=== PATIENT | female | born 1945 | race Caucasian/White ===

== ENCOUNTER → 2016-04-25 | Outpatient (CLI) | payer MEDICARE, OTHER ==
[2015-11-24 08:30] VITALS: BP 123/66
[~2016-04-25] MED LIST: ALPR0.5T6 PO; ALPR1TAB2 PO; ALPR1TAB6 PO; AMIT10TA PO; AMLO10TA2 PO; ASPI81TA9 PO; ATOR10TA PO; ATOR10TA60 PO; Aspirin PO; BACL10TA PO; BESI5DRO OP; BLAC160C PO; BLAC540C4 PO; BUPR150T6 PO; CALC200T3 PO; CARI350T PO; CHOL100017 PO; CHOL4POW2 PO; CLON1TAB3 PO; CYCL10TA2 PO; DIPH1TAB5 PO; DOCU-27 PO; DULA1.5P SQ; DULO60CA44 PO; DULO60CA6 PO; ESTR1PAT66 TD; ESTR1PAT68 TD; FENT1PAT13 TD; FENT1PAT15 TP; FERR-26 PO; FURO-68 PO; FURO40TA4 PO; GABA-585 PO; HYDR-2666 PO; HYDR-2678 PO; HYDR-971 PO; IBUP100T8 PO; IBUP200C PO; INSU100C4 SQ; INSU100I13 SQ; INSU100V10 IJ; INSU100V13 SQ; INSU100V8 SQ; KETO1DRO OP; LABE100T3 PO; LIDO700A4 TP; LISI-334 PO; LOXA10CA PO; MECL12.52 PO; MELA10TA2 PO; MELA1TAB11 PO; MELO-150 PO; MELO-156 PO; METO100T2 PO; METO25TA4 PO; NAPR500T PO; PANT40TA5 PO; POTA2.5T PO; POTA99TA10 PO; PRAM0.125 PO; ROPI0.5T PO; SITA100T PO; TEMA15CA PO; TIZA4CAP PO; TIZA4TAB8 PO; TRAZ150T55 PO; TRAZ50TA15 PO; ZOLP5TAB4 PO; muscle relaxer PO; xanax PO
--- NOTE | 2016-04-26 12:44 | PAIN ---
DATE OF SERVICE: 04/25/2016 DIAGNOSES: 1. Lumbar radiculopathy with post-lumbar laminectomy syndrome. 2. Cervical radiculopathy with cervical degenerative disk disease. HISTORY OF PRESENT ILLNESS: The patient is a 70-year-old female who returns for followup status post previous spinal cord stimulator trial in October of last year, which she did well and had a paddle lead placed in December of last year as well. The patient has had difficulty trying to contact the [employer] medical service representative; however, has had no luck getting the stimulator programmed since it has been placed. The patient reports that it is still working that she can only turn it up or down. She has no good coverage at this time, it is covering the back and the legs to the knees, but needs it to be further into the lower extremities. The patient is very frustrated as this has been several months, she has been trying to call the [employer] sales representative uniforms without any return calls and with ends at each corner. We discussed this in some detail today to get her the name of our [employer] sales representative uniforms who is currently with the company to contact and will make that contact for her to get this reprogrammed. The patient reports the pain is 8 on a scale of 10, low back, bilateral lower extremities, worse when the knee is down where she needs to stimulation at its most, is unable to obtain that at this time and thus does need reprogramming. The patient reports otherwise no new motor or sensory deficits. No new bowel or bladder incontinence or other complaints. Surgery went well. She recovered from it very easily and without events. PHYSICAL EXAMINATION: VITAL SIGNS: The patient's blood pressure 158/77, pulse 76, respirations 18, temperature is 98.3 degrees Fahrenheit, weight is 194 pounds. GENERAL: The patient is awake, alert, oriented, appropriate, very pleasant demeanor. The patient accompanied by her . HEENT: Head shows normocephalic, atraumatic. Extraocular movements are intact and symmetrical. Oral cavity shows mucous membranes moist and pink. NECK: Shows anterior throat supple. CHEST: Shows breath sounds clear to auscultation bilaterally. HEART: Shows S1 and S2 clear. ABDOMEN: Soft, obese, nontender, nondistended. BACK: Shows spine grossly midline. Well healed surgical scars noted in the mid thoracic distribution as well as over the gluteus with easily palpable spinal cord stimulator battery, which is easily palpated, nontender. Wounds appear well healed without erythema without tenderness on palpation. The patient shows good rotation motion of lumbar spine, both laterally as well as extension and flexion. EXTREMITIES: Lower extremities show deep tendon reflexes at 1+ in the patellar and tendo calcaneus tendons. Motor exam is approximately 4 on scale of 5 with quadriceps and hamstring flexion, but intact and 5/5 dorsiflexion and extension bilaterally. Options were discussed with the patient and the patient's old chart was reviewed as her current medication regimen updated. Current review of systems updated today as well. We will contact the [employer] sales representative uniforms, Rosas Carlisle, for reprogramming and have this set up as soon as possible for the patient. The patient will follow up for the reprogramming or any other concerns she may have at this time. RHETT HURD MD DR: TAMIE/antonio JOB#: [id number] / [id number]
== END | disposition home or self-care (01) ==
LOC: PNCL 09:05
PROVIDERS: ATTEND Anesthesiology
DX: M54.16 Radiculopathy, lumbar region (principal); M96.1 Postlaminectomy syndrome, not elsewhere classified
CPT/HCPCS: G0463

== ENCOUNTER 2016-05-03 21:01 | Inpatient (IN) | payer MEDICARE ==
[~2016-05-03] VITALS: Ht 160 cm; Wt 89.4 kg
[2016-05-03 21:44] LABS: BASO # 0.1 x10^3/uL (0.0-0.2); BASO % 1 % (0-3); EOS % 1 % (0-3); HEMATOCRIT 40.6 % (36.0-47.0); HEMOGLOBIN 13.3 g/dL (12.0-15.5); LYMPH # 2.7 x10^3/uL (1.0-4.8); LYMPH % 17 % (24-48); MEAN CORPUSCULAR HEMOGLOBIN 27 pg (25-35); MEAN CORPUSCULAR HGB CONC 33 g/dL (31-37); MEAN CORPUSCULAR VOLUME 81 fL (79-100); MONO % 5 % (0-9); NEUT % 77 % (31-73); PLATELET COUNT 244 x10^3/uL (140-400); RED BLOOD COUNT 5.01 x10^6/uL (3.50-5.40); RED CELL DISTRIBUTION WIDTH 14.9 % (11.5-14.5); WHITE BLOOD COUNT 16.2 x10^3/uL (4.0-11.0)
[2016-05-03 21:56] LABS: CALCIUM 9.6 mg/dL (8.5-10.1); GFR 55.1; POTASSIUM 4.2 mmol/L (3.5-5.1)
[2016-05-03] MEDS ORDERED: IV NORMAL SALINE 1000ML BAG 1,000 ML IV SCH (22:00)
[2016-05-03] MEDS ORDERED: ACETAMINOPHEN 500 MG TABLET PO ONE (22:00)
[2016-05-03] MEDS ORDERED: ONDANSETRON PF 4 MG/2 ML VIAL. IV ONE (22:00)
[2016-05-03 22:02] LABS: ALBUMIN 3.6 g/dL (3.4-5.0); ALBUMIN/GLOBULIN RATIO 0.9 (1.0-1.7); TOTAL BILIRUBIN 0.3 mg/dL (0.2-1.0); TOTAL PROTEIN 7.7 g/dL (6.4-8.2)
[2016-05-03 22:17] LABS: BILIRUBIN,URINE NEGATIVE (NEG); GLUCOSE,URINE >=1000 mg/dL (NEG); NITRITE,URINE NEGATIVE (NEG); PROTEIN,URINE NEGATIVE (NEG-TRACE); UROBILINOGEN,URINE 0.2 mg/dL (0.2 mg/dL)
[2016-05-03 22:26] LABS: BACTERIA,URINE 0 /HPF (0-FEW); SQUAMOUS EPITHELIAL CELL,UR MOD /LPF
[2016-05-03] MEDS ORDERED: HYDROCODONE/APAP 5/325MG TABLET. PO ONE (23:45)
[2016-05-04] VITALS (7 sets, daily range): BP systolic 111–136; BP diastolic 53–81
[2016-05-04] MEDS ORDERED: CEFTRIAXONE 1GM IVPB FOR OMNI 50 ML IV ONE (00:30)
[2016-05-04] MEDS ORDERED: AZITHRMYCN 500MG IVPB FOR OMNI 250 ML IV ONE (00:30)
[2016-05-04] MEDS: AZITHROMYCIN 500 MG in IV NORMAL SALINE 250ML 250 ML IV SCH ×2 (01:21→21:28)
--- NOTE | 2016-05-04 01:29 | ED.ADGEN ---
Past Medical History Past Medical History: Anxiety, CAD, CVA, Depression, Diabetes-Type II, Fibromyalgia, Hypertension, Other Additional Past Medical Histor: neuropathy, cataracts, subarachnoid hemorrhage( 2002) Past Surgical History: Pacemaker, Other Additional Past Surgical Histo: cardiac cath, cataract removal, permanent pacemaker Alcohol Use: None Drug Use: None Adult General Chief Complaint Chief Complaint: FLU SYMPTOM HPI HPI Patient is a 70 year old woman, history of type 2 diabetes mellitus, hypertension, subarachnoid hemorrhage, fibromyalgia, who presents emergency Department with a complaint of generalized malaise, rhinorrhea, cough productive of sputum, headache, body aches, nausea, for the past several days. Patient denies any fevers or chills, any recent travel or surgery, history of DVT or PE, no swelling of the extremities, any sick contacts or exposures. Review of Systems Review of Systems Constitutional: Denies fever or chills. [] Generalized malaise. Eyes: Denies change in visual acuity. [] HENT: Denies nasal congestion or sore throat. [] Respiratory: Cough, productive of sputum, no shortness of breath. Cardiovascular: Denies chest pain or edema. [] GI: Denies abdominal pain, vomiting, bloody stools or diarrhea. Nausea. : Denies dysuria. [] Musculoskeletal: Denies back pain or joint pain. [] Integument: Denies rash. [] Neurologic: Denies headache, focal weakness or sensory changes. [] Endocrine: Denies polyuria or polydipsia. [] Lymphatic: Denies swollen glands. [] Psychiatric: Denies depression or anxiety. [] Current Medications Current Medications Current Medications Medications (Trade) Dose Ordered Sig/Marly Start Time Stop Time Status Last Admin Dose Admin Acetaminophen (Tylenol) 1,000 mg 1X ONCE 05/03/16 22:00 05/03/16 22:01 DC 05/03/16 21:56 1,000 MG Acetaminophen/ Hydrocodone Bitart (Lortab 5/325) 1 tab 1X ONCE 05/03/16 23:45 05/03/16 23:46 DC 05/03/16 23:37 1 TAB Ondansetron HCl (Zofran) 4 mg 1X ONCE 05/03/16 22:00 05/03/16 22:01 DC 05/03/16 21:56 4 MG Sodium Chloride (Iv Sodium Chloride 0.9% 1000ml Bag) 1,000 ml @ 1,000 mls/hr Q1H 05/03/16 22:00 05/03/16 22:59 DC 05/03/16 21:56 1,000 MLS/HR Allergies Allergies Allergies Coded Allergies Type Severity Reaction Last Updated Verified pramipexole Allergy Severe renal failure 11/06/13 Yes Sulfa (Sulfonamide Antibiotics) Allergy Intermediate 11/05/13 Yes clavulanic acid Allergy Intermediate 06/03/14 Yes Physical Exam Physical Exam Constitutional: Well developed, well nourished, no acute distress, non-toxic appearance. [] HENT: Normocephalic, atraumatic, bilateral external ears normal, oropharynx moist, no oral exudates, nose normal. [] Eyes: PERRLA, EOMI, conjunctiva normal, no discharge. [] Neck: Normal range of motion, no tenderness, supple, no stridor. [] Cardiovascular:Heart rate regular rhythm, no murmur, S1, S2, mildly tachycardic. No rubs or gallops. [] Lungs & Thorax: Patient with coarse breath sounds at bases bilaterally, mild scattered wheezing. No rales. No chest wall crepitus or tenderness. [] Abdomen: Bowel sounds normal, soft, no tenderness, no rebound, rigidity, no guarding, no masses, no pulsatile masses. [] Skin: Warm, dry, no erythema, no rash. [] Back: No tenderness, no CVA tenderness. [] Extremities: No tenderness, no cyanosis, no clubbing, ROM intact, no edema. Negative Homans sign. [] Neurologic: Alert and oriented X 3, normal motor function, normal sensory function, no focal deficits noted. [] Psychologic: Affect normal, judgement normal, mood normal. [] Current Patient Data Vital Signs Vital Signs Date Time Temp Pulse Resp B/P Pulse Ox O2 Delivery O2 Flow Rate FiO2 05/03/16 21:25 101.0 106 18 192/85 96 Room Air 101.0 Lab Values Laboratory Tests Test 05/03/16 21:27 05/03/16 22:10 White Blood Count 16.2x10^3/uL (4.0-11.0) H Red Blood Count 5.01x10^6/uL (3.50-5.40) Hemoglobin 13.3g/dL (12.0-15.5) Hematocrit 40.6% (36.0-47.0) Mean Corpuscular Volume 81fL (79-100) Mean Corpuscular Hemoglobin 27pg (25-35) Mean Corpuscular Hemoglobin Concent 33g/dL (31-37) Red Cell Distribution Width 14.9% (11.5-14.5) H Platelet Count 244x10^3/uL (140-400) Neutrophils (%) (Auto) 77% (31-73) H Lymphocytes (%) (Auto) 17% (24-48) L Monocytes (%) (Auto) 5% (0-9) Eosinophils (%) (Auto) 1% (0-3) Basophils (%) (Auto) 1% (0-3) Neutrophils # (Auto) 12.5x10^3uL (1.8-7.7) H Lymphocytes # (Auto) 2.7x10^3/uL (1.0-4.8) Monocytes # (Auto) 0.8x10^3/uL (0.0-1.1) Eosinophils # (Auto) 0.2x10^3/uL (0.0-0.7) Basophils # (Auto) 0.1x10^3/uL (0.0-0.2) Sodium Level 139mmol/L (136-145) Potassium Level 4.2mmol/L (3.5-5.1) Chloride Level 99mmol/L (98-107) Carbon Dioxide Level 34mmol/L (21-32) H Anion Gap 6 (6-14) Blood Urea Nitrogen 13mg/dL (7-20) Creatinine 1.0mg/dL (0.6-1.0) Estimated GFR (Cockcroft-Gault) 55.1 BUN/Creatinine Ratio 13 (6-20) Glucose Level 317mg/dL (70-99) H Calcium Level 9.6mg/dL (8.5-10.1) Total Bilirubin 0.3mg/dL (0.2-1.0) Aspartate Amino Transferase (AST) 22U/L (15-37) Alanine Aminotransferase (ALT) 32U/L (14-59) Alkaline Phosphatase 125U/L (46-116) H Total Protein 7.7g/dL (6.4-8.2) Albumin 3.6g/dL (3.4-5.0) Albumin/Globulin Ratio 0.9 (1.0-1.7) L Urine Collection Type U cath Urine Color Yellow Urine Clarity Clear Urine pH 7.0 Urine Specific Drexel 1.020 Urine Protein Negativemg/dL (NEG-TRACE) Urine Glucose (UA) >=1000mg/dL (NEG) Urine Ketones (Stick) Negativemg/dL (NEG) Urine Blood Negative (NEG) Urine Nitrite Negative (NEG) Urine Bilirubin Negative (NEG) Urine Urobilinogen Dipstick 0.2mg/dL (0.2 mg/dL) Urine Leukocyte Esterase Negative (NEG) Urine RBC 1-2/HPF (0-2) Urine WBC 1-4/HPF (0-4) Urine Squamous Epithelial Cells Mod/LPF Urine Bacteria 0/HPF (0-FEW) Urine Hyaline Casts Few/HPF Urine Mucus Slight/LPF Laboratory Tests 05/03/16 21:27 Laboratory Tests 05/03/16 21:27 EKG EKG 0935: Sinus tachycardia, heart rate 105 beats minute, right axis deviation, paced rhythm, but interpretation. QTC of 456, DE of 214, QRS of 138, does not meet STEMI criteria. As interpreted by me. Radiology/Procedures Radiology/Procedures Chest x-ray: Two-view: Patient with pacemaker in place, noted to have a right elevated hemidiaphragm, with possible atelectasis versus infiltrate, no pneumothorax, no bony or soft tissue abnormalities identified. [] Course & Med Decision Making Course & Med Decision Making Pertinent Labs and Imaging studies reviewed. (See chart for details) Based on patient's examination with coarse breath sounds noted at right lung base, x-ray and laboratory findings with leukocytosis of 16.2, concern for pneumonia. No recent hospitalization or other exposures, patient is agreeable for admission to the hospital and treatment for community-acquired pneumonia. Oxygen saturation is 93% on room air, respiratory rate is unlabored, patient received nebulizer treatment, steroid, initiated on community-acquired antibiotic protocol in the emergency department. Also received IV fluids, as she denied ability to eat over the past several days secondary to nausea and generalized malaise. Nausea resolved, patient resting comfortably and reevaluation. Admit to Dr. Meyer of internal medicine, bridge orders for community-acquired pneumonia and supportive care as stated, as a full admission to the medical telemetry floor due to tachycardia, which is improved, and borderline oxygen saturations. Dragon Disclaimer Dragon Disclaimer This electronic medical record was generated, in whole or in part, using a voice recognition dictation system. Departure Impression: Primary Impression: CAP (community acquired pneumonia) Additional Impression: Fever Disposition: 09 ADMITTED INPATIENT Admitting Physician: Azalia Meyer Condition: IMPROVED Problem Qualifiers Additional Impression: Fever Fever type: unspecified Qualified Code: R50.9 - Fever, unspecified CARMEN VILLALTA DO May 04, 2016 01:29
[2016-05-04] MEDS ORDERED: ONDANSETRON PF 4 MG/2 ML VIAL. IV PRN (01:30)
[2016-05-04] MEDS ORDERED: ACETAMINOPHEN 325 MG TABLET. PO PRN (01:30)
[2016-05-04] MEDS ORDERED: methylPREDNISolone SOD SUCC PF 125 MG/2 ML VIAL. IV ONE (02:00)
[2016-05-04] MEDS: IV NORMAL SALINE 1000ML BAG 1,000 ML IV SCH ×2 (02:03→16:54)
[2016-05-04] MEDS ORDERED: ROPI0.5T PO (04:11)
--- NOTE | 2016-05-04 06:12 | EKG ---
[facility] [address] [place] [address] Test Date: 2016-05-03 Test Time: 21:35:12 Pat Name: GIORGIO LOVE Department: Room: Gender: F Company Marker: : 1945 Requested By: CARMEN VILLALTA Order Number: [id number] Reading MD: Measurements Intervals [place]une Rate: 105 P: -156 AK: 214 QRS: 100 QRSD: 138 T: -12 QT: 342 QTc: 456 Interpretive Statements SINUS TACHYCARDIA PROLONGED AK INTERVAL RIGHTWARD AXIS NON SPECIFIC INTRAVENTRICULAR BLOCK QRS(T) CONTOUR ABNORMALITY CONSISTENT WITH ANTERIOR INFARCT POSSIBLY RECENT CONSISTENT WITH HIGH LATERAL INFARCT PROBABLY OLD ABNORMAL ECG RI6.01 No previous ECG available for comparison
[2016-05-04 06:55] LABS: OBC FLU VALID
[2016-05-04] MEDS: IPRATRPIUM/ALBUTEROL 0.5/2.5MG 3 ML NEBU. NEB SCH ×4 (07:23→20:00)
--- NOTE | 2016-05-04 07:52 | RAD ---
Chest, 2 views, 05/03/2016: History: Flulike symptoms Comparison is made to a study from 11/15/2015. A left-sided transvenous pacemaker remains in place with 2 leads extending in the right heart. Spinal stimulator leads extend into the thoracic spinal canal. There is mild chronic elevation of the right hemidiaphragm. The left ventricle is mildly prominent. The pulmonary vascularity is normal. There is mild streaky atelectasis in the right base. The left lung is clear. There is no evidence of pleural fluid. IMPRESSION: 1. Mild left ventricular prominence. 2. Mild chronic elevation of the right hemidiaphragm with mild right basilar atelectasis.
[2016-05-04] MEDS ORDERED: ALPRAZOLAM 1 MG TABLET PO PRN (08:15)
[2016-05-04] MEDS ORDERED: CHOLESTYRAMINE/ASPARTAME 4 GM PACKET PO PRN (08:15)
[2016-05-04] MEDS ORDERED: tiZANidine 4 MG TABLET. PO PRN (08:15)
[2016-05-04] MEDS ORDERED: TEMAZEPAM 15 MG CAPSULE PO PRN (08:15)
[2016-05-04] MEDS ORDERED: MECLIZINE HCL 12.5 MG TABLET. PO PRN (08:15)
[2016-05-04] MEDS ORDERED: HYDROCODONE/APAP 5/325MG TABLET. PO PRN (08:15)
[2016-05-04] MEDS: LABETALOL HCL 100 MG TABLET PO SCH ×2 (08:58→21:35)
[2016-05-04] MEDS: buPROPion XL 150 MG TAB.ER.24H PO SCH (08:58)
[2016-05-04] MEDS: INSULIN ASPART 300 UNITS/3 ML INSULN.PEN SQ SCH ×5 (09:02→16:58)
[2016-05-04] MEDS ORDERED: DEXTROSE 50% 25 GM / 50ML DISP.SYRIN. IV PRN (09:30)
[2016-05-04] MEDS ORDERED: ALPRAZOLAM 0.5 MG TABLET PO PRN (11:15)
[2016-05-04] MEDS ORDERED: INSULIN ASPART 300 UNITS/3 ML INSULN.PEN SQ SCH (11:30)
[2016-05-04] MEDS ORDERED: INSULIN DETEMIR 300 UNITS/3 ML INSULN.PEN. SQ STA (12:02)
--- NOTE | 2016-05-04 12:06 | PDOC1 ---
History and Physical Date of Admission Date of Admission DATE: 05/04/16 TIME: 11:56 Identification/Chief Complaint Chief Complaint SOA, fevers at home Source Source: Caregiver, Chart review, Patient History of Present Illness History of Present Illness 70 y/o female about a week hx SOA, fevers, greenish sputum, weak. MAybe some transient hypoxia at ER, CXR shows some atelectasis or haziness on the bases, Pt started on CAP coverage, Pt has chronic back hx, multiple back sxs, has indwelling spinal stimulator. Wheezing less, ambulating slowly in the halls. WBC 16 Started on CAP coverage Lives at home with family BS 500s today, got 20 novolog plus SS and now BS 400s ON high doses insulin at home Past Medical History Cardiovascular: CAD, HTN, Hyperlipidemia, Other CENTRAL NERVOUS SYSTEM: CVA, Other GI: GERD Heme/Onc: Anemia NOS Hepatobiliary: No pertinent hx Psych: Anxiety, Depression Musculoskeletal: low back pain, Osteoarthritis, Other Rheumatologic: Fibromyalgia Infectious disease: No pertinent hx Renal/: No pertinent hx Endocrine: Diabetes Past Surgical History Past Surgical History: Pacemaker, Cataract Removal Family History Family History: Diabetes, Hypertension, Family History Unknown Social History Smoke: No ALCOHOL: none Drugs: None Current Problem List Problem List Problems Medical Problems: (1) CAP (community acquired pneumonia) Status: Acute (2) Fever Status: Acute Problems: Current Medications Current Medications Current Medications Sodium Chloride (Iv Sodium Chloride 0.9% 1000ml Bag) 1,000 ml @ 1,000 mls/hr Q1H IV Last administered on 05/03/16 21:56; Start 05/03/16 at 22:00; Stop at 22:59; Status DC Ondansetron HCl (Zofran) 4 mg 1X ONCE IV Last administered on 05/03/16 21:56 ; Start 05/03/16 at 22:00; Stop 05/03/16 at 22:01; Status DC Acetaminophen (Tylenol) 1,000 mg 1X ONCE PO Last administered on 05/03/16 21: 56; Start 05/03/16 at 22:00; Stop 05/03/16 at 22:01; Status DC Acetaminophen/ Hydrocodone Bitart 1 tab 1 tab 1X ONCE PO Last administered on 05/03/16 23:37; Start 05/03/16 at 23:45; Stop 05/03/16 at 23:46; Status DC Ceftriaxone Sodium 1 gm/ Sodium Chloride 50 ml @ 100 mls/hr Q24H IV ; Start at 22:00 Azithromycin 500 mg/Sodium Chloride 250 ml @ 250 mls/hr Q24H IV ; Start at 21:00; Stop 05/07/16 at 20:59 Ceftriaxone Sodium 50 ml @ 100 mls/hr 1X ONCE IV Last administered on 01:21; Start 05/04/16 at 00:30; Stop 05/04/16 at 00:59; Status DC Azithromycin (Zithromax 500mg Ivpb For Omni) 250 ml @ 250 mls/hr 1X ONCE IV Last administered on 05/04/16 01:21; Start 05/04/16 at 00:30; Stop 05/04/16 at 01:29; Status DC Ondansetron HCl 4 mg 4 mg PRN Q8HRS PRN IV NAUSEA/VOMITING; Start 05/04/16 at 01:30; Stop 05/05/16 at 01:29 Sodium Chloride (Iv Sodium Chloride 0.9% 1000ml Bag) 1,000 ml @ 75 mls/hr [id number] IV Last administered on 05/04/16 02:03; Start 05/04/16 at 01:17; Stop 05/05/16 at 01:16 Acetaminophen (Tylenol) 650 mg PRN Q4HRS PRN PO FEVER Last administered on 05/04 05:44; Start 05/04/16 at 01:30; Stop 05/05/16 at 01:29 Albuterol/ Ipratropium (Duoneb) 3 ml RTQID NEB Last administered on 05/04/16 07:23; Start 05/04/16 at 08:00; Stop 05/05/16 at 07:59 Methylprednisolone Sodium Succinate (Solu-Medrol 125mg Vial) 125 mg 1X ONCE IV Last administered on 05/04/16 02:03; Start 05/04/16 at 02:00; Stop 05/04/16 at 02:01; Status DC Insulin Aspart (Novolog) 20 units TIDAC SQ ; Start 05/04/16 at 11:30; Stop 05/04 at 11:30; Status DC Alprazolam (Xanax) 0.5 mg PRN DAILY PRN PO ANXIETY / AGITATION Last administered on 05/04/16 08:58; Start 05/04/16 at 08:15; Stop 05/04/16 at 11:11 ; Status DC Bupropion HCl (Wellbutrin Xl) 150 mg DAILY PO Last administered on 05/04/16 08 :58; Start 05/04/16 at 09:00 Gabapentin (Neurontin) 300 mg QHS PO ; Start 05/04/16 at 21:00 Acetaminophen/ Hydrocodone Bitart (Lortab 5/325) 1 tab PRN Q8HRS PRN PO BREAKTHROUGH PAIN Last administered on 05/04/16 08:58; Start 05/04/16 at 08:15 Labetalol HCl (Trandate) 50 mg BID PO Last administered on 05/04/16 08:58; Start 05/04/16 at 09:00 Meclizine HCl (Antivert) 12.5 mg PRN TID PRN PO DIZZINESS; Start 05/04/16 at 08 :15 Pantoprazole Sodium (Protonix) 40 mg QHS PO ; Start 05/04/16 at 21:00 Temazepam (Restoril) 30 mg PRN QHS PRN PO INSOMNIA; Start 05/04/16 at 08:15 Tizanidine HCl (Zanaflex) 4 mg PRN TID PRN PO MUSCLE SPASMS; Start 05/04/16 at 08:15 Ergocalciferol (Vitamin D2) 50,000 unit QSU PO ; Start 05/06/16 at 09:00 Cholestyramine Resin (Questran Light) 4 gm PRN DAILY PRN PO STOMACH CRAMPING; Start 05/04/16 at 08:15 Non-Formulary Medication 1.5 mg QSU SQ ; Start 05/06/16 at 16:00; Status UNV Duloxetine HCl (Cymbalta) 60 mg QHS PO ; Start 05/04/16 at 21:00 Insulin Detemir (Levemir) 60 units QHS SQ ; Start 05/04/16 at 21:00 Ropinirole HCl (Requip) 0.5 mg QHS PO ; Start 05/04/16 at 21:00 Insulin Aspart (Novolog) 20 units TIDAC SQ Last administered on 2/17/17at 09:02 ; Start 05/04/16 at 08:30 Insulin Aspart (Novolog) 0-9 UNITS TIDWMEALS SQ ; Start 05/04/16 at 12:00 Dextrose 12.5 gm PRN Q15MIN PRN IV SEE COMMENTS; Start 05/04/16 at 09:30 Alprazolam (Xanax) 0.5 mg PRN DAILY PRN PO ANXIETY / AGITATION; Start 05/04/16 at 11:15 Active Scripts Active Reported Requip (Ropinirole Hcl) 0.5 Mg Tablet 1 Tab PO QHS Cymbalta (Duloxetine Hcl) 60 Mg Capsule.dr 60 Mg PO QHS Levemir (Insulin Detemir) 100 Unit/1 Ml Vial 60 Units SQ QHS Trulicity (Dulaglutide) 1.5 Mg/0.5 Ml Pen.injctr 1.5 Mg SQ QSU Gabapentin 100 Mg Capsule 300 Mg PO QHS Cholestyramine Packet (Cholestyramine (With Sugar)) 4 Gm Powd.pack 4 Gm PO PRN DAILY PRN Meclizine Hcl 12.5 Mg Tablet 0.5-1 Tab PO PRN TID PRN Zanaflex (Tizanidine Hcl) 4 Mg Tablet 1-2 Tab PO PRN TID PRN Temazepam 15 Mg Capsule 30 Mg PO HS PRN Vitamin D (Cholecalciferol (Vitamin D3)) 10,000 Unit Capsule 50,000 Unit PO QSU Atorvastatin Calcium 10 Mg Tablet 10 Mg PO HS Novolog (Insulin Aspart) 100 Unit/1 Ml Cartridge 8 Unit SQ TIDAC Pantoprazole Sodium 40 Mg Tablet.dr 1 Tab PO QHS Alprazolam 1 Mg Tablet 0.5-1 Tab PO PRN DAILY PRN Labetalol Hcl 100 Mg Tablet 0.5 Tab PO BID [place] 5-325 Tablet (Acetaminophen/Hydrocodone Bitart) 1 Each Tablet 1 Tab PO PRN Q8HRS PRN Bupropion Xl (Bupropion Hcl) 150 Mg Tab.er.24h 2 Tab PO DAILY Allergies Allergies: Coded Allergies: pramipexole (Verified Allergy, Severe, renal failure, 11/06/13) Sulfa (Sulfonamide Antibiotics) (Verified Allergy, Intermediate, 11/05/13) clavulanic acid (Verified Allergy, Intermediate, 06/03/14) ROS General: YES: Fatigue, Malaise PSYCHOLOGICAL ROS: No: Anxiety, Behavioral Disorder, Concentration difficultie , Decreased libido, Depression, Disorientation, Hallucinations, Hostility, Irritablity, Memory difficulties, Mood Swings, Obsessive thoughts, Other, Physical abuse, Sexual abuse, Sleep disturbances, Suicidal ideation Eyes: No Blurry vision, No Decreased vision, No Double vision, No Dry eyes, No Excessive tearing, No Eye Pain, No Itchy Eyes, No Loss of vision, No Other, No Photophobia, No Scotomata, No Uses contacts, No Uses glasses HEENT: No: Epistaxis, Heacaches, Hearing change, Nasal congestion, Nasal discharge, Oral lesions, Other, Sinus pain, Sneezing, Snoring, Sore Throat, Tinnitus, Vertigo, Visual Changes, Vocal changes Hematological and Lymphatic: No: Bleeding Problems, Blood Clots, Blood Transfusions, Brusing, Night Sweats, Other, Pallor, Swollen Lymph Nodes ENDOCRINE: No: Breast Changes, Galactorrhea, Hair Pattern Changes, Hot Flashes , Malaise/lethargy, Mood Swings, Other, Palpitations, Polydipsia/polyuria, Skin Changes, Temperature Intolerance, Unexpected Weight Changes Respiratory: YES: Cough, SOB with excertion, Shortness of breath, Sputum Changes Cardiovascular: No Chest Pain, No Edema, No Lt Headedness, No Orthopnea, No Other, No Palpitations, No Paroxysmal Noc. Dyspnea Gastrointestinal: No Abdominal Pain, No Constipation, No Diarrhea, No Hematochezia, No Melena, No Nausea, No Other, No Vomiting Genitourinary: No , No , No , No , No , No , No , No Discharge, No Dysuria, No Flank Pain, No Frequency, No Hematuria, No Incontinence, No Other, No Pain, No Retention, No Urgency Musculoskeletal: No Gait Disturbance, No Joint Pain, No Joint Stiffness, No Joint Swelling, No Muscle Pain, No Muscular Weakness, No Other, No Pain In:, No Swelling In: Neurological: No Behavorial Changes, No Bowel/Bladder ControlChng, No Confusion , No Dizziness, No Gait Disturbance, No Headaches, No Impaired Coord/balance, No Memory Loss, No Numbness/Tingling, No Other, No Seizures, No Speech Problems , No Tremors, No Visual Changes, No Weakness Skin: No Acne, No Dry Skin, No Eczema, No Hair Changes, No Lumps, No Mole Changes, No Mottling, No Nail Changes, No Other, No Pruritus, No Rash, No Skin Lesion Changes Physical Exam General: Alert, Cooperative HEENT: PERRLA Lungs: Normal air movement Heart: S1S2, RRR, no thrills, no rubs Cardiovascular: S1, S2 Breasts: Normal Abdomen: Normal bowel sounds, Soft, No tenderness, No hepatosplenomegaly, No masses Rectal Exam: not examined PELVIC: Nml ext genitalia Extremities: No clubbing, No cyanosis, No edema, Normal pulses, No tenderness/ swelling Skin: No rashes, No breakdown, No significant lesion Neuro: Normal gait, Normal speech, Strength at 5/5 X4 ext, Normal tone, Sensation intact, Cranial nerves 3-12 NL, Reflexes 2+ Psych/Mental Status: Mental status NL, Mood NL Vitals Vitals Vital Signs Date Time Temp Pulse Resp B/P Pulse Ox O2 Delivery O2 Flow Rate FiO2 05/04/16 11:12 98.2 91 18 131/59 93 Room Air 98.2 05/04/16 08:00 1.5 Labs Labs Laboratory Tests Test 05/03/16 21:27 05/03/16 21:30 05/03/16 22:10 White Blood Count 16.2x10^3/uL (4.0-11.0) Red Blood Count 5.01x10^6/uL (3.50-5.40) Hemoglobin 13.3g/dL (12.0-15.5) Hematocrit 40.6% (36.0-47.0) Mean Corpuscular Volume 81fL (79-100) Mean Corpuscular Hemoglobin 27pg (25-35) Mean Corpuscular Hemoglobin Concent 33g/dL (31-37) Red Cell Distribution Width 14.9% (11.5-14.5) Platelet Count 244x10^3/uL (140-400) Neutrophils (%) (Auto) 77% (31-73) Lymphocytes (%) (Auto) 17% (24-48) Monocytes (%) (Auto) 5% (0-9) Eosinophils (%) (Auto) 1% (0-3) Basophils (%) (Auto) 1% (0-3) Neutrophils # (Auto) 12.5x10^3uL (1.8-7.7) Lymphocytes # (Auto) 2.7x10^3/uL (1.0-4.8) Monocytes # (Auto) 0.8x10^3/uL (0.0-1.1) Eosinophils # (Auto) 0.2x10^3/uL (0.0-0.7) Basophils # (Auto) 0.1x10^3/uL (0.0-0.2) Sodium Level 139mmol/L (136-145) Potassium Level 4.2mmol/L (3.5-5.1) Chloride Level 99mmol/L (98-107) Carbon Dioxide Level 34mmol/L (21-32) Anion Gap 6 (6-14) Blood Urea Nitrogen 13mg/dL (7-20) Creatinine 1.0mg/dL (0.6-1.0) Estimated GFR (Cockcroft-Gault) 55.1 BUN/Creatinine Ratio 13 (6-20) Glucose Level 317mg/dL (70-99) Calcium Level 9.6mg/dL (8.5-10.1) Total Bilirubin 0.3mg/dL (0.2-1.0) Aspartate Amino Transf (AST/SGOT) 22U/L (15-37) Alanine Aminotransferase (ALT/SGPT) 32U/L (14-59) Alkaline Phosphatase 125U/L (46-116) Total Protein 7.7g/dL (6.4-8.2) Albumin 3.6g/dL (3.4-5.0) Albumin/Globulin Ratio 0.9 (1.0-1.7) Influenza Type A Antigen Negative (NEGATIVE) Influenza Type B Antigen Negative (NEGATIVE) Urine Collection Type U cath Urine Color Yellow Urine Clarity Clear Urine pH 7.0 Urine Specific [place] 1.020 Urine Protein Negativemg/dL (NEG-TRACE) Urine Glucose (UA) >=1000mg/dL (NEG) Urine Ketones (Stick) Negativemg/dL (NEG) Urine Blood Negative (NEG) Urine Nitrite Negative (NEG) Urine Bilirubin Negative (NEG) Urine Urobilinogen Dipstick 0.2mg/dL (0.2 mg/dL) Urine Leukocyte Esterase Negative (NEG) Urine RBC 1-2/HPF (0-2) Urine WBC 1-4/HPF (0-4) Urine Squamous Epithelial Cells Mod/LPF Urine Bacteria 0/HPF (0-FEW) Urine Hyaline Casts Few/HPF Urine Mucus Slight/LPF Laboratory Tests Test 05/03/16 21:27 05/03/16 21:30 05/03/16 22:10 White Blood Count 16.2x10^3/uL (4.0-11.0) Red Blood Count 5.01x10^6/uL (3.50-5.40) Hemoglobin 13.3g/dL (12.0-15.5) Hematocrit 40.6% (36.0-47.0) Mean Corpuscular Volume 81fL (79-100) Mean Corpuscular Hemoglobin 27pg (25-35) Mean Corpuscular Hemoglobin Concent 33g/dL (31-37) Red Cell Distribution Width 14.9% (11.5-14.5) Platelet Count 244x10^3/uL (140-400) Neutrophils (%) (Auto) 77% (31-73) Lymphocytes (%) (Auto) 17% (24-48) Monocytes (%) (Auto) 5% (0-9) Eosinophils (%) (Auto) 1% (0-3) Basophils (%) (Auto) 1% (0-3) Neutrophils # (Auto) 12.5x10^3uL (1.8-7.7) Lymphocytes # (Auto) 2.7x10^3/uL (1.0-4.8) Monocytes # (Auto) 0.8x10^3/uL (0.0-1.1) Eosinophils # (Auto) 0.2x10^3/uL (0.0-0.7) Basophils # (Auto) 0.1x10^3/uL (0.0-0.2) Sodium Level 139mmol/L (136-145) Potassium Level 4.2mmol/L (3.5-5.1) Chloride Level 99mmol/L (98-107) Carbon Dioxide Level 34mmol/L (21-32) Anion Gap 6 (6-14) Blood Urea Nitrogen 13mg/dL (7-20) Creatinine 1.0mg/dL (0.6-1.0) Estimated GFR (Cockcroft-Gault) 55.1 BUN/Creatinine Ratio 13 (6-20) Glucose Level 317mg/dL (70-99) Calcium Level 9.6mg/dL (8.5-10.1) Total Bilirubin 0.3mg/dL (0.2-1.0) Aspartate Amino Transf (AST/SGOT) 22U/L (15-37) Alanine Aminotransferase (ALT/SGPT) 32U/L (14-59) Alkaline Phosphatase 125U/L (46-116) Total Protein 7.7g/dL (6.4-8.2) Albumin 3.6g/dL (3.4-5.0) Albumin/Globulin Ratio 0.9 (1.0-1.7) Influenza Type A Antigen Negative (NEGATIVE) Influenza Type B Antigen Negative (NEGATIVE) Urine Collection Type U cath Urine Color Yellow Urine Clarity Clear Urine pH 7.0 Urine Specific [place] 1.020 Urine Protein Negativemg/dL (NEG-TRACE) Urine Glucose (UA) >=1000mg/dL (NEG) Urine Ketones (Stick) Negativemg/dL (NEG) Urine Blood Negative (NEG) Urine Nitrite Negative (NEG) Urine Bilirubin Negative (NEG) Urine Urobilinogen Dipstick 0.2mg/dL (0.2 mg/dL) Urine Leukocyte Esterase Negative (NEG) Urine RBC 1-2/HPF (0-2) Urine WBC 1-4/HPF (0-4) Urine Squamous Epithelial Cells Mod/LPF Urine Bacteria 0/HPF (0-FEW) Urine Hyaline Casts Few/HPF Urine Mucus Slight/LPF VTE Prophylaxis Ordered VTE Prophylaxis Devices: Yes VTE Pharmacological Prophylaxi: Yes Assessment/Plan Assessment/Plan 1. Presumed CAP 2. Acute hypoxic respi failure 3. CHropnic lumbago 4. GIORGIO, vasomotor 5. Mod PCM 6. HTN 7. DM 2 uncontrolled - got steroids PLAN: Extra levemir 10 x 1 now 20 units tid plus high dose SSI Levemir 60 qhs COnt CAP coverage Requests hydrocodone scheduled PT/OT Sputum test if able COugh med MYRIAM Woodward MD May 04, 2016 12:06
[2016-05-04] MEDS: HYDROCODONE/APAP 10/325 TABLET. PO PRN ×2 (14:22→19:32)
[2016-05-04] MEDS ORDERED: DULOXETINE HCL 30 MG CAPSULE.DR. PO SCH (21:00)
[2016-05-04] MEDS ORDERED: rOPINIRole 0.25 MG TABLET. PO SCH (21:00)
[2016-05-04] MEDS ORDERED: GABAPENTIN 100 MG CAPSULE. PO SCH (21:00)
[2016-05-04] MEDS ORDERED: INSULIN DETEMIR 300 UNITS/3 ML INSULN.PEN. SQ SCH (21:00)
[2016-05-04] MEDS ORDERED: PANTOPRAZOLE 40 MG TABLET. PO SCH (21:00)
[2016-05-04] MEDS ORDERED: CEFTRIAXONE SODIUM 1 GM in IV NORMAL SALINE 50ML 50 ML IV SCH (22:00)
[2016-05-05 03:59] VITALS: BP 125/64
[2016-05-05 04:02] LABS: BASO % 0 % (0-3); EOS % 0 % (0-3); LYMPH # 2.2 x10^3/uL (1.0-4.8); LYMPH % 18 % (24-48); MEAN CORPUSCULAR HEMOGLOBIN 26 pg (25-35); MEAN CORPUSCULAR HGB CONC 32 g/dL (31-37); MEAN CORPUSCULAR VOLUME 82 fL (79-100); MONO % 6 % (0-9); NEUT % 75 % (31-73); PLATELET COUNT 211 x10^3/uL (140-400); RED BLOOD COUNT 4.16 x10^6/uL (3.50-5.40); RED CELL DISTRIBUTION WIDTH 14.6 % (11.5-14.5); WHITE BLOOD COUNT 12.1 x10^3/uL (4.0-11.0)
[2016-05-05 04:56] LABS: CALCIUM 9.2 mg/dL (8.5-10.1); CREATININE 0.9 mg/dL (0.6-1.0); GFR 62.3; POTASSIUM 4.9 mmol/L (3.5-5.1)
[2016-05-05] MEDS: HYDROCODONE/APAP 10/325 TABLET. PO PRN (06:29)
[2016-05-05 07:00] VITALS: BP 126/57
[2016-05-05] MEDS: IPRATRPIUM/ALBUTEROL 0.5/2.5MG 3 ML NEBU. NEB SCH (07:14)
[2016-05-05] MEDS: INSULIN ASPART 300 UNITS/3 ML INSULN.PEN SQ SCH ×4 (08:09→12:11)
[2016-05-05] MEDS: LABETALOL HCL 100 MG TABLET PO SCH (08:48)
[2016-05-05] MEDS: buPROPion XL 150 MG TAB.ER.24H PO SCH (08:48)
[2016-05-05 11:00] VITALS: BP 141/70
[2016-05-05] MEDS ORDERED: HYDROCODONE/APAP 5/325MG TABLET. PO PRN (13:15)
[2016-05-05] MEDS ORDERED: LEVO500T38 PO (13:42)
--- NOTE | 2016-05-05 13:46 | PDOC3 ---
Discharge Summary Visit Information Date of Admission: May 03, 2016 Date of Discharge: May 05, 2016 Admitting Diagnosis Comment: Assessment/Plan 1. Presumed CAP 2. Acute hypoxic respi failure 3. CHropnic lumbago 4. GIORGIO, vasomotor 5. Mod PCM 6. HTN 7. DM 2 uncontrolled - got steroids Final Diagnosis Problems Medical Problems: (1) Acute bronchitis Status: Acute (2) CAP (community acquired pneumonia) Status: Acute (3) Fever Status: Acute Brief Hospital Course Allergies Allergies Coded Allergies Type Severity Reaction Last Updated Verified pramipexole Allergy Severe renal failure 11/06/13 Yes Sulfa (Sulfonamide Antibiotics) Allergy Intermediate 11/05/13 Yes clavulanic acid Allergy Intermediate 06/03/14 Yes Vital Signs Vital Signs Date Time Temp Pulse Resp B/P Pulse Ox O2 Delivery O2 Flow Rate FiO2 05/05/16 11:00 97.7 70 20 141/70 94 Room Air 97.7 05/04/16 08:00 1.5 Lab Results Laboratory Tests Test 05/03/16 21:27 05/03/16 21:30 05/03/16 22:10 05/04/16 07:48 White Blood Count 16.2x10^3/uL (4.0-11.0) Red Blood Count 5.01x10^6/uL (3.50-5.40) Hemoglobin 13.3g/dL (12.0-15.5) Hematocrit 40.6% (36.0-47.0) Mean Corpuscular Volume 81fL (79-100) Mean Corpuscular Hemoglobin 27pg (25-35) Mean Corpuscular Hemoglobin Concent 33g/dL (31-37) Red Cell Distribution Width 14.9% (11.5-14.5) Platelet Count 244x10^3/uL (140-400) Neutrophils (%) (Auto) 77% (31-73) Lymphocytes (%) (Auto) 17% (24-48) Monocytes (%) (Auto) 5% (0-9) Eosinophils (%) (Auto) 1% (0-3) Basophils (%) (Auto) 1% (0-3) Neutrophils # (Auto) 12.5x10^3uL (1.8-7.7) Lymphocytes # (Auto) 2.7x10^3/uL (1.0-4.8) Monocytes # (Auto) 0.8x10^3/uL (0.0-1.1) Eosinophils # (Auto) 0.2x10^3/uL (0.0-0.7) Basophils # (Auto) 0.1x10^3/uL (0.0-0.2) Sodium Level 139mmol/L (136-145) Potassium Level 4.2mmol/L (3.5-5.1) Chloride Level 99mmol/L (98-107) Carbon Dioxide Level 34mmol/L (21-32) Anion Gap 6 (6-14) Blood Urea Nitrogen 13mg/dL (7-20) Creatinine 1.0mg/dL (0.6-1.0) Estimated GFR (Cockcroft-Gault) 55.1 BUN/Creatinine Ratio 13 (6-20) Glucose Level 317mg/dL (70-99) Calcium Level 9.6mg/dL (8.5-10.1) Total Bilirubin 0.3mg/dL (0.2-1.0) Aspartate Amino Transf (AST/SGOT) 22U/L (15-37) Alanine Aminotransferase (ALT/SGPT) 32U/L (14-59) Alkaline Phosphatase 125U/L (46-116) Total Protein 7.7g/dL (6.4-8.2) Albumin 3.6g/dL (3.4-5.0) Albumin/Globulin Ratio 0.9 (1.0-1.7) Influenza Type A Antigen Negative (NEGATIVE) Influenza Type B Antigen Negative (NEGATIVE) Urine Collection Type U cath Urine Color Yellow Urine Clarity Clear Urine pH 7.0 Urine Specific [place] 1.020 Urine Protein Negativemg/dL (NEG-TRACE) Urine Glucose (UA) >=1000mg/dL (NEG) Urine Ketones (Stick) Negativemg/dL (NEG) Urine Blood Negative (NEG) Urine Nitrite Negative (NEG) Urine Bilirubin Negative (NEG) Urine Urobilinogen Dipstick 0.2mg/dL (0.2 mg/dL) Urine Leukocyte Esterase Negative (NEG) Urine RBC 1-2/HPF (0-2) Urine WBC 1-4/HPF (0-4) Urine Squamous Epithelial Cells Mod/LPF Urine Bacteria 0/HPF (0-FEW) Urine Hyaline Casts Few/HPF Urine Mucus Slight/LPF Glucose (Fingerstick) 510mg/dL (70-99) Test 05/04/16 09:45 05/04/16 11:15 05/04/16 16:27 05/04/16 21:00 Clostridium difficile Toxin (PCR) Negative (Negative) Glucose (Fingerstick) 492mg/dL (70-99) 398mg/dL (70-99) 319mg/dL (70-99) Test 05/05/16 03:35 05/05/16 07:49 05/05/16 11:07 White Blood Count 12.1x10^3/uL (4.0-11.0) Red Blood Count 4.16x10^6/uL (3.50-5.40) Hemoglobin 11.0g/dL (12.0-15.5) Hematocrit 34.0% (36.0-47.0) Mean Corpuscular Volume 82fL (79-100) Mean Corpuscular Hemoglobin 26pg (25-35) Mean Corpuscular Hemoglobin Concent 32g/dL (31-37) Red Cell Distribution Width 14.6% (11.5-14.5) Platelet Count 211x10^3/uL (140-400) Neutrophils (%) (Auto) 75% (31-73) Lymphocytes (%) (Auto) 18% (24-48) Monocytes (%) (Auto) 6% (0-9) Eosinophils (%) (Auto) 0% (0-3) Basophils (%) (Auto) 0% (0-3) Neutrophils # (Auto) 9.1x10^3uL (1.8-7.7) Lymphocytes # (Auto) 2.2x10^3/uL (1.0-4.8) Monocytes # (Auto) 0.8x10^3/uL (0.0-1.1) Eosinophils # (Auto) 0.0x10^3/uL (0.0-0.7) Basophils # (Auto) 0.0x10^3/uL (0.0-0.2) Sodium Level 143mmol/L (136-145) Potassium Level 4.9mmol/L (3.5-5.1) Chloride Level 104mmol/L (98-107) Carbon Dioxide Level 31mmol/L (21-32) Anion Gap 8 (6-14) Blood Urea Nitrogen 21mg/dL (7-20) Creatinine 0.9mg/dL (0.6-1.0) Estimated GFR (Cockcroft-Gault) 62.3 Glucose Level 256mg/dL (70-99) Calcium Level 9.2mg/dL (8.5-10.1) Glucose (Fingerstick) 192mg/dL (70-99) 134mg/dL (70-99) Laboratory Tests Test 05/04/16 16:27 05/04/16 21:00 05/05/16 03:35 05/05/16 07:49 Glucose (Fingerstick) 398mg/dL (70-99) 319mg/dL (70-99) 192mg/dL (70-99) White Blood Count 12.1x10^3/uL (4.0-11.0) Red Blood Count 4.16x10^6/uL (3.50-5.40) Hemoglobin 11.0g/dL (12.0-15.5) Hematocrit 34.0% (36.0-47.0) Mean Corpuscular Volume 82fL (79-100) Mean Corpuscular Hemoglobin 26pg (25-35) Mean Corpuscular Hemoglobin Concent 32g/dL (31-37) Red Cell Distribution Width 14.6% (11.5-14.5) Platelet Count 211x10^3/uL (140-400) Neutrophils (%) (Auto) 75% (31-73) Lymphocytes (%) (Auto) 18% (24-48) Monocytes (%) (Auto) 6% (0-9) Eosinophils (%) (Auto) 0% (0-3) Basophils (%) (Auto) 0% (0-3) Neutrophils # (Auto) 9.1x10^3uL (1.8-7.7) Lymphocytes # (Auto) 2.2x10^3/uL (1.0-4.8) Monocytes # (Auto) 0.8x10^3/uL (0.0-1.1) Eosinophils # (Auto) 0.0x10^3/uL (0.0-0.7) Basophils # (Auto) 0.0x10^3/uL (0.0-0.2) Sodium Level 143mmol/L (136-145) Potassium Level 4.9mmol/L (3.5-5.1) Chloride Level 104mmol/L (98-107) Carbon Dioxide Level 31mmol/L (21-32) Anion Gap 8 (6-14) Blood Urea Nitrogen 21mg/dL (7-20) Creatinine 0.9mg/dL (0.6-1.0) Estimated GFR (Cockcroft-Gault) 62.3 Glucose Level 256mg/dL (70-99) Calcium Level 9.2mg/dL (8.5-10.1) Test 05/05/16 11:07 Glucose (Fingerstick) 134mg/dL (70-99) Brief Hospital Course Ms. Nicolas is a 70 old female admitted for acute bronchitis, NO PNA on CXR, always in pain, chronci back pain, multiple back sxs, follows with Dr. Patti dimas and rena. Given Rx for levaquin, AHs some diarrhea, non toxic has iBS,. Script given nO pain meds needed - already has at home ConusltsL: none Proc none DispO; home (does not want HH or rehab)- walks very slow;y Dw Rn and at bedside dc 34 mins > 60% counselling alone Discharge Information Condition at Discharge: Improved, Stable Disposition/Orders: D/C to Home Scheduled Atorvastatin Calcium (Atorvastatin Calcium) 10 MG PO HS (Reported) Bupropion Hcl (Bupropion Xl) 2 TAB PO DAILY (Reported) Cholecalciferol (Vitamin D3) (Vitamin D) 50,000 UNIT PO QSU (Reported) Dulaglutide (Trulicity) 1.5 MG SQ QSU (Reported) Duloxetine Hcl (Cymbalta) 60 MG PO QHS (Reported) Gabapentin (Gabapentin) 300 MG PO QHS (Reported) Insulin Aspart (Novolog) 8 UNIT SQ TIDAC (Reported) Insulin Detemir (Levemir) 60 UNITS SQ QHS (Reported) Labetalol Hcl (Labetalol Hcl) 0.5 TAB PO BID (Reported) Pantoprazole Sodium (Pantoprazole Sodium) 1 TAB PO QHS (Reported) Ropinirole Hcl (Requip) 1 TAB PO QHS (Reported) Scheduled PRN Alprazolam (Alprazolam) 0.5-1 TAB PO PRN DAILY PRN PRN ANXIETY / AGITATION ( Reported) Cholestyramine (With Sugar) (Cholestyramine Packet) 4 GM PO PRN DAILY PRN PRN STOMACH CRAMPING (Reported) Hydrocodone/Apap 5-325 ([place] 5-325 Tablet) 1 TAB PO PRN Q8HRS PRN PRN BREAKTHROUGH PAIN (Reported) Meclizine Hcl (Meclizine Hcl) 0.5-1 TAB PO PRN TID PRN PRN DIZZINESS (Reported) Temazepam (Temazepam) 30 MG PO HS PRN PRN INSOMNIA (Reported) Tizanidine Hcl (Zanaflex) 1-2 TAB PO PRN TID PRN PRN MUSCLE SPASMS (Reported) Discontinued Medications Cyclobenzaprine Hcl (Cyclobenzaprine Hcl) 10 MG PO TID (Reported) Ferrous Sulfate (Ferrous Sulfate) 1 TAB PO DAILY (Reported) Furosemide (Lasix) 40 MG PO DAILY (Reported) MYRIAM AMES MD May 05, 2016 13:46
[2016-05-05 15:00] VITALS: BP 131/67
[2016-05-06] MEDS ORDERED: ERGOCALCIFEROL (VITAMIN D2) 50,000 UNIT CAPSULE PO SCH (09:00)
[2016-05-06] MEDS ORDERED: NON FORMULARY ITEM (Dulaglutide (Trulicity) 1.5 MG) SQ SCH (16:00)
== END 2016-05-05 16:09 | disposition home or self-care (01) | DRG 682 ==
LOC: ER 21:01 → 5 SOUTH 23:58
PROVIDERS: ADMIT Internal Medicine; ATTEND Internal Medicine
DX: N17.0 Acute kidney failure with tubular necrosis (principal); J18.9 Pneumonia, unspecified organism; J96.01 Acute respiratory failure with hypoxia; E44.0 Moderate protein-calorie malnutrition; R65.10 Systemic inflammatory response syndrome (SIRS) of non-infectious origin without acute organ dysfunction; J20.9 Acute bronchitis, unspecified; E11.65 Type 2 diabetes mellitus with hyperglycemia; E78.5 Hyperlipidemia, unspecified; F41.9 Anxiety disorder, unspecified; I10 Essential (primary) hypertension; I25.10 Atherosclerotic heart disease of native coronary artery without angina pectoris; K21.9 Gastro-esophageal reflux disease without esophagitis; K58.0 Irritable bowel syndrome with diarrhea; M79.7 Fibromyalgia; D64.9 Anemia, unspecified; F32.9 Major depressive disorder, single episode, unspecified; Z88.2 Allergy status to sulfonamides; Z88.8 Allergy status to other drugs, medicaments and biological substances; Z86.73 Personal history of transient ischemic attack (TIA), and cerebral infarction without residual deficits; Z79.4 Long term (current) use of insulin
CPT/HCPCS: 36415; 71020; 80048; 80053; 81001; 82947; 85027; 87324; 87804; 93005; 94250; 94640; 94760; 96361; 96365; 96375; J0456; J0690; J0696; J1815; J2405; J2930; J7030; J7050; J7620; 99285-25

== ENCOUNTER 2016-05-13 19:20 | Inpatient (IN) | payer MEDICARE ==
[~2016-05-13] VITALS: Ht 160 cm; Wt 89.4 kg
[~2016-05-13 19:20] MED LIST changes: +LEVO500T38 PO
[2016-05-13 20:16] LABS: BASO % 0 % (0-3); EOS % 2 % (0-3); HEMATOCRIT 35.7 % (36.0-47.0); HEMOGLOBIN 12.1 g/dL (12.0-15.5); LYMPH # 2.5 x10^3/uL (1.0-4.8); LYMPH % 34 % (24-48); MEAN CORPUSCULAR HEMOGLOBIN 28 pg (25-35); MEAN CORPUSCULAR HGB CONC 34 g/dL (31-37); MEAN CORPUSCULAR VOLUME 82 fL (79-100); MONO % 7 % (0-9); NEUT % 56 % (31-73); PLATELET COUNT 232 x10^3/uL (140-400); RED BLOOD COUNT 4.36 x10^6/uL (3.50-5.40); RED CELL DISTRIBUTION WIDTH 14.1 % (11.5-14.5); WHITE BLOOD COUNT 7.2 x10^3/uL (4.0-11.0)
--- NOTE | 2016-05-13 20:28 | RAD ---
PROCEDURE CT head without contrast. HISTORY Dizziness. TECHNIQUE Helical CT imaging of the brain is performed without IV contrast. PQRS: One or more the following individualized dose reduction techniques were utilized for the study: 1. Automated exposure control. 2. Adjustment of the mA and/or kV according to patient size. 3. Use of iterative reconstruction technique. COMPARISON CT head without contrast May 31, 2014. FINDINGS There is no midline shift or mass effect. No extra-axial fluid collection or intraparenchymal hemorrhage. Howell-white matter differentiation is preserved. The ventricles and sulci are prominent, consistent with age-related cerebral atrophy. There is periventricular white matter hypoattenuation, nonspecific but commonly due to chronic small vessel ischemic disease in a patient of this age. 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 The visualized paranasal sinuses and mastoid air cells are clear. The globes and orbits appear intact. No acute calvarial abnormality. IMPRESSION No acute intracranial abnormality. Electronically signed by: Tejas Low MD (May 13, 2016 20:26:36)
[2016-05-13 20:43] LABS: ALBUMIN 3.1 g/dL (3.4-5.0); ALBUMIN/GLOBULIN RATIO 0.8 (1.0-1.7); CALCIUM 9.1 mg/dL (8.5-10.1); GFR 55.1; POTASSIUM 4.1 mmol/L (3.5-5.1); TOTAL BILIRUBIN 0.3 mg/dL (0.2-1.0)
[2016-05-13 20:53] LABS: BILIRUBIN,URINE NEGATIVE (NEG); GLUCOSE,URINE >=1000 mg/dL (NEG); NITRITE,URINE NEGATIVE (NEG); PROTEIN,URINE NEGATIVE (NEG-TRACE); UROBILINOGEN,URINE 0.2 mg/dL (0.2 mg/dL)
[2016-05-13] MEDS ORDERED: ACETAMINOPHEN 325 MG TABLET. PO PRN (21:00)
[2016-05-13] MEDS ORDERED: ONDANSETRON PF 4 MG/2 ML VIAL. IV PRN (21:00)
[2016-05-13] MEDS ORDERED: DEXTROSE 50% 25 GM / 50ML DISP.SYRIN. IV PRN (21:00)
[2016-05-13 21:02] LABS: BACTERIA,URINE 0 /HPF (0-FEW); RBC,URINE 0 /HPF (0-2); SQUAMOUS EPITHELIAL CELL,UR FEW /LPF
--- NOTE | 2016-05-13 21:06 | PHYS DOC ---
Past Medical History Past Medical History: Anxiety, CAD, CVA, Depression, Diabetes-Type II, Fibromyalgia, Hypertension, Other Additional Past Medical Histor: neuropathy, cataracts, subarachnoid hemorrhage( 2002) Past Surgical History: Pacemaker, Other Additional Past Surgical Histo: cardiac cath, cataract removal, permanent pacemaker Alcohol Use: None Drug Use: None Adult General Chief Complaint Chief Complaint: DIZZY/LIGHT HEADED HPI HPI 70-year-old female who lives at home with a family member presents with a variety of complaints. First she states the pain in her left leg from sciatica is very severe. This is not been well-controlled with her when necessary medicines at home. Today she became very forgetful and extra somnolent and her family member think she took either too many Xanax her too many hydrocodone but not sure which. Patient states she thought she was visiting with her grandson but he lives out of state. Patient also states she's been very dizzy throughout the day today and was nauseated secondary to the dizziness. She denied any headache or lateralizing neurologic weakness. On arrival to the emergency department she states the dizziness is better.] Review of Systems Review of Systems Constitutional: Denies fever or chills [] Eyes: Denies change in visual acuity, redness, or eye pain [] HENT: Denies nasal congestion or sore throat [] Respiratory: Denies cough or shortness of breath [] Cardiovascular: No additional information not addressed in HPI [] GI: Denies abdominal pain, nausea, vomiting, bloody stools or diarrhea [] : Denies dysuria or hematuria [] Musculoskeletal: Denies back pain or joint pain [] Integument: Denies rash or skin lesions [] Neurologic: Per history of present illness [] Endocrine: Denies polyuria or polydipsia [] Current Medications Current Medications Current Medications Medications (Trade) Dose Ordered Sig/Marly Start Time Stop Time Status Last Admin Dose Admin Sodium Chloride (Iv Sodium Chloride 0.9% 1000ml Bag) 1,000 ml @ 125 mls/hr Q8H 05/13/16 20:53 05/14/16 20:52 DC 05/14/16 21:02 125 MLS/HR Allergies Allergies Allergies Coded Allergies Type Severity Reaction Last Updated Verified pramipexole Allergy Severe renal failure 11/06/13 Yes Sulfa (Sulfonamide Antibiotics) Allergy Intermediate 11/05/13 Yes clavulanic acid Allergy Intermediate 3/19/15 Yes Physical Exam Physical Exam Constitutional: Well developed, well nourished, no acute distress, non-toxic appearance. [] HENT: Normocephalic, atraumatic, bilateral external ears normal, oropharynx moist, no oral exudates, nose normal. [] Eyes: PERRLA, EOMI, conjunctiva normal, no discharge. [] Neck: Normal range of motion, no tenderness, supple, no stridor. [] Cardiovascular:Heart rate regular rhythm, no murmur [] Lungs & Thorax: Bilateral breath sounds clear to auscultation [] Abdomen: Bowel sounds normal, soft, no tenderness, no masses, no pulsatile masses. [] Skin: Warm, dry, no erythema, no rash. [] Back: No tenderness, no CVA tenderness. [] Extremities: No tenderness, no cyanosis, no clubbing, ROM intact, no edema. [] Neurologic: Alert and oriented X 3, normal motor function, normal sensory function, no focal deficits noted. [] Psychologic: Affect normal, judgement normal, mood normal. [] Current Patient Data Vital Signs Vital Signs Date Time Temp Pulse Resp B/P Pulse Ox O2 Delivery O2 Flow Rate FiO2 05/13/16 20:55 60 22 145/74 98 Room Air 05/13/16 19:40 98.6 98.6 Lab Values Laboratory Tests Test 05/13/16 19:55 05/13/16 20:45 White Blood Count 7.2x10^3/uL (4.0-11.0) Red Blood Count 4.36x10^6/uL (3.50-5.40) Hemoglobin 12.1g/dL (12.0-15.5) Hematocrit 35.7% (36.0-47.0) L Mean Corpuscular Volume 82fL (79-100) Mean Corpuscular Hemoglobin 28pg (25-35) Mean Corpuscular Hemoglobin Concent 34g/dL (31-37) Red Cell Distribution Width 14.1% (11.5-14.5) Platelet Count 232x10^3/uL (140-400) Neutrophils (%) (Auto) 56% (31-73) Lymphocytes (%) (Auto) 34% (24-48) Monocytes (%) (Auto) 7% (0-9) Eosinophils (%) (Auto) 2% (0-3) Basophils (%) (Auto) 0% (0-3) Neutrophils # (Auto) 4.0x10^3uL (1.8-7.7) Lymphocytes # (Auto) 2.5x10^3/uL (1.0-4.8) Monocytes # (Auto) 0.5x10^3/uL (0.0-1.1) Eosinophils # (Auto) 0.2x10^3/uL (0.0-0.7) Basophils # (Auto) 0.0x10^3/uL (0.0-0.2) Sodium Level 136mmol/L (136-145) Potassium Level 4.1mmol/L (3.5-5.1) Chloride Level 97mmol/L (98-107) L Carbon Dioxide Level 30mmol/L (21-32) Anion Gap 9 (6-14) Blood Urea Nitrogen 17mg/dL (7-20) Creatinine 1.0mg/dL (0.6-1.0) Estimated GFR (Cockcroft-Gault) 55.1 BUN/Creatinine Ratio 17 (6-20) Glucose Level 514mg/dL (70-99) *H Calcium Level 9.1mg/dL (8.5-10.1) Total Bilirubin 0.3mg/dL (0.2-1.0) Aspartate Amino Transferase (AST) 35U/L (15-37) Alanine Aminotransferase (ALT) 40U/L (14-59) Alkaline Phosphatase 116U/L (46-116) Troponin I Quantitative 0.044ng/mL (0.000-0.055) Total Protein 7.0g/dL (6.4-8.2) Albumin 3.1g/dL (3.4-5.0) L Albumin/Globulin Ratio 0.8 (1.0-1.7) L Urine Collection Type Unknown Urine Color Yellow Urine Clarity Clear Urine pH 6.0 Urine Specific [place] >=1.030 Urine Protein Negativemg/dL (NEG-TRACE) Urine Glucose (UA) >=1000mg/dL (NEG) Urine Ketones (Stick) Negativemg/dL (NEG) Urine Blood Negative (NEG) Urine Nitrite Negative (NEG) Urine Bilirubin Negative (NEG) Urine Urobilinogen Dipstick 0.2mg/dL (0.2 mg/dL) Urine Leukocyte Esterase Negative (NEG) Urine RBC 0/HPF (0-2) Urine WBC 1-4/HPF (0-4) Urine Squamous Epithelial Cells Few/LPF Urine Bacteria 0/HPF (0-FEW) Laboratory Tests 05/13/16 19:55 Laboratory Tests 05/13/16 19:55 EKG EKG [EKG: Left bundle branch block otherwise no significant issues rate in the 70s] Radiology/Procedures Radiology/Procedures []PROCEDURE: HEAD WO CONTRAST PROCEDURE CT head without contrast. HISTORY Dizziness. TECHNIQUE Helical CT imaging of the brain is performed without IV contrast. PQRS: One or more the following individualized dose reduction techniques were utilized for the study: 1. Automated exposure control. 2. Adjustment of the mA and/or kV according to patient size. 3. Use of iterative reconstruction technique. COMPARISON CT head without contrast May 31, 2014. FINDINGS There is no midline shift or mass effect. No extra-axial fluid collection or intraparenchymal hemorrhage. Howell-white matter differentiation is preserved. The ventricles and sulci are prominent, consistent with age-related cerebral atrophy. There is periventricular white matter hypoattenuation, nonspecific but commonly due to chronic small vessel ischemic disease in a patient of this age. 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 The visualized paranasal sinuses and mastoid air cells are clear. The globes and orbits appear intact. No acute calvarial abnormality. IMPRESSION No acute intracranial abnormality. Impressions: Chest x-ray: Pacemaker in place cardiomegaly mild vascular congestion otherwise unremarkable as interpreted by me Course & Med Decision Making Course & Med Decision Making Pertinent Labs and Imaging studies reviewed. (See chart for details) [ED course: Evaluation reveals a 70-year-old female who was very anxious and standing in her room secondary to pain in her left leg. She states this is been unrelieved by medications at home. She also was noted to have elevated blood sugar. We were unable to get her pain under control therefore I felt she was a candidate for admission to the hospital for pain control.] Dragon Disclaimer Dragon Disclaimer This electronic medical record was generated, in whole or in part, using a voice recognition dictation system. Departure Departure Impression: Primary Impression: Hyperglycemia Additional Impressions: Dizziness Left leg pain Disposition: ADMITTED INPATIENT Admitting Physician: Other (Dr. Espinosa) Condition: GUARDED Referrals: LO LEDESMA MD (PCP) Problem Qualifiers ROSANA BUENROSTRO DO May 13, 2016 21:06
[2016-05-13] MEDS ORDERED: INSULIN REGULAR 100 UNIT/ML 10ML VIAL. ONE (21:10)
[2016-05-13] MEDS ORDERED: INSULIN ASPART 100 UNIT/ML 10ML VIAL. SQ ONE (21:15)
[2016-05-13] MEDS ORDERED: INSULIN REGULAR 100 UNIT/ML 10ML VIAL. SQ ONE (21:15)
--- NOTE | 2016-05-13 21:52 | ACF ---
Admission Forms Criteria DIABETES Clinical Indications for Admission to Inpatient Care (Place 'X' for any and all applicable criteria): Admission is indicated by presence of ALL (if I & II) or ANY ONE (if III or IV) of the following (1)(2)(3)(4): [ ]I. Diabetes is uncontrolled as indicated by ANY ONE of the following: [ ]a) Diabetic ketoacidosis as indicated by ALL of the following (8): [ ]i) Hyperglycemia (eg, plasma glucose greater than 200 mg/ dL (11.1 mmol/L)) [ ]ii) Acidosis (eg, arterial pH less than 7.30, serum bicarbonate level less than 15 mEq/L (mmol/L)) [ ]iii) Moderate ketonuria or ketonemia [ ]b) Hyperglycemic hyperosmolar state as indicated by ALL of the following(9)(10): [ ]i) Neurologic dysfunction (eg, stupor, coma, hemiparesis , seizure)(13) [ ]ii) Plasma glucose greater than 600 mg/dL (33.3 mmol/L) [ ]iii) Serum osmolality greater than 320 mOsm/kg (mmol/kg) [ ]c) Severe signs or symptoms secondary to hyperglycemia indicated by ANY ONE of the following: [ ]i) Altered mental status(10) [ ]ii) Significant hypovolemia or dehydration [ ]iii) Intractable nausea or vomiting [ ]iv) Unexplained fever or severe infection [ ]v) Severe electrolyte abnormality (eg, hypokalemia, hyperkalemia, hypernatremia) [ ]II. Management at other levels of care (Also use Diabetes: Observation Care as appropriate) is not feasible because of ANY ONE of the following: [ ]a) Condition was not adequately corrected with treatment at other levels of care. [ ]b) Treatment at other levels of care is not appropriate because of condition severity (eg, hyperosmolar coma). [ ]III. Contraindications and/or Inappropriate clinical situations for Observational Care in patients with Diabetes, when ANY ONE of the following is required: [ ]a) Patient require specific diagnostic workup or therapeutic intervention 22 [ ]b) Patient with abnormal vital signs or altered mental status 23 [X]IV. General contraindications and/or Inappropriate clinical situations for Observational Care in patients with Diabetes, when ANY ONE of the following is required: [X]a) Prediction of prolongation of LOS based on ANY ONE of the following may be considered as a contraindication for observational care 2, 3, 4, 5, 6, 7, 8, 9, 10, 11 [X]i) Age > 65 yrs. [ ]ii) Patient arriving by ambulance [ ]iii) Patient with high acuity [ ]iv) Patient requiring vital sign monitoring [ ]v) Patient on IV medication [ ]b) Systolic blood pressures 180mmHg 3,12 [ ]c) Patient with altered mental status including delirium and other alteration of consciousness, (3) [ ]d) Patient whose discharge disposition will be to a nursing home home or rehabilitation home should not be managed in Emergency Department Observation Unit. CMS rule requires 3 days hospital stay before such placement.3,13 [ ]e) Patient with failure to thrive due to broad array of etiologies 3,16,17 [ ]f) Inability to ambulate 3,14 Extended stay beyond goal length of stay may be needed for(3)(20): [ ]a) Treatment of precipitating causes [ ]b) Development of hypoglycemia [ ]c) Complications of treatment [ ]d) Complications of decompensated diabetes (eg, acute gastric dilatation, persistent metabolic or neurologic derangement) [ ]e) Active Comorbidities [ ]f) Older patients( 65 years or older) The original [facility] content created by [employer] has been revised. The portions of the content which have been revised are identified through the use of italic text or in bold,and [facility] has neither reviewed nor approved the modified material. All other unmodified content is copyright [facility]. Please see references footnoted in the original [facility] edition 2016 Admission Criteria Met?: Yes KIKA FRAZIER May 13, 2016 21:52
[2016-05-13] MEDS: FENTANYL PF 100 MCG/2 ML VIAL. IV PRN (22:24)
[2016-05-14] VITALS (7 sets, daily range): BP systolic 111–139; BP diastolic 55–79
[2016-05-14] MEDS: IV NORMAL SALINE 1000ML BAG 1,000 ML IV SCH ×3 (00:47→21:02)
[2016-05-14] MEDS: FENTANYL PF 100 MCG/2 ML VIAL. IV PRN ×5 (02:17→22:59)
--- NOTE | 2016-05-14 06:48 | EKG ---
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
[2016-05-14] MEDS ORDERED: INSULIN ASPART 300 UNITS/3 ML INSULN.PEN SQ SCH (08:00)
--- NOTE | 2016-05-14 08:03 | RAD ---
Portable chest, 05/13/2016: History: Substernal pain Comparison is made to a study from 05/03/2016. A left-sided transvenous pacemaker remains in place with 2 leads extending into the right heart. Spinal stimulator leads extend into the lower thoracic spinal canal. There is mild unchanged elevation of the right hemidiaphragm. The left ventricle is mildly prominent. The pulmonary vascularity is normal. No pulmonary infiltrates are seen. There is no evidence of pleural fluid. IMPRESSION: No acute cardiopulmonary abnormality is detected.
[2016-05-14] MEDS ORDERED: ONDANSETRON PF 4 MG/2 ML VIAL. IV PRN (09:07)
[2016-05-14] MEDS ORDERED: DEXTROSE 50% 25 GM / 50ML DISP.SYRIN. IV PRN (09:15)
[2016-05-14] MEDS ORDERED: TEMAZEPAM 15 MG CAPSULE PO PRN (09:15)
[2016-05-14] MEDS ORDERED: MECLIZINE HCL 12.5 MG TABLET. PO PRN (09:15)
[2016-05-14 09:26] LABS: BASO % 0 % (0-3); EOS % 2 % (0-3); HEMATOCRIT 36.2 % (36.0-47.0); HEMOGLOBIN 12.3 g/dL (12.0-15.5); LYMPH # 2.3 x10^3/uL (1.0-4.8); LYMPH % 29 % (24-48); MEAN CORPUSCULAR HEMOGLOBIN 27 pg (25-35); MEAN CORPUSCULAR HGB CONC 34 g/dL (31-37); MEAN CORPUSCULAR VOLUME 79 fL (79-100); MONO % 7 % (0-9); NEUT % 62 % (31-73); PLATELET COUNT 204 x10^3/uL (140-400); RED BLOOD COUNT 4.57 x10^6/uL (3.50-5.40); WHITE BLOOD COUNT 8.1 x10^3/uL (4.0-11.0)
[2016-05-14 10:03] LABS: ALBUMIN 3.5 g/dL (3.4-5.0); ALBUMIN/GLOBULIN RATIO 1.1 (1.0-1.7); CALCIUM 9.1 mg/dL (8.5-10.1); CREATININE 0.8 mg/dL (0.6-1.0); GFR 71.3; POTASSIUM 3.8 mmol/L (3.5-5.1); TOTAL BILIRUBIN 0.5 mg/dL (0.2-1.0); TOTAL PROTEIN 6.8 g/dL (6.4-8.2)
[2016-05-14] MEDS: LABETALOL HCL 100 MG TABLET PO SCH ×2 (10:28→21:03)
[2016-05-14] MEDS: INSULIN ASPART 300 UNITS/3 ML INSULN.PEN SQ SCH ×4 (12:44→17:11)
--- NOTE | 2016-05-14 13:24 | PDOC1 ---
History and Physical Date of Admission Date of Admission DATE: 05/14/16 TIME: 13:19 Identification/Chief Complaint Chief Complaint confusion Source Source: Caregiver, Chart review, Patient History of Present Illness History of Present Illness Pt known to me, I just dec 1-2 weeks ago for: Date of Admission: May 03, 2016 Date of Discharge: May 05, 2016 Admitting Diagnosis Comment: Assessment/Plan 1. Presumed CAP 2. Acute hypoxic respi failure 3. CHropnic lumbago 4. GIORGIO, vasomotor 5. Mod PCM 6. HTN 7. DM 2 uncontrolled - got steroids She comes in today bec of confusion, is retired and stays with her at home, thoughts of maybe taking too much pain meds or xanax., Known to Nelly Molina for multiple back sxs and also Dr. Patti dimas, for chronic pain has back stimulator. Unfortunately this lady has always been in pain for her life mostly that it is taking a toll on her mental health, SIgnif time today, at least 76 mins cumulative, 45 mins maybe in room, discussed about chronic pain, ADRI and seeing a psychiatrist,S he does, On welbutrin for 1 yr now and un recalled antidepressant for many yrs, Talked about revisiting psychiatrist, developing tolerance etc,' LAbs ok, CXR and cT vhead normal, only abnormal is second trop 0.7 known to Paulo bosch, She complains of non specific CP, cough, abd pain, multiple somatic complaints but recent work up including MPI is neg, Just saw cards 1 week ago in office. SHe is working with the back stimulator company to adjust some settings Past Medical History Cardiovascular: CAD, HTN, Hyperlipidemia, Other CENTRAL NERVOUS SYSTEM: CVA, Other GI: GERD Heme/Onc: Anemia NOS Hepatobiliary: No pertinent hx Psych: Anxiety, Depression Musculoskeletal: low back pain, Osteoarthritis, Other Rheumatologic: Fibromyalgia Infectious disease: No pertinent hx Renal/: No pertinent hx Endocrine: Diabetes Past Surgical History Past Surgical History: Pacemaker, Cataract Removal Family History Family History: Diabetes, Hypertension, Family History Unknown Social History ALCOHOL: none Drugs: None Current Problem List Problem List Problems Medical Problems: (1) Dizziness Status: Acute (2) Hyperglycemia Status: Acute (3) Left leg pain Status: Acute Problems: Current Medications Current Medications Current Medications Ondansetron HCl (Zofran) 4 mg PRN Q8HRS PRN IV NAUSEA/VOMITING; Start 05/13/16 at 21:00; Stop 05/14/16 at 09:10; Status DC Fentanyl Citrate 50 mcg 50 mcg PRN Q1HR PRN IV PAIN Last administered on 05:38; Start 05/13/16 at 21:00; Stop 05/14/16 at 09:10; Status DC Sodium Chloride (Iv Sodium Chloride 0.9% 1000ml Bag) 1,000 ml @ 125 mls/hr Q8H IV Last administered on 05/14/16 00:48; Start 05/13/16 at 20:53; Stop at 20:52 Acetaminophen (Tylenol) 650 mg PRN Q4HRS PRN PO FEVER; Start 05/13/16 at 21:00 ; Stop 05/14/16 at 20:59 Insulin Aspart (Novolog) 0-7 UNITS TIDWMEALS SQ ; Start 05/14/16 at 08:00; Stop 05/14/16 at 09:10; Status DC Dextrose 12.5 gm PRN Q15MIN PRN IV SEE COMMENTS; Start 05/13/16 at 21:00 Insulin Aspart (Novolog Vial) 10 unit 1X ONCE SQ ; Start 05/13/16 at 21:15; Stop 05/13/16 at 21:15; Status DC Insulin Human Regular (Novolin R Vial) 100 unit STK-MED ONCE .ROUTE ; Start at 21:10; Stop 05/13/16 at 21:11; Status DC Insulin Human Regular (Novolin R Vial) 10 unit 1X ONCE SQ Last administered on 05/13/16 21:21; Start 05/13/16 at 21:15; Stop 05/13/16 at 21:16; Status DC Fentanyl Citrate (Fentanyl 2ml Vial) 50 mcg PRN Q2HR PRN IV PAIN Last administered on 05/14/16 10:27; Start 05/14/16 at 09:07 Ondansetron HCl (Zofran) 4 mg PRN Q6HRS PRN IV NAUSEA/VOMITING; Start 05/14/16 at 09:07 Insulin Aspart (Novolog) 0-9 UNITS TIDWMEALS SQ Last administered on 05/14/16 12:46; Start 05/14/16 at 12:00 Dextrose 12.5 gm PRN Q15MIN PRN IV SEE COMMENTS; Start 05/14/16 at 09:15 Atorvastatin Calcium (Lipitor) 10 mg HS PO ; Start 05/14/16 at 21:00 Bupropion HCl (Wellbutrin Xl) 150 mg DAILY PO ; Start 05/15/16 at 09:00 Gabapentin (Neurontin) 300 mg QHS PO ; Start 05/14/16 at 21:00 Labetalol HCl (Trandate) 100 mg BID PO Last administered on 05/14/16 10:28; Start 05/14/16 at 10:00 Meclizine HCl (Antivert) 12.5 mg PRN TID PRN PO DIZZINESS; Start 05/14/16 at 09 :15 Pantoprazole Sodium (Protonix) 40 mg QHS PO ; Start 05/14/16 at 21:00 Temazepam (Restoril) 30 mg HS PRN PO INSOMNIA; Start 05/14/16 at 09:15 Tizanidine HCl (Zanaflex) 4 mg PRN TID PRN PO MUSCLE SPASMS; Start 05/14/16 at 09:15 Ergocalciferol (Vitamin D2) 50,000 unit QSU PO ; Start 05/20/16 at 16:00 Non-Formulary Medication 1.5 mg QSU SQ ; Start 05/20/16 at 16:00; Status UNV Duloxetine HCl (Cymbalta) 60 mg QHS PO ; Start 05/14/16 at 21:00 Insulin Aspart (Novolog) 20 units TIDAC SQ Last administered on 05/14/16 12:44 ; Start 05/14/16 at 11:30 Insulin Detemir (Levemir) 60 units QHS SQ ; Start 05/14/16 at 21:00 Ropinirole HCl (Requip) 0.5 mg QHS PO ; Start 05/14/16 at 21:00 Active Scripts Active Levaquin (Levofloxacin) 500 Mg Tablet 1 Tab PO DAILY Reported Requip (Ropinirole Hcl) 0.5 Mg Tablet 1 Tab PO QHS Received dose last night Take again tonight Cymbalta (Duloxetine Hcl) 60 Mg Capsule.dr 60 Mg PO QHS Received dose last night Take again tonight Levemir (Insulin Detemir) 100 Unit/1 Ml Vial 60 Units SQ QHS Was given 60 units last night Take again tonight Trulicity (Dulaglutide) 1.5 Mg/0.5 Ml Pen.injctr 1.5 Mg SQ QSU Not given on this admission Take when normally scheduled to take Gabapentin 100 Mg Capsule 300 Mg PO QHS Received dose last night take again tonight Meclizine Hcl 12.5 Mg Tablet 0.5-1 Tab PO PRN TID PRN Not given on this admission Take when needed Zanaflex (Tizanidine Hcl) 4 Mg Tablet 1-2 Tab PO PRN TID PRN Last dose given yesterday May take again when needed Temazepam 15 Mg Capsule 30 Mg PO HS PRN Received dose last night Take tonight if needed Vitamin D (Cholecalciferol (Vitamin D3)) 10,000 Unit Capsule 50,000 Unit PO QSU Not given on this admission Take when normally scheduled Atorvastatin Calcium 10 Mg Tablet 10 Mg PO HS Not given on this admission Take when needed Novolog (Insulin Aspart) 100 Unit/1 Ml Cartridge 20 Unit SQ TIDAC Pantoprazole Sodium 40 Mg Tablet.dr 1 Tab PO QHS Received dose last night Take again tonight Alprazolam 1 Mg Tablet 0.5-1 Tab PO PRN BID PRN Not given on this admission Take when needed Labetalol Hcl 100 Mg Tablet 0.5 Tab PO BID Gave dose this am Take again tongiht [place] 5-325 Tablet (Acetaminophen/Hydrocodone Bitart) 1 Each Tablet 1 Tab PO PRN Q4HRS PRN Given dose at 1:45 pm May take again after 9:45 Bupropion Xl (Bupropion Hcl) 150 Mg Tab.er.24h 2 Tab PO DAILY Gave this morning Take again tomorrow morning Allergies Allergies: Coded Allergies: pramipexole (Verified Allergy, Severe, renal failure, 11/06/13) Sulfa (Sulfonamide Antibiotics) (Verified Allergy, Intermediate, 11/05/13) clavulanic acid (Verified Allergy, Intermediate, 06/03/14) ROS General: YES: Fatigue, Malaise PSYCHOLOGICAL ROS: YES: Anxiety, Decreased libido, Depression Eyes: No Blurry vision, No Decreased vision, No Double vision, No Dry eyes, No Excessive tearing, No Eye Pain, No Itchy Eyes, No Loss of vision, No Other, No Photophobia, No Scotomata, No Uses contacts, No Uses glasses HEENT: No: Epistaxis, Heacaches, Hearing change, Nasal congestion, Nasal discharge, Oral lesions, Other, Sinus pain, Sneezing, Snoring, Sore Throat, Tinnitus, Vertigo, Visual Changes, Vocal changes ALLERGY AND IMMUNOLOGY: No: Hives, Insect Bite Sensitivity, Itchy/Watery Eyes, Nasal Congestion, Other, Post Nasal Drip, Seasonal Allergies Hematological and Lymphatic: No: Bleeding Problems, Blood Clots, Blood Transfusions, Brusing, Night Sweats, Other, Pallor, Swollen Lymph Nodes ENDOCRINE: YES: Malaise/lethargy, Mood Swings, No: Breast Changes, Galactorrhea, Hair Pattern Changes, Hot Flashes, Other, Palpitations, Polydipsia/polyuria, Skin Changes, Temperature Intolerance, Unexpected Weight Changes Respiratory: YES: Cough Cardiovascular: yes Chest Pain Gastrointestinal: Yes Abdominal Pain Musculoskeletal: Yes Joint Pain, Yes Other (back pain) Neurological: No Behavorial Changes, No Bowel/Bladder ControlChng, No Confusion , No Dizziness, No Gait Disturbance, No Headaches, No Impaired Coord/balance, No Memory Loss, No Numbness/Tingling, No Other, No Seizures, No Speech Problems , No Tremors, No Visual Changes, No Weakness Skin: No Acne, No Dry Skin, No Eczema, No Hair Changes, No Lumps, No Mole Changes, No Mottling, No Nail Changes, No Other, No Pruritus, No Rash, No Skin Lesion Changes Vitals Vitals Vital Signs Date Time Temp Pulse Resp B/P Pulse Ox O2 Delivery O2 Flow Rate FiO2 05/14/16 11:07 97.7 79 18 120/61 95 Room Air 97.7 Labs Labs Laboratory Tests Test 05/13/16 19:55 05/13/16 20:45 05/13/16 22:12 05/13/16 23:23 White Blood Count 7.2x10^3/uL (4.0-11.0) Red Blood Count 4.36x10^6/uL (3.50-5.40) Hemoglobin 12.1g/dL (12.0-15.5) Hematocrit 35.7% (36.0-47.0) Mean Corpuscular Volume 82fL (79-100) Mean Corpuscular Hemoglobin 28pg (25-35) Mean Corpuscular Hemoglobin Concent 34g/dL (31-37) Red Cell Distribution Width 14.1% (11.5-14.5) Platelet Count 232x10^3/uL (140-400) Neutrophils (%) (Auto) 56% (31-73) Lymphocytes (%) (Auto) 34% (24-48) Monocytes (%) (Auto) 7% (0-9) Eosinophils (%) (Auto) 2% (0-3) Basophils (%) (Auto) 0% (0-3) Neutrophils # (Auto) 4.0x10^3uL (1.8-7.7) Lymphocytes # (Auto) 2.5x10^3/uL (1.0-4.8) Monocytes # (Auto) 0.5x10^3/uL (0.0-1.1) Eosinophils # (Auto) 0.2x10^3/uL (0.0-0.7) Basophils # (Auto) 0.0x10^3/uL (0.0-0.2) Sodium Level 136mmol/L (136-145) Potassium Level 4.1mmol/L (3.5-5.1) Chloride Level 97mmol/L (98-107) Carbon Dioxide Level 30mmol/L (21-32) Anion Gap 9 (6-14) Blood Urea Nitrogen 17mg/dL (7-20) Creatinine 1.0mg/dL (0.6-1.0) Estimated GFR (Cockcroft-Gault) 55.1 BUN/Creatinine Ratio 17 (6-20) Glucose Level 514mg/dL (70-99) Calcium Level 9.1mg/dL (8.5-10.1) Total Bilirubin 0.3mg/dL (0.2-1.0) Aspartate Amino Transf (AST/SGOT) 35U/L (15-37) Alanine Aminotransferase (ALT/SGPT) 40U/L (14-59) Alkaline Phosphatase 116U/L (46-116) Troponin I Quantitative 0.044ng/mL (0.000-0.055) Total Protein 7.0g/dL (6.4-8.2) Albumin 3.1g/dL (3.4-5.0) Albumin/Globulin Ratio 0.8 (1.0-1.7) Urine Collection Type Unknown Urine Color Yellow Urine Clarity Clear Urine pH 6.0 Urine Specific [place] >=1.030 Urine Protein Negativemg/dL (NEG-TRACE) Urine Glucose (UA) >=1000mg/dL (NEG) Urine Ketones (Stick) Negativemg/dL (NEG) Urine Blood Negative (NEG) Urine Nitrite Negative (NEG) Urine Bilirubin Negative (NEG) Urine Urobilinogen Dipstick 0.2mg/dL (0.2 mg/dL) Urine Leukocyte Esterase Negative (NEG) Urine RBC 0/HPF (0-2) Urine WBC 1-4/HPF (0-4) Urine Squamous Epithelial Cells Few/LPF Urine Bacteria 0/HPF (0-FEW) Glucose (Fingerstick) 451mg/dL (70-99) 360mg/dL (70-99) Test 05/14/16 03:00 05/14/16 07:34 05/14/16 08:45 05/14/16 10:13 Troponin I Quantitative 0.040ng/mL (0.000-0.055) 0.073ng/mL (0.000-0.055) Glucose (Fingerstick) 161mg/dL (70-99) 178mg/dL (70-99) White Blood Count 8.1x10^3/uL (4.0-11.0) Red Blood Count 4.57x10^6/uL (3.50-5.40) Hemoglobin 12.3g/dL (12.0-15.5) Hematocrit 36.2% (36.0-47.0) Mean Corpuscular Volume 79fL (79-100) Mean Corpuscular Hemoglobin 27pg (25-35) Mean Corpuscular Hemoglobin Concent 34g/dL (31-37) Red Cell Distribution Width 14.0% (11.5-14.5) Platelet Count 204x10^3/uL (140-400) Neutrophils (%) (Auto) 62% (31-73) Lymphocytes (%) (Auto) 29% (24-48) Monocytes (%) (Auto) 7% (0-9) Eosinophils (%) (Auto) 2% (0-3) Basophils (%) (Auto) 0% (0-3) Neutrophils # (Auto) 5.0x10^3uL (1.8-7.7) Lymphocytes # (Auto) 2.3x10^3/uL (1.0-4.8) Monocytes # (Auto) 0.6x10^3/uL (0.0-1.1) Eosinophils # (Auto) 0.2x10^3/uL (0.0-0.7) Basophils # (Auto) 0.0x10^3/uL (0.0-0.2) Sodium Level 142mmol/L (136-145) Potassium Level 3.8mmol/L (3.5-5.1) Chloride Level 101mmol/L (98-107) Carbon Dioxide Level 31mmol/L (21-32) Anion Gap 10 (6-14) Blood Urea Nitrogen 12mg/dL (7-20) Creatinine 0.8mg/dL (0.6-1.0) Estimated GFR (Cockcroft-Gault) 71.3 BUN/Creatinine Ratio 15 (6-20) Glucose Level 176mg/dL (70-99) Calcium Level 9.1mg/dL (8.5-10.1) Total Bilirubin 0.5mg/dL (0.2-1.0) Aspartate Amino Transf (AST/SGOT) 32U/L (15-37) Alanine Aminotransferase (ALT/SGPT) 38U/L (14-59) Alkaline Phosphatase 114U/L (46-116) Total Protein 6.8g/dL (6.4-8.2) Albumin 3.5g/dL (3.4-5.0) Albumin/Globulin Ratio 1.1 (1.0-1.7) Laboratory Tests Test 05/13/16 19:55 05/13/16 20:45 05/13/16 22:12 05/13/16 23:23 White Blood Count 7.2x10^3/uL (4.0-11.0) Red Blood Count 4.36x10^6/uL (3.50-5.40) Hemoglobin 12.1g/dL (12.0-15.5) Hematocrit 35.7% (36.0-47.0) Mean Corpuscular Volume 82fL (79-100) Mean Corpuscular Hemoglobin 28pg (25-35) Mean Corpuscular Hemoglobin Concent 34g/dL (31-37) Red Cell Distribution Width 14.1% (11.5-14.5) Platelet Count 232x10^3/uL (140-400) Neutrophils (%) (Auto) 56% (31-73) Lymphocytes (%) (Auto) 34% (24-48) Monocytes (%) (Auto) 7% (0-9) Eosinophils (%) (Auto) 2% (0-3) Basophils (%) (Auto) 0% (0-3) Neutrophils # (Auto) 4.0x10^3uL (1.8-7.7) Lymphocytes # (Auto) 2.5x10^3/uL (1.0-4.8) Monocytes # (Auto) 0.5x10^3/uL (0.0-1.1) Eosinophils # (Auto) 0.2x10^3/uL (0.0-0.7) Basophils # (Auto) 0.0x10^3/uL (0.0-0.2) Sodium Level 136mmol/L (136-145) Potassium Level 4.1mmol/L (3.5-5.1) Chloride Level 97mmol/L (98-107) Carbon Dioxide Level 30mmol/L (21-32) Anion Gap 9 (6-14) Blood Urea Nitrogen 17mg/dL (7-20) Creatinine 1.0mg/dL (0.6-1.0) Estimated GFR (Cockcroft-Gault) 55.1 BUN/Creatinine Ratio 17 (6-20) Glucose Level 514mg/dL (70-99) Calcium Level 9.1mg/dL (8.5-10.1) Total Bilirubin 0.3mg/dL (0.2-1.0) Aspartate Amino Transf (AST/SGOT) 35U/L (15-37) Alanine Aminotransferase (ALT/SGPT) 40U/L (14-59) Alkaline Phosphatase 116U/L (46-116) Troponin I Quantitative 0.044ng/mL (0.000-0.055) Total Protein 7.0g/dL (6.4-8.2) Albumin 3.1g/dL (3.4-5.0) Albumin/Globulin Ratio 0.8 (1.0-1.7) Urine Collection Type Unknown Urine Color Yellow Urine Clarity Clear Urine pH 6.0 Urine Specific [place] >=1.030 Urine Protein Negativemg/dL (NEG-TRACE) Urine Glucose (UA) >=1000mg/dL (NEG) Urine Ketones (Stick) Negativemg/dL (NEG) Urine Blood Negative (NEG) Urine Nitrite Negative (NEG) Urine Bilirubin Negative (NEG) Urine Urobilinogen Dipstick 0.2mg/dL (0.2 mg/dL) Urine Leukocyte Esterase Negative (NEG) Urine RBC 0/HPF (0-2) Urine WBC 1-4/HPF (0-4) Urine Squamous Epithelial Cells Few/LPF Urine Bacteria 0/HPF (0-FEW) Glucose (Fingerstick) 451mg/dL (70-99) 360mg/dL (70-99) Test 05/14/16 03:00 05/14/16 07:34 05/14/16 08:45 05/14/16 10:13 Troponin I Quantitative 0.040ng/mL (0.000-0.055) 0.073ng/mL (0.000-0.055) Glucose (Fingerstick) 161mg/dL (70-99) 178mg/dL (70-99) White Blood Count 8.1x10^3/uL (4.0-11.0) Red Blood Count 4.57x10^6/uL (3.50-5.40) Hemoglobin 12.3g/dL (12.0-15.5) Hematocrit 36.2% (36.0-47.0) Mean Corpuscular Volume 79fL (79-100) Mean Corpuscular Hemoglobin 27pg (25-35) Mean Corpuscular Hemoglobin Concent 34g/dL (31-37) Red Cell Distribution Width 14.0% (11.5-14.5) Platelet Count 204x10^3/uL (140-400) Neutrophils (%) (Auto) 62% (31-73) Lymphocytes (%) (Auto) 29% (24-48) Monocytes (%) (Auto) 7% (0-9) Eosinophils (%) (Auto) 2% (0-3) Basophils (%) (Auto) 0% (0-3) Neutrophils # (Auto) 5.0x10^3uL (1.8-7.7) Lymphocytes # (Auto) 2.3x10^3/uL (1.0-4.8) Monocytes # (Auto) 0.6x10^3/uL (0.0-1.1) Eosinophils # (Auto) 0.2x10^3/uL (0.0-0.7) Basophils # (Auto) 0.0x10^3/uL (0.0-0.2) Sodium Level 142mmol/L (136-145) Potassium Level 3.8mmol/L (3.5-5.1) Chloride Level 101mmol/L (98-107) Carbon Dioxide Level 31mmol/L (21-32) Anion Gap 10 (6-14) Blood Urea Nitrogen 12mg/dL (7-20) Creatinine 0.8mg/dL (0.6-1.0) Estimated GFR (Cockcroft-Gault) 71.3 BUN/Creatinine Ratio 15 (6-20) Glucose Level 176mg/dL (70-99) Calcium Level 9.1mg/dL (8.5-10.1) Total Bilirubin 0.5mg/dL (0.2-1.0) Aspartate Amino Transf (AST/SGOT) 32U/L (15-37) Alanine Aminotransferase (ALT/SGPT) 38U/L (14-59) Alkaline Phosphatase 114U/L (46-116) Total Protein 6.8g/dL (6.4-8.2) Albumin 3.5g/dL (3.4-5.0) Albumin/Globulin Ratio 1.1 (1.0-1.7) VTE Prophylaxis Ordered VTE Prophylaxis Devices: No VTE Pharmacological Prophylaxi: Yes Assessment/Plan Assessment/Plan 1. MIld trop elevation 2Depression NOS 3. CHronic back pain 4. Recent viral syndrome 5. HTN 6. DM 2 uncontrolled PLAN: Get cards, COnt home meds SIGNIF TIME 76 mins HOme when no further work up by cards SHE CONTINUES TO REFUSE PT/OT REHAB Dw pt and at bedside MYRIAM AMES MD May 14, 2016 13:24
[2016-05-14] MEDS: tiZANidine 4 MG TABLET. PO PRN ×2 (14:07→21:04)
--- NOTE | 2016-05-14 14:11 | PDOC2 ---
CARDIAC CONSULT DATE OF CONSULT Date of Consult DATE: 05/14/16 TIME: 13:49 REASON FOR CONSULT Reason for Consult: Troponin leak REFERRING PHYSICIAN Referring Physician: Betsy SOURCE Source: Chart review, Patient HISTORY OF PRESENT ILLNESS HISTORY OF PRESENT ILLNESS This is a pleasant 70 yo female admitted for complains of mainly left leg pain. She is blaming it on sciatica as she does have chronic pain. Upon further testing she has been noted with mild elevation in her troponin. She is chest pain free and no SOA. Prior to admission, at home, she was noted with possible delusion and confusion. She is forgetful and she admits it as her baseline. She believe she may have taken more xanax that usual mistaken it for her lortab which is double the dose. Her mental status is much better now. Also she has been having dizziness and nausea. She does suffer from IBS and has been having diarrhea lately. Denies any vomiting nor palpitations. Upon admission she was also noted with high BG. It is unclear if she may have missed her medications especially her insulin at time with her forgetfulness. Otherwise there is no immediate cardiac symptoms. PAST MEDICAL HISTORY Past Medical History Cardiovascular: CAD (Mild single vessel disease 09/23/2013 in LAD<20%), HTN, Hyperlipidemia, Other ([facility]) CENTRAL NERVOUS SYSTEM: CVA, Other ([facility] 2002) PULM: Pneumonia GI: GERD Heme/Onc: Anemia NOS Psych: Anxiety, Depression Musculoskeletal: low back pain, Osteoarthritis, Other (lumbar stenosis) Rheumatologic: Fibromyalgia Infectious disease: No pertinent hx ENT: No pertinent hx Renal/: No pertinent hx Endocrine: Diabetes (2) Dermatology: No pertinent hx PAST SURGICAL HISTORY Past Surgical History Pacemaker (Biotronik), Cataract Removal FAMILY HISTORY Family History noncontributory SOCIAL HISTORY Smoke: No ALCOHOL: none Drugs: None CURRENT MEDICATIONS CURRENT MEDICATIONS Current Medications Medications (Trade) Dose Ordered Sig/Marly Route PRN Reason Start Time Stop Time Status Last Admin Dose Admin Fentanyl Citrate 50 mcg 50 mcg PRN Q1HR PRN IV PAIN 05/13/16 21:00 05/14/16 09:10 DC 05/14/16 05:38 Sodium Chloride (Iv Sodium Chloride 0.9% 1000ml Bag) 1,000 ml @ 125 mls/hr Q8H IV 05/13/16 20:53 05/14/16 20:52 05/14/16 00:48 Insulin Human Regular (Novolin R Vial) 10 unit 1X ONCE SQ 05/13/16 21:15 05/13/16 21:16 DC 05/13/16 21:21 Fentanyl Citrate (Fentanyl 2ml Vial) 50 mcg PRN Q2HR PRN IV PAIN 05/14/16 09:07 05/14/16 10:27 Insulin Aspart (Novolog) 0-9 UNITS TIDWMEALS SQ 05/14/16 12:00 05/14/16 12:46 Labetalol HCl (Trandate) 100 mg BID PO 05/14/16 10:00 05/14/16 10:28 Insulin Aspart (Novolog) 20 units TIDAC SQ 05/14/16 11:30 05/14/16 12:44 ALLERGIES ALLERGIES: Coded Allergies: pramipexole (Verified Allergy, Severe, renal failure, 11/06/13) Sulfa (Sulfonamide Antibiotics) (Verified Allergy, Intermediate, 11/05/13) clavulanic acid (Verified Allergy, Intermediate, 06/03/14) ROS Review of System 14 point ROS evaluated with pertinent positives noted per HPI PHYSICAL EXAM General: Alert, Oriented X3, Cooperative, No acute distress HEENT: Atraumatic, Mucous membr. moist/pink Lungs: Clear to auscultation, Normal air movement Heart: Regular rate (SR LBBB/first degree AV block), Normal S1, Normal S2 Abdomen: Soft, No tenderness Extremities: No cyanosis, No edema Skin: No breakdown, No significant lesion Neuro: Normal speech, Sensation intact Psych/Mental Status: Mental status NL, Mood NL MUSCULOSKELETAL: Osteoarthritic changes both hands VITALS VITALS Vital Signs Date Time Temp Pulse Resp B/P Pulse Ox O2 Delivery O2 Flow Rate FiO2 05/14/16 11:07 97.7 79 18 120/61 95 Room Air 97.7 LABS Lab: Laboratory Tests Test 05/13/16 19:55 05/13/16 20:45 05/13/16 22:12 05/13/16 23:23 White Blood Count 7.2x10^3/uL (4.0-11.0) Red Blood Count 4.36x10^6/uL (3.50-5.40) Hemoglobin 12.1g/dL (12.0-15.5) Hematocrit 35.7% (36.0-47.0) Mean Corpuscular Volume 82fL (79-100) Mean Corpuscular Hemoglobin 28pg (25-35) Mean Corpuscular Hemoglobin Concent 34g/dL (31-37) Red Cell Distribution Width 14.1% (11.5-14.5) Platelet Count 232x10^3/uL (140-400) Neutrophils (%) (Auto) 56% (31-73) Lymphocytes (%) (Auto) 34% (24-48) Monocytes (%) (Auto) 7% (0-9) Eosinophils (%) (Auto) 2% (0-3) Basophils (%) (Auto) 0% (0-3) Neutrophils # (Auto) 4.0x10^3uL (1.8-7.7) Lymphocytes # (Auto) 2.5x10^3/uL (1.0-4.8) Monocytes # (Auto) 0.5x10^3/uL (0.0-1.1) Eosinophils # (Auto) 0.2x10^3/uL (0.0-0.7) Basophils # (Auto) 0.0x10^3/uL (0.0-0.2) Sodium Level 136mmol/L (136-145) Potassium Level 4.1mmol/L (3.5-5.1) Chloride Level 97mmol/L (98-107) Carbon Dioxide Level 30mmol/L (21-32) Anion Gap 9 (6-14) Blood Urea Nitrogen 17mg/dL (7-20) Creatinine 1.0mg/dL (0.6-1.0) Estimated GFR (Cockcroft-Gault) 55.1 BUN/Creatinine Ratio 17 (6-20) Glucose Level 514mg/dL (70-99) Calcium Level 9.1mg/dL (8.5-10.1) Total Bilirubin 0.3mg/dL (0.2-1.0) Aspartate Amino Transf (AST/SGOT) 35U/L (15-37) Alanine Aminotransferase (ALT/SGPT) 40U/L (14-59) Alkaline Phosphatase 116U/L (46-116) Troponin I Quantitative 0.044ng/mL (0.000-0.055) Total Protein 7.0g/dL (6.4-8.2) Albumin 3.1g/dL (3.4-5.0) Albumin/Globulin Ratio 0.8 (1.0-1.7) Urine Collection Type Unknown Urine Color Yellow Urine Clarity Clear Urine pH 6.0 Urine Specific [place] >=1.030 Urine Protein Negativemg/dL (NEG-TRACE) Urine Glucose (UA) >=1000mg/dL (NEG) Urine Ketones (Stick) Negativemg/dL (NEG) Urine Blood Negative (NEG) Urine Nitrite Negative (NEG) Urine Bilirubin Negative (NEG) Urine Urobilinogen Dipstick 0.2mg/dL (0.2 mg/dL) Urine Leukocyte Esterase Negative (NEG) Urine RBC 0/HPF (0-2) Urine WBC 1-4/HPF (0-4) Urine Squamous Epithelial Cells Few/LPF Urine Bacteria 0/HPF (0-FEW) Glucose (Fingerstick) 451mg/dL (70-99) 360mg/dL (70-99) Test 05/14/16 03:00 05/14/16 07:34 05/14/16 08:45 05/14/16 10:13 Troponin I Quantitative 0.040ng/mL (0.000-0.055) 0.073ng/mL (0.000-0.055) Glucose (Fingerstick) 161mg/dL (70-99) 178mg/dL (70-99) White Blood Count 8.1x10^3/uL (4.0-11.0) Red Blood Count 4.57x10^6/uL (3.50-5.40) Hemoglobin 12.3g/dL (12.0-15.5) Hematocrit 36.2% (36.0-47.0) Mean Corpuscular Volume 79fL (79-100) Mean Corpuscular Hemoglobin 27pg (25-35) Mean Corpuscular Hemoglobin Concent 34g/dL (31-37) Red Cell Distribution Width 14.0% (11.5-14.5) Platelet Count 204x10^3/uL (140-400) Neutrophils (%) (Auto) 62% (31-73) Lymphocytes (%) (Auto) 29% (24-48) Monocytes (%) (Auto) 7% (0-9) Eosinophils (%) (Auto) 2% (0-3) Basophils (%) (Auto) 0% (0-3) Neutrophils # (Auto) 5.0x10^3uL (1.8-7.7) Lymphocytes # (Auto) 2.3x10^3/uL (1.0-4.8) Monocytes # (Auto) 0.6x10^3/uL (0.0-1.1) Eosinophils # (Auto) 0.2x10^3/uL (0.0-0.7) Basophils # (Auto) 0.0x10^3/uL (0.0-0.2) Sodium Level 142mmol/L (136-145) Potassium Level 3.8mmol/L (3.5-5.1) Chloride Level 101mmol/L (98-107) Carbon Dioxide Level 31mmol/L (21-32) Anion Gap 10 (6-14) Blood Urea Nitrogen 12mg/dL (7-20) Creatinine 0.8mg/dL (0.6-1.0) Estimated GFR (Cockcroft-Gault) 71.3 BUN/Creatinine Ratio 15 (6-20) Glucose Level 176mg/dL (70-99) Calcium Level 9.1mg/dL (8.5-10.1) Total Bilirubin 0.5mg/dL (0.2-1.0) Aspartate Amino Transf (AST/SGOT) 32U/L (15-37) Alanine Aminotransferase (ALT/SGPT) 38U/L (14-59) Alkaline Phosphatase 114U/L (46-116) Total Protein 6.8g/dL (6.4-8.2) Albumin 3.5g/dL (3.4-5.0) Albumin/Globulin Ratio 1.1 (1.0-1.7) ECHOCARDIOGRAM ECHOCARDIOGRAM <Conclusion> The left ventricular systolic function is normal. The Ejection Fraction is estimated at 55-60%. There is normal LV segmental wall motion. The left atrium is mildly dilated. Transmitral Doppler flow pattern is Grade I-abnormal relaxation pattern. Mild mitral regurgitation. Trace to mild tricuspid regurgitation. The PA pressure was estimated at 31 mmHg. There is no evidence of significant pericardial effusion. DATE: 11/16/15 0704 STRESS TEST STRESS TEST Conclusion 1. Regadenoson cardioisotope stress test did not show any evidence of ischemia or infarct. 2. Abnormal septal wall motion secondary to LBBB with preserved ejection fraction calculated at 77%. 3. Low risk for cardiac events. DATE: 11/17/15 1434 HEART CATH HEART CATH <Conclusion> Mild single-vessel coronary artery disease Normal left ventricular end-diastolic pressure. DATE: 09/28/131958 ASSESSMENT/PLAN ASSESSMENT/PLAN 1. Elevated troponin: very mild elevation peaked at 0.07 likely from renal insufficiency/dehydration with significant hyperglycemia 500s. Hypoglycemic episodes? Doubt ACS. Recent MPI unremarkable for ischemia. 2. Encephalopathy vs dementia: possibly related to xanax (overusage?) and opioid use 3. Presyncope: likely from dehydration and benzos and opiods. 4. CAD: nonobstructive per [facility] 09/2013 20% to LAD. Continue secondary prevention. 5. SSS/CHB: PPM in situ 6. HTN/HLP 7. DM2: insulin dependent 8. Chronic low back pain: with lumbar stenosis, hx of back pain stimulator and chronic opioid use. Recommendation 1. Interrogate device to rule out any forms of significant arrhythmia 2. Orthostatic BP/HR 3. Continue with secondary prevention 4. Maintain IVF. 5. Cardiac testings are current. No further cardiac recommendations if interrogation is normal. Problems: SKY JOHNSTON APRN May 14, 2016 14:11
[2016-05-14] MEDS ORDERED: ALPRAZOLAM 0.5 MG TABLET PO PRN (18:15)
[2016-05-14] MEDS ORDERED: ALPRAZOLAM 1 MG TABLET PO PRN (18:15)
[2016-05-14] MEDS ORDERED: DULOXETINE HCL 30 MG CAPSULE.DR. PO SCH (21:00)
[2016-05-14] MEDS ORDERED: ATORVASTATIN CALCIUM 10 MG TABLET. PO SCH (21:00)
[2016-05-14] MEDS ORDERED: rOPINIRole 0.25 MG TABLET. PO SCH (21:00)
[2016-05-14] MEDS ORDERED: PANTOPRAZOLE 40 MG TABLET. PO SCH (21:00)
[2016-05-14] MEDS ORDERED: GABAPENTIN 300 MG CAPSULE. PO SCH (21:00)
[2016-05-14] MEDS ORDERED: INSULIN DETEMIR 300 UNITS/3 ML INSULN.PEN. SQ SCH (21:00)
[2016-05-15 03:00] VITALS: BP 140/61
[2016-05-15] MEDS: FENTANYL PF 100 MCG/2 ML VIAL. IV PRN ×2 (03:15→05:31)
[2016-05-15 07:00] VITALS: BP 138/72
[2016-05-15] MEDS: LABETALOL HCL 100 MG TABLET PO SCH (08:44)
[2016-05-15] MEDS: INSULIN ASPART 300 UNITS/3 ML INSULN.PEN SQ SCH ×4 (08:47→12:19)
[2016-05-15] MEDS ORDERED: buPROPion XL 150 MG TAB.ER.24H PO SCH (09:00)
[2016-05-15 10:52] VITALS: BP 147/65
--- NOTE | 2016-05-15 11:18 | PDOC ---
CARDIO Progress Notes Date and Time Date of Service 05/15/2016 Time of Evaluation 1010 Subjective Subjective: No Chest Pain, No shortness of breath, No Palpitations, No Dizziness Vitals Vitals Vital Signs Date Time Temp Pulse Resp B/P Pulse Ox O2 Delivery O2 Flow Rate FiO2 05/15/16 10:52 97.8 75 18 147/65 95 Room Air 97.8 Weight Weight [ ] Input and Output Intake and Output Intake and Output 05/15/16 07:00 Intake Total 1400 ml Balance 1400 ml Intake Oral 1400 ml # Voids 6 Laboratory Labs Laboratory Tests Test 05/14/16 16:03 05/14/16 20:57 05/15/16 06:58 05/15/16 10:14 Glucose (Fingerstick) 154mg/dL (70-99) 168mg/dL (70-99) 174mg/dL (70-99) 140mg/dL (70-99) Physical Exam HEENT: Neck Supple W Full Motion Chest: Symmetric LUNGS: Clear to Auscultation Heart: S1S2, RRR Abdomen: Soft N/T Extremities: No Calf Tenderness Neurology: alert, oriented, follow commands Assessment Assessment 1. Elevated troponin: very mild elevation peaked at 0.07. doubt ACS. demand mediated. 2. Presyncope: no further dizziness after hydration. No orthostasis/arrhythmias 3. CAD: nonobstructive per [facility] 09/2013 20% to LAD. Continue secondary prevention. 4. SSS/CHB: PPM in situ, normal functioning device 6. HTN/HLP 7. DM2: insulin dependent 8. Chronic low back pain: with lumbar stenosis, hx of back pain stimulator and chronic opioid use. Recommendation 1. Follow up in office as scheduled 2. Continue with secondary prevention 3. Cardiac testings are current. No further cardiac recommendations. SKY JOHNSTON APRN May 15, 2016 11:18
--- NOTE | 2016-05-15 12:29 | PDOC3 ---
Discharge Summary Visit Information Date of Admission: May 13, 2016 Date of Discharge: May 15, 2016 Admitting Diagnosis Comment: 1. MIld trop elevation 2Depression NOS 3. CHronic back pain 4. Recent viral syndrome 5. HTN 6. DM 2 uncontrolled Final Diagnosis Problems Medical Problems: (1) Dizziness Status: Acute (2) Generalized weakness Status: Acute (3) Hyperglycemia Status: Acute (4) Left leg pain Status: Acute Brief Hospital Course Allergies Allergies Coded Allergies Type Severity Reaction Last Updated Verified pramipexole Allergy Severe renal failure 11/06/13 Yes Sulfa (Sulfonamide Antibiotics) Allergy Intermediate 11/05/13 Yes clavulanic acid Allergy Intermediate 06/03/14 Yes Vital Signs Vital Signs Date Time Temp Pulse Resp B/P Pulse Ox O2 Delivery O2 Flow Rate FiO2 05/15/16 10:52 97.8 75 18 147/65 95 Room Air 97.8 Lab Results Laboratory Tests Test 05/13/16 19:55 05/13/16 20:45 05/13/16 22:12 05/13/16 23:23 White Blood Count 7.2x10^3/uL (4.0-11.0) Red Blood Count 4.36x10^6/uL (3.50-5.40) Hemoglobin 12.1g/dL (12.0-15.5) Hematocrit 35.7% (36.0-47.0) Mean Corpuscular Volume 82fL (79-100) Mean Corpuscular Hemoglobin 28pg (25-35) Mean Corpuscular Hemoglobin Concent 34g/dL (31-37) Red Cell Distribution Width 14.1% (11.5-14.5) Platelet Count 232x10^3/uL (140-400) Neutrophils (%) (Auto) 56% (31-73) Lymphocytes (%) (Auto) 34% (24-48) Monocytes (%) (Auto) 7% (0-9) Eosinophils (%) (Auto) 2% (0-3) Basophils (%) (Auto) 0% (0-3) Neutrophils # (Auto) 4.0x10^3uL (1.8-7.7) Lymphocytes # (Auto) 2.5x10^3/uL (1.0-4.8) Monocytes # (Auto) 0.5x10^3/uL (0.0-1.1) Eosinophils # (Auto) 0.2x10^3/uL (0.0-0.7) Basophils # (Auto) 0.0x10^3/uL (0.0-0.2) Sodium Level 136mmol/L (136-145) Potassium Level 4.1mmol/L (3.5-5.1) Chloride Level 97mmol/L (98-107) Carbon Dioxide Level 30mmol/L (21-32) Anion Gap 9 (6-14) Blood Urea Nitrogen 17mg/dL (7-20) Creatinine 1.0mg/dL (0.6-1.0) Estimated GFR (Cockcroft-Gault) 55.1 BUN/Creatinine Ratio 17 (6-20) Glucose Level 514mg/dL (70-99) Calcium Level 9.1mg/dL (8.5-10.1) Total Bilirubin 0.3mg/dL (0.2-1.0) Aspartate Amino Transf (AST/SGOT) 35U/L (15-37) Alanine Aminotransferase (ALT/SGPT) 40U/L (14-59) Alkaline Phosphatase 116U/L (46-116) Troponin I Quantitative 0.044ng/mL (0.000-0.055) Total Protein 7.0g/dL (6.4-8.2) Albumin 3.1g/dL (3.4-5.0) Albumin/Globulin Ratio 0.8 (1.0-1.7) Urine Collection Type Unknown Urine Color Yellow Urine Clarity Clear Urine pH 6.0 Urine Specific [place] >=1.030 Urine Protein Negativemg/dL (NEG-TRACE) Urine Glucose (UA) >=1000mg/dL (NEG) Urine Ketones (Stick) Negativemg/dL (NEG) Urine Blood Negative (NEG) Urine Nitrite Negative (NEG) Urine Bilirubin Negative (NEG) Urine Urobilinogen Dipstick 0.2mg/dL (0.2 mg/dL) Urine Leukocyte Esterase Negative (NEG) Urine RBC 0/HPF (0-2) Urine WBC 1-4/HPF (0-4) Urine Squamous Epithelial Cells Few/LPF Urine Bacteria 0/HPF (0-FEW) Glucose (Fingerstick) 451mg/dL (70-99) 360mg/dL (70-99) Test 05/14/16 03:00 05/14/16 07:34 05/14/16 08:45 05/14/16 10:13 Troponin I Quantitative 0.040ng/mL (0.000-0.055) 0.073ng/mL (0.000-0.055) Glucose (Fingerstick) 161mg/dL (70-99) 178mg/dL (70-99) White Blood Count 8.1x10^3/uL (4.0-11.0) Red Blood Count 4.57x10^6/uL (3.50-5.40) Hemoglobin 12.3g/dL (12.0-15.5) Hematocrit 36.2% (36.0-47.0) Mean Corpuscular Volume 79fL (79-100) Mean Corpuscular Hemoglobin 27pg (25-35) Mean Corpuscular Hemoglobin Concent 34g/dL (31-37) Red Cell Distribution Width 14.0% (11.5-14.5) Platelet Count 204x10^3/uL (140-400) Neutrophils (%) (Auto) 62% (31-73) Lymphocytes (%) (Auto) 29% (24-48) Monocytes (%) (Auto) 7% (0-9) Eosinophils (%) (Auto) 2% (0-3) Basophils (%) (Auto) 0% (0-3) Neutrophils # (Auto) 5.0x10^3uL (1.8-7.7) Lymphocytes # (Auto) 2.3x10^3/uL (1.0-4.8) Monocytes # (Auto) 0.6x10^3/uL (0.0-1.1) Eosinophils # (Auto) 0.2x10^3/uL (0.0-0.7) Basophils # (Auto) 0.0x10^3/uL (0.0-0.2) Sodium Level 142mmol/L (136-145) Potassium Level 3.8mmol/L (3.5-5.1) Chloride Level 101mmol/L (98-107) Carbon Dioxide Level 31mmol/L (21-32) Anion Gap 10 (6-14) Blood Urea Nitrogen 12mg/dL (7-20) Creatinine 0.8mg/dL (0.6-1.0) Estimated GFR (Cockcroft-Gault) 71.3 BUN/Creatinine Ratio 15 (6-20) Glucose Level 176mg/dL (70-99) Calcium Level 9.1mg/dL (8.5-10.1) Total Bilirubin 0.5mg/dL (0.2-1.0) Aspartate Amino Transf (AST/SGOT) 32U/L (15-37) Alanine Aminotransferase (ALT/SGPT) 38U/L (14-59) Alkaline Phosphatase 114U/L (46-116) Total Protein 6.8g/dL (6.4-8.2) Albumin 3.5g/dL (3.4-5.0) Albumin/Globulin Ratio 1.1 (1.0-1.7) Test 05/14/16 16:03 05/14/16 20:57 05/15/16 06:58 05/15/16 10:14 Glucose (Fingerstick) 154mg/dL (70-99) 168mg/dL (70-99) 174mg/dL (70-99) 140mg/dL (70-99) Laboratory Tests Test 05/14/16 16:03 05/14/16 20:57 05/15/16 06:58 05/15/16 10:14 Glucose (Fingerstick) 154mg/dL (70-99) 168mg/dL (70-99) 174mg/dL (70-99) 140mg/dL (70-99) Brief Hospital Course Ms. Nicolas is a 70 old [sex] who presented with Pt known to me, I just dec 1 -2 weeks ago for: Date of Admission: May 03, 2016 Date of Discharge: May 05, 2016 Admitting Diagnosis Comment: Assessment/Plan 1. Presumed CAP 2. Acute hypoxic respi failure 3. CHropnic lumbago 4. GIORGIO, vasomotor 5. Mod PCM 6. HTN 7. DM 2 uncontrolled - got steroids She comes in today bec of confusion, is retired and stays with her at home, thoughts of maybe taking too much pain meds or xanax., Known to Nelly Molina for multiple back sxs and also Dr. Patti dimas, for chronic pain has back stimulator. Unfortunately this lady has always been in pain for her life mostly that it is taking a toll on her mental health, SIgnif time today, at least 76 mins cumulative, 45 mins maybe in room, discussed about chronic pain, ADRI and seeing a psychiatrist,S he does, On welbutrin for 1 yr now and un recalled antidepressant for many yrs, Talked about revisiting psychiatrist, developing tolerance etc,' LAbs ok, CXR and cT vhead normal, only abnormal is second trop 0.7 known to Paulo bosch, She complains of non specific CP, cough, abd pain, multiple somatic complaints but recent work up including MPI is neg, Just saw cards 1 week ago in office. SHe is working with the back stimulator Nagi to adjust some settings Discharge Information Condition at Discharge: Improved, Stable Disposition/Orders: D/C to Home Scheduled Atorvastatin Calcium (Atorvastatin Calcium) 10 MG PO HS (Reported) Bupropion Hcl (Bupropion Xl) 2 TAB PO DAILY (Reported) Cholecalciferol (Vitamin D3) (Vitamin D) 50,000 UNIT PO QSU (Reported) Dulaglutide (Trulicity) 1.5 MG SQ QSU (Reported) Duloxetine Hcl (Cymbalta) 60 MG PO QHS (Reported) Gabapentin (Gabapentin) 300 MG PO QHS (Reported) Insulin Aspart (Novolog) 20 UNIT SQ TIDAC (Reported) Insulin Detemir (Levemir) 60 UNITS SQ QHS (Reported) Labetalol Hcl (Labetalol Hcl) 0.5 TAB PO BID (Reported) Levofloxacin (Levaquin) 1 TAB PO DAILY Pantoprazole Sodium (Pantoprazole Sodium) 1 TAB PO QHS (Reported) Ropinirole Hcl (Requip) 1 TAB PO QHS (Reported) Scheduled PRN Alprazolam (Alprazolam) 0.5-1 TAB PO PRN BID PRN PRN ANXIETY / AGITATION ( Reported) Hydrocodone/Apap 5-325 (Lewis 5-325 Tablet) 1 TAB PO PRN Q4HRS PRN PRN BREAKTHROUGH PAIN (Reported) Meclizine Hcl (Meclizine Hcl) 0.5-1 TAB PO PRN TID PRN PRN DIZZINESS (Reported) Temazepam (Temazepam) 30 MG PO HS PRN PRN INSOMNIA (Reported) Tizanidine Hcl (Zanaflex) 1-2 TAB PO PRN TID PRN PRN MUSCLE SPASMS (Reported) Discontinued Medications Cholestyramine (With Sugar) (Cholestyramine Packet) 4 GM PO PRN DAILY PRN PRN STOMACH CRAMPING (Reported) MYRIAM MAES MD May 15, 2016 12:29
[2016-05-20] MEDS ORDERED: ERGOCALCIFEROL (VITAMIN D2) 50,000 UNIT CAPSULE PO SCH (16:00)
[2016-05-20] MEDS ORDERED: NON FORMULARY ITEM (Dulaglutide (Trulicity) 1.5 MG) SQ SCH (16:00)
== END 2016-05-15 13:50 | disposition home or self-care (01) | DRG 865 ==
LOC: ER 19:20 → 5 SOUTH 20:56
PROVIDERS: ADMIT Internal Medicine Hematology & Oncology; ATTEND Internal Medicine Hematology & Oncology
DX: B34.9 Viral infection, unspecified (principal); G93.41 Metabolic encephalopathy; I44.2 Atrioventricular block, complete; E44.0 Moderate protein-calorie malnutrition; I25.10 Atherosclerotic heart disease of native coronary artery without angina pectoris; E78.5 Hyperlipidemia, unspecified; I11.9 Hypertensive heart disease without heart failure; M79.7 Fibromyalgia; K21.9 Gastro-esophageal reflux disease without esophagitis; F41.9 Anxiety disorder, unspecified; F32.9 Major depressive disorder, single episode, unspecified; E11.65 Type 2 diabetes mellitus with hyperglycemia; I49.5 Sick sinus syndrome; M48.06 Spinal stenosis, lumbar region; G89.29 Other chronic pain; M54.30 Sciatica, unspecified side; E86.0 Dehydration; K58.0 Irritable bowel syndrome with diarrhea; M19.90 Unspecified osteoarthritis, unspecified site; Z88.1 Allergy status to other antibiotic agents; Z86.73 Personal history of transient ischemic attack (TIA), and cerebral infarction without residual deficits; Z79.891 Long term (current) use of opiate analgesic; Z95.0 Presence of cardiac pacemaker; Z83.3 Family history of diabetes mellitus; Z82.49 Family history of ischemic heart disease and other diseases of the circulatory system; Z98.49 Cataract extraction status, unspecified eye; Z79.4 Long term (current) use of insulin; Z79.82 Long term (current) use of aspirin; Z79.899 Other long term (current) drug therapy; Z88.2 Allergy status to sulfonamides; Z88.8 Allergy status to other drugs, medicaments and biological substances; Z68.34 Body mass index [BMI] 34.0-34.9, adult; J20.9 Acute bronchitis, unspecified; T40.605A Adverse effect of unspecified narcotics, initial encounter
CPT/HCPCS: 36415; 70450; 71010; 80053; 81001; 82947; 84484; 85027; 93005; 96372; 96374; J1815; J3010; J7030; 99285-25

== ENCOUNTER → 2016-09-03 | Outpatient (CLI) | payer MEDICARE ==
[~2016-09-03] MED LIST changes: +ASPI-612 PO; -ASPI81TA9 PO; +DOCU-109 PO; -DOCU-27 PO; +ESTR-9 TD; -ESTR1PAT68 TD; -HYDR-2666 PO; +HYDR-2758 PO; -INSU100V10 IJ; +INSU100V11 IJ; -LEVO500T38 PO; +LEVO500T59 PO; -MELO-150 PO; -MELO-156 PO; +MELO15TA23 PO; +MELO7.5T29 PO; +TRAZ150T49 PO; -TRAZ150T55 PO; -ZOLP5TAB4 PO; +ZOLP5TAB5 PO
[2016-09-03 16:02] LABS: ALBUMIN 3.5 g/dL (3.4-5.0); ALBUMIN/GLOBULIN RATIO 0.9 (1.0-1.7); CALCIUM 8.9 mg/dL (8.5-10.1); CREATININE 0.9 mg/dL (0.6-1.0); GFR 62.3; POTASSIUM 4.3 mmol/L (3.5-5.1); TOTAL BILIRUBIN 0.2 mg/dL (0.2-1.0); TOTAL PROTEIN 7.6 g/dL (6.4-8.2)
[2016-09-03 16:06] LABS: CHOLESTEROL/HDL RATIO 4.5
[2016-09-04 02:12] LABS: VITAMIN D25(OH)TOTAL 23.1 ng/mL (30.0-100.0)
== END | disposition home or self-care (01) ==
LOC: LAB 14:53
PROVIDERS: ATTEND Internal Medicine
DX: E11.9 Type 2 diabetes mellitus without complications (principal); E78.5 Hyperlipidemia, unspecified; E55.9 Vitamin D deficiency, unspecified; E04.2 Nontoxic multinodular goiter
CPT/HCPCS: 36415; 80053; 80061; 82043; 82306; 83036; 84443

== ENCOUNTER → 2016-11-27 | Outpatient (CLI) | payer MEDICARE ==
[2016-11-27 17:11] LABS: BASO % 0 % (0-3); EOS % 3 % (0-3); HEMATOCRIT 35.5 % (36.0-47.0); HEMOGLOBIN 11.5 g/dL (12.0-15.5); LYMPH # 2.3 x10^3/uL (1.0-4.8); LYMPH % 33 % (24-48); MEAN CORPUSCULAR HEMOGLOBIN 26 pg (25-35); MEAN CORPUSCULAR HGB CONC 33 g/dL (31-37); MEAN CORPUSCULAR VOLUME 79 fL (79-100); MONO % 8 % (0-9); NEUT % 57 % (31-73); PLATELET COUNT 212 x10^3/uL (140-400); RED BLOOD COUNT 4.49 x10^6/uL (3.50-5.40); RED CELL DISTRIBUTION WIDTH 15.6 % (11.5-14.5); WHITE BLOOD COUNT 7.2 x10^3/uL (4.0-11.0)
== END | disposition home or self-care (01) ==
LOC: LAB 16:23
PROVIDERS: ATTEND Internal Medicine
DX: E11.9 Type 2 diabetes mellitus without complications (principal); D64.9 Anemia, unspecified
CPT/HCPCS: 36415; 82607; 82728; 83036; 83921; 85025

== ENCOUNTER 2016-12-25 02:36 | Emergency (ER) | payer MEDICARE ==
[~2016-12-25] VITALS: Ht 160 cm; Wt 90.7 kg
[2016-12-25 02:45] VITALS: BP 102/50
--- NOTE | 2016-12-25 03:07 | PHYS DOC ---
Past Medical History Past Medical History: Anxiety, CAD, CVA, Depression, Diabetes-Type II, Fibromyalgia, High Cholesterol, Hypertension, Other Additional Past Medical Histor: neuropathy, cataracts, subarachnoid hemorrhage( 2002) Past Surgical History: Appendectomy, Cholecystectomy, Hysterectomy, Pacemaker, Other Additional Past Surgical Histo: cardiac cath, cataract removal, permanent pacemaker Additional Information: NON SMOKER Alcohol Use: None Drug Use: None Adult General Chief Complaint Chief Complaint: MULTIPLE COMPLAINTS HPI HPI Patient is a 71 year old FEMALE who presents with left leg pain and swelling. She has neuropathy but noticed that her left leg was swollen and more painful than usual. Started today. Took hydrocodone with no relief. No SOA, no chest pain, no fever, no travel. She was recently diagnosed with a UTI last week and is on Amoxicillin. Review of Systems Review of Systems Constitutional: Denies fever or chills Eyes: Denies change in visual acuity, redness, or eye pain HENT: Denies nasal congestion or sore throat Respiratory: Denies cough or shortness of breath Cardiovascular: No chest pain GI: Denies abdominal pain, nausea, vomiting, bloody stools or diarrhea : CURRENT UTI Musculoskeletal: Denies back pain. POS left leg pain Integument: Denies rash or skin lesions Neurologic: Denies headache, focal weakness or sensory changes Current Medications Current Medications Current Medications Medications (Trade) Dose Ordered Sig/Marly Start Time Stop Time Status Last Admin Dose Admin Morphine Sulfate 2 mg 1X ONCE 12/25/16 03:30 12/25/16 03:31 DC 12/25/16 03:37 2 MG Promethazine HCl (Phenergan Im) 12.5 mg 1X ONCE 12/25/16 03:30 12/25/16 03:31 DC 12/25/16 03:37 12.5 MG Allergies Allergies Allergies Coded Allergies Type Severity Reaction Last Updated Verified pramipexole Allergy Severe renal failure 11/06/13 Yes Sulfa (Sulfonamide Antibiotics) Allergy Intermediate 11/05/13 Yes clavulanic acid Allergy Intermediate 06/03/14 Yes Physical Exam Physical Exam Constitutional: Well developed, well nourished, no acute distress, non-toxic appearance. HENT: Normocephalic, atraumatic, bilateral external ears normal, oropharynx moist, no oral exudates, nose normal. Eyes: PERRLA, EOMI, conjunctiva normal, no discharge. Neck: Normal range of motion, no tenderness, supple, no stridor. Cardiovascular:Heart rate regular rhythm, no murmur Lungs & Thorax: Bilateral breath sounds clear to auscultation Abdomen: Bowel sounds normal, soft, no tenderness, no masses, no pulsatile masses. Skin: Warm, dry, no erythema, no rash. Back: No tenderness, no CVA tenderness. Extremities: Left leg: painful to palpation of the leg; diffuse swelling and pedal edema. NVI distally. Normal cap refill. No cyanosis. Right leg without swelling; no calf pain. Neurologic: Alert and oriented X 3, normal motor function, normal sensory function, no focal deficits noted. Psychologic: Affect normal, judgement normal, mood normal. Current Patient Data Vital Signs Vital Signs Date Time Temp Pulse Resp B/P (MAP) Pulse Ox O2 Delivery O2 Flow Rate FiO2 12/25/16 03:37 22 99 Room Air 12/25/16 02:45 98.5 92 98.5 Radiology/Procedures Radiology/Procedures Verbal report on US: negative for DVT. Course & Med Decision Making Course & Med Decision Making Evaluated patient. Dosed here with morphine IM. US ordered to r/o DVT. At 0320 AM: US at bedside. At 0345 AM: Neg for DVT. Home to f/u w PCP. I have spoken with the patient and/or caregivers. I have explained the patient' s condition, diagnosis and treatment plan based on the information available to me at this time. I have answered the patient's and/or caregiver's questions and addressed any concerns. The patient and/or caregivers have as good an understanding of the patient's diagnosis, condition and treatment plan as can be expected at this point. The patient's condition is stable and appropriate for discharge from the emergency department. The patient will pursue further outpatient evaluation with the primary care physician or other designated or consulting physician as outlined in the discharge instructions. The patient and/or caregivers are agreeable to this plan of care and follow-up instructions have been explained in detail. The patient and/or caregivers have received these instructions in written format and have expressed an understanding of the discharge instructions. The patient and/or caregivers are aware that any significant change in condition or worsening of symptoms should prompt an immediate return to this or the closest emergency department or a call to 911. Fred Disclaimer Fred Disclaimer This electronic medical record was generated, in whole or in part, using a voice recognition dictation system. Departure Departure Impression: Primary Impression: Left leg pain Additional Impression: Neuropathy Disposition: 01 HOME, SELF-CARE Condition: STABLE Referrals: LO LEDESMA MD (PCP) Patient Instructions: Pain, Neuropathic Problem Qualifiers MANSI HENRY MD Dec 25, 2016 03:07
[2016-12-25] MEDS ORDERED: MORPHINE SULFATE 2 MG/ML DISP.SYRIN. IM ONE (03:30)
[2016-12-25] MEDS ORDERED: PROMETHAZINE IM 25 MG/ML VIAL IM ONE (03:30)
--- NOTE | 2016-12-25 04:03 | RAD ---
INDICATION: Left leg pain and swelling COMPARISON: None. TECHNIQUE: Grayscale, color and doppler ultrasound images were obtained of the left lower extremity venous vasculature. LEFT: No thrombus identified in the common femoral vein, femoral vein, popliteal vein or visualized calf veins. There is some edema in soft tissues. IMPRESSION: 1. No thrombus identified in deep venous system of the left lower extremity. Electronically signed by: Tony Dinero MD (12/25/2016 4:00 AM) [id number]
== END 2016-12-25 04:25 | disposition home or self-care (01) ==
LOC: ER 02:36
DX: M79.605 Pain in left leg (principal); E11.40 Type 2 diabetes mellitus with diabetic neuropathy, unspecified; G62.9 Polyneuropathy, unspecified; I25.10 Atherosclerotic heart disease of native coronary artery without angina pectoris; E78.00 Pure hypercholesterolemia, unspecified; I10 Essential (primary) hypertension; M79.7 Fibromyalgia; Z86.73 Personal history of transient ischemic attack (TIA), and cerebral infarction without residual deficits; Z95.0 Presence of cardiac pacemaker; Z88.2 Allergy status to sulfonamides; Z88.8 Allergy status to other drugs, medicaments and biological substances
CPT/HCPCS: 93971; 96372; 99284; J2270; J2550

== ENCOUNTER → 2017-02-13 | Day surgery (SDC) | payer MEDICARE ==
[~2017-02-13] MED LIST changes: +BUPR300T4 PO; +CIPR500T94 PO; +DULO30CA2 PO; +GABA-586 PO; +GABA600T2 PO; +GEMF600T3 PO; +HYDROmorphone 2 MG/ML VIAL IV PRN; +INSU100I17 SQ; +INSU100I27 SQ; +INSULIN ASPART 100 UNIT/ML 10ML VIAL. SQ ONE; +INSULIN ASPART 300 UNITS/3 ML INSULN.PEN SQ SCH; +IV RINGERS,LACTATED 1000ML 1,000 ML IV SCH; +LABETALOL 20 MG/4 ML DISP.SYRIN. ONE; +LACT1CAP6 PO; +LIDOCAINE 1% PF 2 ML VIAL. ID PRN; +LIDOCAINE 2% PF Vial for OR 5 ML VIAL. ONE; +LOPE2CAP88 PO; -METO100T2 PO; +METO100T7 PO; +METR500T PO; +MIDAZOLAM HCL/PF 2 MG/2 ML VIAL. IV PRN; +MIRT15TA3 PO; +MORPHINE SULFATE 2 MG/ML DISP.SYRIN. IV PRN; +NAPR-683 PO; -NAPR500T PO; +PROCHLORPERAZINE 10 MG/2 ML VIAL. IV PRN; +PROPOFOL 20 ML IV ONE; +fentaNYL PF VIAL 100 MCG/2 ML VIAL IV PRN
[2017-02-13 09:06] VITALS: BP 129/70
--- NOTE | 2017-02-13 21:02 | HP ---
ADMIT DATE: 02/13/2017 REASON FOR CONSULTATION: Right upper quadrant abdominal pain and diarrhea, status post cholecystectomy. HISTORY OF PRESENT ILLNESS: A 71-year-old female with past medical history significant for hyperlipidemia, chronic back pain, diabetes mellitus and hypertension, is seen for persistent diarrhea and right upper quadrant pain. It is worse postprandially. Hemoglobin in the past has been 12.7. She denies any melena and/or hematochezia. States she has up to 10 loose stools daily. With continued symptoms, consultation and further evaluation is requested. PAST MEDICAL HISTORY: Hyperlipidemia, diabetes, hypertension and chronic back pain. PAST SURGICAL HISTORY: Pacemaker, cataract removal, back surgery and CABG. ALLERGIES: SULFA, CLAVULANIC ACID AND PRAMIPEXOLE. MEDICATIONS: Include alprazolam; atorvastatin; vitamin D; Cipro; Cymbalta; gabapentin; gemfibrozil; insulin; labetalol; loperamide; metronidazole; mirtazapine; Protonix; Requip; temazepam and tizanidine, Zanaflex. FAMILY HISTORY: Does not drink or smoke. She is retired. REVIEW OF SYSTEMS: As per records. PHYSICAL EXAMINATION: GENERAL: A well-nourished and well-developed female. VITAL SIGNS: Temp is 97.2, pulse is 90, respiratory rate is 20 and blood pressure is 200/110. HEENT: Normocephalic and atraumatic head. Pupils and extraocular muscles are not tested. Sclerae anicteric. NECK: Supple. LUNGS: Clear. CARDIOVASCULAR: Reveals an S1, S2 without S3, S4 or appreciable murmur. Pacemaker is noted. ABDOMEN: Reveals soft abdomen. Normal bowel sounds without appreciable hepatosplenomegaly. Right upper quadrant tenderness to deep palpation. EXTREMITIES: No cyanosis, clubbing or edema. IMPRESSION: Diarrhea. Right upper quadrant abdominal pain, status post cholecystectomy. Etiology is to be determined. Differential includes celiac disease, collagenous colitis, colon cancer, inflammatory bowel disease. Therefore, recommend EGD and colonoscopy to further assess. Risks and benefits of procedure were discussed with the patient including risk of perforation. She is willing to proceed. GARFIELD GONSALES MD DR: FRANCO/antonio JOB#: [id number] / [id number]
--- NOTE | 2017-02-14 13:44 | PATHOLOGY ---
PATHOLOGY REPORT * * * * * * * * FINAL DIAGNOSIS: Colonic mucosa, random colon biopsies: - No significant pathologic abnormalities. COMMENT: Sections of the random colon biopsy reveal multiple segments of colonic mucosa containing several mucosal-associated lymphoid aggregates. There are foci of nuclear karyorrhexis within the superficial lamina propria which are consistent with bowel prep effect. There is no evidence of a chronic destructive colitis, lymphocytic colitis, or collagenous colitis. (JPM:mgr; 02/14/2017) REPORT ELECTRONICALLY SIGNED BY: Hayden Boyd M.D. DATE/TIME: 02/14/2017 13:41 * * * * * * * * GROSS PATHOLOGY: Received in formalin labeled "Giorgio Nicolas, random colon BX," are multiple (more than 10) segments of taylor soft tissue measuring 2.1 x 0.8 x 0.3 cm in aggregate dimensions and ranging from 0.2 to 0.3 cm in maximum dimension. The specimen is submitted entirely in cassette A1. (TSD; 02/13/2017) INITIAL CPT CODE(S): A; 28966 Professional services performed [place] [address] Technical services performed by [facility] at [address] [place] [address]. SPECIMEN(S) RECEIVED: A.Random colon biopsy CLINICAL HISTORY: Diarrhea, RUQ pain PATIENT: GIORGIO NICOLAS /AGE: 6 1945 (Age: 71) PATIENT #: [id number] ALT CASE #: SPECIMEN COLLECTION DATE: 02/13/2017 SPECIMEN RECEIVED DATE: 02/13/2017 [facility] - [address] [place] [address] - PHONE: [phone] * * * END OF REPORT * * *
== END | disposition home or self-care (01) ==
LOC: ENDOS 06:53
PROVIDERS: ATTEND Internal Medicine Gastroenterology
DX: K64.0 First degree hemorrhoids (principal); K52.9 Noninfective gastroenteritis and colitis, unspecified; I25.10 Atherosclerotic heart disease of native coronary artery without angina pectoris; E78.00 Pure hypercholesterolemia, unspecified; I10 Essential (primary) hypertension; E66.9 Obesity, unspecified; F41.9 Anxiety disorder, unspecified; F32.9 Major depressive disorder, single episode, unspecified; Z87.01 Personal history of pneumonia (recurrent); Z86.69 Personal history of other diseases of the nervous system and sense organs; Z90.49 Acquired absence of other specified parts of digestive tract; Z87.440 Personal history of urinary (tract) infections; Z98.890 Other specified postprocedural states; Z72.89 Other problems related to lifestyle; Z88.2 Allergy status to sulfonamides; Z88.8 Allergy status to other drugs, medicaments and biological substances
CPT/HCPCS: 43235; 45380; 82962; 88305; J1815; J2704; J3490; J2001

== ENCOUNTER → 2017-08-29 | Outpatient (CLI) | payer MEDICARE ==
[2017-08-29 15:13] LABS: ANION GAP 7 (6-14); BLOOD UREA NITROGEN 12 mg/dL (7-20); CALCIUM 8.8 mg/dL (8.5-10.1); CARBON DIOXIDE 33 mmol/L (21-32); CHLORIDE 94 mmol/L (98-107); CREATININE 1.3 mg/dL (0.6-1.0); GFR 40.6; GLUCOSE 471 mg/dL (70-99); MAGNESIUM 1.6 mg/dL (1.8-2.4); SODIUM 134 mmol/L (136-145)
== END | disposition home or self-care (01) ==
LOC: LAB 14:41
DX: I10 Essential (primary) hypertension (principal); E11.9 Type 2 diabetes mellitus without complications; G25.81 Restless legs syndrome
CPT/HCPCS: 36415; 80048; 83735

== ENCOUNTER → 2017-09-06 | Outpatient (CLI) | payer MEDICARE | END | disposition home or self-care (01) | LOC: ECHO 07:53 | DX: I36.1 Nonrheumatic tricuspid (valve) insufficiency (principal); I11.9 Hypertensive heart disease without heart failure | CPT/HCPCS: 93306 ==

== ENCOUNTER → 2017-09-23 | Outpatient (CLI) | payer MEDICARE ==
[2017-09-23] MEDS: REGADENOSON 0.4 MG/5 ML DISP.SYRIN. IV (11:50)
== END | disposition home or self-care (01) ==
LOC: NM 11:51
DX: R06.09 Other forms of dyspnea (principal); E55.9 Vitamin D deficiency, unspecified; I11.0 Hypertensive heart disease with heart failure; I50.9 Heart failure, unspecified; E11.9 Type 2 diabetes mellitus without complications; E78.5 Hyperlipidemia, unspecified; E78.00 Pure hypercholesterolemia, unspecified; E03.9 Hypothyroidism, unspecified; K21.9 Gastro-esophageal reflux disease without esophagitis
CPT/HCPCS: 78452; 93017; 96374; 96375; 96376; A9500; J2785

== ENCOUNTER → 2017-10-24 | Outpatient (CLI) | payer MEDICARE ==
[2017-10-24 09:59] LABS: ALBUMIN 3.3 g/dL (3.4-5.0); ALBUMIN/GLOBULIN RATIO 0.8 (1.0-1.7); ALK PHOS 122 U/L (46-116); ALT (SGPT) 32 U/L (14-59); ANION GAP 7 (6-14); AST (SGOT) 23 U/L (15-37); BLOOD UREA NITROGEN 14 mg/dL (7-20); BUN/CREATININE RATIO 13 (6-20); CALCIUM 9.1 mg/dL (8.5-10.1); CARBON DIOXIDE 30 mmol/L (21-32); CHLORIDE 100 mmol/L (98-107); CREATININE 1.1 mg/dL (0.6-1.0); GFR 49.1; GLUCOSE 284 mg/dL (70-99); POTASSIUM 3.1 mmol/L (3.5-5.1); SODIUM 137 mmol/L (136-145); TOTAL BILIRUBIN 0.2 mg/dL (0.2-1.0); TOTAL PROTEIN 7.4 g/dL (6.4-8.2)
[2017-10-24] MEDS: IOHEXOL 300 MG/ML 100ML VIAL. IV (10:28)
== END | disposition home or self-care (01) ==
LOC: CT 09:09
DX: K76.0 Fatty (change of) liver, not elsewhere classified (principal); I70.0 Atherosclerosis of aorta; K57.10 Diverticulosis of small intestine without perforation or abscess without bleeding; I11.0 Hypertensive heart disease with heart failure; I50.9 Heart failure, unspecified; E11.9 Type 2 diabetes mellitus without complications; E78.5 Hyperlipidemia, unspecified; E03.9 Hypothyroidism, unspecified
CPT/HCPCS: 36415; 74175; 80053; Q9967

== ENCOUNTER 2017-11-06 07:23 | Emergency (ER) | payer MEDICARE ==
[~2017-11-06] VITALS: Ht 160 cm; Wt 87.1 kg
[~2017-11-06 07:23] MED LIST changes: -CLON1TAB3 PO; +CLON1TAB4 PO; -FERR-26 PO; +FERR325T14 PO; -HYDROmorphone 2 MG/ML VIAL IV PRN; -INSULIN ASPART 100 UNIT/ML 10ML VIAL. SQ ONE; -INSULIN ASPART 300 UNITS/3 ML INSULN.PEN SQ SCH; -IV RINGERS,LACTATED 1000ML 1,000 ML IV SCH; -LABE100T3 PO; +LABE100T5 PO; -LABETALOL 20 MG/4 ML DISP.SYRIN. ONE; -LIDOCAINE 1% PF 2 ML VIAL. ID PRN; -LIDOCAINE 2% PF Vial for OR 5 ML VIAL. ONE; -MIDAZOLAM HCL/PF 2 MG/2 ML VIAL. IV PRN; -MORPHINE SULFATE 2 MG/ML DISP.SYRIN. IV PRN; -PROCHLORPERAZINE 10 MG/2 ML VIAL. IV PRN; -PROPOFOL 20 ML IV ONE; +TRAZ-85 PO; -TRAZ50TA15 PO; -fentaNYL PF VIAL 100 MCG/2 ML VIAL IV PRN
[2017-11-06] MEDS ORDERED: fentaNYL PF VIAL 100 MCG/2 ML VIAL IV ONE (07:45)
[2017-11-06] MEDS ORDERED: ONDANSETRON PF 4 MG/2 ML VIAL. IV ONE (07:45)
--- NOTE | 2017-11-06 07:46 | PHYS DOC ---
Past Medical History Past Medical History: Anxiety, CAD, CVA, Depression, Diabetes-Type II, Fibromyalgia, High Cholesterol, Hypertension, Other Additional Past Medical Histor: neuropathy, cataracts, subarachnoid hemorrhage( 2002) Past Surgical History: Appendectomy, Cholecystectomy, Hysterectomy, Pacemaker, Other Additional Past Surgical Histo: cardiac cath, cataract removal, permanent pacemaker Alcohol Use: None Drug Use: None Adult General Chief Complaint Chief Complaint: MECHANICAL FALL HPI HPI Patient is a 72-year-old female who presents via EMS after falling while getting out of the shower this morning. Patient fell onto her right side and reportedly injured her right shoulder as well as right hip. She also indicates that she had hit her head but denies any loss of consciousness. Patient states the worst of her pain is located in her right shoulder and she rates that pain at an 8 out of 10. She does indicate that she also has a headache. She states that she is on aspirin but no other blood thinners. She does admit to a history of intracranial hemorrhage. Patient states that pain is worsened with any movement of her right arm. She states that nothing improves her symptoms. Review of Systems Review of Systems Constitutional: Denies fever or chills [] Respiratory: Denies cough or shortness of breath [] Cardiovascular: Denies chest pain[] Musculoskeletal: Complains of right shoulder and hip pain. Complains of neck pain.[] Neurologic: Complains of headache[] All other systems were reviewed and found to be within normal limits, except as documented in this note. Current Medications Current Medications Current Medications Medications (Trade) Dose Ordered Sig/[facility] Start Time Stop Time Status Last Admin Dose Admin Fentanyl Citrate (Fentanyl 2ml Vial) 25 mcg 1X ONCE 11/06/17 07:45 11/06/17 07:46 DC 11/06/17 07:54 25 MCG Ondansetron HCl (Zofran) 4 mg 1X ONCE 11/06/17 07:45 11/06/17 07:46 DC 11/06/17 07:54 4 MG Oxycodone/ Acetaminophen (Percocet 5/325) 1 tab 1X ONCE 11/06/17 09:45 11/06/17 09:47 DC Allergies Allergies Allergies Coded Allergies Type Severity Reaction Last Updated Verified pramipexole Allergy Severe renal failure 02/13/17 Yes Sulfa (Sulfonamide Antibiotics) Allergy Intermediate 02/13/17 Yes clavulanic acid Allergy Intermediate 02/13/17 Yes Physical Exam Physical Exam Constitutional: Well developed, well nourished, no acute distress, non-toxic appearance. [] HENT: Normocephalic, atraumatic, bilateral external ears normal, oropharynx moist, no oral exudates, nose normal. [] Eyes: PERRLA, EOMI, conjunctiva normal, no discharge. [] Neck: Supple with no JVD or lymphadenopathy. Patient reports tenderness to palpation in the bilateral suboccipital musculature. [] Cardiovascular:Heart rate regular rhythm [] Lungs & Thorax: Bilateral breath sounds clear to auscultation [] Abdomen: Bowel sounds normal, soft, no tenderness. [] Skin: Warm, dry, no erythema, no rash. [] Extremities: Right shoulder demonstrates tenderness to palpation around the humeral head. Unable to assess range of motion due to reported pain with minimal motion of forearm/elbow. Patient does report to pain with range of motion of right hip but no shortening or external rotation is noted. [] Neurologic: Alert and oriented X 3, normal motor function, normal sensory function, no focal deficits noted. [] Current Patient Data Vital Signs Vital Signs Date Time Temp Pulse Resp B/P (MAP) Pulse Ox O2 Delivery O2 Flow Rate FiO2 11/06/17 09:41 88 11/06/17 09:01 13 Nasal Cannula 2.0 11/06/17 07:31 99.0 72 108/56 (73) 99.0 Lab Values Laboratory Tests Test 11/06/17 07:30 11/06/17 07:47 White Blood Count 7.3 x10^3/uL (4.0-11.0) Red Blood Count 4.40 x10^6/uL (3.50-5.40) Hemoglobin 13.1 g/dL (12.0-15.5) Hematocrit 38.3 % (36.0-47.0) Mean Corpuscular Volume 87 fL (79-100) Mean Corpuscular Hemoglobin 30 pg (25-35) Mean Corpuscular Hemoglobin Concent 34 g/dL (31-37) Red Cell Distribution Width 13.4 % (11.5-14.5) Platelet Count 191 x10^3/uL (140-400) Neutrophils (%) (Auto) 60 % (31-73) Lymphocytes (%) (Auto) 33 % (24-48) Monocytes (%) (Auto) 5 % (0-9) Eosinophils (%) (Auto) 2 % (0-3) Basophils (%) (Auto) 1 % (0-3) Neutrophils # (Auto) 4.3 x10^3uL (1.8-7.7) Lymphocytes # (Auto) 2.4 x10^3/uL (1.0-4.8) Monocytes # (Auto) 0.4 x10^3/uL (0.0-1.1) Eosinophils # (Auto) 0.1 x10^3/uL (0.0-0.7) Basophils # (Auto) 0.0 x10^3/uL (0.0-0.2) Sodium Level 136 mmol/L (136-145) Potassium Level 3.3 mmol/L (3.5-5.1) L Chloride Level 98 mmol/L (98-107) Carbon Dioxide Level 37 mmol/L (21-32) H Anion Gap 1 (6-14) L Blood Urea Nitrogen 12 mg/dL (7-20) Creatinine 1.2 mg/dL (0.6-1.0) H Estimated GFR (Cockcroft-Gault) 44.4 BUN/Creatinine Ratio 10 (6-20) Glucose Level 240 mg/dL (70-99) H Calcium Level 8.6 mg/dL (8.5-10.1) Total Bilirubin 0.5 mg/dL (0.2-1.0) Aspartate Amino Transferase (AST) 29 U/L (15-37) Alanine Aminotransferase (ALT) 30 U/L (14-59) Alkaline Phosphatase 120 U/L (46-116) H Total Protein 7.2 g/dL (6.4-8.2) Albumin 3.4 g/dL (3.4-5.0) Albumin/Globulin Ratio 0.9 (1.0-1.7) L Glucose (Fingerstick) 227 mg/dL (70-99) H Laboratory Tests 11/06/17 07:30 Laboratory Tests 11/06/17 07:30 EKG EKG [] Radiology/Procedures Radiology/Procedures [] Impressions: CT head without contrast demonstrates no acute intracranial abnormalities. CT of the cervical spine demonstrates no acute cervical spine injury but there is findings of comminuted fracture of the medial right clavicle extending into the sternoclavicular joint. Course & Med Decision Making Course & Med Decision Making Pertinent Labs and Imaging studies reviewed. (See chart for details) [] Dragon Disclaimer Dragon Disclaimer This electronic medical record was generated, in whole or in part, using a voice recognition dictation system. Departure Departure Impression: Primary Impression: Clavicle fracture, sternal end Disposition: 01 HOME, SELF-CARE Condition: STABLE Referrals: ROMAN BRUNER MD follow up in 5-7 days. Patient Instructions: Clavicle Fracture Additional Instructions: Take prescribed medication as directed and call to schedule follow-up appointment with Dr. Bruner within the next week. Scripts Oxycodone/Apap 5-325 (PERCOCET 5-325 MG TABLET) 1 Each Tablet 1-2 EACH PO Q6HRS PRN for PAIN, #15 TAB pain Prov: ROSAS ELIAS Jr. DO 11/06/17 Problem Qualifiers Primary Impression: Clavicle fracture, sternal end Encounter type: initial encounter Fracture type: closed Fracture alignment : nondisplaced Laterality: right Qualified Codes: S42.017A - Nondisplaced fracture of sternal end of right clavicle, initial encounter for closed fracture ROSAS ELIAS Jr. DO Nov 06, 2017 07:46
[2017-11-06 07:50] LABS: BASO % 1 % (0-3); EOS # 0.1 x10^3/uL (0.0-0.7); EOS % 2 % (0-3); HEMATOCRIT 38.3 % (36.0-47.0); HEMOGLOBIN 13.1 g/dL (12.0-15.5); LYMPH # 2.4 x10^3/uL (1.0-4.8); LYMPH % 33 % (24-48); MEAN CORPUSCULAR HEMOGLOBIN 30 pg (25-35); MEAN CORPUSCULAR HGB CONC 34 g/dL (31-37); MEAN CORPUSCULAR VOLUME 87 fL (79-100); MONO # 0.4 x10^3/uL (0.0-1.1); MONO % 5 % (0-9); NEUT # 4.3 x10^3uL (1.8-7.7); NEUT % 60 % (31-73); PLATELET COUNT 191 x10^3/uL (140-400); RED CELL DISTRIBUTION WIDTH 13.4 % (11.5-14.5); WHITE BLOOD COUNT 7.3 x10^3/uL (4.0-11.0)
[2017-11-06 07:52] LABS: CALCIUM 8.6 mg/dL (8.5-10.1); CREATININE 1.2 mg/dL (0.6-1.0); GFR 44.4; POTASSIUM 3.3 mmol/L (3.5-5.1)
[2017-11-06 07:58] LABS: ALBUMIN 3.4 g/dL (3.4-5.0); ALBUMIN/GLOBULIN RATIO 0.9 (1.0-1.7); TOTAL BILIRUBIN 0.5 mg/dL (0.2-1.0); TOTAL PROTEIN 7.2 g/dL (6.4-8.2)
--- NOTE | 2017-11-06 08:58 | RAD ---
EXAM: CT Head without IV contrast CLINICAL HISTORY: FALL THIS AM NECK R SHOULDER PAIN PREV SENT COMPARISON: None. TECHNIQUE: Routine CT of the head without contrast. Soft tissues and bone windows were reviewed. PQRS compliance statement - One or more of the following individualized dose reduction techniques were utilized for this study: 1. Automated exposure control 2. Adjustment of the mA and/or kV according to patient size 3. Use of iterative reconstruction technique FINDINGS: There is no evidence of hemorrhage, mass or extra-axial fluid collection. Aguilar-white differentiation is maintained with no evidence of edema. There are non-specific foci of hypodensity in the periventricular and subcortical white matter, most prominent in the right frontoparietal region, of the cerebral hemispheres. There is no mass effect or shift of the intracranial structures. The ventricles, basilar cisterns and cortical sulci are normal in size and configuration for the patients stated age. The cerebellum and brainstem are unremarkable. The calvarium demonstrates no evidence of fracture or focal lesion. There is normal aeration of the visualized paranasal sinuses and mastoid air cells. The visualized portions of the orbits are normal. IMPRESSION: No evidence of acute intracranial process Changes of chronic small vessel ischemic disease most prominent in the right frontoparietal region. EXAM: CT cervical spine CLINICAL HISTORY: FALL THIS AM NECK R SHOULDER PAIN PREV SENT COMPARISON: None available. TECHNIQUE: This CT study consists of contiguous axial images performed through the cervical spine. Sagittal and coronal reformatted images were also performed. PQRS compliance statement - One or more of the following individualized dose reduction techniques were utilized for this study: 1. Automated exposure control 2. Adjustment of the mA and/or kV according to patient size 3. Use of iterative reconstruction technique FINDINGS: There is a mildly comminuted fracture of the right medial clavicle with extension into the sternoclavicular joint. Vertebral body heights are preserved. No evidence of acute cervical spine fracture. There is straightening of the normal cervical lordosis. No significant spondylolisthesis. Multilevel degenerative changes are seen including atlantodental interval degenerative changes as well as bilateral facet degenerative changes. Moderate C6-7 and C7-T1 intervertebral disc height loss with small anterior and posterior endplate osteophytes. C2-C3: Small posterior disc osteophyte complex causes no significant central canal stenosis and mild left neural foraminal narrowing. C3-C4: Posterior disc osteophyte complex, bilateral facet degenerative changes and uncovertebral hypertrophy cause mild central canal stenosis and moderate bilateral neural foraminal narrowing. C4-C5: Posterior disc osteophyte complex with bilateral facet degenerative changes and uncovertebral hypertrophy cause mild central canal stenosis and moderate to severe bilateral neural foraminal narrowing. C5-C6: Posterior disc osteophyte complex, uncovertebral hypertrophy and right greater than left facet degenerative changes cause moderate central canal stenosis, moderate to severe bilateral neural foraminal narrowing. C6-C7: Diffuse posterior disc osteophyte complex with uncovertebral hypertrophy causes moderate central canal stenosis, moderate to severe left and moderate right neural foraminal narrowing. C7-T1: Posterior disc osteophyte complex and facet degenerative changes causes moderate to severe central canal stenosis, moderate left and [id number] right neural foraminal narrowing. IMPRESSION: 1. Comminuted fracture of the medial right clavicle which extends into the sternoclavicular joint. 2. No evidence for acute cervical spine fracture or subluxation Electronically signed by: Vance Rob MD (11/06/2017 8:55 AM) [id number]
--- NOTE | 2017-11-06 09:08 | RAD ---
EXAM: Pelvis and left hip, 3 views; right shoulder, 3 views. HISTORY: Fall. COMPARISON: None. FINDINGS: Pelvis and left hip: A frontal view the pelvis and 2 views of the left hip are obtained. There is no fracture, dislocation or subluxation. There is slight decreased femoral head-neck offset, not clearly within limits to suggest significant hip impingement. There is a generator within the right buttock with leads extend cephalad from the [id number]. There is instrumented and noninstrumented lumbar spinal fusion with laminectomy decompression. There are stimulator leads overlying the lumbosacral junction. There is evidence of ventral abdominal wall hernia repair. Right shoulder: 3 views of the right shoulder are obtained. There is mild acromioclavicular subchondral sclerosis, subchondral cyst formation and minimal spurring. No fracture, dislocation or subluxation is seen. There is degenerative change involving the cervical spine. A stimulator lead is seen overlying the thoracic vertebral column. IMPRESSION: 1. No acute osseous finding. 2. Mild right acromioclavicular osteoarthritis and minimal degenerative change involving both hips. 3. Degenerative and postoperative changes involving the lumbar spine. Electronically signed by: Donna Grossman MD (11/06/2017 9:05 AM) [facility]
--- NOTE | 2017-11-06 09:08 | RAD ---
EXAM: Pelvis and left hip, 3 views; right shoulder, 3 views. HISTORY: Fall. COMPARISON: None. FINDINGS: Pelvis and left hip: A frontal view the pelvis and 2 views of the left hip are obtained. There is no fracture, dislocation or subluxation. There is slight decreased femoral head-neck offset, not clearly within limits to suggest significant hip impingement. There is a generator within the right buttock with leads extend cephalad from the [id number]-[id number]-[id number]. There is instrumented and noninstrumented lumbar spinal fusion with laminectomy decompression. There are stimulator leads overlying the lumbosacral junction. There is evidence of ventral abdominal wall hernia repair. Right shoulder: 3 views of the right shoulder are obtained. There is mild acromioclavicular subchondral sclerosis, subchondral cyst formation and minimal spurring. No fracture, dislocation or subluxation is seen. There is degenerative change involving the cervical spine. A stimulator lead is seen overlying the thoracic vertebral column. IMPRESSION: 1. No acute osseous finding. 2. Mild right acromioclavicular osteoarthritis and minimal degenerative change involving both hips. 3. Degenerative and postoperative changes involving the lumbar spine. Electronically signed by: Donna Grossman MD (11/06/2017 9:05 AM) [facility]
[2017-11-06 09:30] VITALS: BP 140/62
[2017-11-06] MEDS ORDERED: oxyCODONE/APAP 5/325 1 TAB TABLET PO ONE (09:45)
[2017-11-06] MEDS ORDERED: OXYC-323 PO (09:55)
== END 2017-11-06 10:18 | disposition home or self-care (01) ==
LOC: ER 07:23
DX: S42.017A Nondisplaced fracture of sternal end of right clavicle, initial encounter for closed fracture (principal); M16.12 Unilateral primary osteoarthritis, left hip; E11.40 Type 2 diabetes mellitus with diabetic neuropathy, unspecified; E78.00 Pure hypercholesterolemia, unspecified; I10 Essential (primary) hypertension; I25.10 Atherosclerotic heart disease of native coronary artery without angina pectoris; Z86.73 Personal history of transient ischemic attack (TIA), and cerebral infarction without residual deficits; Z88.1 Allergy status to other antibiotic agents; Z88.2 Allergy status to sulfonamides; Z95.0 Presence of cardiac pacemaker; Z88.8 Allergy status to other drugs, medicaments and biological substances; W17.89XA Other fall from one level to another, initial encounter; Y93.E1 Activity, personal bathing and showering; Y92.89 Other specified places as the place of occurrence of the external cause; Y99.8 Other external cause status
CPT/HCPCS: 36415; 70450; 72125; 73030; 73502; 80053; 82962; 85025; 96374; 96375; 99284; J2405; J3010

== ENCOUNTER 2017-11-08 20:45 | Emergency (ER) | payer MEDICARE ==
[~2017-11-08] VITALS: Ht 160 cm; Wt 87.1 kg
[~2017-11-08 20:45] MED LIST changes: +LIDOCAINE (700MG/PATCH) PATCH. TD ONE; +OXYC-323 PO
[2017-11-08 20:55] VITALS: BP 166/70
[2017-11-08] MEDS ORDERED: HYDROcodone/APAP 5/325MG 1 TAB TABLET PO ONE (21:45)
[2017-11-08] MEDS ORDERED: IBUPROFEN 600 MG TABLET. PO ONE (21:45)
--- NOTE | 2017-11-08 21:49 | PHYS DOC ---
Past Medical History Past Medical History: Angina, Diabetes-Type II, Fibromyalgia Additional Past Medical Histor: neuropathy, cataracts, subarachnoid hemorrhage( 2003), pacemaker 2015, Past Surgical History: Cholecystectomy, Hysterectomy, Pacemaker Additional Past Surgical Histo: "10 BACK SURGERIES", COLON RESECTION, BREAST REDUCTION Alcohol Use: None Drug Use: None Adult General Chief Complaint Chief Complaint: PAIN CONTROL HPI HPI 72 y/o female returns to ER for c/o ongoing rt shoulder pain following a fall on 11/06 for which she was evaluated in the ER. Pt had imaging done and was placed in sling to rt shoulder with plans to f/u with orthopedic doctor for further eval/care. Pt reports she hasn't been wearing her sling and took 1 percocet this morning but has taken no additional medications today for pain. She reports the sling doesn't stay on and so she just hasn't put it on today. Pt reports hx of chronic pain and fibromyalgia. Review of Systems Review of Systems Constitutional: Denies fever or chills [] Eyes: Denies change in visual acuity, redness, or eye pain [] HENT: Denies nasal congestion or sore throat [] Respiratory: Denies cough or shortness of breath [] Cardiovascular: No additional information not addressed in HPI [] GI: Denies abdominal pain, nausea, vomiting, bloody stools or diarrhea [] : Denies dysuria or hematuria [] Musculoskeletal: Denies back pain or joint pain [] Integument: Denies rash or skin lesions [] Neurologic: Denies headache, focal weakness or sensory changes [] Endocrine: Denies polyuria or polydipsia [] All other systems were reviewed and found to be within normal limits, except as documented in this note. Current Medications Current Medications Current Medications Medications (Trade) Dose Ordered Sig/[facility] Start Time Stop Time Status Last Admin Dose Admin Acetaminophen/ Hydrocodone Bitart (Lortab 5/325) 1 tab 1X ONCE 11/08/17 21:45 11/08/17 21:46 DC 11/08/17 22:00 1 TAB Ibuprofen (Motrin) 600 mg 1X ONCE 11/08/17 21:45 11/08/17 21:46 DC 11/08/17 22:00 600 MG Lidocaine (Lidoderm) 1 patch ONCE ONCE 11/08/17 22:00 11/08/17 22:01 DC 11/08/17 22:01 1 PATCH Allergies Allergies Allergies Coded Allergies Type Severity Reaction Last Updated Verified pramipexole Allergy Severe renal failure 02/13/17 Yes Sulfa (Sulfonamide Antibiotics) Allergy Intermediate 02/13/17 Yes clavulanic acid Allergy Intermediate 02/13/17 Yes Physical Exam Physical Exam Constitutional: Well developed, well nourished, no acute distress, non-toxic appearance. [] HENT: Normocephalic, atraumatic, bilateral external ears normal, oropharynx moist, no oral exudates, nose normal. [] Eyes: PERRLA, EOMI, conjunctiva normal, no discharge. [] Neck: Normal range of motion, no tenderness, supple, no stridor. [] Cardiovascular:Heart rate regular rhythm, no murmur [] Lungs & Thorax: Bilateral breath sounds clear to auscultation [] Abdomen: Bowel sounds normal, soft, no tenderness, no masses, no pulsatile masses. [] Skin: Warm, dry, no erythema, no rash. [] Back: No tenderness, no CVA tenderness. [] Extremities: No tenderness, no cyanosis, no clubbing, ROM intact, no edema. [] Neurologic: Alert and oriented X 3, normal motor function, normal sensory function, no focal deficits noted. [] Psychologic: Affect normal, judgement normal, mood normal. [] Current Patient Data Vital Signs Vital Signs Date Time Temp Pulse Resp B/P (MAP) Pulse Ox O2 Delivery O2 Flow Rate FiO2 11/08/17 22:00 20 96 Room Air 11/08/17 20:55 98.9 98 166/70 (102) 98.9 EKG EKG [] Radiology/Procedures Radiology/Procedures [] Course & Med Decision Making Course & Med Decision Making 1060: Reevaluation following treatments received in the ER. This provider entered room and found patient ambulatory at bedside eating crackers using her right arm to place crackers in her mouth without any facial grimacing or difficulty with range of motion. Reports she is ready for home discharge again further discussed wearing sling to right upper extremity and patient stated "I don't think I will use it". Advised they should keep scheduled orthopedic appointment on 11/20/17 as planned for further evaluation and care. Patient has prescription for Percocet at home and educated on use of [id number] ibuprofen as directed on container. Patient remains neuro and vascular intact to right upper extremity. Discharge instructions discussed and education provided on signs and symptoms to return to ER for. Dragon Disclaimer Dragon Disclaimer This electronic medical record was generated, in whole or in part, using a voice recognition dictation system. Departure Departure Impression: Primary Impression: Shoulder pain, right Disposition: HOME, SELF-CARE Condition: STABLE Referrals: LO LEDESMA MD (PCP) Patient Instructions: Shoulder Pain, Sling Use After Injury or Surgery Additional Instructions: Keep your appointment scheduled on 11/20 with orthopedic doctor Wear your sling Take your prescribed pain medications as previously prescribed and if pain worsens can take ibuprofen as directed on container. Sports cream can be applied affected joint as directed on container Ice pack every 3-4 hours for 20-30 minutes at a time JENNIFER AGUILLON APRN Nov 08, 2017 21:49
[2017-11-08] MEDS ORDERED: LIDOCAINE (700MG/PATCH) PATCH. TD ONE (22:00)
== END 2017-11-08 23:40 | disposition home or self-care (01) ==
LOC: ER 20:45
DX: M25.511 Pain in right shoulder (principal); G89.11 Acute pain due to trauma; M79.7 Fibromyalgia; E11.40 Type 2 diabetes mellitus with diabetic neuropathy, unspecified; I20.9 Angina pectoris, unspecified; Z95.0 Presence of cardiac pacemaker; Z88.2 Allergy status to sulfonamides; Z88.8 Allergy status to other drugs, medicaments and biological substances; Z88.1 Allergy status to other antibiotic agents; W19.XXXD Unspecified fall, subsequent encounter
CPT/HCPCS: 99284

== ENCOUNTER 2017-11-13 13:37 | Inpatient (IN) | payer MEDICARE ==
[~2017-11-13] VITALS: Ht 160 cm; Wt 88.0 kg
[~2017-11-13 13:37] MED LIST changes: -AMLO10TA2 PO; +AMLO10TA6 PO; -GEMF600T3 PO; +GEMF600T4 PO; -LIDOCAINE (700MG/PATCH) PATCH. TD ONE
[2017-11-13] MEDS ORDERED: fentaNYL PF VIAL 100 MCG/2 ML VIAL IM ONE (14:00)
--- NOTE | 2017-11-13 14:21 | RAD ---
Three-view right shoulder dated 11/13/2017. No comparison available. Clinical data indication: Pain after fall today. FINDINGS: 3 views of the right shoulder show normal bony alignment. No displaced fracture. No acute osseous or articular abnormality. Mild hypertrophic change of the AC joint. IMPRESSION:. No acute radiographic abnormality. Electronically signed by: Anmol Mercado MD (11/13/2017 2:18 PM) [id number]
--- NOTE | 2017-11-13 14:28 | PHYS DOC ---
Past Medical History Past Medical History: Angina, Diabetes-Type II, Fibromyalgia Additional Past Medical Histor: neuropathy, cataracts, subarachnoid hemorrhage( 2003), pacemaker 2015, Past Surgical History: Cholecystectomy, Hysterectomy, Pacemaker Additional Past Surgical Histo: "10 BACK SURGERIES", COLON RESECTION, BREAST REDUCTION Alcohol Use: None Drug Use: None Adult General Chief Complaint Chief Complaint: MECHANICAL FALL HPI HPI Patient is a 72 year old female with a history of fibromyalgia, hypertension, angina, who presents today to be evaluated status post falling. Patient states she was walking in her kitchen when she fell. Patient denies any loss of consciousness. She states she's had multiple frequent falls in the last 1 month. Patient denies being on any anticoagulants. She is complaining of 10 out of 10 posterior head and neck pain. She is also complaining of low back pain. She states she is out of her narcotic pain medicines at home. PCP Dr. Lo Burgos Review of Systems Review of Systems Constitutional: Denies fever or chills [] Eyes: Denies change in visual acuity, redness, or eye pain [] HENT: Denies nasal congestion or sore throat [] Respiratory: Denies cough or shortness of breath [] Cardiovascular: No additional information not addressed in HPI [] GI: Denies abdominal pain, nausea, vomiting, bloody stools or diarrhea [] : Denies dysuria or hematuria [] Musculoskeletal: Reports exterior neck pain and low back pain Integument: Denies rash or skin lesions [] Neurologic: Reports posterior head pain, denies focal weakness or sensory changes [] All other systems were reviewed and found to be within normal limits, except as documented in this note. Current Medications Current Medications Current Medications Medications (Trade) Dose Ordered Sig/Marly Start Time Stop Time Status Last Admin Dose Admin Acetaminophen (Tylenol) 650 mg PRN Q6HRS PRN 11/13/17 15:00 Al Hydroxide/Mg Hydroxide (Mylanta Plus Xs) 30 ml PRN Q3HRS PRN 11/13/17 15:00 Bisacodyl (Dulcolax Supp) 10 mg PRN DAILY PRN 11/13/17 15:00 Calcium Carbonate/ Glycine (Tums) 500 mg PRN Q3HRS PRN 11/13/17 15:00 Clonidine HCl (Catapres) 0.1 mg PRN Q1HR PRN 11/13/17 15:00 Fentanyl Citrate (Fentanyl 2ml Vial) 50 mcg 1X ONCE 11/13/17 14:00 11/13/17 14:02 DC 11/13/17 15:27 50 MCG Ibuprofen (Motrin) 400 mg PRN Q6HRS PRN 11/13/17 15:00 Ketorolac Tromethamine (Toradol 15mg Vial) 15 mg PRN Q6HRS PRN 11/13/17 15:00 11/18/17 14:59 Magnesium Hydroxide (Milk Of Magnesia) 2,400 mg PRN Q12HR PRN 11/13/17 15:00 Morphine Sulfate (Morphine Sulfate) 1 mg PRN Q1HR PRN 11/13/17 15:00 Ondansetron HCl (Zofran) 4 mg PRN Q6HRS PRN 11/13/17 15:00 Oxycodone HCl (Roxicodone) 5 mg PRN Q3HRS PRN 11/13/17 15:00 Prochlorperazine (Compazine) 25 mg PRN Q12HR PRN 11/13/17 15:00 Prochlorperazine Edisylate (Compazine) 10 mg PRN Q6HRS PRN 11/13/17 15:00 Allergies Allergies Allergies Coded Allergies Type Severity Reaction Last Updated Verified pramipexole Allergy Severe renal failure 02/13/17 Yes Sulfa (Sulfonamide Antibiotics) Allergy Intermediate 02/13/17 Yes clavulanic acid Allergy Intermediate 02/13/17 Yes Physical Exam Physical Exam Constitutional: Well developed, well nourished, no acute distress, non-toxic appearance. [] HENT: Normocephalic, atraumatic, bilateral external ears normal, oropharynx moist, no oral exudates, nose normal. [] Eyes: PERRLA, EOMI, conjunctiva normal, no discharge. [] Neck: Normal range of motion, no tenderness, supple, no stridor. [] Cardiovascular: Pace maker present. Heart rate regular rhythm, no murmur [] Lungs & Thorax: Bilateral breath sounds clear to auscultation [] Abdomen: Bowel sounds normal, soft, no tenderness, no masses, no pulsatile masses. [] Skin: Warm, dry, no erythema, no rash. [] Back: Diffuse paraspinal muscle tenderness to bilateral lumbar spine as well as slight midline lumbar spine tenderness, no CVA tenderness. [] Extremities: Right shoulder with bruising that appears old. Tenderness over the ACM no cyanosis, no clubbing, ROM intact, no edema.Bruising noted to bilateral knees patient is denying pain Neurologic: Alert and oriented X 3, normal motor function, normal sensory function, no focal deficits noted. Cranial nerves II through XII intact Psychologic: Flat affect, appears restless to the lower extremities, states has history of restless leg syndrome Current Patient Data Vital Signs Vital Signs Date Time Temp Pulse Resp B/P (MAP) Pulse Ox O2 Delivery O2 Flow Rate FiO2 11/13/17 14:45 22 96 11/13/17 13:45 98.8 77 98.8 11/13/17 13:45 161/80 (107) Room Air Lab Values Laboratory Tests Test 11/13/17 14:23 Urine Collection Type Unknown Urine Color Yellow Urine Clarity Clear Urine pH 6.0 Urine Specific Home 1.010 Urine Protein Negative mg/dL (NEG-TRACE) Urine Glucose (UA) 500 mg/dL (NEG) Urine Ketones (Stick) Negative mg/dL (NEG) Urine Blood Trace (NEG) Urine Nitrite Negative (NEG) Urine Bilirubin Negative (NEG) Urine Urobilinogen Dipstick 0.2 mg/dL (0.2 mg/dL) Urine Leukocyte Esterase Trace (NEG) Urine RBC Occ /HPF (0-2) Urine WBC Occ /HPF (0-4) Urine Squamous Epithelial Cells Mod /LPF Urine Bacteria 0 /HPF (0-FEW) Urine Opiates Screen Neg (NEG) Urine Methadone Screen Neg (NEG) Urine Barbiturates Neg (NEG) Urine Phencyclidine Screen Neg (NEG) Urine Amphetamine/Methamphetamine Neg (NEG) Urine Benzodiazepines Screen Neg (NEG) Urine Cocaine Screen Neg (NEG) Urine Cannabinoids Screen Neg (NEG) Urine Ethyl Alcohol Neg (NEG) EKG EKG [] Radiology/Procedures Radiology/Procedures []PROCEDURE: SHOULDER 2+V RIGHT Three-view right shoulder dated 11/13/2017. No comparison available. Clinical data indication: Pain after fall today. FINDINGS: 3 views of the right shoulder show normal bony alignment. No displaced fracture. No acute osseous or articular abnormality. Mild hypertrophic change of the AC joint. IMPRESSION:. No acute radiographic abnormality. Electronically signed by: Anmol Mercado MD (11/13/2017 2:18 PM) [id number] DICTATED and SIGNED BY: ANMOL MERCADO MD DATE: 11/13/17 1418 PROCEDURE: CT HEAD AND CERVICAL SPINE WO Examination: CT head and cervical spine without contrast Exposure: One or more of the following individualized dose reduction techniques were utilized for this examination: 1. Automated exposure control 2. Adjustment of the mA and/or kV according to patient size 3. Use of iterative reconstruction technique CT HEAD INDICATION: FALL, HEAD, NECK AND BACK PAIN, PRIORS SENT, DEMENTIA, DIFFICULTY HOLDING STILL COMPARISON: None Available. TECHNIQUE: 5 mm contiguous axial images were obtained from the skull base to the vertex in both bone and soft tissue algorithm. FINDINGS: Mild bilateral periventricular white matter hypodensities likely chronic small vessel ischemic disease. No evidence of acute intracranial hemorrhage. No extra-axial fluid collections. No mass effect or midline shift. Ventricular size is appropriate. Basal cisterns are patent. No fractures identified.Howell-white differentiation is preserved.Globes and orbits are within normal limits. Paranasal sinuses and mastoid air cells are clear. IMPRESSION: No acute intracranial findings. CT CERVICAL SPINE INDICATION: FALL, HEAD, NECK AND BACK PAIN, PRIORS SENT, DEMENTIA, DIFFICULTY HOLDING STILL COMPARISON: None Available. Technique: 2.5 mm contiguous axial images were obtained from the skull base through the cervicothoracic junction in both bone and soft tissue algorithm. Additional sagittal and coronal reconstructions were also performed. FINDINGS: Vertebral body heights are maintained. There is straightening of normal cervical lordosis. The lateral masses of C1 are aligned upon C2. No acute fracture cervical spine. Moderate intervertebral disc height loss identified throughout the cervical spine most severe at C6-C7 vertebral level with small anterior and posterior osteophyte formation. Disc bulges identified throughout the cervical spine most at C5-C6, C6-C7 vertebral levels. The paraspinous soft tissues are unremarkable. Visualized intracranial contents are unremarkable. Lung apices are clear. Partially visualized comminuted fractures of the medial right clavicle identified. IMPRESSION: 1. No acute fracture of the cervical spine. Correlate clinically. 2. Partially visualized comminuted fracture of the medial right clavicle again identified. Electronically signed by: Gustavo Joyce MD (11/13/2017 3:25 PM) [id number] DICTATED and SIGNED BY: GUSTAVO JOYCE MD DATE: 11/13/17 1506 PROCEDURE: CT LUMBAR SPINE WO CONTRAST CT LUMBAR SPINE WO CONTRAST Indication: Fall, back pain Technique: Noncontrast CT imaging was performed of the lumbar spine, multiplanar reconstruction images submitted. One or more of the following individualized dose reduction techniques were utilized for this examination: 1. Automated exposure control 2. Adjustment of the mA and/or kV according to patient size 3. Use of iterative reconstruction technique. Comparison: None Findings: There is bone demineralization. There is posterolateral fusion hardware L1-L5 on the left and L1-L4 on the right with pedicle screws attached to vertical rods. Vertical rods are not contiguous at the L2-3 level. There is again severe narrowing of the L1-2 intervertebral disc space and incorporated interbody grafts at L2-3 and L3-L4. There is also severe narrowing of the L5-S1 intervertebral disc space. Lumbar vertebral body stature and AP alignment are unchanged. There is minimal posterior subluxation L1 relative L2 and mild inferior height loss of L1. There is right pedicle screw tract and L5 as seen previously. There has been posterior arthrodesis L4-5 and L5-S1. There has been multilevel posterior decompression as seen previously. No acute lumbar spine fracture is identified. There is mild superior lumbar dextroscoliosis. Visualized urinary bladder is somewhat distended. IMPRESSION: 1. No acute lumbar spine fracture is identified. There is bone demineralization. There are postsurgical changes of the lumbar spine as stated. 2. Visualized urinary bladder is somewhat distended. Electronically signed by: Torin Lewis MD (11/13/2017 3:16 PM) [id number] DICTATED and SIGNED BY: TORIN LEWIS MD DATE: 11/13/17 1511 PROCEDURE: CT THORACIC SPINE WO CONTRAST CT THORACIC SPINE WO CONTRAST Indication: Fall, back pain Technique: Noncontrast CT imaging was performed of the thoracic spine, multiplanar reconstruction images submitted. One or more of the following individualized dose reduction techniques were utilized for this examination: 1. Automated exposure control 2. Adjustment of the mA and/or kV according to patient size 3. Use of iterative reconstruction technique. Comparison: September 22, 2013 Findings: There is some motion degradation. Thoracic vertebral body stature and AP alignment are overall preserved. No acute thoracic spine fracture is identified. Thoracic spinal stimulator leads terminate at the inferior aspect of T6. There is degenerative disc disease greatest T8-T9, T9-T10, T11-12. There is also degenerative disc disease and spondylosis at the visualized C6-7 level. There is multilevel facet degenerative change resulting in neural foramina compromise, moderate to severe narrowing on the left T7-8, T9-10, T10-11, T11-12 and on the right at T8-T9 and T10-11. There is also narrowing of the neural foramina and the visualized superior cervical spine such as left greater than right at C7-T1, on the left at C6-7, bilaterally at C5-6, C4-5, C3-4. There is left electronic cardiac device. IMPRESSION: 1. No acute thoracic spine fracture is identified by CT. 2. There is multilevel cervical and thoracic neural foramina compromise. Electronically signed by: Torin Lewis MD (11/13/2017 3:32 PM) [id number] DICTATED and SIGNED BY: TORIN LEWIS MD DATE: 11/13/17 1526 Course & Med Decision Making Course & Med Decision Making Pertinent Labs and Imaging studies reviewed. (See chart for details) This is a 72-year-old female patient presenting to the ED today to be evaluated status post falling. No loss of consciousness. Off not patient has been seen in the ED 3 times in the last 1 month after falling. No loss of consciousness. CT of the head, cervical spine, thoracic and lumbar spine were negative for any acute findings. This patient has had multiple falls, not safe to go home. We'll admit patient for possible rehabilitation placement. 15:[address] Meyer, patient was admitted. Staff Physician Addendum: I was working in the ER during the course of this patient's visit. I was available for consultation as needed, but I was not directly involved in the care of this patient. Dragon Disclaimer Dragon Disclaimer This electronic medical record was generated, in whole or in part, using a voice recognition dictation system. Departure Departure Impression: Primary Impression: Fall from standing Additional Impression: Lumbar contusion Disposition: ADMITTED INPATIENT Condition: STABLE Referrals: LO LEDESMA MD (PCP) Problem Qualifiers Primary Impression: Fall from standing Encounter type: initial encounter Qualified Codes: W19.XXXA - Unspecified fall, initial encounter Additional Impression: Lumbar contusion Encounter type: initial encounter Qualified Codes: S30.0XXA - Contusion of lower back and pelvis, initial encounter MANUEL ADAMES APRN Nov 13, 2017 14:28 MATTIE BRAXTON MD Nov 13, 2017 16:33
[2017-11-13] MEDS ORDERED: KETOROLAC 15 MG/ML VIAL. IV PRN (15:00)
[2017-11-13] MEDS ORDERED: ONDANSETRON PF 4 MG/2 ML VIAL. IV PRN ×2 (15:00→15:45)
[2017-11-13] MEDS ORDERED: MAGNESIUM HYDROXIDE 2,400 MG/30 ML ORAL.SUSP. PO PRN (15:00)
[2017-11-13] MEDS ORDERED: cloNIDine HCL 0.1 MG TABLET PO PRN (15:00)
[2017-11-13] MEDS ORDERED: BISACODYL 10 MG SUPP.RECT. PR PRN (15:00)
[2017-11-13] MEDS ORDERED: PROCHLORPERAZINE 25 MG SUPP.RECT. PR PRN (15:00)
[2017-11-13] MEDS ORDERED: ACETAMINOPHEN 325 MG TABLET. PO PRN ×2 (15:00→15:45)
[2017-11-13] MEDS ORDERED: MAG HYDROX/ALUMINUM HYD/SIMETH 30 ML ORAL.SUSP PO PRN (15:00)
[2017-11-13] MEDS ORDERED: CALCIUM CARBONATE 500 MG TAB.CHEW PO PRN (15:00)
[2017-11-13] MEDS ORDERED: IBUPROFEN 400 MG TABLET. PO PRN (15:00)
[2017-11-13] MEDS ORDERED: oxyCODONE IR 5 MG TABLET PO PRN (15:00)
[2017-11-13] MEDS ORDERED: MORPHINE SULFATE 2 MG/ML VIAL. IV PRN (15:00)
[2017-11-13] MEDS ORDERED: PROCHLORPERAZINE 10 MG/2 ML VIAL. IV PRN (15:00)
[2017-11-13 15:15] LABS: BILIRUBIN,URINE NEGATIVE (NEG); CLARITY,URINE CLEAR; COLOR,URINE YELLOW; NITRITE,URINE NEGATIVE (NEG); PROTEIN,URINE NEGATIVE (NEG-TRACE); UROBILINOGEN,URINE 0.2 mg/dL (0.2 mg/dL)
[2017-11-13] MEDS ORDERED: TEMAZEPAM 15 MG CAPSULE PO PRN (15:15)
[2017-11-13] MEDS ORDERED: ALPRAZolam 1 MG TABLET PO PRN (15:15)
[2017-11-13] MEDS ORDERED: DEXTROSE 50% 25 GM / 50ML DISP.SYRIN. IV PRN (15:15)
--- NOTE | 2017-11-13 15:20 | RAD ---
CT LUMBAR SPINE WO CONTRAST Indication: Fall, back pain Technique: Noncontrast CT imaging was performed of the lumbar spine, multiplanar reconstruction images submitted. One or more of the following individualized dose reduction techniques were utilized for this examination: 1. Automated exposure control 2. Adjustment of the mA and/or kV according to patient size 3. Use of iterative reconstruction technique. Comparison: None Findings: There is bone demineralization. There is posterolateral fusion hardware L1-L5 on the left and L1-L4 on the right with pedicle screws attached to vertical rods. Vertical rods are not contiguous at the L2-3 level. There is again severe narrowing of the L1-2 intervertebral disc space and incorporated interbody grafts at L2-3 and L3-L4. There is also severe narrowing of the L5-S1 intervertebral disc space. Lumbar vertebral body stature and AP alignment are unchanged. There is minimal posterior subluxation L1 relative L2 and mild inferior height loss of L1. There is right pedicle screw tract and L5 as seen previously. There has been posterior arthrodesis L4-5 and L5-S1. There has been multilevel posterior decompression as seen previously. No acute lumbar spine fracture is identified. There is mild superior lumbar dextroscoliosis. Visualized urinary bladder is somewhat distended. IMPRESSION: 1. No acute lumbar spine fracture is identified. There is bone demineralization. There are postsurgical changes of the lumbar spine as stated. 2. Visualized urinary bladder is somewhat distended. Electronically signed by: Johnie Collier MD (11/13/2017 3:16 PM) [id number]
[2017-11-13 15:21] LABS: BACTERIA,URINE 0 /HPF (0-FEW); RBC,URINE OCC /HPF (0-2); SQUAMOUS EPITHELIAL CELL,UR MOD /LPF; WBC,URINE OCC /HPF (0-4)
--- NOTE | 2017-11-13 15:28 | RAD ---
Examination: CT head and cervical spine without contrast Exposure: One or more of the following individualized dose reduction techniques were utilized for this examination: 1. Automated exposure control 2. Adjustment of the mA and/or kV according to patient size 3. Use of iterative reconstruction technique CT HEAD INDICATION: FALL, HEAD, NECK AND BACK PAIN, PRIORS SENT, DEMENTIA, DIFFICULTY HOLDING STILL COMPARISON: None Available. TECHNIQUE: 5 mm contiguous axial images were obtained from the skull base to the vertex in both bone and soft tissue algorithm. FINDINGS: Mild bilateral periventricular white matter hypodensities likely chronic small vessel ischemic disease. No evidence of acute intracranial hemorrhage. No extra-axial fluid collections. No mass effect or midline shift. Ventricular size is appropriate. Basal cisterns are patent. No fractures identified.Howell-white differentiation is preserved.Globes and orbits are within normal limits. Paranasal sinuses and mastoid air cells are clear. IMPRESSION: No acute intracranial findings. CT CERVICAL SPINE INDICATION: FALL, HEAD, NECK AND BACK PAIN, PRIORS SENT, DEMENTIA, DIFFICULTY HOLDING STILL COMPARISON: None Available. Technique: 2.5 mm contiguous axial images were obtained from the skull base through the cervicothoracic junction in both bone and soft tissue algorithm. Additional sagittal and coronal reconstructions were also performed. FINDINGS: Vertebral body heights are maintained. There is straightening of normal cervical lordosis. The lateral masses of C1 are aligned upon C2. No acute fracture cervical spine. Moderate intervertebral disc height loss identified throughout the cervical spine most severe at C6-C7 vertebral level with small anterior and posterior osteophyte formation. Disc bulges identified throughout the cervical spine most at C5-C6, C6-C7 vertebral levels. The paraspinous soft tissues are unremarkable. Visualized intracranial contents are unremarkable. Lung apices are clear. Partially visualized comminuted fractures of the medial right clavicle identified. IMPRESSION: 1. No acute fracture of the cervical spine. Correlate clinically. 2. Partially visualized comminuted fracture of the medial right clavicle again identified. Electronically signed by: Gustavo Joyce MD (11/13/2017 3:25 PM) [id number]
--- NOTE | 2017-11-13 15:30 | PDOC1 ---
History and Physical Date of Admission Date of Admission DATE: 11/13/17 TIME: 15:25 Identification/Chief Complaint Chief Complaint fall Source Source: Caregiver, Chart review, Patient History of Present Illness History of Present Illness 72-year-old female brought in by concerned son, she lives with the son , brought in because of multiple falls in a short span of time. She ambulates with cane or walker prn. Last fall was within the week, went here at [facility] was discharged home on pain medicines but then fell afterwards. She did sustain a RT clavicular fracture the last fall. Luckily she is not on any blood thinners, I do not appreciate any brusing visibly or grossly, NO presyncopal sxs, no LOC or trauma to head. She does hurt on bilateral shoulders more so on the left than on the right. Left shoulder x-rays negative for fx. The rest of the scans are still pending. I failed to address the CODE STATUS with the patient and son , will try next time. She seems very anxious and fidgety. She does have history of restless leg syndrome on lots of medications at home. I have reconciled her home meds. Blood pressure on the high side. The rest of the labs okay. We are admitting for placement. She is agreeable to SNU though she had a bad experience in the past. She would like to know which skilled place she will be going to. Past Medical History Cardiovascular: CAD, HTN, Hyperlipidemia, Other CENTRAL NERVOUS SYSTEM: CVA, Other GI: GERD Heme/Onc: Anemia NOS Hepatobiliary: No pertinent hx Psych: Anxiety, Depression Musculoskeletal: low back pain, Osteoarthritis, Other Rheumatologic: Fibromyalgia Infectious disease: No pertinent hx Renal/: No pertinent hx Endocrine: Diabetes Past Surgical History Past Surgical History: Pacemaker, Cataract Removal Family History Family History: Diabetes, Hypertension, Family History Unknown Social History Smoke: No ALCOHOL: none Drugs: None Current Problem List Problem List Problems Medical Problems: (1) Fall from standing Status: Acute (2) Lumbar contusion Status: Acute Current Medications Current Medications Current Medications Fentanyl Citrate (Fentanyl 2ml Vial) 50 mcg 1X ONCE IM ; Start 11/13/17 at 14: 00; Stop 11/13/17 at 14:02; Status DC Ondansetron HCl (Zofran) 4 mg PRN Q6HRS PRN IV NAUSEA/VOMITING; Start 11/13/17 at 15:00 Prochlorperazine Edisylate (Compazine) 10 mg PRN Q6HRS PRN IV NAUSEA/VOMITING 1ST CHOICE; Start 11/13/17 at 15:00 Prochlorperazine (Compazine) 25 mg PRN Q12HR PRN CT NAUSEA/VOMITING; Start at 15:00 Al Hydroxide/Mg Hydroxide (Mylanta Plus Xs) 30 ml PRN Q3HRS PRN PO HEARTBURN / GAS; Start 11/13/17 at 15:00 Calcium Carbonate/ Glycine (Tums) 500 mg PRN Q3HRS PRN PO UPSET STOMACH; Start 11/13/17 at 15:00 Oxycodone HCl (Roxicodone) 5 mg PRN Q3HRS PRN PO PAIN SEVERE; Start 11/13/17 at 15:00 Morphine Sulfate (Morphine Sulfate) 1 mg PRN Q1HR PRN IV PAIN MILD; Start 11/13 at 15:00 Ketorolac Tromethamine (Toradol 15mg Vial) 15 mg PRN Q6HRS PRN IV INFLAMMATION/ PAIN PREVENTION; Start 11/13/17 at 15:00; Stop 11/18/17 at 14:59 Acetaminophen (Tylenol) 650 mg PRN Q6HRS PRN PO Headaches, Temp > 101.5F; Start 11/13/17 at 15:00 Ibuprofen (Motrin) 400 mg PRN Q6HRS PRN PO MILD PAIN; Start 11/13/17 at 15:00 Docusate Sodium (Colace) 100 mg BID PO ; Start 11/13/17 at 21:00 Magnesium Hydroxide (Milk Of Magnesia) 2,400 mg PRN Q12HR PRN PO CONSTIPATION; Start 11/13/17 at 15:00 Bisacodyl (Dulcolax Supp) [address] CONSTIPATION; Start 11/13/17 at 15:00 Enoxaparin Sodium (Lovenox 40mg Syringe) 40 mg Q24H SQ ; Start 11/13/17 at 15:00 ; Status UNV Clonidine HCl (Catapres) 0.1 mg PRN Q1HR PRN PO HYPERTENSION, SEE COMMENTS; Start 11/13/17 at 15:00; Status UNV Alprazolam (Xanax) 0.5 mg PRN BID PRN PO ANXIETY / AGITATION; Start 11/13/17 at 15:15; Status UNV Atorvastatin Calcium (Lipitor) 10 mg HS PO ; Start 11/13/17 at 21:00; Status UNV Duloxetine HCl (Cymbalta) 30 mg DAILY PO ; Start 11/14/17 at 09:00; Status UNV Gemfibrozil (Lopid) 600 mg BID PO ; Start 11/13/17 at 21:00; Status UNV Acetaminophen/ Hydrocodone Bitart (Lortab 5/325) 1 tab PRN Q4HRS PRN PO BREAKTHROUGH PAIN; Start 11/13/17 at 15:15; Status UNV Labetalol HCl (Trandate) 100 mg DAILY PO ; Start 11/14/17 at 09:00; Status UNV Oxycodone/ Acetaminophen (Percocet 5/325) 1 tab Q6HRS PRN PO PAIN; Start at 15:15; Status UNV Pantoprazole Sodium (Protonix) 40 mg QHS PO ; Start 11/13/17 at 21:00; Status UNV Temazepam (Restoril) 30 mg HS PRN PO INSOMNIA; Start 11/13/17 at 15:15; Status UNV Non-Formulary Medication (Bupropion Hcl (Bupropion Xl)) 1 tab DAILYWBKFT PO ; Start 11/14/17 at 08:00; Status UNV Non-Formulary Medication (Cholecalciferol (Vitamin D3) (Vitamin D)) 50,000 unit QSU PO ; Start 11/17/17 at 16:00; Status UNV Non-Formulary Medication (Gabapentin ) 300 mg DAILY16 PO ; Start 11/13/17 at 16: 00; Status UNV Non-Formulary Medication (Gabapentin ) 600 mg HS PO ; Start 11/13/17 at 21:00; Status UNV Non-Formulary Medication (Insulin Aspart (Novolog Flexpen)) TIDWMEALS SQ ; Start 11/13/17 at 17:00; Status UNV Non-Formulary Medication (Insulin Detemir (Levemir Flextouch)) 1 unit UD SQ ; Start 11/13/17 at 15:15; Status UNV Non-Formulary Medication (Lactobacillus Acidophilus (Probiotic)) 1 each BID PO ; Start 11/13/17 at 21:00; Status UNV Non-Formulary Medication (Loperamide HCl (Imodium A-D)) 2 mg WEEKLY PO ; Start 11/20/17 at 09:00; Status UNV Non-Formulary Medication (Mirtazapine ) 1 tab QHS PO ; Start 11/13/17 at 21:00; Status UNV Non-Formulary Medication (Ropinirole Hcl (Requip)) 1 tab QHS PO ; Start at 21:00; Status UNV Non-Formulary Medication (Tizanidine Hcl (Zanaflex)) 1 tab PRN TID PRN PO MUSCLE SPASMS; Start 11/13/17 at 15:15; Status UNV Insulin Human Lispro (HumaLOG) 0-9 UNITS TIDWMEALS SQ ; Start 11/13/17 at 17:00 ; Status UNV Dextrose (Dextrose 50%-Water Syringe) 12.5 gm PRN Q15MIN PRN IV SEE COMMENTS; Start 11/13/17 at 15:15; Status UNV Active Scripts Active Percocet 5-325 Mg Tablet (Oxycodone/Acetaminophen) 1 Each Tablet 1-2 Each PO Q6HRS PRN pain Levemir Flextouch (Insulin Detemir) 100 Unit/1 Ml Insuln.pen 1 Unit SQ UD 40 units before breakfast, 25 units before bedtime Novolog Flexpen (Insulin Aspart) 100 Unit/1 Ml Insuln.pen 0 Units SQ TIDWMEALS Probiotic (Lactobacillus Acidophilus) 1 Each Capsule 1 Each PO BID Flagyl (Metronidazole) 500 Mg Tablet 500 Mg PO TID Cipro (Ciprofloxacin Hcl) 500 Mg Tablet 1 Tab PO BID Reported Gemfibrozil 600 Mg Tablet 1 Tab PO BID Imodium A-D (Loperamide HCl) 2 Mg Capsule 2 Mg PO WEEKLY Labetalol Hcl 100 Mg Tablet 1 Tab PO DAILY Gabapentin 600 Mg Tablet 600 Mg PO HS Gabapentin 300 Mg Capsule 300 Mg PO DAILY16 Bupropion Xl (Bupropion Hcl) 300 Mg Tab.er.24h 1 Tab PO DAILYWBKFT Requip (Ropinirole Hcl) 0.5 Mg Tablet 1 Tab PO QHS Cymbalta (Duloxetine Hcl) 30 Mg Capsule.dr 1 Cap PO DAILY Mirtazapine 15 Mg Tablet 1 Tab PO QHS Zanaflex (Tizanidine Hcl) 4 Mg Tablet 1-2 Tab PO PRN TID PRN Last dose given yesterday May take again when needed Temazepam 15 Mg Capsule 30 Mg PO HS PRN Received dose last night Take tonight if needed Vitamin D (Cholecalciferol (Vitamin D3)) 10,000 Unit Capsule 50,000 Unit PO QSU Not given on this admission Take when normally scheduled Atorvastatin Calcium 10 Mg Tablet 10 Mg PO HS Not given on this admission Take when needed Pantoprazole Sodium 40 Mg Tablet.dr 1 Tab PO QHS Received dose last night Take again tonight Alprazolam 1 Mg Tablet 0.5-1 Tab PO PRN BID PRN Not given on this admission Take when needed [place] 5-325 Tablet (Acetaminophen/Hydrocodone Bitart) 1 Each Tablet 1 Tab PO PRN Q4HRS PRN Given dose at 1:45 pm May take again after 9:45 Allergies Allergies: Coded Allergies: pramipexole (Verified Allergy, Severe, renal failure, 02/13/17) Sulfa (Sulfonamide Antibiotics) (Verified Allergy, Intermediate, 02/13/17) clavulanic acid (Verified Allergy, Intermediate, 02/13/17) ROS Review of System Very anxious, hurts all over, but no chest pain, no abdominal pain, mostly musculoskeletal complaints The rest of ROS 14 point negative Physical Exam General: Alert, Oriented X3, No acute distress, Other (very anxious and fidgety but not in acute distress) HEENT: PERRLA Lungs: Clear to auscultation, Normal air movement Heart: S1S2, RRR, no thrills, no rubs, no gallops, no murmurs Cardiovascular: S1, S2 Breasts: Normal, Rt breast nml w/o mass, Lt breast nml w/o mass, Nipples normal Rectal Exam: not examined PELVIC: Nml ext genitalia Extremities: No clubbing, No cyanosis, Other (some mild lower extremity edema + 1 only) Skin: No rashes, No breakdown, No significant lesion, Other Neuro: Normal gait, Normal speech, Strength at 5/5 X4 ext, Normal tone, Sensation intact, Cranial nerves 3-12 NL, Reflexes 2+ Psych/Mental Status: Mental status NL, Mood NL Vitals Vitals Vital Signs Date Time Temp Pulse Resp B/P (MAP) Pulse Ox O2 Delivery O2 Flow Rate FiO2 11/13/17 13:45 97.8 81 18 161/80 (107) 97 Room Air 97.8 Labs Labs Laboratory Tests Test 11/13/17 14:23 Urine Collection Type Unknown Urine Color Yellow Urine Clarity Clear Urine pH 6.0 Urine Specific [place] 1.010 Urine Protein Negative mg/dL (NEG-TRACE) Urine Glucose (UA) 500 mg/dL (NEG) Urine Ketones (Stick) Negative mg/dL (NEG) Urine Blood Trace (NEG) Urine Nitrite Negative (NEG) Urine Bilirubin Negative (NEG) Urine Urobilinogen Dipstick 0.2 mg/dL (0.2 mg/dL) Urine Leukocyte Esterase Trace (NEG) Urine RBC Occ /HPF (0-2) Urine WBC Occ /HPF (0-4) Urine Squamous Epithelial Cells Mod /LPF Urine Bacteria 0 /HPF (0-FEW) Laboratory Tests Test 11/13/17 14:23 Urine Collection Type Unknown Urine Color Yellow Urine Clarity Clear Urine pH 6.0 Urine Specific [place] 1.010 Urine Protein Negative mg/dL (NEG-TRACE) Urine Glucose (UA) 500 mg/dL (NEG) Urine Ketones (Stick) Negative mg/dL (NEG) Urine Blood Trace (NEG) Urine Nitrite Negative (NEG) Urine Bilirubin Negative (NEG) Urine Urobilinogen Dipstick 0.2 mg/dL (0.2 mg/dL) Urine Leukocyte Esterase Trace (NEG) Urine RBC Occ /HPF (0-2) Urine WBC Occ /HPF (0-4) Urine Squamous Epithelial Cells Mod /LPF Urine Bacteria 0 /HPF (0-FEW) VTE Prophylaxis Ordered VTE Prophylaxis Devices: Yes VTE Pharmacological Prophylaxi: Yes Assessment/Plan Assessment/Plan Frequent falls Geriatric Fall risk Overweight, BMI 33 Anxiety NOS History fibromyalgia History of bad peripheral neuropathy Hypertension, CAD-chronic stable Plan: Admit 2 midnights Check a sedimentation rate TSH, B12 PT OT Fall risk Admitted for placement Okay for regular diet I have resume home meds Xanax when necessary Pain medicine Social work office for SNU screen Full code for now I have seen at ER and discussed with son at bedside Await other scans Check UA MYRIAM AMES MD Nov 13, 2017 15:30
--- NOTE | 2017-11-13 15:35 | RAD ---
CT THORACIC SPINE WO CONTRAST Indication: Fall, back pain Technique: Noncontrast CT imaging was performed of the thoracic spine, multiplanar reconstruction images submitted. One or more of the following individualized dose reduction techniques were utilized for this examination: 1. Automated exposure control 2. Adjustment of the mA and/or kV according to patient size 3. Use of iterative reconstruction technique. Comparison: September 22, 2013 Findings: There is some motion degradation. Thoracic vertebral body stature and AP alignment are overall preserved. No acute thoracic spine fracture is identified. Thoracic spinal stimulator leads terminate at the inferior aspect of T6. There is degenerative disc disease greatest T8-T9, T9-T10, T11-12. There is also degenerative disc disease and spondylosis at the visualized C6-7 level. There is multilevel facet degenerative change resulting in neural foramina compromise, moderate to severe narrowing on the left T7-8, T9-10, T10-11, T11-12 and on the right at T8-T9 and T10-11. There is also narrowing of the neural foramina and the visualized superior cervical spine such as left greater than right at C7-T1, on the left at C6-7, bilaterally at C5-6, C4-5, C3-4. There is left electronic cardiac device. IMPRESSION: 1. No acute thoracic spine fracture is identified by CT. 2. There is multilevel cervical and thoracic neural foramina compromise. Electronically signed by: Johnie Collier MD (11/13/2017 3:32 PM) [id number]
[2017-11-13] MEDS ORDERED: MORPHINE SULFATE 4 MG/ML VIAL. IV PRN (15:45)
[2017-11-13] MEDS ORDERED: GABAPENTIN 300 MG CAPSULE. PO SCH (16:00)
[2017-11-13] MEDS ORDERED: ENOXAPARIN 40 MG/0.4 ML SYRINGE. SQ SCH (16:00)
[2017-11-13 16:05] LABS: BARBITURATES NEG (NEG); BENZODIAZEPINES NEG (NEG); CANNABINOIDS NEG (NEG); COCAINE NEG (NEG); METHADONE NEG (NEG); OPIATES NEG (NEG); PHENCYCLIDINE NEG (NEG)
[2017-11-13 16:10] LABS: AMPHETAMINE/METHAMPHETAMINE NEG (NEG)
[2017-11-13] MEDS ORDERED: LOPERAMIDE 2 MG CAPSULE PO PRN (16:45)
[2017-11-13] MEDS ORDERED: tiZANidine 4 MG TABLET. PO PRN (16:45)
[2017-11-13] MEDS ORDERED: NON FORMULARY ITEM (Insulin Aspart (Novolog Flexpen) 0 UNITS) SQ SCH (17:00)
[2017-11-13] MEDS: INSULIN LISPRO 300 UNITS/3 ML INSULN.PEN. SQ SCH (17:09)
[2017-11-13] MEDS ORDERED: MAGN400T22 PO (18:04)
[2017-11-13] MEDS ORDERED: POTA10TA12 PO (18:04)
[2017-11-13] MEDS ORDERED: INSU100I17 SQ (18:04)
[2017-11-13] MEDS ORDERED: DILT120C80 PO (18:04)
[2017-11-13] MEDS ORDERED: ERGO500027 PO (18:04)
[2017-11-13] MEDS ORDERED: FURO40TA4 PO (18:04)
[2017-11-13] MEDS ORDERED: ROPI0.5T2 PO (18:04)
[2017-11-13] MEDS: oxyCODONE/APAP 5/325 1 TAB TABLET PO PRN (18:13)
[2017-11-13 18:27] LABS: BASO % 1 % (0-3); EOS # 0.1 x10^3/uL (0.0-0.7); EOS % 2 % (0-3); HEMATOCRIT 36.9 % (36.0-47.0); HEMOGLOBIN 12.7 g/dL (12.0-15.5); LYMPH % 30 % (24-48); MEAN CORPUSCULAR HEMOGLOBIN 30 pg (25-35); MEAN CORPUSCULAR HGB CONC 34 g/dL (31-37); MEAN CORPUSCULAR VOLUME 86 fL (79-100); MONO # 0.4 x10^3/uL (0.0-1.1); MONO % 7 % (0-9); NEUT # 4.1 x10^3uL (1.8-7.7); NEUT % 61 % (31-73); PLATELET COUNT 231 x10^3/uL (140-400); RED BLOOD COUNT 4.29 x10^6/uL (3.50-5.40); RED CELL DISTRIBUTION WIDTH 13.2 % (11.5-14.5); WHITE BLOOD COUNT 6.8 x10^3/uL (4.0-11.0)
[2017-11-13 18:35] LABS: CALCIUM 9.1 mg/dL (8.5-10.1); GFR 54.8; POTASSIUM 3.1 mmol/L (3.5-5.1)
[2017-11-13 18:36] LABS: PROTHROMBIN TIME PATIENT 14.2 SEC (11.7-14.0)
[2017-11-13 18:41] LABS: ALBUMIN 3.4 g/dL (3.4-5.0); ALBUMIN/GLOBULIN RATIO 0.8 (1.0-1.7); TOTAL BILIRUBIN 0.5 mg/dL (0.2-1.0); TOTAL PROTEIN 7.5 g/dL (6.4-8.2)
[2017-11-13 18:43] LABS: ALBUMIN 3.4 g/dL (3.4-5.0); MAGNESIUM 1.5 mg/dL (1.8-2.4)
[2017-11-13 19:00] VITALS: BP 140/76
[2017-11-13] MEDS: TEMAZEPAM 15 MG CAPSULE PO SCH (20:27)
[2017-11-13] MEDS: MIRTAZAPINE 15 MG TABLET PO SCH (20:27)
[2017-11-13] MEDS: rOPINIRole 0.25 MG TABLET. PO SCH (20:27)
[2017-11-13] MEDS: HYDROcodone/APAP 5/325MG 1 TAB TABLET PO PRN (20:27)
[2017-11-13] MEDS: ATORVASTATIN CALCIUM 10 MG TABLET. PO SCH (20:27)
[2017-11-13] MEDS: PANTOPRAZOLE 40 MG TABLET.DR. PO SCH (20:27)
[2017-11-13] MEDS: DOCUSATE SODIUM 100 MG CAPSULE. PO SCH (20:28)
[2017-11-13] MEDS: LACTOBACILLUS RHAMNOSUS GG 1 CAPSULE. PO SCH (20:28)
[2017-11-13] MEDS: GABAPENTIN 300 MG CAPSULE. PO SCH (20:28)
[2017-11-13] MEDS: INSULIN GLARGINE 300 UNITS/3 ML INSULN.PEN. SQ SCH (20:34)
[2017-11-13] MEDS ORDERED: GEMFIBROZIL 600 MG TABLET. PO SCH (21:00)
[2017-11-13 23:00] VITALS: BP 124/68
[2017-11-14 03:00] VITALS: BP 121/67
[2017-11-14] MEDS: HYDROcodone/APAP 5/325MG 1 TAB TABLET PO PRN ×4 (04:02→20:53)
[2017-11-14 07:00] VITALS: BP 130/51
[2017-11-14] MEDS: INSULIN GLARGINE 300 UNITS/3 ML INSULN.PEN. SQ SCH ×2 (08:09→21:00)
[2017-11-14] MEDS: INSULIN LISPRO 300 UNITS/3 ML INSULN.PEN. SQ SCH ×3 (08:09→17:26)
[2017-11-14 08:16] LABS: BASO # 0.1 x10^3/uL (0.0-0.2); BASO % 1 % (0-3); EOS # 0.2 x10^3/uL (0.0-0.7); EOS % 3 % (0-3); HEMATOCRIT 37.6 % (36.0-47.0); HEMOGLOBIN 12.7 g/dL (12.0-15.5); LYMPH # 2.3 x10^3/uL (1.0-4.8); LYMPH % 33 % (24-48); MEAN CORPUSCULAR HEMOGLOBIN 29 pg (25-35); MEAN CORPUSCULAR HGB CONC 34 g/dL (31-37); MEAN CORPUSCULAR VOLUME 87 fL (79-100); MONO # 0.5 x10^3/uL (0.0-1.1); MONO % 7 % (0-9); NEUT # 3.9 x10^3uL (1.8-7.7); NEUT % 56 % (31-73); PLATELET COUNT 264 x10^3/uL (140-400); RED BLOOD COUNT 4.35 x10^6/uL (3.50-5.40); RED CELL DISTRIBUTION WIDTH 13.4 % (11.5-14.5)
[2017-11-14 08:24] LABS: CALCIUM 8.8 mg/dL (8.5-10.1); GFR 54.8; POTASSIUM 3.1 mmol/L (3.5-5.1)
[2017-11-14] MEDS ORDERED: LABETALOL HCL 100 MG TABLET. PO SCH (09:00)
[2017-11-14] MEDS: DULoxetine HCL 30 MG CAPSULE.DR PO SCH (09:12)
[2017-11-14] MEDS: DOCUSATE SODIUM 100 MG CAPSULE. PO SCH ×2 (09:13→21:00)
[2017-11-14] MEDS: FUROSEMIDE 40 MG TABLET. PO SCH (09:13)
[2017-11-14] MEDS: MAGNESIUM OXIDE 400 MG TABLET PO SCH (09:13)
[2017-11-14] MEDS: POTASSIUM CHLORIDE 10 MEQ TABLET.ER. PO SCH (09:13)
[2017-11-14] MEDS: LACTOBACILLUS RHAMNOSUS GG 1 CAPSULE. PO SCH ×2 (09:13→20:52)
[2017-11-14] MEDS: buPROPion XL 150 MG TAB.ER.24H. PO SCH (09:13)
[2017-11-14] MEDS ORDERED: CITALOPRAM 10 MG TABLET. PO SCH (09:30)
--- NOTE | 2017-11-14 10:30 | PDOC ---
PROGRESS NOTES Chief Complaint Chief Complaint Frequent falls Bloody BM today, 10/28/17 Urinary retention, 800 mL PVR Hx partial colectomy for diverticulitis - 10 yrs ago REcent RT clavicular fx - arm sling? Geriatric Fall risk Overweight, BMI 33 Anxiety NOS History fibromyalgia History of bad peripheral neuropathy Hypertension, CAD-chronic stable History of Present Illness History of Present Illness Few Issues today Bloody BM or bloody urine-patient cannot say if it's coming from the urine or from the rectum But there was a lot of blood and not streaks only as witnessed by staff Patient denies any abdominal pain. Patient does have history of diverticulosis and diverticulitis, partial colectomy a decade ago Last colonoscopy was within this year, routine, results otherwise okay (June) CBC and vital signs okay She did have a arm sling, but physiatry instructed that is okay not to use arm sling-recent right clavicular fracture and has an outpatient appointment with Dr. Bruner-prefers to see him while in-house No UTI on urine analysis -son was asking re this Admitted for SNU also they are agreeable to rehabilitation. Plan: Check Hemoccult Check abdominal pelvis with oral contrast CT - re the above bloody BM GI consult Dr. Bruner consult for the rt clavicular fx Would recommend Arm sling for 6-8 weeks... Hold lovenox for now STraight cath now - 800 cc pVR PT.OT SW SNU screen Vitals Vitals Vital Signs Date Time Temp Pulse Resp B/P (MAP) Pulse Ox O2 Delivery O2 Flow Rate FiO2 11/14/17 09:14 Room Air 11/14/17 09:13 78 130/51 11/14/17 07:00 97.9 92 97.9 11/14/17 03:00 17 Physical Exam General: Alert, Oriented X3, No acute distress, Other (very anxious and fidgety but not in acute distress) Lungs: Clear Extremities: No clubbing, No cyanosis, Other (some mild lower extremity edema + 1 only) Skin: No rashes, No breakdown, No significant lesion, Other Labs LABS Laboratory Tests Test 11/13/17 14:23 11/13/17 17:01 11/13/17 18:10 11/14/17 07:55 Urine Collection Type Unknown Urine Color Yellow Urine Clarity Clear Urine pH 6.0 Urine Specific [place] 1.010 Urine Protein Negative mg/dL (NEG-TRACE) Urine Glucose (UA) 500 mg/dL (NEG) Urine Ketones (Stick) Negative mg/dL (NEG) Urine Blood Trace (NEG) Urine Nitrite Negative (NEG) Urine Bilirubin Negative (NEG) Urine Urobilinogen Dipstick 0.2 mg/dL (0.2 mg/dL) Urine Leukocyte Esterase Trace (NEG) Urine RBC Occ /HPF (0-2) Urine WBC Occ /HPF (0-4) Urine Squamous Epithelial Cells Mod /LPF Urine Bacteria 0 /HPF (0-FEW) Urine Opiates Screen Neg (NEG) Urine Methadone Screen Neg (NEG) Urine Barbiturates Neg (NEG) Urine Phencyclidine Screen Neg (NEG) Urine Amphetamine/Methamphetamine Neg (NEG) Urine Benzodiazepines Screen Neg (NEG) Urine Cocaine Screen Neg (NEG) Urine Cannabinoids Screen Neg (NEG) Urine Ethyl Alcohol Neg (NEG) Glucose (Fingerstick) 274 mg/dL (70-99) White Blood Count 6.8 x10^3/uL (4.0-11.0) 7.0 x10^3/uL (4.0-11.0) Red Blood Count 4.29 x10^6/uL (3.50-5.40) 4.35 x10^6/uL (3.50-5.40) Hemoglobin 12.7 g/dL (12.0-15.5) 12.7 g/dL (12.0-15.5) Hematocrit 36.9 % (36.0-47.0) 37.6 % (36.0-47.0) Mean Corpuscular Volume 86 fL (79-100) 87 fL (79-100) Mean Corpuscular Hemoglobin 30 pg (25-35) 29 pg (25-35) Mean Corpuscular Hemoglobin Concent 34 g/dL (31-37) 34 g/dL (31-37) Red Cell Distribution Width 13.2 % (11.5-14.5) 13.4 % (11.5-14.5) Platelet Count 231 x10^3/uL (140-400) 264 x10^3/uL (140-400) Neutrophils (%) (Auto) 61 % (31-73) 56 % (31-73) Lymphocytes (%) (Auto) 30 % (24-48) 33 % (24-48) Monocytes (%) (Auto) 7 % (0-9) 7 % (0-9) Eosinophils (%) (Auto) 2 % (0-3) 3 % (0-3) Basophils (%) (Auto) 1 % (0-3) 1 % (0-3) Neutrophils # (Auto) 4.1 x10^3uL (1.8-7.7) 3.9 x10^3uL (1.8-7.7) Lymphocytes # (Auto) 2.0 x10^3/uL (1.0-4.8) 2.3 x10^3/uL (1.0-4.8) Monocytes # (Auto) 0.4 x10^3/uL (0.0-1.1) 0.5 x10^3/uL (0.0-1.1) Eosinophils # (Auto) 0.1 x10^3/uL (0.0-0.7) 0.2 x10^3/uL (0.0-0.7) Basophils # (Auto) 0.0 x10^3/uL (0.0-0.2) 0.1 x10^3/uL (0.0-0.2) Erythrocyte Sedimentation Rate 48 (0-25) Prothrombin Time 14.2 SEC (11.7-14.0) Prothromb Time International Ratio 1.2 (0.8-1.1) Sodium Level 135 mmol/L (136-145) 139 mmol/L (136-145) Potassium Level 3.1 mmol/L (3.5-5.1) 3.1 mmol/L (3.5-5.1) Chloride Level 98 mmol/L (98-107) 100 mmol/L (98-107) Carbon Dioxide Level 33 mmol/L (21-32) 31 mmol/L (21-32) Anion Gap 4 (6-14) 8 (6-14) Blood Urea Nitrogen 10 mg/dL (7-20) 10 mg/dL (7-20) Creatinine 1.0 mg/dL (0.6-1.0) 1.0 mg/dL (0.6-1.0) Estimated GFR (Cockcroft-Gault) 54.8 54.8 BUN/Creatinine Ratio 10 (6-20) Glucose Level 327 mg/dL (70-99) 154 mg/dL (70-99) Calcium Level 9.1 mg/dL (8.5-10.1) 8.8 mg/dL (8.5-10.1) Phosphorus Level 4.0 mg/dL (2.6-4.7) Magnesium Level 1.5 mg/dL (1.8-2.4) Total Bilirubin 0.5 mg/dL (0.2-1.0) Aspartate Amino Transf (AST/SGOT) 27 U/L (15-37) Alanine Aminotransferase (ALT/SGPT) 27 U/L (14-59) Alkaline Phosphatase 122 U/L (46-116) Total Protein 7.5 g/dL (6.4-8.2) Albumin 3.4 g/dL (3.4-5.0) Albumin/Globulin Ratio 0.8 (1.0-1.7) Vitamin B12 Level 340 pg/mL (247-911) Ethyl Alcohol Level < 10 mg/dL (0-10) Test 11/14/17 08:04 Glucose (Fingerstick) 155 mg/dL (70-99) Review of Systems Review of Systems bloody BM, right shoulder, clavicular pain otherwise the rest of ROS negative Assessment and Plan Assessmemt and Plan Problems Medical Problems: (1) Fall from standing Status: Acute (2) Lumbar contusion Status: Acute Comment Review of Relevant I have reviewed the following items lucy (where applicable) has been applied. Labs Laboratory Tests Test 11/13/17 14:23 11/13/17 17:01 11/13/17 18:10 11/14/17 07:55 Urine Collection Type Unknown Urine Color Yellow Urine Clarity Clear Urine pH 6.0 Urine Specific [place] 1.010 Urine Protein Negative mg/dL (NEG-TRACE) Urine Glucose (UA) 500 mg/dL (NEG) Urine Ketones (Stick) Negative mg/dL (NEG) Urine Blood Trace (NEG) Urine Nitrite Negative (NEG) Urine Bilirubin Negative (NEG) Urine Urobilinogen Dipstick 0.2 mg/dL (0.2 mg/dL) Urine Leukocyte Esterase Trace (NEG) Urine RBC Occ /HPF (0-2) Urine WBC Occ /HPF (0-4) Urine Squamous Epithelial Cells Mod /LPF Urine Bacteria 0 /HPF (0-FEW) Urine Opiates Screen Neg (NEG) Urine Methadone Screen Neg (NEG) Urine Barbiturates Neg (NEG) Urine Phencyclidine Screen Neg (NEG) Urine Amphetamine/Methamphetamine Neg (NEG) Urine Benzodiazepines Screen Neg (NEG) Urine Cocaine Screen Neg (NEG) Urine Cannabinoids Screen Neg (NEG) Urine Ethyl Alcohol Neg (NEG) Glucose (Fingerstick) 274 mg/dL (70-99) White Blood Count 6.8 x10^3/uL (4.0-11.0) 7.0 x10^3/uL (4.0-11.0) Red Blood Count 4.29 x10^6/uL (3.50-5.40) 4.35 x10^6/uL (3.50-5.40) Hemoglobin 12.7 g/dL (12.0-15.5) 12.7 g/dL (12.0-15.5) Hematocrit 36.9 % (36.0-47.0) 37.6 % (36.0-47.0) Mean Corpuscular Volume 86 fL (79-100) 87 fL (79-100) Mean Corpuscular Hemoglobin 30 pg (25-35) 29 pg (25-35) Mean Corpuscular Hemoglobin Concent 34 g/dL (31-37) 34 g/dL (31-37) Red Cell Distribution Width 13.2 % (11.5-14.5) 13.4 % (11.5-14.5) Platelet Count 231 x10^3/uL (140-400) 264 x10^3/uL (140-400) Neutrophils (%) (Auto) 61 % (31-73) 56 % (31-73) Lymphocytes (%) (Auto) 30 % (24-48) 33 % (24-48) Monocytes (%) (Auto) 7 % (0-9) 7 % (0-9) Eosinophils (%) (Auto) 2 % (0-3) 3 % (0-3) Basophils (%) (Auto) 1 % (0-3) 1 % (0-3) Neutrophils # (Auto) 4.1 x10^3uL (1.8-7.7) 3.9 x10^3uL (1.8-7.7) Lymphocytes # (Auto) 2.0 x10^3/uL (1.0-4.8) 2.3 x10^3/uL (1.0-4.8) Monocytes # (Auto) 0.4 x10^3/uL (0.0-1.1) 0.5 x10^3/uL (0.0-1.1) Eosinophils # (Auto) 0.1 x10^3/uL (0.0-0.7) 0.2 x10^3/uL (0.0-0.7) Basophils # (Auto) 0.0 x10^3/uL (0.0-0.2) 0.1 x10^3/uL (0.0-0.2) Erythrocyte Sedimentation Rate 48 (0-25) Prothrombin Time 14.2 SEC (11.7-14.0) Prothromb Time International Ratio 1.2 (0.8-1.1) Sodium Level 135 mmol/L (136-145) 139 mmol/L (136-145) Potassium Level 3.1 mmol/L (3.5-5.1) 3.1 mmol/L (3.5-5.1) Chloride Level 98 mmol/L (98-107) 100 mmol/L (98-107) Carbon Dioxide Level 33 mmol/L (21-32) 31 mmol/L (21-32) Anion Gap 4 (6-14) 8 (6-14) Blood Urea Nitrogen 10 mg/dL (7-20) 10 mg/dL (7-20) Creatinine 1.0 mg/dL (0.6-1.0) 1.0 mg/dL (0.6-1.0) Estimated GFR (Cockcroft-Gault) 54.8 54.8 BUN/Creatinine Ratio 10 (6-20) Glucose Level 327 mg/dL (70-99) 154 mg/dL (70-99) Calcium Level 9.1 mg/dL (8.5-10.1) 8.8 mg/dL (8.5-10.1) Phosphorus Level 4.0 mg/dL (2.6-4.7) Magnesium Level 1.5 mg/dL (1.8-2.4) Total Bilirubin 0.5 mg/dL (0.2-1.0) Aspartate Amino Transf (AST/SGOT) 27 U/L (15-37) Alanine Aminotransferase (ALT/SGPT) 27 U/L (14-59) Alkaline Phosphatase 122 U/L (46-116) Total Protein 7.5 g/dL (6.4-8.2) Albumin 3.4 g/dL (3.4-5.0) Albumin/Globulin Ratio 0.8 (1.0-1.7) Vitamin B12 Level 340 pg/mL (247-911) Ethyl Alcohol Level < 10 mg/dL (0-10) Test 11/14/17 08:04 Glucose (Fingerstick) 155 mg/dL (70-99) Laboratory Tests Test 11/13/17 14:23 11/13/17 17:01 11/13/17 18:10 11/14/17 07:55 Urine Collection Type Unknown Urine Color Yellow Urine Clarity Clear Urine pH 6.0 Urine Specific [place] 1.010 Urine Protein Negative mg/dL (NEG-TRACE) Urine Glucose (UA) 500 mg/dL (NEG) Urine Ketones (Stick) Negative mg/dL (NEG) Urine Blood Trace (NEG) Urine Nitrite Negative (NEG) Urine Bilirubin Negative (NEG) Urine Urobilinogen Dipstick 0.2 mg/dL (0.2 mg/dL) Urine Leukocyte Esterase Trace (NEG) Urine RBC Occ /HPF (0-2) Urine WBC Occ /HPF (0-4) Urine Squamous Epithelial Cells Mod /LPF Urine Bacteria 0 /HPF (0-FEW) Urine Opiates Screen Neg (NEG) Urine Methadone Screen Neg (NEG) Urine Barbiturates Neg (NEG) Urine Phencyclidine Screen Neg (NEG) Urine Amphetamine/Methamphetamine Neg (NEG) Urine Benzodiazepines Screen Neg (NEG) Urine Cocaine Screen Neg (NEG) Urine Cannabinoids Screen Neg (NEG) Urine Ethyl Alcohol Neg (NEG) Glucose (Fingerstick) 274 mg/dL (70-99) White Blood Count 6.8 x10^3/uL (4.0-11.0) 7.0 x10^3/uL (4.0-11.0) Red Blood Count 4.29 x10^6/uL (3.50-5.40) 4.35 x10^6/uL (3.50-5.40) Hemoglobin 12.7 g/dL (12.0-15.5) 12.7 g/dL (12.0-15.5) Hematocrit 36.9 % (36.0-47.0) 37.6 % (36.0-47.0) Mean Corpuscular Volume 86 fL (79-100) 87 fL (79-100) Mean Corpuscular Hemoglobin 30 pg (25-35) 29 pg (25-35) Mean Corpuscular Hemoglobin Concent 34 g/dL (31-37) 34 g/dL (31-37) Red Cell Distribution Width 13.2 % (11.5-14.5) 13.4 % (11.5-14.5) Platelet Count 231 x10^3/uL (140-400) 264 x10^3/uL (140-400) Neutrophils (%) (Auto) 61 % (31-73) 56 % (31-73) Lymphocytes (%) (Auto) 30 % (24-48) 33 % (24-48) Monocytes (%) (Auto) 7 % (0-9) 7 % (0-9) Eosinophils (%) (Auto) 2 % (0-3) 3 % (0-3) Basophils (%) (Auto) 1 % (0-3) 1 % (0-3) Neutrophils # (Auto) 4.1 x10^3uL (1.8-7.7) 3.9 x10^3uL (1.8-7.7) Lymphocytes # (Auto) 2.0 x10^3/uL (1.0-4.8) 2.3 x10^3/uL (1.0-4.8) Monocytes # (Auto) 0.4 x10^3/uL (0.0-1.1) 0.5 x10^3/uL (0.0-1.1) Eosinophils # (Auto) 0.1 x10^3/uL (0.0-0.7) 0.2 x10^3/uL (0.0-0.7) Basophils # (Auto) 0.0 x10^3/uL (0.0-0.2) 0.1 x10^3/uL (0.0-0.2) Erythrocyte Sedimentation Rate 48 (0-25) Prothrombin Time 14.2 SEC (11.7-14.0) Prothromb Time International Ratio 1.2 (0.8-1.1) Sodium Level 135 mmol/L (136-145) 139 mmol/L (136-145) Potassium Level 3.1 mmol/L (3.5-5.1) 3.1 mmol/L (3.5-5.1) Chloride Level 98 mmol/L (98-107) 100 mmol/L (98-107) Carbon Dioxide Level 33 mmol/L (21-32) 31 mmol/L (21-32) Anion Gap 4 (6-14) 8 (6-14) Blood Urea Nitrogen 10 mg/dL (7-20) 10 mg/dL (7-20) Creatinine 1.0 mg/dL (0.6-1.0) 1.0 mg/dL (0.6-1.0) Estimated GFR (Cockcroft-Gault) 54.8 54.8 BUN/Creatinine Ratio 10 (6-20) Glucose Level 327 mg/dL (70-99) 154 mg/dL (70-99) Calcium Level 9.1 mg/dL (8.5-10.1) 8.8 mg/dL (8.5-10.1) Phosphorus Level 4.0 mg/dL (2.6-4.7) Magnesium Level 1.5 mg/dL (1.8-2.4) Total Bilirubin 0.5 mg/dL (0.2-1.0) Aspartate Amino Transf (AST/SGOT) 27 U/L (15-37) Alanine Aminotransferase (ALT/SGPT) 27 U/L (14-59) Alkaline Phosphatase 122 U/L (46-116) Total Protein 7.5 g/dL (6.4-8.2) Albumin 3.4 g/dL (3.4-5.0) Albumin/Globulin Ratio 0.8 (1.0-1.7) Vitamin B12 Level 340 pg/mL (247-911) Ethyl Alcohol Level < 10 mg/dL (0-10) Test 11/14/17 08:04 Glucose (Fingerstick) 155 mg/dL (70-99) Medications Current Medications Fentanyl Citrate (Fentanyl 2ml Vial) 50 mcg 1X ONCE IM Last administered on at 15:27; Start 11/13/17 at 14:00; Stop 11/13/17 at 14:02; Status DC Ondansetron HCl (Zofran) 4 mg PRN Q6HRS PRN IV NAUSEA/VOMITING; Start 11/13/17 at 15:00 Prochlorperazine Edisylate (Compazine) 10 mg PRN Q6HRS PRN IV NAUSEA/VOMITING 1ST CHOICE; Start 11/13/17 at 15:00 Prochlorperazine (Compazine) 25 mg PRN Q12HR PRN DC NAUSEA/VOMITING; Start at 15:00 Al Hydroxide/Mg Hydroxide (Mylanta Plus Xs) 30 ml PRN Q3HRS PRN PO HEARTBURN / GAS; Start 11/13/17 at 15:00 Calcium Carbonate/ Glycine (Tums) 500 mg PRN Q3HRS PRN PO UPSET STOMACH; Start 11/13/17 at 15:00 Oxycodone HCl (Roxicodone) 5 mg PRN Q3HRS PRN PO PAIN SEVERE; Start 11/13/17 at 15:00 Morphine Sulfate (Morphine Sulfate) 1 mg PRN Q1HR PRN IV PAIN MILD; Start 11/13 at 15:00 Ketorolac Tromethamine (Toradol 15mg Vial) 15 mg PRN Q6HRS PRN IV INFLAMMATION/ PAIN PREVENTION; Start 11/13/17 at 15:00; Stop 11/18/17 at 14:59 Acetaminophen (Tylenol) 650 mg PRN Q6HRS PRN PO Headaches, Temp > 101.5F; Start 11/13/17 at 15:00 Ibuprofen (Motrin) 400 mg PRN Q6HRS PRN PO MILD PAIN Last administered on at 09:12; Start 11/13/17 at 15:00 Docusate Sodium (Colace) 100 mg BID PO Last administered on 11/14/17at 09:13; Start 11/13/17 at 21:00 Magnesium Hydroxide (Milk Of Magnesia) 2,400 mg PRN Q12HR PRN PO CONSTIPATION; Start 11/13/17 at 15:00 Bisacodyl (Dulcolax Supp) 10 mg PRN DAILY PRN DC CONSTIPATION; Start 11/13/17 at 15:00 Enoxaparin Sodium (Lovenox 40mg Syringe) 40 mg Q24H SQ Last administered on at 17:04; Start 11/13/17 at 16:00 Clonidine HCl (Catapres) 0.1 mg PRN Q1HR PRN PO HYPERTENSION, SEE COMMENTS; Start 11/13/17 at 15:00 Alprazolam (Xanax) 0.5 mg PRN BID PRN PO ANXIETY / AGITATION 1ST CHOICE Last administered on 11/13/17at 20:27; Start 11/13/17 at 15:15 Atorvastatin Calcium (Lipitor) 10 mg HS PO Last administered on 11/13/17at 20:27 ; Start 11/13/17 at 21:00 Duloxetine HCl (Cymbalta) 30 mg DAILY PO Last administered on 11/14/17at 09:12; Start 11/14/17 at 09:00 Gemfibrozil (Lopid) 600 mg BID PO ; Start 11/13/17 at 21:00; Stop 11/13/17 at 21 :00; Status DC Acetaminophen/ Hydrocodone Bitart (Lortab 5/325) 1 tab PRN Q4HRS PRN PO BREAKTHROUGH PAIN Last administered on 11/14/17at 08:00; Start 11/13/17 at 15:15 Labetalol HCl (Trandate) 100 mg DAILY PO ; Start 11/14/17 at 09:00; Stop at 09:00; Status DC Oxycodone/ Acetaminophen (Percocet 5/325) 1 tab PRN Q6HRS PRN PO SEVERE PAIN Last administered on 11/13/17at 18:13; Start 11/13/17 at 15:15 Pantoprazole Sodium (Protonix) 40 mg QHS PO Last administered on 11/13/17at 20: 27; Start 11/13/17 at 21:00 Temazepam (Restoril) 15 mg HS PRN PO INSOMNIA, MAY REPEAT X1; Start 11/13/17 at 15:15; Stop 11/13/17 at 18:21; Status DC Bupropion HCl (Wellbutrin Xl) 300 mg DAILY PO Last administered on 11/14/17at 09 :13; Start 11/14/17 at 09:00 Ergocalciferol (Vitamin D2) 50,000 unit WEEKLY PO ; Start 11/17/17 at 09:00; Stop 11/17/17 at 09:00; Status DC Gabapentin (Neurontin) 300 mg DAILY16 PO Last administered on 11/13/17at 17:04; Start 11/13/17 at 16:00; Stop 11/13/17 at 18:21; Status DC Gabapentin (Neurontin) 600 mg QHS PO Last administered on 11/13/17at 20:28; Start 11/13/17 at 21:00 Non-Formulary Medication (Insulin Aspart (Novolog Flexpen)) TIDWMEALS SQ ; Start 11/13/17 at 17:00; Status UNV Insulin Glargine (Lantus) 40 units DAILY SQ Last administered on 11/14/17at 08: 09; Start 11/14/17 at 09:00 Lactobacillus Rhamnosus (Culturelle) 1 cap BID PO Last administered on at 09:13; Start 11/13/17 at 21:00 Loperamide HCl (Imodium) 2 mg PRN Q15MIN PRN PO DIARRHEA; Start 11/13/17 at 16: 45 Mirtazapine (Remeron) 15 mg QHS PO Last administered on 11/13/17at 20:27; Start 11/13/17 at 21:00 Ropinirole HCl (Requip) 0.5 mg QHS PO Last administered on 11/13/17at 20:27; Start 11/13/17 at 21:00 Tizanidine HCl (Zanaflex) 4 mg PRN Q8HRS PRN PO MUSCLE SPASMS; Start 11/13/17 at 16:45 Insulin Human Lispro (HumaLOG) 0-9 UNITS TIDWMEALS SQ Last administered on 11/14at 08:09; Start 11/13/17 at 17:00 Dextrose (Dextrose 50%-Water Syringe) 12.5 gm PRN Q15MIN PRN IV SEE COMMENTS; Start 11/13/17 at 15:15 Ondansetron HCl (Zofran) 4 mg PRN Q8HRS PRN IV NAUSEA/VOMITING; Start 11/13/17 at 15:45; Stop 11/13/17 at 18:27; Status DC Morphine Sulfate (Morphine Sulfate) 4 mg PRN Q2HR PRN IV PAIN; Start 11/13/17 at 15:45; Stop 11/14/17 at 15:44 Acetaminophen (Tylenol) 650 mg PRN Q4HRS PRN PO FEVER; Start 11/13/17 at 15:45 ; Stop 11/13/17 at 18:26; Status DC Insulin Glargine (Lantus) 25 units QHS SQ Last administered on 11/13/17at 20:34 ; Start 11/13/17 at 21:00 Ergocalciferol (Vitamin D2) 50,000 unit QMTH PO ; Start 11/14/17 at 21:00 Gabapentin (Neurontin) 600 mg DAILY16 PO ; Start 11/14/17 at 16:00 Temazepam (Restoril) 15 mg HS PO Last administered on 11/13/17at 20:27; Start at 21:00 Ropinirole HCl (Requip) 0.5 mg DAILY16 PO ; Start 11/14/17 at 16:00 Diltiazem HCl (Cardizem 24hr Cd) 120 mg DAILY PO Last administered on at 09:13; Start 11/14/17 at 09:00 Furosemide (Lasix) 40 mg DAILY PO Last administered on 11/14/17at 09:13; Start 11/14/17 at 09:00 Potassium Chloride (Klor-Con) 10 meq DAILY PO Last administered on 11/14/17at 09 :13; Start 11/14/17 at 09:00 Magnesium Oxide (Magnesium Oxide) 400 mg DAILY PO Last administered on at 09:13; Start 11/14/17 at 09:00 Citalopram Hydrobromide (CeleXA) 10 mg DAILY PO ; Start 11/14/17 at 09:30; Stop 11/14/17 at 09:30; Status DC Active Scripts Active Levemir Flextouch (Insulin Detemir) 100 Unit/1 Ml Insuln.pen 1 Unit SQ UD 40 units before breakfast, 25 units before bedtime Novolog Flexpen (Insulin Aspart) 100 Unit/1 Ml Insuln.pen 0 Units SQ TIDWMEALS Reported Vitamin D2 (Ergocalciferol (Vitamin D2)) 50,000 Unit Capsule 50,000 Unit PO QMTH Mag-Oxide (Magnesium Oxide) 400 Mg Tablet 400 Mg PO DAILY Diltiazem 24HR Cd (Diltiazem Hcl) 120 Mg Cap.er.24h 120 Mg PO DAILY Potassium Chloride 10 Meq Tablet.er 10 Meq PO DAILY Furosemide 40 Mg Tablet 40 Mg PO DAILY Novolog Flexpen (Insulin Aspart) 100 Unit/1 Ml Insuln.pen 34 Unit SQ TIDWMEALS Ropinirole Hcl 0.5 Mg Tablet 0.5 Mg PO DAILY16 Imodium A-D (Loperamide HCl) 2 Mg Capsule 2 Mg PO TWICE WEEKLY PRN Gabapentin 600 Mg Tablet 600 Mg PO HS Gabapentin 300 Mg Capsule 600 Mg PO DAILY16 Bupropion Xl (Bupropion Hcl) 300 Mg Tab.er.24h 1 Tab PO DAILYWBKFT Requip (Ropinirole Hcl) 0.5 Mg Tablet 1 Tab PO QHS Cymbalta (Duloxetine Hcl) 30 Mg Capsule. 1 Cap PO DAILY Zanaflex (Tizanidine Hcl) 4 Mg Tablet 1-2 Tab PO PRN TID PRN Last dose given yesterday May take again when needed Temazepam 15 Mg Capsule 30 Mg PO HS Received dose last night Take tonight if needed Atorvastatin Calcium 10 Mg Tablet 10 Mg PO HS Not given on this admission Take when needed Pantoprazole Sodium 40 Mg Tablet. 1 Tab PO QHS Received dose last night Take again tonight Alprazolam 1 Mg Tablet 0.5-1 Tab PO PRN BID PRN Not given on this admission Take when needed [place] 5-325 Tablet (Acetaminophen/Hydrocodone Bitart) 1 Each Tablet 1 Tab PO PRN Q4HRS PRN Given dose at 1:45 pm May take again after 9:45 Vitals/I & O Vital Sign - Last 24 Hours 11/13/17 11/13/17 11/13/17 11/13/17 13:45 13:45 14:45 15:27 Temp 97.8 98.8 97.8 98.8 Pulse 81 77 Resp 18 20 22 18 B/P (MAP) 161/80 (107) Pulse Ox 97 95 96 97 O2 Delivery Room Air Room Air 11/13/17 11/13/17 11/13/17 11/13/17 15:30 16:27 17:00 17:01 Pulse 92 82 Resp 20 19 Pulse Ox 94 96 O2 Delivery Room Air Room Air 11/13/17 11/13/17 11/13/17 11/13/17 18:13 19:00 19:08 19:13 Temp 97.9 97.9 Pulse 81 Resp 17 B/P (MAP) 140/76 (97) Pulse Ox 93 96 O2 Delivery Room Air Room Air Room Air Room Air 11/13/17 11/13/17 11/14/17 11/14/17 20:27 23:00 03:00 04:02 Temp 97.9 97.9 97.9 97.9 Pulse 75 86 Resp 17 17 B/P (MAP) 124/68 (86) 121/67 (85) Pulse Ox 96 90 98 90 O2 Delivery Room Air Room Air Room Air Room Air 11/14/17 11/14/17 11/14/17 11/14/17 05:02 07:00 08:00 08:15 Temp 97.9 97.9 Pulse 78 B/P (MAP) 130/51 (77) Pulse Ox 90 92 O2 Delivery Room Air Room Air Room Air 11/14/17 11/14/17 09:13 09:14 Pulse 78 B/P (MAP) 130/51 O2 Delivery Room Air Intake and Output 11/13/17 11/13/17 11/14/17 15:00 23:00 07:00 Intake Total 0 ml Output Total 100 ml 550 ml Balance -100 ml 0 ml -550 ml MYRIAM AMES MD Nov 14, 2017 10:29
[2017-11-14 11:00] VITALS: BP 121/65
[2017-11-14] MEDS ORDERED: CONTRAST GIVEN. MC PRN (11:45)
[2017-11-14] MEDS ORDERED: IOHEXOL 240 MG/ML 50ML VIAL. PO ONE (11:45)
--- NOTE | 2017-11-14 13:03 | PDOC2 ---
GI CONSULT Reason For Consult: Bloody BM today HPI: HPI: 72 y/o female admitted after falls at home - says doesn't feel lightheaded or weak or dizzy - "it just happens." Not sure about LOC. History difficult as she is very drowsy and keeps falling asleep. Family says has recently seen Dr. Jc and stress test was recommended - also has a pacemaker. Also recently saw Dr. Evangelista and PT was recommended. GI asked to see today re: rectal bleeding. Per RN, significant amount of red blood in briefs - doesn't think w/ stool. Family says she might have had a little abd pain earlier today. H/o hemorrhoidal-type bleeding off and on - this was more than usual. Normal Hgb and BUN. No n/v, change in appetite, or weight loss. EGD and colonoscopy 01/2017: non-bleeding internal hemorrhoids, normal random biopsies from sigmoid to cecum, gastritis. H/o GERD on PPI. H/o IBS-D - family believes stable. H/o partial colectomy for diverticulitis. Additional h/o outpt iron infusions. Chronic pain on Advil and hydrocodone, now also oxycodone? Family denies ASA. S/p cholecystectomy. PMH: PMH: CAD, CVA, HTN, HLD, DM, depression/anxiety, fibromyalgia, OA, diverticulosis/ itis, fatty liver, rectocele, pacemaker, cholecystectomy, partial colectomy, ventral hernia repair, thyroid biopsy, breast reduction, 10 back surgeries, spinal stimulator placement, cataract extraction, hysterectomy FH: Family History: Cancer, DM Social History: Smoke: No ALCOHOL: none Drugs: None ROS: GEN: Denies fevers, chills, sweats HEENT: Denies blurred vision, sore throat CV: Denies chest pain RESP: Denies shortness of air, cough GI: Per HPI : Denies hematuria, dysuria ENDO: Denies weight changes NEURO: ?confusion MSK: Denies weakness, joint pain/swelling SKIN: Denies jaundice, pruritus Vitals: Vitals: Vital Signs Date Time Temp Pulse Resp B/P (MAP) Pulse Ox O2 Delivery O2 Flow Rate FiO2 11/14/17 11:00 97.9 98 18 121/65 (83) 93 Room Air 97.9 Labs: Labs: Laboratory Tests Test 11/13/17 14:23 11/13/17 17:01 11/13/17 18:10 11/14/17 07:55 Urine Collection Type Unknown Urine Color Yellow Urine Clarity Clear Urine pH 6.0 Urine Specific [place] 1.010 Urine Protein Negative mg/dL (NEG-TRACE) Urine Glucose (UA) 500 mg/dL (NEG) Urine Ketones (Stick) Negative mg/dL (NEG) Urine Blood Trace (NEG) Urine Nitrite Negative (NEG) Urine Bilirubin Negative (NEG) Urine Urobilinogen Dipstick 0.2 mg/dL (0.2 mg/dL) Urine Leukocyte Esterase Trace (NEG) Urine RBC Occ /HPF (0-2) Urine WBC Occ /HPF (0-4) Urine Squamous Epithelial Cells Mod /LPF Urine Bacteria 0 /HPF (0-FEW) Urine Opiates Screen Neg (NEG) Urine Methadone Screen Neg (NEG) Urine Barbiturates Neg (NEG) Urine Phencyclidine Screen Neg (NEG) Urine Amphetamine/Methamphetamine Neg (NEG) Urine Benzodiazepines Screen Neg (NEG) Urine Cocaine Screen Neg (NEG) Urine Cannabinoids Screen Neg (NEG) Urine Ethyl Alcohol Neg (NEG) Glucose (Fingerstick) 274 mg/dL (70-99) White Blood Count 6.8 x10^3/uL (4.0-11.0) 7.0 x10^3/uL (4.0-11.0) Red Blood Count 4.29 x10^6/uL (3.50-5.40) 4.35 x10^6/uL (3.50-5.40) Hemoglobin 12.7 g/dL (12.0-15.5) 12.7 g/dL (12.0-15.5) Hematocrit 36.9 % (36.0-47.0) 37.6 % (36.0-47.0) Mean Corpuscular Volume 86 fL (79-100) 87 fL (79-100) Mean Corpuscular Hemoglobin 30 pg (25-35) 29 pg (25-35) Mean Corpuscular Hemoglobin Concent 34 g/dL (31-37) 34 g/dL (31-37) Red Cell Distribution Width 13.2 % (11.5-14.5) 13.4 % (11.5-14.5) Platelet Count 231 x10^3/uL (140-400) 264 x10^3/uL (140-400) Neutrophils (%) (Auto) 61 % (31-73) 56 % (31-73) Lymphocytes (%) (Auto) 30 % (24-48) 33 % (24-48) Monocytes (%) (Auto) 7 % (0-9) 7 % (0-9) Eosinophils (%) (Auto) 2 % (0-3) 3 % (0-3) Basophils (%) (Auto) 1 % (0-3) 1 % (0-3) Neutrophils # (Auto) 4.1 x10^3uL (1.8-7.7) 3.9 x10^3uL (1.8-7.7) Lymphocytes # (Auto) 2.0 x10^3/uL (1.0-4.8) 2.3 x10^3/uL (1.0-4.8) Monocytes # (Auto) 0.4 x10^3/uL (0.0-1.1) 0.5 x10^3/uL (0.0-1.1) Eosinophils # (Auto) 0.1 x10^3/uL (0.0-0.7) 0.2 x10^3/uL (0.0-0.7) Basophils # (Auto) 0.0 x10^3/uL (0.0-0.2) 0.1 x10^3/uL (0.0-0.2) Erythrocyte Sedimentation Rate 48 (0-25) Prothrombin Time 14.2 SEC (11.7-14.0) Prothromb Time International Ratio 1.2 (0.8-1.1) Sodium Level 135 mmol/L (136-145) 139 mmol/L (136-145) Potassium Level 3.1 mmol/L (3.5-5.1) 3.1 mmol/L (3.5-5.1) Chloride Level 98 mmol/L (98-107) 100 mmol/L (98-107) Carbon Dioxide Level 33 mmol/L (21-32) 31 mmol/L (21-32) Anion Gap 4 (6-14) 8 (6-14) Blood Urea Nitrogen 10 mg/dL (7-20) 10 mg/dL (7-20) Creatinine 1.0 mg/dL (0.6-1.0) 1.0 mg/dL (0.6-1.0) Estimated GFR (Cockcroft-Gault) 54.8 54.8 BUN/Creatinine Ratio 10 (6-20) Glucose Level 327 mg/dL (70-99) 154 mg/dL (70-99) Calcium Level 9.1 mg/dL (8.5-10.1) 8.8 mg/dL (8.5-10.1) Phosphorus Level 4.0 mg/dL (2.6-4.7) Magnesium Level 1.5 mg/dL (1.8-2.4) Total Bilirubin 0.5 mg/dL (0.2-1.0) Aspartate Amino Transf (AST/SGOT) 27 U/L (15-37) Alanine Aminotransferase (ALT/SGPT) 27 U/L (14-59) Alkaline Phosphatase 122 U/L (46-116) Total Protein 7.5 g/dL (6.4-8.2) Albumin 3.4 g/dL (3.4-5.0) Albumin/Globulin Ratio 0.8 (1.0-1.7) Vitamin B12 Level 340 pg/mL (247-911) Ethyl Alcohol Level < 10 mg/dL (0-10) Test 11/14/17 08:04 11/14/17 11:34 Glucose (Fingerstick) 155 mg/dL (70-99) 128 mg/dL (70-99) Allergies: Coded Allergies: pramipexole (Verified Allergy, Severe, renal failure, 02/13/17) Sulfa (Sulfonamide Antibiotics) (Verified Allergy, Intermediate, 02/13/17) clavulanic acid (Verified Allergy, Intermediate, 02/13/17) Medications: Current Medications Medications (Trade) Dose Ordered Sig/Marly Route PRN Reason Start Time Stop Time Status Last Admin Dose Admin Fentanyl Citrate (Fentanyl 2ml Vial) 50 mcg 1X ONCE IM 11/13/17 14:00 11/13/17 14:02 DC 11/13/17 15:27 Ibuprofen (Motrin) 400 mg PRN Q6HRS PRN PO MILD PAIN 11/13/17 15:00 11/14/17 10:25 DC 11/14/17 09:12 Docusate Sodium (Colace) 100 mg BID PO 11/13/17 21:00 11/14/17 09:13 Enoxaparin Sodium (Lovenox 40mg Syringe) 40 mg Q24H SQ 11/13/17 16:00 11/14/17 10:25 DC 11/13/17 17:04 Alprazolam (Xanax) 0.5 mg PRN BID PRN PO ANXIETY / AGITATION 1ST CHOICE 11/13/17 15:15 11/13/17 20:27 Atorvastatin Calcium (Lipitor) 10 mg HS PO 11/13/17 21:00 11/13/17 20:27 Duloxetine HCl (Cymbalta) 30 mg DAILY PO 11/14/17 09:00 11/14/17 09:12 Acetaminophen/ Hydrocodone Bitart (Lortab 5/325) 1 tab PRN Q4HRS PRN PO BREAKTHROUGH PAIN 11/13/17 15:15 11/14/17 08:00 Oxycodone/ Acetaminophen (Percocet 5/325) 1 tab PRN Q6HRS PRN PO SEVERE PAIN 11/13/17 15:15 11/13/17 18:13 Pantoprazole Sodium (Protonix) 40 mg QHS PO 11/13/17 21:00 11/13/17 20:27 Bupropion HCl (Wellbutrin Xl) 300 mg DAILY PO 11/14/17 09:00 11/14/17 09:13 Gabapentin (Neurontin) 300 mg DAILY16 PO 11/13/17 16:00 11/13/17 18:21 DC 11/13/17 17:04 Gabapentin (Neurontin) 600 mg QHS PO 11/13/17 21:00 11/13/17 20:28 Insulin Glargine (Lantus) 40 units DAILY SQ 11/14/17 09:00 11/14/17 08:09 Lactobacillus Rhamnosus (Culturelle) 1 cap BID PO 11/13/17 21:00 11/14/17 09:13 Mirtazapine (Remeron) 15 mg QHS PO 11/13/17 21:00 11/13/17 20:27 Ropinirole HCl (Requip) 0.5 mg QHS PO 11/13/17 21:00 11/13/17 20:27 Insulin Human Lispro (HumaLOG) 0-9 UNITS TIDWMEALS SQ 11/13/17 17:00 11/14/17 08:09 Insulin Glargine (Lantus) 25 units QHS SQ 11/13/17 21:00 11/13/17 20:34 Temazepam (Restoril) 15 mg HS PO 11/13/17 21:00 11/13/17 20:27 Diltiazem HCl (Cardizem 24hr Cd) 120 mg DAILY PO 11/14/17 09:00 11/14/17 09:13 Furosemide (Lasix) 40 mg DAILY PO 11/14/17 09:00 11/14/17 09:13 Potassium Chloride (Klor-Con) 10 meq DAILY PO 11/14/17 09:00 11/14/17 09:13 Magnesium Oxide (Magnesium Oxide) 400 mg DAILY PO 11/14/17 09:00 11/14/17 09:13 Imaging: Imaging: CT T-spine IMPRESSION: 1. No acute thoracic spine fracture is identified by CT. 2. There is multilevel cervical and thoracic neural foramina compromise. Shoulder X-Ray IMPRESSION:. No acute radiographic abnormality. L-spine CT IMPRESSION: 1. No acute lumbar spine fracture is identified. There is bone demineralization. There are postsurgical changes of the lumbar spine as stated. 2. Visualized urinary bladder is somewhat distended. Head, C-spine CT IMPRESSION: No acute intracranial findings. IMPRESSION: 1. No acute fracture of the cervical spine. Correlate clinically. 2. Partially visualized comminuted fracture of the medial right clavicle again identified. PE: GEN: NAD HEENT: Atraumatic, PERRL LUNGS: CTAB HEART: RRR ABD: NABS, S/ND/NT - did not awaken for my exam earlier EXTREMITY: No edema SKIN: No rashes, no jaundice NEURO/PSYCH: very drowsy and forgetful A/P: A/P: Falls, AMS Hematochezia, h/o hemorrhoids GERD - on PPI CRC screen - UTD S/p cholecystectomy -- Returned to see w/ Dr. Chowdary - will ask cardiology and neurology to follow w/ drowsiness, AMS - might need pacemaker check, also had recs for outpt stress test? - d/w Jhunne Monitor labs and for bleeding - hemorrhoids? Recent 'scopes ok. Note plans for CT A/P, await this. Continue PPI. GARRISON COET Nov 14, 2017 13:03
--- NOTE | 2017-11-14 13:31 | PDOC2 ---
CARDIAC CONSULT DATE OF CONSULT Date of Consult DATE: 11/14/17 TIME: 13:28 REASON FOR CONSULT Reason for Consult: AMS, falls, pacemaker, outpatient recommendation for stress test REFERRING PHYSICIAN Referring Physician: Jatin SOURCE Source: Chart review HISTORY OF PRESENT ILLNESS HISTORY OF PRESENT ILLNESS 72 year old female with multiple recent ER evaluations for falls. Lost her balance a week ago getting out of the shower and fell striking her left forehead and fracturing her right clavicle. Was referred to orthopedics as outpatient. Presented to ER 2 days later, not wearing her sling, for pain. Fall again yesterday while walking. Denies syncope and reports awareness of falling. No EKG or CXR for review. Review of office note from 10/08/2017 for cardiology demonstrates multiple mind/mood altering drugs as well as a percocet Rx given after clavicular fracture. Hypokalemia with K of 3.1 and hypomagnesemic with Mg of 1.5. PAST MEDICAL HISTORY Cardiovascular: CAD (mild single vessel LAD disease on cath 09/2013 of < 20%), HTN, Other (CHB/SSS with Biotronik PPM) Pulmonary: Other ([facility]) CENTRAL NERVOUS SYSTEM: Periperal neuropathy (and restless legs), Other ( cerebral hemorrhage) GI: GERD, Irritable bowel disease Heme/Onc: Anemia NOS Psych: Anxiety, Depression Musculoskeletal: low back pain, Other (spinal stenosis) Rheumatologic: Fibromyalgia Endocrine: Diabetes PAST SURGICAL HISTORY Past Surgical History: Pacemaker (Biotronik), Cholecystectomy, Cataract Removal , Hysterectomy, Colectomy, Other (multiple back surgeries; carpal tunnel release ; breast reduction; implant spinal cord stimulator) FAMILY HISTORY Family History: Adopted SOCIAL HISTORY Smoke: No ALCOHOL: none Lives: with Family CURRENT MEDICATIONS CURRENT MEDICATIONS Current Medications Medications (Trade) Dose Ordered Sig/Marly Route PRN Reason Start Time Stop Time Status Last Admin Dose Admin Fentanyl Citrate (Fentanyl 2ml Vial) 50 mcg 1X ONCE IM 11/13/17 14:00 11/13/17 14:02 DC 11/13/17 15:27 Ibuprofen (Motrin) 400 mg PRN Q6HRS PRN PO MILD PAIN 11/13/17 15:00 11/14/17 10:25 DC 11/14/17 09:12 Docusate Sodium (Colace) 100 mg BID PO 11/13/17 21:00 11/14/17 09:13 Enoxaparin Sodium (Lovenox 40mg Syringe) 40 mg Q24H SQ 11/13/17 16:00 11/14/17 10:25 DC 11/13/17 17:04 Alprazolam (Xanax) 0.5 mg PRN BID PRN PO ANXIETY / AGITATION 1ST CHOICE 11/13/17 15:15 11/13/17 20:27 Atorvastatin Calcium (Lipitor) 10 mg HS PO 11/13/17 21:00 11/13/17 20:27 Duloxetine HCl (Cymbalta) 30 mg DAILY PO 11/14/17 09:00 11/14/17 09:12 Acetaminophen/ Hydrocodone Bitart (Lortab 5/325) 1 tab PRN Q4HRS PRN PO BREAKTHROUGH PAIN 11/13/17 15:15 11/14/17 08:00 Oxycodone/ Acetaminophen (Percocet 5/325) 1 tab PRN Q6HRS PRN PO SEVERE PAIN 11/13/17 15:15 11/13/17 18:13 Pantoprazole Sodium (Protonix) 40 mg QHS PO 11/13/17 21:00 11/13/17 20:27 Bupropion HCl (Wellbutrin Xl) 300 mg DAILY PO 11/14/17 09:00 11/14/17 09:13 Gabapentin (Neurontin) 300 mg DAILY16 PO 11/13/17 16:00 11/13/17 18:21 DC 11/13/17 17:04 Gabapentin (Neurontin) 600 mg QHS PO 11/13/17 21:00 11/13/17 20:28 Insulin Glargine (Lantus) 40 units DAILY SQ 11/14/17 09:00 11/14/17 08:09 Lactobacillus Rhamnosus (Culturelle) 1 cap BID PO 11/13/17 21:00 11/14/17 09:13 Mirtazapine (Remeron) 15 mg QHS PO 11/13/17 21:00 11/13/17 20:27 Ropinirole HCl (Requip) 0.5 mg QHS PO 11/13/17 21:00 11/13/17 20:27 Insulin Human Lispro (HumaLOG) 0-9 UNITS TIDWMEALS SQ 11/13/17 17:00 11/14/17 08:09 Insulin Glargine (Lantus) 25 units QHS SQ 11/13/17 21:00 11/13/17 20:34 Temazepam (Restoril) 15 mg HS PO 11/13/17 21:00 11/13/17 20:27 Diltiazem HCl (Cardizem 24hr Cd) 120 mg DAILY PO 11/14/17 09:00 11/14/17 09:13 Furosemide (Lasix) 40 mg DAILY PO 11/14/17 09:00 11/14/17 09:13 Potassium Chloride (Klor-Con) 10 meq DAILY PO 11/14/17 09:00 11/14/17 09:13 Magnesium Oxide (Magnesium Oxide) 400 mg DAILY PO 11/14/17 09:00 11/14/17 09:13 ALLERGIES ALLERGIES: Coded Allergies: pramipexole (Verified Allergy, Severe, renal failure, 02/13/17) Sulfa (Sulfonamide Antibiotics) (Verified Allergy, Intermediate, 02/13/17) clavulanic acid (Verified Allergy, Intermediate, 02/13/17) ROS General: YES: Fatigue, Malaise PSYCHOLOGICAL ROS: YES: Anxiety, Depression Eyes: No Blurry vision, No Decreased vision, No Double vision, No Dry eyes, No Excessive tearing, No Eye Pain, No Itchy Eyes, No Loss of vision, No Photophobia , No Scotomata, No Uses contacts, No Uses glasses, No Other HEENT: No: Heacaches, Visual Changes, Hearing change, Nasal congestion, Nasal discharge, Oral lesions, Sinus pain, Sore Throat, Epistaxis, Sneezing, Snoring, Tinnitus, Vertigo, Vocal changes, Other ALLERGY AND IMMUNOLOGY: No: Hives, Insect Bite Sensitivity, Itchy/Watery Eyes, Nasal Congestion, Post Nasal Drip, Seasonal Allergies, Other Hematological and Lymphatic: No: Bleeding Problems, Blood Clots, Blood Transfusions, Brusing, Night Sweats, Pallor, Swollen Lymph Nodes, Other ENDOCRINE: No: Breast Changes, Galactorrhea, Hair Pattern Changes, Hot Flashes , Malaise/lethargy, Mood Swings, Palpitations, Polydipsia/polyuria, Skin Changes , Temperature Intolerance, Unexpected Weight Changes, Other Respiratory: No: Cough, Hemoptysis, Orthopnea, Pleuritic Pain, Shortness of breath, SOB with excertion, Sputum Changes, Stridor, Tachypnea, Wheezing, Other Cardiovascular: No Chest Pain, No Palpitations, No Orthopnea, No Paroxysmal Noc. Dyspnea, No Edema, No Lt Headedness, No Other Gastrointestinal: Yes Diarrhea; No Nausea, No Vomiting, No Abdominal Pain, No Constipation, No Melena, No Hematochezia, No Other Genitourinary: No Dysuria, No Frequency, No Incontinence, No Hematuria, No Retention, No Discharge, No Urgency, No Pain, No Flank Pain, No Other Musculoskeletal: Yes Gait Disturbance Neurological: Yes Confusion, Yes Gait Disturbance, Yes Impaired Coord/balance, Yes Other (falls) Skin: No Dry Skin, No Eczema, No Hair Changes, No Lumps, No Mole Changes, No Mottling, No Nail Changes, No Pruritus, No Rash, No Skin Lesion Changes, No Other, No Acne PHYSICAL EXAM General: Alert, Oriented X3, Cooperative, No acute distress HEENT: Atraumatic, Mucous membr. moist/pink Lungs: Clear to auscultation Heart: Regular rate, Normal S1, Normal S2, No murmurs, Other (left pectoral region PPM pocket well healed) Abdomen: No tenderness Extremities: No edema, Normal pulses Neuro: Normal speech Psych/Mental Status: Mental status NL, Mood NL MUSCULOSKELETAL: Osteoarthritic changes both hands VITALS VITALS Vital Signs Date Time Temp Pulse Resp B/P (MAP) Pulse Ox O2 Delivery O2 Flow Rate FiO2 11/14/17 11:00 97.9 98 18 121/65 (83) 93 Room Air 97.9 LABS Lab: Laboratory Tests Test 11/13/17 14:23 11/13/17 17:01 11/13/17 18:10 11/14/17 07:55 Urine Collection Type Unknown Urine Color Yellow Urine Clarity Clear Urine pH 6.0 Urine Specific [place] 1.010 Urine Protein Negative mg/dL (NEG-TRACE) Urine Glucose (UA) 500 mg/dL (NEG) Urine Ketones (Stick) Negative mg/dL (NEG) Urine Blood Trace (NEG) Urine Nitrite Negative (NEG) Urine Bilirubin Negative (NEG) Urine Urobilinogen Dipstick 0.2 mg/dL (0.2 mg/dL) Urine Leukocyte Esterase Trace (NEG) Urine RBC Occ /HPF (0-2) Urine WBC Occ /HPF (0-4) Urine Squamous Epithelial Cells Mod /LPF Urine Bacteria 0 /HPF (0-FEW) Urine Opiates Screen Neg (NEG) Urine Methadone Screen Neg (NEG) Urine Barbiturates Neg (NEG) Urine Phencyclidine Screen Neg (NEG) Urine Amphetamine/Methamphetamine Neg (NEG) Urine Benzodiazepines Screen Neg (NEG) Urine Cocaine Screen Neg (NEG) Urine Cannabinoids Screen Neg (NEG) Urine Ethyl Alcohol Neg (NEG) Glucose (Fingerstick) 274 mg/dL (70-99) White Blood Count 6.8 x10^3/uL (4.0-11.0) 7.0 x10^3/uL (4.0-11.0) Red Blood Count 4.29 x10^6/uL (3.50-5.40) 4.35 x10^6/uL (3.50-5.40) Hemoglobin 12.7 g/dL (12.0-15.5) 12.7 g/dL (12.0-15.5) Hematocrit 36.9 % (36.0-47.0) 37.6 % (36.0-47.0) Mean Corpuscular Volume 86 fL (79-100) 87 fL (79-100) Mean Corpuscular Hemoglobin 30 pg (25-35) 29 pg (25-35) Mean Corpuscular Hemoglobin Concent 34 g/dL (31-37) 34 g/dL (31-37) Red Cell Distribution Width 13.2 % (11.5-14.5) 13.4 % (11.5-14.5) Platelet Count 231 x10^3/uL (140-400) 264 x10^3/uL (140-400) Neutrophils (%) (Auto) 61 % (31-73) 56 % (31-73) Lymphocytes (%) (Auto) 30 % (24-48) 33 % (24-48) Monocytes (%) (Auto) 7 % (0-9) 7 % (0-9) Eosinophils (%) (Auto) 2 % (0-3) 3 % (0-3) Basophils (%) (Auto) 1 % (0-3) 1 % (0-3) Neutrophils # (Auto) 4.1 x10^3uL (1.8-7.7) 3.9 x10^3uL (1.8-7.7) Lymphocytes # (Auto) 2.0 x10^3/uL (1.0-4.8) 2.3 x10^3/uL (1.0-4.8) Monocytes # (Auto) 0.4 x10^3/uL (0.0-1.1) 0.5 x10^3/uL (0.0-1.1) Eosinophils # (Auto) 0.1 x10^3/uL (0.0-0.7) 0.2 x10^3/uL (0.0-0.7) Basophils # (Auto) 0.0 x10^3/uL (0.0-0.2) 0.1 x10^3/uL (0.0-0.2) Erythrocyte Sedimentation Rate 48 (0-25) Prothrombin Time 14.2 SEC (11.7-14.0) Prothromb Time International Ratio 1.2 (0.8-1.1) Sodium Level 135 mmol/L (136-145) 139 mmol/L (136-145) Potassium Level 3.1 mmol/L (3.5-5.1) 3.1 mmol/L (3.5-5.1) Chloride Level 98 mmol/L (98-107) 100 mmol/L (98-107) Carbon Dioxide Level 33 mmol/L (21-32) 31 mmol/L (21-32) Anion Gap 4 (6-14) 8 (6-14) Blood Urea Nitrogen 10 mg/dL (7-20) 10 mg/dL (7-20) Creatinine 1.0 mg/dL (0.6-1.0) 1.0 mg/dL (0.6-1.0) Estimated GFR (Cockcroft-Gault) 54.8 54.8 BUN/Creatinine Ratio 10 (6-20) Glucose Level 327 mg/dL (70-99) 154 mg/dL (70-99) Calcium Level 9.1 mg/dL (8.5-10.1) 8.8 mg/dL (8.5-10.1) Phosphorus Level 4.0 mg/dL (2.6-4.7) Magnesium Level 1.5 mg/dL (1.8-2.4) Total Bilirubin 0.5 mg/dL (0.2-1.0) Aspartate Amino Transf (AST/SGOT) 27 U/L (15-37) Alanine Aminotransferase (ALT/SGPT) 27 U/L (14-59) Alkaline Phosphatase 122 U/L (46-116) Total Protein 7.5 g/dL (6.4-8.2) Albumin 3.4 g/dL (3.4-5.0) Albumin/Globulin Ratio 0.8 (1.0-1.7) Vitamin B12 Level 340 pg/mL (247-911) Ethyl Alcohol Level < 10 mg/dL (0-10) Test 11/14/17 08:04 11/14/17 11:34 Glucose (Fingerstick) 155 mg/dL (70-99) 128 mg/dL (70-99) IMAGES IMAGES no CXR for review EKG EKG none for review ECHOCARDIOGRAM ECHOCARDIOGRAM 09/06/2017: TTE: The left ventricular systolic function is normal and the ejection fraction is within normal range. EF 65% There is normal LV segmental wall motion. STRESS TEST STRESS TEST : MPI: 1. Regadenoson cardioisotope stress test showed small amount of anterior wall ischemia. 2. Normal left ventricular systolic function with ejection fraction calculated at 81%. 3. Low to intermediate risk for cardiac events. HEART CATH HEART CATH 09/2013: Findings. Hemodynamics. LV pressure of 138/18, aortic root pressure of 136/64. Coronaries. Left main. The left main had no lesions. Left anterior ascending artery. The LAD had mild mid tapering of less than 20%. Left circumflex. The LCX had no lesions. Right coronary artery. The RCA had no lesions. LV gram. No LV gram was performed. <Conclusion> Mild single-vessel coronary artery disease Normal left ventricular end-diastolic pressure. ASSESSMENT/PLAN ASSESSMENT/PLAN 1. mechanical falls --patient on multiple mind/mood altering drugs that may impair balance or cause hypotension --check orthostatics X 1 2. CAD --had minimal single vessel LAD disease on cath - 2013 --MPI done 09/2017 with small amount of anterior ischemia, preserved LV function with EF of 81% and was interpreted as low risk study --TTE done 08/2017 without significant findings --continue primary prevention 3. SSS/CHB with prior PPM implant --downloaded on 11/13/2017 prior to her ER presentation: no alerts; no afib burden and 100% V-paced --placed on tele: PPM sensing and pacing appropriately 4. hypokalemia with hypomagnesemia --give extra oral dose of potassium today --replace Mg IV in the setting of recent diarrhea; oral Mg may exacerbate the diarrhea 5. DM, II --per primary service 6. chronic back --would likely benefit from weaning of some meds and dosages as this may be impacting her mental status 7. HTN --control with oral meds JACKSON SESAY APRN Nov 14, 2017 13:31
--- NOTE | 2017-11-14 13:49 | CONS ---
DATE OF CONSULTATION: 11/14/2017 ATTENDING PHYSICIAN: Dr. Meyer. The patient was seen at the request of Dr. Meyer for rehab evaluation. HISTORY OF PRESENT ILLNESS: This is a 72-year-old right-handed female admitted on 11/13/2017, brought in by her son. As per the notes, she lives with her son, but the patient states that she lives with her . She had multiple falls in the last month, about 4-5 times. She usually does not use any assistive devices. She had a cane and a walker, but does not use them all the time. Last fall is about a week ago, she was in the Emergency Room and was discharged to home with pain medication, then fell afterwards. She did sustain a right medial clavicular nondisplaced fracture during the last fall. The patient complains of pain in right shoulder. She admits some back pain. The patient is status post thoracic and lumbar spine surgery in the past. The patient also admits some stiffness and pain in her knees. PAST MEDICAL HISTORY: The patient with known coronary artery disease, hypertension, hyperlipidemia, old cerebrovascular accident, gastroesophageal reflux disease, anemia, anxiety, depression, chronic lower back pain, osteoarthritis, fibromyalgia, diabetes mellitus, status post cataract surgery and permanent pacemaker placement. ALLERGIES: Known allergic to SULFA, CLAVULANIC ACID, PRAMIPEXOLE. FAMILY HISTORY: Diabetes mellitus and hypertension. REVIEW OF SYSTEMS: The patient also admits some urinary and stool incontinence. She usually gets up and walks. Her does the homemaking including cooking. She takes a bath by herself. PHYSICAL EXAMINATION: GENERAL: Today revealed an elderly female. NEUROLOGIC: She is alert, oriented to time, place, person and circumstance and follows commands appropriately. Moves all 4 extremities voluntarily where she had 4/5-4+/5 grade muscle strength and deep tendon reflexes are decreased overall with absent ankle jerks and she had equal perception of touch and pinprick sensation bilaterally. She had tenderness to palpation over anterior aspect of right shoulder with some bruised area and also over medial aspect of her right clavicle without any significant swelling. The patient had tenderness to palpation over cervical paraspinal and posterior shoulder girdle and thoracic paraspinal and also lumbar paraspinal muscles, extending over to sacroiliac joint area and straight leg raising test is negative bilaterally. She is independent with bed mobility and transfers and up walking using a roller walker with somewhat wide-based gait. Trying to get in onto the bed or try to sit down, she shakes and takes a long time. She had crepitus on range of motion of her knee joints without any obvious knee joint effusion. She had painful range of motion of both hip joints. ASSESSMENT: An elderly female with diabetic peripheral neuropathy with associated chronic back pain status post thoracic and lumbar spine surgery and also radiological evidence of degenerative disk disease and degenerative joint disease involving cervical, thoracic and lumbar vertebrae; with chronic back pain and multiple falls and sprain; right shoulder and fracture, right clavicle medial and without any displacement. The patient with known coronary artery disease, hypertension, hyperlipidemia, old cerebrovascular accident, gastroesophageal reflux disease, anemia, anxiety, depression, fibromyalgia, status post permanent pacemaker placement. RECOMMENDATIONS: Agree with the plan for physical therapy and occupational therapy to work on safety if she agrees and family wants to arrange for transfer to residential care unit or rehab unit, but she needs to use the roller walker all the time. Dr. Meyer, appreciate asking me to participate in the care of this interesting patient. I will be glad to follow her with you as needed for her rehabilitation. JANET LAUGHLIN MD DR: TANK/antonio JOB#: [id number] / [id number]
--- NOTE | 2017-11-14 14:31 | RAD ---
CT abdomen pelvis with oral contrast only Indication: Bloody bowel movement, bloody urine Technique: CT imaging was performed of the abdomen and pelvis after administration of oral contrast, no intravenous contrast given. Multiplanar reconstruction images are submitted. One or more of the following individualized dose reduction techniques were utilized for this examination: 1. Automated exposure control 2. Adjustment of the mA and/or kV according to patient size 3. Use of iterative reconstruction technique. Comparison: October 24, 2017 and January 03, 2017. The appearance of mild wall prominence of the more distal sigmoid colon as well as segment of the descending colon may be accentuated by incomplete distention rather than pathologic wall change. Sacrum with of old thickening of the distal ileum is difficult to exclude by this exam although no adjacent inflammatory change of findings may be due to peristalsis and incomplete distention. There is no free fluid or free air. There is multilevel posterolateral fusion hardware L1-L5, multilevel posterior decompression. Findings: There is elevation right hemidiaphragm. Lead from electronic cardiac device is noted. There is no pleural fluid. Accurate evaluation of abdominal visceral organs is limited without intravenous contrast, no new obvious focal abnormality of the liver, spleen, pancreas. Gallbladder is not seen. There is no adrenal nodularity. There is no urolithiasis or hydronephrosis. The stomach is not well distended, cannot exclude wall thickening on this exam. Bowel is not significantly dilated. There is no free air. There has been ventral hernia repair on the left as seen previously. There is nonspecific hazy density of the ventral abdominal subcutaneous fat, also focus of gas in the right possibly due to site of medication injection of corresponding history. There is anastomotic site of the sigmoid colon IMPRESSION: 1. Gastric wall thickening is not excluded on this exam although may be due to nondistention. Short segment wall thickening of the distal ileum and minimally of the descending and distal sigmoid colon is difficult to exclude on this exam as can be seen with colitis in the appropriate clinical setting although findings may be due to nondistention and peristalsis. 2. There is no urolithiasis or hydronephrosis. Electronically signed by: Johnie Collier MD (11/14/2017 2:28 PM) [id number]
[2017-11-14 15:00] VITALS: BP 116/54
[2017-11-14] MEDS ORDERED: POTASSIUM CHLORIDE 20 MEQ TABLET.ER. PO ONE (15:00)
[2017-11-14] MEDS ORDERED: MAGNESIUM SULFATE 2GM 50 ML IV ONE (15:00)
[2017-11-14] MEDS: rOPINIRole 1 MG TABLET. PO SCH (16:00)
[2017-11-14] MEDS: GABAPENTIN 300 MG CAPSULE. PO SCH ×2 (16:05→20:53)
[2017-11-14] MEDS: rOPINIRole 0.25 MG TABLET. PO SCH (16:05)
--- NOTE | 2017-11-14 18:42 | PDOC2 ---
NEUROLOGY CONSULT Date of Admission Date of Admission DATE: 11/14/17 TIME: 18:28 Reason for Consult Reason for Consult: IMPRESSION: MS changes. Cognitive impairment. Frequent falls, multifactorial causes. Medial right clavicle comminuted fracture from falling. Diabetic peripheral neuropathy. Hyperglycemia. DM, poorly controlled. HTN. Chronic back pain. Pacemaker. Obesity. Inactive life style. Degenerative spine disease. No evidence of cord compression or radiculopathy this time. RECOMMENDATIONS/PLAN: EEG. Lab: see orders. Control hyperglycemia. Treat medical diseases. Ortho for fracture treatment. OT/PT. Weight reduction. Exercise. Discussed with her at bedside on 11/14/17. C/T/L spine CT: No acute findings. HISTORY OF THE PRESENT ILLNESS: 72-y-old female patient with above medical diseases and longstanding Hx of DM but poorly controlled. She had multiple falls in the past 1 months which resulted in her right clavicle fracture. neurology is requested for consultation for MS changes, cognitive impairment and frequent falls. PAST MEDICAL HISTORY Cardiovascular: CAD (mild single vessel LAD disease on cath 09/2013 of < 20%), HTN, Other (CHB/SSS with Biotronik PPM) Pulmonary: Other (KERWIN) CENTRAL NERVOUS SYSTEM: Periperal neuropathy (and restless legs), Other ( cerebral hemorrhage) GI: GERD, Irritable bowel disease Heme/Onc: Anemia NOS Psych: Anxiety, Depression Musculoskeletal: low back pain, Other (spinal stenosis) Rheumatologic: Fibromyalgia Endocrine: Diabetes PAST SURGICAL HISTORY Pacemaker (Biotronik), Cholecystectomy, Cataract Removal, Hysterectomy, Colectomy, multiple back surgeries; carpal tunnel release; breast reduction; implant spinal cord stimulator. FAMILY HISTORY Adopted ALLERGY: Reviewed. MEDICATIONS: Refer to MAR SOCIAL HISTORY: Lives at home with her . Denies current smoking, drinking, and illicit drug use. REVIEW OF SYSTEMS: Constitutional: Obesity. Head: No traumatic brain or head injury. Skin: No edema, or rash. Ear: No infection. Eyes: No vision loss or color blindness. Nose: No bleeding or purulent discharges. Hearing: No hearing decrease. Neck: No injury. Breast: No history of cancer, masses,or discharges. Cardiac: Pacemaker Placement. Pulmonary: No COPD. GI: No GI ulcer, GI bleeding. Urinary/genital: UTI. Endocrinologic: Diabetes Mellitus, obesity. Skeletomuscular: Falls. Generalized weakness. Neurological: see HP. Psychiatric: Denies drug use/abuse. Otherwise, not [id number] review of systems. PHYSICAL EXAMINATION: General appearance is in subacute distress. HEENT: Normocephalic and nontraumatic. Eyes, nose, ears, and throat are unremarkable. Neck is supple. No lymphadenopathy. No crepitus. Cardiovascular: S1, S2, regular rate and rhythm. Pulmonary: Clear to auscultation bilaterally. Abdomen: Bowel sounds are positive. Extremities: No rash, lesions, or edema. No restriction of range of motion NEUROLOGICAL EXAMINATION: Alert Oriented to time, place and person. PERRL. EOMI. CN: no focal findings. Muscle tone: within normal. Muscle strength: 5 UE, 4+ LE DTR: 1+ Plantar reflex: Flexor response bilaterally Gait: not examined in bed. Sensory exam: no abnormal findings. No cerebellar signs elicited. F-T-N test accurate. Current Medications Current Medications Current Medications Fentanyl Citrate (Fentanyl 2ml Vial) 50 mcg 1X ONCE IM Last administered on at 15:27; Start 11/13/17 at 14:00; Stop 11/13/17 at 14:02; Status DC Ondansetron HCl (Zofran) 4 mg PRN Q6HRS PRN IV NAUSEA/VOMITING 1ST CHOICE; Start 11/13/17 at 15:00 Prochlorperazine Edisylate (Compazine) 10 mg PRN Q6HRS PRN IV NAUSEA/VOMITING 2ND CHOICE; Start 11/13/17 at 15:00 Prochlorperazine (Compazine) 25 mg PRN Q12HR PRN TN NAUSEA/VOMITING; Start at 15:00 Al Hydroxide/Mg Hydroxide (Mylanta Plus Xs) 30 ml PRN Q3HRS PRN PO HEARTBURN / GAS; Start 11/13/17 at 15:00 Calcium Carbonate/ Glycine (Tums) 500 mg PRN Q3HRS PRN PO UPSET STOMACH; Start 11/13/17 at 15:00 Oxycodone HCl (Roxicodone) 5 mg PRN Q3HRS PRN PO MOD-SEVERE PAIN 2ND CHOICE; Start 11/13/17 at 15:00 Morphine Sulfate (Morphine Sulfate) 1 mg PRN Q1HR PRN IV PAIN; Start 11/13/17 at 15:00 Ketorolac Tromethamine (Toradol 15mg Vial) 15 mg PRN Q6HRS PRN IV INFLAMMATION/ PAIN PREVENTION; Start 11/13/17 at 15:00; Stop 11/18/17 at 14:59 Acetaminophen (Tylenol) 650 mg PRN Q6HRS PRN PO Headaches, Temp > 101.5F; Start 11/13/17 at 15:00 Ibuprofen (Motrin) 400 mg PRN Q6HRS PRN PO MILD PAIN Last administered on at 09:12; Start 11/13/17 at 15:00; Stop 11/14/17 at 10:25; Status DC Docusate Sodium (Colace) 100 mg BID PO Last administered on 11/14/17at 09:13; Start 11/13/17 at 21:00 Magnesium Hydroxide (Milk Of Magnesia) 2,400 mg PRN Q12HR PRN PO CONSTIPATION; Start 11/13/17 at 15:00 Bisacodyl (Dulcolax Supp) 10 mg PRN DAILY PRN TN CONSTIPATION; Start 11/13/17 at 15:00 Enoxaparin Sodium (Lovenox 40mg Syringe) 40 mg Q24H SQ Last administered on at 17:04; Start 11/13/17 at 16:00; Stop 11/14/17 at 10:25; Status DC Clonidine HCl (Catapres) 0.1 mg PRN Q1HR PRN PO HYPERTENSION, SEE COMMENTS; Start 11/13/17 at 15:00 Alprazolam (Xanax) 0.5 mg PRN BID PRN PO ANXIETY / AGITATION 1ST CHOICE Last administered on 11/13/17at 20:27; Start 11/13/17 at 15:15 Atorvastatin Calcium (Lipitor) 10 mg HS PO Last administered on 11/13/17at 20:27 ; Start 11/13/17 at 21:00 Duloxetine HCl (Cymbalta) 30 mg DAILY PO Last administered on 11/14/17at 09:12; Start 11/14/17 at 09:00 Gemfibrozil (Lopid) 600 mg BID PO ; Start 11/13/17 at 21:00; Stop 11/13/17 at 21 :00; Status DC Acetaminophen/ Hydrocodone Bitart (Lortab 5/325) 1 tab PRN Q4HRS PRN PO MILD PAIN Last administered on 11/14/17at 14:54; Start 11/13/17 at 15:15 Labetalol HCl (Trandate) 100 mg DAILY PO ; Start 11/14/17 at 09:00; Stop at 09:00; Status DC Oxycodone/ Acetaminophen (Percocet 5/325) 1 tab PRN Q6HRS PRN PO MOD-SEVERE PAIN 1ST CHOICE Last administered on 11/13/17at 18:13; Start 11/13/17 at 15:15 Pantoprazole Sodium (Protonix) 40 mg QHS PO Last administered on 11/13/17at 20: 27; Start 11/13/17 at 21:00 Temazepam (Restoril) 15 mg HS PRN PO INSOMNIA, MAY REPEAT X1; Start 11/13/17 at 15:15; Stop 11/13/17 at 18:21; Status DC Bupropion HCl (Wellbutrin Xl) 300 mg DAILY PO Last administered on 11/14/17at 09 :13; Start 11/14/17 at 09:00 Ergocalciferol (Vitamin D2) 50,000 unit WEEKLY PO ; Start 11/17/17 at 09:00; Stop 11/17/17 at 09:00; Status DC Gabapentin (Neurontin) 300 mg DAILY16 PO Last administered on 11/13/17at 17:04; Start 11/13/17 at 16:00; Stop 11/13/17 at 18:21; Status DC Gabapentin (Neurontin) 600 mg QHS PO Last administered on 11/13/17at 20:28; Start 11/13/17 at 21:00 Non-Formulary Medication (Insulin Aspart (Novolog Flexpen)) TIDWMEALS SQ ; Start 11/13/17 at 17:00; Status UNV Insulin Glargine (Lantus) 40 units DAILY SQ Last administered on 11/14/17at 08: 09; Start 11/14/17 at 09:00 Lactobacillus Rhamnosus (Culturelle) 1 cap BID PO Last administered on at 09:13; Start 11/13/17 at 21:00 Loperamide HCl (Imodium) 2 mg PRN Q15MIN PRN PO DIARRHEA; Start 11/13/17 at 16: 45 Mirtazapine (Remeron) 15 mg QHS PO Last administered on 11/13/17at 20:27; Start 11/13/17 at 21:00 Ropinirole HCl (Requip) 0.5 mg QHS PO Last administered on 11/14/17 16:05; Start 11/13/17 at 21:00 Tizanidine HCl (Zanaflex) 4 mg PRN Q8HRS PRN PO MUSCLE SPASMS; Start 11/13/17 at 16:45 Insulin Human Lispro (HumaLOG) 0-9 UNITS TIDWMEALS SQ Last administered on 11/14at 17:26; Start 11/13/17 at 17:00 Dextrose (Dextrose 50%-Water Syringe) 12.5 gm PRN Q15MIN PRN IV SEE COMMENTS; Start 11/13/17 at 15:15 Ondansetron HCl (Zofran) 4 mg PRN Q8HRS PRN IV NAUSEA/VOMITING; Start 11/13/17 at 15:45; Stop 11/13/17 at 18:27; Status DC Morphine Sulfate (Morphine Sulfate) 4 mg PRN Q2HR PRN IV PAIN; Start 11/13/17 at 15:45; Stop 11/14/17 at 15:44; Status DC Acetaminophen (Tylenol) 650 mg PRN Q4HRS PRN PO FEVER; Start 11/13/17 at 15:45 ; Stop 11/13/17 at 18:26; Status DC Insulin Glargine (Lantus) 25 units QHS SQ Last administered on 11/13/17at 20:34 ; Start 11/13/17 at 21:00 Ergocalciferol (Vitamin D2) 50,000 unit QMTH PO ; Start 11/14/17 at 21:00 Gabapentin (Neurontin) 600 mg DAILY16 PO Last administered on 11/14/17at 16:05; Start 11/14/17 at 16:00 Temazepam (Restoril) 15 mg HS PO Last administered on 11/13/17at 20:27; Start at 21:00 Ropinirole HCl (Requip) 0.5 mg DAILY16 PO Last administered on 11/14/17at 16:00 ; Start 11/14/17 at 16:00 Diltiazem HCl (Cardizem 24hr Cd) 120 mg DAILY PO Last administered on at 09:13; Start 11/14/17 at 09:00 Furosemide (Lasix) 40 mg DAILY PO Last administered on 11/14/17at 09:13; Start 11/14/17 at 09:00 Potassium Chloride (Klor-Con) 10 meq DAILY PO Last administered on 11/14/17at 09 :13; Start 11/14/17 at 09:00 Magnesium Oxide (Magnesium Oxide) 400 mg DAILY PO Last administered on at 09:13; Start 11/14/17 at 09:00 Citalopram Hydrobromide (CeleXA) 10 mg DAILY PO ; Start 11/14/17 at 09:30; Stop 11/14/17 at 09:30; Status DC Iohexol (Omnipaque 240 Mg/ml) 30 ml 1X ONCE PO ; Start 11/14/17 at 11:45; Stop 11/14/17 at 11:46; Status DC Info (CONTRAST GIVEN -- Rx MONITORING) 1 each PRN DAILY PRN MC SEE COMMENTS; Start 11/14/17 at 11:45; Stop 11/16/17 at 11:44 Magnesium Sulfate 50 ml @ 25 mls/hr 1X ONCE IV Last administered on 11/14/17at 14:54; Start 11/14/17 at 15:00; Stop 11/14/17 at 16:59; Status DC Potassium Chloride (Klor-Con) 20 meq 1X ONCE PO Last administered on at 16:05; Start 11/14/17 at 15:00; Stop 11/14/17 at 15:01; Status DC Active Scripts Active Levemir Flextouch (Insulin Detemir) 100 Unit/1 Ml Insuln.pen 1 Unit SQ UD 40 units before breakfast, 25 units before bedtime Novolog Flexpen (Insulin Aspart) 100 Unit/1 Ml Insuln.pen 0 Units SQ TIDWMEALS Reported Vitamin D2 (Ergocalciferol (Vitamin D2)) 50,000 Unit Capsule 50,000 Unit PO QMTH Mag-Oxide (Magnesium Oxide) 400 Mg Tablet 400 Mg PO DAILY Diltiazem 24HR Cd (Diltiazem Hcl) 120 Mg Cap.er.24h 120 Mg PO DAILY Potassium Chloride 10 Meq Tablet.er 10 Meq PO DAILY Furosemide 40 Mg Tablet 40 Mg PO DAILY Novolog Flexpen (Insulin Aspart) 100 Unit/1 Ml Insuln.pen 34 Unit SQ TIDWMEALS Ropinirole Hcl 0.5 Mg Tablet 0.5 Mg PO DAILY16 Imodium A-D (Loperamide HCl) 2 Mg Capsule 2 Mg PO TWICE WEEKLY PRN Gabapentin 600 Mg Tablet 600 Mg PO HS Gabapentin 300 Mg Capsule 600 Mg PO DAILY16 Bupropion Xl (Bupropion Hcl) 300 Mg Tab.er.24h 1 Tab PO DAILYWBKFT Requip (Ropinirole Hcl) 0.5 Mg Tablet 1 Tab PO QHS Cymbalta (Duloxetine Hcl) 30 Mg Capsule.dr 1 Cap PO DAILY Zanaflex (Tizanidine Hcl) 4 Mg Tablet 1-2 Tab PO PRN TID PRN Last dose given yesterday May take again when needed Temazepam 15 Mg Capsule 30 Mg PO HS Received dose last night Take tonight if needed Atorvastatin Calcium 10 Mg Tablet 10 Mg PO HS Not given on this admission Take when needed Pantoprazole Sodium 40 Mg Tablet.dr 1 Tab PO QHS Received dose last night Take again tonight Alprazolam 1 Mg Tablet 0.5-1 Tab PO PRN BID PRN Not given on this admission Take when needed [place] 5-325 Tablet (Acetaminophen/Hydrocodone Bitart) 1 Each Tablet 1 Tab PO PRN Q4HRS PRN Given dose at 1:45 pm May take again after 9:45 Allergies Allergies: Allergies Coded Allergies Type Severity Reaction Last Updated Verified pramipexole Allergy Severe renal failure 02/13/17 Yes Sulfa (Sulfonamide Antibiotics) Allergy Intermediate 02/13/17 Yes clavulanic acid Allergy Intermediate 02/13/17 Yes ROS Review of System The patient denies any associated fevers, chills, headache, ear pain, rhinorrhea , sore throat, stiff neck, productive cough, chest pain, shortness of breath, back or flank pain, abdominal pain, nausea, vomiting, diarrhea, constipation, dysuria, rash, numbness, weakness, tingling, incontinence, difficulty ambulating, or diaphoresis. Physical Exam Physical Exam General: Well developed, well nourished, no acute distress, well appearing HEENT: Pupils equally round and reactive to light, EOMI, no discharge, normal conjunctiva Neck: Supple, no nuchal rigidity, no JVD, trachea midline, no tenderness Cardiac: RRR, no murmurs, no gallops, no rubs Chest/Lungs: CTAB, no wheeze, no rhonchi, no crackles Abdomen: soft, non-distended, no guarding, no peritoneal signs, non-tender Back: No tenderness Extremities: no edema, pulses intact, non-tender,capillary refill <3 sec bilateral upper and lower extremities, Neuro: Alert and oriented x 4, no focal deficits, normal speech Vitals Vitals: Vital Signs Date Time Temp Pulse Resp B/P (MAP) Pulse Ox O2 Delivery O2 Flow Rate FiO2 11/14/17 16:06 Room Air 11/14/17 15:00 98.6 72 18 116/54 (74) 94 98.6 Labs Labs Laboratory Tests Test 11/13/17 14:23 11/13/17 17:01 11/13/17 18:10 11/14/17 07:55 Urine Collection Type Unknown Urine Color Yellow Urine Clarity Clear Urine pH 6.0 Urine Specific [place] 1.010 Urine Protein Negative mg/dL (NEG-TRACE) Urine Glucose (UA) 500 mg/dL (NEG) Urine Ketones (Stick) Negative mg/dL (NEG) Urine Blood Trace (NEG) Urine Nitrite Negative (NEG) Urine Bilirubin Negative (NEG) Urine Urobilinogen Dipstick 0.2 mg/dL (0.2 mg/dL) Urine Leukocyte Esterase Trace (NEG) Urine RBC Occ /HPF (0-2) Urine WBC Occ /HPF (0-4) Urine Squamous Epithelial Cells Mod /LPF Urine Bacteria 0 /HPF (0-FEW) Urine Opiates Screen Neg (NEG) Urine Methadone Screen Neg (NEG) Urine Barbiturates Neg (NEG) Urine Phencyclidine Screen Neg (NEG) Urine Amphetamine/Methamphetamine Neg (NEG) Urine Benzodiazepines Screen Neg (NEG) Urine Cocaine Screen Neg (NEG) Urine Cannabinoids Screen Neg (NEG) Urine Ethyl Alcohol Neg (NEG) Glucose (Fingerstick) 274 mg/dL (70-99) White Blood Count 6.8 x10^3/uL (4.0-11.0) 7.0 x10^3/uL (4.0-11.0) Red Blood Count 4.29 x10^6/uL (3.50-5.40) 4.35 x10^6/uL (3.50-5.40) Hemoglobin 12.7 g/dL (12.0-15.5) 12.7 g/dL (12.0-15.5) Hematocrit 36.9 % (36.0-47.0) 37.6 % (36.0-47.0) Mean Corpuscular Volume 86 fL (79-100) 87 fL (79-100) Mean Corpuscular Hemoglobin 30 pg (25-35) 29 pg (25-35) Mean Corpuscular Hemoglobin Concent 34 g/dL (31-37) 34 g/dL (31-37) Red Cell Distribution Width 13.2 % (11.5-14.5) 13.4 % (11.5-14.5) Platelet Count 231 x10^3/uL (140-400) 264 x10^3/uL (140-400) Neutrophils (%) (Auto) 61 % (31-73) 56 % (31-73) Lymphocytes (%) (Auto) 30 % (24-48) 33 % (24-48) Monocytes (%) (Auto) 7 % (0-9) 7 % (0-9) Eosinophils (%) (Auto) 2 % (0-3) 3 % (0-3) Basophils (%) (Auto) 1 % (0-3) 1 % (0-3) Neutrophils # (Auto) 4.1 x10^3uL (1.8-7.7) 3.9 x10^3uL (1.8-7.7) Lymphocytes # (Auto) 2.0 x10^3/uL (1.0-4.8) 2.3 x10^3/uL (1.0-4.8) Monocytes # (Auto) 0.4 x10^3/uL (0.0-1.1) 0.5 x10^3/uL (0.0-1.1) Eosinophils # (Auto) 0.1 x10^3/uL (0.0-0.7) 0.2 x10^3/uL (0.0-0.7) Basophils # (Auto) 0.0 x10^3/uL (0.0-0.2) 0.1 x10^3/uL (0.0-0.2) Erythrocyte Sedimentation Rate 48 (0-25) Prothrombin Time 14.2 SEC (11.7-14.0) Prothromb Time International Ratio 1.2 (0.8-1.1) Sodium Level 135 mmol/L (136-145) 139 mmol/L (136-145) Potassium Level 3.1 mmol/L (3.5-5.1) 3.1 mmol/L (3.5-5.1) Chloride Level 98 mmol/L (98-107) 100 mmol/L (98-107) Carbon Dioxide Level 33 mmol/L (21-32) 31 mmol/L (21-32) Anion Gap 4 (6-14) 8 (6-14) Blood Urea Nitrogen 10 mg/dL (7-20) 10 mg/dL (7-20) Creatinine 1.0 mg/dL (0.6-1.0) 1.0 mg/dL (0.6-1.0) Estimated GFR (Cockcroft-Gault) 54.8 54.8 BUN/Creatinine Ratio 10 (6-20) Glucose Level 327 mg/dL (70-99) 154 mg/dL (70-99) Calcium Level 9.1 mg/dL (8.5-10.1) 8.8 mg/dL (8.5-10.1) Phosphorus Level 4.0 mg/dL (2.6-4.7) Magnesium Level 1.5 mg/dL (1.8-2.4) Total Bilirubin 0.5 mg/dL (0.2-1.0) Aspartate Amino Transf (AST/SGOT) 27 U/L (15-37) Alanine Aminotransferase (ALT/SGPT) 27 U/L (14-59) Alkaline Phosphatase 122 U/L (46-116) Total Protein 7.5 g/dL (6.4-8.2) Albumin 3.4 g/dL (3.4-5.0) Albumin/Globulin Ratio 0.8 (1.0-1.7) Vitamin B12 Level 340 pg/mL (247-911) Ethyl Alcohol Level < 10 mg/dL (0-10) Creatine Kinase 261 U/L (26-192) 25-Hydroxy Vitamin D Total 87.9 ng/mL (30-100) Thyroid Stimulating Hormone (TSH) 1.266 uIU/mL (0.358-3.74) Test 11/14/17 08:04 11/14/17 11:34 8/30/18 17:22 Glucose (Fingerstick) 155 mg/dL (70-99) 128 mg/dL (70-99) 200 mg/dL (70-99) Laboratory Tests Test 11/14/17 07:55 11/14/17 08:04 11/14/17 11:34 11/14/17 17:22 White Blood Count 7.0 x10^3/uL (4.0-11.0) Red Blood Count 4.35 x10^6/uL (3.50-5.40) Hemoglobin 12.7 g/dL (12.0-15.5) Hematocrit 37.6 % (36.0-47.0) Mean Corpuscular Volume 87 fL (79-100) Mean Corpuscular Hemoglobin 29 pg (25-35) Mean Corpuscular Hemoglobin Concent 34 g/dL (31-37) Red Cell Distribution Width 13.4 % (11.5-14.5) Platelet Count 264 x10^3/uL (140-400) Neutrophils (%) (Auto) 56 % (31-73) Lymphocytes (%) (Auto) 33 % (24-48) Monocytes (%) (Auto) 7 % (0-9) Eosinophils (%) (Auto) 3 % (0-3) Basophils (%) (Auto) 1 % (0-3) Neutrophils # (Auto) 3.9 x10^3uL (1.8-7.7) Lymphocytes # (Auto) 2.3 x10^3/uL (1.0-4.8) Monocytes # (Auto) 0.5 x10^3/uL (0.0-1.1) Eosinophils # (Auto) 0.2 x10^3/uL (0.0-0.7) Basophils # (Auto) 0.1 x10^3/uL (0.0-0.2) Sodium Level 139 mmol/L (136-145) Potassium Level 3.1 mmol/L (3.5-5.1) Chloride Level 100 mmol/L (98-107) Carbon Dioxide Level 31 mmol/L (21-32) Anion Gap 8 (6-14) Blood Urea Nitrogen 10 mg/dL (7-20) Creatinine 1.0 mg/dL (0.6-1.0) Estimated GFR (Cockcroft-Gault) 54.8 Glucose Level 154 mg/dL (70-99) Calcium Level 8.8 mg/dL (8.5-10.1) Creatine Kinase 261 U/L (26-192) 25-Hydroxy Vitamin D Total 87.9 ng/mL (30-100) Thyroid Stimulating Hormone (TSH) 1.266 uIU/mL (0.358-3.74) Glucose (Fingerstick) 155 mg/dL (70-99) 128 mg/dL (70-99) 200 mg/dL (70-99) BULMARO MCKEON MD Nov 14, 2017 18:42
[2017-11-14 19:00] VITALS: BP 112/51
[2017-11-14] MEDS: TEMAZEPAM 15 MG CAPSULE PO SCH (20:52)
[2017-11-14] MEDS: MIRTAZAPINE 15 MG TABLET PO SCH (20:53)
[2017-11-14] MEDS: ATORVASTATIN CALCIUM 10 MG TABLET. PO SCH (20:53)
[2017-11-14] MEDS: PANTOPRAZOLE 40 MG TABLET.DR. PO SCH (20:54)
[2017-11-14] MEDS ORDERED: ERGOCALCIFEROL (VITAMIN D2) 50,000 UNIT CAPSULE. PO SCH (21:00)
[2017-11-14 23:08] VITALS: BP 131/72
[2017-11-14] MEDS: oxyCODONE/APAP 5/325 1 TAB TABLET PO PRN (23:14)
[2017-11-15 01:14] LABS: HEMOGLOBIN A1C 9.5 % (4.8-5.6)
[2017-11-15 03:00] VITALS: BP 110/53
[2017-11-15 05:20] LABS: HEMATOCRIT 34.6 % (36.0-47.0); HEMOGLOBIN 11.9 g/dL (12.0-15.5)
[2017-11-15] MEDS: oxyCODONE/APAP 5/325 1 TAB TABLET PO PRN (05:43)
[2017-11-15 07:00] VITALS: BP_SYST 109; BP_SYST 113; BP_SYST 128; BP_DIAS 48; BP_DIAS 53; BP_DIAS 67
[2017-11-15] MEDS: MAGNESIUM OXIDE 400 MG TABLET PO SCH (08:32)
[2017-11-15] MEDS: LACTOBACILLUS RHAMNOSUS GG 1 CAPSULE. PO SCH ×2 (08:33→20:52)
[2017-11-15] MEDS: DOCUSATE SODIUM 100 MG CAPSULE. PO SCH ×2 (08:35→21:00)
[2017-11-15] MEDS: DULoxetine HCL 30 MG CAPSULE.DR PO SCH (08:35)
[2017-11-15] MEDS: buPROPion XL 150 MG TAB.ER.24H. PO SCH (08:35)
[2017-11-15] MEDS: FUROSEMIDE 40 MG TABLET. PO SCH (08:35)
[2017-11-15] MEDS: POTASSIUM CHLORIDE 10 MEQ TABLET.ER. PO SCH (08:37)
[2017-11-15] MEDS: INSULIN LISPRO 300 UNITS/3 ML INSULN.PEN. SQ SCH ×3 (08:48→17:20)
[2017-11-15] MEDS: INSULIN GLARGINE 300 UNITS/3 ML INSULN.PEN. SQ SCH ×2 (08:49→21:02)
--- NOTE | 2017-11-15 10:51 | PDOC ---
PROGRESS NOTES Chief Complaint Chief Complaint Frequent falls Bloody BM today, 10/28/17 Urinary retention, 800 mL PVR Hx partial colectomy for diverticulitis - 10 yrs ago REcent RT clavicular fx - arm sling? Geriatric Fall risk Overweight, BMI 33 Anxiety NOS History fibromyalgia History of bad peripheral neuropathy Hypertension, CAD-chronic stable History of Present Illness History of Present Illness NO bloody BM or bloody urine today No issues today except for some drowsiness, need to space out the medications or at least give it 9 a and 9 PM instead of 4 PM and 9 PM Accepted at [facility], will go there tomorrow as discussed with social work Chronic diarrhea, known to Dr. Chowdary recent colonoscopy negative. Imodium slows it down Plan: Imodium prn snu tmr for EEG today by neurology Vitals Vitals Vital Signs Date Time Temp Pulse Resp B/P (MAP) Pulse Ox O2 Delivery O2 Flow Rate FiO2 11/15/17 08:34 65 113/48 11/15/17 07:25 Room Air 11/15/17 07:00 97.5 20 93 97.5 Physical Exam General: Alert, Oriented X3, Cooperative, No acute distress Heart: Regular rate, Normal S1, Normal S2, No murmurs, Other (left pectoral region PPM pocket well healed) Lungs: Clear Abdomen: No tenderness Extremities: No edema, Normal pulses Skin: No rashes, No breakdown, No significant lesion, Other Labs LABS Laboratory Tests Test 11/14/17 11:34 11/14/17 17:22 11/14/17 20:00 11/15/17 04:20 Glucose (Fingerstick) 128 mg/dL (70-99) 200 mg/dL (70-99) 263 mg/dL (70-99) Hemoglobin 11.9 g/dL (12.0-15.5) Hematocrit 34.6 % (36.0-47.0) Mean Corpuscular Hemoglobin Concent 35 g/dL (31-37) Test 11/15/17 08:07 Glucose (Fingerstick) 174 mg/dL (70-99) Review of Systems Review of Systems A 14 point ROS was completed with the following noted as positive: Other systems reviewed and negative. \CONSTITUTIONAL: No fever or chills EYES: No recent changes SKIN: No rash or itching CARDIOVASCULAR: No chest pain, syncope, palpitations, or edema RESPIRATORY: No SOB or cough GASTROINTESTINAL: No nausea, vomiting or abdominal pain NEUROLOGICAL: No headaches or weakness ENDOCRINE: No cold or heat intolerance GENITOURINARY: No urgency or frequency of urination MUSCULOSKELETAL: No back pain or joint pain LYMPHATICS: No enlarged lymph nodes PSYCHIATRIC: No anxiety or depression Assessment and Plan Assessmemt and Plan Problems Medical Problems: (1) Fall from standing Status: Acute (2) Lumbar contusion Status: Acute Comment Review of Relevant I have reviewed the following items lucy (where applicable) has been applied. Labs Laboratory Tests Test 11/13/17 14:23 11/13/17 17:01 11/13/17 18:10 11/14/17 07:55 Urine Collection Type Unknown Urine Color Yellow Urine Clarity Clear Urine pH 6.0 Urine Specific [place] 1.010 Urine Protein Negative mg/dL (NEG-TRACE) Urine Glucose (UA) 500 mg/dL (NEG) Urine Ketones (Stick) Negative mg/dL (NEG) Urine Blood Trace (NEG) Urine Nitrite Negative (NEG) Urine Bilirubin Negative (NEG) Urine Urobilinogen Dipstick 0.2 mg/dL (0.2 mg/dL) Urine Leukocyte Esterase Trace (NEG) Urine RBC Occ /HPF (0-2) Urine WBC Occ /HPF (0-4) Urine Squamous Epithelial Cells Mod /LPF Urine Bacteria 0 /HPF (0-FEW) Urine Opiates Screen Neg (NEG) Urine Methadone Screen Neg (NEG) Urine Barbiturates Neg (NEG) Urine Phencyclidine Screen Neg (NEG) Urine Amphetamine/Methamphetamine Neg (NEG) Urine Benzodiazepines Screen Neg (NEG) Urine Cocaine Screen Neg (NEG) Urine Cannabinoids Screen Neg (NEG) Urine Ethyl Alcohol Neg (NEG) Glucose (Fingerstick) 274 mg/dL (70-99) White Blood Count 6.8 x10^3/uL (4.0-11.0) 7.0 x10^3/uL (4.0-11.0) Red Blood Count 4.29 x10^6/uL (3.50-5.40) 4.35 x10^6/uL (3.50-5.40) Hemoglobin 12.7 g/dL (12.0-15.5) 12.7 g/dL (12.0-15.5) Hematocrit 36.9 % (36.0-47.0) 37.6 % (36.0-47.0) Mean Corpuscular Volume 86 fL (79-100) 87 fL (79-100) Mean Corpuscular Hemoglobin 30 pg (25-35) 29 pg (25-35) Mean Corpuscular Hemoglobin Concent 34 g/dL (31-37) 34 g/dL (31-37) Red Cell Distribution Width 13.2 % (11.5-14.5) 13.4 % (11.5-14.5) Platelet Count 231 x10^3/uL (140-400) 264 x10^3/uL (140-400) Neutrophils (%) (Auto) 61 % (31-73) 56 % (31-73) Lymphocytes (%) (Auto) 30 % (24-48) 33 % (24-48) Monocytes (%) (Auto) 7 % (0-9) 7 % (0-9) Eosinophils (%) (Auto) 2 % (0-3) 3 % (0-3) Basophils (%) (Auto) 1 % (0-3) 1 % (0-3) Neutrophils # (Auto) 4.1 x10^3uL (1.8-7.7) 3.9 x10^3uL (1.8-7.7) Lymphocytes # (Auto) 2.0 x10^3/uL (1.0-4.8) 2.3 x10^3/uL (1.0-4.8) Monocytes # (Auto) 0.4 x10^3/uL (0.0-1.1) 0.5 x10^3/uL (0.0-1.1) Eosinophils # (Auto) 0.1 x10^3/uL (0.0-0.7) 0.2 x10^3/uL (0.0-0.7) Basophils # (Auto) 0.0 x10^3/uL (0.0-0.2) 0.1 x10^3/uL (0.0-0.2) Erythrocyte Sedimentation Rate 48 (0-25) Prothrombin Time 14.2 SEC (11.7-14.0) Prothromb Time International Ratio 1.2 (0.8-1.1) Sodium Level 135 mmol/L (136-145) 139 mmol/L (136-145) Potassium Level 3.1 mmol/L (3.5-5.1) 3.1 mmol/L (3.5-5.1) Chloride Level 98 mmol/L (98-107) 100 mmol/L (98-107) Carbon Dioxide Level 33 mmol/L (21-32) 31 mmol/L (21-32) Anion Gap 4 (6-14) 8 (6-14) Blood Urea Nitrogen 10 mg/dL (7-20) 10 mg/dL (7-20) Creatinine 1.0 mg/dL (0.6-1.0) 1.0 mg/dL (0.6-1.0) Estimated GFR (Cockcroft-Gault) 54.8 54.8 BUN/Creatinine Ratio 10 (6-20) Glucose Level 327 mg/dL (70-99) 154 mg/dL (70-99) Hemoglobin A1c 9.5 % (4.8-5.6) Calcium Level 9.1 mg/dL (8.5-10.1) 8.8 mg/dL (8.5-10.1) Phosphorus Level 4.0 mg/dL (2.6-4.7) Magnesium Level 1.5 mg/dL (1.8-2.4) Total Bilirubin 0.5 mg/dL (0.2-1.0) Aspartate Amino Transf (AST/SGOT) 27 U/L (15-37) Alanine Aminotransferase (ALT/SGPT) 27 U/L (14-59) Alkaline Phosphatase 122 U/L (46-116) Total Protein 7.5 g/dL (6.4-8.2) Albumin 3.4 g/dL (3.4-5.0) Albumin/Globulin Ratio 0.8 (1.0-1.7) Vitamin B12 Level 340 pg/mL (247-911) Ethyl Alcohol Level < 10 mg/dL (0-10) Creatine Kinase 261 U/L (26-192) 25-Hydroxy Vitamin D Total 87.9 ng/mL (30-100) Thyroid Stimulating Hormone (TSH) 1.266 uIU/mL (0.358-3.74) Test 11/14/17 08:04 11/14/17 11:34 11/14/17 17:22 11/14/17 20:00 Glucose (Fingerstick) 155 mg/dL (70-99) 128 mg/dL (70-99) 200 mg/dL (70-99) 263 mg/dL (70-99) Test 11/15/17 04:20 11/15/17 08:07 Hemoglobin 11.9 g/dL (12.0-15.5) Hematocrit 34.6 % (36.0-47.0) Mean Corpuscular Hemoglobin Concent 35 g/dL (31-37) Glucose (Fingerstick) 174 mg/dL (70-99) Laboratory Tests Test 11/14/17 11:34 11/14/17 17:22 11/14/17 20:00 11/15/17 04:20 Glucose (Fingerstick) 128 mg/dL (70-99) 200 mg/dL (70-99) 263 mg/dL (70-99) Hemoglobin 11.9 g/dL (12.0-15.5) Hematocrit 34.6 % (36.0-47.0) Mean Corpuscular Hemoglobin Concent 35 g/dL (31-37) Test 11/15/17 08:07 Glucose (Fingerstick) 174 mg/dL (70-99) Medications Current Medications Fentanyl Citrate (Fentanyl 2ml Vial) 50 mcg 1X ONCE IM Last administered on at 15:27; Start 11/13/17 at 14:00; Stop 11/13/17 at 14:02; Status DC Ondansetron HCl (Zofran) 4 mg PRN Q6HRS PRN IV NAUSEA/VOMITING 1ST CHOICE; Start 11/13/17 at 15:00 Prochlorperazine Edisylate (Compazine) 10 mg PRN Q6HRS PRN IV NAUSEA/VOMITING 2ND CHOICE; Start 11/13/17 at 15:00 Prochlorperazine (Compazine) 25 mg PRN Q12HR PRN [place] NAUSEA/VOMITING; Start at 15:00 Al Hydroxide/Mg Hydroxide (Mylanta Plus Xs) 30 ml PRN Q3HRS PRN PO HEARTBURN / GAS; Start 11/13/17 at 15:00 Calcium Carbonate/ Glycine (Tums) 500 mg PRN Q3HRS PRN PO UPSET STOMACH; Start 11/13/17 at 15:00 Oxycodone HCl (Roxicodone) 5 mg PRN Q3HRS PRN PO MOD-SEVERE PAIN 2ND CHOICE; Start 11/13/17 at 15:00 Morphine Sulfate (Morphine Sulfate) 1 mg PRN Q1HR PRN IV PAIN; Start 11/13/17 at 15:00 Ketorolac Tromethamine (Toradol 15mg Vial) 15 mg PRN Q6HRS PRN IV INFLAMMATION/ PAIN PREVENTION; Start 11/13/17 at 15:00; Stop 11/18/17 at 14:59 Acetaminophen (Tylenol) 650 mg PRN Q6HRS PRN PO Headaches, Temp > 101.5F; Start 11/13/17 at 15:00 Ibuprofen (Motrin) 400 mg PRN Q6HRS PRN PO MILD PAIN Last administered on at 09:12; Start 11/13/17 at 15:00; Stop 11/14/17 at 10:25; Status DC Docusate Sodium (Colace) 100 mg BID PO Last administered on 11/14/17at 09:13; Start 11/13/17 at 21:00 Magnesium Hydroxide (Milk Of Magnesia) 2,400 mg PRN Q12HR PRN PO CONSTIPATION; Start 11/13/17 at 15:00 Bisacodyl (Dulcolax Supp) 10 mg PRN DAILY PRN [place] CONSTIPATION; Start 11/13/17 at 15:00 Enoxaparin Sodium (Lovenox 40mg Syringe) 40 mg Q24H SQ Last administered on at 17:04; Start 11/13/17 at 16:00; Stop 11/14/17 at 10:25; Status DC Clonidine HCl (Catapres) 0.1 mg PRN Q1HR PRN PO HYPERTENSION, SEE COMMENTS; Start 11/13/17 at 15:00 Alprazolam (Xanax) 0.5 mg PRN BID PRN PO ANXIETY / AGITATION 1ST CHOICE Last administered on 11/13/17at 20:27; Start 11/13/17 at 15:15 Atorvastatin Calcium (Lipitor) 10 mg HS PO Last administered on 11/14/17at 20:53 ; Start 11/13/17 at 21:00 Duloxetine HCl (Cymbalta) 30 mg DAILY PO Last administered on 11/15/17at 08:35; Start 11/14/17 at 09:00 Gemfibrozil (Lopid) 600 mg BID PO ; Start 11/13/17 at 21:00; Stop 11/13/17 at 21 :00; Status DC Acetaminophen/ Hydrocodone Bitart (Lortab 5/325) 1 tab PRN Q4HRS PRN PO MILD PAIN Last administered on 11/14/17at 20:53; Start 11/13/17 at 15:15 Labetalol HCl (Trandate) 100 mg DAILY PO ; Start 11/14/17 at 09:00; Stop at 09:00; Status DC Oxycodone/ Acetaminophen (Percocet 5/325) 1 tab PRN Q6HRS PRN PO MOD-SEVERE PAIN 1ST CHOICE Last administered on 11/15/17at 05:43; Start 11/13/17 at 15:15 Pantoprazole Sodium (Protonix) 40 mg QHS PO Last administered on 11/14/17at 20: 54; Start 11/13/17 at 21:00 Temazepam (Restoril) 15 mg HS PRN PO INSOMNIA, MAY REPEAT X1; Start 11/13/17 at 15:15; Stop 11/13/17 at 18:21; Status DC Bupropion HCl (Wellbutrin Xl) 300 mg DAILY PO Last administered on 11/15/17at 08 :35; Start 11/14/17 at 09:00 Ergocalciferol (Vitamin D2) 50,000 unit WEEKLY PO ; Start 11/17/17 at 09:00; Stop 11/17/17 at 09:00; Status DC Gabapentin (Neurontin) 300 mg DAILY16 PO Last administered on 11/13/17at 17:04; Start 11/13/17 at 16:00; Stop 11/13/17 at 18:21; Status DC Gabapentin (Neurontin) 600 mg QHS PO Last administered on 11/14/17at 20:53; Start 11/13/17 at 21:00 Non-Formulary Medication (Insulin Aspart (Novolog Flexpen)) TIDWMEALS SQ ; Start 11/13/17 at 17:00; Status UNV Insulin Glargine (Lantus) 40 units DAILY SQ Last administered on 11/15/17at 08: 49; Start 11/14/17 at 09:00 Lactobacillus Rhamnosus (Culturelle) 1 cap BID PO Last administered on 08:33; Start 11/13/17 at 21:00 Loperamide HCl (Imodium) 2 mg PRN Q15MIN PRN PO DIARRHEA; Start 11/13/17 at 16: 45 Mirtazapine (Remeron) 15 mg QHS PO Last administered on 11/14/17 20:53; Start 11/13/17 at 21:00 Ropinirole HCl (Requip) 0.5 mg QHS PO Last administered on 11/14/17 16:05; Start 11/13/17 at 21:00 Tizanidine HCl (Zanaflex) 4 mg PRN Q8HRS PRN PO MUSCLE SPASMS Last administered on 11/15/17 01:10; Start 11/13/17 at 16:45 Insulin Human Lispro (HumaLOG) 0-9 UNITS TIDWMEALS SQ Last administered on 11/15 08:48; Start 11/13/17 at 17:00 Dextrose (Dextrose 50%-Water Syringe) 12.5 gm PRN Q15MIN PRN IV SEE COMMENTS; Start 11/13/17 at 15:15 Ondansetron HCl (Zofran) 4 mg PRN Q8HRS PRN IV NAUSEA/VOMITING; Start 11/13/17 at 15:45; Stop 11/13/17 at 18:27; Status DC Morphine Sulfate (Morphine Sulfate) 4 mg PRN Q2HR PRN IV PAIN; Start 11/13/17 at 15:45; Stop 11/14/17 at 15:44; Status DC Acetaminophen (Tylenol) 650 mg PRN Q4HRS PRN PO FEVER; Start 11/13/17 at 15:45 ; Stop 11/13/17 at 18:26; Status DC Insulin Glargine (Lantus) 25 units QHS SQ Last administered on 11/14/17 21:00 ; Start 11/13/17 at 21:00 Ergocalciferol (Vitamin D2) 50,000 unit QMTH PO Last administered on 11/14/17 20:53; Start 11/14/17 at 21:00 Gabapentin (Neurontin) 600 mg DAILY16 PO Last administered on 11/14/17 16:05; Start 11/14/17 at 16:00 Temazepam (Restoril) 15 mg HS PO Last administered on 8/30/18at 20:52; Start at 21:00 Ropinirole HCl (Requip) 0.5 mg DAILY16 PO Last administered on 11/14/17at 16:00 ; Start 11/14/17 at 16:00 Diltiazem HCl (Cardizem 24hr Cd) 120 mg DAILY PO Last administered on at 08:34; Start 11/14/17 at 09:00 Furosemide (Lasix) 40 mg DAILY PO Last administered on 11/15/17at 08:35; Start 11/14/17 at 09:00 Potassium Chloride (Klor-Con) 10 meq DAILY PO Last administered on 11/15/17at 08 :37; Start 11/14/17 at 09:00 Magnesium Oxide (Magnesium Oxide) 400 mg DAILY PO Last administered on at 08:32; Start 11/14/17 at 09:00 Citalopram Hydrobromide (CeleXA) 10 mg DAILY PO ; Start 11/14/17 at 09:30; Stop 11/14/17 at 09:30; Status DC Iohexol (Omnipaque 240 Mg/ml) 30 ml 1X ONCE PO ; Start 11/14/17 at 11:45; Stop 11/14/17 at 11:46; Status DC Info (CONTRAST GIVEN -- Rx MONITORING) 1 each PRN DAILY PRN MC SEE COMMENTS; Start 11/14/17 at 11:45; Stop 11/16/17 at 11:44 Magnesium Sulfate 50 ml @ 25 mls/hr 1X ONCE IV Last administered on 11/14/17at 14:54; Start 11/14/17 at 15:00; Stop 11/14/17 at 16:59; Status DC Potassium Chloride (Klor-Con) 20 meq 1X ONCE PO Last administered on at 16:05; Start 11/14/17 at 15:00; Stop 11/14/17 at 15:01; Status DC Tamsulosin HCl (Flomax) 0.4 mg QHS PO ; Start 11/15/17 at 21:00 Ascorbic Acid (Vitamin C) 500 mg BID PO ; Start 11/15/17 at 11:00 Active Scripts Active Levemir Flextouch (Insulin Detemir) 100 Unit/1 Ml Insuln.pen 1 Unit SQ UD 40 units before breakfast, 25 units before bedtime Novolog Flexpen (Insulin Aspart) 100 Unit/1 Ml Insuln.pen 0 Units SQ TIDWMEALS Reported Vitamin D2 (Ergocalciferol (Vitamin D2)) 50,000 Unit Capsule 50,000 Unit PO QMTH Mag-Oxide (Magnesium Oxide) 400 Mg Tablet 400 Mg PO DAILY Diltiazem 24HR Cd (Diltiazem Hcl) 120 Mg Cap.er.24h 120 Mg PO DAILY Potassium Chloride 10 Meq Tablet.er 10 Meq PO DAILY Furosemide 40 Mg Tablet 40 Mg PO DAILY Novolog Flexpen (Insulin Aspart) 100 Unit/1 Ml Insuln.pen 34 Unit SQ TIDWMEALS Ropinirole Hcl 0.5 Mg Tablet 0.5 Mg PO DAILY16 Imodium A-D (Loperamide HCl) 2 Mg Capsule 2 Mg PO TWICE WEEKLY PRN Gabapentin 600 Mg Tablet 600 Mg PO HS Gabapentin 300 Mg Capsule 600 Mg PO DAILY16 Bupropion Xl (Bupropion Hcl) 300 Mg Tab.er.24h 1 Tab PO DAILYWBKFT Requip (Ropinirole Hcl) 0.5 Mg Tablet 1 Tab PO QHS Cymbalta (Duloxetine Hcl) 30 Mg Capsule.dr 1 Cap PO DAILY Zanaflex (Tizanidine Hcl) 4 Mg Tablet 1-2 Tab PO PRN TID PRN Last dose given yesterday May take again when needed Temazepam 15 Mg Capsule 30 Mg PO HS Received dose last night Take tonight if needed Atorvastatin Calcium 10 Mg Tablet 10 Mg PO HS Not given on this admission Take when needed Pantoprazole Sodium 40 Mg Tablet.dr 1 Tab PO QHS Received dose last night Take again tonight Alprazolam 1 Mg Tablet 0.5-1 Tab PO PRN BID PRN Not given on this admission Take when needed [place] 5-325 Tablet (Acetaminophen/Hydrocodone Bitart) 1 Each Tablet 1 Tab PO PRN Q4HRS PRN Given dose at 1:45 pm May take again after 9:45 Vitals/I & O Vital Sign - Last 24 Hours 11/14/17 11/14/17 11/14/17 11/14/17 11:00 14:54 15:00 19:00 Temp 97.9 98.6 97.9 97.9 98.6 97.9 Pulse 98 72 68 Resp 18 18 18 B/P (MAP) 121/65 (83) 116/54 (74) 112/51 (71) Pulse Ox 93 94 96 O2 Delivery Room Air Room Air Room Air Room Air 11/14/17 11/14/17 11/14/17 11/14/17 20:00 20:53 21:55 23:08 Temp 98.6 98.6 Pulse 71 Resp 18 B/P (MAP) 131/72 (91) Pulse Ox 96 94 94 O2 Delivery Room Air Room Air Room Air Room Air 11/14/17 11/15/17 11/15/17 11/15/17 23:14 00:36 03:00 07:00 Temp 98.6 98.6 Pulse 78 73 Resp 18 B/P (MAP) 110/53 (72) 128/53 (78) Pulse Ox 94 94 94 O2 Delivery Room Air Room Air 11/15/17 11/15/17 11/15/17 11/15/17 07:00 07:00 07:25 08:34 Temp 97.5 97.5 Pulse 73 65 65 Resp 20 B/P (MAP) 109/67 (81) 113/48 (69) 113/48 Pulse Ox 93 O2 Delivery Room Air Room Air Intake and Output 11/14/17 11/14/17 11/15/17 15:00 23:00 07:00 Intake Total 180 ml 600 ml Output Total 600 ml Balance -420 ml 600 ml MYRIAM AMES MD Nov 15, 2017 10:51
[2017-11-15 11:00] VITALS: BP 139/70
[2017-11-15] MEDS: GABAPENTIN 300 MG CAPSULE. PO SCH ×2 (11:04→20:52)
[2017-11-15] MEDS: ASCORBIC ACID 500 MG TABLET PO SCH ×2 (11:05→20:52)
[2017-11-15] MEDS: HYDROcodone/APAP 5/325MG 1 TAB TABLET PO PRN ×3 (12:08→21:59)
--- NOTE | 2017-11-15 12:33 | PDOC ---
Subjective: Subjective: Feeling better - no blood the last time she stooled. Objective: Objective: Reviewed w/ RN - less blood this morning, plans for EEG today. Vital Signs: Vital Signs Date Time Temp Pulse Resp B/P (MAP) Pulse Ox O2 Delivery O2 Flow Rate FiO2 11/15/17 12:08 Room Air 11/15/17 11:00 97.7 84 18 139/70 (93) 95 97.7 Labs: Laboratory Tests Test 11/14/17 17:22 11/14/17 20:00 11/15/17 08:07 11/15/17 11:48 Glucose (Fingerstick) 200 mg/dL (70-99) 263 mg/dL (70-99) 174 mg/dL (70-99) 213 mg/dL (70-99) Imaging: CT A/P IMPRESSION: 1. Gastric wall thickening is not excluded on this exam although may be due to nondistention. Short segment wall thickening of the distal ileum and minimally of the descending and distal sigmoid colon is difficult to exclude on this exam as can be seen with colitis in the appropriate clinical setting although findings may be due to nondistention and peristalsis. 2. There is no urolithiasis or hydronephrosis. PE: GEN: NAD HEENT: Atraumatic, PERRLA LUNGS: CTAB HEART: RRR, no murmurs ABD: NABS, S/ND/NT, no masses EXTREMITY: No edema SKIN: No rashes, no jaundice NEURO/PSYCH: A & O 3 A/P: Hematochezia - resolving, probably hemorrhoidal, Hgb stable GERD on PPI -- Continue same per GI. GARRISON COTE Nov 15, 2017 12:32
--- NOTE | 2017-11-15 12:55 | PDOC ---
PROGRESS NOTES Subjective Subjective No new complaints. Objective Objective Vital Signs Date Time Temp Pulse Resp B/P (MAP) Pulse Ox O2 Delivery O2 Flow Rate FiO2 11/15/17 12:08 Room Air 11/15/17 11:00 97.7 84 18 139/70 (93) 95 97.7 Intake and Output 11/15/17 07:00 Intake Total 780 ml Output Total 600 ml Balance 180 ml Intake Oral 780 ml Output Urine Total 600 ml # Voids 7 # Bowel Movements 2 Physical Exam Physical Exam She is alert ,comfortable and up walking with roller walker under supervision without nay loss of balance. She continues with urinary incontinence and retention. Assessment Assessment Problems Medical Problems: (1) Fall from standing Status: Acute (2) Lumbar contusion Status: Acute Plan Plan of Care To try flomax and continue intermittent cath. and to SNF when arrangements are completed. Comment Review of Relevant I have reviewed the following items lucy (where applicable) has been applied. Labs Laboratory Tests Test 11/13/17 14:23 11/13/17 17:01 11/13/17 18:10 11/14/17 07:55 Urine Collection Type Unknown Urine Color Yellow Urine Clarity Clear Urine pH 6.0 Urine Specific Waterflow 1.010 Urine Protein Negative mg/dL (NEG-TRACE) Urine Glucose (UA) 500 mg/dL (NEG) Urine Ketones (Stick) Negative mg/dL (NEG) Urine Blood Trace (NEG) Urine Nitrite Negative (NEG) Urine Bilirubin Negative (NEG) Urine Urobilinogen Dipstick 0.2 mg/dL (0.2 mg/dL) Urine Leukocyte Esterase Trace (NEG) Urine RBC Occ /HPF (0-2) Urine WBC Occ /HPF (0-4) Urine Squamous Epithelial Cells Mod /LPF Urine Bacteria 0 /HPF (0-FEW) Urine Opiates Screen Neg (NEG) Urine Methadone Screen Neg (NEG) Urine Barbiturates Neg (NEG) Urine Phencyclidine Screen Neg (NEG) Urine Amphetamine/Methamphetamine Neg (NEG) Urine Benzodiazepines Screen Neg (NEG) Urine Cocaine Screen Neg (NEG) Urine Cannabinoids Screen Neg (NEG) Urine Ethyl Alcohol Neg (NEG) Glucose (Fingerstick) 274 mg/dL (70-99) White Blood Count 6.8 x10^3/uL (4.0-11.0) 7.0 x10^3/uL (4.0-11.0) Red Blood Count 4.29 x10^6/uL (3.50-5.40) 4.35 x10^6/uL (3.50-5.40) Hemoglobin 12.7 g/dL (12.0-15.5) 12.7 g/dL (12.0-15.5) Hematocrit 36.9 % (36.0-47.0) 37.6 % (36.0-47.0) Mean Corpuscular Volume 86 fL (79-100) 87 fL (79-100) Mean Corpuscular Hemoglobin 30 pg (25-35) 29 pg (25-35) Mean Corpuscular Hemoglobin Concent 34 g/dL (31-37) 34 g/dL (31-37) Red Cell Distribution Width 13.2 % (11.5-14.5) 13.4 % (11.5-14.5) Platelet Count 231 x10^3/uL (140-400) 264 x10^3/uL (140-400) Neutrophils (%) (Auto) 61 % (31-73) 56 % (31-73) Lymphocytes (%) (Auto) 30 % (24-48) 33 % (24-48) Monocytes (%) (Auto) 7 % (0-9) 7 % (0-9) Eosinophils (%) (Auto) 2 % (0-3) 3 % (0-3) Basophils (%) (Auto) 1 % (0-3) 1 % (0-3) Neutrophils # (Auto) 4.1 x10^3uL (1.8-7.7) 3.9 x10^3uL (1.8-7.7) Lymphocytes # (Auto) 2.0 x10^3/uL (1.0-4.8) 2.3 x10^3/uL (1.0-4.8) Monocytes # (Auto) 0.4 x10^3/uL (0.0-1.1) 0.5 x10^3/uL (0.0-1.1) Eosinophils # (Auto) 0.1 x10^3/uL (0.0-0.7) 0.2 x10^3/uL (0.0-0.7) Basophils # (Auto) 0.0 x10^3/uL (0.0-0.2) 0.1 x10^3/uL (0.0-0.2) Erythrocyte Sedimentation Rate 48 (0-25) Prothrombin Time 14.2 SEC (11.7-14.0) Prothromb Time International Ratio 1.2 (0.8-1.1) Sodium Level 135 mmol/L (136-145) 139 mmol/L (136-145) Potassium Level 3.1 mmol/L (3.5-5.1) 3.1 mmol/L (3.5-5.1) Chloride Level 98 mmol/L (98-107) 100 mmol/L (98-107) Carbon Dioxide Level 33 mmol/L (21-32) 31 mmol/L (21-32) Anion Gap 4 (6-14) 8 (6-14) Blood Urea Nitrogen 10 mg/dL (7-20) 10 mg/dL (7-20) Creatinine 1.0 mg/dL (0.6-1.0) 1.0 mg/dL (0.6-1.0) Estimated GFR (Cockcroft-Gault) 54.8 54.8 BUN/Creatinine Ratio 10 (6-20) Glucose Level 327 mg/dL (70-99) 154 mg/dL (70-99) Hemoglobin A1c 9.5 % (4.8-5.6) Calcium Level 9.1 mg/dL (8.5-10.1) 8.8 mg/dL (8.5-10.1) Phosphorus Level 4.0 mg/dL (2.6-4.7) Magnesium Level 1.5 mg/dL (1.8-2.4) Total Bilirubin 0.5 mg/dL (0.2-1.0) Aspartate Amino Transf (AST/SGOT) 27 U/L (15-37) Alanine Aminotransferase (ALT/SGPT) 27 U/L (14-59) Alkaline Phosphatase 122 U/L (46-116) Total Protein 7.5 g/dL (6.4-8.2) Albumin 3.4 g/dL (3.4-5.0) Albumin/Globulin Ratio 0.8 (1.0-1.7) Vitamin B12 Level 340 pg/mL (247-911) Ethyl Alcohol Level < 10 mg/dL (0-10) Creatine Kinase 261 U/L (26-192) 25-Hydroxy Vitamin D Total 87.9 ng/mL (30-100) Thyroid Stimulating Hormone (TSH) 1.266 uIU/mL (0.358-3.74) Test 11/14/17 08:04 11/14/17 11:34 11/14/17 17:22 11/14/17 20:00 Glucose (Fingerstick) 155 mg/dL (70-99) 128 mg/dL (70-99) 200 mg/dL (70-99) 263 mg/dL (70-99) Test 11/15/17 04:20 11/15/17 08:07 11/15/17 11:48 Hemoglobin 11.9 g/dL (12.0-15.5) Hematocrit 34.6 % (36.0-47.0) Mean Corpuscular Hemoglobin Concent 35 g/dL (31-37) Glucose (Fingerstick) 174 mg/dL (70-99) 213 mg/dL (70-99) Laboratory Tests Test 11/14/17 17:22 11/14/17 20:00 11/15/17 04:20 11/15/17 08:07 Glucose (Fingerstick) 200 mg/dL (70-99) 263 mg/dL (70-99) 174 mg/dL (70-99) Hemoglobin 11.9 g/dL (12.0-15.5) Hematocrit 34.6 % (36.0-47.0) Mean Corpuscular Hemoglobin Concent 35 g/dL (31-37) Test 11/15/17 11:48 Glucose (Fingerstick) 213 mg/dL (70-99) Medications Current Medications Fentanyl Citrate (Fentanyl 2ml Vial) 50 mcg 1X ONCE IM Last administered on at 15:27; Start 11/13/17 at 14:00; Stop 11/13/17 at 14:02; Status DC Ondansetron HCl (Zofran) 4 mg PRN Q6HRS PRN IV NAUSEA/VOMITING 1ST CHOICE; Start 11/13/17 at 15:00 Prochlorperazine Edisylate (Compazine) 10 mg PRN Q6HRS PRN IV NAUSEA/VOMITING 2ND CHOICE; Start 11/13/17 at 15:00 Prochlorperazine (Compazine) 25 mg PRN Q12HR PRN [place] NAUSEA/VOMITING; Start at 15:00 Al Hydroxide/Mg Hydroxide (Mylanta Plus Xs) 30 ml PRN Q3HRS PRN PO HEARTBURN / GAS; Start 11/13/17 at 15:00 Calcium Carbonate/ Glycine (Tums) 500 mg PRN Q3HRS PRN PO UPSET STOMACH; Start 11/13/17 at 15:00 Oxycodone HCl (Roxicodone) 5 mg PRN Q3HRS PRN PO MOD-SEVERE PAIN 2ND CHOICE; Start 11/13/17 at 15:00 Morphine Sulfate (Morphine Sulfate) 1 mg PRN Q1HR PRN IV PAIN; Start 11/13/17 at 15:00 Ketorolac Tromethamine (Toradol 15mg Vial) 15 mg PRN Q6HRS PRN IV INFLAMMATION/ PAIN PREVENTION; Start 11/13/17 at 15:00; Stop 11/18/17 at 14:59 Acetaminophen (Tylenol) 650 mg PRN Q6HRS PRN PO Headaches, Temp > 101.5F; Start 11/13/17 at 15:00 Ibuprofen (Motrin) 400 mg PRN Q6HRS PRN PO MILD PAIN Last administered on at 09:12; Start 11/13/17 at 15:00; Stop 11/14/17 at 10:25; Status DC Docusate Sodium (Colace) 100 mg BID PO Last administered on 11/14/17at 09:13; Start 11/13/17 at 21:00 Magnesium Hydroxide (Milk Of Magnesia) 2,400 mg PRN Q12HR PRN PO CONSTIPATION; Start 11/13/17 at 15:00 Bisacodyl (Dulcolax Supp) 10 mg PRN DAILY PRN [place] CONSTIPATION; Start 11/13/17 at 15:00 Enoxaparin Sodium (Lovenox 40mg Syringe) 40 mg Q24H SQ Last administered on at 17:04; Start 11/13/17 at 16:00; Stop 11/14/17 at 10:25; Status DC Clonidine HCl (Catapres) 0.1 mg PRN Q1HR PRN PO HYPERTENSION, SEE COMMENTS; Start 11/13/17 at 15:00 Alprazolam (Xanax) 0.5 mg PRN BID PRN PO ANXIETY / AGITATION 1ST CHOICE Last administered on 11/13/17at 20:27; Start 11/13/17 at 15:15 Atorvastatin Calcium (Lipitor) 10 mg HS PO Last administered on 11/14/17at 20:53 ; Start 11/13/17 at 21:00 Duloxetine HCl (Cymbalta) 30 mg DAILY PO Last administered on 11/15/17at 08:35; Start 11/14/17 at 09:00 Gemfibrozil (Lopid) 600 mg BID PO ; Start 11/13/17 at 21:00; Stop 11/13/17 at 21 :00; Status DC Acetaminophen/ Hydrocodone Bitart (Lortab 5/325) 1 tab PRN Q4HRS PRN PO MILD PAIN Last administered on 11/15/17at 12:08; Start 11/13/17 at 15:15 Labetalol HCl (Trandate) 100 mg DAILY PO ; Start 11/14/17 at 09:00; Stop at 09:00; Status DC Oxycodone/ Acetaminophen (Percocet 5/325) 1 tab PRN Q6HRS PRN PO MOD-SEVERE PAIN 1ST CHOICE Last administered on 11/15/17at 05:43; Start 11/13/17 at 15:15 Pantoprazole Sodium (Protonix) 40 mg QHS PO Last administered on 11/14/17at 20: 54; Start 11/13/17 at 21:00 Temazepam (Restoril) 15 mg HS PRN PO INSOMNIA, MAY REPEAT X1; Start 11/13/17 at 15:15; Stop 11/13/17 at 18:21; Status DC Bupropion HCl (Wellbutrin Xl) 300 mg DAILY PO Last administered on 11/15/17at 08 :35; Start 11/14/17 at 09:00 Ergocalciferol (Vitamin D2) 50,000 unit WEEKLY PO ; Start 11/17/17 at 09:00; Stop 11/17/17 at 09:00; Status DC Gabapentin (Neurontin) 300 mg DAILY16 PO Last administered on 11/13/17at 17:04; Start 11/13/17 at 16:00; Stop 11/13/17 at 18:21; Status DC Gabapentin (Neurontin) 600 mg QHS PO Last administered on 11/14/17at 20:53; Start 11/13/17 at 21:00 Non-Formulary Medication (Insulin Aspart (Novolog Flexpen)) TIDWMEALS SQ ; Start 11/13/17 at 17:00; Status UNV Insulin Glargine (Lantus) 40 units DAILY SQ Last administered on 11/15/17at 08: 49; Start 11/14/17 at 09:00 Lactobacillus Rhamnosus (Culturelle) 1 cap BID PO Last administered on at 08:33; Start 11/13/17 at 21:00 Loperamide HCl (Imodium) 2 mg PRN Q15MIN PRN PO DIARRHEA; Start 11/13/17 at 16: 45 Mirtazapine (Remeron) 15 mg QHS PO Last administered on 11/14/17at 20:53; Start 11/13/17 at 21:00 Ropinirole HCl (Requip) 0.5 mg QHS PO Last administered on 11/14/17at 16:05; Start 11/13/17 at 21:00 Tizanidine HCl (Zanaflex) 4 mg PRN Q8HRS PRN PO MUSCLE SPASMS Last administered on 11/15/17at 01:10; Start 11/13/17 at 16:45 Insulin Human Lispro (HumaLOG) 0-9 UNITS TIDWMEALS SQ Last administered on 11/15at 12:09; Start 11/13/17 at 17:00 Dextrose (Dextrose 50%-Water Syringe) 12.5 gm PRN Q15MIN PRN IV SEE COMMENTS; Start 11/13/17 at 15:15 Ondansetron HCl (Zofran) 4 mg PRN Q8HRS PRN IV NAUSEA/VOMITING; Start 11/13/17 at 15:45; Stop 11/13/17 at 18:27; Status DC Morphine Sulfate (Morphine Sulfate) 4 mg PRN Q2HR PRN IV PAIN; Start 11/13/17 at 15:45; Stop 11/14/17 at 15:44; Status DC Acetaminophen (Tylenol) 650 mg PRN Q4HRS PRN PO FEVER; Start 11/13/17 at 15:45 ; Stop 11/13/17 at 18:26; Status DC Insulin Glargine (Lantus) 25 units QHS SQ Last administered on 11/14/17at 21:00 ; Start 11/13/17 at 21:00 Ergocalciferol (Vitamin D2) 50,000 unit QMTH PO Last administered on 11/14/17at 20:53; Start 11/14/17 at 21:00 Gabapentin (Neurontin) 600 mg DAILY16 PO Last administered on 11/15/17at 11:04; Start 11/14/17 at 16:00 Temazepam (Restoril) 15 mg HS PO Last administered on 11/14/17at 20:52; Start at 21:00 Ropinirole HCl (Requip) 0.5 mg DAILY16 PO Last administered on 11/14/17at 16:00 ; Start 11/14/17 at 16:00 Diltiazem HCl (Cardizem 24hr Cd) 120 mg DAILY PO Last administered on at 08:34; Start 11/14/17 at 09:00 Furosemide (Lasix) 40 mg DAILY PO Last administered on 11/15/17at 08:35; Start 11/14/17 at 09:00 Potassium Chloride (Klor-Con) 10 meq DAILY PO Last administered on 11/15/17at 08 :37; Start 11/14/17 at 09:00 Magnesium Oxide (Magnesium Oxide) 400 mg DAILY PO Last administered on at 08:32; Start 11/14/17 at 09:00 Citalopram Hydrobromide (CeleXA) 10 mg DAILY PO ; Start 11/14/17 at 09:30; Stop 11/14/17 at 09:30; Status DC Iohexol (Omnipaque 240 Mg/ml) 30 ml 1X ONCE PO ; Start 11/14/17 at 11:45; Stop 11/14/17 at 11:46; Status DC Info (CONTRAST GIVEN -- Rx MONITORING) 1 each PRN DAILY PRN MC SEE COMMENTS; Start 11/14/17 at 11:45; Stop 11/16/17 at 11:44 Magnesium Sulfate 50 ml @ 25 mls/hr 1X ONCE IV Last administered on 11/14/17at 14:54; Start 11/14/17 at 15:00; Stop 11/14/17 at 16:59; Status DC Potassium Chloride (Klor-Con) 20 meq 1X ONCE PO Last administered on at 16:05; Start 11/14/17 at 15:00; Stop 11/14/17 at 15:01; Status DC Tamsulosin HCl (Flomax) 0.4 mg QHS PO ; Start 11/15/17 at 21:00 Ascorbic Acid (Vitamin C) 500 mg BID PO Last administered on 11/15/17at 11:05; Start 11/15/17 at 11:00 Active Scripts Active Levemir Flextouch (Insulin Detemir) 100 Unit/1 Ml Insuln.pen 1 Unit SQ UD 40 units before breakfast, 25 units before bedtime Novolog Flexpen (Insulin Aspart) 100 Unit/1 Ml Insuln.pen 0 Units SQ TIDWMEALS Reported Vitamin D2 (Ergocalciferol (Vitamin D2)) 50,000 Unit Capsule 50,000 Unit PO QMTH Mag-Oxide (Magnesium Oxide) 400 Mg Tablet 400 Mg PO DAILY Diltiazem 24HR Cd (Diltiazem Hcl) 120 Mg Cap.er.24h 120 Mg PO DAILY Potassium Chloride 10 Meq Tablet.er 10 Meq PO DAILY Furosemide 40 Mg Tablet 40 Mg PO DAILY Novolog Flexpen (Insulin Aspart) 100 Unit/1 Ml Insuln.pen 34 Unit SQ TIDWMEALS Ropinirole Hcl 0.5 Mg Tablet 0.5 Mg PO DAILY16 Imodium A-D (Loperamide HCl) 2 Mg Capsule 2 Mg PO TWICE WEEKLY PRN Gabapentin 600 Mg Tablet 600 Mg PO HS Gabapentin 300 Mg Capsule 600 Mg PO DAILY16 Bupropion Xl (Bupropion Hcl) 300 Mg Tab.er.24h 1 Tab PO DAILYWBKFT Requip (Ropinirole Hcl) 0.5 Mg Tablet 1 Tab PO QHS Cymbalta (Duloxetine Hcl) 30 Mg Capsule.dr 1 Cap PO DAILY Zanaflex (Tizanidine Hcl) 4 Mg Tablet 1-2 Tab PO PRN TID PRN Last dose given yesterday May take again when needed Temazepam 15 Mg Capsule 30 Mg PO HS Received dose last night Take tonight if needed Atorvastatin Calcium 10 Mg Tablet 10 Mg PO HS Not given on this admission Take when needed Pantoprazole Sodium 40 Mg Tablet.dr 1 Tab PO QHS Received dose last night Take again tonight Alprazolam 1 Mg Tablet 0.5-1 Tab PO PRN BID PRN Not given on this admission Take when needed [place] 5-325 Tablet (Acetaminophen/Hydrocodone Bitart) 1 Each Tablet 1 Tab PO PRN Q4HRS PRN Given dose at 1:45 pm May take again after 9:45 Vitals/I & O Vital Sign - Last 24 Hours 11/14/17 11/14/17 11/14/17 11/14/17 14:54 15:00 19:00 20:00 Temp 98.6 97.9 98.6 97.9 Pulse 72 68 Resp 18 18 B/P (MAP) 116/54 (74) 112/51 (71) Pulse Ox 94 96 O2 Delivery Room Air Room Air Room Air Room Air 11/14/17 11/14/17 11/14/17 11/14/17 20:53 21:55 23:08 23:14 Temp 98.6 98.6 Pulse 71 Resp 18 B/P (MAP) 131/72 (91) Pulse Ox 96 94 94 94 O2 Delivery Room Air Room Air Room Air Room Air 11/15/17 11/15/17 11/15/17 11/15/17 00:36 03:00 07:00 07:00 Temp 98.6 98.6 Pulse 78 73 73 Resp 18 B/P (MAP) 110/53 (72) 128/53 (78) 109/67 (81) Pulse Ox 94 94 O2 Delivery Room Air 11/15/17 11/15/17 11/15/17 11/15/17 07:00 07:25 08:30 08:34 Temp 97.5 97.5 Pulse 65 65 Resp 20 B/P (MAP) 113/48 (69) 113/48 Pulse Ox 93 O2 Delivery Room Air Room Air Room Air 11/15/17 11/15/17 11:00 12:08 Temp 97.7 97.7 Pulse 84 Resp 18 B/P (MAP) 139/70 (93) Pulse Ox 95 O2 Delivery Room Air Room Air Intake and Output 11/14/17 11/14/17 11/15/17 15:00 23:00 07:00 Intake Total 180 ml 600 ml Output Total 600 ml Balance -420 ml 600 ml JANET LAUGHLIN MD Nov 15, 2017 12:55
--- NOTE | 2017-11-15 13:18 | PDOC ---
PROGRESS NOTES Assessment Assessment MS changes. Cognitive impairment. Frequent falls, multifactorial causes. Medial right clavicle comminuted fracture from falling. Diabetic peripheral neuropathy. Hyperglycemia. DM, poorly controlled. HTN. Chronic back pain. Pacemaker. Obesity. Inactive life style. Degenerative spine disease. No evidence of cord compression or radiculopathy this time. RECOMMENDATIONS/PLAN: EEG scheduled on 11/15/17. Control hyperglycemia. Treat medical diseases. Ortho for fracture treatment. OT/PT. Weight reduction. Exercise. Discussed with her daughter at bedside on 11/15/17. C/T/L spine CT: No acute findings. HISTORY OF THE PRESENT ILLNESS: 72-y-old female patient with above medical diseases and longstanding Hx of DM but poorly controlled. She had multiple falls in the past 1 months which resulted in her right clavicle fracture. neurology is requested for consultation for MS changes, cognitive impairment and frequent falls. PAST MEDICAL HISTORY Cardiovascular: CAD (mild single vessel LAD disease on cath 09/2013 of < 20%), HTN, Other (CHB/SSS with Biotronik PPM) Pulmonary: Other ([facility]) CENTRAL NERVOUS SYSTEM: Periperal neuropathy (and restless legs), Other ( cerebral hemorrhage) GI: GERD, Irritable bowel disease Heme/Onc: Anemia NOS Psych: Anxiety, Depression Musculoskeletal: low back pain, Other (spinal stenosis) Rheumatologic: Fibromyalgia Endocrine: Diabetes PAST SURGICAL HISTORY Pacemaker (Biotronik), Cholecystectomy, Cataract Removal, Hysterectomy, Colectomy, multiple back surgeries; carpal tunnel release; breast reduction; implant spinal cord stimulator. FAMILY HISTORY Adopted ALLERGY: Reviewed. MEDICATIONS: Refer to MAR SOCIAL HISTORY: Lives at home with her . Denies current smoking, drinking, and illicit drug use. REVIEW OF SYSTEMS: Constitutional: Obesity. Head: No traumatic brain or head injury. Skin: No edema, or rash. Ear: No infection. Eyes: No vision loss or color blindness. Nose: No bleeding or purulent discharges. Hearing: No hearing decrease. Neck: No injury. Breast: No history of cancer, masses,or discharges. Cardiac: Pacemaker Placement. Pulmonary: No COPD. GI: No GI ulcer, GI bleeding. Urinary/genital: UTI. Endocrinologic: Diabetes Mellitus, obesity. Skeletomuscular: Falls. Generalized weakness. Neurological: see HP. Psychiatric: Denies drug use/abuse. Otherwise, not [id number] review of systems. PHYSICAL EXAMINATION: General appearance is in subacute distress. HEENT: Normocephalic and nontraumatic. Eyes, nose, ears, and throat are unremarkable. Neck is supple. No lymphadenopathy. No crepitus. Cardiovascular: S1, S2, regular rate and rhythm. Pulmonary: Clear to auscultation bilaterally. Abdomen: Bowel sounds are positive. Extremities: No rash, lesions, or edema. No restriction of range of motion NEUROLOGICAL EXAMINATION: Alert Oriented to time, place and person. PERRL. EOMI. CN: no focal findings. Muscle tone: within normal. Muscle strength: 5 UE, 4+ LE DTR: 1+ Plantar reflex: Flexor response bilaterally Gait: not examined in bed. Sensory exam: no abnormal findings. No cerebellar signs elicited. F-T-N test accurate. Objective Objective Vital Signs Date Time Temp Pulse Resp B/P (MAP) Pulse Ox O2 Delivery O2 Flow Rate FiO2 11/15/17 12:08 Room Air 11/15/17 11:00 97.7 84 18 139/70 (93) 95 97.7 Intake and Output 11/15/17 07:00 Intake Total 780 ml Output Total 600 ml Balance 180 ml Intake Oral 780 ml Output Urine Total 600 ml # Voids 7 # Bowel Movements 2 Vitals Signs Vitals VS - Last 72 Hours, by Label Date Time Temp Pulse Resp B/P (MAP) Pulse Ox O2 Delivery O2 Flow Rate FiO2 11/15/17 12:08 Room Air 11/15/17 11:00 97.7 84 18 139/70 (93) 95 Room Air 97.7 11/15/17 08:34 65 113/48 11/15/17 08:30 Room Air 11/15/17 07:25 Room Air 11/15/17 07:00 97.5 65 20 113/48 (69) 93 Room Air 97.5 11/15/17 07:00 73 109/67 (81) 11/15/17 07:00 73 128/53 (78) 11/15/17 03:00 98.6 78 18 110/53 (72) 94 Room Air 98.6 11/15/17 00:36 94 11/14/17 23:14 94 Room Air 11/14/17 23:08 98.6 71 18 131/72 (91) 94 Room Air 98.6 11/14/17 21:55 94 Room Air 11/14/17 20:53 96 Room Air 11/14/17 20:00 Room Air 11/14/17 19:00 97.9 68 18 112/51 (71) 96 Room Air 97.9 11/14/17 15:00 98.6 72 18 116/54 (74) 94 Room Air 98.6 11/14/17 14:54 Room Air 11/14/17 11:00 97.9 98 18 121/65 (83) 93 Room Air 97.9 11/14/17 09:13 78 130/51 11/14/17 08:15 Room Air 11/14/17 08:00 Room Air 11/14/17 07:00 97.9 78 130/51 (77) 92 Room Air 97.9 Laboratory Laboratory Laboratory Tests Test 11/14/17 17:22 11/14/17 20:00 11/15/17 04:20 11/15/17 08:07 Glucose (Fingerstick) 200 mg/dL (70-99) 263 mg/dL (70-99) 174 mg/dL (70-99) Hemoglobin 11.9 g/dL (12.0-15.5) Hematocrit 34.6 % (36.0-47.0) Mean Corpuscular Hemoglobin Concent 35 g/dL (31-37) Test 11/15/17 11:48 Glucose (Fingerstick) 213 mg/dL (70-99) Medication Medications Current Medications Ascorbic Acid (Vitamin C) 500 mg BID PO Last administered on 11/15/17at 11:05; Start 11/15/17 at 11:00 Ergocalciferol (Vitamin D2) 50,000 unit QMTH PO Last administered on 11/14/17at 20:53; Start 11/14/17 at 21:00 Ergocalciferol (Vitamin D2) 50,000 unit WEEKLY PO ; Start 11/17/17 at 09:00; Stop 11/17/17 at 09:00; Status DC Gabapentin (Neurontin) 600 mg DAILY16 PO Last administered on 11/15/17at 11:04; Start 11/14/17 at 16:00 Magnesium Sulfate 50 ml @ 25 mls/hr 1X ONCE IV Last administered on 11/14/17at 14:54; Start 11/14/17 at 15:00; Stop 11/14/17 at 16:59; Status DC Potassium Chloride (Klor-Con) 20 meq 1X ONCE PO Last administered on at 16:05; Start 11/14/17 at 15:00; Stop 11/14/17 at 15:01; Status DC Ropinirole HCl (Requip) 0.5 mg DAILY16 PO Last administered on 11/14/17at 16:00 ; Start 11/14/17 at 16:00 Tamsulosin HCl (Flomax) 0.4 mg QHS PO ; Start 11/15/17 at 21:00 Comment Review of Relevant I have reviewed the following items lucy (where applicable) has been applied. BULMARO MCKEON MD Nov 15, 2017 13:18
[2017-11-15 15:00] VITALS: BP 125/65
[2017-11-15] MEDS: rOPINIRole 1 MG TABLET. PO SCH (16:17)
--- NOTE | 2017-11-15 18:11 | EEG ---
DATE OF SERVICE: 11/15/2017 EEG NUMBER: [id number] This is a 72-year-old female patient with history of mental status changes and cognitive function impairment. EEG was requested to evaluate cerebral activity. METHOD: Twenty electrodes were applied according to the international 10-20 electrode placement system. EKG monitoring, hyperventilation, intermittent photic stimulation, monopolar and bipolar montages were routinely utilized. The record was obtained on a digital system with video monitoring. FINDINGS: 1. Background: The patient was recorded in the awake, drowsy, and brief sleep states. The overall background amplitude was 10-20 microvolts. A posterior dominant rhythm of 6-8 Hz was observed. 2. Abnormalities: No specific epileptiform discharge or electrographic seizure was seen. No focal or diffuse slowing. 3. Activation: Hyperventilation was performed with fair efforts and normal response. Intermittent photic stimulation was performed with photic driving. IMPRESSION: This electroencephalogram is a mildly abnormal study for the awake, drowsy, and sleep states. The posterior dominant rhythm of 6-8 Hz is slow for age. No focal, lateralizing, specific epileptiform discharge or electrographic seizure is seen. BULMARO MCKEON MD DR: ALEXSANDER/antonio JOB#: [id number] / [id number] OMAIRA
[2017-11-15 19:00] VITALS: BP 140/52
[2017-11-15] MEDS: rOPINIRole 0.25 MG TABLET. PO SCH (20:51)
[2017-11-15] MEDS: MIRTAZAPINE 15 MG TABLET PO SCH (20:52)
[2017-11-15] MEDS: PANTOPRAZOLE 40 MG TABLET.DR. PO SCH (20:52)
[2017-11-15] MEDS: ATORVASTATIN CALCIUM 10 MG TABLET. PO SCH (20:52)
[2017-11-15] MEDS ORDERED: TAMSULOSIN 0.4 MG CAP.ER.24H. PO SCH (21:00)
[2017-11-15] MEDS: TEMAZEPAM 15 MG CAPSULE PO SCH (21:02)
[2017-11-15 23:00] VITALS: BP 140/58
[2017-11-16] MEDS: HYDROcodone/APAP 5/325MG 1 TAB TABLET PO PRN ×3 (02:08→12:42)
[2017-11-16 03:00] VITALS: BP 118/59
[2017-11-16 07:00] VITALS: BP 97/55
[2017-11-16] MEDS: INSULIN GLARGINE 300 UNITS/3 ML INSULN.PEN. SQ SCH (08:04)
[2017-11-16] MEDS: INSULIN LISPRO 300 UNITS/3 ML INSULN.PEN. SQ SCH ×2 (08:04→11:59)
[2017-11-16] MEDS: FUROSEMIDE 40 MG TABLET. PO SCH (08:50)
[2017-11-16] MEDS: POTASSIUM CHLORIDE 10 MEQ TABLET.ER. PO SCH (08:51)
[2017-11-16] MEDS: ASCORBIC ACID 500 MG TABLET PO SCH (08:51)
[2017-11-16] MEDS: buPROPion XL 150 MG TAB.ER.24H. PO SCH (08:51)
[2017-11-16] MEDS: DOCUSATE SODIUM 100 MG CAPSULE. PO SCH ×2 (08:51→09:00)
[2017-11-16] MEDS: MAGNESIUM OXIDE 400 MG TABLET PO SCH (08:51)
[2017-11-16] MEDS: LACTOBACILLUS RHAMNOSUS GG 1 CAPSULE. PO SCH (08:51)
[2017-11-16] MEDS: DULoxetine HCL 30 MG CAPSULE.DR PO SCH (08:52)
--- NOTE | 2017-11-16 09:57 | PDOC3 ---
Discharge Summary Visit Information Date of Admission: Nov 13, 2017 Date of Discharge: Nov 16, 2017 Admitting Diagnosis Comment: Frequent falls Bloody BM today, 10/28/17 Urinary retention, 800 mL PVR Hx partial colectomy for diverticulitis - 10 yrs ago REcent RT clavicular fx - arm sling? Geriatric Fall risk Overweight, BMI 33 Anxiety NOS History fibromyalgia History of bad peripheral neuropathy Hypertension, CAD-chronic stable Final Diagnosis Problems Medical Problems: (1) Fall from standing Status: Acute (2) Lumbar contusion Status: Acute Brief Hospital Course Allergies Allergies Coded Allergies Type Severity Reaction Last Updated Verified pramipexole Allergy Severe renal failure 02/13/17 Yes Sulfa (Sulfonamide Antibiotics) Allergy Intermediate 02/13/17 Yes clavulanic acid Allergy Intermediate 02/13/17 Yes Vital Signs Vital Signs Date Time Temp Pulse Resp B/P (MAP) Pulse Ox O2 Delivery O2 Flow Rate FiO2 11/16/17 08:52 18 11/16/17 08:51 107 138/74 11/16/17 08:00 Room Air 11/16/17 07:00 97.9 90 97.9 Lab Results Laboratory Tests Test 11/14/17 11:34 11/14/17 17:22 11/14/17 20:00 11/15/17 04:20 Glucose (Fingerstick) 128 mg/dL (70-99) 200 mg/dL (70-99) 263 mg/dL (70-99) Hemoglobin 11.9 g/dL (12.0-15.5) Hematocrit 34.6 % (36.0-47.0) Mean Corpuscular Hemoglobin Concent 35 g/dL (31-37) Test 11/15/17 08:07 11/15/17 11:48 11/15/17 17:12 11/15/17 20:49 Glucose (Fingerstick) 174 mg/dL (70-99) 213 mg/dL (70-99) 264 mg/dL (70-99) 220 mg/dL (70-99) Test 11/16/17 07:55 Glucose (Fingerstick) 178 mg/dL (70-99) Laboratory Tests Test 11/15/17 11:48 11/15/17 17:12 11/15/17 20:49 11/16/17 07:55 Glucose (Fingerstick) 213 mg/dL (70-99) 264 mg/dL (70-99) 220 mg/dL (70-99) 178 mg/dL (70-99) Brief Hospital Course Ms. Nicolas is a 72 old white female who came from home was admitted basically of frequent falls and some failure to thrive symptoms. But course remarkable for very mild bleeding we were unsure and the patient was unsure if came from the vagina or the rectum but that has since resolved and hemodynamically stable. No further interventions. We will go to [facility]. Had a recent right clavicle fractures supposed to be on a sling. Comanage with physiatry, was told to be okay out of the sling No new meds medicines. Lidoderm patch may help with the chronic back pain Patient seen and examined, discussed with daughter at bedside, full code. dispo: hcr Discharge Information Condition at Discharge: Improved, Stable Disposition/Orders: Other (snu) Scheduled Atorvastatin Calcium (Atorvastatin Calcium) 10 Mg Tablet, 10 MG PO HS for FOR CHOLESTEROL, #30 Ref 0 (Reported) Not given on this admission Take when needed Entered as Reported by: JIM WARD on 03/13/15 0935 Last Action: Reviewed on 11/13/171802 by JANET WHITE Bupropion Hcl (Bupropion Xl) 300 Mg Tab.er.24h, 1 TAB PO DAILYWBKFT, #30 Ref 2 ( Reported) Entered as Reported by: SEDRICK MURILLO on 01/05/171842 Last Action: Reviewed on 11/13/171802 by JANET WHITE Diltiazem Hcl (Diltiazem 24HR Cd) 120 Mg Cap.er.24h, 120 MG PO DAILY, (Reported) Entered as Reported by: JANET WHITE on 11/13/171803 Last Action: Continued on 11/13/171820 by JANET WHITE Duloxetine Hcl (Cymbalta) 30 Mg Capsule.dr, 1 CAP PO DAILY, #30 Ref 5 (Reported) Entered as Reported by: SEDRICK MURILLO on 01/05/171842 Last Action: Reviewed on 11/13/171802 by JANET WHITE Ergocalciferol (Vitamin D2) (Vitamin D2) 50,000 Unit Capsule, 50,000 UNIT PO QMTH, (Reported) Entered as Reported by: JANET WHITE on 11/13/171803 Last Action: New Order on 11/13/171803 by JANET WHITE Furosemide (Furosemide) 40 Mg Tablet, 40 MG PO DAILY, (Reported) Entered as Reported by: JANET WHITE on 11/13/171803 Last Action: Continued on 11/13/171820 by JANET WHITE Gabapentin (Gabapentin) 300 Mg Capsule, 600 MG PO DAILY16, (Reported) Entered as Reported by: SEDRICK MURILLO on 01/05/171842 Last Action: Edited on 11/13/171802 by JANET WHITE Gabapentin (Gabapentin) 600 Mg Tablet, 600 MG PO HS, (Reported) Entered as Reported by: SEDRICK MURILLO on 01/05/171842 Last Action: Reviewed on 11/13/171802 by JANET WHITE Insulin Aspart (Novolog Flexpen) 100 Unit/1 Ml Insuln.pen, 0 UNITS SQ TIDWMEALS , #5 Prescribed by: ANTONI FALLON MD on 01/07/17 1737 Last Action: Reviewed on 11/13/171803 by JANET WHITE Insulin Aspart (Novolog Flexpen) 100 Unit/1 Ml Insuln.pen, 34 UNIT SQ TIDWMEALS, (Reported) Entered as Reported by: JANET WHITE on 11/13/171803 Last Action: New Order on 11/13/171803 by JANET WHITE Insulin Detemir (Levemir Flextouch) 100 Unit/1 Ml Insuln.pen, 1 UNIT SQ UD, #5 40 units before breakfast, 25 units before bedtime Prescribed by: ANTONI FALLON MD on 01/07/17 1740 Last Action: Reviewed on 11/13/171803 by JANET WHITE Magnesium Oxide (Mag-Oxide) 400 Mg Tablet, 400 MG PO DAILY, (Reported) Entered as Reported by: JANET WHITE on 11/13/171803 Last Action: Converted on 11/13/171820 by JANET WHITE Pantoprazole Sodium (Pantoprazole Sodium) 40 Mg Tablet.dr, 1 TAB PO QHS, #30 Ref 3 (Reported) Received dose last night Take again tonight Entered as Reported by: LEA YOU RN on 08/14/142014 Last Action: Reviewed on 11/13/171802 by JANET WHITE Potassium Chloride (Potassium Chloride) 10 Meq Tablet.er, 10 MEQ PO DAILY, ( Reported) Entered as Reported by: JANET WHITE on 11/13/171803 Last Action: Continued on 11/13/171820 by JANET WHITE Ropinirole Hcl (Requip) 0.5 Mg Tablet, 1 TAB PO QHS, #30 Ref 1 (Reported) Entered as Reported by: SEDRICK MURILLO on 01/05/171842 Last Action: Reviewed on 11/13/171802 by JANET WHITE Ropinirole Hcl (Ropinirole Hcl) 0.5 Mg Tablet, 0.5 MG PO DAILY16, (Reported) Entered as Reported by: JANET WHITE on 11/13/171803 Last Action: New Order on 11/13/171803 by JANET WHITE Temazepam (Temazepam) 15 Mg Capsule, 30 MG PO HS, (Reported) Received dose last night Take tonight if needed Entered as Reported by: JIM WARD on 03/13/15 0935 Last Action: Edited on 11/13/171802 by JANET WHITE Scheduled PRN Alprazolam (Alprazolam) 1 Mg Tablet, 0.5-1 TAB PO PRN BID PRN for ANXIETY / AGITATION, #60 (Reported) Not given on this admission Take when needed Entered as Reported by: LEA YOU RN on 08/14/142014 Last Action: Reviewed on 11/13/171802 by JANET WHITE Hydrocodone/Apap 5-325 (Kingman 5-325 Tablet) 1 Each Tablet, 1 TAB PO PRN Q4HRS PRN for BREAKTHROUGH PAIN, #40 (Reported) Given dose at 1:45 pm May take again after 9:45 Entered as Reported by: LEA YOU RN on 08/14/142012 Last Action: Reviewed on 11/13/171802 by JANET WHITE Loperamide HCl (Imodium A-D) 2 Mg Capsule, 2 MG PO TWICE WEEKLY PRN for DIARRHEA , (Reported) Entered as Reported by: SEDRICK MURILLO on 01/05/171842 Last Action: Edited on 11/13/171802 by JANET WHITE Tizanidine Hcl (Zanaflex) 4 Mg Tablet, 1-2 TAB PO PRN TID PRN for MUSCLE SPASMS , #30 (Reported) Last dose given yesterday May take again when needed Entered as Reported by: CHARLIE MARRERO on 09/08/15 1000 Last Action: Reviewed on 11/13/17 180 by MYRIAM BETANCUR MD Nov 16, 2017 09:57
[2017-11-16 11:00] VITALS: BP 135/72
--- NOTE | 2017-11-16 11:14 | PDOC ---
PROGRESS NOTES Subjective Subjective No new complaints. Objective Objective Vital Signs Date Time Temp Pulse Resp B/P (MAP) Pulse Ox O2 Delivery O2 Flow Rate FiO2 11/16/17 09:52 18 Room Air 11/16/17 08:51 107 138/74 11/16/17 07:00 97.9 90 97.9 Intake and Output 11/16/17 07:00 Intake Total 1390 ml Balance 1390 ml Intake Oral 1390 ml # Voids 4 Physical Exam Physical Exam She is alert and comfortable and alking with roller walker under supervision and she is voiding better but still admits some incontinence. Assessment Assessment Problems Medical Problems: (1) Fall from standing Status: Acute (2) Lumbar contusion Status: Acute Plan Plan of Care To SNF for continued care and she needs straight cath until PVR volume remains less than 300 ml. Comment Review of Relevant I have reviewed the following items lucy (where applicable) has been applied. Labs Laboratory Tests Test 11/14/17 11:34 11/14/17 17:22 11/14/17 20:00 11/15/17 04:20 Glucose (Fingerstick) 128 mg/dL (70-99) 200 mg/dL (70-99) 263 mg/dL (70-99) Hemoglobin 11.9 g/dL (12.0-15.5) Hematocrit 34.6 % (36.0-47.0) Mean Corpuscular Hemoglobin Concent 35 g/dL (31-37) Test 11/15/17 08:07 11/15/17 11:48 11/15/17 17:12 11/15/17 20:49 Glucose (Fingerstick) 174 mg/dL (70-99) 213 mg/dL (70-99) 264 mg/dL (70-99) 220 mg/dL (70-99) Test 11/16/17 07:55 Glucose (Fingerstick) 178 mg/dL (70-99) Laboratory Tests Test 11/15/17 11:48 11/15/17 17:12 11/15/17 20:49 11/16/17 07:55 Glucose (Fingerstick) 213 mg/dL (70-99) 264 mg/dL (70-99) 220 mg/dL (70-99) 178 mg/dL (70-99) Medications Current Medications Fentanyl Citrate (Fentanyl 2ml Vial) 50 mcg 1X ONCE IM Last administered on at 15:27; Start 11/13/17 at 14:00; Stop 11/13/17 at 14:02; Status DC Ondansetron HCl (Zofran) 4 mg PRN Q6HRS PRN IV NAUSEA/VOMITING 1ST CHOICE; Start 11/13/17 at 15:00 Prochlorperazine Edisylate (Compazine) 10 mg PRN Q6HRS PRN IV NAUSEA/VOMITING 2ND CHOICE; Start 11/13/17 at 15:00 Prochlorperazine (Compazine) 25 mg PRN Q12HR PRN IN NAUSEA/VOMITING; Start at 15:00 Al Hydroxide/Mg Hydroxide (Mylanta Plus Xs) 30 ml PRN Q3HRS PRN PO HEARTBURN / GAS; Start 11/13/17 at 15:00 Calcium Carbonate/ Glycine (Tums) 500 mg PRN Q3HRS PRN PO UPSET STOMACH; Start 11/13/17 at 15:00 Oxycodone HCl (Roxicodone) 5 mg PRN Q3HRS PRN PO MOD-SEVERE PAIN 2ND CHOICE; Start 11/13/17 at 15:00 Morphine Sulfate (Morphine Sulfate) 1 mg PRN Q1HR PRN IV PAIN; Start 11/13/17 at 15:00 Ketorolac Tromethamine (Toradol 15mg Vial) 15 mg PRN Q6HRS PRN IV INFLAMMATION/ PAIN PREVENTION; Start 11/13/17 at 15:00; Stop 11/18/17 at 14:59 Acetaminophen (Tylenol) 650 mg PRN Q6HRS PRN PO Headaches, Temp > 101.5F; Start 11/13/17 at 15:00 Ibuprofen (Motrin) 400 mg PRN Q6HRS PRN PO MILD PAIN Last administered on at 09:12; Start 11/13/17 at 15:00; Stop 11/14/17 at 10:25; Status DC Docusate Sodium (Colace) 100 mg BID PO Last administered on 11/14/17at 09:13; Start 11/13/17 at 21:00 Magnesium Hydroxide (Milk Of Magnesia) 2,400 mg PRN Q12HR PRN PO CONSTIPATION; Start 11/13/17 at 15:00 Bisacodyl (Dulcolax Supp) 10 mg PRN DAILY PRN IN CONSTIPATION; Start 11/13/17 at 15:00 Enoxaparin Sodium (Lovenox 40mg Syringe) 40 mg Q24H SQ Last administered on at 17:04; Start 11/13/17 at 16:00; Stop 11/14/17 at 10:25; Status DC Clonidine HCl (Catapres) 0.1 mg PRN Q1HR PRN PO HYPERTENSION, SEE COMMENTS; Start 11/13/17 at 15:00 Alprazolam (Xanax) 0.5 mg PRN BID PRN PO ANXIETY / AGITATION 1ST CHOICE Last administered on 11/13/17at 20:27; Start 11/13/17 at 15:15 Atorvastatin Calcium (Lipitor) 10 mg HS PO Last administered on 11/15/17at 20:52 ; Start 11/13/17 at 21:00 Duloxetine HCl (Cymbalta) 30 mg DAILY PO Last administered on 11/16/17at 08:52; Start 11/14/17 at 09:00 Gemfibrozil (Lopid) 600 mg BID PO ; Start 11/13/17 at 21:00; Stop 11/13/17 at 21 :00; Status DC Acetaminophen/ Hydrocodone Bitart (Lortab 5/325) 1 tab PRN Q4HRS PRN PO MILD PAIN Last administered on 11/16/17at 08:52; Start 11/13/17 at 15:15 Labetalol HCl (Trandate) 100 mg DAILY PO ; Start 11/14/17 at 09:00; Stop at 09:00; Status DC Oxycodone/ Acetaminophen (Percocet 5/325) 1 tab PRN Q6HRS PRN PO MOD-SEVERE PAIN 1ST CHOICE Last administered on 11/15/17at 05:43; Start 11/13/17 at 15:15 Pantoprazole Sodium (Protonix) 40 mg QHS PO Last administered on 11/15/17at 20: 52; Start 11/13/17 at 21:00 Temazepam (Restoril) 15 mg HS PRN PO INSOMNIA, MAY REPEAT X1; Start 11/13/17 at 15:15; Stop 11/13/17 at 18:21; Status DC Bupropion HCl (Wellbutrin Xl) 300 mg DAILY PO Last administered on 11/16/17 08: 51; Start 11/14/17 at 09:00 Ergocalciferol (Vitamin D2) 50,000 unit WEEKLY PO ; Start 11/17/17 at 09:00; Stop 11/17/17 at 09:00; Status DC Gabapentin (Neurontin) 300 mg DAILY16 PO Last administered on 11/13/17at 17:04; Start 11/13/17 at 16:00; Stop 11/13/17 at 18:21; Status DC Gabapentin (Neurontin) 600 mg QHS PO Last administered on 11/15/17at 20:52; Start 11/13/17 at 21:00 Non-Formulary Medication (Insulin Aspart (Novolog Flexpen)) TIDWMEALS SQ ; Start 11/13/17 at 17:00; Status UNV Insulin Glargine (Lantus) 40 units DAILY SQ Last administered on 11/16/17 08:04 ; Start 11/14/17 at 09:00 Lactobacillus Rhamnosus (Culturelle) 1 cap BID PO Last administered on at 08:51; Start 11/13/17 at 21:00 Loperamide HCl (Imodium) 2 mg PRN Q15MIN PRN PO DIARRHEA; Start 11/13/17 at 16: 45 Mirtazapine (Remeron) 15 mg QHS PO Last administered on 11/15/17at 20:52; Start 11/13/17 at 21:00 Ropinirole HCl (Requip) 0.5 mg QHS PO Last administered on 11/15/17at 20:51; Start 11/13/17 at 21:00 Tizanidine HCl (Zanaflex) 4 mg PRN Q8HRS PRN PO MUSCLE SPASMS Last administered on 11/15/17at 01:10; Start 11/13/17 at 16:45 Insulin Human Lispro (HumaLOG) 0-9 UNITS TIDWMEALS SQ Last administered on 08:04; Start 11/13/17 at 17:00 Dextrose (Dextrose 50%-Water Syringe) 12.5 gm PRN Q15MIN PRN IV SEE COMMENTS; Start 11/13/17 at 15:15 Ondansetron HCl (Zofran) 4 mg PRN Q8HRS PRN IV NAUSEA/VOMITING; Start 11/13/17 at 15:45; Stop 11/13/17 at 18:27; Status DC Morphine Sulfate (Morphine Sulfate) 4 mg PRN Q2HR PRN IV PAIN; Start 11/13/17 at 15:45; Stop 11/14/17 at 15:44; Status DC Acetaminophen (Tylenol) 650 mg PRN Q4HRS PRN PO FEVER; Start 11/13/17 at 15:45 ; Stop 11/13/17 at 18:26; Status DC Insulin Glargine (Lantus) 25 units QHS SQ Last administered on 11/15/17at 21:02 ; Start 11/13/17 at 21:00 Ergocalciferol (Vitamin D2) 50,000 unit QMTH PO Last administered on 11/14/17at 20:53; Start 11/14/17 at 21:00 Gabapentin (Neurontin) 600 mg DAILY16 PO Last administered on 11/15/17at 11:04; Start 11/14/17 at 16:00 Temazepam (Restoril) 15 mg HS PO Last administered on 11/15/17at 21:02; Start at 21:00 Ropinirole HCl (Requip) 0.5 mg DAILY16 PO Last administered on 11/15/17 16:17 ; Start 11/14/17 at 16:00 Diltiazem HCl (Cardizem 24hr Cd) 120 mg DAILY PO Last administered on 11/16/17at 08:51; Start 11/14/17 at 09:00 Furosemide (Lasix) 40 mg DAILY PO Last administered on 11/16/17at 08:50; Start at 09:00 Potassium Chloride (Klor-Con) 10 meq DAILY PO Last administered on 11/16/17 08: 51; Start 11/14/17 at 09:00 Magnesium Oxide (Magnesium Oxide) 400 mg DAILY PO Last administered on 08:51; Start 11/14/17 at 09:00 Citalopram Hydrobromide (CeleXA) 10 mg DAILY PO ; Start 11/14/17 at 09:30; Stop 11/14/17 at 09:30; Status DC Iohexol (Omnipaque 240 Mg/ml) 30 ml 1X ONCE PO ; Start 11/14/17 at 11:45; Stop 11/14/17 at 11:46; Status DC Info (CONTRAST GIVEN -- Rx MONITORING) 1 each PRN DAILY PRN MC SEE COMMENTS; Start 11/14/17 at 11:45; Stop 11/16/17 at 11:44 Magnesium Sulfate 50 ml @ 25 mls/hr 1X ONCE IV Last administered on 11/14/17at 14:54; Start 11/14/17 at 15:00; Stop 11/14/17 at 16:59; Status DC Potassium Chloride (Klor-Con) 20 meq 1X ONCE PO Last administered on at 16:05; Start 11/14/17 at 15:00; Stop 11/14/17 at 15:01; Status DC Tamsulosin HCl (Flomax) 0.4 mg QHS PO Last administered on 11/15/17at 20:52; Start 11/15/17 at 21:00 Ascorbic Acid (Vitamin C) 500 mg BID PO Last administered on 11/16/17at 08:51; Start 11/15/17 at 11:00 Active Scripts Active Reported Vitamin D2 (Ergocalciferol (Vitamin D2)) 50,000 Unit Capsule 50,000 Unit PO QMTH Mag-Oxide (Magnesium Oxide) 400 Mg Tablet 400 Mg PO DAILY Diltiazem 24HR Cd (Diltiazem Hcl) 120 Mg Cap.er.24h 120 Mg PO DAILY Potassium Chloride 10 Meq Tablet.er 10 Meq PO DAILY Furosemide 40 Mg Tablet 40 Mg PO DAILY Ropinirole Hcl 0.5 Mg Tablet 0.5 Mg PO DAILY16 Imodium A-D (Loperamide HCl) 2 Mg Capsule 2 Mg PO TWICE WEEKLY PRN Gabapentin 600 Mg Tablet 600 Mg PO HS Gabapentin 300 Mg Capsule 600 Mg PO DAILY16 Bupropion Xl (Bupropion Hcl) 300 Mg Tab.er.24h 1 Tab PO DAILYWBKFT Requip (Ropinirole Hcl) 0.5 Mg Tablet 1 Tab PO QHS Cymbalta (Duloxetine Hcl) 30 Mg Capsule.dr 1 Cap PO DAILY Zanaflex (Tizanidine Hcl) 4 Mg Tablet 1-2 Tab PO PRN TID PRN Last dose given yesterday May take again when needed Temazepam 15 Mg Capsule 30 Mg PO HS Received dose last night Take tonight if needed Atorvastatin Calcium 10 Mg Tablet 10 Mg PO HS Not given on this admission Take when needed Pantoprazole Sodium 40 Mg Tablet. 1 Tab PO QHS Received dose last night Take again tonight Alprazolam 1 Mg Tablet 0.5-1 Tab PO PRN BID PRN Not given on this admission Take when needed Jay 5-325 Tablet (Acetaminophen/Hydrocodone Bitart) 1 Each Tablet 1 Tab PO PRN Q4HRS PRN Given dose at 1:45 pm May take again after 9:45 Vitals/I & O Vital Sign - Last 24 Hours 11/15/17 11/15/17 11/15/17 11/15/17 12:08 15:00 17:21 19:00 Temp 97.7 97.7 97.7 97.7 Pulse 80 79 Resp 18 18 B/P (MAP) 125/65 (85) 140/52 (81) Pulse Ox 95 96 O2 Delivery Room Air Room Air Room Air Room Air 11/15/17 11/15/17 11/15/17 11/15/17 20:00 21:59 23:00 23:00 Temp 97.9 97.9 Pulse 80 Resp 18 B/P (MAP) 140/58 (85) Pulse Ox 96 96 95 O2 Delivery Room Air Room Air Room Air 11/16/17 11/16/17 11/16/17 11/16/17 02:08 03:00 07:00 08:00 Temp 97.9 97.9 97.9 97.9 Pulse 85 95 Resp 18 17 B/P (MAP) 118/59 (78) 97/55 (69) Pulse Ox 96 90 90 O2 Delivery Room Air Room Air Room Air Room Air 11/16/17 11/16/17 11/16/17 08:51 08:52 09:52 Pulse 107 Resp 18 18 B/P (MAP) 138/74 O2 Delivery Room Air Intake and Output 11/15/17 11/15/17 11/16/17 15:00 23:00 07:00 Intake Total 360 ml 180 ml 850 ml Balance 360 ml 180 ml 850 ml JANET LAUGHLIN MD Nov 16, 2017 11:14
[2017-11-17] MEDS ORDERED: ERGOCALCIFEROL (VITAMIN D2) 50,000 UNIT CAPSULE. PO SCH (09:00)
== END 2017-11-16 13:04 | DRG 947 ==
LOC: ER 13:37 → 5 NORTH 15:00
PROVIDERS: ADMIT Internal Medicine; ATTEND Internal Medicine
DX: R41.82 Altered mental status, unspecified (principal); G93.41 Metabolic encephalopathy; K62.5 Hemorrhage of anus and rectum; R62.7 Adult failure to thrive; K21.9 Gastro-esophageal reflux disease without esophagitis; Z68.33 Body mass index [BMI] 33.0-33.9, adult; M79.7 Fibromyalgia; E11.42 Type 2 diabetes mellitus with diabetic polyneuropathy; I10 Essential (primary) hypertension; R29.6 Repeated falls; I25.10 Atherosclerotic heart disease of native coronary artery without angina pectoris; E78.5 Hyperlipidemia, unspecified; F41.9 Anxiety disorder, unspecified; F32.9 Major depressive disorder, single episode, unspecified; G25.81 Restless legs syndrome; M19.90 Unspecified osteoarthritis, unspecified site; M54.5 Low back pain; W18.30XA Fall on same level, unspecified, initial encounter; E87.6 Hypokalemia; E83.42 Hypomagnesemia; G47.33 Obstructive sleep apnea (adult) (pediatric); D64.9 Anemia, unspecified; E11.65 Type 2 diabetes mellitus with hyperglycemia; G89.29 Other chronic pain; E66.9 Obesity, unspecified; K58.9 Irritable bowel syndrome, unspecified; M81.0 Age-related osteoporosis without current pathological fracture; Z95.0 Presence of cardiac pacemaker; Z90.710 Acquired absence of both cervix and uterus; Z88.1 Allergy status to other antibiotic agents; Z98.49 Cataract extraction status, unspecified eye; Z86.73 Personal history of transient ischemic attack (TIA), and cerebral infarction without residual deficits; Z68.34 Body mass index [BMI] 34.0-34.9, adult; Z88.8 Allergy status to other drugs, medicaments and biological substances; Y93.89 Activity, other specified; Y92.89 Other specified places as the place of occurrence of the external cause; Z79.4 Long term (current) use of insulin; Y99.8 Other external cause status; Z90.49 Acquired absence of other specified parts of digestive tract; Z83.3 Family history of diabetes mellitus; Z82.49 Family history of ischemic heart disease and other diseases of the circulatory system; Z80.9 Family history of malignant neoplasm, unspecified
CPT/HCPCS: 36415; 70450; 72125; 72128; 72131; 73030; 74176; 80048; 80053; 80307; 81001; 82040; 82306; 82550; 82607; 82962; 83036; 83735; 84100; 84443; 85014; 85018; 85025; 85610; 85651; 87086; 87186; 95816; 96372; G0480; J1650; J1815; J3010; J3475; 97530; 97535; 99285-25; G0479

== ENCOUNTER 2018-02-23 00:44 | Emergency (ER) | payer MEDICARE ==
[~2018-02-23] VITALS: Ht 160 cm; Wt 83.9 kg
[~2018-02-23 00:44] MED LIST changes: +AMOX1TAB10 PO; +CLON1TAB11 PO; -CLON1TAB4 PO; +DILT120C85 PO; +ERGO500027 PO; -GABA-586 PO; +GABA300C18 PO; -GEMF600T4 PO; +GEMF600T8 PO; -HYDR-2758 PO; +HYDR-2761 PO; +HYDR-3164 PO; -HYDR-971 PO; +MAGN400T22 PO; -OXYC-323 PO; +OXYC1TAB15 PO; +POTA10TA12 PO; +ROPI0.5T2 PO
[2018-02-23 00:50] VITALS: BP 166/104
--- NOTE | 2018-02-23 01:12 | PHYS DOC ---
Past Medical History Past Medical History: Angina, Depression, Diabetes-Type II, Fibromyalgia, GERD , High Cholesterol, Hypertension, Stroke Additional Past Medical Histor: neuropathy, RLS, subarachnoid hemorrhage(2002) , VERTIGO, EDEMA Past Surgical History: Cholecystectomy, Hysterectomy, Pacemaker Additional Past Surgical Histo: "10 BACK SURGERIES", COLON RESECTION, BREAST REDUCTION Alcohol Use: None Drug Use: None Adult General Chief Complaint Chief Complaint: BLOOD SUGAR PROBLEM [facility] HPI Patient is a 72-year-old female who presents with complaint of severe bilateral leg pain. Patient has history of diabetes and states that her blood sugar read high at home and then she took her insulin. Accu-Chek here was 257. Patient states that she takes a number of medications for her diabetic neuropathy and states that they're just not helping. She states that usually when she comes here she gets to wanted her her pain. She denies any fever, nausea or vomiting. She rates her pain to be a 10 out of 10. Patient states that she just needs something for her pain. Review of Systems Review of Systems Constitutional: Denies fever or chills [] Respiratory: Denies cough or shortness of breath [] Cardiovascular: No additional information not addressed in HPI [] Musculoskeletal: Complains of bilateral leg pain [] Integument: Denies rash or skin lesions [] Current Medications Current Medications Current Medications Medications (Trade) Dose Ordered Sig/[facility] Start Time Stop Time Status Last Admin Dose Admin Hydromorphone HCl (Dilaudid) 1 mg 1X ONCE 02/23/18 01:30 02/23/18 01:31 DC 02/23/18 01:22 1 MG Allergies Allergies Allergies Coded Allergies Type Severity Reaction Last Updated Verified pramipexole Allergy Severe renal failure 02/13/17 Yes Sulfa (Sulfonamide Antibiotics) Allergy Intermediate 02/13/17 Yes clavulanic acid Allergy Intermediate 02/13/17 Yes Physical Exam Physical Exam Constitutional: Well developed, well nourished, no acute distress, non-toxic appearance. [] Neck: Normal range of motion, no tenderness, supple, no stridor. [] Cardiovascular: Regular rate and rhythm [] Lungs & Thorax: Bilateral breath sounds clear to auscultation [] Abdomen: Bowel sounds normal, soft. [] Skin: Warm, dry, no erythema, no rash. [] Extremities: Patient has diffuse bilateral leg tenderness. There is no clubbing , cyanosis or significant edema. [] Neurologic: Alert and oriented X 3, normal motor function, normal sensory function, no focal deficits noted. [] Current Patient Data Vital Signs Vital Signs Date Time Temp Pulse Resp B/P (MAP) Pulse Ox O2 Delivery O2 Flow Rate FiO2 02/23/18 01:22 98 Room Air 02/23/18 00:50 97.3 88 20 166/104 (124) 97.3 Lab Values Laboratory Tests Test 02/23/18 00:56 Glucose (Fingerstick) 257 mg/dL (70-99) H EKG EKG [] Radiology/Procedures Radiology/Procedures [] Course & Med Decision Making Course & Med Decision Making Pertinent Labs and Imaging studies reviewed. (See chart for details) [] Dragon Disclaimer Dragon Disclaimer This electronic medical record was generated, in whole or in part, using a voice recognition dictation system. Departure Departure Impression: Primary Impression: Diabetic neuropathy, painful Disposition: 01 HOME, SELF-CARE Condition: STABLE Referrals: LO LEDESMA MD (PCP) Patient Instructions: Diabetic Neuropathy ROSAS ELIAS Jr. DO Feb 23, 2018 01:12
[2018-02-23] MEDS: HYDROmorphone 2 MG/ML VIAL IM ONE (01:22)
== END 2018-02-23 01:40 | disposition home or self-care (01) ==
LOC: ER 00:44
DX: E11.40 Type 2 diabetes mellitus with diabetic neuropathy, unspecified (principal); E78.00 Pure hypercholesterolemia, unspecified; K21.9 Gastro-esophageal reflux disease without esophagitis; I10 Essential (primary) hypertension; Z86.73 Personal history of transient ischemic attack (TIA), and cerebral infarction without residual deficits; G25.81 Restless legs syndrome; Z95.0 Presence of cardiac pacemaker; Z90.49 Acquired absence of other specified parts of digestive tract; Z90.710 Acquired absence of both cervix and uterus; Z98.890 Other specified postprocedural states; Z88.2 Allergy status to sulfonamides; Z88.8 Allergy status to other drugs, medicaments and biological substances
CPT/HCPCS: 82962; 96372; 99283; J1170

== ENCOUNTER 2018-03-20 08:01 | Emergency (ER) | payer MEDICARE ==
[~2018-03-20] VITALS: Ht 160 cm; Wt 84.8 kg
[2018-03-20] MEDS ORDERED: ONDANSETRON PF 4 MG/2 ML VIAL. ONE (08:06)
[2018-03-20] MEDS ORDERED: IV NORMAL SALINE 1000ML BAG 1,000 ML IV SCH (08:20)
--- NOTE | 2018-03-20 08:27 | PHYS DOC ---
Past Medical History Past Medical History: Angina, Depression, Diabetes-Type II, Fibromyalgia, GERD , High Cholesterol, Hypertension, Stroke Additional Past Medical Histor: neuropathy, RLS, subarachnoid hemorrhage(2002) , VERTIGO, EDEMA Past Surgical History: Cholecystectomy, Hysterectomy, Pacemaker Additional Past Surgical Histo: "10 BACK SURGERIES", COLON RESECTION, BREAST REDUCTION Alcohol Use: None Drug Use: None Adult General Chief Complaint Chief Complaint: NAUSEA/VOMITING/DIARRHA HPI HPI Patient is a 72-year-old female who presents to the emergency department for evaluation. The past 3 days, she states she has had a productive cough, productive of occasionally whitish, occasionally greenish sputum. She also reports some generalized abdominal discomfort, and has had nausea with 2 episodes of vomiting in the past 24 hours. She states she has had diarrhea for the past several months, but no new diarrhea. She is currently taking Macrobid, for the past week, for a UTI. She is uncertain if she has had any fevers or not. She admits to some nasal congestion. She denies any chest pain, or significant shortness of breath. There are no alleviating or exacerbating factors to the patient's symptoms. Review of Systems Review of Systems Constitutional: Denies chills. Uncertain about fevers. Reports malaise. [] Eyes: Denies change in visual acuity, redness, or eye pain [] HENT: Denies otalgia or sore throat [] Respiratory: Denies pleuritic pain or shortness of breath [] Cardiovascular: The patient denies any shortness of breath, chest pain, palpitations, or orthopnea[] GI: No additional information not addressed in HPI [] : Denies dysuria or hematuria [] Musculoskeletal: Denies new back pain or joint pain [] Integument: Denies rash or skin lesions [] Neurologic: Denies headache, focal weakness or sensory changes [] Endocrine: Denies polyuria or polydipsia [] All other systems were reviewed and found to be within normal limits, except as documented in this note. Current Medications Current Medications Current Medications Medications (Trade) Dose Ordered Sig/Marly Start Time Stop Time Status Last Admin Dose Admin Info (CONTRAST GIVEN -- Rx MONITORING) 1 each PRN DAILY PRN 03/20/18 09:45 03/22/18 09:44 Iohexol (Omnipaque 300 Mg/ml) 75 ml 1X ONCE 03/20/18 09:30 03/20/18 09:35 DC 03/20/18 09:33 75 ML Morphine Sulfate (Morphine Sulfate) 4 mg 1X ONCE 03/20/18 09:30 03/20/18 09:35 DC 03/20/18 09:56 4 MG Ondansetron HCl (Zofran) 4 mg 1X ONCE 03/20/18 08:30 03/20/18 08:31 DC 03/20/18 08:58 4 MG Oseltamivir Phosphate (Tamiflu) 75 mg 1X ONCE 03/20/18 09:45 03/20/18 09:48 DC 03/20/18 09:57 75 MG Sodium Chloride 1,000 ml @ 1,000 mls/hr Q1H 03/20/18 08:20 03/20/18 09:19 DC 03/20/18 08:46 1,000 MLS/HR Allergies Allergies Allergies Coded Allergies Type Severity Reaction Last Updated Verified pramipexole Allergy Severe renal failure 02/13/17 Yes Sulfa (Sulfonamide Antibiotics) Allergy Intermediate 02/13/17 Yes clavulanic acid Allergy Intermediate 02/13/17 Yes Physical Exam Physical Exam PHYSICAL EXAM: CONSTITUTIONAL: Well developed, well nourished HEAD: normocephalic, atraumatic EENT: PERRL, EOMI. Conjunctivae normal color, sclerae non-icteric; moist mucous membranes. NECK: Supple, non-tender; no meningismus. LUNGS: Lungs CTA, breathing even and unlabored. Normal air movement. HEART: Mild tachycardia, Regular rhythm, no murmur CHEST: No deformity; non-tender ABDOMEN: The abdomen is soft, there is mild diffuse tenderness to palpation of the entire abdomen without focal tenderness, rebound, or guarding, normal bowel sounds are present, no masses or bruits. EXTREM: Normal ROM; no deformity, no calf tenderness. Normal pulses palpable in all extremities. There is no pedal edema. SKIN: No rash; no diaphoresis NEURO: Alert; normal speech and cognition; CN's grossly intact; strength grossly intact without focal deficit. BACK: No CVA TTP. Current Patient Data Vital Signs Vital Signs Date Time Temp Pulse Resp B/P (MAP) Pulse Ox O2 Delivery O2 Flow Rate FiO2 03/20/18 09:56 16 93 Room Air 03/20/18 09:42 101 143/63 (89) 03/20/18 08:17 99.1 99.1 Lab Values Laboratory Tests Test 03/20/18 08:40 03/20/18 08:45 03/20/18 10:15 White Blood Count 8.2 x10^3/uL (4.0-11.0) Red Blood Count 4.97 x10^6/uL (3.50-5.40) Hemoglobin 14.3 g/dL (12.0-15.5) Hematocrit 40.9 % (36.0-47.0) Mean Corpuscular Volume 82 fL (79-100) Mean Corpuscular Hemoglobin 29 pg (25-35) Mean Corpuscular Hemoglobin Concent 35 g/dL (31-37) Red Cell Distribution Width 13.6 % (11.5-14.5) Platelet Count 234 x10^3/uL (140-400) Neutrophils (%) (Auto) 79 % (31-73) H Lymphocytes (%) (Auto) 14 % (24-48) L Monocytes (%) (Auto) 7 % (0-9) Eosinophils (%) (Auto) 1 % (0-3) Basophils (%) (Auto) 0 % (0-3) Neutrophils # (Auto) 6.5 x10^3uL (1.8-7.7) Lymphocytes # (Auto) 1.1 x10^3/uL (1.0-4.8) Monocytes # (Auto) 0.5 x10^3/uL (0.0-1.1) Eosinophils # (Auto) 0.0 x10^3/uL (0.0-0.7) Basophils # (Auto) 0.0 x10^3/uL (0.0-0.2) Sodium Level 136 mmol/L (136-145) Potassium Level 3.2 mmol/L (3.5-5.1) L Chloride Level 94 mmol/L (98-107) L Carbon Dioxide Level 32 mmol/L (21-32) Anion Gap 10 (6-14) Blood Urea Nitrogen 9 mg/dL (7-20) Creatinine 0.9 mg/dL (0.6-1.0) Estimated GFR (Cockcroft-Gault) 61.9 BUN/Creatinine Ratio 10 (6-20) Glucose Level 294 mg/dL (70-99) H Lactic Acid Level 1.9 mmol/L (0.4-2.0) Calcium Level 9.4 mg/dL (8.5-10.1) Total Bilirubin 0.5 mg/dL (0.2-1.0) Aspartate Amino Transferase (AST) 59 U/L (15-37) H Alanine Aminotransferase (ALT) 65 U/L (14-59) H Alkaline Phosphatase 142 U/L (46-116) H Troponin I Quantitative 0.047 ng/mL (0.000-0.055) KE-Nla-T-Type Natriuretic Peptide 1358 pg/mL (0-124) H Total Protein 7.8 g/dL (6.4-8.2) Albumin 3.5 g/dL (3.4-5.0) Albumin/Globulin Ratio 0.8 (1.0-1.7) L Lipase 151 U/L (73-393) Influenza Type A Antigen Positive (NEGATIVE) Influenza Type B Antigen Negative (NEGATIVE) Urine Collection Type Unknown Urine Color Yellow Urine Clarity Clear Urine pH 6.5 Urine Specific Ault >=1.030 Urine Protein Negative mg/dL (NEG-TRACE) Urine Glucose (UA) 100 mg/dL (NEG) Urine Ketones (Stick) Trace mg/dL (NEG) Urine Blood Negative (NEG) Urine Nitrite Negative (NEG) Urine Bilirubin Negative (NEG) Urine Urobilinogen Dipstick 0.2 mg/dL (0.2 mg/dL) Urine Leukocyte Esterase Small (NEG) Urine RBC 0 /HPF (0-2) Urine WBC 11-20 /HPF (0-4) Urine Squamous Epithelial Cells Mod /LPF Urine Bacteria Few /HPF (0-FEW) Urine Hyaline Casts Moderate /HPF Urine Mucus Slight /LPF Laboratory Tests 03/20/18 08:40 Laboratory Tests 03/20/18 08:40 EKG EKG [Apparent AV paced rhythm at a rate of 106 beats for minute, rightward axis, QRS widening secondary repolarization abnormality w/otherwise normal intervals, there are no acute ischemic ST/T changes.] Radiology/Procedures Radiology/Procedures [PROCEDURE: CHEST PA & LATERAL EXAM: PA and Lateral Views of the Chest DATE: 03/20/2018 8:41 AM INDICATION: COUGH, WEAKNESS X 3 DAYS COMPARISON: 12/03/2017 FINDINGS/ IMPRESSION: Cardiac generator pack obscures a portion left chest with leads in stable position. Heart is not enlarged. No focal parenchymal airspace opacity. No pleural effusion or pneumothorax. ] PROCEDURE: CT ABD PELV W/ IV CONTRST ONLY CT ABD PELV W/ IV CONTRST ONLY History: Abdominal pain, nausea and vomiting Technique: Postcontrast CT imaging was performed of the abdomen and pelvis, multiplanar reconstruction images submitted. One or more of the following individualized dose reduction techniques were utilized for this examination: 1. Automated exposure control 2. Adjustment of the mA and/or kV according to patient size 3. Use of iterative reconstruction technique. Comparison: November 14, 2017 Findings: There is again mild linear fibrotic change right lower lobe. There is no pleural fluid. Note is made of leads from electronic cardiac device, not fully included. There is no new focal abnormality of the liver, spleen, pancreas. There has been cholecystectomy. There is no adrenal nodularity. Both kidneys enhance, no significant hydronephrosis. There is again mild strandy change of the bilateral perinephric fat. There is a small hypodense lesion of the mid right kidney too small to characterize about 0.6 cm. Accurate evaluation of bowel is limited without oral contrast. There is no bowel dilatation, free air, free fluid. There has been appendectomy. There has been hysterectomy. There is no significant inflammatory type change localized about the bowel. Mild small bowel wall thickening in the left abdomen is possible although poorly evaluated without oral contrast. There has been anterior left hernia repair in the abdomen and pelvis as seen previously. There is again multilevel posterolateral fusion hardware L1-L5. There are spinal stimulator leads. There is similar degree of mild superior height loss of T12, greater degree of mild superior endplate concavity of T10 without osseous retropulsion. There is degenerative disc disease of visualized inferior thoracic levels. IMPRESSION: 1. There may be mild small bowel wall thickening in the left abdomen as may be seen with enteritis, no other significant acute abnormality identified. There has been cholecystectomy and appendectomy. 2. Compared with the October 2017 exam, there is somewhat greater degree of mild superior T10 endplate compression deformity, correlation with any point tenderness advised. There is multilevel posterolateral fusion hardware of the lumbar spine. Course & Med Decision Making Course & Med Decision Making Pertinent Labs and Imaging studies reviewed. (See chart for details) [Patient remains stable. I discussed test results, the need for close follow-up , and return precautions.] I discussed the importance of follow-up with her PCP , for further evaluation to definitively eliminate the possibility of congestive heart failure, although I'm not certain that this relates to the patient's acute symptoms at this time. 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 Fred Disclaimer Dragon Disclaimer This electronic medical record was generated, in whole or in part, using a voice recognition dictation system. Departure Departure Impression: Primary Impression: Influenza Additional Impression: Enteritis Disposition: HOME, SELF-CARE Condition: STABLE Referrals: LO LEDESMA MD (PCP) Patient Instructions: Influenza A (H1N1), Viral Gastroenteritis Scripts Oseltamivir Phosphate (TAMIFLU) 75 Mg Capsule 1 CAP PO BID, #10 CAP Prov: FALGUNI DILLARD MD 03/20/18 Ondansetron Hcl (ZOFRAN) 4 Mg Tablet 1 TAB PO Q6HRS PRN for NAUSEA/VOMITING, #20 TAB Prov: FALGUNI DILLARD MD 03/20/18 Problem Qualifiers FALGUNI DILLARD MD Mar 20, 2018 08:27
[2018-03-20] MEDS ORDERED: ONDANSETRON PF 4 MG/2 ML VIAL. IV ONE (08:30)
--- NOTE | 2018-03-20 08:48 | EKG ---
[facility] [address] [place] [address] Test Date: 2018-03-20 Test Time: 08:32:03 Pat Name: GIORGIO LOVE Department: Room: Gender: F [employer] Worker: : 1945 Requested By: FALGUNI DILLARD Order Number: [id number] Reading MD: Measurements Intervals [place] Rate: 106 P: -136 NV: 180 QRS: 83 QRSD: 142 T: -10 QT: 358 QTc: 477 Interpretive Statements SUPRAVENTRICULAR RHYTHM NON SPECIFIC INTRAVENTRICULAR BLOCK QRS(T) CONTOUR ABNORMALITY CONSISTENT WITH ANTEROSEPTAL INFARCT PROBABLY OLD ABNORMAL ECG RI6.01 No previous ECG available for comparison
--- NOTE | 2018-03-20 09:04 | RAD ---
EXAM: PA and Lateral Views of the Chest DATE: 03/20/2018 8:41 AM INDICATION: COUGH, WEAKNESS X 3 DAYS COMPARISON: 12/03/2017 FINDINGS/ IMPRESSION: Cardiac generator pack obscures a portion left chest with leads in stable position. Heart is not enlarged. No focal parenchymal airspace opacity. No pleural effusion or pneumothorax. Electronically signed by: Vance Rob MD (03/20/2018 9:00 AM) [facility]
[2018-03-20 09:07] LABS: BASO % 0 % (0-3); EOS % 1 % (0-3); HEMATOCRIT 40.9 % (36.0-47.0); HEMOGLOBIN 14.3 g/dL (12.0-15.5); LYMPH # 1.1 x10^3/uL (1.0-4.8); LYMPH % 14 % (24-48); MEAN CORPUSCULAR HEMOGLOBIN 29 pg (25-35); MEAN CORPUSCULAR HGB CONC 35 g/dL (31-37); MEAN CORPUSCULAR VOLUME 82 fL (79-100); MONO # 0.5 x10^3/uL (0.0-1.1); MONO % 7 % (0-9); NEUT # 6.5 x10^3uL (1.8-7.7); NEUT % 79 % (31-73); PLATELET COUNT 234 x10^3/uL (140-400); RED BLOOD COUNT 4.97 x10^6/uL (3.50-5.40); RED CELL DISTRIBUTION WIDTH 13.6 % (11.5-14.5); WHITE BLOOD COUNT 8.2 x10^3/uL (4.0-11.0)
[2018-03-20 09:16] LABS: CALCIUM 9.4 mg/dL (8.5-10.1); CREATININE 0.9 mg/dL (0.6-1.0); GFR 61.9; POTASSIUM 3.2 mmol/L (3.5-5.1)
[2018-03-20 09:28] LABS: ALBUMIN 3.5 g/dL (3.4-5.0); ALBUMIN/GLOBULIN RATIO 0.8 (1.0-1.7); TOTAL BILIRUBIN 0.5 mg/dL (0.2-1.0); TOTAL PROTEIN 7.8 g/dL (6.4-8.2)
[2018-03-20] MEDS ORDERED: IOHEXOL 300 MG/ML 100ML VIAL. IV ONE (09:30)
[2018-03-20] MEDS ORDERED: MORPHINE SULFATE 4 MG/ML VIAL. IV ONE (09:30)
[2018-03-20 09:36] LABS: INFLUENZA A PATIENT POSITIVE (NEGATIVE); INFLUENZA B PATIENT NEGATIVE (NEGATIVE)
[2018-03-20] MEDS ORDERED: OSELTAMIVIR 75 MG CAPSULE PO ONE (09:45)
[2018-03-20] MEDS ORDERED: CONTRAST GIVEN. MC PRN (09:45)
--- NOTE | 2018-03-20 10:08 | RAD ---
CT ABD PELV W/ IV CONTRST ONLY History: Abdominal pain, nausea and vomiting Technique: Postcontrast CT imaging was performed of the abdomen and pelvis, multiplanar reconstruction images submitted. One or more of the following individualized dose reduction techniques were utilized for this examination: 1. Automated exposure control 2. Adjustment of the mA and/or kV according to patient size 3. Use of iterative reconstruction technique. Comparison: November 14, 2017 Findings: There is again mild linear fibrotic change right lower lobe. There is no pleural fluid. Note is made of leads from electronic cardiac device, not fully included. There is no new focal abnormality of the liver, spleen, pancreas. There has been cholecystectomy. There is no adrenal nodularity. Both kidneys enhance, no significant hydronephrosis. There is again mild strandy change of the bilateral perinephric fat. There is a small hypodense lesion of the mid right kidney too small to characterize about 0.6 cm. Accurate evaluation of bowel is limited without oral contrast. There is no bowel dilatation, free air, free fluid. There has been appendectomy. There has been hysterectomy. There is no significant inflammatory type change localized about the bowel. Mild small bowel wall thickening in the left abdomen is possible although poorly evaluated without oral contrast. There has been anterior left hernia repair in the abdomen and pelvis as seen previously. There is again multilevel posterolateral fusion hardware L1-L5. There are spinal stimulator leads. There is similar degree of mild superior height loss of T12, greater degree of mild superior endplate concavity of T10 without osseous retropulsion. There is degenerative disc disease of visualized inferior thoracic levels. IMPRESSION: 1. There may be mild small bowel wall thickening in the left abdomen as may be seen with enteritis, no other significant acute abnormality identified. There has been cholecystectomy and appendectomy. 2. Compared with the October 2017 exam, there is somewhat greater degree of mild superior T10 endplate compression deformity, correlation with any point tenderness advised. There is multilevel posterolateral fusion hardware of the lumbar spine. Electronically signed by: Johnie Collier MD (03/20/2018 10:04 AM) [id number]
[2018-03-20 10:35] LABS: BILIRUBIN,URINE NEGATIVE (NEG); CLARITY,URINE CLEAR; COLOR,URINE YELLOW; NITRITE,URINE NEGATIVE (NEG); PH,URINE 6.5; PROTEIN,URINE NEGATIVE (NEG-TRACE); UROBILINOGEN,URINE 0.2 mg/dL (0.2 mg/dL)
[2018-03-20 11:03] LABS: BACTERIA,URINE FEW /HPF (0-FEW); HYALINE CASTS, URINE MODERATE /HPF; RBC,URINE 0 /HPF (0-2); SQUAMOUS EPITHELIAL CELL,UR MOD /LPF
[2018-03-20] MEDS ORDERED: ONDA4TAB7 PO (11:08)
[2018-03-20] MEDS ORDERED: OSEL75CA PO (11:08)
[2018-03-20 11:12] VITALS: BP 162/74
== END 2018-03-20 11:45 | disposition home or self-care (01) ==
LOC: ER 08:01
DX: K52.9 Noninfective gastroenteritis and colitis, unspecified (principal); J09.X2 Influenza due to identified novel influenza A virus with other respiratory manifestations; E11.40 Type 2 diabetes mellitus with diabetic neuropathy, unspecified; I10 Essential (primary) hypertension; E78.00 Pure hypercholesterolemia, unspecified; Z86.73 Personal history of transient ischemic attack (TIA), and cerebral infarction without residual deficits; Z90.49 Acquired absence of other specified parts of digestive tract; Z90.710 Acquired absence of both cervix and uterus; Z95.0 Presence of cardiac pacemaker; Z88.2 Allergy status to sulfonamides; Z88.8 Allergy status to other drugs, medicaments and biological substances
CPT/HCPCS: 36415; 71046; 74177; 80053; 81001; 83605; 83690; 83880; 84484; 85025; 87040; 87086; 87804; 93005; 96361; 96374; 96375; 99284; J2270; J2405; J7030; Q9967

== ENCOUNTER 2018-04-08 02:24 | Emergency (ER) | payer MEDICARE ==
[~2018-04-08] VITALS: Ht 160 cm; Wt 80.7 kg
[~2018-04-08 02:24] MED LIST changes: +ONDA4TAB7 PO; +OSEL75CA PO
[2018-04-08 02:25] VITALS: BP 136/74
[2018-04-08] MEDS ORDERED: HYDROmorphone 2 MG/ML VIAL IM ONE (03:30)
--- NOTE | 2018-04-08 03:38 | PHYS DOC ---
Past Medical History Past Medical History: Angina, Depression, Diabetes-Type II, Fibromyalgia, GERD , High Cholesterol, Hypertension, Stroke Additional Past Medical Histor: neuropathy, RLS, subarachnoid hemorrhage(2002) , VERTIGO, EDEMA Past Surgical History: Cholecystectomy, Hysterectomy, Pacemaker Additional Past Surgical Histo: "10 BACK SURGERIES", COLON RESECTION, BREAST REDUCTION Alcohol Use: None Drug Use: None Adult General Chief Complaint Chief Complaint: BACK PAIN OR INJURY [facility] HPI Patient is a 72 year old female who presents with back pain and sciatica. Patient has a chronic history of low back pain. She has undergone multiple spinal surgeries with the most recent being 2 years earlier. Today, she presents complaining of very typical back pain with radiation and sciatic symptoms down the bilateral legs with the right being worse than the left. The patient has pain chronically and has been using hydrocodone at home but this has not relieved her pain today. She states when she normally has a flare similar to this, she comes to the ER and receives intramuscular injection of medication which relieved her symptoms. She has neuropathic type pain along the back of the right leg. No recent fever or chills. No new injury. No chest pain or abdominal pain. She was last evaluated in this emergency department for similar symptoms about one month earlier. Review of Systems Review of Systems Constitutional: Denies fever or chills Eyes: Denies change in visual acuity HENT: Denies nasal congestion Respiratory: Denies cough or shortness of breath Cardiovascular: No additional information not addressed in HPI GI: Denies abdominal pain, nausea : Denies dysuria Musculoskeletal: Denies back pain Integument: Denies rash or skin lesions Neurologic: Denies headache Endocrine: Denies polyuria All other systems were reviewed and found to be within normal limits, except as documented in this note. Current Medications Current Medications Current Medications Medications (Trade) Dose Ordered Sig/Marly Start Time Stop Time Status Last Admin Dose Admin Hydromorphone HCl (Dilaudid) 1 mg 1X ONCE 04/08/18 03:30 04/08/18 03:31 DC Allergies Allergies Allergies Coded Allergies Type Severity Reaction Last Updated Verified pramipexole Allergy Severe renal failure 02/13/17 Yes Sulfa (Sulfonamide Antibiotics) Allergy Intermediate 02/13/17 Yes clavulanic acid Allergy Intermediate 02/13/17 Yes Physical Exam Physical Exam Constitutional: Well developed, well nourished, no acute distress, non-toxic appearance HENT: Normocephalic, atraumatic, bilateral external ears normal, oropharynx moist Eyes: PERRLA, EOMI Neck: Normal range of motion, no tenderness Cardiovascular:Heart rate regular rhythm, no murmur Lungs & Thorax: Bilateral breath sounds clear to auscultation Skin: Warm, dry, no erythema, no rash Extremities: calf tenderness and swelling on the right compared to the left Neurologic: Alert and oriented X 3 Psychologic: Affect normal Current Patient Data Vital Signs Vital Signs Date Time Temp Pulse Resp B/P (MAP) Pulse Ox O2 Delivery O2 Flow Rate FiO2 04/08/18 02:25 98.7 63 20 136/74 (94) 95 Room Air 98.7 EKG EKG [] Radiology/Procedures Radiology/Procedures [] Course & Med Decision Making Course & Med Decision Making Pertinent Labs and Imaging studies reviewed. (See chart for details) Patient presented to the ER with symptoms that she describes to be very typical for exacerbation of her chronic low back pain. On physical exam, she was noted to have some swelling of the right leg compared to the left. Her calf was tender. Because of this, ultrasound was completed. There was no DVT seen. The patient was given a dose of intramuscular Dilaudid in the ER. This medication has worked previously and she has tolerated it well. Following this, the patient felt improved and was discharged to home. She was accompanied by a family member who is driving her home today. Advised to follow-up with her primary care doctor or return to the ER for any new or worsening symptoms. Dragon Disclaimer Dragon Disclaimer This electronic medical record was generated, in whole or in part, using a voice recognition dictation system. Departure Departure Impression: Primary Impression: Back pain Disposition: 01 HOME, SELF-CARE Condition: GOOD Referrals: LO LEDESMA MD (PCP) Patient Instructions: Back Pain, Adult, Sciatica, [id number] RHETT PRABHAKAR DO Apr 08, 2018 03:38
--- NOTE | 2018-04-08 03:43 | RAD ---
Examination: Lower Extremity Venous Doppler Ultrasound History: Right leg swelling Comparison: None Procedure: Howell scale, color flow 2D and spectal waveform analysis images are obtained with and without compression in the area of the common femoral vein, superficial femoral vein - femoral vein junction, main femoral vein (superficial femoral vein) and popliteal vein. Veins of the proximal calf are also imaged. Findings: There is normal duplex flow, color flow and compressibility of all visualized vein segments. No evidence of deep venous thrombus is present. Impression: No evidence of DVT in the right lower extremity venous system. Electronically signed by: Gustavo Joyce MD (04/08/2018 3:38 AM) [id number]
== END 2018-04-08 03:35 | disposition home or self-care (01) ==
LOC: ER 02:24
DX: G89.29 Other chronic pain (principal); M54.41 Lumbago with sciatica, right side; M54.42 Lumbago with sciatica, left side; R22.41 Localized swelling, mass and lump, right lower limb; E78.00 Pure hypercholesterolemia, unspecified; K21.9 Gastro-esophageal reflux disease without esophagitis; I10 Essential (primary) hypertension; E11.40 Type 2 diabetes mellitus with diabetic neuropathy, unspecified; Z95.0 Presence of cardiac pacemaker; Z86.73 Personal history of transient ischemic attack (TIA), and cerebral infarction without residual deficits; Z90.49 Acquired absence of other specified parts of digestive tract; Z90.710 Acquired absence of both cervix and uterus; Z88.2 Allergy status to sulfonamides; Z88.8 Allergy status to other drugs, medicaments and biological substances
CPT/HCPCS: 93971; 96372; 99284; J1170

== ENCOUNTER → 2018-05-09 | Outpatient (CLI) | payer MEDICARE ==
[~2018-05-09] VITALS: Ht 160 cm; Wt 81.2 kg
[~2018-05-09] MED LIST changes: -AMLO10TA6 PO; +AMLO10TA8 PO; -GABA600T2 PO; +GABA600T7 PO; +IOHEXOL 300 MG/ML 100ML VIAL. ONE; +LIDOCAINE 1% Multi-Dose 20 ML VIAL. ONE; +METF500T16 PO; +TIZA4TAB PO; +tiZANidine 4 MG TABLET. PO ONE; +tiZANidine 4 MG TABLET. PO PRN
[2018-05-09 10:07] LABS: HEMATOCRIT 36.6 % (36.0-47.0); HEMOGLOBIN 12.2 g/dL (12.0-15.5); RED BLOOD COUNT 4.33 x10^6/uL (3.50-5.40); RED CELL DISTRIBUTION WIDTH 14.1 % (11.5-14.5); WHITE BLOOD COUNT 6.1 x10^3/uL (4.0-11.0)
[2018-05-09 10:15] LABS: CALCIUM 8.8 mg/dL (8.5-10.1); GFR 54.8; POTASSIUM 4.4 mmol/L (3.5-5.1)
[2018-05-09 10:16] LABS: PROTHROMBIN TIME PATIENT 13.7 SEC (11.7-14.0)
[2018-05-09 11:18] VITALS: BP 139/70
--- NOTE | 2018-05-09 11:45 | NUR ---
pt has been moaning and unable to lay still in any position due to severe leg cramps. she states that they are worse than they have been. called and talked with Dr. Jc. gave pt her home dose of zanaflex. this has helped but she still doesn't think she can be still for heart cath. Notified Dr. Jc and he will come talk w/pt and family when he gets out of current procedure. notified pt of this.
--- NOTE | 2018-05-09 13:00 | NUR ---
Dr. Bates came and talked with pt and her spouse regarding leg cramp issues and inability to lay still. He stated he would talk to pt's attending Dr. Babin about what can be done for leg cramps and will reschedule this for next week as this is a routine elective procedure and not an emergency.
--- NOTE | 2018-05-09 13:46 | NUR ---
Discharge Note: GIORGIO LOVE [facility] Discharge instructions and discharge home medications reviewed with Patient and a copy given. All questions have been answered and understanding verbalized. The following instructions and handouts were given: education was given to patient regarding hydrating for leg cramps. Pt was also told that [facility] office will call and make another appt for cath. Discontinued lines and drains: peripheral iv was discontinued with no complications. Catheter tip was intact. Patient discharged to home with self care via wheelchair. Pt was accompanied by spouse.
== END | disposition home or self-care (01) ==
LOC: CCL 09:37
PROVIDERS: ATTEND Internal Medicine Cardiovascular Disease
DX: I25.10 Atherosclerotic heart disease of native coronary artery without angina pectoris (principal); Z53.8 Procedure and treatment not carried out for other reasons; Z88.0 Allergy status to penicillin; Z88.2 Allergy status to sulfonamides; Z88.8 Allergy status to other drugs, medicaments and biological substances
CPT/HCPCS: 36415; 80048; 85027; 85610

== ENCOUNTER → 2018-05-23 | Outpatient (CLI) | payer MEDICARE ==
[2018-05-23] VITALS (13 sets, daily range): BP systolic 113–140; BP diastolic 52–72
[~2018-05-23] VITALS: Ht 160 cm; Wt 80.7 kg
[~2018-05-23] MED LIST changes: +0.9 % SODIUM CHLORIDE 10 ML DISP.SYRIN. IV PRN; +CONTRAST GIVEN. MC PRN; +GLIP10TA13 PO; +HEPARIN for ARTERIAL LINE 1,500 ML ONE; +HEPARIN for IV BOLUS 10,000 UNIT/10 ML VIAL. IART ONE; +HEPARIN for IV BOLUS 10,000 UNIT/10 ML VIAL. ONE; +IOHEXOL 300 MG/ML 100ML VIAL. IART ONE; +IV NORMAL SALINE 1000ML BAG 1,000 ML IV SCH; +LIDOCAINE 1% Multi-Dose 20 ML VIAL. INJ ONE; +MIDAZOLAM HCL/PF 2 MG/2 ML VIAL. IV ONE; +MIDAZOLAM HCL/PF 2 MG/2 ML VIAL. ONE; +NITROGLYCERIN 200 MCG/2 ML SYRINGE FOR CATH/VASC LAB. IART ONE; +NITROGLYCERIN 200 MCG/2 ML SYRINGE FOR CATH/VASC LAB. ONE; +NITROGLYCERIN SUBLINGUAL 0.4 MG BOTTLE OF 25. SL PRN; +TRAZ-118 PO; -TRAZ-85 PO; +VERAPAMIL 5 MG/2 ML VIAL. IART ONE; +VERAPAMIL 5 MG/2 ML VIAL. ONE; +[UNRECOGNIZED DRUG - CODE] TP; +[UNRECOGNIZED DRUG - REMARK]; +fentaNYL PF VIAL 100 MCG/2 ML VIAL IV ONE; +fentaNYL PF VIAL 100 MCG/2 ML VIAL ONE; -tiZANidine 4 MG TABLET. PO ONE; -tiZANidine 4 MG TABLET. PO PRN
[2018-05-23 10:04] LABS: HEMATOCRIT 37.6 % (36.0-47.0); HEMOGLOBIN 12.5 g/dL (12.0-15.5); RED BLOOD COUNT 4.45 x10^6/uL (3.50-5.40); RED CELL DISTRIBUTION WIDTH 13.9 % (11.5-14.5); WHITE BLOOD COUNT 7.5 x10^3/uL (4.0-11.0)
[2018-05-23 10:14] LABS: PROTHROMBIN TIME PATIENT 13.9 SEC (11.7-14.0)
[2018-05-23 10:19] LABS: CALCIUM 9.1 mg/dL (8.5-10.1); CREATININE 0.9 mg/dL (0.6-1.0); GFR 61.9; POTASSIUM 3.7 mmol/L (3.5-5.1)
--- NOTE | 2018-05-23 11:52 | PDOC ---
MODERATE SEDATION ASSESSMENT RISKS/ALTERNATIVES Risks/Alternatives Risks and alternatives of this type of sedation and procedure discussed with: RISK/ALTERNATIVES: Patient H & P ON CHART H & P H & P on chart and reviewed for co-morbid conditions and appropriate labs. H&P ON CHART: Yes STATUS PREG STATUS ASSESSED: Yes MEDS/ALLERGIES REVIEWED Meds/Allergies Reviewed Medications and Allergies including time and route of recently administered narcotics and sedatives. MEDS/ALLERGIES REVIEWED: Yes ASA RATING ASA RATING: II AIRWAY ASSESSMENT Airway Assessment Airway patency, oral function limitations, presence of caps, crowns, dentures, partials, and ability to extend neck assessed. AIRWAY ASSESSMENT: Yes MALLAMPATI SCORE MALLAMPATI SCORE: II PRE-SEDATION ASSESSMENT PRE-SEDATION ASSESSMENT: Yes GARRY JIMENEZ MD May 23, 2018 11:52
--- NOTE | 2018-05-23 15:32 | NUR ---
Spoke with Dr. Zahra Babin office in regards to managing patients blood sugar over weekend until Saturday due to the use of contrast in today's procedure. Patient given the following instruction for blood sugar management: Hold Metformin until Saturday05/26/2018. Start Novolog sliding scale three times a day with meals starting today, Saturday and Saturday: 150-180=15units 181-210=20units 211-240=25units 241-270=30units 271-300=35units 400 or greater call MD. Resume Metformin Saturday05/26/2018; Call Dr. Babin Saturday for followup appt within one week. These instructions discussed with patient and , both verbalized understanding.
--- NOTE | 2018-05-23 15:54 | CARD ---
MR#: [id number] Date of Study: 05/23/2018 Ordering Physician: GARRY BATES, Referring Physician: GARRY BATES, Paul: CLARENCE MCKAY RTR APPROVED REPORT Procedures Left heart catheterization Left ventriculogram Selective coronary angiogram The patient is a 72-year-old female with episodes of increasing shortness of breath as well as chest discomfort. She had transient ischemic dilatation on a stress test. Chest pain continued. In this set ting heart catheterization was recommended. Risks and benefits were discussed with the patient and sh e agreed to proceed. After informed consent was obtained the patient was brought to the heart catheterization lab. The are a of the right radial artery was prepared the usual manner with Betadine, sterile draping and local a nesthetic after a normal Obi's test. A quick catheter system was used to engage the right radial ar keila, a wire placed and a 6 [place] sheath placed over the wire. The standard mixture of heparin and a nti-spasm medications was administered via the sheath. Using a J-wire a 6 [place] JL3.5 diagnostic cat heter advanced to the ascending aorta. It was used to engage the left coronary system and sequential injections in various views were obtained. A 6 [place] JR 4 diagnostic catheter was advanced to the as cending aorta. It was used to engage the right coronary artery and sequential injections in various v iews were obtained. A pigtail catheter was advanced ascending aorta. It was advanced the left ventric le. Pressures were obtained. A 30 PIT[place] left ventriculogram was performed. Pullback pressures were william sured. The catheter was removed the patient. A TR band was used to seal the puncture site in the anjelica dard fashion. The patient was moved to the holding area in stable condition. Findings. Hemodynamics. LV pressure 142/6, 16. Aortic root pressure 140/62. Coronaries. Left main. The left main was a long vessel with no lesions. Left anterior descending. The LAD was a moderate size vessel with normal distribution. It had a mild mid 15% lesion. Left circumflex. The left circumflex was a moderate size vessel with nondominant distribution. It had no lesions. Right coronary artery. The right coronary was a moderate size vessel. It had dominant distribution. I t had no lesions. Left ventriculogram. The left ventricle showed normal left ventricular systolic function with an ejec tion fraction of 60% or greater. <Conclusion> Minimal disease in the LAD with no lesions greater than 20%. Normal LV systolic function with an ejection fraction of 60% or greater. Signed by : Garry Bates MD Electronically Approved : 05/23/2018 15:54:16
--- NOTE | 2018-05-23 16:05 | NUR ---
Discharge Note: GIORGIO [facility] Discharge instructions and discharge home medications reviewed with Patient and a copy given. All questions have been answered and understanding verbalized. The following instructions and handouts were given: education was given to patient regarding radial site care, moderate sedation and instruction for insulin for the weekend given by PCP. Pt verbalized understanding. Discontinued lines and drains: peripheral iv was discontinued with no complications. Catheter tip was intact. Patient discharged to home with self care via wheelchair. Pt was accompanied by spouse.
== END | disposition home or self-care (01) ==
LOC: CCL 09:34
PROVIDERS: ATTEND Internal Medicine Cardiovascular Disease
DX: I25.10 Atherosclerotic heart disease of native coronary artery without angina pectoris (principal); Z88.0 Allergy status to penicillin; Z88.2 Allergy status to sulfonamides; Z88.8 Allergy status to other drugs, medicaments and biological substances; Z79.899 Other long term (current) drug therapy; Z95.0 Presence of cardiac pacemaker; I10 Essential (primary) hypertension; E11.9 Type 2 diabetes mellitus without complications; G25.81 Restless legs syndrome; M79.7 Fibromyalgia; G47.30 Sleep apnea, unspecified; Z86.73 Personal history of transient ischemic attack (TIA), and cerebral infarction without residual deficits; Z90.49 Acquired absence of other specified parts of digestive tract; Z90.710 Acquired absence of both cervix and uterus; Z98.890 Other specified postprocedural states; Z82.49 Family history of ischemic heart disease and other diseases of the circulatory system; I44.2 Atrioventricular block, complete; Z79.84 Long term (current) use of oral hypoglycemic drugs
CPT/HCPCS: 36415; 80048; 85027; 85610; 93458; 99152; 99153; C1769; C1892; J1644; J2250; J3010; J3490; Q9967

== ENCOUNTER 2018-06-21 00:13 | Inpatient (IN) | payer MEDICARE ==
[~2018-06-21] VITALS: Ht 160 cm; Wt 82.4 kg
[~2018-06-21 00:13] MED LIST changes: -0.9 % SODIUM CHLORIDE 10 ML DISP.SYRIN. IV PRN; -CONTRAST GIVEN. MC PRN; -GLIP10TA13 PO; -HEPARIN for ARTERIAL LINE 1,500 ML ONE; -HEPARIN for IV BOLUS 10,000 UNIT/10 ML VIAL. IART ONE; -HEPARIN for IV BOLUS 10,000 UNIT/10 ML VIAL. ONE; -IOHEXOL 300 MG/ML 100ML VIAL. IART ONE; -IOHEXOL 300 MG/ML 100ML VIAL. ONE; -IV NORMAL SALINE 1000ML BAG 1,000 ML IV SCH; -LIDOCAINE 1% Multi-Dose 20 ML VIAL. INJ ONE; -LIDOCAINE 1% Multi-Dose 20 ML VIAL. ONE; -MIDAZOLAM HCL/PF 2 MG/2 ML VIAL. IV ONE; -MIDAZOLAM HCL/PF 2 MG/2 ML VIAL. ONE; -NITROGLYCERIN 200 MCG/2 ML SYRINGE FOR CATH/VASC LAB. IART ONE; -NITROGLYCERIN 200 MCG/2 ML SYRINGE FOR CATH/VASC LAB. ONE; -NITROGLYCERIN SUBLINGUAL 0.4 MG BOTTLE OF 25. SL PRN; -VERAPAMIL 5 MG/2 ML VIAL. IART ONE; -VERAPAMIL 5 MG/2 ML VIAL. ONE; -[UNRECOGNIZED DRUG - CODE] TP; -[UNRECOGNIZED DRUG - REMARK]; -fentaNYL PF VIAL 100 MCG/2 ML VIAL IV ONE; -fentaNYL PF VIAL 100 MCG/2 ML VIAL ONE
[2018-06-21] MEDS ORDERED: IV NORMAL SALINE 1000ML BAG 1,000 ML IV SCH (00:30)
[2018-06-21] MEDS ORDERED: ONDANSETRON PF 4 MG/2 ML VIAL. IV ONE (00:30)
[2018-06-21 00:41] LABS: BASO % 1 % (0-3); EOS # 0.1 x10^3/uL (0.0-0.7); EOS % 1 % (0-3); HEMATOCRIT 36.8 % (36.0-47.0); HEMOGLOBIN 12.4 g/dL (12.0-15.5); LYMPH # 1.3 x10^3/uL (1.0-4.8); LYMPH % 15 % (24-48); MEAN CORPUSCULAR HEMOGLOBIN 29 pg (25-35); MEAN CORPUSCULAR HGB CONC 34 g/dL (31-37); MEAN CORPUSCULAR VOLUME 85 fL (79-100); MONO # 0.6 x10^3/uL (0.0-1.1); MONO % 7 % (0-9); NEUT # 6.6 x10^3uL (1.8-7.7); NEUT % 76 % (31-73); PLATELET COUNT 200 x10^3/uL (140-400); RED BLOOD COUNT 4.34 x10^6/uL (3.50-5.40); RED CELL DISTRIBUTION WIDTH 13.5 % (11.5-14.5); WHITE BLOOD COUNT 8.6 x10^3/uL (4.0-11.0)
[2018-06-21 00:50] LABS: CALCIUM 8.9 mg/dL (8.5-10.1); GFR 54.8; POTASSIUM 4.6 mmol/L (3.5-5.1)
[2018-06-21 00:57] LABS: ALBUMIN 3.2 g/dL (3.4-5.0); ALBUMIN/GLOBULIN RATIO 0.7 (1.0-1.7); TOTAL BILIRUBIN 0.4 mg/dL (0.2-1.0); TOTAL PROTEIN 7.6 g/dL (6.4-8.2)
[2018-06-21 00:59] LABS: INFLUENZA A PATIENT NEGATIVE (NEGATIVE); INFLUENZA B PATIENT NEGATIVE (NEGATIVE)
[2018-06-21 01:12] LABS: BILIRUBIN,URINE NEGATIVE (NEG); CLARITY,URINE CLEAR; COLOR,URINE YELLOW; NITRITE,URINE POSITIVE (NEG); PH,URINE 7.5; PROTEIN,URINE NEGATIVE (NEG-TRACE); UROBILINOGEN,URINE 0.2 mg/dL (0.2 mg/dL)
[2018-06-21 01:17] LABS: BACTERIA,URINE MANY /HPF (0-FEW); SQUAMOUS EPITHELIAL CELL,UR OCC /LPF; WBC,URINE 20-40 /HPF (0-4)
[2018-06-21] MEDS ORDERED: KETOROLAC 15 MG/ML VIAL. IV ONE (02:00)
[2018-06-21] MEDS ORDERED: ACETAMINOPHEN 500 MG TABLET PO ONE (02:00)
--- NOTE | 2018-06-21 02:04 | PHYS DOC ---
Past Medical History Past Medical History: Angina, Depression, Diabetes-Type II, Fibromyalgia, GERD , High Cholesterol, Hypertension, Stroke Additional Past Medical Histor: neuropathy, RLS, subarachnoid hemorrhage(2002) , VERTIGO, EDEMA Past Surgical History: Cholecystectomy, Hysterectomy, Pacemaker Additional Past Surgical Histo: "10 BACK SURGERIES", COLON RESECTION, BREAST REDUCTION Alcohol Use: None Drug Use: None Adult General Chief Complaint Chief Complaint: WEAKNESS/GENERALIZED HPI HPI Patient is 72-year-old female who presents with complaint of generalized weakness and upper abdominal pain that radiates into her back. Patient admits that the pain in her abdomen and her back is chronic in nature. She also states that she has had some nausea and vomiting that started earlier today. She states that she had a total of 2 episodes of vomiting. Patient's indicates that her urine smells really foul and states that she has a history of urinary tract infections. She also reportedly had fever of 102.1 by EMS. Review of Systems Review of Systems Constitutional: Positive fever and chills [] Respiratory: Positive cough without shortness of breath [] Cardiovascular: No additional information not addressed in HPI [] GI: Positive abdominal pain with nausea and vomiting. Denies diarrhea [] : Positive dysuria without hematuria [] Musculoskeletal: Positive mid to lower back pain [] All other systems were reviewed and found to be within normal limits, except as documented in this note. Current Medications Current Medications Current Medications Medications (Trade) Dose Ordered Sig/[facility] Start Time Stop Time Status Last Admin Dose Admin Acetaminophen (Tylenol) 1,000 mg 1X ONCE 06/21/18 02:00 06/21/18 02:01 DC 06/21/18 02:06 1,000 MG Ketorolac Tromethamine (Toradol 15mg Vial) 15 mg 1X ONCE 06/21/18 02:00 06/21/18 02:01 DC 06/21/18 02:06 15 MG Levofloxacin/ Dextrose 100 ml @ 100 mls/hr 1X ONCE 06/21/18 02:00 06/21/18 02:59 DC 06/21/18 01:56 100 MLS/HR Ondansetron HCl (Zofran) 4 mg 1X ONCE 06/21/18 00:30 06/21/18 00:31 DC 06/21/18 00:30 4 MG Sodium Chloride 1,000 ml @ 1,000 mls/hr Q1H 06/21/18 00:30 06/21/18 01:29 DC 06/21/18 00:30 1,000 MLS/HR Allergies Allergies Allergies Coded Allergies Type Severity Reaction Last Updated Verified pramipexole Allergy Severe renal failure 02/13/17 Yes Penicillins Allergy Intermediate hives 05/09/18 Yes Sulfa (Sulfonamide Antibiotics) Allergy Intermediate 02/13/17 Yes clavulanic acid Allergy Intermediate 02/13/17 Yes Physical Exam Physical Exam Constitutional: Well developed, well nourished, no acute distress, non-toxic appearance. [] HENT: Normocephalic, atraumatic, bilateral external ears normal, oropharynx moist, no oral exudates, nose normal. [] Eyes: PERRLA, EOMI, conjunctiva normal, no discharge. [] Neck: Normal range of motion, no tenderness, supple, no stridor. [] Cardiovascular:Heart rate regular rhythm, no murmur [] Lungs & Thorax: Bilateral breath sounds clear to auscultation [] Abdomen: Bowel sounds normal, soft, with upper abdominal tenderness. [] Skin: Warm, dry, no erythema, no rash. [] Extremities: No tenderness, no cyanosis, no clubbing, ROM intact. [] Neurologic: Alert and oriented X 3, no focal deficits noted. [] Current Patient Data Vital Signs Vital Signs Date Time Temp Pulse Resp B/P (MAP) Pulse Ox O2 Delivery O2 Flow Rate FiO2 06/21/18 01:50 101 22 97 06/21/18 00:25 103.1 142/65 (90) Room Air 103.1 Lab Values Laboratory Tests Test 06/21/18 00:30 06/21/18 01:05 White Blood Count 8.6 x10^3/uL (4.0-11.0) Red Blood Count 4.34 x10^6/uL (3.50-5.40) Hemoglobin 12.4 g/dL (12.0-15.5) Hematocrit 36.8 % (36.0-47.0) Mean Corpuscular Volume 85 fL (79-100) Mean Corpuscular Hemoglobin 29 pg (25-35) Mean Corpuscular Hemoglobin Concent 34 g/dL (31-37) Red Cell Distribution Width 13.5 % (11.5-14.5) Platelet Count 200 x10^3/uL (140-400) Neutrophils (%) (Auto) 76 % (31-73) H Lymphocytes (%) (Auto) 15 % (24-48) L Monocytes (%) (Auto) 7 % (0-9) Eosinophils (%) (Auto) 1 % (0-3) Basophils (%) (Auto) 1 % (0-3) Neutrophils # (Auto) 6.6 x10^3uL (1.8-7.7) Lymphocytes # (Auto) 1.3 x10^3/uL (1.0-4.8) Monocytes # (Auto) 0.6 x10^3/uL (0.0-1.1) Eosinophils # (Auto) 0.1 x10^3/uL (0.0-0.7) Basophils # (Auto) 0.0 x10^3/uL (0.0-0.2) Sodium Level 136 mmol/L (136-145) Potassium Level 4.6 mmol/L (3.5-5.1) Chloride Level 97 mmol/L (98-107) L Carbon Dioxide Level 31 mmol/L (21-32) Anion Gap 8 (6-14) Blood Urea Nitrogen 12 mg/dL (7-20) Creatinine 1.0 mg/dL (0.6-1.0) Estimated GFR (Cockcroft-Gault) 54.8 BUN/Creatinine Ratio 12 (6-20) Glucose Level 341 mg/dL (70-99) H Lactic Acid Level 2.5 mmol/L (0.4-2.0) H Calcium Level 8.9 mg/dL (8.5-10.1) Total Bilirubin 0.4 mg/dL (0.2-1.0) Aspartate Amino Transferase (AST) 46 U/L (15-37) H Alanine Aminotransferase (ALT) 52 U/L (14-59) Alkaline Phosphatase 131 U/L (46-116) H Total Protein 7.6 g/dL (6.4-8.2) Albumin 3.2 g/dL (3.4-5.0) L Albumin/Globulin Ratio 0.7 (1.0-1.7) L Influenza Type A Antigen Negative (NEGATIVE) Influenza Type B Antigen Negative (NEGATIVE) Urine Collection Type U cath Urine Color Yellow Urine Clarity Clear Urine pH 7.5 Urine Specific [place] 1.015 Urine Protein Negative mg/dL (NEG-TRACE) Urine Glucose (UA) 500 mg/dL (NEG) Urine Ketones (Stick) Negative mg/dL (NEG) Urine Blood Small (NEG) Urine Nitrite Positive (NEG) Urine Bilirubin Negative (NEG) Urine Urobilinogen Dipstick 0.2 mg/dL (0.2 mg/dL) Urine Leukocyte Esterase Large (NEG) Urine RBC 3-5 /HPF (0-2) Urine WBC 20-40 /HPF (0-4) Urine Squamous Epithelial Cells Occ /LPF Urine Bacteria Many /HPF (0-FEW) Urine Mucus Slight /LPF Laboratory Tests 06/21/18 00:30 Laboratory Tests 06/21/18 00:30 EKG EKG [] Radiology/Procedures Radiology/Procedures [] Course & Med Decision Making Course & Med Decision Making Pertinent Labs and Imaging studies reviewed. (See chart for details) [] Dragon Disclaimer Dragon Disclaimer This electronic medical record was generated, in whole or in part, using a voice recognition dictation system. Departure Departure Impression: Primary Impression: Urinary tract infection Additional Impressions: Fever Generalized weakness Disposition: ADMITTED INPATIENT Admitting Physician: Other (Dr. Bonds) Condition: IMPROVED Referrals: LO LEDESMA MD (PCP) Problem Qualifiers Primary Impression: Urinary tract infection Urinary tract infection type: site unspecified Hematuria presence: without hematuria Qualified Codes: N39.0 - Urinary tract infection, site not specified Additional Impressions: Fever Fever type: unspecified Qualified Codes: R50.9 - Fever, unspecified ROSAS ELIAS Jr. DO Jun 21, 2018 02:04
[2018-06-21] MEDS ORDERED: ONDANSETRON PF 4 MG/2 ML VIAL. IV PRN ×2 (02:15→20:00)
[2018-06-21] MEDS ORDERED: ACETAMINOPHEN 325 MG TABLET. PO PRN ×2 (02:15→20:00)
--- NOTE | 2018-06-21 02:23 | RAD ---
PORTABLE CHEST 1V Clinical History: FEVER Technique: AP view of the chest was obtained at 06/21/2018 12:22 AM. Comparison: March 20, 2018. Findings: The cardiomediastinal silhouette is normal. The pulmonary vasculature is normal. The lungs and pleural margins are clear. There is a left-sided pacemaker. Impression: No evidence of an acute cardiopulmonary process. Electronically signed by: Octavio Ricketts III, MD (06/21/2018 2:20 AM) [facility]
--- NOTE | 2018-06-21 03:20 | NUR ---
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
[2018-06-21 03:29] VITALS: BP 124/62
[2018-06-21] MEDS ORDERED: ALPR0.5T6 PO (03:30)
[2018-06-21] MEDS ORDERED: [UNRECOGNIZED DRUG - REMARK] (03:36)
[2018-06-21] MEDS ORDERED: [UNRECOGNIZED DRUG - CODE] TP (03:36)
[2018-06-21] MEDS ORDERED: METF500T16 PO (03:36)
[2018-06-21] MEDS: IV NORMAL SALINE 1000ML BAG 1,000 ML IV SCH ×3 (04:21→18:15)
[2018-06-21] MEDS: HYDROcodone/APAP 5/325MG 1 TAB TABLET PO PRN ×4 (05:06→20:46)
[2018-06-21 07:00] VITALS: BP 111/56
[2018-06-21] MEDS ORDERED: DEXTROSE 50% 25 GM / 50ML DISP.SYRIN. IV PRN (08:15)
[2018-06-21] MEDS: INSULIN LISPRO 300 UNITS/3 ML INSULN.PEN. SQ SCH ×3 (08:30→17:00)
--- NOTE | 2018-06-21 08:47 | EKG ---
[facility] [address] [place] [address] Test Date: 2018-06-21 Test Time: 00:39:24 Pat Name: GIORGIO LOVE Department: Room: 534 1 Gender: Female Meter Inspector: JOSE MANUEL : 1945 Requested By: ROSAS ELIAS Order Number: [id number] Reading MD: Roni Diego MD Measurements Intervals [place] Rate: 106 P: -26 [place]: 216 QRS: 74 QRSD: 140 T: -35 QT: 334 QTc: 445 Interpretive Statements SINUS TACHYCARDIA PROLONGED OH INTERVAL LBBB Electronically Signed On 06-24-2018 15:14:05 CDT by Roni Diego MD
--- NOTE | 2018-06-21 10:59 | HP ---
ADMIT DATE: 06/21/2018 CHIEF COMPLAINT: Weakness. HISTORY OF PRESENT ILLNESS: The patient is a pleasant 72-year-old female who presented to the ER with weakness. She has associated abdominal pain that has been occurring for several days, radiated to the back. States it was agonizing. She tried to take some home meds, but that was not working. She had a subjective fever of 102.1. In the ER, her temperature got as high as 103.1. We also checked her labs, she had a UTI and hyperglycemia with a glucose of 341. I have discussed the case with ER physician. We are going to admit the patient for IV antibiotics, fluids and insulin. PAST MEDICAL HISTORY: Probable noncompliance with diabetic meds. She states that her normal glucose is 350 and no one was able to fix that. Angina, depression, hyperlipidemia, fibromyalgia, GERD, hypertension, stroke, neuropathy, RLS, subarachnoid hemorrhage, vertigo, edema, cholecystectomy, hysterectomy, pacemaker, 10 back surgeries, colon resection, breast reduction. ALLERGIES: SULFA, PENICILLIN and CLAVULANIC ACID. FAMILY HISTORY: Coronary artery disease. SOCIAL HISTORY: She does not drink, smoke or take drugs. I think she lives alone. MEDICATIONS: Reviewed. She is on 18, including tizanidine, atorvastatin, Cardizem, Waldron, gabapentin, Wellbutrin, Cymbalta, alprazolam, temazepam, Requip, potassium, Lasix, Imodium, metformin, benzoin, Protonix. REVIEW OF SYSTEMS: GENERAL: No history of weight change, weakness or fevers. SKIN: No bruising, hair changes or rashes. EYES: No blurred, double or loss of vision. NOSE AND THROAT: No history of nosebleeds, hoarseness or sore throat. HEART: No history of palpitations, chest pain or shortness of breath on exertion. LUNGS: Denies cough, hemoptysis, wheezing or shortness of breath. GASTROINTESTINAL: Denies changes in appetite, nausea, vomiting, diarrhea or constipation. GENITOURINARY: No history of frequency, urgency, hesitancy or nocturia. NEUROLOGIC: Denies history of numbness, tingling, tremor or weakness. PSYCHIATRIC: No history of panic, anxiety or depression. ENDOCRINE: No history of heat or cold intolerance, polyuria or polydipsia. EXTREMITIES: Denies muscle weakness, joint pain, pain on walking or stiffness. PHYSICAL EXAMINATION: VITAL SIGNS: Temperature currently down to 97.9, pulse 80, respirations 18, blood pressure 118/54. GENERAL: She is alert, cooperative. HEART: Normal S1, S2. LUNGS: Clear. ABDOMEN: Soft, slightly tender. EXTREMITIES: Trace edema. SKIN: No rashes. ENDOCRINE: No thyromegaly. LYMPHATICS: No cervical nodes. HEMATOPOIETIC: No bruising. PSYCHIATRIC: She is anxious. LABORATORY DATA: Electrolytes: Sodium 136, potassium 4.6, chloride 97, bicarbonate 31, BUN 12, creatinine 1, glucose 341. White count 8, hemoglobin 12, and platelets 200. Urinalysis has a large amount of leukocyte esterase, 20-40 white cells. Flu testing was negative. Chest x-ray negative. ASSESSMENT AND PLAN: Urinary tract infection with sepsis, hyperglycemia, probable noncompliance. The patient has been admitted, we are going to start her on IV antibiotics and IV fluids, glipizide 10 p.o. daily, sliding scale insulin. I am going to try to resume her home meds, PT/OT, frequent labs. DVT prophylaxis. Full code. P.r.n. Burak, p.r.n. morphine. PROGNOSIS: Long-term guarded. JIL DAVID DO DR: CHARITO/antonio JOB#: [id number] / [id number]
[2018-06-21 11:00] VITALS: BP 125/59
[2018-06-21] MEDS: glipiZIDE 5 MG TABLET PO SCH ×2 (11:51→16:40)
[2018-06-21] MEDS ORDERED: BENZOIN TP PRN (14:00)
[2018-06-21] MEDS ORDERED: LOPERAMIDE 2 MG CAPSULE PO PRN (14:15)
[2018-06-21] MEDS ORDERED: tiZANidine 4 MG TABLET. PO SCH (14:30)
[2018-06-21] MEDS: POTASSIUM CHLORIDE 10 MEQ TABLET.ER. PO SCH (14:39)
[2018-06-21] MEDS: DULoxetine HCL 30 MG CAPSULE.DR PO SCH (14:39)
[2018-06-21] MEDS: FUROSEMIDE 40 MG TABLET. PO SCH (14:39)
[2018-06-21] MEDS: buPROPion XL 150 MG TAB.ER.24H. PO SCH (14:39)
[2018-06-21] MEDS: ALPRAZolam 0.5 MG TABLET PO SCH ×2 (14:39→20:44)
[2018-06-21] MEDS: GABAPENTIN 300 MG CAPSULE. PO SCH ×2 (14:42→20:44)
[2018-06-21] MEDS: rOPINIRole 0.25 MG TABLET. PO SCH ×2 (14:42→20:44)
[2018-06-21 15:00] VITALS: BP 118/56
[2018-06-21] MEDS ORDERED: tiZANidine 4 MG TABLET. PO PRN (15:00)
[2018-06-21 19:00] VITALS: BP 141/64
[2018-06-21] MEDS ORDERED: ONDANSETRON ODT 4 MG TAB.RAPDIS. PO PRN (20:00)
[2018-06-21] MEDS: TEMAZEPAM 15 MG CAPSULE PO SCH (20:44)
[2018-06-21] MEDS: LACTOBACILLUS RHAMNOSUS GG 1 CAPSULE. PO SCH (20:44)
[2018-06-21] MEDS: ATORVASTATIN CALCIUM 10 MG TABLET. PO SCH (20:44)
[2018-06-21] MEDS: PANTOPRAZOLE 40 MG TABLET.DR. PO SCH (20:44)
[2018-06-21] MEDS: metFORMIN 500 MG TABLET PO SCH ×2 (20:44→20:48)
[2018-06-21] MEDS ORDERED: ROPINIROLE HCL PO SCH (21:00)
[2018-06-21 23:00] VITALS: BP 124/62
[2018-06-22] MEDS: HYDROcodone/APAP 5/325MG 1 TAB TABLET PO PRN ×4 (01:00→21:00)
[2018-06-22 03:00] VITALS: BP 120/63
[2018-06-22 05:05] LABS: BASO % 0 % (0-3); EOS # 0.1 x10^3/uL (0.0-0.7); EOS % 1 % (0-3); HEMATOCRIT 36.3 % (36.0-47.0); HEMOGLOBIN 12.1 g/dL (12.0-15.5); LYMPH # 2.2 x10^3/uL (1.0-4.8); LYMPH % 29 % (24-48); MEAN CORPUSCULAR HEMOGLOBIN 29 pg (25-35); MEAN CORPUSCULAR HGB CONC 33 g/dL (31-37); MEAN CORPUSCULAR VOLUME 86 fL (79-100); MONO # 0.6 x10^3/uL (0.0-1.1); MONO % 8 % (0-9); NEUT # 4.6 x10^3uL (1.8-7.7); NEUT % 61 % (31-73); PLATELET COUNT 196 x10^3/uL (140-400); RED BLOOD COUNT 4.22 x10^6/uL (3.50-5.40); RED CELL DISTRIBUTION WIDTH 13.7 % (11.5-14.5); WHITE BLOOD COUNT 7.5 x10^3/uL (4.0-11.0)
[2018-06-22 05:29] LABS: CALCIUM 8.8 mg/dL (8.5-10.1); GFR 54.8; POTASSIUM 4.7 mmol/L (3.5-5.1)
[2018-06-22 07:00] VITALS: BP 113/59
--- NOTE | 2018-06-22 07:39 | PDOC ---
PROGRESS NOTES Vitals Vitals Vital Signs Date Time Temp Pulse Resp B/P (MAP) Pulse Ox O2 Delivery O2 Flow Rate FiO2 06/22/18 05:54 18 95 Room Air 06/22/18 03:00 99.2 90 120/63 (82) 99.2 06/21/18 19:00 2.0 Physical Exam Lungs: Clear Labs LABS Laboratory Tests Test 06/21/18 11:28 06/21/18 17:49 06/21/18 20:59 06/22/18 04:25 Glucose (Fingerstick) 268 mg/dL (70-99) 91 mg/dL (70-99) 81 mg/dL (70-99) White Blood Count 7.5 x10^3/uL (4.0-11.0) Red Blood Count 4.22 x10^6/uL (3.50-5.40) Hemoglobin 12.1 g/dL (12.0-15.5) Hematocrit 36.3 % (36.0-47.0) Mean Corpuscular Volume 86 fL (79-100) Mean Corpuscular Hemoglobin 29 pg (25-35) Mean Corpuscular Hemoglobin Concent 33 g/dL (31-37) Red Cell Distribution Width 13.7 % (11.5-14.5) Platelet Count 196 x10^3/uL (140-400) Neutrophils (%) (Auto) 61 % (31-73) Lymphocytes (%) (Auto) 29 % (24-48) Monocytes (%) (Auto) 8 % (0-9) Eosinophils (%) (Auto) 1 % (0-3) Basophils (%) (Auto) 0 % (0-3) Neutrophils # (Auto) 4.6 x10^3uL (1.8-7.7) Lymphocytes # (Auto) 2.2 x10^3/uL (1.0-4.8) Monocytes # (Auto) 0.6 x10^3/uL (0.0-1.1) Eosinophils # (Auto) 0.1 x10^3/uL (0.0-0.7) Basophils # (Auto) 0.0 x10^3/uL (0.0-0.2) Sodium Level 141 mmol/L (136-145) Potassium Level 4.7 mmol/L (3.5-5.1) Chloride Level 101 mmol/L (98-107) Carbon Dioxide Level 35 mmol/L (21-32) Anion Gap 5 (6-14) Blood Urea Nitrogen 11 mg/dL (7-20) Creatinine 1.0 mg/dL (0.6-1.0) Estimated GFR (Cockcroft-Gault) 54.8 Glucose Level 105 mg/dL (70-99) Calcium Level 8.8 mg/dL (8.5-10.1) Assessment and Plan Assessmemt and Plan Problems Medical Problems: (1) Fever Status: Acute (2) Generalized weakness Status: Acute (3) Urinary tract infection Status: Acute Comment Review of Relevant I have reviewed the following items lucy (where applicable) has been applied. Labs Laboratory Tests Test 06/21/18 00:30 06/21/18 01:05 06/21/18 07:37 06/21/18 11:28 White Blood Count 8.6 x10^3/uL (4.0-11.0) Red Blood Count 4.34 x10^6/uL (3.50-5.40) Hemoglobin 12.4 g/dL (12.0-15.5) Hematocrit 36.8 % (36.0-47.0) Mean Corpuscular Volume 85 fL (79-100) Mean Corpuscular Hemoglobin 29 pg (25-35) Mean Corpuscular Hemoglobin Concent 34 g/dL (31-37) Red Cell Distribution Width 13.5 % (11.5-14.5) Platelet Count 200 x10^3/uL (140-400) Neutrophils (%) (Auto) 76 % (31-73) Lymphocytes (%) (Auto) 15 % (24-48) Monocytes (%) (Auto) 7 % (0-9) Eosinophils (%) (Auto) 1 % (0-3) Basophils (%) (Auto) 1 % (0-3) Neutrophils # (Auto) 6.6 x10^3uL (1.8-7.7) Lymphocytes # (Auto) 1.3 x10^3/uL (1.0-4.8) Monocytes # (Auto) 0.6 x10^3/uL (0.0-1.1) Eosinophils # (Auto) 0.1 x10^3/uL (0.0-0.7) Basophils # (Auto) 0.0 x10^3/uL (0.0-0.2) Sodium Level 136 mmol/L (136-145) Potassium Level 4.6 mmol/L (3.5-5.1) Chloride Level 97 mmol/L (98-107) Carbon Dioxide Level 31 mmol/L (21-32) Anion Gap 8 (6-14) Blood Urea Nitrogen 12 mg/dL (7-20) Creatinine 1.0 mg/dL (0.6-1.0) Estimated GFR (Cockcroft-Gault) 54.8 BUN/Creatinine Ratio 12 (6-20) Glucose Level 341 mg/dL (70-99) Lactic Acid Level 2.5 mmol/L (0.4-2.0) Calcium Level 8.9 mg/dL (8.5-10.1) Total Bilirubin 0.4 mg/dL (0.2-1.0) Aspartate Amino Transf (AST/SGOT) 46 U/L (15-37) Alanine Aminotransferase (ALT/SGPT) 52 U/L (14-59) Alkaline Phosphatase 131 U/L (46-116) Total Protein 7.6 g/dL (6.4-8.2) Albumin 3.2 g/dL (3.4-5.0) Albumin/Globulin Ratio 0.7 (1.0-1.7) Influenza Type A Antigen Negative (NEGATIVE) Influenza Type B Antigen Negative (NEGATIVE) Urine Collection Type U cath Urine Color Yellow Urine Clarity Clear Urine pH 7.5 Urine Specific [place] 1.015 Urine Protein Negative mg/dL (NEG-TRACE) Urine Glucose (UA) 500 mg/dL (NEG) Urine Ketones (Stick) Negative mg/dL (NEG) Urine Blood Small (NEG) Urine Nitrite Positive (NEG) Urine Bilirubin Negative (NEG) Urine Urobilinogen Dipstick 0.2 mg/dL (0.2 mg/dL) Urine Leukocyte Esterase Large (NEG) Urine RBC 3-5 /HPF (0-2) Urine WBC 20-40 /HPF (0-4) Urine Squamous Epithelial Cells Occ /LPF Urine Bacteria Many /HPF (0-FEW) Urine Mucus Slight /LPF Glucose (Fingerstick) 161 mg/dL (70-99) 268 mg/dL (70-99) Test 06/21/18 17:49 06/21/18 20:59 06/22/18 04:25 Glucose (Fingerstick) 91 mg/dL (70-99) 81 mg/dL (70-99) White Blood Count 7.5 x10^3/uL (4.0-11.0) Red Blood Count 4.22 x10^6/uL (3.50-5.40) Hemoglobin 12.1 g/dL (12.0-15.5) Hematocrit 36.3 % (36.0-47.0) Mean Corpuscular Volume 86 fL (79-100) Mean Corpuscular Hemoglobin 29 pg (25-35) Mean Corpuscular Hemoglobin Concent 33 g/dL (31-37) Red Cell Distribution Width 13.7 % (11.5-14.5) Platelet Count 196 x10^3/uL (140-400) Neutrophils (%) (Auto) 61 % (31-73) Lymphocytes (%) (Auto) 29 % (24-48) Monocytes (%) (Auto) 8 % (0-9) Eosinophils (%) (Auto) 1 % (0-3) Basophils (%) (Auto) 0 % (0-3) Neutrophils # (Auto) 4.6 x10^3uL (1.8-7.7) Lymphocytes # (Auto) 2.2 x10^3/uL (1.0-4.8) Monocytes # (Auto) 0.6 x10^3/uL (0.0-1.1) Eosinophils # (Auto) 0.1 x10^3/uL (0.0-0.7) Basophils # (Auto) 0.0 x10^3/uL (0.0-0.2) Sodium Level 141 mmol/L (136-145) Potassium Level 4.7 mmol/L (3.5-5.1) Chloride Level 101 mmol/L (98-107) Carbon Dioxide Level 35 mmol/L (21-32) Anion Gap 5 (6-14) Blood Urea Nitrogen 11 mg/dL (7-20) Creatinine 1.0 mg/dL (0.6-1.0) Estimated GFR (Cockcroft-Gault) 54.8 Glucose Level 105 mg/dL (70-99) Calcium Level 8.8 mg/dL (8.5-10.1) Laboratory Tests Test 06/21/18 11:28 06/21/18 17:49 06/21/18 20:59 06/22/18 04:25 Glucose (Fingerstick) 268 mg/dL (70-99) 91 mg/dL (70-99) 81 mg/dL (70-99) White Blood Count 7.5 x10^3/uL (4.0-11.0) Red Blood Count 4.22 x10^6/uL (3.50-5.40) Hemoglobin 12.1 g/dL (12.0-15.5) Hematocrit 36.3 % (36.0-47.0) Mean Corpuscular Volume 86 fL (79-100) Mean Corpuscular Hemoglobin 29 pg (25-35) Mean Corpuscular Hemoglobin Concent 33 g/dL (31-37) Red Cell Distribution Width 13.7 % (11.5-14.5) Platelet Count 196 x10^3/uL (140-400) Neutrophils (%) (Auto) 61 % (31-73) Lymphocytes (%) (Auto) 29 % (24-48) Monocytes (%) (Auto) 8 % (0-9) Eosinophils (%) (Auto) 1 % (0-3) Basophils (%) (Auto) 0 % (0-3) Neutrophils # (Auto) 4.6 x10^3uL (1.8-7.7) Lymphocytes # (Auto) 2.2 x10^3/uL (1.0-4.8) Monocytes # (Auto) 0.6 x10^3/uL (0.0-1.1) Eosinophils # (Auto) 0.1 x10^3/uL (0.0-0.7) Basophils # (Auto) 0.0 x10^3/uL (0.0-0.2) Sodium Level 141 mmol/L (136-145) Potassium Level 4.7 mmol/L (3.5-5.1) Chloride Level 101 mmol/L (98-107) Carbon Dioxide Level 35 mmol/L (21-32) Anion Gap 5 (6-14) Blood Urea Nitrogen 11 mg/dL (7-20) Creatinine 1.0 mg/dL (0.6-1.0) Estimated GFR (Cockcroft-Gault) 54.8 Glucose Level 105 mg/dL (70-99) Calcium Level 8.8 mg/dL (8.5-10.1) Microbiology 06/21/18 Blood Culture - Preliminary, Resulted NO GROWTH AFTER 1 DAY Medications Current Medications Sodium Chloride 1,000 ml @ 1,000 mls/hr Q1H IV Last administered on 06/21/18at 00:30; Start 06/21/18 at 00:30; Stop 06/21/18 at 01:29; Status DC Ondansetron HCl (Zofran) 4 mg 1X ONCE IV Last administered on 06/21/18at 00:30; Start 06/21/18 at 00:30; Stop 06/21/18 at 00:31; Status DC Levofloxacin/ Dextrose 100 ml @ 100 mls/hr 1X ONCE IV Last administered on 06/21/18at 01:56; Start 06/21/18 at 02:00; Stop 06/21/18 at 02:59; Status DC Ketorolac Tromethamine (Toradol 15mg Vial) 15 mg 1X ONCE IV Last administered on 06/21/18at 02:06; Start 06/21/18 at 02:00; Stop 06/21/18 at 02:01; Status DC Acetaminophen (Tylenol) 1,000 mg 1X ONCE PO Last administered on 06/21/18at 02: 06; Start 06/21/18 at 02:00; Stop 06/21/18 at 02:01; Status DC Ondansetron HCl (Zofran) 4 mg PRN Q8HRS PRN IV NAUSEA/VOMITING; Start 06/21/18 at 02:15; Stop 06/22/18 at 02:14; Status DC Sodium Chloride 1,000 ml @ 125 mls/hr Q8H IV Last administered on 06/21/18at 04: 21; Start 06/21/18 at 02:15; Stop 06/22/18 at 02:14; Status DC Acetaminophen (Tylenol) 650 mg PRN Q4HRS PRN PO FEVER Last administered on at 05:08; Start 06/21/18 at 02:15; Stop 06/22/18 at 02:14; Status DC Acetaminophen/ Hydrocodone Bitart (Lortab 5/325) 1 tab PRN Q4HRS PRN PO MODERATE-SEVERE PAIN Last administered on 06/22/18at 04:58; Start 06/21/18 at 04:45 Insulin Human Lispro (HumaLOG) 0-5 UNITS TIDWMEALS SQ Last administered on 11:55; Start 06/21/18 at 08:30 Dextrose (Dextrose 50%-Water Syringe) 12.5 gm PRN Q15MIN PRN IV SEE COMMENTS; Start 06/21/18 at 08:15 Levofloxacin/ Dextrose 100 ml @ 100 mls/hr Q24H IV Last administered on 20:44; Start 06/21/18 at 21:00 Glipizide (Glucotrol) 5 mg BIDBFRMEAL PO Last administered on 06/21/18 16:40; Start 06/21/18 at 11:30 Alprazolam (Xanax) 0.5 mg BID PO Last administered on 06/21/18 20:44; Start 06/21/18 at 14:30 Atorvastatin Calcium (Lipitor) 10 mg HS PO Last administered on 06/21/18 20:44 ; Start 06/21/18 at 21:00 Benzoin (Benzoin Tincture) 1 francisco PRN BID PRN TP RASH; Start 06/21/18 at 14:00 Duloxetine HCl (Cymbalta) 30 mg DAILY PO Last administered on 06/21/18 14:39; Start 06/21/18 at 14:30 Furosemide (Lasix) 40 mg DAILY PO Last administered on 06/21/18 14:39; Start at 14:30 Gabapentin (Neurontin) 300 mg BID@1600,2100 PO Last administered on 06/21/18 20 :44; Start 06/21/18 at 16:00 Pantoprazole Sodium (Protonix) 40 mg QHS PO Last administered on 06/21/18 20:44 ; Start 06/21/18 at 21:00 Potassium Chloride (Klor-Con) 10 meq DAILY PO Last administered on 06/21/18 14: 39; Start 06/21/18 at 14:30 Temazepam (Restoril) 15 mg QHS PO Last administered on 06/21/18 20:44; Start at 21:00 Bupropion HCl (Wellbutrin Xl) 300 mg DAILYWBKFT PO Last administered on 4/6/ 19at 14:39; Start 06/21/18 at 14:30 Diltiazem HCl (Cardizem 24hr Cd) 120 mg DAILY PO Last administered on 06/21/18at 14:39; Start 06/21/18 at 14:30 Loperamide HCl (Imodium) 2 mg PRN Q15MIN PRN PO DIARRHEA; Start 06/21/18 at 14: 15 Metformin HCl (Glucophage) 500 mg QHS PO ; Start 06/21/18 at 21:00 Ropinirole HCl (Requip) 0.5 mg BID@1600,2100 PO Last administered on 06/21/18at 20:44; Start 06/21/18 at 16:00 Non-Formulary Medication (Ropinirole Hcl (Requip)) 1 tab QHS PO ; Start 06/21/18 at 21:00; Status UNV Tizanidine HCl (Zanaflex) 8 mg Q8HRS PO ; Start 06/21/18 at 14:30; Stop 06/21/18 at 14:51; Status DC Lactobacillus Rhamnosus (Culturelle) 1 cap BID PO Last administered on at 20:44; Start 06/21/18 at 21:00 Tizanidine HCl (Zanaflex) 8 mg PRN Q8HRS PRN PO MUSCLE SPASMS; Start 06/21/18 at 15:00 Acetaminophen (Tylenol) 650 mg PRN Q6HRS PRN PO MILD PAIN / TEMP; Start at 20:00 Ondansetron HCl (Zofran) 4 mg PRN Q6HRS PRN IV NAUSEA/VOMITING; Start 06/21/18 at 20:00 Ondansetron HCl (Zofran Odt) 4 mg PRN Q6HRS PRN PO NAUSEA/VOMITING; Start at 20:00 Active Scripts Active Gabapentin 300 Mg Capsule 300 Mg PO BID@1600,2100 28 Days Reported [tonic water-rls/jose luis] Benzoin 60 Ml Tincture 60 Ml TP PRN BID PRN Metformin Hcl 500 Mg Tablet 500 Mg PO HS Alprazolam 0.5 Mg Tablet 1 Tab PO BID Temazepam 15 Mg Capsule 1 Cap PO QHS Tizanidine Hcl 4 Mg Tablet 2 Tab PO Q8HRS Diltiazem 24HR Cd (Diltiazem Hcl) 120 Mg Cap.er.24h 120 Mg PO DAILY Potassium Chloride 10 Meq Tablet.er 10 Meq PO DAILY Furosemide 40 Mg Tablet 40 Mg PO DAILY Imodium A-D (Loperamide HCl) 2 Mg Capsule 2 Mg PO TWICE WEEKLY PRN Bupropion Xl (Bupropion Hcl) 300 Mg Tab.er.24h 1 Tab PO DAILYWBKFT Requip (Ropinirole Hcl) 0.5 Mg Tablet 1 Tab PO BID Cymbalta (Duloxetine Hcl) 30 Mg Capsule. 1 Cap PO DAILY Atorvastatin Calcium 10 Mg Tablet 10 Mg PO HS Not given on this admission Take when needed Pantoprazole Sodium 40 Mg Tablet.dr 1 Tab PO QHS Received dose last night Take again tonight [place] 5-325 Tablet (Acetaminophen/Hydrocodone Bitart) 1 Each Tablet 1 Tab PO PRN Q4HRS PRN Given dose at 1:45 pm May take again after 9:45 Vitals/I & O Vital Sign - Last 24 Hours 06/21/18 06/21/18 06/21/18 06/21/18 08:00 09:24 11:00 13:55 Temp 97.5 97.5 Pulse 77 Resp 16 B/P (MAP) 125/59 (81) Pulse Ox 94 O2 Delivery Room Air Room Air Room Air Room Air 06/21/18 06/21/18 06/21/18 06/21/18 14:39 15:00 19:00 19:00 Temp 98.9 100.2 98.9 100.2 Pulse 77 81 92 Resp 16 20 B/P (MAP) 125/59 118/56 (76) 141/64 (89) Pulse Ox 90 94 O2 Delivery Room Air Nasal Cannula Room Air O2 Flow Rate 2.0 06/21/18 06/21/18 06/22/18 06/22/18 20:46 23:00 01:00 03:00 Temp 99.7 99.2 99.7 99.2 Pulse 93 90 Resp 18 20 16 20 B/P (MAP) 124/62 (82) 120/63 (82) Pulse Ox 94 96 96 95 O2 Delivery Room Air Room Air Room Air Room Air 06/22/18 06/22/18 04:58 05:54 Resp 18 18 Pulse Ox 95 95 O2 Delivery Room Air Room Air Intake and Output 06/21/18 06/21/18 06/22/18 15:00 23:00 07:00 Intake Total 1100 ml 500 ml Output Total 0 ml Balance 0 ml 1100 ml 500 ml ZOË HASKINS MD Jun 22, 2018 07:39
[2018-06-22] MEDS: glipiZIDE 5 MG TABLET PO SCH ×2 (08:31→16:10)
[2018-06-22] MEDS: buPROPion XL 150 MG TAB.ER.24H. PO SCH (08:32)
[2018-06-22] MEDS: DULoxetine HCL 30 MG CAPSULE.DR PO SCH (08:33)
[2018-06-22] MEDS: POTASSIUM CHLORIDE 10 MEQ TABLET.ER. PO SCH (08:33)
[2018-06-22] MEDS: LACTOBACILLUS RHAMNOSUS GG 1 CAPSULE. PO SCH ×2 (08:33→21:00)
[2018-06-22] MEDS: FUROSEMIDE 40 MG TABLET. PO SCH (08:34)
[2018-06-22] MEDS: ALPRAZolam 0.5 MG TABLET PO SCH (08:34)
[2018-06-22] MEDS: INSULIN LISPRO 300 UNITS/3 ML INSULN.PEN. SQ SCH ×3 (08:43→16:53)
[2018-06-22 11:00] VITALS: BP 123/60
--- NOTE | 2018-06-22 12:59 | PDOC ---
PROGRESS NOTES Chief Complaint Chief Complaint Sepsis UTI DM type2 Angina Depression HLD Fibromyalgia GERD HTN H/o Stroke Neuropathy RLS SAH Vertigo History of Present Illness History of Present Illness Pt seen and examined, family at bedside Plans of care discussed with family and RN Pt complaining of RLE leg pain, states she thinks this is secondary to arthritis - will order LE u/s to r/o DVT Denies any other complaints Vitals Vitals Vital Signs Date Time Temp Pulse Resp B/P (MAP) Pulse Ox O2 Delivery O2 Flow Rate FiO2 06/22/18 11:00 100.6 95 18 123/60 (81) 92 Room Air 100.6 06/21/18 19:00 2.0 Physical Exam General: Alert, Oriented X3, Cooperative, No acute distress Heart: Regular rate, Normal S1, Normal S2, No murmurs Lungs: Clear, Other (No ronchi, chrackles or wheezing) Abdomen: Normal bowel sounds, Soft, No tenderness Extremities: No clubbing, No cyanosis, No edema, Normal pulses, No tenderness/ swelling, Other (Reports leg pain and joint stiffness) Skin: No rashes, No breakdown, No significant lesion Labs LABS Laboratory Tests Test 06/21/18 17:49 06/21/18 20:59 06/22/18 04:25 06/22/18 11:41 Glucose (Fingerstick) 91 mg/dL (70-99) 81 mg/dL (70-99) 212 mg/dL (70-99) White Blood Count 7.5 x10^3/uL (4.0-11.0) Red Blood Count 4.22 x10^6/uL (3.50-5.40) Hemoglobin 12.1 g/dL (12.0-15.5) Hematocrit 36.3 % (36.0-47.0) Mean Corpuscular Volume 86 fL (79-100) Mean Corpuscular Hemoglobin 29 pg (25-35) Mean Corpuscular Hemoglobin Concent 33 g/dL (31-37) Red Cell Distribution Width 13.7 % (11.5-14.5) Platelet Count 196 x10^3/uL (140-400) Neutrophils (%) (Auto) 61 % (31-73) Lymphocytes (%) (Auto) 29 % (24-48) Monocytes (%) (Auto) 8 % (0-9) Eosinophils (%) (Auto) 1 % (0-3) Basophils (%) (Auto) 0 % (0-3) Neutrophils # (Auto) 4.6 x10^3uL (1.8-7.7) Lymphocytes # (Auto) 2.2 x10^3/uL (1.0-4.8) Monocytes # (Auto) 0.6 x10^3/uL (0.0-1.1) Eosinophils # (Auto) 0.1 x10^3/uL (0.0-0.7) Basophils # (Auto) 0.0 x10^3/uL (0.0-0.2) Sodium Level 141 mmol/L (136-145) Potassium Level 4.7 mmol/L (3.5-5.1) Chloride Level 101 mmol/L (98-107) Carbon Dioxide Level 35 mmol/L (21-32) Anion Gap 5 (6-14) Blood Urea Nitrogen 11 mg/dL (7-20) Creatinine 1.0 mg/dL (0.6-1.0) Estimated GFR (Cockcroft-Gault) 54.8 Glucose Level 105 mg/dL (70-99) Calcium Level 8.8 mg/dL (8.5-10.1) Review of Systems Review of Systems Denies CP and SOA Denies F/C Denies N/v Assessment and Plan Assessmemt and Plan Assessment: Sepsis UTI DM type2 Angina Depression HLD Fibromyalgia GERD HTN H/o Stroke Neuropathy RLS SAH Vertigo Plan: U/S ordered for new RLE leg pain, DVT ppx, Lovenox 40mg sq BS controlled, glipizide 5 BID & SSI ABX, Levofloxacin 500mg Home Rx Repeat labs in am PT/OT SNU Eval Problems Medical Problems: (1) Fever Status: Acute (2) Generalized weakness Status: Acute (3) Urinary tract infection Status: Acute Comment Review of Relevant I have reviewed the following items lucy (where applicable) has been applied. Labs Laboratory Tests Test 06/21/18 00:30 06/21/18 01:05 06/21/18 07:37 06/21/18 11:28 White Blood Count 8.6 x10^3/uL (4.0-11.0) Red Blood Count 4.34 x10^6/uL (3.50-5.40) Hemoglobin 12.4 g/dL (12.0-15.5) Hematocrit 36.8 % (36.0-47.0) Mean Corpuscular Volume 85 fL (79-100) Mean Corpuscular Hemoglobin 29 pg (25-35) Mean Corpuscular Hemoglobin Concent 34 g/dL (31-37) Red Cell Distribution Width 13.5 % (11.5-14.5) Platelet Count 200 x10^3/uL (140-400) Neutrophils (%) (Auto) 76 % (31-73) Lymphocytes (%) (Auto) 15 % (24-48) Monocytes (%) (Auto) 7 % (0-9) Eosinophils (%) (Auto) 1 % (0-3) Basophils (%) (Auto) 1 % (0-3) Neutrophils # (Auto) 6.6 x10^3uL (1.8-7.7) Lymphocytes # (Auto) 1.3 x10^3/uL (1.0-4.8) Monocytes # (Auto) 0.6 x10^3/uL (0.0-1.1) Eosinophils # (Auto) 0.1 x10^3/uL (0.0-0.7) Basophils # (Auto) 0.0 x10^3/uL (0.0-0.2) Sodium Level 136 mmol/L (136-145) Potassium Level 4.6 mmol/L (3.5-5.1) Chloride Level 97 mmol/L (98-107) Carbon Dioxide Level 31 mmol/L (21-32) Anion Gap 8 (6-14) Blood Urea Nitrogen 12 mg/dL (7-20) Creatinine 1.0 mg/dL (0.6-1.0) Estimated GFR (Cockcroft-Gault) 54.8 BUN/Creatinine Ratio 12 (6-20) Glucose Level 341 mg/dL (70-99) Lactic Acid Level 2.5 mmol/L (0.4-2.0) Calcium Level 8.9 mg/dL (8.5-10.1) Total Bilirubin 0.4 mg/dL (0.2-1.0) Aspartate Amino Transf (AST/SGOT) 46 U/L (15-37) Alanine Aminotransferase (ALT/SGPT) 52 U/L (14-59) Alkaline Phosphatase 131 U/L (46-116) Total Protein 7.6 g/dL (6.4-8.2) Albumin 3.2 g/dL (3.4-5.0) Albumin/Globulin Ratio 0.7 (1.0-1.7) Influenza Type A Antigen Negative (NEGATIVE) Influenza Type B Antigen Negative (NEGATIVE) Urine Collection Type U cath Urine Color Yellow Urine Clarity Clear Urine pH 7.5 Urine Specific [place] 1.015 Urine Protein Negative mg/dL (NEG-TRACE) Urine Glucose (UA) 500 mg/dL (NEG) Urine Ketones (Stick) Negative mg/dL (NEG) Urine Blood Small (NEG) Urine Nitrite Positive (NEG) Urine Bilirubin Negative (NEG) Urine Urobilinogen Dipstick 0.2 mg/dL (0.2 mg/dL) Urine Leukocyte Esterase Large (NEG) Urine RBC 3-5 /HPF (0-2) Urine WBC 20-40 /HPF (0-4) Urine Squamous Epithelial Cells Occ /LPF Urine Bacteria Many /HPF (0-FEW) Urine Mucus Slight /LPF Glucose (Fingerstick) 161 mg/dL (70-99) 268 mg/dL (70-99) Test 06/21/18 17:49 06/21/18 20:59 06/22/18 04:25 06/22/18 11:41 Glucose (Fingerstick) 91 mg/dL (70-99) 81 mg/dL (70-99) 212 mg/dL (70-99) White Blood Count 7.5 x10^3/uL (4.0-11.0) Red Blood Count 4.22 x10^6/uL (3.50-5.40) Hemoglobin 12.1 g/dL (12.0-15.5) Hematocrit 36.3 % (36.0-47.0) Mean Corpuscular Volume 86 fL (79-100) Mean Corpuscular Hemoglobin 29 pg (25-35) Mean Corpuscular Hemoglobin Concent 33 g/dL (31-37) Red Cell Distribution Width 13.7 % (11.5-14.5) Platelet Count 196 x10^3/uL (140-400) Neutrophils (%) (Auto) 61 % (31-73) Lymphocytes (%) (Auto) 29 % (24-48) Monocytes (%) (Auto) 8 % (0-9) Eosinophils (%) (Auto) 1 % (0-3) Basophils (%) (Auto) 0 % (0-3) Neutrophils # (Auto) 4.6 x10^3uL (1.8-7.7) Lymphocytes # (Auto) 2.2 x10^3/uL (1.0-4.8) Monocytes # (Auto) 0.6 x10^3/uL (0.0-1.1) Eosinophils # (Auto) 0.1 x10^3/uL (0.0-0.7) Basophils # (Auto) 0.0 x10^3/uL (0.0-0.2) Sodium Level 141 mmol/L (136-145) Potassium Level 4.7 mmol/L (3.5-5.1) Chloride Level 101 mmol/L (98-107) Carbon Dioxide Level 35 mmol/L (21-32) Anion Gap 5 (6-14) Blood Urea Nitrogen 11 mg/dL (7-20) Creatinine 1.0 mg/dL (0.6-1.0) Estimated GFR (Cockcroft-Gault) 54.8 Glucose Level 105 mg/dL (70-99) Calcium Level 8.8 mg/dL (8.5-10.1) Laboratory Tests Test 06/21/18 17:49 06/21/18 20:59 06/22/18 04:25 06/22/18 11:41 Glucose (Fingerstick) 91 mg/dL (70-99) 81 mg/dL (70-99) 212 mg/dL (70-99) White Blood Count 7.5 x10^3/uL (4.0-11.0) Red Blood Count 4.22 x10^6/uL (3.50-5.40) Hemoglobin 12.1 g/dL (12.0-15.5) Hematocrit 36.3 % (36.0-47.0) Mean Corpuscular Volume 86 fL (79-100) Mean Corpuscular Hemoglobin 29 pg (25-35) Mean Corpuscular Hemoglobin Concent 33 g/dL (31-37) Red Cell Distribution Width 13.7 % (11.5-14.5) Platelet Count 196 x10^3/uL (140-400) Neutrophils (%) (Auto) 61 % (31-73) Lymphocytes (%) (Auto) 29 % (24-48) Monocytes (%) (Auto) 8 % (0-9) Eosinophils (%) (Auto) 1 % (0-3) Basophils (%) (Auto) 0 % (0-3) Neutrophils # (Auto) 4.6 x10^3uL (1.8-7.7) Lymphocytes # (Auto) 2.2 x10^3/uL (1.0-4.8) Monocytes # (Auto) 0.6 x10^3/uL (0.0-1.1) Eosinophils # (Auto) 0.1 x10^3/uL (0.0-0.7) Basophils # (Auto) 0.0 x10^3/uL (0.0-0.2) Sodium Level 141 mmol/L (136-145) Potassium Level 4.7 mmol/L (3.5-5.1) Chloride Level 101 mmol/L (98-107) Carbon Dioxide Level 35 mmol/L (21-32) Anion Gap 5 (6-14) Blood Urea Nitrogen 11 mg/dL (7-20) Creatinine 1.0 mg/dL (0.6-1.0) Estimated GFR (Cockcroft-Gault) 54.8 Glucose Level 105 mg/dL (70-99) Calcium Level 8.8 mg/dL (8.5-10.1) Microbiology 06/21/18 Blood Culture - Preliminary, Resulted NO GROWTH AFTER 1 DAY Medications Current Medications Sodium Chloride 1,000 ml @ 1,000 mls/hr Q1H IV Last administered on 06/21/18at 00:30; Start 06/21/18 at 00:30; Stop 06/21/18 at 01:29; Status DC Ondansetron HCl (Zofran) 4 mg 1X ONCE IV Last administered on 06/21/18at 00:30; Start 06/21/18 at 00:30; Stop 06/21/18 at 00:31; Status DC Levofloxacin/ Dextrose 100 ml @ 100 mls/hr 1X ONCE IV Last administered on 06/21/18at 01:56; Start 06/21/18 at 02:00; Stop 06/21/18 at 02:59; Status DC Ketorolac Tromethamine (Toradol 15mg Vial) 15 mg 1X ONCE IV Last administered on 06/21/18 02:06; Start 06/21/18 at 02:00; Stop 06/21/18 at 02:01; Status DC Acetaminophen (Tylenol) 1,000 mg 1X ONCE PO Last administered on 06/21/18at 02: 06; Start 06/21/18 at 02:00; Stop 06/21/18 at 02:01; Status DC Ondansetron HCl (Zofran) 4 mg PRN Q8HRS PRN IV NAUSEA/VOMITING; Start 06/21/18 at 02:15; Stop 06/22/18 at 02:14; Status DC Sodium Chloride 1,000 ml @ 125 mls/hr Q8H IV Last administered on 06/21/18at 04: 21; Start 06/21/18 at 02:15; Stop 06/22/18 at 02:14; Status DC Acetaminophen (Tylenol) 650 mg PRN Q4HRS PRN PO FEVER Last administered on 05:08; Start 06/21/18 at 02:15; Stop 06/22/18 at 02:14; Status DC Acetaminophen/ Hydrocodone Bitart (Lortab 5/325) 1 tab PRN Q4HRS PRN PO MODERATE-SEVERE PAIN Last administered on 06/22/18at 04:58; Start 06/21/18 at 04:45 Insulin Human Lispro (HumaLOG) 0-5 UNITS TIDWMEALS SQ Last administered on 08:43; Start 06/21/18 at 08:30 Dextrose (Dextrose 50%-Water Syringe) 12.5 gm PRN Q15MIN PRN IV SEE COMMENTS; Start 06/21/18 at 08:15 Levofloxacin/ Dextrose 100 ml @ 100 mls/hr Q24H IV Last administered on at 20:44; Start 06/21/18 at 21:00 Glipizide (Glucotrol) 5 mg BIDBFRMEAL PO Last administered on 06/22/18 08:31; Start 06/21/18 at 11:30 Alprazolam (Xanax) 0.5 mg BID PO Last administered on 06/22/18 08:34; Start 06/21/18 at 14:30 Atorvastatin Calcium (Lipitor) 10 mg HS PO Last administered on 06/21/18 20:44 ; Start 06/21/18 at 21:00 Benzoin (Benzoin Tincture) 1 francisco PRN BID PRN TP RASH; Start 06/21/18 at 14:00 Duloxetine HCl (Cymbalta) 30 mg DAILY PO Last administered on 06/22/18 08:33; Start 06/21/18 at 14:30 Furosemide (Lasix) 40 mg DAILY PO Last administered on 06/22/18 08:34; Start at 14:30 Gabapentin (Neurontin) 300 mg BID@1600,2100 PO Last administered on 06/21/18 20 :44; Start 06/21/18 at 16:00 Pantoprazole Sodium (Protonix) 40 mg QHS PO Last administered on 06/21/18 20:44 ; Start 06/21/18 at 21:00 Potassium Chloride (Klor-Con) 10 meq DAILY PO Last administered on 06/22/18 08: 33; Start 06/21/18 at 14:30 Temazepam (Restoril) 15 mg QHS PO Last administered on 06/21/18 20:44; Start at 21:00 Bupropion HCl (Wellbutrin Xl) 300 mg DAILYWBKFT PO Last administered on 08:32; Start 06/21/18 at 14:30 Diltiazem HCl (Cardizem 24hr Cd) 120 mg DAILY PO Last administered on 06/22/18 08:33; Start 06/21/18 at 14:30 Loperamide HCl (Imodium) 2 mg PRN Q15MIN PRN PO DIARRHEA; Start 06/21/18 at 14: 15 Metformin HCl (Glucophage) 500 mg QHS PO ; Start 06/21/18 at 21:00 Ropinirole HCl (Requip) 0.5 mg BID@1600,2100 PO Last administered on 06/21/18 20:44; Start 06/21/18 at 16:00 Non-Formulary Medication (Ropinirole Hcl (Requip)) 1 tab QHS PO ; Start 06/21/18 at 21:00; Status UNV Tizanidine HCl (Zanaflex) 8 mg Q8HRS PO ; Start 06/21/18 at 14:30; Stop 06/21/18 at 14:51; Status DC Lactobacillus Rhamnosus (Culturelle) 1 cap BID PO Last administered on at 08:33; Start 06/21/18 at 21:00 Tizanidine HCl (Zanaflex) 8 mg PRN Q8HRS PRN PO MUSCLE SPASMS; Start 06/21/18 at 15:00 Acetaminophen (Tylenol) 650 mg PRN Q6HRS PRN PO MILD PAIN / TEMP Last administered on 06/22/18at 10:51; Start 06/21/18 at 20:00 Ondansetron HCl (Zofran) 4 mg PRN Q6HRS PRN IV NAUSEA/VOMITING; Start 06/21/18 at 20:00 Ondansetron HCl (Zofran Odt) 4 mg PRN Q6HRS PRN PO NAUSEA/VOMITING; Start at 20:00 Active Scripts Active Gabapentin 300 Mg Capsule 300 Mg PO BID@1600,2100 28 Days Reported [tonic water-rls/jose luis] Benzoin 60 Ml Tincture 60 Ml TP PRN BID PRN Metformin Hcl 500 Mg Tablet 500 Mg PO HS Alprazolam 0.5 Mg Tablet 1 Tab PO BID Temazepam 15 Mg Capsule 1 Cap PO QHS Tizanidine Hcl 4 Mg Tablet 2 Tab PO Q8HRS Diltiazem 24HR Cd (Diltiazem Hcl) 120 Mg Cap.er.24h 120 Mg PO DAILY Potassium Chloride 10 Meq Tablet.er 10 Meq PO DAILY Furosemide 40 Mg Tablet 40 Mg PO DAILY Imodium A-D (Loperamide HCl) 2 Mg Capsule 2 Mg PO TWICE WEEKLY PRN Bupropion Xl (Bupropion Hcl) 300 Mg Tab.er.24h 1 Tab PO DAILYWBKFT Requip (Ropinirole Hcl) 0.5 Mg Tablet 1 Tab PO BID Cymbalta (Duloxetine Hcl) 30 Mg Capsule.dr 1 Cap PO DAILY Atorvastatin Calcium 10 Mg Tablet 10 Mg PO HS Not given on this admission Take when needed Pantoprazole Sodium 40 Mg Tablet.dr 1 Tab PO QHS Received dose last night Take again tonight [place] 5-325 Tablet (Acetaminophen/Hydrocodone Bitart) 1 Each Tablet 1 Tab PO PRN Q4HRS PRN Given dose at 1:45 pm May take again after 9:45 Vitals/I & O Vital Sign - Last 24 Hours 06/21/18 06/21/18 06/21/18 06/21/18 13:55 14:39 15:00 19:00 Temp 98.9 100.2 98.9 100.2 Pulse 77 81 92 Resp 16 20 B/P (MAP) 125/59 118/56 (76) 141/64 (89) Pulse Ox 90 94 O2 Delivery Room Air Room Air Nasal Cannula O2 Flow Rate 2.0 06/21/18 06/21/18 06/21/18 06/22/18 19:00 20:46 23:00 01:00 Temp 99.7 99.7 Pulse 93 Resp 18 20 16 B/P (MAP) 124/62 (82) Pulse Ox 94 96 96 O2 Delivery Room Air Room Air Room Air Room Air 06/22/18 06/22/18 06/22/18 06/22/18 03:00 04:58 05:54 07:00 Temp 99.2 99.4 99.2 99.4 Pulse 90 94 Resp 20 18 18 18 B/P (MAP) 120/63 (82) 113/59 (77) Pulse Ox 95 95 95 95 O2 Delivery Room Air Room Air Room Air Room Air 06/22/18 06/22/18 08:33 11:00 Temp 100.6 100.6 Pulse 94 95 Resp 18 B/P (MAP) 113/59 123/60 (81) Pulse Ox 92 O2 Delivery Room Air Intake and Output 06/21/18 06/21/18 06/22/18 15:00 23:00 07:00 Intake Total 1100 ml 500 ml Output Total 0 ml Balance 0 ml 1100 ml 500 ml JIL DAVID III DO Jun 22, 2018 12:59
[2018-06-22] MEDS ORDERED: ALPRAZolam 0.5 MG TABLET PO PRN (13:45)
--- NOTE | 2018-06-22 14:50 | RAD ---
Right leg venous Doppler study: Clinical indications: Right calf pain.. Findings: Duplex sonography (including forman scale evaluation and color flow and waveform spectral analysis) of the proximal aspect of the greater saphenous vein and proximal aspect of the profunda femoral vein and the entire length of the common femoral and superficial femoral and popliteal veins and the tibioperoneal trunk and the proximal aspect of the posterior tibial and peroneal veins of the right leg was performed. Normal compressibility and respiratory variation of Doppler flow is seen. Color flow is seen within the lumen of these veins. Thus, there are no sonographic findings of deep venous thrombosis within these veins. Impression: There are no sonographic findings of deep venous thrombosis within the veins discussed above of the right lower extremity. Electronically signed by: Ramon Marie MD (06/22/2018 2:47 PM) [facility] [place]
[2018-06-22 15:00] VITALS: BP 129/53
[2018-06-22] MEDS: rOPINIRole 0.25 MG TABLET. PO SCH ×2 (16:10→21:00)
[2018-06-22] MEDS: GABAPENTIN 300 MG CAPSULE. PO SCH ×2 (16:10→21:00)
[2018-06-22 19:00] VITALS: BP 127/57
[2018-06-22] MEDS: metFORMIN 500 MG TABLET PO SCH (20:05)
[2018-06-22] MEDS ORDERED: ENOXAPARIN 40 MG/0.4 ML SYRINGE. SQ SCH (21:00)
[2018-06-22] MEDS: PANTOPRAZOLE 40 MG TABLET.DR. PO SCH (21:00)
[2018-06-22] MEDS: ATORVASTATIN CALCIUM 10 MG TABLET. PO SCH (21:00)
[2018-06-22] MEDS: TEMAZEPAM 15 MG CAPSULE PO SCH (21:00)
[2018-06-22 23:00] VITALS: BP 119/49
[2018-06-23 03:00] VITALS: BP 120/58
[2018-06-23] MEDS: HYDROcodone/APAP 5/325MG 1 TAB TABLET PO PRN (03:22)
[2018-06-23 06:01] LABS: BASO % 1 % (0-3); EOS # 0.1 x10^3/uL (0.0-0.7); EOS % 3 % (0-3); HEMATOCRIT 34.4 % (36.0-47.0); HEMOGLOBIN 11.7 g/dL (12.0-15.5); LYMPH # 1.6 x10^3/uL (1.0-4.8); LYMPH % 33 % (24-48); MEAN CORPUSCULAR HEMOGLOBIN 29 pg (25-35); MEAN CORPUSCULAR HGB CONC 34 g/dL (31-37); MEAN CORPUSCULAR VOLUME 86 fL (79-100); MONO # 0.6 x10^3/uL (0.0-1.1); MONO % 12 % (0-9); NEUT # 2.6 x10^3uL (1.8-7.7); NEUT % 52 % (31-73); PLATELET COUNT 172 x10^3/uL (140-400); RED BLOOD COUNT 4.01 x10^6/uL (3.50-5.40); RED CELL DISTRIBUTION WIDTH 13.6 % (11.5-14.5); WHITE BLOOD COUNT 4.9 x10^3/uL (4.0-11.0)
[2018-06-23 06:15] LABS: CALCIUM 8.8 mg/dL (8.5-10.1); CREATININE 0.8 mg/dL (0.6-1.0); GFR 70.9; POTASSIUM 4.5 mmol/L (3.5-5.1)
[2018-06-23 07:00] VITALS: BP 136/66
[2018-06-23] MEDS: buPROPion XL 150 MG TAB.ER.24H. PO SCH (07:51)
[2018-06-23] MEDS: glipiZIDE 5 MG TABLET PO SCH (07:51)
[2018-06-23] MEDS: POTASSIUM CHLORIDE 10 MEQ TABLET.ER. PO SCH (07:52)
[2018-06-23] MEDS: LACTOBACILLUS RHAMNOSUS GG 1 CAPSULE. PO SCH (07:52)
[2018-06-23] MEDS: DULoxetine HCL 30 MG CAPSULE.DR PO SCH (07:52)
[2018-06-23] MEDS: FUROSEMIDE 40 MG TABLET. PO SCH (07:53)
[2018-06-23] MEDS: INSULIN LISPRO 300 UNITS/3 ML INSULN.PEN. SQ SCH ×2 (07:56→11:55)
--- NOTE | 2018-06-23 10:27 | NUR ---
SW following for discharge planning. Discussed with RN, pt is from home with . SW met with pt with Dr. Schultz, pt wanting to go home and does not want home health at discharge. SW reminded pt if she changes her mind to contact her PCP to have home health ordered. No further SW needs.
[2018-06-23 11:00] VITALS: BP 129/69
--- NOTE | 2018-06-23 11:03 | PDOC ---
PROGRESS NOTES Chief Complaint Chief Complaint Sepsis UTI DM type2 Angina Depression HLD Fibromyalgia GERD HTN H/o Stroke Neuropathy RLS SAH Vertigo History of Present Illness History of Present Illness Pt seen and examined this morning Some mild gate instability noted as patent walked back to bed Discussed plans of care with pt at length, she has refused Home Health services No other complaints today and wishes to return home Vitals Vitals Vital Signs Date Time Temp Pulse Resp B/P (MAP) Pulse Ox O2 Delivery O2 Flow Rate FiO2 06/23/18 07:53 81 136/66 06/23/18 07:50 Room Air 06/23/18 07:00 98.1 18 92 98.1 Physical Exam General: Alert, Oriented X3, Cooperative, No acute distress, Other ([place] instability) Heart: Regular rate, Normal S1, Normal S2, No murmurs Lungs: Clear, Other (No ronchi, chrackles or wheezing) Abdomen: Normal bowel sounds, Soft, No tenderness Extremities: No clubbing, No cyanosis, No edema, Normal pulses, No tenderness/ swelling, Other Skin: No rashes, No breakdown, No significant lesion Labs LABS Laboratory Tests Test 06/22/18 11:41 06/22/18 16:32 06/22/18 20:57 06/23/18 05:37 Glucose (Fingerstick) 212 mg/dL (70-99) 283 mg/dL (70-99) 317 mg/dL (70-99) White Blood Count 4.9 x10^3/uL (4.0-11.0) Red Blood Count 4.01 x10^6/uL (3.50-5.40) Hemoglobin 11.7 g/dL (12.0-15.5) Hematocrit 34.4 % (36.0-47.0) Mean Corpuscular Volume 86 fL (79-100) Mean Corpuscular Hemoglobin 29 pg (25-35) Mean Corpuscular Hemoglobin Concent 34 g/dL (31-37) Red Cell Distribution Width 13.6 % (11.5-14.5) Platelet Count 172 x10^3/uL (140-400) Neutrophils (%) (Auto) 52 % (31-73) Lymphocytes (%) (Auto) 33 % (24-48) Monocytes (%) (Auto) 12 % (0-9) Eosinophils (%) (Auto) 3 % (0-3) Basophils (%) (Auto) 1 % (0-3) Neutrophils # (Auto) 2.6 x10^3uL (1.8-7.7) Lymphocytes # (Auto) 1.6 x10^3/uL (1.0-4.8) Monocytes # (Auto) 0.6 x10^3/uL (0.0-1.1) Eosinophils # (Auto) 0.1 x10^3/uL (0.0-0.7) Basophils # (Auto) 0.0 x10^3/uL (0.0-0.2) Sodium Level 142 mmol/L (136-145) Potassium Level 4.5 mmol/L (3.5-5.1) Chloride Level 101 mmol/L (98-107) Carbon Dioxide Level 35 mmol/L (21-32) Anion Gap 6 (6-14) Blood Urea Nitrogen 8 mg/dL (7-20) Creatinine 0.8 mg/dL (0.6-1.0) Estimated GFR (Cockcroft-Gault) 70.9 Glucose Level 207 mg/dL (70-99) Calcium Level 8.8 mg/dL (8.5-10.1) Test 06/23/18 07:43 Glucose (Fingerstick) 152 mg/dL (70-99) Review of Systems Review of Systems Denies any CP, SOB, N/V, F/C. Assessment and Plan Assessmemt and Plan Assessment: Sepsis UTI DM type2 Angina Depression HLD Fibromyalgia GERD HTN H/o Stroke Neuropathy RLS SAH Vertigo Plan: Pt would like to return home today and does not want home health care, states she has had HH before Rx given for Levaquin, Glipizide and NovoLog with patient education F/u with PCP in 1-2 weeks U/s of BLE negative for DVT DVT ppx, Lovenox 40mg sq BS controlled, glipizide 5 BID & SSI ABX, Levofloxacin 500mg Home Rx PT/OT orders Problems Medical Problems: (1) Fever Status: Acute (2) Generalized weakness Status: Acute (3) Urinary tract infection Status: Acute Comment Review of Relevant I have reviewed the following items lucy (where applicable) has been applied. Labs Laboratory Tests Test 06/21/18 11:28 06/21/18 17:49 06/21/18 20:59 06/22/18 04:25 Glucose (Fingerstick) 268 mg/dL (70-99) 91 mg/dL (70-99) 81 mg/dL (70-99) White Blood Count 7.5 x10^3/uL (4.0-11.0) Red Blood Count 4.22 x10^6/uL (3.50-5.40) Hemoglobin 12.1 g/dL (12.0-15.5) Hematocrit 36.3 % (36.0-47.0) Mean Corpuscular Volume 86 fL (79-100) Mean Corpuscular Hemoglobin 29 pg (25-35) Mean Corpuscular Hemoglobin Concent 33 g/dL (31-37) Red Cell Distribution Width 13.7 % (11.5-14.5) Platelet Count 196 x10^3/uL (140-400) Neutrophils (%) (Auto) 61 % (31-73) Lymphocytes (%) (Auto) 29 % (24-48) Monocytes (%) (Auto) 8 % (0-9) Eosinophils (%) (Auto) 1 % (0-3) Basophils (%) (Auto) 0 % (0-3) Neutrophils # (Auto) 4.6 x10^3uL (1.8-7.7) Lymphocytes # (Auto) 2.2 x10^3/uL (1.0-4.8) Monocytes # (Auto) 0.6 x10^3/uL (0.0-1.1) Eosinophils # (Auto) 0.1 x10^3/uL (0.0-0.7) Basophils # (Auto) 0.0 x10^3/uL (0.0-0.2) Sodium Level 141 mmol/L (136-145) Potassium Level 4.7 mmol/L (3.5-5.1) Chloride Level 101 mmol/L (98-107) Carbon Dioxide Level 35 mmol/L (21-32) Anion Gap 5 (6-14) Blood Urea Nitrogen 11 mg/dL (7-20) Creatinine 1.0 mg/dL (0.6-1.0) Estimated GFR (Cockcroft-Gault) 54.8 Glucose Level 105 mg/dL (70-99) Calcium Level 8.8 mg/dL (8.5-10.1) Test 06/22/18 11:41 06/22/18 16:32 06/22/18 20:57 06/23/18 05:37 Glucose (Fingerstick) 212 mg/dL (70-99) 283 mg/dL (70-99) 317 mg/dL (70-99) White Blood Count 4.9 x10^3/uL (4.0-11.0) Red Blood Count 4.01 x10^6/uL (3.50-5.40) Hemoglobin 11.7 g/dL (12.0-15.5) Hematocrit 34.4 % (36.0-47.0) Mean Corpuscular Volume 86 fL (79-100) Mean Corpuscular Hemoglobin 29 pg (25-35) Mean Corpuscular Hemoglobin Concent 34 g/dL (31-37) Red Cell Distribution Width 13.6 % (11.5-14.5) Platelet Count 172 x10^3/uL (140-400) Neutrophils (%) (Auto) 52 % (31-73) Lymphocytes (%) (Auto) 33 % (24-48) Monocytes (%) (Auto) 12 % (0-9) Eosinophils (%) (Auto) 3 % (0-3) Basophils (%) (Auto) 1 % (0-3) Neutrophils # (Auto) 2.6 x10^3uL (1.8-7.7) Lymphocytes # (Auto) 1.6 x10^3/uL (1.0-4.8) Monocytes # (Auto) 0.6 x10^3/uL (0.0-1.1) Eosinophils # (Auto) 0.1 x10^3/uL (0.0-0.7) Basophils # (Auto) 0.0 x10^3/uL (0.0-0.2) Sodium Level 142 mmol/L (136-145) Potassium Level 4.5 mmol/L (3.5-5.1) Chloride Level 101 mmol/L (98-107) Carbon Dioxide Level 35 mmol/L (21-32) Anion Gap 6 (6-14) Blood Urea Nitrogen 8 mg/dL (7-20) Creatinine 0.8 mg/dL (0.6-1.0) Estimated GFR (Cockcroft-Gault) 70.9 Glucose Level 207 mg/dL (70-99) Calcium Level 8.8 mg/dL (8.5-10.1) Test 06/23/18 07:43 Glucose (Fingerstick) 152 mg/dL (70-99) Laboratory Tests Test 06/22/18 11:41 06/22/18 16:32 06/22/18 20:57 06/23/18 05:37 Glucose (Fingerstick) 212 mg/dL (70-99) 283 mg/dL (70-99) 317 mg/dL (70-99) White Blood Count 4.9 x10^3/uL (4.0-11.0) Red Blood Count 4.01 x10^6/uL (3.50-5.40) Hemoglobin 11.7 g/dL (12.0-15.5) Hematocrit 34.4 % (36.0-47.0) Mean Corpuscular Volume 86 fL (79-100) Mean Corpuscular Hemoglobin 29 pg (25-35) Mean Corpuscular Hemoglobin Concent 34 g/dL (31-37) Red Cell Distribution Width 13.6 % (11.5-14.5) Platelet Count 172 x10^3/uL (140-400) Neutrophils (%) (Auto) 52 % (31-73) Lymphocytes (%) (Auto) 33 % (24-48) Monocytes (%) (Auto) 12 % (0-9) Eosinophils (%) (Auto) 3 % (0-3) Basophils (%) (Auto) 1 % (0-3) Neutrophils # (Auto) 2.6 x10^3uL (1.8-7.7) Lymphocytes # (Auto) 1.6 x10^3/uL (1.0-4.8) Monocytes # (Auto) 0.6 x10^3/uL (0.0-1.1) Eosinophils # (Auto) 0.1 x10^3/uL (0.0-0.7) Basophils # (Auto) 0.0 x10^3/uL (0.0-0.2) Sodium Level 142 mmol/L (136-145) Potassium Level 4.5 mmol/L (3.5-5.1) Chloride Level 101 mmol/L (98-107) Carbon Dioxide Level 35 mmol/L (21-32) Anion Gap 6 (6-14) Blood Urea Nitrogen 8 mg/dL (7-20) Creatinine 0.8 mg/dL (0.6-1.0) Estimated GFR (Cockcroft-Gault) 70.9 Glucose Level 207 mg/dL (70-99) Calcium Level 8.8 mg/dL (8.5-10.1) Test 06/23/18 07:43 Glucose (Fingerstick) 152 mg/dL (70-99) Microbiology 06/21/18 Blood Culture - Preliminary, Resulted NO GROWTH AFTER 2 DAYS 06/21/18 Urine Culture - Preliminary, Resulted 06/21/18 Urine Culture Result 1 (PATTI) - Preliminary, Resulted Medications Current Medications Sodium Chloride 1,000 ml @ 1,000 mls/hr Q1H IV Last administered on 06/21/18at 00:30; Start 06/21/18 at 00:30; Stop 06/21/18 at 01:29; Status DC Ondansetron HCl (Zofran) 4 mg 1X ONCE IV Last administered on 06/21/18at 00:30; Start 06/21/18 at 00:30; Stop 06/21/18 at 00:31; Status DC Levofloxacin/ Dextrose 100 ml @ 100 mls/hr 1X ONCE IV Last administered on 06/21/18at 01:56; Start 06/21/18 at 02:00; Stop 06/21/18 at 02:59; Status DC Ketorolac Tromethamine (Toradol 15mg Vial) 15 mg 1X ONCE IV Last administered on 06/21/18at 02:06; Start 06/21/18 at 02:00; Stop 06/21/18 at 02:01; Status DC Acetaminophen (Tylenol) 1,000 mg 1X ONCE PO Last administered on 06/21/18at 02: 06; Start 06/21/18 at 02:00; Stop 06/21/18 at 02:01; Status DC Ondansetron HCl (Zofran) 4 mg PRN Q8HRS PRN IV NAUSEA/VOMITING; Start 06/21/18 at 02:15; Stop 06/22/18 at 02:14; Status DC Sodium Chloride 1,000 ml @ 125 mls/hr Q8H IV Last administered on 06/21/18at 04: 21; Start 06/21/18 at 02:15; Stop 06/22/18 at 02:14; Status DC Acetaminophen (Tylenol) 650 mg PRN Q4HRS PRN PO FEVER Last administered on 05:08; Start 06/21/18 at 02:15; Stop 06/22/18 at 02:14; Status DC Acetaminophen/ Hydrocodone Bitart (Lortab 5/325) 1 tab PRN Q4HRS PRN PO MODERATE-SEVERE PAIN Last administered on 06/23/18 03:22; Start 06/21/18 at 04:45 Insulin Human Lispro (HumaLOG) 0-5 UNITS TIDWMEALS SQ Last administered on 07:56; Start 06/21/18 at 08:30 Dextrose (Dextrose 50%-Water Syringe) 12.5 gm PRN Q15MIN PRN IV SEE COMMENTS; Start 06/21/18 at 08:15 Levofloxacin/ Dextrose 100 ml @ 100 mls/hr Q24H IV Last administered on 20:44; Start 06/21/18 at 21:00; Stop 06/22/18 at 15:13; Status DC Glipizide (Glucotrol) 5 mg BIDBFRMEAL PO Last administered on 06/23/18 07:51; Start 06/21/18 at 11:30 Alprazolam (Xanax) 0.5 mg BID PO Last administered on 06/22/18 08:34; Start 06/21/18 at 14:30; Stop 06/22/18 at 13:44; Status DC Atorvastatin Calcium (Lipitor) 10 mg HS PO Last administered on 06/22/18 21:00 ; Start 06/21/18 at 21:00 Benzoin (Benzoin Tincture) 1 francisco PRN BID PRN TP RASH; Start 06/21/18 at 14:00 Duloxetine HCl (Cymbalta) 30 mg DAILY PO Last administered on 06/23/18 07:52; Start 06/21/18 at 14:30 Furosemide (Lasix) 40 mg DAILY PO Last administered on 06/23/18 07:53; Start at 14:30 Gabapentin (Neurontin) 300 mg BID@1600,2100 PO Last administered on 06/22/18at 21 :00; Start 06/21/18 at 16:00 Pantoprazole Sodium (Protonix) 40 mg QHS PO Last administered on 06/22/18 21:00 ; Start 06/21/18 at 21:00 Potassium Chloride (Klor-Con) 10 meq DAILY PO Last administered on 06/23/18 07: 52; Start 06/21/18 at 14:30 Temazepam (Restoril) 15 mg QHS PO Last administered on 06/22/18 21:00; Start at 21:00 Bupropion HCl (Wellbutrin Xl) 300 mg DAILYWBKFT PO Last administered on 07:51; Start 06/21/18 at 14:30 Diltiazem HCl (Cardizem 24hr Cd) 120 mg DAILY PO Last administered on 06/23/18 07:53; Start 06/21/18 at 14:30 Loperamide HCl (Imodium) 2 mg PRN Q15MIN PRN PO DIARRHEA; Start 06/21/18 at 14: 15 Metformin HCl (Glucophage) 500 mg QHS PO ; Start 06/21/18 at 21:00 Ropinirole HCl (Requip) 0.5 mg BID@1600,2100 PO Last administered on 06/22/18 21:00; Start 06/21/18 at 16:00 Non-Formulary Medication (Ropinirole Hcl (Requip)) 1 tab QHS PO ; Start 06/21/18 at 21:00; Status UNV Tizanidine HCl (Zanaflex) 8 mg Q8HRS PO ; Start 06/21/18 at 14:30; Stop 06/21/18 at 14:51; Status DC Lactobacillus Rhamnosus (Culturelle) 1 cap BID PO Last administered on 07:52; Start 06/21/18 at 21:00 Tizanidine HCl (Zanaflex) 8 mg PRN Q8HRS PRN PO MUSCLE SPASMS; Start 06/21/18 at 15:00 Acetaminophen (Tylenol) 650 mg PRN Q6HRS PRN PO MILD PAIN / TEMP Last administered on 06/22/18 10:51; Start 06/21/18 at 20:00 Ondansetron HCl (Zofran) 4 mg PRN Q6HRS PRN IV NAUSEA/VOMITING; Start 06/21/18 at 20:00 Ondansetron HCl (Zofran Odt) 4 mg PRN Q6HRS PRN PO NAUSEA/VOMITING; Start at 20:00 Alprazolam (Xanax) 0.5 mg PRN TID PRN PO Anxiety Last administered on 06/22/18at 13:50; Start 06/22/18 at 13:45 Enoxaparin Sodium (Lovenox 40mg Syringe) 40 mg Q24H SQ Last administered on 06/22at 20:59; Start 06/22/18 at 21:00 Levofloxacin (Levaquin) 500 mg HS PO ; Start 06/22/18 at 21:00; Status Cancel Levofloxacin/ Dextrose 100 ml @ 100 mls/hr Q24H IV Last administered on at 21:00; Start 06/22/18 at 21:00 Active Scripts Active Gabapentin 300 Mg Capsule 300 Mg PO BID@1600,2100 28 Days Reported [tonic water-rls/jose luis] Benzoin 60 Ml Tincture 60 Ml TP PRN BID PRN Metformin Hcl 500 Mg Tablet 500 Mg PO HS Alprazolam 0.5 Mg Tablet 1 Tab PO BID Temazepam 15 Mg Capsule 1 Cap PO QHS Tizanidine Hcl 4 Mg Tablet 2 Tab PO Q8HRS Diltiazem 24HR Cd (Diltiazem Hcl) 120 Mg Cap.er.24h 120 Mg PO DAILY Potassium Chloride 10 Meq Tablet.er 10 Meq PO DAILY Furosemide 40 Mg Tablet 40 Mg PO DAILY Imodium A-D (Loperamide HCl) 2 Mg Capsule 2 Mg PO TWICE WEEKLY PRN Bupropion Xl (Bupropion Hcl) 300 Mg Tab.er.24h 1 Tab PO DAILYWBKFT Requip (Ropinirole Hcl) 0.5 Mg Tablet 1 Tab PO BID Cymbalta (Duloxetine Hcl) 30 Mg Capsule.dr 1 Cap PO DAILY Atorvastatin Calcium 10 Mg Tablet 10 Mg PO HS Not given on this admission Take when needed Pantoprazole Sodium 40 Mg Tablet.dr 1 Tab PO QHS Received dose last night Take again tonight [place] 5-325 Tablet (Acetaminophen/Hydrocodone Bitart) 1 Each Tablet 1 Tab PO PRN Q4HRS PRN Given dose at 1:45 pm May take again after 9:45 Vitals/I & O Vital Sign - Last 24 Hours 06/22/18 06/22/18 06/22/18 06/22/18 11:00 12:20 15:00 19:00 Temp 100.6 98.6 98.1 100.6 98.6 98.1 Pulse 95 84 79 Resp 18 18 16 B/P (MAP) 123/60 (81) 129/53 (78) 127/57 (80) Pulse Ox 92 93 93 O2 Delivery Room Air Room Air Room Air Room Air 06/22/18 06/22/18 06/22/18 06/23/18 19:05 21:00 23:00 03:00 Temp 98.3 98.3 98.3 98.3 Pulse 81 77 Resp 16 16 16 B/P (MAP) 119/49 (72) 120/58 (78) Pulse Ox 93 94 94 O2 Delivery Room Air Room Air Room Air Room Air 06/23/18 06/23/18 06/23/18 06/23/18 03:22 04:07 07:00 07:50 Temp 98.1 98.1 Pulse 81 Resp 17 16 18 B/P (MAP) 136/66 (89) Pulse Ox 94 94 92 O2 Delivery Room Air Room Air Room Air Room Air 06/23/18 07:53 Pulse 81 B/P (MAP) 136/66 Intake and Output 06/22/18 06/22/18 06/23/18 14:59 22:59 06:59 Intake Total 620 ml 400 ml 340 ml Balance 620 ml 400 ml 340 ml JIL DAVID III DO Jun 23, 2018 11:03
--- NOTE | 2018-06-23 12:55 | NUR ---
Discharge Note: [facility] [address] Discharge instructions and discharge home medications reviewed with Patient and a copy given. All questions have been answered and understanding verbalized. The following instructions and handouts were given: discharge instructions, new prescriptions, education and follow up recommendations. Discontinued lines and drains: Peripheral IV discontinued intact. Patient discharged to Home or Self Care with Spouse via Wheelchair off unit by [employer].
--- NOTE | 2018-06-23 19:19 | DS ---
DATE OF DISCHARGE: 06/23/2018 ADMISSION DIAGNOSES: 1. Urinary tract infection with fever and sepsis. 2. Hyperglycemia. 3. Noncompliance. DISCHARGE DIAGNOSES: Resolving urinary tract infection. CONSULTS: None. PROCEDURES: None. HOSPITAL COURSE: The patient is a pleasant middle-aged female who presented with UTI. She was weak. She had a fever of 103 and met sepsis criteria. We gave her IV antibiotics and fluids, started her on some glipizide and scheduled insulin because she was noncompliant with that. Over the past few days, she is doing much better. I examined this morning. Her heart tones are normal. Her lungs were clear. Abdomen was soft. Her glucose was coming down. We plan to discharge and have her continue taking some p.o. antibiotics and we are going to schedule her some insulin at home as well as the glipizide. DISPOSITION: Home. ACTIVITY: As tolerated. DIET: Low sodium. MEDICATIONS: Please see the MRAD. I did give her a prescription for glipizide 10 a day and NovoLog 10 t.i.d. with meals and Lantus 20 at bedtime. TOTAL TIME: 32 minutes. JIL DAVID DO DR: CHARITO/antonio JOB#: [id number] / [id number]
[2018-08-04] MEDS ORDERED: INSU100I17 SQ (10:29)
[2018-08-04] MEDS ORDERED: GLIP10TA13 PO (10:29)
[2018-08-04] MEDS ORDERED: MECL12.52 PO (10:29)
== END 2018-06-23 12:57 | disposition home or self-care (01) | DRG 872 ==
LOC: ER 00:13 → 5 NORTH 02:05
PROVIDERS: ADMIT Internal Medicine; ATTEND Internal Medicine
DX: A41.9 Sepsis, unspecified organism (principal); N39.0 Urinary tract infection, site not specified; E11.65 Type 2 diabetes mellitus with hyperglycemia; I10 Essential (primary) hypertension; E78.5 Hyperlipidemia, unspecified; F32.9 Major depressive disorder, single episode, unspecified; G25.81 Restless legs syndrome; E11.40 Type 2 diabetes mellitus with diabetic neuropathy, unspecified; K21.9 Gastro-esophageal reflux disease without esophagitis; M19.90 Unspecified osteoarthritis, unspecified site; M79.7 Fibromyalgia; Z79.4 Long term (current) use of insulin; Z82.49 Family history of ischemic heart disease and other diseases of the circulatory system; Z86.73 Personal history of transient ischemic attack (TIA), and cerebral infarction without residual deficits; Z90.710 Acquired absence of both cervix and uterus; Z91.19 Patient's noncompliance with other medical treatment and regimen; Z90.49 Acquired absence of other specified parts of digestive tract; E78.00 Pure hypercholesterolemia, unspecified; Z88.0 Allergy status to penicillin; Z88.2 Allergy status to sulfonamides; Z88.8 Allergy status to other drugs, medicaments and biological substances
CPT/HCPCS: 36415; 71045; 80048; 80053; 81001; 82962; 83605; 85025; 87040; 87086; 87186; 87804; 93005; 93971; 96361; 96374; 96375; J1650; J1815; J1885; J1956; J2405; J7030; 99285-25

== ENCOUNTER → 2018-07-03 | Outpatient (CLI) | payer MEDICARE ==
[2018-06-23 11:00] VITALS: BP 129/69
[~2018-07-03] MED LIST changes: +GLIP10TA13 PO; +[UNRECOGNIZED DRUG - CODE] TP; +[UNRECOGNIZED DRUG - REMARK]
--- NOTE | 2018-07-06 09:09 | RAD ---
Renal ultrasound complete History: FLANK PAIN Sonographic examination of the kidneys was performed and multiple static images were obtained. Right kidney: The right kidney is seen with no hydronephrosis and measures 11.7 cm in length. Left kidney: The left kidney is seen with no hydronephrosis and measures 10.9 cm in length. Urinary bladder: The urinary bladder is collapsed and not well visualized. Impression: No hydronephrosis. Electronically signed by: Octavio Ricketts III, MD (07/06/2018 9:06 AM) [facility]
== END | disposition home or self-care (01) ==
LOC: US 13:36
PROVIDERS: ATTEND Internal Medicine
DX: N32.89 Other specified disorders of bladder (principal)
CPT/HCPCS: 76770

== ENCOUNTER → 2018-08-04 | Outpatient (CLI) | payer MEDICARE ==
--- NOTE | 2018-08-04 12:33 | PAIN ---
DATE OF SERVICE: 08/04/2018 DIAGNOSES: 1. Lumbar radiculopathy with post-lumbar laminectomy syndrome. 2. Cervical radiculopathy with cervical degenerative disk disease. HISTORY OF PRESENT ILLNESS: The patient is a 72-year-old female who returns, last seen in 04/2016. The patient has spinal cord stimulator placed with good results, but she was needing some reprogramming, now it has been a couple of years and still pain in the low back and legs, slightly more on the right than the left. The patient reports it is a 10 on scale of 10 at its worst over the past week, 8 on average and 3 at its least and is a 3 today. The patient reports it is better when she is off her feet. She has been recharging the stimulator with good results, and we had our [place] inside outside sales representative, Roxanna Jeffries, presents today as well to do some reprogramming for the stimulator. The patient reports it does feel better almost immediately. The patient does need a software update on her program also and will have that performed as well. The patient reports no new motor or sensory deficits, still significant pain in low back, bilateral lower extremities and her main complaint is tingling and burning feeling in the feet from peripheral neuropathy. The patient reports the pain is tight in the back, tingling and burning in the feet, cramping in the back and legs, radiating, becoming more constant and severe, sometimes unbearable, worse with walking, standing, better with sitting or lying down, but awakens her from sleep occasionally, not every night. The patient reports no new motor or sensory deficits, no new bowel or bladder incontinence. PHYSICAL EXAMINATION: VITAL SIGNS: The patient's blood pressure 139/76, pulse 77, respirations are 16, temperature 98.1 degrees Fahrenheit, weight is 179 pounds. GENERAL: The patient is awake, alert, oriented, appropriate, very pleasant demeanor. HEENT: Head shows normocephalic, atraumatic. Extraocular movements are intact and symmetrical. Oral cavity: Mucous membranes moist and pink. Dentition is intact. NECK: Shows anterior throat supple without palpable lymphadenopathy noted. Swallow reflex is symmetrical. CHEST: Shows normal with inspection. Breath sounds clear to auscultation bilaterally. HEART: Shows S1, S2 clear. No murmurs auscultated. ABDOMEN: Soft, nontender, nondistended. No palpable organomegaly is noted. No rebound or guarding demonstrated. BACK: Shows spine grossly in the midline. Normal appearing thoracic kyphosis and lumbar lordotic curvature slightly flattened. Lumbar paraspinous musculature shows symmetrical on inspection. On palpation shows some moderate tenderness diffusely bilaterally with well-healed surgical scar noted as well. The patient does show good rotational motion of lumbar spine, both laterally as well as extension and flexion without difficulty. EXTREMITIES: Lower extremities show deep tendon reflexes 1+ in the patellar and tendocalcaneous tendons. Motor exam is approximately 4 on a scale 5, but symmetrical and equal with rotation only minimally painful for the patient. Peripheral pulses are 1+ posterior tibial. No peripheral edema is noted. Options were discussed with the patient. The patient's old chart was reviewed as her current medication regimen updated. Current review of systems updated today as well. We will have a stimulator reprogrammed today with a [employer] inside outside sales representative, also recommend increasing her gabapentin. She will talk with her primary physician regarding this. She is taking 300 mg at 4 p.m. and then at bedtime. The patient reports no significant sedation from the medication, but tingling in the feet is much worse by the next morning and into the next afternoon, and this may help take it on a t.i.d. basis as opposed to only twice a day. We will make those recommendations to increase her gabapentin to 400 mg 3 times daily. The patient will return to clinic at this time on an as needed basis. We will wait for reprogramming to take effect and software updated for her stimulator as well. RHETT HURD MD DR: TAMIE/antonio JOB#: [id number] / [id number]
== END | disposition home or self-care (01) ==
LOC: PNCL 08:51
PROVIDERS: ATTEND Anesthesiology
DX: M50.10 Cervical disc disorder with radiculopathy, unspecified cervical region (principal); M96.1 Postlaminectomy syndrome, not elsewhere classified
CPT/HCPCS: G0463

== ENCOUNTER 2018-08-24 11:45 | Emergency (ER) | payer MEDICARE ==
[~2018-08-24] VITALS: Ht 160 cm; Wt 82.1 kg
[2018-08-24 12:09] VITALS: BP 132/65
[2018-08-24] MEDS ORDERED: HYDROmorphone 2 MG/ML VIAL IM ONE (12:30)
--- NOTE | 2018-08-24 13:21 | PHYS DOC ---
Past Medical History Past Medical History: Angina, Depression, Diabetes-Type II, Fibromyalgia, GERD, High Cholesterol, Hypertension, Stroke Additional Past Medical Histor: neuropathy, RLS, subarachnoid hemorrhage(2002), VERTIGO, EDEMA Past Surgical History: Cholecystectomy, Hysterectomy, Pacemaker Additional Past Surgical Histo: "10 BACK SURGERIES", COLON RESECTION, BREAST REDUCTION Alcohol Use: None Drug Use: None Adult General Chief Complaint Chief Complaint: PAIN CONTROL HPI HPI Patient is a 72 year old f p/w back pain radiates to both thighs simliar to prior breakthrough pain "when I get like this that usually get dilaudid in the ER" has been fighting uti and has intermittent fever from that but is on ceftriaxone for that and followed by primary doctor. no new trauma taking home pain meds with minimal relief radiates both thighs. severe dull and throbbing Review of Systems Review of Systems Constitutional: Eyes: Denies change in visual acuity, redness, or eye pain [] HENT: Denies nasal congestion or sore throat [] Respiratory: Denies cough or shortness of breath [] Cardiovascular: No additional information not addressed in HPI [] GI: Denies abdominal pain, nausea, vomiting, bloody stools or diarrhea [] : neg for incontinence Integument: Denies rash or skin lesions [] Neurologic: Denies headache, focal weakness or sensory changes [] Endocrine: Denies polyuria or polydipsia [] All other systems were reviewed and found to be within normal limits, except as documented in this note. Current Medications Current Medications Current Medications Medications (Trade) Dose Ordered Sig/Marly Start Time Stop Time Status Last Admin Dose Admin Hydromorphone HCl (Dilaudid) 1 mg 1X ONCE 08/24/18 12:30 08/24/18 12:31 DC 08/24/18 12:36 1 MG Allergies Allergies Allergies Coded Allergies Type Severity Reaction Last Updated Verified pramipexole Allergy Severe renal failure 02/13/17 Yes Penicillins Allergy Intermediate hives 05/09/18 Yes Sulfa (Sulfonamide Antibiotics) Allergy Intermediate 02/13/17 Yes clavulanic acid Allergy Intermediate 02/13/17 Yes Physical Exam Physical Exam Constitutional: Well developed, well nourished, no acute distress, non-toxic appearance. [] HENT: Normocephalic, atraumatic, bilateral external ears normal, oropharynx moist, no oral exudates, nose normal. [] Eyes: PERRLA, EOMI, conjunctiva normal, no discharge. [] Neck: Normal range of motion, no tenderness, supple, no stridor. [] Cardiovascular:Heart rate regular rhythm, no murmur [] Lungs & Thorax: Bilateral breath sounds clear to auscultation [] Abdomen: Bowel sounds normal, soft, no tenderness, no masses, no pulsatile masses. [] Skin: Warm, dry, no erythema, no rash. [] Back: ttp throughout b/l low back. Extremities: No tenderness, no cyanosis, no clubbing, ROM intact, no edema. [] Neurologic: Alert and oriented X 3, normal motor function, normal sensory function, no focal deficits noted. [] pulese present. Psychologic: Affect normal, judgement normal, mood normal. [] Current Patient Data Vital Signs Vital Signs Date Time Temp Pulse Resp B/P (MAP) Pulse Ox O2 Delivery O2 Flow Rate FiO2 08/24/18 12:36 16 99 Room Air 08/24/18 12:09 98.6 94 132/65 (87) 98.6 EKG EKG [] Radiology/Procedures Radiology/Procedures [] Course & Med Decision Making Course & Med Decision Making Pertinent Labs and Imaging studies reviewed. (See chart for details) []72 yo f hx of chronic back pain present with flareup of low back pain that seems very similar to her usual complaints no red flags no incontinence neurologically intact exam is somewhat limited by pain. Patient is given a dose of Dilaudid as per her previous visit. I did discuss with her the fact that this is not a plan for long-term pain management we will do this one more time but I recommended that she follow-up with pain management doctor for further evaluation and monitoring of her pain stimulator etc. etc. She is agreeable to this Dragon Disclaimer Dragon Disclaimer This electronic medical record was generated, in whole or in part, using a voice recognition dictation system. Departure Departure Impression: Primary Impression: Back pain Disposition: 01 HOME, SELF-CARE Condition: STABLE Referrals: LO LEDESMA MD (PCP) Patient Instructions: Back Pain, Adult, [id number] MATTIE BRAXTON MD Aug 24, 2018 13:21
== END 2018-08-24 12:40 | disposition home or self-care (01) ==
LOC: ER 11:59
DX: M54.5 Low back pain (principal); E11.9 Type 2 diabetes mellitus without complications; K21.9 Gastro-esophageal reflux disease without esophagitis; E78.00 Pure hypercholesterolemia, unspecified; I10 Essential (primary) hypertension; E11.40 Type 2 diabetes mellitus with diabetic neuropathy, unspecified; G25.81 Restless legs syndrome; Z86.73 Personal history of transient ischemic attack (TIA), and cerebral infarction without residual deficits; Z90.49 Acquired absence of other specified parts of digestive tract; Z90.710 Acquired absence of both cervix and uterus; Z95.0 Presence of cardiac pacemaker; Z98.890 Other specified postprocedural states; Z88.0 Allergy status to penicillin; Z88.2 Allergy status to sulfonamides; Z88.8 Allergy status to other drugs, medicaments and biological substances
CPT/HCPCS: 96372; 99284; J1170

== ENCOUNTER 2018-09-14 07:59 | Emergency (ER) | payer MEDICARE ==
[~2018-09-14] VITALS: Ht 160 cm; Wt 86.2 kg
[~2018-09-14 07:59] MED LIST changes: -PANT40TA5 PO; +PANT40TA77 PO
[2018-09-14] MEDS ORDERED: GABAPENTIN 400 MG CAPSULE. PO STA (08:25)
[2018-09-14] MEDS ORDERED: MORPHINE SULFATE 10 MG/ML VIAL. IM ONE (08:30)
[2018-09-14] MEDS ORDERED: KETOROLAC 60 MG/2 ML VIAL. IM ONE (08:30)
[2018-09-14] MEDS ORDERED: ONDANSETRON ODT 4 MG TAB.RAPDIS. PO ONE (08:30)
--- NOTE | 2018-09-14 08:39 | PHYS DOC ---
Past Medical History Past Medical History: Diabetes-Type II, Fibromyalgia, High Cholesterol, H ypertension Additional Past Medical Histor: neuropathy, RLS, subarachnoid hemorrhage(2003), VERTIGO, EDEMA Past Surgical History: Appendectomy, Cholecystectomy, Hysterectomy Additional Past Surgical Histo: Multiple back surgeries, carpal tunnel, breast reduction Alcohol Use: None Drug Use: None Adult General Chief Complaint Chief Complaint: LOWER EXT PAIN [facility] HPI Patient is a 73 year old female presents for bilateral leg pain, and back pain. Patient is a chronic pain patient who sees Dr. Garber at the pain clinic. The patient has a history of diabetes as well as neuropathy. Also is a history of chronic back pain. States that she's had this pain for years however yesterday the pain got worse. States her pain is 8 out of 10 and describes as dull, achy pain. The patient states that she tried a lidocaine patch around 6 AM this morning, and then tried a 5 mg [place] at around 7 AM this morning. Also is having left-sided lower back pain and states that the pain is worse in her left hip/upper leg. Review of Systems Review of Systems Constitutional: Denies fever or chills [] Eyes: Denies change in visual acuity, redness, or eye pain [] HENT: Denies nasal congestion or sore throat [] Respiratory: Denies cough or shortness of breath [] Cardiovascular: No additional information not addressed in HPI [] GI: Denies abdominal pain, nausea, vomiting, bloody stools or diarrhea [] : Denies dysuria or hematuria [] Musculoskeletal: Reports back pain and L hip pain. Reports bilateral leg pain. Integument: Denies rash or skin lesions [] Neurologic: Denies headache, focal weakness or sensory changes [] Endocrine: Denies polyuria or polydipsia [] Complete systems were reviewed and found to be within normal limits, except as documented in this note. Current Medications Current Medications Current Medications Medications (Trade) Dose Ordered Sig/Marly Start Time Stop Time Status Last Admin Dose Admin Gabapentin (Neurontin) 400 mg 1X STAT 09/14/18 08:25 09/14/18 08:30 DC 09/14/18 08:45 400 MG Ketorolac Tromethamine (Toradol Im) 30 mg 1X ONCE 09/14/18 08:30 09/14/18 08:31 DC 09/14/18 08:46 30 MG Morphine Sulfate (Morphine Sulfate) 10 mg 1X ONCE 09/14/18 08:30 09/14/18 08:31 DC 09/14/18 08:46 10 MG Ondansetron HCl (Zofran Odt) 4 mg 1X ONCE 09/14/18 08:30 09/14/18 08:31 DC 09/14/18 08:45 4 MG Allergies Allergies Allergies Coded Allergies Type Severity Reaction Last Updated Verified pramipexole Allergy Severe renal failure 02/13/17 Yes Penicillins Allergy Intermediate hives 05/09/18 Yes Sulfa (Sulfonamide Antibiotics) Allergy Intermediate 02/13/17 Yes clavulanic acid Allergy Intermediate 02/13/17 Yes Physical Exam Physical Exam Constitutional: Well developed, well nourished, no acute distress, non-toxic appearance. [] HENT: Normocephalic, atraumatic, bilateral external ears normal, oropharynx moist, no oral exudates, nose normal. [] Eyes: PERRLA, EOMI, conjunctiva normal, no discharge. [] Neck: Normal range of motion, no tenderness, supple, no stridor. [] Cardiovascular:Heart rate regular rhythm, no murmur [] Lungs & Thorax: Bilateral breath sounds clear to auscultation [] Abdomen: Bowel sounds normal, soft, no tenderness, no masses, no pulsatile masses. [] Skin: Warm, dry, no erythema, no rash. [] Back: Tenderness to left lower back, no CVA tenderness. [] Extremities: Tenderness to both extremities, no cyanosis, no clubbing, ROM intact, no edema. [] Neurologic: Alert and oriented X 3, GCS of 15. Psychologic: Affect normal, judgement normal, mood normal. [] Current Patient Data Vital Signs Vital Signs Date Time Temp Pulse Resp B/P (MAP) Pulse Ox O2 Delivery O2 Flow Rate FiO2 09/14/18 09:15 75 16 121/57 (78) 97 Nasal Cannula 2.0 09/14/18 08:07 98.2 98.2 Lab Values Laboratory Tests Test 09/14/18 08:57 Urine Collection Type Unknown Urine Color Yellow Urine Clarity Clear Urine pH 5.0 Urine Specific [place] 1.025 Urine Protein Negative mg/dL (NEG-TRACE) Urine Glucose (UA) Negative mg/dL (NEG) Urine Ketones (Stick) Trace mg/dL (NEG) Urine Blood Negative (NEG) Urine Nitrite Negative (NEG) Urine Bilirubin Small (NEG) Urine Urobilinogen Dipstick 1.0 mg/dL (0.2 mg/dL) Urine Leukocyte Esterase Moderate (NEG) Urine RBC 0 /HPF (0-2) Urine WBC 1-4 /HPF (0-4) Urine Squamous Epithelial Cells Few /LPF Urine Bacteria 0 /HPF (0-FEW) EKG EKG [] Radiology/Procedures Radiology/Procedures [] Course & Med Decision Making Course & Med Decision Making Pertinent Labs and Imaging studies reviewed. (See chart for details) The patient is a chronic pain patient who presents to the ER for pain control. The patient has a stimulator in her back, and is on gabapentin 400 mg 3 times a day at home. Has not taken her gabapentin this morning. She has bilateral leg pain that seems to be in line with her normal neuropathic pain. The patient has no history of blood clots and has not had any recent risk factors that would her high risk for blood clots. Patient also has a history of sciatica is having left sided lower back pain that radiates down the left hip. Discussed with patient the options to treat this pain, patient requested Dilaudid. Discussed with patient that do not believe blotted is warranted for the pain that she is currently having. Did offer her a muscle relaxer she states makes her i ncontinent and that she will not take. Patient has already had a [place], and tried lidocaine patches at home. Will with an IM shot of Toradol to try to reduce inflammation in the back (states her kidney function has been adequate), give the morning dose of gabapentin, and given a shot of morphine. Has recently had a UTI that she stopped treatment for 10 days ago after her second round of antibiotics. With the symptoms he is having will check a urinalysis to ensure that the UTI has cleared. Patient is agreeable to this plan of care. Patient received pain relief from medications given and is resting comfortably in the room. Urine shows leukocytes but has no urine bacteria. Will have urine cultured and treat based on that culture as she has already had two rounds of antibiotics. Will d/c home. Patient is agreeable with this plan. Dragon Disclaimer Dragon Disclaimer This electronic medical record was generated, in whole or in part, using a voice recognition dictation system. Departure Departure Impression: Primary Impression: Sciatica of left side Disposition: HOME, SELF-CARE Condition: STABLE Referrals: LO LEDESMA MD (PCP) Patient Instructions: Sciatica Additional Instructions: Thank you for visiting [facility]. We appreciate you trusting us with your care. If any additional problems come up don't hesitate to return to visit us. Please follow up with your primary care provider so they can plan additional care if needed and know about the problem that you had. If symptoms worsen come back to the Emergency Department. Any concerning symptoms that start such as chest pain, shortness of Air, weakness or numbness on one side of the body, running high fevers or any other concerning symptoms return to the ER. Please follow up with Dr. Garber at pain management this week. Also please follow up with your primary care doctor this week about the symptoms. CASSANDRA GALVEZ APRN Sep 14, 2018 08:39
[2018-09-14 09:17] LABS: BILIRUBIN,URINE SMALL (NEG); CLARITY,URINE CLEAR; COLOR,URINE YELLOW; NITRITE,URINE NEGATIVE (NEG); PROTEIN,URINE NEGATIVE (NEG-TRACE)
[2018-09-14 09:29] LABS: BACTERIA,URINE 0 /HPF (0-FEW); RBC,URINE 0 /HPF (0-2); SQUAMOUS EPITHELIAL CELL,UR FEW /LPF
[2018-09-14 09:56] VITALS: BP 113/53
== END 2018-09-14 09:58 | disposition home or self-care (01) ==
LOC: ER 07:59
DX: M54.42 Lumbago with sciatica, left side (principal); E78.00 Pure hypercholesterolemia, unspecified; E11.40 Type 2 diabetes mellitus with diabetic neuropathy, unspecified; I10 Essential (primary) hypertension; Z90.49 Acquired absence of other specified parts of digestive tract; Z90.89 Acquired absence of other organs; Z90.710 Acquired absence of both cervix and uterus; Z88.0 Allergy status to penicillin; Z88.2 Allergy status to sulfonamides; Z88.8 Allergy status to other drugs, medicaments and biological substances
CPT/HCPCS: 81001; 87086; 96372; 99284; J1885; J2270; Q0162

== ENCOUNTER 2018-09-16 15:53 | Emergency (ER) | payer MEDICARE ==
[~2018-09-16] VITALS: Ht 160 cm; Wt 86.2 kg
[2018-09-16 16:15] VITALS: BP 96/53
[2018-09-16] MEDS ORDERED: KETOROLAC 30 MG/ML VIAL. IM ONE (16:15)
[2018-09-16] MEDS ORDERED: MORPHINE SULFATE 10 MG/ML VIAL. IM ONE (16:15)
--- NOTE | 2018-09-16 16:20 | PHYS DOC ---
Past Medical History Past Medical History: Diabetes-Type II, Fibromyalgia, High Cholesterol, H ypertension Additional Past Medical Histor: neuropathy, RLS, subarachnoid hemorrhage(2002), VERTIGO, EDEMA Past Surgical History: Appendectomy, Cholecystectomy, Hysterectomy Additional Past Surgical Histo: Multiple back surgeries, carpal tunnel, breast reduction Alcohol Use: None Drug Use: None Adult General Chief Complaint Chief Complaint: PAIN CONTROL HPI HPI Patient is a 73 year old female presents for bilateral leg pain, and back pain. Patient is a chronic pain patient who sees Dr. Garber at the pain clinic. The patient has a history of diabetes as well as neuropathy. Also is a history of chronic back pain. States that she's had this pain for years however the pain has gotten worse over the last several week. I saw the patient on Saturday and treatment helped her pain for a day. States her pain is 8 out of 10 and descri bes as dull, achy pain. Has been taking medications at home which is not working. Review of Systems Review of Systems Constitutional: Denies fever or chills [] Eyes: Denies change in visual acuity, redness, or eye pain [] HENT: Denies nasal congestion or sore throat [] Respiratory: Denies cough or shortness of breath [] Cardiovascular: No additional information not addressed in HPI [] GI: Denies abdominal pain, nausea, vomiting, bloody stools or diarrhea [] : Denies dysuria or hematuria [] Musculoskeletal: Reports back pain that radiates down bilateral legs but denies joint pain [] Integument: Denies rash or skin lesions [] Neurologic: Denies headache, focal weakness or sensory changes [] Endocrine: Denies polyuria or polydipsia [] Complete systems were reviewed and found to be within normal limits, except as documented in this note. Current Medications Current Medications Current Medications Medications (Trade) Dose Ordered Sig/Marly Start Time Stop Time Status Last Admin Dose Admin Ketorolac Tromethamine (Toradol 30mg Vial) 30 mg 1X ONCE 09/16/18 16:15 09/16/18 16:18 DC 09/16/18 16:29 30 MG Morphine Sulfate (Morphine Sulfate) 10 mg 1X ONCE 09/16/18 16:15 09/16/18 16:18 DC 09/16/18 16:30 10 MG Allergies Allergies Allergies Coded Allergies Type Severity Reaction Last Updated Verified pramipexole Allergy Severe renal failure 11/29/17 Yes Penicillins Allergy Intermediate hives 05/09/18 Yes Sulfa (Sulfonamide Antibiotics) Allergy Intermediate 02/13/17 Yes clavulanic acid Allergy Intermediate 02/13/17 Yes Physical Exam Physical Exam Constitutional: Well developed, well nourished, no acute distress, non-toxic appearance. [] HENT: Normocephalic, atraumatic, bilateral external ears normal, oropharynx moist, no oral exudates, nose normal. [] Eyes: PERRLA, EOMI, conjunctiva normal, no discharge. [] Neck: Normal range of motion, no tenderness, supple, no stridor. [] Cardiovascular:Heart rate regular rhythm, no murmur [] Lungs & Thorax: Bilateral breath sounds clear to auscultation [] Abdomen: Bowel sounds normal, soft, no tenderness, no masses, no pulsatile masses. [] Skin: Warm, dry, no erythema, no rash. [] Back: Tenderness, no CVA tenderness. [] Extremities: No tenderness, no cyanosis, no clubbing, ROM intact, no edema. [] Neurologic: Alert and oriented X 3, normal motor function, normal sensory function, no focal deficits noted. [] Psychologic: Affect normal, judgement normal, mood normal. [] Current Patient Data Vital Signs Vital Signs Date Time Temp Pulse Resp B/P (MAP) Pulse Ox O2 Delivery O2 Flow Rate FiO2 09/16/18 16:30 18 96 Room Air 09/16/18 16:15 98.4 72 96/53 (67) 98.4 EKG EKG [] Radiology/Procedures Radiology/Procedures [] Course & Med Decision Making Course & Med Decision Making Pertinent Labs and Imaging studies reviewed. (See chart for details) I saw this patient on Saturday. Discussed with patient if follow up has been attempted with pcp and pain management. She says that Appointment with [facility] on September 30. Asked patients to call both J[facility] and [facility] to attempt to get in sooner. Will give IM Toradol and Morphine as was done on Saturday for relief. Patient is agreeable. Medication helped patient. Will d/c home. Dragon Disclaimer Dragon Disclaimer This electronic medical record was generated, in whole or in part, using a voice recognition dictation system. Departure Departure Impression: Primary Impression: Chronic pain Disposition: HOME, SELF-CARE Condition: STABLE Referrals: LO LEDESMA MD (PCP) Patient Instructions: Sciatica Additional Instructions: Thank you for visiting [facility]. We appreciate you trusting us with your care. If any additional problems come up don't hesitate to return to visit us. Please follow up with your primary care provider so they can plan additional care if needed and know about the problem that you had. If symptoms worsen come back to the Emergency Department. Any concerning symptoms that start such as chest pain, shortness of Air, weakness or numbness on one side of the body, running high fevers or any other concerning symptoms return to the ER. Please follow up with Dr. Caba or J[facility] this week for further management. CASSANDRA GALVEZ APRN Sep 16, 2018 16:20
== END 2018-09-16 17:00 | disposition home or self-care (01) ==
LOC: ER 15:53
DX: G89.29 Other chronic pain (principal); M79.604 Pain in right leg; M79.605 Pain in left leg; M54.89 Other dorsalgia; E78.00 Pure hypercholesterolemia, unspecified; E11.40 Type 2 diabetes mellitus with diabetic neuropathy, unspecified; I10 Essential (primary) hypertension; G25.81 Restless legs syndrome; Z90.89 Acquired absence of other organs; Z90.49 Acquired absence of other specified parts of digestive tract; Z90.710 Acquired absence of both cervix and uterus; Z98.890 Other specified postprocedural states; Z88.0 Allergy status to penicillin; Z88.2 Allergy status to sulfonamides; Z88.8 Allergy status to other drugs, medicaments and biological substances
CPT/HCPCS: 96372; 99284; J1885; J2270

== ENCOUNTER 2018-10-06 03:51 | Emergency (ER) | payer MEDICARE ==
[~2018-10-06] VITALS: Ht 165.1 cm; Wt 86.2 kg
[2018-10-06 03:54] VITALS: BP 110/61
[2018-10-06] MEDS ORDERED: MORPHINE SULFATE 4 MG/ML VIAL. IM ONE (05:00)
--- NOTE | 2018-10-06 05:27 | PHYS DOC ---
Past Medical History Past Medical History: Diabetes-Type II, Fibromyalgia, High Cholesterol, H ypertension Additional Past Medical Histor: neuropathy, RLS, subarachnoid hemorrhage(2002), VERTIGO, EDEMA Past Surgical History: Appendectomy, Cholecystectomy, Hysterectomy Additional Past Surgical Histo: Multiple back surgeries, carpal tunnel, breast reduction Alcohol Use: None Drug Use: None Adult General Chief Complaint Chief Complaint: LOWER EXT PAIN HPI HPI Patient is a 73 year old female who has a history of chronic pain thank you who is coming in for a pain shot. This is felt her fifth visit in the last month for similar symptoms she has chronic peripheral neuropathy from the top of her thighs down to the bottom of her toes. She has a pain stimulator she thinks it is not working properly she is trying to get back in to pain management for close follow-up. She has been increasing her gabapentin with minimal success. Burning pain throughout nonradiating otherwise Review of Systems Review of Systems Constitutional: Denies fever or chills [] Eyes: Denies change in visual acuity, redness, or eye pain [] HENT: Denies nasal congestion or sore throat [] Respiratory: Denies cough or shortness of breath [] Cardiovascular: No additional information not addressed in HPI [] Neurologic: Denies headache, focal weakness. All other systems were reviewed and found to be within normal limits, except as documented in this note. Current Medications Current Medications Current Medications Medications (Trade) Dose Ordered Sig/Marly Start Time Stop Time Status Last Admin Dose Admin Morphine Sulfate (Morphine Sulfate) 4 mg 1X ONCE 10/06/18 05:00 10/06/18 05:00 DC 10/06/18 04:39 4 MG Allergies Allergies Allergies Coded Allergies Type Severity Reaction Last Updated Verified pramipexole Allergy Severe renal failure 02/13/17 Yes Penicillins Allergy Intermediate hives 05/09/18 Yes Sulfa (Sulfonamide Antibiotics) Allergy Intermediate 02/13/17 Yes clavulanic acid Allergy Intermediate 02/13/17 Yes Physical Exam Physical Exam Constitutional: Well developed, well nourished, no acute distress, non-toxic appearance. [] HENT: Normocephalic, atraumatic, bilateral external ears normal, oropharynx mois t, no oral exudates, nose normal. [] Eyes: PERRLA, EOMI, conjunctiva normal, no discharge. [] Neck: Normal range of motion, no tenderness, supple, no stridor. [] Pulmonary: Normal respiratory effort no increased work of breathing no obvious chest wall trauma Abdomen: Bowel sounds normal, soft, no tenderness, no masses, no pulsatile masses. [] Skin: Warm, dry, no erythema, no rash. [] Back: No tenderness, no CVA tenderness. [] Extremities: No tenderness, no cyanosis, no clubbing, ROM intact, no edema. [] Neurologic: Alert and oriented X 3, normal motor function, DECREASED SENSATION TO LIGHT TOUCH THROUGHOUT B/L LOWER EXTREMITIES Current Patient Data Vital Signs Vital Signs Date Time Temp Pulse Resp B/P (MAP) Pulse Ox O2 Delivery O2 Flow Rate FiO2 10/06/18 03:54 97.9 84 18 110/61 (77) 97 Room Air 97.9 EKG EKG [] Radiology/Procedures Radiology/Procedures [] Course & Med Decision Making Course & Med Decision Making Pertinent Labs and Imaging studies reviewed. (See chart for details) []73-year-old female chronic pain here because she would like another pain injection. I did advise her that she has been to this emergency room quite frequently over the last month I did talk to her in detail about the altered pa in sensorium that results from frequent intramuscular narcotic injections. Because she is here at 4 in the morning I did tell her we would give her one more dose but that I can almost guarantee that her pain will be worse long-term AND this is really not a great solution. I strongly recommended that she not come back to the emergency room for treatment of her chronic pain with intr amuscular injection she cannot come 4 times a month indefinitely and she does understand that she will call her pain doctor as soon as possible to try to get her pain stimulator function optimized and have alternative modalities investigated. Dragon Disclaimer Dragon Disclaimer This electronic medical record was generated, in whole or in part, using a voice recognition dictation system. Departure Departure Impression: Primary Impression: Chronic pain Disposition: 01 HOME, SELF-CARE Condition: STABLE Patient Instructions: Chronic Pain MATTIE BRAXTON MD Oct 06, 2018 05:27
== END 2018-10-06 04:42 | disposition home or self-care (01) ==
LOC: ER 03:51
DX: G89.29 Other chronic pain (principal); M79.604 Pain in right leg; M79.605 Pain in left leg; E11.40 Type 2 diabetes mellitus with diabetic neuropathy, unspecified; E78.00 Pure hypercholesterolemia, unspecified; I10 Essential (primary) hypertension; Z90.89 Acquired absence of other organs; Z90.49 Acquired absence of other specified parts of digestive tract; Z90.710 Acquired absence of both cervix and uterus; G25.81 Restless legs syndrome; Z88.0 Allergy status to penicillin; Z88.2 Allergy status to sulfonamides; Z88.8 Allergy status to other drugs, medicaments and biological substances
CPT/HCPCS: 96372; 99283; J2270

== ENCOUNTER → 2018-10-17 | Outpatient (CLI) | payer MEDICARE ==
[2018-10-06 03:54] VITALS: BP 110/61
[~2018-10-17] MED LIST changes: -DULO60CA44 PO; +DULO60CA45 PO; +SITA50TA PO; -TIZA4TAB PO; +TIZA4TAB2 PO
--- NOTE | 2018-10-17 19:16 | PAIN ---
DATE OF SERVICE: 10/17/2018 PROGRESS NOTE FOR PAIN CLINIC DIAGNOSES: 1. Lumbar radiculopathy with lumbar post-laminectomy syndrome. 2. Cervical radiculopathy with cervical degenerative disk disease. HISTORY OF PRESENT ILLNESS: The patient is a 73-year-old female who returns for followup status post spinal cord stimulator management. She has a paddle lead that was put in 2016. The patient is having difficulty she reports getting hold of her [employer] assistance representative to manage the stimulator and we will supply her with different name and actually will call the rep ourselves today to get some followup for the patient. The patient reports still some significant pain in the mid back, upper back, low back, bilateral lower extremities, also in the joints, elbows, wrists, arms, shoulders, knees, and feet. The patient reports it is worse with walking, standing, changing positions, awakens her from sleep occasionally but not every night. The patient describes the pain as aching, sharp, shooting, tingling, burning, radiating, constant, severe, unbearable at times, rated as a 10 on a scale of 10 at its worst, 9 on average, 7 at its least and is a 9 today. The patient reports she is not taking anything for the arthritis except for Advil [id number], which does help by about 40-50%. The patient reports she has increased her gabapentin, but has not seen much improvement with that as well. The patient reports no new motor or sensory deficits, no new changes. PHYSICAL EXAMINATION: VITAL SIGNS: The patient's blood pressure 135/78, pulse 93, respirations 16, temperature 98.9 degrees Fahrenheit, weight is 190 pounds. GENERAL: The patient is awake, alert, oriented, appropriate, very pleasant demeanor. HEENT: Shows normocephalic, atraumatic. Extraocular movements are intact and symmetrical. Oral cavity: Mucous membranes are moist and pink. Dentition is intact. NECK: Shows anterior throat supple without palpable lymphadenopathy noted. Swallow reflex symmetrical. CHEST: Shows normal on inspection. Breath sounds clear to auscultation bilaterally. HEART: Shows S1, S2 clear. No murmurs auscultated. ABDOMEN: Soft, nontender, nondistended. No palpable organomegaly is noted. No rebound or guarding demonstrated. BACK: Shows spine grossly in the midline. Normal-appearing thoracic kyphosis, some minor flattening of lumbar lordotic curvature. Well-healed surgical scarring is noted throughout the middle thoracic and lumbar distributions. Lumbar paraspinous muscle shows symmetrical on inspection and palpation shows some moderate tenderness diffusely bilaterally, but only diffusely without radiation. EXTREMITIES: Lower extremities show deep tendon reflexes 1+ in the patellar and tendo-calcaneus tendons. Motor exam is approximately 4 on a scale of 5, but equal and symmetrical bilaterally. PLAN: Options were discussed with the patient. The patient's old chart was reviewed as his current medication regimen updated. Current review of systems updated today as well. We will proceed with trialing meloxicam at 15 mg daily for arthritic pains. Also, we will add Sprix nasal spray for breakthrough pain. The patient will have rep from [employer] for spinal cord stimulator evaluation scheduled soon for reprogramming as well. The patient will follow up in approximately 1 month as scheduled. RHETT HURD MD DR: TAMIE/antonio JOB#: [id number] / [id number]
== END | disposition home or self-care (01) ==
LOC: PNCL 10:00
PROVIDERS: ATTEND Anesthesiology
DX: M54.16 Radiculopathy, lumbar region (principal); M54.12 Radiculopathy, cervical region; M96.1 Postlaminectomy syndrome, not elsewhere classified; Z79.891 Long term (current) use of opiate analgesic
CPT/HCPCS: G0463

== ENCOUNTER → 2018-12-15 | Outpatient (CLI) | payer MEDICARE ==
[2018-12-02 12:00] VITALS: BP 166/65
[~2018-12-15] MED LIST changes: -CLON1TAB11 PO; +CLONAZEPAM1 MG PO; +DICL100G18 TP; +LOPE-101 PO; -LOPE2CAP88 PO
--- NOTE | 2018-12-15 16:45 | KCIC ---
EXAM: Head CT without contrast. HISTORY: Subdural hematoma follow-up. TECHNIQUE: Computed tomographic images of the head were obtained without contrast. *One or more of the following individualized dose reduction techniques were utilized for this examination: 1. Automated exposure control. 2. Adjustment of the mA and/or kV according to patient size. 3. Use of iterative reconstruction technique. COMPARISON: 12/01/2018. FINDINGS: There has been slight interval decrease in the size of a subacute anterior parafalcine subdural hematoma measuring 3 mm in maximum thickness. No new hemorrhage is seen. There is no mass effect or midline shift. There is no hydrocephalus. There are areas of decreased attenuation within the cerebral white matter, nonspecific and likely related to chronic small vessel disease. There is cerebral volume loss with compensatory enlargement of the ventricles and bifrontal extra-axial space. There is encephalomalacia likely due to chronic infarcts within the right parietal lobe. There is a small amount of fluid within the right mastoid air cells. There is evidence of lens surgery. No suspicious calvarial lesion is seen. IMPRESSION: 1. Slight interval decrease in the size of a small subacute anterior parafalcine subdural hematoma. 2. 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 3. Suspected white matter changes due to chronic small vessel disease. 4. Mild cerebral volume loss. Electronically signed by: Donna Grossman MD (12/15/2018 4:42 PM) [place] [id number]
== END | disposition home or self-care (01) ==
LOC: KCIC CT 14:17
PROVIDERS: ATTEND Neurological Surgery
DX: I62.00 Nontraumatic subdural hemorrhage, unspecified (principal); I73.89 Other specified peripheral vascular diseases; I63.89 Other cerebral infarction; G93.89 Other specified disorders of brain
CPT/HCPCS: 70450

== ENCOUNTER 2018-12-18 20:30 | Emergency (ER) | payer MEDICARE ==
[~2018-12-18] VITALS: Ht 172.7 cm; Wt 85.3 kg
[~2018-12-18 20:30] MED LIST changes: -DICL100G18 TP; -DILT120C85 PO; +DILT120C99 PO
[2018-12-18 20:40] VITALS: BP 140/62
[2018-12-18] MEDS ORDERED: HYDROcodone/APAP 5/325MG 1 TAB TABLET PO ONE (21:00)
[2018-12-18] MEDS ORDERED: DICL100G18 TP (22:10)
--- NOTE | 2018-12-18 22:10 | PHYS DOC ---
Past Medical History Past Medical History: Diabetes-Type II, Fibromyalgia, High Cholesterol, H ypertension Additional Past Medical Histor: neuropathy, RLS, subarachnoid hemorrhage(2002), VERTIGO, EDEMA (MANUEL ADAMES APRN) Past Surgical History: Appendectomy, Cholecystectomy, Hysterectomy, Pacemaker Additional Past Surgical Histo: Multiple back surgeries, carpal tunnel, breast reduction, pain stimulator (MANUEL ADAMES APRN) Alcohol Use: None Drug Use: None (MANUEL ADAMES APRN) Attending Signature I have participated in the care of this patient and I have reviewed and agree with all pertinent clinical information above including history, exam, and recommendations. (LENO WINTER MD) Adult General Chief Complaint Chief Complaint: LOWER EXT PAIN HPI HPI Patient is a 73 year old female with history of diabetes type 2, hypertension, high cholesterol, fibromyalgia, who presents to the ED today complaining of 6 out of 10 right medial knee pain that has been going on for 1-1/2 weeks. Patient states she has been following up with her own PCP who recommended steroid injections in the knee but she has refused. She states she is currently on hydrocodone with minimal relief. Denies any trauma she states the pain is worse on weight bearing. (MANUEL ADAMES APRN) Review of Systems Review of Systems Constitutional: Denies fever or chills [] Musculoskeletal: Denies back pain or joint pain [] Integument: Denies rash or skin lesions [] Neurologic: Denies headache, focal weakness or sensory changes [] All other systems were reviewed and found to be within normal limits, except as documented in this note. (MANUEL ADAMES APRN) Current Medications Current Medications Current Medications Medications (Trade) Dose Ordered Sig/Marly Start Time Stop Time Status Last Admin Dose Admin Acetaminophen/ Hydrocodone Bitart (Lortab 5/325) 2 tab 1X ONCE 12/18/18 21:00 12/18/18 21:01 DC 12/18/18 21:06 2 TAB (LENO WINTER MD) Allergies Allergies Allergies Coded Allergies Type Severity Reaction Last Updated Verified pramipexole Allergy Severe renal failure 02/13/17 Yes Penicillins Allergy Intermediate hives 05/09/18 Yes Sulfa (Sulfonamide Antibiotics) Allergy Intermediate 02/13/17 Yes clavulanic acid Allergy Intermediate 02/13/17 Yes I S O L A T I O N *CONTACT* Allergy Unknown 12/02/18 Yes (LENO WINTER MD) Physical Exam Physical Exam Constitutional: Well developed, well nourished, no acute distress, non-toxic appearance. [] Skin: Warm, dry, no erythema, no rash. [] Back: No tenderness, no CVA tenderness. [] Extremities: Right knee with no obvious edema, no ecchymosis, soft tissue swel ling or tenderness on palpation of the medial and lateral knee. Limited range of motion to the right knee. +2 right knee pedal pulse. Cap refill less than 2 seconds the right lower extremity. Neurologic: Alert and oriented X 3, normal motor function, normal sensory function, no focal deficits noted. [] Psychologic: Affect normal, judgement normal, mood normal. [] (MANUEL ADAMES APRN) Current Patient Data Vital Signs Vital Signs Date Time Temp Pulse Resp B/P (MAP) Pulse Ox O2 Delivery O2 Flow Rate FiO2 12/18/18 21:06 16 98 12/18/18 20:40 98.0 92 140/62 (88) Room Air 98.0 (LENO WINTER MD) EKG EKG [] (MANUEL ADAMES APRN) Radiology/Procedures Radiology/Procedures [] (MANUEL ADAMES APRN) Course & Med Decision Making Course & Med Decision Making Pertinent Labs and Imaging studies reviewed. (See chart for details) This is a 73-year-old female patient who presents to the ED today with right knee pain that began one and a half weeks ago. Right knee x-rays are negative for any acute findings. Patient has been following up with her PCP for this knee pain. I recommended she continue following up. She already has hydrocodone at home given rx of Voltaren. Encouraged her to continue taking it. (MANUEL ADAMES APRN) Dragon Disclaimer Dragon Disclaimer This electronic medical record was generated, in whole or in part, using a voice recognition dictation system. (MANUEL ADAMES APRN) Departure Departure Impression: Primary Impression: Right knee pain Disposition: HOME, SELF-CARE Condition: STABLE Referrals: LO LEDESMA MD (PCP) LATASHA BRIZUELA II, MD follow up in one week Patient Instructions: Knee Pain, [id number] Additional Instructions: You were seen for knee pain, we highly recommend you continue to take hydrocodone at home as needed. Try to ice and elevate the extremity. Follow-up with your doctor or the provided orthopedic doctor in the next 7 days. Scripts Diclofenac Sodium (VOLTAREN) 100 Gm Gel..gram. 1 GM TP QID, #100 GM 2 Refills Prov: MANUEL ADAMES JAUN 12/18/18 Problem Qualifiers Primary Impression: Right knee pain Chronicity: acute Qualified Codes: M25.561 - Pain in right knee STEPHMANUEL GRIMES JAUN Dec 18, 2018 22:10 LENO WINTER MD Dec 19, 2018 04:04
--- NOTE | 2018-12-18 23:57 | RAD ---
EXAM: Right knee, 3 views HISTORY: Right knee pain. COMPARISON: None. FINDINGS: No fractures are identified. Joint spaces are maintained. Alignment is normal. There are projectional limitations from rotation. There is no clear joint effusion. Atherosclerotic calcifications are noted. Subcutaneous edema is noted. IMPRESSION: 1. No fracture or clear degenerative change for patient age. Electronically signed by: Rhys Hawley MD (12/18/2018 11:54 PM) [facility]
== END 2018-12-18 22:20 | disposition home or self-care (01) ==
LOC: ER 20:30
DX: M25.561 Pain in right knee (principal); E78.00 Pure hypercholesterolemia, unspecified; E11.40 Type 2 diabetes mellitus with diabetic neuropathy, unspecified; I10 Essential (primary) hypertension; Z95.0 Presence of cardiac pacemaker; Z98.51 Tubal ligation status; Z90.710 Acquired absence of both cervix and uterus; Z90.89 Acquired absence of other organs; Z88.0 Allergy status to penicillin; Z88.2 Allergy status to sulfonamides; Z91.041 Radiographic dye allergy status; Z88.8 Allergy status to other drugs, medicaments and biological substances
CPT/HCPCS: 73562; 99284

== ENCOUNTER → 2018-12-23 | Outpatient (CLI) | payer MEDICARE ==
[2018-12-18 20:40] VITALS: BP 140/62
[~2018-12-23] MED LIST changes: +DICL100G18 TP
--- NOTE | 2018-12-23 12:24 | RAD ---
EXAM: Bilateral lower extremity venous Doppler sonogram. HISTORY: Pain and swelling. TECHNIQUE: Howell scale and color Doppler sonographic evaluation of the bilateral lower extremity veins with spectral waveform analysis was performed. FINDINGS: There is normal color flow, normal compressibility and there are normal spectral waveforms in the common femoral, superficial femoral, popliteal, posterior tibial and greater saphenous veins. IMPRESSION: No Doppler evidence of lower extremity deep venous thrombosis. Electronically signed by: Donna Grossman MD (12/23/2018 12:22 PM) [place] [id number]
== END | disposition home or self-care (01) ==
LOC: US 10:31
PROVIDERS: ATTEND Internal Medicine
DX: M79.605 Pain in left leg (principal); M79.604 Pain in right leg; M79.89 Other specified soft tissue disorders; R79.1 Abnormal coagulation profile
CPT/HCPCS: 93970

== ENCOUNTER → 2018-12-25 | Day surgery (SDC) | payer MEDICARE ==
[~2018-12-25] MED LIST changes: +IV RINGERS,LACTATED 1000ML 1,000 ML IV ONE; +LIDOCAINE 2% PF 5 ML VIAL. ONE; +PROPOFOL 20 ML IV ONE
[2018-12-25 13:09] VITALS: BP 140/69
--- NOTE | 2018-12-26 14:07 | PATHOLOGY ---
[facility] Accession Number: [id number] . 01 Material submitted: . colon - RANDOM COLON BIOPSY . 01 Clinical history: . Diarrhea, rectal bleed . 02 Diagnosis: Colonic mucosa, random colon biopsies: - No significant pathologic abnormalities. (JPM:[facility] 12/26/2018) [facility] 12/26/2018 0924 Local . 02 Comment: Sections of the random colon biopsy reveal multiple segments of colonic mucosa containing multiple scattered, small, focally hyperplastic mucosal-associated lymphoid aggregates. There is no evidence of a chronic destructive colitis, lymphocytic colitis, collagenous colitis, or acute infectious colitis. There is no evidence of ischemic colitis. (JPM:pit;12/26/2018) . 02 Electronically signed: . Hayden Boyd MD, Pathologist NPI- [id number] . 01 Gross description: . Received in formalin labeled "Deborahinger, Hannah, random colon BX," are multiple segments of taylor soft tissue measuring 2.0 x 1.0 x 0.1 cm in aggregate dimensions. The specimen is filtered and entirely submitted in cassette A1. (TSD; 12/25/2018) TOB/TOB 12/25/20181950 Local . 02 Pathologist provided ICD-10: R19.7 . 02 CPT . 035595 Specimen Comment: A courtesy copy of this report has been sent to Specimen Comment: [phone], . Specimen Comment: Report sent to / DR LEDESMA Specimen Comment: A duplicate report has been generated due to demographic updates. Performed at: [address], [place], [place] [id number] MD Armando Burleson MD Phone: [phone] Performed at: 02 [facility] [address] [place], [place] [id number] MD Hayden Boyd MD Phone: [phone]
== END ==
LOC: ENDOS 11:43
PROVIDERS: ATTEND Internal Medicine Gastroenterology
DX: K92.1 Melena (principal); K57.30 Diverticulosis of large intestine without perforation or abscess without bleeding; K64.0 First degree hemorrhoids; K52.9 Noninfective gastroenteritis and colitis, unspecified; K29.50 Unspecified chronic gastritis without bleeding; E11.9 Type 2 diabetes mellitus without complications; I25.2 Old myocardial infarction; K21.0 Gastro-esophageal reflux disease with esophagitis; D64.9 Anemia, unspecified; F32.9 Major depressive disorder, single episode, unspecified; F41.9 Anxiety disorder, unspecified; I10 Essential (primary) hypertension; K44.9 Diaphragmatic hernia without obstruction or gangrene; F15.90 Other stimulant use, unspecified, uncomplicated; Z88.3 Allergy status to other anti-infective agents; Z88.1 Allergy status to other antibiotic agents; Z88.0 Allergy status to penicillin; Z86.73 Personal history of transient ischemic attack (TIA), and cerebral infarction without residual deficits; Z72.89 Other problems related to lifestyle; Z79.84 Long term (current) use of oral hypoglycemic drugs; Z98.51 Tubal ligation status; Z90.49 Acquired absence of other specified parts of digestive tract; Z95.0 Presence of cardiac pacemaker; Z90.710 Acquired absence of both cervix and uterus
CPT/HCPCS: 45380; J2001; J2704

== ENCOUNTER → 2019-01-19 | Outpatient (CLI) | payer MEDICARE ==
[2018-12-25 13:09] VITALS: BP 140/69
[~2019-01-19] MED LIST changes: -IV RINGERS,LACTATED 1000ML 1,000 ML IV ONE; -LIDOCAINE 2% PF 5 ML VIAL. ONE; -PROPOFOL 20 ML IV ONE
--- NOTE | 2019-01-19 14:31 | KCIC ---
EXAM: CT HEAD WITHOUT CONTRAST. HISTORY: Subdural hematoma, fall. TECHNIQUE: Computed tomography of the head was performed without intravenous contrast. One or more of the following individualized dose reduction techniques were utilized for this examination: 1. Automated exposure control. 2. Adjustment of the mA and/or kV according to patient size. 3. Use of iterative reconstruction technique. COMPARISON: 12/15/2018. FINDINGS: The previously noted falcine subdural hematoma is no longer detectable. Hypoattenuation within the periventricular white matter indicates mild chronic microangiopathic change. Prominence of the lateral ventricles and hemispheric sulci indicates moderate atrophy. The visualized paranasal sinuses appear clear. There are changes of bilateral cataract surgery. The temporal bones are unremarkable. The calvarium reveals no suspicious lesions. A midline frontal osteoma measures 2.4 x 1.2 cm. IMPRESSION: 1. Resolution of the falcine subdural hematoma. 2. Moderate atrophy and mild chronic microangiopathic white matter change. Electronically signed by: Rhys Hawley MD (01/19/2019 2:28 PM) [facility]
== END | disposition home or self-care (01) ==
LOC: KCIC CT 13:21
PROVIDERS: ATTEND Neurological Surgery
DX: R90.82 White matter disease, unspecified (principal); G31.9 Degenerative disease of nervous system, unspecified
CPT/HCPCS: 70450

== ENCOUNTER 2019-07-03 11:30 | Emergency (ER) | payer MEDICARE ==
[~2019-07-03] VITALS: Ht 160 cm; Wt 91.8 kg
[~2019-07-03 11:30] MED LIST changes: -BUPR300T4 PO; +BUPR300T92 PO; -MECL12.52 PO; +MECL12.573 PO; -POTA10TA12 PO; +POTASSIUM CHLO10 ME1 PO; -ROPI0.5T2 PO; +ROPI0.5T4 PO
--- NOTE | 2019-07-03 12:15 | PHYS DOC ---
Past Medical History Past Medical History: Diabetes-Type II, Fibromyalgia, High Cholesterol, H ypertension, MRSA, Other Additional Past Medical Histor: neuropathy,RLS,subarachnoid hemorrhage(2002),VERTIGO,EDEMA,CHRONIC BACK RADHA Past Surgical History: Appendectomy, Cholecystectomy, Hysterectomy, Pacemaker, Other Additional Past Surgical Histo: Multiple back surgeries, carpal tunnel, breast reduction, pain stimulator Smoking Status: Never Smoker Alcohol Use: None Drug Use: None General Adult EDM: Chief Complaint: LOWER EXTREMITY SWELLING HPI: HPI: Patient is a 73 year old female who presented to ER today for evaluation of right lower extremity pain and swelling that been going on for a week. Patient denies any chest pain, no trouble breathing, no cough or fever. Patient denies any injury. Patient said her oxygen saturation always in the 90%. Patient denies history of COPD. Patient says she is not on any oxygen at home. Review of Systems: Review of Systems: Constitutional: Denies fever or chills. [] Eyes: Denies change in visual acuity. [] HENT: Denies nasal congestion or sore throat. [] Respiratory: Denies cough or shortness of breath. [] Cardiovascular: Denies chest pain or edema. [] GI: Denies abdominal pain, nausea, vomiting, bloody stools or diarrhea. [] : Denies dysuria. [] Musculoskeletal: Denies back pain or joint pain. Positive for right leg swelling and pain with redness. Integument: Denies rash. [] Neurologic: Denies headache, focal weakness or sensory changes. [] Endocrine: Denies polyuria or polydipsia. [] Lymphatic: Denies swollen glands. [] Psychiatric: Denies depression or anxiety. [] Heart Score: Risk Factors: Risk Factors: DM, Current or recent (<one month) smoker, HTN, HLP, family history of CAD, obesity. Risk Scores: Score 0 - 3: 2.5% MACE over next 6 weeks - Discharge Home Score 4 - 6: 20.3% MACE over next 6 weeks - Admit for Clinical Observation Score 7 - 10: 72.7% MACE over next 6 weeks - Early Invasive Strategies Allergies: Allergies: Allergies Coded Allergies Type Severity Reaction Last Updated Verified Penicillins Allergy Intermediate hives 12/25/18 Yes Sulfa (Sulfonamide Antibiotics) Allergy Intermediate 12/25/18 Yes clavulanic acid Allergy Intermediate 12/25/18 Yes I S O L A T I O N *CONTACT* Allergy Unknown 12/25/18 Yes Physical Exam: PE: Constitutional: Well developed, well nourished, no acute distress, non-toxic appearance. [] HENT: Normocephalic, atraumatic, bilateral external ears normal, oropharynx moist, no oral exudates, nose normal. [] Eyes: PERRLA, EOMI, conjunctiva normal, no discharge. [] Neck: Normal range of motion, no tenderness, supple, no stridor. [] Cardiovascular:Heart rate regular rhythm, no murmur [] Lungs & Thorax: Bilateral breath sounds clear to auscultation [] Abdomen: Bowel sounds normal, soft, no tenderness, no masses, no pulsatile masses. [] Skin: Warm, dry, no erythema, no rash. [] Back: No tenderness, no CVA tenderness. [] Extremities: no cyanosis, no clubbing, ROM intact, Right leg pitting edema with erythema, tender to palpation. Neurologic: Alert and oriented X 3, normal motor function, normal sensory function, no focal deficits noted. [] Psychologic: Affect normal, judgement normal, mood normal. [] Current Patient Data: Vital Signs: Vital Signs Date Time Temp Pulse Resp B/P (MAP) Pulse Ox O2 Delivery O2 Flow Rate FiO2 07/03/19 11:33 98.4 95 16 135/59 (84) 93 Room Air 98.4 EKG: EKG: [] Radiology/Procedures: Radiology/Procedures: [][facility] [address] [place] [address] IMAGING REPORT Signed PATIENT: GIORGIO LOVECOUNT: [id number] : 1945 LOCATION: ER AGE: 73 SEX: F EXAM STATUS: PRE ER ORD. PHYSICIAN: JARROD MONTERROSO DO REASON: RIGHT LEG PAIN,SWELLING, REDNESS FOR A WEEK PROCEDURE: VENOUS LOWER EXTREMITY RIGHT Right lower extremity venous doppler ultrasound History: Right leg pain and swelling, redness for a week Comparison: Negative exam December 23, 2018 Findings: Multiple grayscale, color, and duplex spectral analysis sonographic images were acquired of the right lower extremity veins to evaluate for the presence of DVT. There is normal phasicity. Normal compression, color-flow, and augmentation is demonstrated from the right common femoral to the popliteal veins. There is normal color flow of the proximal greater saphenous and profunda femoris veins. There is normal color flow of segments of the calf veins. Impression: 1. There is no evidence of deep venous thrombosis from the right common femoral to the popliteal veins. Electronically signed by: Torin Lewis MD (07/03/2019 12:45 PM) [id number] DICTATED and SIGNED BY: TORIN LEWIS MD DATE: 07/03/19 1245 Course & Med Decision Making: Course & Med Decision Making Pertinent Labs and Imaging studies reviewed. (See chart for details) Patient is a 73-year-old female who was evaluated in the ER due to right lower extremity pain and swelling, work-up included ultrasound and lab did not show DVT. Patient has cellulitis. Patient will be discharged home with clindamycin. Patient will need to follow-up with her family doctor for further evaluation and treatment. Dragon Disclaimer: Dragon Disclaimer: This electronic medical record was generated, in whole or in part, using a voice recognition dictation system. Departure Departure Impression: Primary Impression: Cellulitis of right lower leg Disposition: 01 HOME, SELF-CARE Condition: STABLE Referrals: LO LEDESMA MD (PCP) PLEASE FOLLOW UP WITH YOUR DOCTOR NEXT WEEK FOR REEVALUATION. Patient Instructions: Cellulitis Additional Instructions: Thank you for visiting our Emergency Department. We appreciate you trusting us with your care. If any additional problems come up don't hesitate to return to visit us. Please follow up with your primary care provider so they can plan additional care if needed and know about the problem that you had. If symptoms worsen come back to the Emergency Department. Any concerning symptoms that start such as chest pain, shortness of air, weakness or numbness on one side of the body, running high fevers or any other concerning symptoms return to the ER. Scripts Clindamycin Hcl (CLINDAMYCIN HCL) 150 Mg Capsule 300 MG PO QID for 7 Days, #56 CAP Prov: JARROD MONTERROSO DO 07/03/19 JARROD MONTERROSO DO Jul 03, 2019 12:15
[2019-07-03 12:19] LABS: BASO % 0 % (0-3); EOS # 0.3 x10^3/uL (0.0-0.7); EOS % 3 % (0-3); HEMATOCRIT 36.7 % (36.0-47.0); HEMOGLOBIN 12.1 g/dL (12.0-15.5); LYMPH # 2.9 x10^3/uL (1.0-4.8); LYMPH % 35 % (24-48); MEAN CORPUSCULAR HEMOGLOBIN 26 pg (25-35); MEAN CORPUSCULAR HGB CONC 33 g/dL (31-37); MEAN CORPUSCULAR VOLUME 79 fL (79-100); MONO # 0.7 x10^3/uL (0.0-1.1); MONO % 9 % (0-9); NEUT # 4.3 x10^3/uL (1.8-7.7); NEUT % 53 % (31-73); PLATELET COUNT 290 x10^3/uL (140-400); RED BLOOD COUNT 4.66 x10^6/uL (3.50-5.40); RED CELL DISTRIBUTION WIDTH 14.9 % (11.5-14.5); WHITE BLOOD COUNT 8.1 x10^3/uL (4.0-11.0)
[2019-07-03 12:36] LABS: CALCIUM 9.4 mg/dL (8.5-10.1); GFR 54.7; POTASSIUM 3.6 mmol/L (3.5-5.1)
[2019-07-03 12:42] LABS: ALBUMIN 3.6 g/dL (3.4-5.0); ALBUMIN/GLOBULIN RATIO 0.9 (1.0-1.7); TOTAL BILIRUBIN 0.4 mg/dL (0.2-1.0); TOTAL PROTEIN 7.7 g/dL (6.4-8.2)
--- NOTE | 2019-07-03 12:47 | RAD ---
Right lower extremity venous doppler ultrasound History: Right leg pain and swelling, redness for a week Comparison: Negative exam December 23, 2018 Findings: Multiple grayscale, color, and duplex spectral analysis sonographic images were acquired of the right lower extremity veins to evaluate for the presence of DVT. There is normal phasicity. Normal compression, color-flow, and augmentation is demonstrated from the right common femoral to the popliteal veins. There is normal color flow of the proximal greater saphenous and profunda femoris veins. There is normal color flow of segments of the calf veins. Impression: 1. There is no evidence of deep venous thrombosis from the right common femoral to the popliteal veins. Electronically signed by: Johnie Collier MD (07/03/2019 12:45 PM) [id number]
[2019-07-03] MEDS ORDERED: CLINDAMYCIN 900MG PREMIX 50 ML IV ONE (13:30)
[2019-07-03] MEDS ORDERED: CLIN150C14 PO (14:16)
[2019-07-03 14:41] VITALS: BP 119/65
== END 2019-07-03 14:56 | disposition home or self-care (01) ==
LOC: ER 11:30
DX: L03.115 Cellulitis of right lower limb (principal); E11.40 Type 2 diabetes mellitus with diabetic neuropathy, unspecified; E78.00 Pure hypercholesterolemia, unspecified; I10 Essential (primary) hypertension; G89.29 Other chronic pain; G25.81 Restless legs syndrome; Z95.0 Presence of cardiac pacemaker; Z90.49 Acquired absence of other specified parts of digestive tract; Z90.89 Acquired absence of other organs; Z90.710 Acquired absence of both cervix and uterus; Z86.14 Personal history of Methicillin resistant Staphylococcus aureus infection; Z88.0 Allergy status to penicillin; Z88.2 Allergy status to sulfonamides; Z91.041 Radiographic dye allergy status; Z88.8 Allergy status to other drugs, medicaments and biological substances
CPT/HCPCS: 36415; 80053; 83880; 85025; 85610; 85651; 85730; 93971; 96365; 99285; J3490

== ENCOUNTER 2019-10-05 02:55 | Emergency (ER) | payer MEDICARE ==
[~2019-10-05] VITALS: Ht 160 cm; Wt 81.0 kg
[~2019-10-05 02:55] MED LIST changes: +CLIN150C14 PO; -DICL100G18 TP; +DICL100G54 TP
--- NOTE | 2019-10-05 03:37 | PHYS DOC ---
Past Medical History Past Medical History: Diabetes-Type II, Fibromyalgia, High Cholesterol, H ypertension, MRSA, Other Additional Past Medical Histor: neuropathy,RLS,subarachnoid hemorrhage(2002),VERTIGO,EDEMA,CHRONIC BACK RADHA Past Surgical History: Appendectomy, Cholecystectomy, Hysterectomy, Pacemaker, Other Additional Past Surgical Histo: Multiple back surgeries, carpal tunnel, breast reduction, pain stimulator Smoking Status: Never Smoker Alcohol Use: None Drug Use: None General Adult EDM: Chief Complaint: LOWER EXT PAIN HPI: HPI: Patient is a 74 year old female who presents with left knee pain. Patient has had pain in that knee for months. Patient saw her primary care doctor 2 days ago and had a cortisone injection. Pain is worse tonight. Patient denies any fever or warmth or increased swelling to the left knee. Patient's pain is nonradiating and severe and worse with movement. Patient took a 5 mg hydrocodone at approximately 10:00 and has not had relief. Review of Systems: Review of Systems: Constitutional: Denies fever or chills. [] Eyes: Denies change in visual acuity. [] HENT: Denies nasal congestion or sore throat. [] Respiratory: Denies cough or shortness of breath. [] Cardiovascular: Denies chest pain or edema. [] GI: Denies abdominal pain, nausea, vomiting, bloody stools or diarrhea. [] : Denies dysuria. [] Musculoskeletal: Patient complains of chronic back pain and the left knee pain Integument: Denies rash. [] Neurologic: Denies headache, focal weakness or sensory changes. [] Endocrine: Denies polyuria or polydipsia. [] Lymphatic: Denies swollen glands. [] Psychiatric: Denies depression or anxiety. [] Heart Score: Risk Factors: Risk Factors: DM, Current or recent (<one month) smoker, HTN, HLP, family history of CAD, obesity. Risk Scores: Score 0 - 3: 2.5% MACE over next 6 weeks - Discharge Home Score 4 - 6: 20.3% MACE over next 6 weeks - Admit for Clinical Observation Score 7 - 10: 72.7% MACE over next 6 weeks - Early Invasive Strategies Current Medications: Current Medications Medications (Trade) Dose Ordered Sig/Maryl Start Time Stop Time Status Last Admin Dose Admin Oxycodone/ Acetaminophen (Percocet 7.5/ 325) 1 tab 1X ONCE 10/05/19 04:00 10/05/19 04:01 Allergies: Allergies: Allergies Coded Allergies Type Severity Reaction Last Updated Verified Penicillins Allergy Intermediate hives 12/25/18 Yes Sulfa (Sulfonamide Antibiotics) Allergy Intermediate 12/25/18 Yes clavulanic acid Allergy Intermediate 12/25/18 Yes I S O L A T I O N *CONTACT* Allergy Unknown 12/25/18 Yes Physical Exam: PE: Constitutional: Well developed, well nourished, no acute distress, non-toxic appearance. HENT: No trismus Eyes: Conjunctiva clear, EOMI Neck: Normal range of motion, no tenderness, supple, no stridor. [] Cardiovascular: Regular rate/rhythm, peripheral pulse intact, SOFTWARE ADMINISTRATOR intact Lungs & Thorax: No respiratory distress Abdomen: No distension Skin: Diffuse: Intact, no rash Back: Full ROM Extremities: , no warmth or erythema to the left knee. There is mild swelling with mildly limited range of motion. Neurovascular intact distally. Skin is intact without erythema. limited range of motion due to pain. Neurologic: Alert and oriented X 3, normal motor function, , no focal deficits noted. Psychologic: Affect normal, judgement normal, mood normal. Current Patient Data: Vital Signs: Vital Signs Date Time Temp Pulse Resp B/P (MAP) Pulse Ox O2 Delivery O2 Flow Rate FiO2 10/05/19 03:09 98.7 82 18 136/71 (92) 95 Room Air 98.7 EKG: EKG: [] Radiology/Procedures: Radiology/Procedures: [][facility] [address] [place] [address] IMAGING REPORT Signed PATIENT: GIORGIO LOVEUNT: [id number] : 1945 LOCATION: ER AGE: 74 SEX: F EXAM STATUS: REG ER ORD. PHYSICIAN: GARFIELD GARCIA MD REASON: pain ER#05 PROCEDURE: KNEE LEFT 3V PROCEDURE: KNEE LEFT 3V STUDY DATE: 10/05/2019 CLINICAL INDICATION / HISTORY: Reason: pain ER#05 / Spl. Instructions: / History: . TECHNIQUE: AP, lateral, and oblique views of the left knee. COMPARISON: Contralateral (right) knee of 12/18/2018 FINDINGS: The osseous structures are intact. The articular surfaces are smooth. The joint space is maintained. No intra-articular loose bodies. The alignment is within normal limits. The soft tissues are unremarkable. There is a moderate size joint effusion present No radio-opaque foreign bodies are identified. IMPRESSION: Moderate left knee joint effusion. No fracture, malalignment, or aggressive osseous lesions shown. Electronically signed by: Manish Torrez MD (10/05/2019 5:21 AM) [facility] [place] SIGNED BY: MANISH TORREZ MD DATE: 10/05/19 0521 Course & Med Decision Making: Course & Med Decision Making Pertinent Labs and Imaging studies reviewed. (See chart for details) []5:00: SLEEPING COMFORTABLY. D/W patient need for follow-up with her primary doctor. Patient can take 2 of her hydrocodone as they are 5 mg. Told patient overnight to take for 6 hours. Patient with chronic left knee pain that had a cortisone injection 2 days prior presents with left knee pain. Patient does have some swelling to the knee but no fever, warmth or erythema to the area. I clinically doubt septic arthritis. Patient feels better after pain meds in the ER. Patient will follow-up with their physician in the short-term. Return precautions given Dragon Disclaimer: Dragon Disclaimer: This electronic medical record was generated, in whole or in part, using a voice recognition dictation system. Departure Departure Impression: Primary Impression: Left knee pain Additional Impression: Arthritis of left knee Disposition: 01 HOME, SELF-CARE Condition: STABLE Referrals: LO LEDESMA MD (PCP) Patient Instructions: Arthralgia Additional Instructions: EMERGENCY DEPARTMENT GENERAL DISCHARGE INSTRUCTIONS Thank you for coming to [facility] Emergency Department (ED) today and trusting us with you care. We trust that you had a positivie experience in our Emergency Department. If you wish to speak to the department management, you may call the sirector at [phone]. YOUR FOLLOW UP INSTRUCTIONS ARE FOLLOWS: 1. Do you have a private Doctor? If you do not have a private doctir, please ask for a resource list of physicians or clinics that may be able to assist you with follow up care. 2. The Emergency Physicain has interpreted your x-rays. The X-Ray specialist will also review them. If there is a change in the findingd, you will be notified in 48 hours when at all possible. 3. A lab test or culture has been done, your results will be reviewed and you will be notified if you need a change in treatment. ADDITIONAL INSTRUCTIONS AND INFORMATION: 1. Your care today has been supervised by a physician who is specially trained in emergency care. Many problems require more than one evaluation for a complete diagnosis and treatment. We recommend that you schedule your follow up appointment as recommended to ensure complete treatment of you illness or injury. If you are unable to obtain follow up care and continue to have a problem, or if your consition worsens, we recommend that you return to the ED. 2. We are not able to safelymdetermine your condition over the phone nor are we able to give sound medical advice over the phone. For these safety reasons, if you call for medical advice we will ask you to come to the ED for further evaluation. 3. If you have any questions regarding these discharge instructions please call the ED at [phone]. SAFETY INFORMATION: In the interest of safety, wellness, and injury prevention; we encourage you to wear your sealbelt, if you smoke; quite smoking, and we encourage family to use a protective helmet for bicycling and other sporting events that present an increased risk for head injusry. IF YOUR SYMPTOMS WORSEN OR NEW SYMPTOMS DEVELOP, OR YOU HAVE CONCERNS ABOUT YOUR CONDITION; OR IF YOUR CONDITION WORSENS WHILE YOU ARE WAITING FOR YOUR FOLLOW UP APPOINTMENT; EITHER CONTACT YOUR PRIMARY CARE DOCTOR, THE PHYSICIAN WHOSE NAME AND NUMBER YOU WERE GIVEN, OR RETURN TO THE ED IMMEDIATELY. Justicifation of Admission Dx: Justifications for Admission: Justification of Admission Dx: N/A GARFIELD GARCIA MD Oct 05, 2019 03:37
[2019-10-05 03:44] VITALS: BP 142/62
[2019-10-05] MEDS ORDERED: oxyCODONE/APAP 7.5/325 1 TAB TABLET PO ONE (04:00)
--- NOTE | 2019-10-05 05:23 | RAD ---
PROCEDURE: KNEE LEFT 3V STUDY DATE: 10/05/2019 CLINICAL INDICATION / HISTORY: Reason: pain ER#05 / Spl. Instructions: / History: . TECHNIQUE: AP, lateral, and oblique views of the left knee. COMPARISON: Contralateral (right) knee of 12/18/2018 FINDINGS: The osseous structures are intact. The articular surfaces are smooth. The joint space is maintained. No intra-articular loose bodies. The alignment is within normal limits. The soft tissues are unremarkable. There is a moderate size joint effusion present No radio-opaque foreign bodies are identified. IMPRESSION: Moderate left knee joint effusion. No fracture, malalignment, or aggressive osseous lesions shown. Electronically signed by: Lisbet Torrez MD (10/05/2019 5:21 AM) [facility] [place]
== END 2019-10-05 05:09 | disposition home or self-care (01) ==
LOC: ER 02:55
DX: M17.12 Unilateral primary osteoarthritis, left knee (principal); M25.462 Effusion, left knee; E11.40 Type 2 diabetes mellitus with diabetic neuropathy, unspecified; E78.00 Pure hypercholesterolemia, unspecified; I10 Essential (primary) hypertension; Z90.89 Acquired absence of other organs; Z90.49 Acquired absence of other specified parts of digestive tract; Z90.710 Acquired absence of both cervix and uterus; Z95.0 Presence of cardiac pacemaker; Z88.0 Allergy status to penicillin; Z88.2 Allergy status to sulfonamides; Z91.041 Radiographic dye allergy status; Z88.8 Allergy status to other drugs, medicaments and biological substances
CPT/HCPCS: 73562; 99283

== ENCOUNTER → 2019-11-20 | Outpatient (CLI) | payer MEDICARE ==
[~2019-11-20] MED LIST changes: -ASPI-612 PO; +ASPI-886 PO
[2019-11-20 15:30] LABS: ALK PHOS 118 U/L (46-116); GAMMA GLUTAMYL TRANSPEPTIDASE 28 U/L (5-55)
[2019-11-20 15:37] LABS: FREE T4 0.94 ng/dL (0.76-1.46); THYROID STIM HORMONE (TSH) 0.931 uIU/mL (0.358-3.74)
[2019-11-22 17:09] LABS: ALKPHOS BONE 58 % (14-68); ALKPHOS INTES% 2 % (0-18); ALKPHOS LIV 40 % (18-85); ALPHOS TOT 113 IU/L (39-117)
[2019-11-23 17:09] LABS: GLIA IGA 7 units (0-19); GLIA IGG 3 units (0-19); TRANSGLUTAMINASE IGA AB 3 U/mL (0-3); TRANSGLUTAMINASE IGG AB <2 U/mL (0-5)
== END | disposition home or self-care (01) ==
LOC: LAB 14:28
PROVIDERS: ATTEND Internal Medicine Gastroenterology
DX: R74.8 Abnormal levels of other serum enzymes (principal); R19.7 Diarrhea, unspecified
CPT/HCPCS: 36415; 82977; 83516; 84075; 84080; 84439; 84443

== ENCOUNTER → 2020-04-12 | Outpatient (CLI) | payer MEDICARE ==
[~2020-04-12] MED LIST changes: +AMLO-187 PO; -AMLO10TA8 PO; +B CO1TAB30 PO; +BUPR150T21 PO; -BUPR150T6 PO; +CHOL500021 PO; -CLIN150C14 PO; +CLIN150C15 PO; +DICY10CA3 PO; +GEMF600T20 PO; -GEMF600T8 PO; +LEVO500T8 PO; -LISI-334 PO; +LISI20TA18 PO; -MECL12.573 PO; +MECL12.582 PO; +MIRT-7 PO; -MIRT15TA3 PO; +OMEP20TA8 PO; +TONIC WATER
--- NOTE | 2020-04-12 17:02 | RAD ---
EXAM: Chest, 2 views HISTORY: Shortness of air. COMPARISON: 12/01/2018 FINDINGS: 2 views of the chest are obtained. There is no infiltrate, pleural effusion or pneumothorax . The heart is normal in size. There is a cardiac pacemaker with leads in expected position. There ar e dorsal column stimulator leads overlying the mid thoracic spine. There is lumbar fusion instrumenta tion. IMPRESSION: No acute pulmonary finding. Electronically signed by: Donna Grossman MD (04/12/2020 5:00 PM) [id number]
== END ==
LOC: RAD 16:18
PROVIDERS: ATTEND Internal Medicine Cardiovascular Disease
DX: R06.02 Shortness of breath (principal); Z95.0 Presence of cardiac pacemaker
CPT/HCPCS: 71046

== ENCOUNTER 2020-04-23 09:48 | Emergency (ER) | payer MEDICARE ==
[~2020-04-23] VITALS: Ht 160 cm; Wt 81.8 kg
[~2020-04-23 09:48] MED LIST changes: -B CO1TAB30 PO; -CHOL500021 PO; -DICY10CA3 PO; -LEVO500T8 PO; -OMEP20TA8 PO; -TONIC WATER
--- NOTE | 2020-04-23 11:10 | RAD ---
AP chest. HISTORY: Short of air AP view was taken of the chest. Lungs are clear. Heart is upper normal in size. There is no effusion. There are stimulating leads in the spinal canal. There is a left pacemaker with atrial and ventricul ar pacing leads. There are no acute infiltrates. IMPRESSION: 1. No acute infiltrates. Electronically signed by: Mo Stewart MD (04/23/2020 11:08 AM) [facility]
--- NOTE | 2020-04-23 11:18 | PHYS DOC ---
Past Medical History Past Medical History: Diabetes-Type II, Fibromyalgia, High Cholesterol, H ypertension, MRSA, Other Additional Past Medical Histor: neuropathy,RLS,subarachnoid hemorrhage(2002),VERTIGO,EDEMA,CHRONIC BACK RADHA Past Surgical History: Appendectomy, Cholecystectomy, Hysterectomy, Pacemaker, Other Additional Past Surgical Histo: Multiple back surgeries, carpal tunnel, breast reduction, pain stimulator Smoking Status: Never Smoker Alcohol Use: None Drug Use: None General Adult EDM: Chief Complaint: LOWER EXT PAIN HPI: HPI: Patient is a 74 year old female who presented to ER for evaluation of bilateral lower extremity pain and swelling over a week. The swelling and pain got worse yesterday. 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 Cordero a week ago, had chest x-ray done and it was normal. Patient was put on Lasix 40 mg twice a day. Patient denies any chest pain, no trouble breathing, no cough, no fever. Review of Systems: Review of Systems: Constitutional: Denies fever or chills. [] Eyes: Denies change in visual acuity. [] HENT: Denies nasal congestion or sore throat. [] Respiratory: Denies cough or shortness of breath. [] Cardiovascular: Denies chest pain or edema. [] GI: Denies abdominal pain, nausea, vomiting, bloody stools or diarrhea. [] : Denies dysuria. [] Musculoskeletal: Bilateral leg swelling and pain. Integument: Denies rash. [] Neurologic: Denies headache, focal weakness or sensory changes. [] Endocrine: Denies polyuria or polydipsia. [] Lymphatic: Denies swollen glands. [] Psychiatric: Denies depression or anxiety. [] Heart Score: Risk Factors: Risk Factors: DM, Current or recent (<one month) smoker, HTN, HLP, family history of CAD, obesity. Risk Scores: Score 0 - 3: 2.5% MACE over next 6 weeks - Discharge Home Score 4 - 6: 20.3% MACE over next 6 weeks - Admit for Clinical Observation Score 7 - 10: 72.7% MACE over next 6 weeks - Early Invasive Strategies Allergies: Allergies: Allergies Coded Allergies Type Severity Reaction Last Updated Verified Penicillins Allergy Intermediate hives 12/25/18 Yes Sulfa (Sulfonamide Antibiotics) Allergy Intermediate 12/25/18 Yes clavulanic acid Allergy Intermediate 12/25/18 Yes I S O L A T I O N *CONTACT* Allergy Unknown 12/25/18 Yes Physical Exam: PE: Constitutional: Well developed, well nourished, no acute distress, non-toxic appearance. [] HENT: Normocephalic, atraumatic, bilateral external ears normal, oropharynx moist, no oral exudates, nose normal. [] Eyes: PERRLA, EOMI, conjunctiva normal, no discharge. [] Neck: Normal range of motion, no tenderness, supple, no stridor. [] Cardiovascular:Heart rate regular rhythm, no murmur [] Lungs & Thorax: Bilateral breath sounds clear to auscultation [] Abdomen: Bowel sounds normal, soft, no tenderness, no masses, no pulsatile masses. [] Skin: Warm, dry, no erythema, no rash. [] Back: No tenderness, no CVA tenderness. [] Extremities: Bilateral lower extremity pitting edema 2+ cyst, tender to palpation. Neurologic: Alert and oriented X 3, normal motor function, normal sensory function, no focal deficits noted. [] Psychologic: Affect normal, judgement normal, mood normal. [] Current Patient Data: Labs: Laboratory Tests Test 04/23/20 11:25 White Blood Count 6.1 x10^3/uL Red Blood Count 4.45 x10^6/uL Hemoglobin 12.2 g/dL Hematocrit 36.3 % Mean Corpuscular Volume 82 fL Mean Corpuscular Hemoglobin 28 pg Mean Corpuscular Hemoglobin Concent 34 g/dL Red Cell Distribution Width 14.9 % Platelet Count 220 x10^3/uL Neutrophils (%) (Auto) 59 % Lymphocytes (%) (Auto) 31 % Monocytes (%) (Auto) 7 % Eosinophils (%) (Auto) 2 % Basophils (%) (Auto) 1 % Neutrophils # (Auto) 3.6 x10^3/uL Lymphocytes # (Auto) 1.9 x10^3/uL Monocytes # (Auto) 0.4 x10^3/uL Eosinophils # (Auto) 0.1 x10^3/uL Basophils # (Auto) 0.1 x10^3/uL Sodium Level 143 mmol/L Potassium Level 3.4 mmol/L Chloride Level 106 mmol/L Carbon Dioxide Level 29 mmol/L Anion Gap 8 Blood Urea Nitrogen 12 mg/dL Creatinine 0.8 mg/dL Estimated GFR (Cockcroft-Gault) 70.5 BUN/Creatinine Ratio 15 Glucose Level 131 mg/dL Calcium Level 8.9 mg/dL Magnesium Level 1.7 mg/dL Total Bilirubin 0.3 mg/dL Aspartate Amino Transf (AST/SGOT) 29 U/L Alanine Aminotransferase (ALT/SGPT) 29 U/L Alkaline Phosphatase 117 U/L Total Protein 7.4 g/dL Albumin 3.3 g/dL Albumin/Globulin Ratio 0.8 Current Medications Medications (Trade) Dose Ordered Sig/Marly Route PRN Reason Start Time Stop Time Status Last Admin Dose Admin Morphine Sulfate (Morphine Sulfate) 4 mg 1X ONCE IV 04/23/20 12:00 04/23/20 12:01 DC 04/23/20 12:03 Magnesium Sulfate/ Dextrose 100 ml @ 100 mls/hr 1X ONCE IV 04/23/20 12:15 04/23/20 13:14 Vital Signs: Vital Signs Date Time Temp Pulse Resp B/P (MAP) Pulse Ox O2 Delivery O2 Flow Rate FiO2 04/23/20 10:08 96.8 81 20 184/85 (118) 96 Room Air 96.8 EKG: EKG: EKG was done at 1145, heart rate 75 beats per minute, sinus rhythm, left bundle branch block, no ST segment elevation. Radiology/Procedures: Radiology/Procedures: [][facility] [address] [place] [address] IMAGING REPORT Signed PATIENT: GIORGIO LOVE JACCOUNT: [id number] : 1945 LOCATION: ER AGE: 74 SEX: F EXAM STATUS: PRE ER ORD. PHYSICIAN: JARROD MONTERROSO DO REASON: SOA PROCEDURE: PORTABLE CHEST 1V AP chest. HISTORY: Short of air AP view was taken of the chest. Lungs are clear. Heart is upper normal in size. There is no effusion. There are stimulating leads in the spinal canal. There is a left pacemaker with atrial and ventricular pacing leads. There are no acute infiltrates. IMPRESSION: 1. No acute infiltrates. Electronically signed by: Mo Stewart MD (04/23/2020 11:08 AM) [facility] DICTATED and SIGNED BY: MO STEWART MD DATE: 04/23/20 [id number] [facility] [address] [place] [address] IMAGING REPORT Signed PATIENT: GIORGIO LOVEUNT: [id number] : 1945 LOCATION: ER AGE: 74 SEX: F EXAM STATUS: REG ER ORD. PHYSICIAN: JARROD MONTERROSO DO REASON: legs pain and swelling PROCEDURE: VENOUS LOWER EXT BILATERAL Bilateral Lower Extremity Venous Doppler: Reason for examination: Bilateral leg pain and swelling The lower extremity venous systems bilaterally were evaluated from the common femoral and greater saphenous veins distally to the calf veins with grayscale imaging, color-flow imaging and spectral analysis. There is normal blood flow without deep venous thrombosis. There is normal response of the venous systems to compression and augmentation. Impression: No deep venous thrombosis in the lower extremity venous systems bilaterally. Electronically signed by: Mo Stewart MD (04/23/2020 2:11 PM) [facility] DICTATED and SIGNED BY: MO STEWART MD DATE: 04/23/20 [id number] 0 Course & Med Decision Making: Course & Med Decision Making Pertinent Labs and Imaging studies reviewed. (See chart for details) [] Dragon Disclaimer: Dragon Disclaimer: This electronic medical record was generated, in whole or in part, using a voice recognition dictation system. Departure Departure Impression: Primary Impression: Edema of both lower extremities due to peripheral venous insufficiency Additional Impressions: Leg pain, bilateral UTI (urinary tract infection) Disposition: 01 DC HOME SELF CARE/HOMELESS Condition: STABLE Referrals: LO LEDESMA MD (PCP) follow up with your doctor Patient Instructions: Leg Cramps, Peripheral Edema, Urinary Tract Infection Additional Instructions: Thank you for visiting our Emergency Department. We appreciate you trusting us with your care. If any additional problems come up don't hesitate to return to visit us. Please follow up with your primary care provider so they can plan additional care if needed and know about the problem that you had. If symptoms worsen come back to the Emergency Department. Any concerning symptoms that start such as chest pain, shortness of air, weakness or numbness on one side of the body, running high fevers or any other concerning symptoms return to the ER. Scripts Levofloxacin (LEVOFLOXACIN) 500 Mg Tablet 1 TAB PO DAILY for 7 Days, #7 TAB Prov: JARROD MONTERROSO DO 04/23/20 JARROD MONTERROSO DO Apr 23, 2020 11:18
[2020-04-23 11:41] LABS: BASO # 0.1 x10^3/uL (0.0-0.2); BASO % 1 % (0-3); EOS # 0.1 x10^3/uL (0.0-0.7); EOS % 2 % (0-3); HEMATOCRIT 36.3 % (36.0-47.0); HEMOGLOBIN 12.2 g/dL (12.0-15.5); LYMPH # 1.9 x10^3/uL (1.0-4.8); LYMPH % 31 % (24-48); MEAN CORPUSCULAR HEMOGLOBIN 28 pg (25-35); MEAN CORPUSCULAR HGB CONC 34 g/dL (31-37); MEAN CORPUSCULAR VOLUME 82 fL (79-100); MONO # 0.4 x10^3/uL (0.0-1.1); MONO % 7 % (0-9); NEUT # 3.6 x10^3/uL (1.8-7.7); NEUT % 59 % (31-73); PLATELET COUNT 220 x10^3/uL (140-400); RED BLOOD COUNT 4.45 x10^6/uL (3.50-5.40); RED CELL DISTRIBUTION WIDTH 14.9 % (11.5-14.5); WHITE BLOOD COUNT 6.1 x10^3/uL (4.0-11.0)
[2020-04-23 11:50] LABS: CALCIUM 8.9 mg/dL (8.5-10.1); CREATININE 0.8 mg/dL (0.6-1.0); GFR 70.5; POTASSIUM 3.4 mmol/L (3.5-5.1)
[2020-04-23 11:55] LABS: ALBUMIN 3.3 g/dL (3.4-5.0); ALBUMIN/GLOBULIN RATIO 0.8 (1.0-1.7); MAGNESIUM 1.7 mg/dL (1.8-2.4); TOTAL BILIRUBIN 0.3 mg/dL (0.2-1.0); TOTAL PROTEIN 7.4 g/dL (6.4-8.2)
[2020-04-23] MEDS ORDERED: MORPHINE SULFATE 4 MG/ML VIAL. IV ONE ×2 (12:00→14:00)
[2020-04-23] MEDS ORDERED: MAGNESIUM SULFATE 1GM 100 ML IV ONE (12:15)
[2020-04-23 12:45] LABS: BILIRUBIN,URINE NEGATIVE (NEG); CLARITY,URINE CLEAR; COLOR,URINE YELLOW; NITRITE,URINE NEGATIVE (NEG); PROTEIN,URINE NEGATIVE (NEG-TRACE); UROBILINOGEN,URINE 0.2 mg/dL (0.2 mg/dL)
[2020-04-23 13:03] LABS: BACTERIA,URINE 0 /HPF (0-FEW); RBC,URINE 0 /HPF (0-2)
[2020-04-23] MEDS ORDERED: POTASSIUM CHLORIDE 10 MEQ TABLET.ER. PO ONE (13:30)
--- NOTE | 2020-04-23 14:14 | RAD ---
Bilateral Lower Extremity Venous Doppler: Reason for examination: Bilateral leg pain and swelling The lower extremity venous systems bilaterally were evaluated from the common femoral and greater sap henous veins distally to the calf veins with grayscale imaging, color-flow imaging and spectral alice sis. There is normal blood flow without deep venous thrombosis. There is normal response of the venous sys tems to compression and augmentation. Impression: No deep venous thrombosis in the lower extremity venous systems bilaterally. Electronically signed by: Mo Stewart MD (04/23/2020 2:11 PM) [facility]
[2020-04-23 14:15] VITALS: BP 154/68
[2020-04-23] MEDS ORDERED: LEVO500T8 PO (15:27)
--- NOTE | 2020-04-25 11:59 | EKG ---
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
== END 2020-04-23 15:35 | disposition home or self-care (01) ==
LOC: ER 09:48
DX: N39.0 Urinary tract infection, site not specified (principal); R60.0 Localized edema; I87.2 Venous insufficiency (chronic) (peripheral); E11.9 Type 2 diabetes mellitus without complications; E78.00 Pure hypercholesterolemia, unspecified; I10 Essential (primary) hypertension; Z86.14 Personal history of Methicillin resistant Staphylococcus aureus infection; G25.81 Restless legs syndrome; Z90.89 Acquired absence of other organs; Z90.710 Acquired absence of both cervix and uterus; Z90.49 Acquired absence of other specified parts of digestive tract; Z95.0 Presence of cardiac pacemaker; Z88.0 Allergy status to penicillin; Z88.2 Allergy status to sulfonamides; Z91.041 Radiographic dye allergy status; Z88.8 Allergy status to other drugs, medicaments and biological substances
CPT/HCPCS: 36415; 71045; 80053; 81001; 83735; 83880; 84484; 85025; 87086; 93005; 93970; 96365; 96375; 96376; 99285; J2270; J3475; 87077; 87147

== ENCOUNTER 2020-05-15 19:32 | Inpatient (IN) | payer MEDICARE ==
[~2020-05-15] VITALS: Ht 160 cm; Wt 91.0 kg
[~2020-05-15 19:32] MED LIST changes: +LEVO500T8 PO
[2020-05-15 20:27] LABS: BILIRUBIN,URINE NEGATIVE (NEG); CLARITY,URINE CLEAR; COLOR,URINE YELLOW; NITRITE,URINE NEGATIVE (NEG); PROTEIN,URINE NEGATIVE (NEG-TRACE); UROBILINOGEN,URINE 0.2 mg/dL (0.2 mg/dL)
[2020-05-15] MEDS ORDERED: methylPREDNISolone SOD SUCC PF 125 MG/2 ML VIAL. IV ONE (20:30)
[2020-05-15] MEDS ORDERED: fentaNYL PF VIAL 100 MCG/2 ML VIAL IVP ONE (20:30)
[2020-05-15 20:32] LABS: BACTERIA,URINE 0 /HPF (0-FEW); RBC,URINE RARE /HPF (0-2)
--- NOTE | 2020-05-15 20:48 | PHYS DOC ---
Past Medical History Past Medical History: Diabetes-Type II, Fibromyalgia, High Cholesterol, H ypertension, MRSA, Other Additional Past Medical Histor: neuropathy,RLS,subarachnoid hemorrhage(2002),VERTIGO,EDEMA,CHRONIC BACK RADHA Past Surgical History: Appendectomy, Cholecystectomy, Hysterectomy, Pacemaker, Other Additional Past Surgical Histo: Multiple back surgeries, carpal tunnel, breast reduction, pain stimulator Smoking Status: Never Smoker Alcohol Use: None Drug Use: None General Adult EDM: Chief Complaint: BACK PAIN OR INJURY HPI: HPI: Patient is a 74 year old female who presents with 2 days of bilateral low back pain with sharp shooting sciatica pain down the back of both of her legs bilaterally. She states she has been taking her [place] but is not helping. She walks with a cane and she is off balance but that is nothing unusual for her she states. Patient sees Dr. Patterson. Patient has had multiple back surgeries. She has a history of RLS, neuropathy, subarachnoid hemorrhage, vertigo, carpal tunnel surgery, breast reduction, pain stimulator, hysterectomy, cholecystectomy, appendectomy, diabetes type 2, chronic back pain, hypertension, high cholesterol, fibromyalgia. Patient rates her pain a 10 out of 10. She states she is still able to walk but is painful. She denies loss of bowel bladder. She states that she is incontinent but does nothing new for her. Review of Systems: Review of Systems: Constitutional: Denies fever or chills. [] Eyes: Denies change in visual acuity. [] HENT: Denies nasal congestion or sore throat. [] Respiratory: Denies cough or shortness of breath. [] Cardiovascular: Denies chest pain or edema. [] GI: Denies abdominal pain, nausea, vomiting, bloody stools or diarrhea. [] : Denies dysuria. [] Musculoskeletal: + Bilateral lower back pain sharp radiation down bilateral legs or joint pain. [] Integument: Denies rash. [] Neurologic: Denies headache, focal weakness or sensory changes. [] Endocrine: Denies polyuria or polydipsia. [] Lymphatic: Denies swollen glands. [] Psychiatric: Denies depression or anxiety. [] Heart Score: Risk Factors: Risk Factors: DM, Current or recent (<one month) smoker, HTN, HLP, family history of CAD, obesity. Risk Scores: Score 0 - 3: 2.5% MACE over next 6 weeks - Discharge Home Score 4 - 6: 20.3% MACE over next 6 weeks - Admit for Clinical Observation Score 7 - 10: 72.7% MACE over next 6 weeks - Early Invasive Strategies Current Medications: Current Medications Medications (Trade) Dose Ordered Sig/Marly Start Time Stop Time Status Last Admin Dose Admin Fentanyl Citrate (Fentanyl 2ml Vial) 50 mcg 1X ONCE 05/15/20 20:30 05/15/20 20:33 DC Methylprednisolone Sodium Succinate (SOLU-Medrol 125MG VIAL) 125 mg 1X ONCE 05/15/20 20:30 05/15/20 20:33 DC Allergies: Allergies: Allergies Coded Allergies Type Severity Reaction Last Updated Verified Penicillins Allergy Intermediate hives 12/25/18 Yes Sulfa (Sulfonamide Antibiotics) Allergy Intermediate 12/25/18 Yes clavulanic acid Allergy Intermediate 12/25/18 Yes I S O L A T I O N *CONTACT* Allergy Unknown 12/25/18 Yes Physical Exam: PE: Constitutional: Well developed, well nourished, no acute distress, non-toxic appearance. [] HENT: Normocephalic, atraumatic, bilateral external ears normal, oropharynx moist, no oral exudates, nose normal. [] Eyes: PERRLA, EOMI, conjunctiva normal, no discharge. [] Neck: Normal range of motion, no tenderness, supple, no stridor. [] Cardiovascular:Heart rate regular rhythm, no murmur [] Lungs & Thorax: Bilateral breath sounds clear to auscultation [] Abdomen: Bowel sounds normal, soft, no tenderness, no masses, no pulsatile masses. [] Skin: Warm, dry, no erythema, no rash. [] Back: Bilateral low back tenderness, no CVA tenderness. [] Extremities: No tenderness, no cyanosis, no clubbing, ROM intact, no edema. [] Neurologic: Alert and oriented X 3, normal motor function, normal sensory function, no focal deficits noted. [] Psychologic: Affect normal, judgement normal, mood normal. [] Current Patient Data: Labs: Laboratory Tests Test 05/15/20 20:20 Urine Collection Type U cath Urine Color Yellow Urine Clarity Clear Urine pH 6.0 (<5.0-8.0) Urine Specific [place] 1.015 (1.000-1.030) Urine Protein Negative mg/dL (NEG-TRACE) Urine Glucose (UA) Negative mg/dL (NEG) Urine Ketones (Stick) Negative mg/dL (NEG) Urine Blood Negative (NEG) Urine Nitrite Negative (NEG) Urine Bilirubin Negative (NEG) Urine Urobilinogen Dipstick 0.2 mg/dL (0.2 mg/dL) Urine Leukocyte Esterase Trace (NEG) Urine RBC Rare /HPF (0-2) Urine WBC 1-4 /HPF (0-4) Urine Squamous Epithelial Cells Few /LPF Urine Bacteria 0 /HPF (0-FEW) Urine Mucus Slight /LPF Vital Signs: Vital Signs Date Time Temp Pulse Resp B/P (MAP) Pulse Ox O2 Delivery O2 Flow Rate FiO2 05/15/20 19:55 97.8 101 13 211/100 (137) 92 Room Air 97.8 EKG: EK and read by Dr Blount as Sinus Rhythm, Prolonged UT and no STEMI. Radiology/Procedures: Radiology/Procedures: [] Impression: [facility] [address] [place], [place] [id number] IMAGING REPORT Signed PATIENT: GIORGIO LOVECOUNT: [id number] : 1945 LOCATION: ER AGE: 74 SEX: F EXAM STATUS: REG ER ORD. PHYSICIAN: JEFERSON ROE APRN REASON: ACUTE BACK PAIN PROCEDURE: CT LUMBAR SPINE WO CONTRAST Exam: CT the lumbar spine without contrast INDICATION: Back pain TECHNIQUE: Sequential axial images through the lumbar spine obtained without IV contrast. Sagittal and coronal reformatted images were reconstructed from the axial data and reviewed. Comparisons: None FINDINGS: Posterior lumbar fusion hardware noted with bilateral transpedicular screws and interconnecting vertical stabilization rods. Vertebral body heights and alignment are well-maintained. Laminectomy changes are noted from L2 to L5. Acute fracture to the lumbar spine is not identified. Evaluation of the spinal canal is limited secondary to metallic streak artifact. No significant neural foraminal or spinal canal stenosis is identified. Visualized paraspinal soft tissues are unremarkable. IMPRESSION: Negative CT lumbar spine for acute traumatic injury. Exposure: One or more of the following in the visualized dose reduction techniques were utilized for this examination: 1. Automated exposure control 2. Adjustment of the MA and/or KV according to patient size 3. Use of iterative of reconstructive technique Electronically signed by: Kam Brown MD (05/15/2020 8:59 PM) [facility] DICTATED and SIGNED BY: KAM BROWN MD DATE: 05/15/[id number] 0 Course & Med Decision Making: Course & Med Decision Making Pertinent Labs and Imaging studies reviewed. (See chart for details) See HPI. Alert and oriented x4. Speaks in full complete sentences. Patient is able to ambulate and move all of her extremities equally with equal strengths. No focal weaknesses. Skin pink warm and dry. Abdomen is soft and no tenderness. No saddle paresthesias. Afebrile. Noted tenderness to bilateral lower back but no focal bony spinal tenderness. Sensations intact. After Solu-Medrol and fentanyl patient states her pain is not any better. She states is too hard to ambulate and she already has a hard time keeping her balance. Patient would like to stay in the hospital. I have consulted Dr. Nikko booker to come and see her. Patient admitted to hospitalist for intractable back pain. [] Fred Disclaimer: Fred Disclaimer: This electronic medical record was generated, in whole or in part, using a voice recognition dictation system. Departure Departure Impression: Primary Impression: Intractable low back pain Additional Impressions: Sciatic leg pain Hypokalemia Disposition: 09 ADMITTED INPT THIS HOSP Admitting Physician: MARIKA Condition: STABLE Referrals: LO LEDESMA MD (PCP) JEFERSON ROE APRN May 15, 2020 20:48
--- NOTE | 2020-05-15 21:01 | RAD ---
Exam: CT the lumbar spine without contrast INDICATION: Back pain TECHNIQUE: Sequential axial images through the lumbar spine obtained without IV contrast. Sagittal an d coronal reformatted images were reconstructed from the axial data and reviewed. Comparisons: None FINDINGS: Posterior lumbar fusion hardware noted with bilateral transpedicular screws and interconnecting verti carrington stabilization rods. Vertebral body heights and alignment are well-maintained. Laminectomy changes are noted from L2 to L5. Acute fracture to the lumbar spine is not identified. Evaluation of the spinal canal is limited secondary to metallic streak artifact. No significant neura l foraminal or spinal canal stenosis is identified. Visualized paraspinal soft tissues are unremarkable. IMPRESSION: Negative CT lumbar spine for acute traumatic injury. Exposure: One or more of the following in the visualized dose reduction techniques were utilized for this examination: 1. Automated exposure control 2. Adjustment of the MA and/or KV according to patient size 3. Use of iterative of reconstructive technique Electronically signed by: Kam Tate MD (05/15/2020 8:59 PM) [facility]
[2020-05-15] MEDS ORDERED: fentaNYL PF VIAL 100 MCG/2 ML VIAL IV PRN (22:00)
[2020-05-15] MEDS: HYDROmorphone 2 MG/ML VIAL IVP PRN (22:29)
[2020-05-15] MEDS ORDERED: CYCLOBENZAPRINE 10 MG TABLET. PO PRN (22:30)
[2020-05-15 22:40] LABS: BASO % 0 % (0-3); EOS # 0.1 x10^3/uL (0.0-0.7); EOS % 1 % (0-3); HEMATOCRIT 36.7 % (36.0-47.0); HEMOGLOBIN 12.4 g/dL (12.0-15.5); LYMPH # 0.8 x10^3/uL (1.0-4.8); LYMPH % 10 % (24-48); MEAN CORPUSCULAR HEMOGLOBIN 27 pg (25-35); MEAN CORPUSCULAR HGB CONC 34 g/dL (31-37); MEAN CORPUSCULAR VOLUME 81 fL (79-100); MONO # 0.2 x10^3/uL (0.0-1.1); MONO % 3 % (0-9); NEUT # 7.2 x10^3/uL (1.8-7.7); NEUT % 86 % (31-73); PLATELET COUNT 230 x10^3/uL (140-400); RED BLOOD COUNT 4.52 x10^6/uL (3.50-5.40); RED CELL DISTRIBUTION WIDTH 14.6 % (11.5-14.5); WHITE BLOOD COUNT 8.4 x10^3/uL (4.0-11.0)
--- NOTE | 2020-05-15 22:43 | HP ---
ADMIT DATE: 05/15/2020 CHIEF COMPLAINT: Back pain. 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 Once again, she presents with back pain that has been. This has been occurring for a couple of days. She increased her home meds. She is supposed to see Dr. Patterson soon, rates it at 10/10. She has associated weakness. It is worse with moving. I discussed the case with ER physician. We are going to admit the patient, give her pain management and consult Dr. Patterson. PAST MEDICAL HISTORY: Previous 10 back surgeries, fibromyalgia, diabetes, hypertension, hyperlipidemia, MRSA, neuropathy, RLS, subarachnoid hemorrhage, vertigo, chronic pain, appendectomy, cholecystectomy, hysterectomy, pacemaker, carpal tunnel surgery, breast reduction, pain stimulator. ALLERGIES: PENICILLIN, SULFA AND CLAVULANIC ACID. FAMILY HISTORY: Diabetes. SOCIAL HISTORY: She does not drink, smoke or take drugs. 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 She is . MEDICATIONS: Reviewed, please refer to the MRAD. REVIEW OF SYSTEMS: GENERAL: No history of weight change, weakness or fevers. SKIN: No bruising, hair changes or rashes. EYES: No blurred, double or loss of vision. NOSE AND THROAT: No history of nosebleeds, hoarseness or sore throat. HEART: No history of palpitations, chest pain or shortness of breath on exertion. LUNGS: Denies cough, hemoptysis, wheezing or shortness of breath. GASTROINTESTINAL: Denies changes in appetite, nausea, vomiting, diarrhea or constipation. GENITOURINARY: No history of frequency, urgency, hesitancy or nocturia. NEUROLOGIC: Denies history of numbness, tingling, tremor or weakness. PSYCHIATRIC: No history of panic, anxiety or depression. ENDOCRINE: No history of heat or cold intolerance, polyuria or polydipsia. MUSCULOSKELETAL: She complains of severe back pain. PHYSICAL EXAMINATION: VITALS: Within normal limits and are stable. GENERAL: No apparent distress. Alert and oriented. HEENT: Normal cephalic atraumatic, external auditory canals are patent EYES: Extraocular muscles are intact, pupils are equally round and reactive to light and accommodation MUSCULOSKELETAL: Well developed, well nourished, good range of motion ENDOCRINE: No thyromegaly was palpated LYMPHATICS: No cervical chain or axillary nodes were noted HEMATOPOIETIC: No bruising NECK: Supple, no JVD, no thyromegaly was noted. LUNGS: Clear to auscultation in all lung jones without rhonchi or wheezing. HEART: RRR, S1, S2 present. Peripheral pulses intact, no obvious murmurs were noted. ABDOMEN: Soft, nontender. Positive bowel sounds no organomegaly, normal bowel sounds. EXTREMITIES: Without any cyanosis, clubbing, or edema. Pedal pulses intact, Homans sign is negative. BACK: Her back is very tender to touch. NEUROLOGIC: She is straight leg testing positive. Normal speech, normal tone. A & O x3, moves all extremities, no obvious focal deficits. PSYCHIATRIC: Normal affect, normal mood. Stable. SKIN: No ulcerations or rashes, good skin turgor, no jaundice. VASCULAR: Good capillary refill, neurovascular bundle appears to be intact. DATA: Urinalysis negative. Trace leukocyte esterase. Other labs are pending. Lumbar spine CT: Negative CT lumbar spine for acute traumatic injury. ASSESSMENT AND PLAN: Lumbar radiculopathy. The patient will be admitted. We will consult Dr. Patterson. P.r.n. Dilaudid. P.o. Flexeril. Home meds. DVT prophylaxis. Full code. JIL DAVID DO DR: CHARITO/antonio JOB#: [id number] / [id number]
[2020-05-15 22:55] LABS: ALBUMIN 2.8 g/dL (3.4-5.0); ALBUMIN/GLOBULIN RATIO 0.9 (1.0-1.7); CALCIUM 6.9 mg/dL (8.5-10.1); CREATININE 0.6 mg/dL (0.6-1.0); GFR 98.3; TOTAL BILIRUBIN 0.3 mg/dL (0.2-1.0); TOTAL PROTEIN 5.9 g/dL (6.4-8.2)
[2020-05-15 23:04] LABS: POTASSIUM 2.7 mmol/L (3.5-5.1)
[2020-05-15 23:11] LABS: % BANDS 2 % (0-9); % EOS 4 % (0-5); % LYMPHS 4 % (24-48); % MONOS 2 % (0-10); % SEGS 88 % (35-66); PLT ESTIMATE ADEQUATE (ADEQUATE); TOXIC GRANULATION SLIGHT
[2020-05-15] MEDS ORDERED: POTASSIUM CHLORIDE 20 MEQ TABLET.ER. PO ONE (23:30)
[2020-05-15] MEDS ORDERED: ONDANSETRON PF 4 MG/2 ML VIAL. IVP ONE (23:30)
[2020-05-15 23:46] VITALS: BP 145/70
--- NOTE | 2020-05-16 00:37 | EKG ---
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
[2020-05-16] MEDS ORDERED: DICY10CA3 PO (00:57)
[2020-05-16] MEDS ORDERED: OMEP20TA8 PO (00:57)
[2020-05-16] MEDS ORDERED: CHOL500021 PO (00:57)
[2020-05-16] MEDS ORDERED: TRAZ-118 PO (00:57)
[2020-05-16] MEDS ORDERED: B CO1TAB30 PO (00:57)
[2020-05-16] MEDS ORDERED: GEMF600T20 PO (00:57)
[2020-05-16] MEDS ORDERED: TONIC WATER (00:57)
[2020-05-16 03:00] VITALS: BP 146/54
[2020-05-16] MEDS: HYDROmorphone 2 MG/ML VIAL IVP PRN ×3 (04:45→21:55)
[2020-05-16 07:00] VITALS: BP 115/64
--- NOTE | 2020-05-16 07:30 | NUR ---
PATIENTS' BLOOD SUGAR LEVEL 304, PATIENT DOES NOT HAVE A SLIDING SCALE OR MEAL DOSE INSULIN ORDERED. CALL PLACE TO DR. DAVID AND ORDERS RECEIVED FOR 15 UNITS NOVOLOG INSULIN X1, THEN MODERATE SENSITIVITY SLIDING SCALE.
--- NOTE | 2020-05-16 07:35 | NUR ---
PATIENT REUSED INSULIN, STATED "I DON'T TAKE INSULIN, IT MAKES THINGS WORSE, IT MAKES MY BLOOD SUGAR GO UP MORE, DR. JONES INFORMED, HOME MEDS IN COMPUTER, DR. JONES INFORMED.
[2020-05-16] MEDS ORDERED: DEXTROSE 50% 25 GM / 50ML DISP.SYRIN. IV PRN (08:00)
[2020-05-16] MEDS: INSULIN LISPRO 300 UNITS/3 ML VIAL. SQ SCH ×3 (08:00→17:00)
[2020-05-16] MEDS ORDERED: INSULIN LISPRO 300 UNITS/3 ML VIAL. SQ ONE (08:15)
[2020-05-16 11:00] VITALS: BP 98/38
[2020-05-16] MEDS ORDERED: ALPRAZolam 0.5 MG TABLET PO PRN (11:00)
[2020-05-16] MEDS ORDERED: POTASSIUM CHLORIDE 20 MEQ TABLET.ER. PO ONE (11:15)
--- NOTE | 2020-05-16 11:19 | PDOC ---
PROGRESS NOTES Date of Service: DATE: 05/16/20 TIME: 11:17 Chief Complaint Chief Complaint Lumbar radiculopathy. acute on chronic back pain Marked neuropathy CHF, acute on chronic Dm2, poor control, she refused insulin therapy in the hospial obese, BMI 35 T History of Present Illness History of Present Illness back pain is intractable, but worse over time, some other symptoms, but maybe related to her other medical conditions Dm2, refuse insulin CHF Vitals Vitals Vital Signs Date Time Temp Pulse Resp B/P (MAP) Pulse Ox O2 Delivery O2 Flow Rate FiO2 05/16/20 10:31 20 93 Room Air 05/16/20 07:00 98.8 94 115/64 (81) 2.0 98.8 Physical Exam Physical Exam lying prone to help her back pain General: Alert, Cooperative, moderate distress Heart: Regular rate, Normal S1 Lungs: Clear Abdomen: Normal bowel sounds, Soft Skin: No breakdown Labs LABS Laboratory Tests Test 05/15/20 20:20 05/15/20 22:33 05/16/20 07:30 Urine Collection Type U cath Urine Color Yellow Urine Clarity Clear Urine pH 6.0 (<5.0-8.0) Urine Specific [place] 1.015 (1.000-1.030) Urine Protein Negative mg/dL (NEG-TRACE) Urine Glucose (UA) Negative mg/dL (NEG) Urine Ketones (Stick) Negative mg/dL (NEG) Urine Blood Negative (NEG) Urine Nitrite Negative (NEG) Urine Bilirubin Negative (NEG) Urine Urobilinogen Dipstick 0.2 mg/dL (0.2 mg/dL) Urine Leukocyte Esterase Trace (NEG) Urine RBC Rare /HPF (0-2) Urine WBC 1-4 /HPF (0-4) Urine Squamous Epithelial Cells Few /LPF Urine Bacteria 0 /HPF (0-FEW) Urine Mucus Slight /LPF White Blood Count 8.4 x10^3/uL (4.0-11.0) Red Blood Count 4.52 x10^6/uL (3.50-5.40) Hemoglobin 12.4 g/dL (12.0-15.5) Hematocrit 36.7 % (36.0-47.0) Mean Corpuscular Volume 81 fL (79-100) Mean Corpuscular Hemoglobin 27 pg (25-35) Mean Corpuscular Hemoglobin Concent 34 g/dL (31-37) Red Cell Distribution Width 14.6 % (11.5-14.5) Platelet Count 230 x10^3/uL (140-400) Neutrophils (%) (Auto) 86 % (31-73) Lymphocytes (%) (Auto) 10 % (24-48) Monocytes (%) (Auto) 3 % (0-9) Eosinophils (%) (Auto) 1 % (0-3) Basophils (%) (Auto) 0 % (0-3) Neutrophils # (Auto) 7.2 x10^3/uL (1.8-7.7) Lymphocytes # (Auto) 0.8 x10^3/uL (1.0-4.8) Monocytes # (Auto) 0.2 x10^3/uL (0.0-1.1) Eosinophils # (Auto) 0.1 x10^3/uL (0.0-0.7) Basophils # (Auto) 0.0 x10^3/uL (0.0-0.2) Segmented Neutrophils % 88 % (35-66) Band Neutrophils % 2 % (0-9) Lymphocytes % 4 % (24-48) Monocytes % 2 % (0-10) Eosinophils % 4 % (0-5) Toxic Granulation Slight Platelet Estimate Adequate (ADEQUATE) Sodium Level 143 mmol/L (136-145) Potassium Level 2.7 mmol/L (3.5-5.1) Chloride Level 111 mmol/L (98-107) Carbon Dioxide Level 25 mmol/L (21-32) Anion Gap 7 (6-14) Blood Urea Nitrogen 10 mg/dL (7-20) Creatinine 0.6 mg/dL (0.6-1.0) Estimated GFR (Cockcroft-Gault) 98.3 BUN/Creatinine Ratio 17 (6-20) Glucose Level 104 mg/dL (70-99) Calcium Level 6.9 mg/dL (8.5-10.1) Total Bilirubin 0.3 mg/dL (0.2-1.0) Aspartate Amino Transf (AST/SGOT) 47 U/L (15-37) Alanine Aminotransferase (ALT/SGPT) 28 U/L (14-59) Alkaline Phosphatase 98 U/L (46-116) Total Protein 5.9 g/dL (6.4-8.2) Albumin 2.8 g/dL (3.4-5.0) Albumin/Globulin Ratio 0.9 (1.0-1.7) Glucose (Fingerstick) 304 mg/dL (70-99) Review of Systems Review of Systems she complains of pretibial edema, is scant back pain limits conversation Assessment and Plan Assessmemt and Plan Problems Medical Problems: (1) Hypokalemia Status: Acute (2) Intractable low back pain Status: Acute (3) Sciatic leg pain Status: Acute Comment Review of Relevant I have reviewed the following items lucy (where applicable) has been applied. Labs Laboratory Tests Test 05/15/20 20:20 05/15/20 22:33 05/16/20 07:30 Urine Collection Type U cath Urine Color Yellow Urine Clarity Clear Urine pH 6.0 (<5.0-8.0) Urine Specific [place] 1.015 (1.000-1.030) Urine Protein Negative mg/dL (NEG-TRACE) Urine Glucose (UA) Negative mg/dL (NEG) Urine Ketones (Stick) Negative mg/dL (NEG) Urine Blood Negative (NEG) Urine Nitrite Negative (NEG) Urine Bilirubin Negative (NEG) Urine Urobilinogen Dipstick 0.2 mg/dL (0.2 mg/dL) Urine Leukocyte Esterase Trace (NEG) Urine RBC Rare /HPF (0-2) Urine WBC 1-4 /HPF (0-4) Urine Squamous Epithelial Cells Few /LPF Urine Bacteria 0 /HPF (0-FEW) Urine Mucus Slight /LPF White Blood Count 8.4 x10^3/uL (4.0-11.0) Red Blood Count 4.52 x10^6/uL (3.50-5.40) Hemoglobin 12.4 g/dL (12.0-15.5) Hematocrit 36.7 % (36.0-47.0) Mean Corpuscular Volume 81 fL (79-100) Mean Corpuscular Hemoglobin 27 pg (25-35) Mean Corpuscular Hemoglobin Concent 34 g/dL (31-37) Red Cell Distribution Width 14.6 % (11.5-14.5) Platelet Count 230 x10^3/uL (140-400) Neutrophils (%) (Auto) 86 % (31-73) Lymphocytes (%) (Auto) 10 % (24-48) Monocytes (%) (Auto) 3 % (0-9) Eosinophils (%) (Auto) 1 % (0-3) Basophils (%) (Auto) 0 % (0-3) Neutrophils # (Auto) 7.2 x10^3/uL (1.8-7.7) Lymphocytes # (Auto) 0.8 x10^3/uL (1.0-4.8) Monocytes # (Auto) 0.2 x10^3/uL (0.0-1.1) Eosinophils # (Auto) 0.1 x10^3/uL (0.0-0.7) Basophils # (Auto) 0.0 x10^3/uL (0.0-0.2) Segmented Neutrophils % 88 % (35-66) Band Neutrophils % 2 % (0-9) Lymphocytes % 4 % (24-48) Monocytes % 2 % (0-10) Eosinophils % 4 % (0-5) Toxic Granulation Slight Platelet Estimate Adequate (ADEQUATE) Sodium Level 143 mmol/L (136-145) Potassium Level 2.7 mmol/L (3.5-5.1) Chloride Level 111 mmol/L (98-107) Carbon Dioxide Level 25 mmol/L (21-32) Anion Gap 7 (6-14) Blood Urea Nitrogen 10 mg/dL (7-20) Creatinine 0.6 mg/dL (0.6-1.0) Estimated GFR (Cockcroft-Gault) 98.3 BUN/Creatinine Ratio 17 (6-20) Glucose Level 104 mg/dL (70-99) Calcium Level 6.9 mg/dL (8.5-10.1) Total Bilirubin 0.3 mg/dL (0.2-1.0) Aspartate Amino Transf (AST/SGOT) 47 U/L (15-37) Alanine Aminotransferase (ALT/SGPT) 28 U/L (14-59) Alkaline Phosphatase 98 U/L (46-116) Total Protein 5.9 g/dL (6.4-8.2) Albumin 2.8 g/dL (3.4-5.0) Albumin/Globulin Ratio 0.9 (1.0-1.7) Glucose (Fingerstick) 304 mg/dL (70-99) Laboratory Tests Test 05/15/20 20:20 05/15/20 22:33 05/16/20 07:30 Urine Collection Type U cath Urine Color Yellow Urine Clarity Clear Urine pH 6.0 (<5.0-8.0) Urine Specific [place] 1.015 (1.000-1.030) Urine Protein Negative mg/dL (NEG-TRACE) Urine Glucose (UA) Negative mg/dL (NEG) Urine Ketones (Stick) Negative mg/dL (NEG) Urine Blood Negative (NEG) Urine Nitrite Negative (NEG) Urine Bilirubin Negative (NEG) Urine Urobilinogen Dipstick 0.2 mg/dL (0.2 mg/dL) Urine Leukocyte Esterase Trace (NEG) Urine RBC Rare /HPF (0-2) Urine WBC 1-4 /HPF (0-4) Urine Squamous Epithelial Cells Few /LPF Urine Bacteria 0 /HPF (0-FEW) Urine Mucus Slight /LPF White Blood Count 8.4 x10^3/uL (4.0-11.0) Red Blood Count 4.52 x10^6/uL (3.50-5.40) Hemoglobin 12.4 g/dL (12.0-15.5) Hematocrit 36.7 % (36.0-47.0) Mean Corpuscular Volume 81 fL (79-100) Mean Corpuscular Hemoglobin 27 pg (25-35) Mean Corpuscular Hemoglobin Concent 34 g/dL (31-37) Red Cell Distribution Width 14.6 % (11.5-14.5) Platelet Count 230 x10^3/uL (140-400) Neutrophils (%) (Auto) 86 % (31-73) Lymphocytes (%) (Auto) 10 % (24-48) Monocytes (%) (Auto) 3 % (0-9) Eosinophils (%) (Auto) 1 % (0-3) Basophils (%) (Auto) 0 % (0-3) Neutrophils # (Auto) 7.2 x10^3/uL (1.8-7.7) Lymphocytes # (Auto) 0.8 x10^3/uL (1.0-4.8) Monocytes # (Auto) 0.2 x10^3/uL (0.0-1.1) Eosinophils # (Auto) 0.1 x10^3/uL (0.0-0.7) Basophils # (Auto) 0.0 x10^3/uL (0.0-0.2) Segmented Neutrophils % 88 % (35-66) Band Neutrophils % 2 % (0-9) Lymphocytes % 4 % (24-48) Monocytes % 2 % (0-10) Eosinophils % 4 % (0-5) Toxic Granulation Slight Platelet Estimate Adequate (ADEQUATE) Sodium Level 143 mmol/L (136-145) Potassium Level 2.7 mmol/L (3.5-5.1) Chloride Level 111 mmol/L (98-107) Carbon Dioxide Level 25 mmol/L (21-32) Anion Gap 7 (6-14) Blood Urea Nitrogen 10 mg/dL (7-20) Creatinine 0.6 mg/dL (0.6-1.0) Estimated GFR (Cockcroft-Gault) 98.3 BUN/Creatinine Ratio 17 (6-20) Glucose Level 104 mg/dL (70-99) Calcium Level 6.9 mg/dL (8.5-10.1) Total Bilirubin 0.3 mg/dL (0.2-1.0) Aspartate Amino Transf (AST/SGOT) 47 U/L (15-37) Alanine Aminotransferase (ALT/SGPT) 28 U/L (14-59) Alkaline Phosphatase 98 U/L (46-116) Total Protein 5.9 g/dL (6.4-8.2) Albumin 2.8 g/dL (3.4-5.0) Albumin/Globulin Ratio 0.9 (1.0-1.7) Glucose (Fingerstick) 304 mg/dL (70-99) Medications Current Medications Methylprednisolone Sodium Succinate (SOLU-Medrol 125MG VIAL) 125 mg 1X ONCE IV Last administered on 05/15/20at 21:13; Start 05/15/20 at 20:30; Stop 05/15/20 at 20:33; Status DC Fentanyl Citrate (Fentanyl 2ml Vial) 50 mcg 1X ONCE IVP Last administered on 05/15/20at 21:13; Start 05/15/20 at 20:30; Stop 05/15/20 at 20:33; Status DC Fentanyl Citrate (Fentanyl 2ml Vial) 50 mcg PRN Q3HRS PRN IV SEVERE PAIN 7-10 Last administered on 05/16/20at 02:05; Start 05/15/20 at 22:00; Stop 05/16/20 at 21:59 Hydromorphone HCl (Dilaudid) 1 mg QIDPRN PRN IVP SEVERE PAIN 7-10 Last administered on 05/16/20at 10:31; Start 05/15/20 at 22:30 Cyclobenzaprine HCl (Flexeril) 10 mg QIDPRN PRN PO MUSCLE SPASMS Last administered on 05/15/20at 22:28; Start 05/15/20 at 22:30 Potassium Chloride (Klor-Con) 40 meq 1X ONCE PO Last administered on 05/15/20at 23:27; Start 05/15/20 at 23:30; Stop 05/15/20 at 23:31; Status DC Ondansetron HCl (Zofran) 4 mg 1X ONCE IVP Last administered on 05/15/20at 23:27; Start 05/15/20 at 23:30; Stop 05/15/20 at 23:31; Status DC Insulin Human Lispro (HumaLOG) 15 units 1X ONCE SQ ; Start 05/16/20 at 08:15; Stop 05/16/20 at 08:16; Status DC Insulin Human Lispro (HumaLOG) 0-7 UNITS TIDWMEALS SQ ; Start 05/16/20 at 08:00 Dextrose (Dextrose 50%-Water Syringe) 12.5 gm PRN Q15MIN PRN IV SEE COMMENTS; Start 05/16/20 at 08:00 Alprazolam (Xanax) 0.5 mg PRN BID PRN PO ANXIETY; Start 05/16/20 at 11:00 Dicyclomine HCl (Bentyl) 10 mg QID PO ; Start 05/16/20 at 13:00 Gemfibrozil (Lopid) 600 mg DAILY PO ; Start 05/16/20 at 12:00 Acetaminophen/ Hydrocodone Bitart (Lortab 5/325) 1 tab PRN Q4HRS PRN PO BREAKTHROUGH PAIN; Start 05/16/20 at 11:00 Loperamide HCl (Imodium) 2 mg PRN DAILY PRN PO DIARRHEA; Start 05/16/20 at 11:00 Trazodone HCl (Desyrel) 50 mg HS PO ; Start 05/16/20 at 21:00 Vitamin B Complex (Pramod B) 1 tab DAILY PO ; Start 05/16/20 at 12:00 Vitamin D (Vitamin D3) 1,000 unit DAILY PO ; Start 05/16/20 at 12:00 Duloxetine HCl (Cymbalta) 60 mg DAILY PO ; Start 05/16/20 at 12:00 Gabapentin (Neurontin) 600 mg HS PO ; Start 05/16/20 at 21:00 Glipizide (Glucotrol) 10 mg BIDBFRMEAL PO ; Start 05/16/20 at 16:30 Pantoprazole Sodium (Protonix) 40 mg HS PO ; Start 05/16/20 at 21:00 Ropinirole HCl (Requip) 0.5 mg BID PO ; Start 05/16/20 at 12:00 Linagliptin (Tradjenta) 5 mg DAILY PO ; Start 05/16/20 at 12:00 Active Scripts Active Reported D3-50 (Cholecalciferol (Vitamin D3)) 50,000 Unit Capsule 10 Mcg PO DAILY B-Complex with C (B Complex with Vitamin C) 1 Each Tablet 1 Each PO DAILY Dicyclomine Hcl 10 Mg Capsule 10 Mg PO QID [Tonic Water] HS Trazodone Hcl 50 Mg Tablet 50 Mg PO HS Omeprazole 20 Mg Tablet.dr 20 Mg PO HS Gemfibrozil 600 Mg Tablet 600 Mg PO DAILY Cymbalta (Duloxetine Hcl) 60 Mg Capsule.dr 1 Cap PO DAILY Januvia (Sitagliptin Phosphate) 100 Mg Tablet 1 Tab PO DAILY Gabapentin 600 Mg Tablet 600 Mg PO HS Glipizide 10 Mg Tablet 10 Mg PO BID Alprazolam 0.5 Mg Tablet 1 Tab PO PRN BID PRN Imodium A-D (Loperamide HCl) 2 Mg Capsule 2 Mg PO TWICE WEEKLY PRN Requip (Ropinirole Hcl) 0.5 Mg Tablet 1 Tab PO BID [place] 5-325 Tablet (Acetaminophen/Hydrocodone Bitart) 1 Each Tablet 1 Tab PO PRN Q4HRS PRN Given dose at 1:45 pm May take again after 9:45 Vitals/I & O Vital Sign - Last 24 Hours 05/15/20 05/15/20 05/15/20 05/15/20 19:55 21:13 21:14 21:30 Temp 97.8 97.8 Pulse 101 97 94 Resp 13 B/P (MAP) 211/100 (137) 117/71 (86) 120/80 (93) Pulse Ox 92 96 97 O2 Delivery Room Air Room Air Room Air Room Air 05/15/20 05/15/20 05/15/20 05/15/20 22:00 22:29 22:30 23:00 Pulse 96 93 103 B/P (MAP) 122/84 (97) 106/85 (92) 139/82 (101) Pulse Ox 97 97 97 O2 Delivery Room Air Room Air Room Air Room Air 05/15/20 05/15/20 05/16/20 05/16/20 23:30 23:46 00:28 02:05 Temp 99.4 99.4 Pulse 88 100 Resp 20 18 B/P (MAP) 131/74 (93) 145/70 (95) Pulse Ox 97 96 96 O2 Delivery Room Air Nasal Cannula Nasal Cannula Nasal Cannula O2 Flow Rate 2.0 2.0 2.0 05/16/20 05/16/20 05/16/20 05/16/20 02:35 03:00 05:15 07:00 Temp 98.3 98.8 98.3 98.8 Pulse 89 94 Resp 16 20 16 20 B/P (MAP) 146/54 (84) 115/64 (81) Pulse Ox 93 93 93 98 O2 Delivery Nasal Cannula Nasal Cannula Nasal Cannula Nasal Cannula O2 Flow Rate 2.0 2.0 2.0 2.0 05/16/20 10:31 Resp 20 Pulse Ox 93 O2 Delivery Room Air Justicifation of Admission Dx: Justifications for Admission: Justification of Admission Dx: N/A HARISH JONES MD May 16, 2020 11:19
[2020-05-16] MEDS: DULoxetine HCL 30 MG CAPSULE.DR PO SCH (12:01)
[2020-05-16] MEDS: VITAMIN B COMPLEX TABLET. PO SCH (12:01)
[2020-05-16] MEDS: CHOLECALCIFEROL (VITAMIN D3) 1,000 UNIT TABLET PO SCH (12:01)
[2020-05-16] MEDS: LINAGLIPTIN 5 MG TABLET PO SCH (12:01)
[2020-05-16] MEDS: rOPINIRole 0.25 MG TABLET. PO SCH ×2 (12:01→21:53)
[2020-05-16] MEDS: GEMFIBROZIL 600 MG TABLET. PO SCH (12:02)
[2020-05-16] MEDS: DICYCLOMINE HCL 10 MG CAPSULE PO SCH ×3 (13:00→21:53)
--- NOTE | 2020-05-16 14:34 | NUR ---
SW following for discharge planning. Spoke with RN and reviewed chart. Pt from home with spouse. Pt admitted with back pain. 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 Pt on room air, IV pain medication. Discharge plan is home, self-care. No anticipated SW needs on discharge.
[2020-05-16 15:00] VITALS: BP 154/72
[2020-05-16] MEDS: glipiZIDE 5 MG TABLET PO SCH (16:08)
[2020-05-16] MEDS: LOPERAMIDE 2 MG CAPSULE PO PRN ×2 (16:08→22:09)
[2020-05-16] MEDS: HYDROcodone/APAP 5/325MG 1 TAB TABLET PO PRN ×2 (18:14→22:08)
[2020-05-16 19:00] VITALS: BP 136/67
[2020-05-16] MEDS ORDERED: GABAPENTIN 300 MG CAPSULE. PO SCH (21:00)
[2020-05-16] MEDS ORDERED: traZODone 50 MG TABLET. PO SCH (21:00)
[2020-05-16] MEDS ORDERED: PANTOPRAZOLE 40 MG TABLET.DR. PO SCH (21:00)
[2020-05-16 23:15] VITALS: BP 128/48
[2020-05-17 03:00] VITALS: BP 123/60
[2020-05-17 07:00] VITALS: BP 153/65
[2020-05-17] MEDS: INSULIN LISPRO 300 UNITS/3 ML VIAL. SQ SCH ×2 (08:00→12:00)
[2020-05-17] MEDS: CHOLECALCIFEROL (VITAMIN D3) 1,000 UNIT TABLET PO SCH (08:42)
[2020-05-17] MEDS: DICYCLOMINE HCL 10 MG CAPSULE PO SCH (08:42)
[2020-05-17] MEDS: rOPINIRole 0.25 MG TABLET. PO SCH (08:42)
[2020-05-17] MEDS: LINAGLIPTIN 5 MG TABLET PO SCH (08:42)
[2020-05-17] MEDS: glipiZIDE 5 MG TABLET PO SCH (08:42)
[2020-05-17] MEDS: VITAMIN B COMPLEX TABLET. PO SCH (08:42)
[2020-05-17] MEDS: GEMFIBROZIL 600 MG TABLET. PO SCH (08:43)
[2020-05-17] MEDS: DULoxetine HCL 30 MG CAPSULE.DR PO SCH (08:43)
--- NOTE | 2020-05-17 10:55 | PDOC3 ---
Discharge Summary Visit Information Date of Admission: May 15, 2020 Date of Discharge: May 17, 2020 Final Diagnosis Lumbar radiculopathy. acute on chronic back pain Marked neuropathy CHF, acute on chronic Dm2, poor control, she refused insulin therapy in the hospial obese, BMI 35 Problems Medical Problems: (1) Hypokalemia Status: Acute (2) Intractable low back pain Status: Acute (3) Sciatic leg pain Status: Acute Brief Hospital Course Allergies Allergies Coded Allergies Type Severity Reaction Last Updated Verified Penicillins Allergy Intermediate hives 12/25/18 Yes Sulfa (Sulfonamide Antibiotics) Allergy Intermediate 12/25/18 Yes clavulanic acid Allergy Intermediate 12/25/18 Yes I S O L A T I O N *CONTACT* Allergy Unknown 12/25/18 Yes Vital Signs Vital Signs Date Time Temp Pulse Resp B/P (MAP) Pulse Ox O2 Delivery O2 Flow Rate FiO2 05/17/20 07:00 98.4 91 19 153/65 (94) 92 Nasal Cannula 2.0 98.4 Lab Results Laboratory Tests Test 05/15/20 20:20 05/15/20 22:33 05/16/20 07:30 05/16/20 11:26 Urine Collection Type U cath Urine Color Yellow Urine Clarity Clear Urine pH 6.0 (<5.0-8.0) Urine Specific [place] 1.015 (1.000-1.030) Urine Protein Negative mg/dL (NEG-TRACE) Urine Glucose (UA) Negative mg/dL (NEG) Urine Ketones (Stick) Negative mg/dL (NEG) Urine Blood Negative (NEG) Urine Nitrite Negative (NEG) Urine Bilirubin Negative (NEG) Urine Urobilinogen Dipstick 0.2 mg/dL (0.2 mg/dL) Urine Leukocyte Esterase Trace (NEG) Urine RBC Rare /HPF (0-2) Urine WBC 1-4 /HPF (0-4) Urine Squamous Epithelial Cells Few /LPF Urine Bacteria 0 /HPF (0-FEW) Urine Mucus Slight /LPF White Blood Count 8.4 x10^3/uL (4.0-11.0) Red Blood Count 4.52 x10^6/uL (3.50-5.40) Hemoglobin 12.4 g/dL (12.0-15.5) Hematocrit 36.7 % (36.0-47.0) Mean Corpuscular Volume 81 fL (79-100) Mean Corpuscular Hemoglobin 27 pg (25-35) Mean Corpuscular Hemoglobin Concent 34 g/dL (31-37) Red Cell Distribution Width 14.6 % (11.5-14.5) Platelet Count 230 x10^3/uL (140-400) Neutrophils (%) (Auto) 86 % (31-73) Lymphocytes (%) (Auto) 10 % (24-48) Monocytes (%) (Auto) 3 % (0-9) Eosinophils (%) (Auto) 1 % (0-3) Basophils (%) (Auto) 0 % (0-3) Neutrophils # (Auto) 7.2 x10^3/uL (1.8-7.7) Lymphocytes # (Auto) 0.8 x10^3/uL (1.0-4.8) Monocytes # (Auto) 0.2 x10^3/uL (0.0-1.1) Eosinophils # (Auto) 0.1 x10^3/uL (0.0-0.7) Basophils # (Auto) 0.0 x10^3/uL (0.0-0.2) Segmented Neutrophils % 88 % (35-66) Band Neutrophils % 2 % (0-9) Lymphocytes % 4 % (24-48) Monocytes % 2 % (0-10) Eosinophils % 4 % (0-5) Toxic Granulation Slight Platelet Estimate Adequate (ADEQUATE) Sodium Level 143 mmol/L (136-145) Potassium Level 2.7 mmol/L (3.5-5.1) Chloride Level 111 mmol/L (98-107) Carbon Dioxide Level 25 mmol/L (21-32) Anion Gap 7 (6-14) Blood Urea Nitrogen 10 mg/dL (7-20) Creatinine 0.6 mg/dL (0.6-1.0) Estimated GFR (Cockcroft-Gault) 98.3 BUN/Creatinine Ratio 17 (6-20) Glucose Level 104 mg/dL (70-99) Calcium Level 6.9 mg/dL (8.5-10.1) Total Bilirubin 0.3 mg/dL (0.2-1.0) Aspartate Amino Transf (AST/SGOT) 47 U/L (15-37) Alanine Aminotransferase (ALT/SGPT) 28 U/L (14-59) Alkaline Phosphatase 98 U/L (46-116) Total Protein 5.9 g/dL (6.4-8.2) Albumin 2.8 g/dL (3.4-5.0) Albumin/Globulin Ratio 0.9 (1.0-1.7) Glucose (Fingerstick) 304 mg/dL (70-99) 235 mg/dL (70-99) Test 05/16/20 17:14 05/16/20 20:08 05/17/20 07:46 Glucose (Fingerstick) 198 mg/dL (70-99) 99 mg/dL (70-99) 89 mg/dL (70-99) Laboratory Tests Test 05/16/20 11:26 05/16/20 17:14 05/16/20 20:08 05/17/20 07:46 Glucose (Fingerstick) 235 mg/dL (70-99) 198 mg/dL (70-99) 99 mg/dL (70-99) 89 mg/dL (70-99) Brief Hospital Course Ms. Nicolas is a 74 old female, admit with severe, and intractable back pain, she declined to see Dr. Coker, and Dr. Garber does not come to the hospital currently due to pandemic. her pain was better after a day, she has a spinal stimulator, and her was given instructions on who to call to adjust, and he had not done so as of this AM. pain better, f/u in clinic with Dr. Garber, pain management Discharge Information Condition at Discharge: Improved Follow Up: Weeks Disposition/Orders: D/C to Home Scheduled B Complex with Vitamin C (B-Complex with C) 1 Each Tablet, 1 EACH PO DAILY for SUPPLEMENT, (Reported) Entered as Reported by: FLASH CORBIN on 05/16/2056 Last Action: Converted on 05/16/201099 by MITZI WALKER Cholecalciferol (Vitamin D3) (D3-50) 50,000 Unit Capsule, 10 MCG PO DAILY for SUPPLEMENT, (Reported) Entered as Reported by: FLASH CORBIN on 05/16/2056 Last Action: Converted on 05/16/201099 by MITZI WALKER Dicyclomine Hcl (Dicyclomine Hcl) 10 Mg Capsule, 10 MG PO QID for IBS, (Reported) Entered as Reported by: FLASH CORBIN on 05/16/2056 Last Action: Continued on 05/16/201099 by MITZI WALKER Duloxetine Hcl (Cymbalta) 60 Mg Capsule.dr, 1 CAP PO DAILY for Medical management, #90 Ref 3 (Reported) Entered as Reported by: MEÑO MAIN on 12/01/18824 Last Action: Converted on 05/16/201099 by MITZI WALKER Gabapentin (Gabapentin) 600 Mg Tablet, 600 MG PO HS for NEUROGENIC PAIN, (Reported) Entered as Reported by: SEDRICK DENNIS on 10/17/18 113 Last Action: Converted on 05/16/201099 by MITZI WALKER Gemfibrozil (Gemfibrozil) 600 Mg Tablet, 600 MG PO DAILY for HLD, (Reported) Entered as Reported by: FLASH CORBIN on 05/16/2056 Last Action: Continued on 05/16/201099 by MITZI WALKER Glipizide (Glipizide) 10 Mg Tablet, 10 MG PO BID for high blood sugar, (Reported) Entered as Reported by: SEDRICK DENNIS on 08/04/18 1029 Last Action: Converted on 05/16/201099 by MITZI WALKER Omeprazole (Omeprazole) 20 Mg Tablet.dr, 20 MG PO HS for GERD, (Reported) Entered as Reported by: FLASH CORBIN on 05/16/2056 Last Action: Converted on 05/16/201099 by MITZI WALKER Ropinirole Hcl (Requip) 0.5 Mg Tablet, 1 TAB PO BID, #60 Ref 1 (Reported) Entered as Reported by: SEDRICK MURILLO on 01/05/17 184 Last Action: Converted on 05/16/201099 by MITZI WALKER Sitagliptin Phosphate (Januvia) 100 Mg Tablet, 1 TAB PO DAILY for DM II, #30 Ref 5 (Reported) Entered as Reported by: MEÑO MAIN on 12/01/18824 Last Action: Converted on 05/16/201099 by MITZI WALKER Trazodone Hcl (Trazodone Hcl) 50 Mg Tablet, 50 MG PO HS for INSOMNIA, (Reported) Entered as Reported by: FLASH CORBIN on 05/16/2056 Last Action: Continued on 05/16/201099 by MITZI WALKER [Tonic Water] , HS for LEG CRAMPS, (Reported) Entered as Reported by: FLASH CORBIN on 05/16/2056 Last Action: New Order on 05/16/2056 by FLASH CORBIN Scheduled PRN Alprazolam (Alprazolam) 0.5 Mg Tablet, 1 TAB PO PRN BID PRN for ANXIETY, #60 (Reported) Entered as Reported by: LINDSAY GABRIEL on 06/21/18 0330 Last Action: Continued on 05/16/201099 by MITZI WALKER Hydrocodone/[place] 5-325 ([place] 5-325 Tablet) 1 Each Tablet, 1 TAB PO PRN Q4HRS PRN for BREAKTHROUGH PAIN, #40 (Reported) Given dose at 1:45 pm May take again after 9:45 Entered as Reported by: LEA YOU RN on 08/14/142012 Last Action: Continued on 05/16/201099 by MITZI WALKER Loperamide HCl (Imodium A-D) 2 Mg Capsule, 2 MG PO TWICE WEEKLY PRN for DIARRHEA, (Reported) Entered as Reported by: SEDRICK MURILLO on 01/05/171842 Last Action: Continued on 05/16/201099 by MITZI WALKER Patient Instructions Patient Instructions > 30min face to face and coordination of care, discussed with , RN, SW Justicifation of Admission Dx: Justifications for Admission: Justification of Admission Dx: N/A HARISH JONES MD May 17, 2020 10:55
[2020-05-17 11:00] VITALS: BP 124/70
[2020-05-17] MEDS: HYDROcodone/APAP 5/325MG 1 TAB TABLET PO PRN (12:24)
[2020-05-17] MEDS: LOPERAMIDE 2 MG CAPSULE PO PRN (12:25)
--- NOTE | 2020-05-17 13:02 | PDOC ---
PROGRESS NOTES Date of Service: DATE: 05/17/20 TIME: 13:00 Chief Complaint Chief Complaint Lumbar radiculopathy. acute on chronic back pain Marked neuropathy CHF, acute on chronic Dm2, poor control, she refused insulin therapy in the hospial obese, BMI 35 T History of Present Illness History of Present Illness back pain is intractable, but worse over time, some other symptoms, but maybe related to her other medical conditions Dm2, refuse insulin CHF Vitals Vitals Vital Signs Date Time Temp Pulse Resp B/P (MAP) Pulse Ox O2 Delivery O2 Flow Rate FiO2 05/17/20 12:24 19 93 Room Air 05/17/20 11:00 97.9 82 124/70 (88) 97.9 05/17/20 07:00 2.0 Physical Exam Physical Exam lying prone to help her back pain General: Alert, Cooperative, moderate distress Heart: Regular rate, Normal S1 Lungs: Clear Abdomen: Normal bowel sounds, Soft Skin: No breakdown Labs LABS Laboratory Tests Test 05/16/20 17:14 05/16/20 20:08 05/17/20 07:46 05/17/20 11:20 Glucose (Fingerstick) 198 mg/dL (70-99) 99 mg/dL (70-99) 89 mg/dL (70-99) 107 mg/dL (70-99) Test 05/17/20 11:50 SARS-CoV-2 Antigen (Rapid) Negative (NEGATIVE) Assessment and Plan Assessmemt and Plan Problems Medical Problems: (1) Hypokalemia Status: Acute (2) Intractable low back pain Status: Acute (3) Sciatic leg pain Status: Acute Comment Review of Relevant I have reviewed the following items lucy (where applicable) has been applied. Labs Laboratory Tests Test 05/15/20 20:20 05/15/20 22:33 05/16/20 07:30 05/16/20 11:26 Urine Collection Type U cath Urine Color Yellow Urine Clarity Clear Urine pH 6.0 (<5.0-8.0) Urine Specific [place] 1.015 (1.000-1.030) Urine Protein Negative mg/dL (NEG-TRACE) Urine Glucose (UA) Negative mg/dL (NEG) Urine Ketones (Stick) Negative mg/dL (NEG) Urine Blood Negative (NEG) Urine Nitrite Negative (NEG) Urine Bilirubin Negative (NEG) Urine Urobilinogen Dipstick 0.2 mg/dL (0.2 mg/dL) Urine Leukocyte Esterase Trace (NEG) Urine RBC Rare /HPF (0-2) Urine WBC 1-4 /HPF (0-4) Urine Squamous Epithelial Cells Few /LPF Urine Bacteria 0 /HPF (0-FEW) Urine Mucus Slight /LPF White Blood Count 8.4 x10^3/uL (4.0-11.0) Red Blood Count 4.52 x10^6/uL (3.50-5.40) Hemoglobin 12.4 g/dL (12.0-15.5) Hematocrit 36.7 % (36.0-47.0) Mean Corpuscular Volume 81 fL (79-100) Mean Corpuscular Hemoglobin 27 pg (25-35) Mean Corpuscular Hemoglobin Concent 34 g/dL (31-37) Red Cell Distribution Width 14.6 % (11.5-14.5) Platelet Count 230 x10^3/uL (140-400) Neutrophils (%) (Auto) 86 % (31-73) Lymphocytes (%) (Auto) 10 % (24-48) Monocytes (%) (Auto) 3 % (0-9) Eosinophils (%) (Auto) 1 % (0-3) Basophils (%) (Auto) 0 % (0-3) Neutrophils # (Auto) 7.2 x10^3/uL (1.8-7.7) Lymphocytes # (Auto) 0.8 x10^3/uL (1.0-4.8) Monocytes # (Auto) 0.2 x10^3/uL (0.0-1.1) Eosinophils # (Auto) 0.1 x10^3/uL (0.0-0.7) Basophils # (Auto) 0.0 x10^3/uL (0.0-0.2) Segmented Neutrophils % 88 % (35-66) Band Neutrophils % 2 % (0-9) Lymphocytes % 4 % (24-48) Monocytes % 2 % (0-10) Eosinophils % 4 % (0-5) Toxic Granulation Slight Platelet Estimate Adequate (ADEQUATE) Sodium Level 143 mmol/L (136-145) Potassium Level 2.7 mmol/L (3.5-5.1) Chloride Level 111 mmol/L (98-107) Carbon Dioxide Level 25 mmol/L (21-32) Anion Gap 7 (6-14) Blood Urea Nitrogen 10 mg/dL (7-20) Creatinine 0.6 mg/dL (0.6-1.0) Estimated GFR (Cockcroft-Gault) 98.3 BUN/Creatinine Ratio 17 (6-20) Glucose Level 104 mg/dL (70-99) Calcium Level 6.9 mg/dL (8.5-10.1) Total Bilirubin 0.3 mg/dL (0.2-1.0) Aspartate Amino Transf (AST/SGOT) 47 U/L (15-37) Alanine Aminotransferase (ALT/SGPT) 28 U/L (14-59) Alkaline Phosphatase 98 U/L (46-116) Total Protein 5.9 g/dL (6.4-8.2) Albumin 2.8 g/dL (3.4-5.0) Albumin/Globulin Ratio 0.9 (1.0-1.7) Glucose (Fingerstick) 304 mg/dL (70-99) 235 mg/dL (70-99) Test 05/16/20 17:14 05/16/20 20:08 05/17/20 07:46 05/17/20 11:20 Glucose (Fingerstick) 198 mg/dL (70-99) 99 mg/dL (70-99) 89 mg/dL (70-99) 107 mg/dL (70-99) Test 05/17/20 11:50 SARS-CoV-2 Antigen (Rapid) Negative (NEGATIVE) Laboratory Tests Test 05/16/20 17:14 05/16/20 20:08 05/17/20 07:46 05/17/20 11:20 Glucose (Fingerstick) 198 mg/dL (70-99) 99 mg/dL (70-99) 89 mg/dL (70-99) 107 mg/dL (70-99) Test 05/17/20 11:50 SARS-CoV-2 Antigen (Rapid) Negative (NEGATIVE) Microbiology 05/15/20 Urine Culture - Final, Complete Medications Current Medications Methylprednisolone Sodium Succinate (SOLU-Medrol 125MG VIAL) 125 mg 1X ONCE IV Last administered on 05/15/20at 21:13; Start 05/15/20 at 20:30; Stop 05/15/20 at 20:33; Status DC Fentanyl Citrate (Fentanyl 2ml Vial) 50 mcg 1X ONCE IVP Last administered on 05/15/20at 21:13; Start 05/15/20 at 20:30; Stop 05/15/20 at 20:33; Status DC Fentanyl Citrate (Fentanyl 2ml Vial) 50 mcg PRN Q3HRS PRN IV SEVERE PAIN 7-10 Last administered on 05/16/20at 02:05; Start 05/15/20 at 22:00; Stop 05/16/20 at 21:59; Status DC Hydromorphone HCl (Dilaudid) 1 mg QIDPRN PRN IVP SEVERE PAIN 7-10 Last administered on 05/16/20at 21:55; Start 05/15/20 at 22:30 Cyclobenzaprine HCl (Flexeril) 10 mg QIDPRN PRN PO MUSCLE SPASMS Last administered on 05/15/20at 22:28; Start 05/15/20 at 22:30 Potassium Chloride (Klor-Con) 40 meq 1X ONCE PO Last administered on 05/15/20at 23:27; Start 05/15/20 at 23:30; Stop 05/15/20 at 23:31; Status DC Ondansetron HCl (Zofran) 4 mg 1X ONCE IVP Last administered on 05/15/20at 23:27; Start 05/15/20 at 23:30; Stop 05/15/20 at 23:31; Status DC Insulin Human Lispro (HumaLOG) 15 units 1X ONCE SQ ; Start 05/16/20 at 08:15; Stop 05/16/20 at 08:16; Status DC Insulin Human Lispro (HumaLOG) 0-7 UNITS TIDWMEALS SQ ; Start 05/16/20 at 08:00 Dextrose (Dextrose 50%-Water Syringe) 12.5 gm PRN Q15MIN PRN IV SEE COMMENTS; Start 05/16/20 at 08:00 Alprazolam (Xanax) 0.5 mg PRN BID PRN PO ANXIETY Last administered on 05/16/20at 12:01; Start 05/16/20 at 11:00 Dicyclomine HCl (Bentyl) 10 mg QID PO Last administered on 05/17/20at 08:42; Start 05/16/20 at 13:00 Gemfibrozil (Lopid) 600 mg DAILY PO Last administered on 05/17/20 08:43; Start 05/16/20 at 12:00 Acetaminophen/ Hydrocodone Bitart (Lortab 5/325) 1 tab PRN Q4HRS PRN PO BR EAKTHROUGH PAIN Last administered on 05/17/20 12:24; Start 05/16/20 at 11:00 Loperamide HCl (Imodium) 2 mg PRN DAILY PRN PO DIARRHEA Last administered on 05/17/20 12:25; Start 05/16/20 at 11:00 Trazodone HCl (Desyrel) 50 mg HS PO Last administered on 05/16/20 21:53; Start 05/16/20 at 21:00 Vitamin B Complex (Pramod B) 1 tab DAILY PO Last administered on 05/17/20 08:42; Start 05/16/20 at 12:00 Vitamin D (Vitamin D3) 1,000 unit DAILY PO Last administered on 05/17/20 08:42; Start 05/16/20 at 12:00 Duloxetine HCl (Cymbalta) 60 mg DAILY PO Last administered on 05/17/20 08:43; Start 05/16/20 at 12:00 Gabapentin (Neurontin) 600 mg HS PO Last administered on 05/16/20 21:53; Start 05/16/20 at 21:00 Glipizide (Glucotrol) 10 mg BIDBFRMEAL PO Last administered on 05/17/20 08:42; Start 05/16/20 at 16:30 Pantoprazole Sodium (Protonix) 40 mg HS PO Last administered on 05/16/20 21:54; Start 05/16/20 at 21:00 Ropinirole HCl (Requip) 0.5 mg BID PO Last administered on 05/17/20 08:42; Start 05/16/20 at 12:00 Linagliptin (Tradjenta) 5 mg DAILY PO Last administered on 05/17/20 08:42; Start 05/16/20 at 12:00 Potassium Chloride (Klor-Con) 20 meq 1X ONCE PO Last administered on 05/16/20 12:02; Start 05/16/20 at 11:15; Stop 05/16/20 at 11:16; Status DC Active Scripts Active Reported D3-50 (Cholecalciferol (Vitamin D3)) 50,000 Unit Capsule 10 Mcg PO DAILY B-Complex with C (B Complex with Vitamin C) 1 Each Tablet 1 Each PO DAILY Dicyclomine Hcl 10 Mg Capsule 10 Mg PO QID [Tonic Water] HS Trazodone Hcl 50 Mg Tablet 50 Mg PO HS Omeprazole 20 Mg Tablet.dr 20 Mg PO HS Gemfibrozil 600 Mg Tablet 600 Mg PO DAILY Cymbalta (Duloxetine Hcl) 60 Mg Capsule.dr 1 Cap PO DAILY Januvia (Sitagliptin Phosphate) 100 Mg Tablet 1 Tab PO DAILY Gabapentin 600 Mg Tablet 600 Mg PO HS Glipizide 10 Mg Tablet 10 Mg PO BID Alprazolam 0.5 Mg Tablet 1 Tab PO PRN BID PRN Imodium A-D (Loperamide HCl) 2 Mg Capsule 2 Mg PO TWICE WEEKLY PRN Requip (Ropinirole Hcl) 0.5 Mg Tablet 1 Tab PO BID Ventress 5-325 Tablet (Acetaminophen/Hydrocodone Bitart) 1 Each Tablet 1 Tab PO PRN Q4HRS PRN Given dose at 1:45 pm May take again after 9:45 Vitals/I & O Vital Sign - Last 24 Hours 05/16/20 05/16/20 05/16/20 05/16/20 15:00 18:14 19:00 22:00 Temp 98.2 100.8 98.2 100.8 Pulse 98 90 Resp 24 20 20 B/P (MAP) 154/72 (99) 136/67 (90) Pulse Ox 91 93 93 O2 Delivery Room Air Room Air Room Air Room Air O2 Flow Rate 2.0 2.0 05/16/20 05/17/20 05/17/20 05/17/20 23:15 03:00 07:00 08:00 Temp 99.9 97.7 98.4 99.9 97.7 98.4 Pulse 98 85 91 Resp 20 20 19 B/P (MAP) 128/48 (74) 123/60 (81) 153/65 (94) Pulse Ox 90 95 92 O2 Delivery Nasal Cannula Nasal Cannula Room Air O2 Flow Rate 2.0 2.0 05/17/20 05/17/20 11:00 12:24 Temp 97.9 97.9 Pulse 82 Resp 17 19 B/P (MAP) 124/70 (88) Pulse Ox 97 93 O2 Delivery Room Air Room Air Justicifation of Admission Dx: Justifications for Admission: Justification of Admission Dx: N/A HARISH JONES MD May 17, 2020 13:02
--- NOTE | 2020-05-17 13:13 | NUR ---
DISCHARGE INSTRUCTIONS GIVEN, QUESTIONS AND CONCERNS ANSWERED, PATIENT AND SPOUSE AT THE BEDSIDE VERBALIZED UNDERSTANDING OF DISCHARGE INFORMATION INCLUDING TAKING ALL MEDICATIONS INSTRUCTED AND FOLLOWING UP WITH HER PRIMARY PROVIDER AND OTHER CONSULTS INSTRUCTED, SALINE LOCK REMOVED FROM PATIENTS' RIGHT ANTICUBITAL AREA PER PIPE LINE WALKER, BANDAGE APPLIED, PATIENT TOLERATED PROCEDURE WITHOUT COMPLAINTS.
--- NOTE | 2020-05-17 13:35 | NUR ---
SW following for discharge planning. Spoke with RN and reviewed chart. Pt to discharge home today, self-care. No further SW needs at this time.
--- NOTE | 2020-05-17 13:52 | NUR ---
PATIENT LEAVES THE UNIT PER W/C AND ACCOMPANIED BY THIS SPIRITS MODEL AND HER SPOUSE, EMOTIONAL SUPPORT GIVEN, FOLLOW UP .APPOINTMENTS ENCOURAGED
--- NOTE | 2020-05-19 09:50 | NUR ---
IP: Attempted to contact pt concerning COVID results. No answer. Left a voicemail to return the call.
--- NOTE | 2020-05-24 11:14 | NUR ---
IP: Pt returned call, informed her of the negative COVID test. pt verbalized understanding.
== END 2020-05-17 13:50 | disposition home or self-care (01) | DRG 552 ==
LOC: ER 19:32 → 6 SOUTH 22:27
PROVIDERS: ADMIT Internal Medicine; ATTEND Internal Medicine
DX: M54.16 Radiculopathy, lumbar region (principal); I50.32 Chronic diastolic (congestive) heart failure; M79.7 Fibromyalgia; E78.00 Pure hypercholesterolemia, unspecified; I11.0 Hypertensive heart disease with heart failure; E11.40 Type 2 diabetes mellitus with diabetic neuropathy, unspecified; G25.81 Restless legs syndrome; G89.29 Other chronic pain; E66.9 Obesity, unspecified; Z68.35 Body mass index [BMI] 35.0-35.9, adult; Z53.20 Procedure and treatment not carried out because of patient's decision for unspecified reasons; E78.5 Hyperlipidemia, unspecified; E87.6 Hypokalemia; I50.9 Heart failure, unspecified; R32 Unspecified urinary incontinence; Z90.710 Acquired absence of both cervix and uterus; Z90.49 Acquired absence of other specified parts of digestive tract; Z95.0 Presence of cardiac pacemaker; Z88.0 Allergy status to penicillin; Z88.2 Allergy status to sulfonamides; Z88.8 Allergy status to other drugs, medicaments and biological substances; Z83.3 Family history of diabetes mellitus
CPT/HCPCS: 36415; 72131; 80053; 81001; 82962; 85007; 85025; 87086; 87426; 93005; 96374; 96375; 99285; J1170; J1815; J2405; J2930; J3010; U0003; G0378

== ENCOUNTER → 2020-06-29 | Outpatient (CLI) | payer MEDICARE ==
[~2020-06-29] MED LIST changes: +B CO1TAB30 PO; +CHOL500021 PO; +DICY10CA3 PO; -MIRT-7 PO; +MIRT15TA3 PO; +OMEP20TA8 PO; +TONIC WATER
--- NOTE | 2020-06-29 16:49 | CARD ---
MR#: [id number] Date of Study: 06/29/2020 Ordering Physician: GARRY JIMENEZ, Referring Physician: GARRY JIMENEZ, Tech: Kimberlyn Parnell [facility] APPROVED REPORT EXAM: Two-dimensional and M-mode echocardiogram with Doppler and color Doppler. Other Information Quality : Good INDICATION Dyspnea Pacemaker 2D DIMENSIONS RVDd3.0 (2.9-3.5cm)Left Atrium(2D)4.5 (1.6-4.0cm) IVSd1.2 (0.7-1.1cm)Aortic Root(2D)3.2 (2.0-3.7cm) LVDd4.8 (3.9-5.9cm)LVOT Diameter2.0 (1.8-2.4cm) PWd1.2 (0.7-1.1cm)LVDs3.9 (2.5-4.0cm) FS (%) 25.0 %SV42.0 ml LVEF(%)55.0 (>50%) Aortic Valve AoV Peak Ayden.146.3cm/sAoV VTI29.1cm AO Peak GR.8.6mmHgLVOT Peak Ayden.112.4cm/s AO Mean GR.5mmHgAVA (VMAX)2.41cm2 NORMA (VTI)2.30cm2 Mitral Valve MV E Pqqahzhe771.6cm/sMV DECEL QTRC25dr MV A Fgfpxdcc106.8cm/sE/A Ratio0.8 Tricuspid Valve TR P. Hoafdiun124hn/sRAP LHGDUOSV7fiFd TR Peak Gr.40phNfNGBS73epCi LEFT VENTRICLE The left ventricle is normal size. There is mild concentric left ventricular hypertrophy. The left ve ntricular systolic function is normal. The Ejection Fraction is 55-60%. Apical motion consistent with pacemaker activation. Transmitral Doppler flow pattern is Grade I-abnormal relaxation pattern. RIGHT VENTRICLE The right ventricle is normal size. The right ventricular systolic function is normal. There is a pac emaker lead in the right ventricle. ATRIA The left atrium is mildly dilated. The right atrium size is normal. A pacemaker is seen in the right atrium consistent with history. The interatrial septum is intact with no evidence for an atrial septa l defect or patent foramen ovale as noted on 2-D or Doppler imaging. AORTIC VALVE The aortic valve is calcified but opens well. Doppler and Color Flow revealed trace aortic regurgitat ion. There is no significant aortic valvular stenosis. MITRAL VALVE The mitral valve is calcified but opens well. Mitral annular calcification is mild. There is no evide nce of mitral valve prolapse. There is no mitral valve stenosis. Doppler and Color-flow revealed mild mitral regurgitation. TRICUSPID VALVE The tricuspid valve is normal in structure and function. Doppler and Color Flow revealed mild tricusp id regurgitation. There is moderate pulmonary hypertension. The PA pressure was estimated at 61 mmHg. There is no tricuspid valve stenosis. PULMONIC VALVE The pulmonic valve is not well visualized. Doppler and Color Flow revealed trace pulmonic valvular re gurgitation. There is no pulmonic valvular stenosis. GREAT VESSELS The aortic root is normal in size. The ascending aorta is normal in size. The IVC is normal in size a nd collapses <50% with inspiration. PERICARDIAL EFFUSION There is no evidence of significant pericardial effusion. Critical Notification Critical Value: No <Conclusion> The left ventricular systolic function is normal. The Ejection Fraction is 55-60%. Transmitral Doppler flow pattern is Grade I-abnormal relaxation pattern. Pacer lead noted RA/RV. Mild mitral regurgitation. Mild tricuspid regurgitation. There is moderate pulmonary hypertension. The PA pressure was estimated at 61 mmHg. There is no evidence of significant pericardial effusion. Signed by : Dimitris Wiggins, Electronically Approved : 06/29/2020 16:48:40
--- NOTE | 2020-06-30 10:10 | RAD ---
MR#: [id number] Date of Study: 06/29/2020 Ordering Physician: GARRY JIMENEZ, Referring Physician: GARRY JIMENEZ, Tech: Azar Medina MBA, RDMS, RVT, RDCS, RTR APPROVED REPORT Patient Location : OUT-PATIENT Indications Lower Extremity Edema : Bilateral Findings The right great saphenous vein measures 5.3 mm and the left great saphenous vein measures 7 mm. The bilateral greater and lesser saphenous veins did not reveal any evidence of reflux. Grossly no evide nce of thrombus is noted at the bilateral saphenofemoral junctions on limited images. Critical Notification Critical Value: No <Conclusion> 1. Negative for reflux in the bilateral greater and lesser saphenous veins Signed by : Roni Diego, Electronically Approved : 06/30/2020 10:09:48
--- NOTE | 2020-06-30 10:12 | RAD ---
MR#: [id number] Date of Study: 06/29/2020 Ordering Physician: GARRY JIMENEZ, Referring Physician: GARRY JIMENEZ, Tech: Azar Medina MBA, RDMS, RVT, RDCS, RTR APPROVED REPORT Patient Location: OUT-PATIENT Indications Claudication:Bilaterally VELOCITY AND DOPPLER WAVEFORM ANALYSIS RIGHT cm/secWaveformSeverity LEFT cm/secWaveform Severity dCFA 147.0BiphasicdCFA 143.0Biphasic Prof Fem Art. 99.0BiphasicProf Fem Art. 77.0Biphasic Fem Art Prox. 155.0BiphasicFem Art Prox. 190.0Biphasic Fem Art Mid. 147.0BiphasicFem Art Mid. 186.0Triphasic Fem Art Dist. 137.0BiphasicFem Art Dist. 182.0Triphasic Pop Art(Fossa) 133.0BiphasicPop Art(AK) 139.0Biphasic STUMPER FELLER Prox. 108.0TriphasicPTA Prox. 126.0Monophasic STUMPER FELLER Dist. 149.0TriphasicPTA Dist. 165.0Monophasic MIMA Prox. 81.0BiphasicATA Prox. 93.0Triphasic DPA 84MonophasicDPA 122Monophasic Findings Grayscale images of the bilateral lower extremity arterial vessels demonstrates moderate diffuse athe rosclerotic plaque and intimal hyperplasia. On the right side there are mostly triphasic and biphasic waveforms without any significant stenosis above the knee. The peroneal artery is not well visualized. The posterior tibial artery demonstrate s mildly elevated velocities both these are in a triphasic wave pattern and likely not suggestive of any significant stenosis. The anterior tibial artery is grossly unremarkable. On the left side there are mildly elevated velocities at the level of the proximal and mid superficia l femoral artery but no focal high-grade stenosis identified with triphasic waveforms above the knee. Below the knee there are monophasic waveforms in the posterior tibial artery suggestive of 50% sten osis. The peroneal artery again is not well visualized. No obvious pathology is noted in the anteri or tibial artery. There is likely a greater than 50% stenosis involving the left dorsalis pedis alexa ry. Critical Notification Critical Value: No <Conclusion> 1. No significant above-knee disease bilaterally 2. Probable small vessel disease below the knee. No focal high-grade obstruction identified. Signed by : Roni Diego, Electronically Approved : 06/30/2020 10:11:59
== END ==
LOC: ECHO 10:35
PROVIDERS: ATTEND Internal Medicine Cardiovascular Disease
DX: I08.3 Combined rheumatic disorders of mitral, aortic and tricuspid valves (principal); I27.20 Pulmonary hypertension, unspecified; I70.293 Other atherosclerosis of native arteries of extremities, bilateral legs
CPT/HCPCS: 93306; 93925; 93970

== ENCOUNTER 2020-07-09 05:22 | Emergency (ER) | payer MEDICARE ==
[~2020-07-09] VITALS: Ht 160 cm; Wt 86.4 kg
[2020-07-09] MEDS ORDERED: MORPHINE SULFATE 4 MG/ML VIAL. IV ONE (06:00)
--- NOTE | 2020-07-09 06:09 | PHYS DOC ---
Past Medical History Past Medical History: Diabetes-Type II, Fibromyalgia, High Cholesterol, H ypertension, MRSA, Other Additional Past Medical Histor: neuropathy,RLS,subarachnoid hemorrhage,VERTIGO,EDEMA,low iron, back pain (SHERIF GONZALEZ DO) Past Surgical History: Appendectomy, Cholecystectomy, Hysterectomy, Pacemaker, Other Additional Past Surgical Histo: Multiple back surgeries, carpal tunnel, breast reduction, pain stimulator (SHERIF GONZALEZ DO) Smoking Status: Never Smoker Alcohol Use: Rarely Drug Use: None (SHERIF GONZALEZ DO) General Adult EDM: Chief Complaint: ELBOW PROBLEM HPI: HPI: Patient is a 74 year old female presents with the chief complaint of right arm pain. Prior to arrival patient fell in the kitchen. Patient denies head injury. Patient complaints of right distal arm and elbow pain. On exam RUE NVI. No pain in right shoulder or right wrist. Tender to palpation distal humerus and elbow. (SHERIF GONZALEZ DO) Review of Systems: Review of Systems: Review of systems: Constitutional symptoms- No fever, no chills. Eyes- No Discharge, No Visual Loss Respiratory symptoms- No shortness of breath, No wheezing, No Dyspnea on Exertion Cardiovascular Systems; No chest pain, No Palpitations, No syncope Gastrointestinal symptoms: NO abdominal pain, no nausea, no vomiting or diarrhea. Genitourinary symptoms: No dysuria. Musculoskeletal symptoms: No back pain positive extremity pain. NEUROLOGICAL Symptoms: No headache, no generalized weakness; No focal Weakness (SHERIF GONZALEZ DO) Heart Score: C/O Chest Pain: N/A Risk Factors: Risk Factors: DM, Current or recent (<one month) smoker, HTN, HLP, family hi story of CAD, obesity. Risk Scores: Score 0 - 3: 2.5% MACE over next 6 weeks - Discharge Home Score 4 - 6: 20.3% MACE over next 6 weeks - Admit for Clinical Observation Score 7 - 10: 72.7% MACE over next 6 weeks - Early Invasive Strategies (SHERIF GONZALEZ DO) Current Medications: Current Medications Medications (Trade) Dose Ordered Sig/Marly Start Time Stop Time Status Last Admin Dose Admin Morphine Sulfate (Morphine Sulfate) 4 mg 1X ONCE 07/09/20 06:00 07/09/20 06:01 DC 07/09/20 05:56 4 MG (SHERIF GONZALEZ DO) Allergies: Allergies: Allergies Coded Allergies Type Severity Reaction Last Updated Verified Penicillins Allergy Intermediate hives 12/25/18 Yes Sulfa (Sulfonamide Antibiotics) Allergy Intermediate 12/25/18 Yes clavulanic acid Allergy Intermediate 12/25/18 Yes I S O L A T I O N *CONTACT* Allergy Unknown 12/25/18 Yes (SHERIF GONZALEZ DO) Physical Exam: PE: General: alert, no acute distress. Skin: warm, dry and intact. Head:: Normocephalic, atraumatic. Neck: Trachea midline. Eyes: EOMI, Normal conjunctiva, No drainage CARDIOVASCULAR: Regular rate and rhythm RESPIRATORY: No respiratory distress Back: Full range of motion. MUSCULOSKELETAL: Full range of motion of bilateral lower extremities and left upper extremity, Tenderness to palpaion right distral humerus, Decreased ROM right elbow, RUE NVI GASTROINTESTINAL: Abdomen soft without rebound or guarding. NEUROLOGICAL: Alert and noted to person, place and time. No neurological deficits observed, Baseline Mental status per Psychiatric: Cooperative. Normal judgment (SHERIF GONZALEZ DO) Current Patient Data: Vital Signs: Vital Signs Date Time Temp Pulse Resp B/P (MAP) Pulse Ox O2 Delivery O2 Flow Rate FiO2 07/09/20 05:56 19 97 Room Air 07/09/20 05:23 98.6 87 171/78 (109) 98.6 (SHERIF GONZALEZ DO) EKG: EKG: [] (SHERIF GONZALEZ DO) Radiology/Procedures: Radiology/Procedures: [] (SHERIF GONZALEZ DO) Course & Med Decision Making: Course & Med Decision Making Pertinent Labs and Imaging studies reviewed. (See chart for details) []Patient was evaluated for chief complaint. Work up consisted of Radiologic Imaging. Patient received 4mg Morphine for pain. Nursing advised post morphine patients O2 saturations dropped in the 80's-- imp roved ti 99% with 2L NC. Patient signed out to Dr Milligan-- Disposition pending Xray and Re-evaluation. (SHERIF GONZALEZ DO) Course & Med Decision Making I assumed care of this patient at 0600. Briefly this is a 74-year-old female with a mechanical fall recently had elbow injury. X-rays reviewed and unremarkable. At this time will discharge (PARKER MILLIGAN MD) Dragon Disclaimer: Dragon Disclaimer: This electronic medical record was generated, in whole or in part, using a voice recognition dictation system. (SHERIF GONZALEZ I DO) Departure Departure Impression: Primary Impression: Fall Additional Impression: Right elbow pain Disposition: HOME / SELF CARE / HOMELESS Condition: GOOD Referrals: LO LEDESMA MD (PCP) Patient Instructions: Elbow Contusion, [id number] Additional Instructions: EMERGENCY DEPARTMENT GENERAL DISCHARGE INSTRUCTIONS Thank you for coming to [facility] Emergency Department (ED) today and trusting us with you care. We trust that you had a positive experience in our Emergency Department. If you wish to speak to the department management, you may call the Director at [phone]. YOUR FOLLOW UP INSTRUCTIONS ARE FOLLOWS: 1. Do you have a private Doctor? If you do not have a private doctor, please ask for a resource list of physicians or clinics that may be able to assist you with follow up care. 2. The Emergency Physicain has interpreted your x-rays. The X-Ray specialist will also review them. If there is a change in the findings, you will be notified in 48 hours when at all possible. 3. A lab test or culture has been done, your results will be reviewed and you will be notified if you need a change in treatment. ADDITIONAL INSTRUCTIONS AND INFORMATION: 1. Your care today has been supervised by a physician who is specially trained in emergency care. Many problems require more than one evaluation for a complete diagnosis and treatment. We recommend that you schedule your follow up appointment as recom mended to ensure complete treatment of you illness or injury. If you are unable to obtain follow up care and continue to have a problem, or if your condition worsens, we recommend that you return to the ED. 2. We are not able to safely determine your condition over the phone nor are we able to give sound medical advice over the phone. For these safety reasons, if you call for medical advice we will ask you to come to the ED for further evaluation. 3. If you have any questions regarding these discharge instructions please call the ED at [phone]. SAFETY INFORMATION: In the interest of safety, wellness, and injury prevention; we encourage you to wear your sealbelt, if you smoke; quite smoking, and we encourage family to use a protective helmet for bicycling and other sporting events that present an increased risk for head injury. IF YOUR SYMPTOMS WORSEN OR NEW SYMPTOMS DEVELOP, OR YOU HAVE CONCERNS ABOUT YOUR CONDITION; OR IF YOUR CONDITION WORSENS WHILE YOU ARE WAITING FOR YOUR FOLLOW UP APPOINTMENT; EITHER CONTACT YOUR PRIMARY CARE DOCTOR, THE PHYSICIAN WHOSE NAME AND NUMBER YOU WERE GIVEN, OR RETURN TO THE ED IMMEDIATELY. SHERIF GONZALEZ DO Jul 09, 2020 06:09 PARKER MILLIGAN MD Jul 09, 2020 08:34
--- NOTE | 2020-07-09 06:50 | RAD ---
Study: 1. XR HUMERUS_RT 2 VIEWS 2. XR ELBOW COMPLETE_RIGHT 3+ VIEWS Indication: Fall. Pain. Comparison: None recently. Findings: Right humerus: No displaced fracture. No malalignment at the acromioclavicular or glenohumeral joints. Right elbow: Cortical irregularity along the radial neck appears secondary to ring osteophyte formation. No large elbow joint effusion to suggest a nondisplaced fracture. The proximal ulna is intact. Chronic changes at the medial and lateral humeral epicondyles. Impression: No displaced fracture or malalignment seen to involve the right humerus or elbow. Electronically signed by: VINICIO BOSS MD (07/09/2020 6:48 AM) [facility]
--- NOTE | 2020-07-09 06:51 | RAD ---
Study: XR CHEST 1V Indication: Cough. Comparison: 04/23/2020 Findings: Dual-lead left chest wall pacer. Stimulator hub projecting over the mid thoracic spine. Partially livan ged lumbar fusion construct. Unchanged cardiomediastinal silhouette and ruben. No focal infiltrate, layering effusion or pneumothor ax. Impression: No acute radiographic abnormality of the chest. Electronically signed by: VINICIO BOSS MD (07/09/2020 6:49 AM) [facility]
[2020-07-09 08:15] VITALS: BP 152/68
== END 2020-07-09 09:05 | disposition home or self-care (01) ==
LOC: ER 05:22
DX: G89.11 Acute pain due to trauma (principal); M79.601 Pain in right arm; M25.521 Pain in right elbow; M79.7 Fibromyalgia; E78.00 Pure hypercholesterolemia, unspecified; E11.40 Type 2 diabetes mellitus with diabetic neuropathy, unspecified; I10 Essential (primary) hypertension; Z86.14 Personal history of Methicillin resistant Staphylococcus aureus infection; Z90.89 Acquired absence of other organs; Z90.49 Acquired absence of other specified parts of digestive tract; Z95.0 Presence of cardiac pacemaker; Z98.890 Other specified postprocedural states; Z88.0 Allergy status to penicillin; Z88.2 Allergy status to sulfonamides; Z88.8 Allergy status to other drugs, medicaments and biological substances; W18.39XA Other fall on same level, initial encounter; Y93.89 Activity, other specified; Y92.89 Other specified places as the place of occurrence of the external cause; Y99.8 Other external cause status
CPT/HCPCS: 71045; 73060; 73080; 96374; 99285; J2270

== ENCOUNTER 2021-02-05 08:39 | Inpatient (IN) | payer MEDICARE ==
[~2021-02-05] VITALS: Ht 160 cm; Wt 85.8 kg
[~2021-02-05 08:39] MED LIST changes: -CLIN150C15 PO; +CLIN150C16 PO; +CYCL10TA19 PO; -CYCL10TA2 PO; -DULO60CA6 PO; +DULO60CA7 PO; -LEVO500T8 PO; +LEVO500T9 PO; +MIRT-7 PO; -MIRT15TA3 PO; +TIZA-75 PO; -TIZA4TAB2 PO
[2021-02-05] MEDS ORDERED: IV NORMAL SALINE 500ML BAG 500 ML IV ONE (11:00)
[2021-02-05] MEDS ORDERED: fentaNYL PF VIAL 100 MCG/2 ML VIAL IVP ONE ×2 (11:00→13:00)
[2021-02-05] MEDS ORDERED: ORPHENADRINE CITRATE 60 MG/2 ML VIAL. IM ONE (11:00)
--- NOTE | 2021-02-05 11:19 | PHYS DOC ---
Past Medical History Past Medical History: Diabetes-Type II, Fibromyalgia, High Cholesterol, H ypertension, MRSA, Other Additional Past Medical Histor: neuropathy,RLS,subarachnoid hemorrhage,VERTIGO,EDEMA,low iron, back pain, Past Surgical History: Appendectomy, Cholecystectomy, Hysterectomy, Pacemaker, Other Additional Past Surgical Histo: Multiple back surgeries, carpal tunnel, breast reduction, pain stimulator Smoking Status: Never Smoker Alcohol Use: Rarely Drug Use: None General Adult EDM: Chief Complaint: LOWER EXT PAIN HPI: HPI: Patient is a 75 year old female who presents with yesterday began having severe charley horses in her calves bilaterally and up into the left hip area. States about 7 weeks ago she had a bad fall and went to [facility] and was seen for that but has "not been the same since". She states while at she was low on potassium and magnesium. She states she has been taking potassium supplement. She last took her hydrocodone at home at 3:00 this morning. Patient has a history of appendectomy, hysterectomy, cholecystectomy, colitis with a bowel resection, pacemaker, pain stimulator in her back and multiple back surgeries, hypertension, high cholesterol, diabetes, fibromyalgia, to some subarachnoid head bleeds, IBS with diarrhea, total AV block. Rating her pain a 10 out of 10. Review of Systems: Review of Systems: Constitutional: Denies fever or chills. [] Eyes: Denies change in visual acuity. [] HENT: Denies nasal congestion or sore throat. [] Respiratory: Denies cough or shortness of breath. [] Cardiovascular: Denies chest pain or edema. [] GI: Denies abdominal pain, nausea, vomiting, bloody stools or diarrhea. [] : Denies dysuria. [] Musculoskeletal: Denies back pain or joint pain. + Bilateral leg pain [] Integument: Denies rash. [] Neurologic: Denies headache, focal weakness or sensory changes. [] Endocrine: Denies polyuria or polydipsia. [] Lymphatic: Denies swollen glands. [] Psychiatric: Denies depression or anxiety. [] Heart Score: C/O Chest Pain: No HEART Score for Chest Pain: HEART Score for Chest Pain Response (Comments) Value History Slighlty/Non-Suspicious 0 Age > 65 2 Risk Factors >3 Risk Factors or Hx CAD 2 Troponin >1-<3x Normal Limit 1 Total 5 Current Medications: Current Medications Medications (Trade) Dose Ordered Sig/Marly Start Time Stop Time Status Last Admin Dose Admin Fentanyl Citrate (Fentanyl 2ml Vial) 25 mcg 1X ONCE 02/05/21 11:00 02/05/21 11:01 DC Orphenadrine Citrate (Norflex) 60 mg 1X ONCE 02/05/21 11:00 02/05/21 11:01 DC Sodium Chloride 500 ml @ 500 mls/hr 1X ONCE 02/05/21 11:00 02/05/21 11:59 Allergies: Allergies: Allergies Coded Allergies Type Severity Reaction Last Updated Verified Penicillins Allergy Intermediate hives 07/18/20 Yes Sulfa (Sulfonamide Antibiotics) Allergy Intermediate 07/18/20 Yes clavulanic acid Allergy Intermediate 07/18/20 Yes I S O L A T I O N *CONTACT* Allergy Unknown 07/18/20 Yes Physical Exam: PE: Constitutional: Well developed, well nourished, no acute distress, non-toxic appearance. [] HENT: Normocephalic, atraumatic, bilateral external ears normal, oropharynx moist, no oral exudates, nose normal. [] Eyes: PERRLA, EOMI, conjunctiva normal, no discharge. [] Neck: Normal range of motion, no tenderness, supple, no stridor. [] Cardiovascular:Heart rate regular rhythm, no murmur [] Lungs & Thorax: Bilateral breath sounds clear to auscultation [] Abdomen: Bowel sounds normal, soft, no tenderness, no masses, no pulsatile masses. [] Skin: Warm, dry, no erythema, no rash. [] Back: No tenderness, no CVA tenderness. [] Extremities: Bilateral calf tenderness, no cyanosis, no clubbing, ROM intact, l ateral lower leg 2+ edema. [] Neurologic: Alert and oriented X 3, normal motor function, normal sensory fu nction, no focal deficits noted. [] Psychologic: Affect normal, judgement normal, mood normal. [] Current Patient Data: Vital Signs: Vital Signs Date Time Temp Pulse Resp B/P (MAP) Pulse Ox O2 Delivery O2 Flow Rate FiO2 02/05/21 10:52 98.5 81 20 147/69 (95) 97 Room Air 98.5 EKG: EK and read by Dr. Johnson as supraventricular rhythm with a possible block no STEMI Radiology/Procedures: Radiology/Procedures: [] Impression: [facility] [address] [place], [place] [id number] IMAGING REPORT Signed PATIENT: GIORGIO LOVEUNT: [id number] : 1945 LOCATION: ER AGE: 75 SEX: F EXAM STATUS: REG ER ORD. PHYSICIAN: JEFERSON ROE APRN REASON: ELEVATED TROPONIN PROCEDURE: PORTABLE CHEST 1V EXAMINATION: Chest radiograph. VIEWS: 1 COMPARISON: 07/09/2020 INDICATION:75 years, Female, elevated troponin. FINDINGS: Stable cardiomegaly. Prominent bilateral ruben with cephalization of pulmonary vessels. No focal consolidation. Possible trace left pleural effusion. No pneumothorax. No acute osseous process. Left chest wall pacemaker device remains unchanged. IMPRESSION: Cardiomegaly with findings suggestive of CHF/volume overload. Electronically signed by: Jennifer Beasley MD (02/05/2021 12:46 PM) [id number] DICTATED and SIGNED BY: JENNIFER BEASLEY MD DATE: 02/05/21 [id number] Course & Med Decision Making: Course & Med Decision Making Pertinent Labs and Imaging studies reviewed. (See chart for details) See HPI. Alert and oriented x4. Ambulatory with help from nursing staff. Patient states her calves are very tender throughout the cramping. Pedal pulses are strong and present. Bilateral lower extremity nonpitting edema 2+. She states this is slightly more than usual. No numbness or tingling. Full range of motion and strength in her extremities bilaterally. Cap refill less than 2 seconds. Patient can wiggle her toes. Patient states she sees Dr. Jc for cardiology and she sees Dr. Pattersno for her back surgeries. 1243: Spoke to Dr. Jc concerning the elevated troponin. He states that since she is not having chest pain or shortness of air that she is probably safe to go home but if the patient felt that she wanted to stay we could. Electrolytes are normal. Her CK is 255. Patient to get a total of 1000 L bolus. Her muscle cramping could be because of dehydration. I am still awaiting a urine from the patient. Patient again denies any current chest pain or shortness of breath. Chest x-ray does show fluid overload, CHF. [] Dragon Disclaimer: Dragon Disclaimer: This electronic medical record was generated, in whole or in part, using a voice recognition dictation system. Departure Departure Impression: Primary Impression: Elevated troponin Additional Impressions: Muscle cramps CHF (congestive heart failure) Qualified Codes: I50.9 - Heart failure, unspecified Disposition: ADMITTED INPATIENT Admitting Physician: MARIKA Condition: STABLE Referrals: LO LEDESMA MD (PCP) JEFERSON ROE OFFICIAL GREETER Feb 05, 2021 11:19
[2021-02-05 11:53] LABS: BASO # 0.1 x10^3/uL (0.0-0.2); BASO % 1 % (0-3); EOS # 0.1 x10^3/uL (0.0-0.7); EOS % 2 % (0-3); HEMATOCRIT 38.3 % (36.0-47.0); HEMOGLOBIN 13.3 g/dL (12.0-15.5); LYMPH # 2.5 x10^3/uL (1.0-4.8); LYMPH % 32 % (24-48); MEAN CORPUSCULAR HEMOGLOBIN 30 pg (25-35); MEAN CORPUSCULAR HGB CONC 35 g/dL (31-37); MEAN CORPUSCULAR VOLUME 86 fL (79-100); MONO # 0.6 x10^3/uL (0.0-1.1); MONO % 7 % (0-9); NEUT # 4.6 x10^3/uL (1.8-7.7); NEUT % 59 % (31-73); PLATELET COUNT 283 x10^3/uL (140-400); RED BLOOD COUNT 4.44 x10^6/uL (3.50-5.40); RED CELL DISTRIBUTION WIDTH 13.4 % (11.5-14.5); WHITE BLOOD COUNT 7.9 x10^3/uL (4.0-11.0)
[2021-02-05 12:02] LABS: CALCIUM 9.1 mg/dL (8.5-10.1); CREATININE 0.9 mg/dL (0.6-1.0); GFR 61.4; POTASSIUM 3.6 mmol/L (3.5-5.1)
[2021-02-05 12:09] LABS: ALBUMIN 3.6 g/dL (3.4-5.0); ALBUMIN/GLOBULIN RATIO 0.9 (1.0-1.7); MAGNESIUM 2.1 mg/dL (1.8-2.4); TOTAL BILIRUBIN 0.2 mg/dL (0.2-1.0); TOTAL PROTEIN 7.6 g/dL (6.4-8.2)
--- NOTE | 2021-02-05 12:49 | RAD ---
EXAMINATION: Chest radiograph. VIEWS: 1 COMPARISON: 07/09/2020 INDICATION:75 years, Female, elevated troponin. FINDINGS: Stable cardiomegaly. Prominent bilateral ruben with cephalization of pulmonary vessels. No focal conso lidation. Possible trace left pleural effusion. No pneumothorax. No acute osseous process. Left chest wall pacemaker device remains unchanged. IMPRESSION: Cardiomegaly with findings suggestive of CHF/volume overload. Electronically signed by: Pattie Beasley MD (02/05/2021 12:46 PM) [id number]
[2021-02-05 13:03] LABS: BILIRUBIN,URINE NEGATIVE (NEG); CLARITY,URINE CLOUDY; COLOR,URINE YELLOW; NITRITE,URINE NEGATIVE (NEG); PH,URINE 5.5 (<5.0-8.0); PROTEIN,URINE NEGATIVE (NEG-TRACE); UROBILINOGEN,URINE 0.2 mg/dL (0.2 mg/dL)
[2021-02-05 13:19] LABS: BACTERIA,URINE FEW /HPF (0-FEW)
[2021-02-05] MEDS ORDERED: ALPRAZolam 0.5 MG TABLET PO PRN (13:30)
[2021-02-05] MEDS ORDERED: MORPHINE SULFATE 2 MG/ML INJ. IVP ONE (14:00)
[2021-02-05] MEDS ORDERED: MORPHINE SULFATE 4 MG/ML INJ. ONE (14:03)
[2021-02-05 14:35] VITALS: BP 143/65
[2021-02-05] MEDS: DICYCLOMINE HCL 10 MG CAPSULE PO SCH ×2 (16:47→21:05)
[2021-02-05] MEDS: glipiZIDE 5 MG TABLET PO SCH (16:47)
[2021-02-05] MEDS: MORPHINE SULFATE 4 MG/ML INJ. IV PRN ×2 (17:07→21:07)
--- NOTE | 2021-02-05 17:36 | RAD ---
EXAMINATION: US BILATERAL LOWEREXTREMITY VENOUS DOPPLER (LOWER EXTREMITY VENOUS ULTRASOUND) CLINICAL HISTORY: SWELLING, CALF TENDERNESS/ ATTEMPTED TECHNIQUE: Sonographic grayscale images obtained of the bilateral lower extremity deep venous systems with color flow Doppler, compression, and augmentation techniques as indicated. Images obtained and stored in a permanent archive. COMPARISON: None FINDINGS: RIGHT: No evidence of absent flow or incompressibility within the common femoral vein, femoral vein, or popl iteal vein. Visualized calf veins appear patent on limited evaluation. LEFT: No evidence of absent flow or incompressibility within the common femoral vein, femoral vein, or popl iteal vein. Visualized calf veins appear patent on limited evaluation. IMPRESSION: No evidence of bilateral lower extremity DVT. Electronically signed by: Eric Allan DO (02/05/2021 5:33 PM) PANCHITO
[2021-02-05 19:03] VITALS: BP 148/62
[2021-02-05] MEDS: rOPINIRole 0.25 MG TABLET. PO SCH (21:05)
[2021-02-05] MEDS: traZODone 50 MG TABLET. PO SCH (21:05)
[2021-02-05] MEDS: GABAPENTIN 300 MG CAPSULE. PO SCH (21:06)
--- NOTE | 2021-02-05 21:14 | PDOC1 ---
History and Physical Date of Service: DOS: DATE: 02/05/21 TIME: 21:10 Chief Complaint: Chief Complain: lower extremity pain History of Present Illness: HPI: Patient is a 75 year old female who presents with yesterday began having severe pain in her calves bilaterally and up into the left hip area. States about 7 weeks ago she had a bad fall and went to [facility] and was seen for that but has "not been the same since". She states while at she was low on potassium and magnesium. She states she has been taking potassium supplement. She last took her hydrocodone at home at 3:00 this morning. Patient has a history of appendectomy, hysterectomy, cholecystectomy, colitis with a bowel resection, pacemaker, pain stimulator in her back and multiple back surgeries, h ypertension, high cholesterol, diabetes, fibromyalgia, to some subarachnoid head bleeds, IBS with diarrhea, total AV block. Rating her pain a 10 out of 10. Past Medical/Surgical History: PMH/PSH: Past Medical History: Diabetes-Type II, Fibromyalgia, High Cholesterol, Hypertension, MRSA, Other Additional Past Medical Histor: neuropathy,RLS,subarachnoid hemorrhage,VERTIGO,EDEMA,low iron, back pain, Past Surgical History: Appendectomy, Cholecystectomy, Hysterectomy, Pacemaker, Oth Allergies: Allergies: Coded Allergies: Penicillins (Verified Allergy, Intermediate, hives, 07/18/20) Sulfa (Sulfonamide Antibiotics) (Verified Allergy, Intermediate, 07/18/20) clavulanic acid (Verified Allergy, Intermediate, 07/18/20) I S O L A T I O N *CONTACT* (Verified Allergy, Unknown, 07/18/20) mrsa Family History: Family History: Diabetes Social History: Social History: Denies alcohol tobacco or drug use Current Medications: Current Medications Current Medications Fentanyl Citrate (Fentanyl 2ml Vial) 25 mcg 1X ONCE IVP Last administered on 02/05/21at 11:52; Start 02/05/21 at 11:00; Stop 02/05/21 at 11:01; Status DC Sodium Chloride 500 ml @ 500 mls/hr 1X ONCE IV Last administered on 02/05/21at 11:50; Start 02/05/21 at 11:00; Stop 02/05/21 at 11:59; Status DC Orphenadrine Citrate (Norflex) 60 mg 1X ONCE IM Last administered on 02/05/21at 12:00; Start 02/05/21 at 11:00; Stop 02/05/21 at 11:01; Status DC Fentanyl Citrate (Fentanyl 2ml Vial) 50 mcg 1X ONCE IVP Last administered on 02/05/21at 13:15; Start 02/05/21 at 13:00; Stop 02/05/21 at 13:01; Status DC Alprazolam (Xanax) 0.5 mg PRN BID PRN PO ANXIETY; Start 02/05/21 at 13:30 Dicyclomine HCl (Bentyl) 10 mg QID PO Last administered on 02/05/21at 21:05; Start 02/05/21 at 17:00 Gemfibrozil (Lopid) 600 mg DAILY PO ; Start 02/06/21 at 09:00 Trazodone HCl (Desyrel) 50 mg HS PO Last administered on 02/05/21at 21:05; Start 02/05/21 at 21:00 Vitamin B Complex (Pramod B) 1 tab DAILY PO ; Start 02/06/21 at 09:00 Vitamin D (Vitamin D3) 1,000 unit DAILY PO ; Start 02/06/21 at 09:00 Duloxetine HCl (Cymbalta) 60 mg DAILY PO ; Start 02/06/21 at 09:00 Gabapentin (Neurontin) 600 mg HS PO Last administered on 02/05/21at 21:06; Start 02/05/21 at 21:00 Glipizide (Glucotrol) 10 mg BIDBFRMEAL PO Last administered on 02/05/21at 16 :47; Start 02/05/21 at 16:30 Pantoprazole Sodium (Protonix) 40 mg DAILYAC PO ; Start 02/06/21 at 07:30 Ropinirole HCl (Requip) 0.5 mg BID PO Last administered on 02/05/21at 21:05; Start 02/05/21 at 21:00 Linagliptin (Tradjenta) 5 mg DAILY PO ; Start 02/06/21 at 09:00 Morphine Sulfate (Morphine Sulfate) 2 mg 1X ONCE IVP Last administered on 02/05/21at 14:05; Start 02/05/21 at 14:00; Stop 02/05/21 at 14:06; Status DC Morphine Sulfate (Morphine Sulfate) 4 mg STK-MED ONCE .ROUTE ; Start 02/05/21 at 14:03; Stop 02/05/21 at 14:04; Status DC Morphine Sulfate (Morphine Sulfate) 4 mg PRN Q2HR PRN IV PAIN Last administered on 02/05/21at 21:07; Start 02/05/21 at 17:00 Active Scripts Active Reported D3-50 (Cholecalciferol (Vitamin D3)) 50,000 Unit Capsule 10 Mcg PO DAILY B-Complex with C (B Complex with Vitamin C) 1 Each Tablet 1 Each PO DAILY Dicyclomine Hcl 10 Mg Capsule 10 Mg PO QID [Tonic Water] HS Trazodone Hcl 50 Mg Tablet 50 Mg PO HS Omeprazole 20 Mg Tablet.dr 20 Mg PO HS Gemfibrozil 600 Mg Tablet 600 Mg PO DAILY Cymbalta (Duloxetine Hcl) 60 Mg Capsule.dr 1 Cap PO DAILY Januvia (Sitagliptin Phosphate) 100 Mg Tablet 1 Tab PO DAILY Gabapentin 600 Mg Tablet 600 Mg PO HS Glipizide 10 Mg Tablet 10 Mg PO BID Alprazolam 0.5 Mg Tablet 1 Tab PO PRN BID PRN Imodium A-D (Loperamide HCl) 2 Mg Capsule 2 Mg PO TWICE WEEKLY PRN Requip (Ropinirole Hcl) 0.5 Mg Tablet 1 Tab PO BID [place] 5-325 Tablet (Acetaminophen/Hydrocodone Bitart) 1 Each Tablet 1 Tab PO PRN Q4HRS PRN Given dose at 1:45 pm May take again after 9:45 ROS: Review of Systems Review of System Unless noted in HPI 14 point review of systems was negative Physical Exam: Vital Signs: Vital Signs Date Time Temp Pulse Resp B/P (MAP) Pulse Ox O2 Delivery O2 Flow Rate FiO2 02/05/21 21:07 18 95 Room Air 02/05/21 19:03 97.7 75 148/62 (90) 97.7 Physcial Exam: GEN: No apparent distress. Alert and oriented HEENT: Normal cephalic, atraumatic, external auditory canals are patent EYES: Extraocular muscles are intact, pupil are equally round and reactive to light and accommodation MUSCULOSKELETAL: Well developed , well nourished, good range of motion ENDOCRINE: No thyromegaly was palpated LYMPHATICS: No cervical chain or axillary nodes were noted HEMATOPOIETIC: No bruising NECK: Supple, no JVD, no thyromegaly was noted LUNGS: Clear to auscultation in all lung jones without rhonchi or wheezing HEART: RRR, S1, S2 present. Peripheral pulses intact, no obvious murmurs noted ABDOMEN: Soft, nontender. Positive bowel sounds, no organomegaly, normal bowel sounds EXTREMITIES: Without clubbing, cyanosis, or edema. Pedal pulses intact. Negative Homans sign NEUROLOGIC: Normal speech and tone. A&O x 3, moves all extremities, no obvious focal deficits PSYCHIATRIC: Normal affect, normal mood. Stable SKIN: No ulcerations or rashes, good skin turgor, no jaundice VASCULAR: Good capillary refill, neurovascular bundle appears to be intact Labs: Labs: Laboratory Tests Test 02/05/21 11:40 02/05/21 12:45 02/05/21 14:45 02/05/21 16:09 White Blood Count 7.9 x10^3/uL (4.0-11.0) Red Blood Count 4.44 x10^6/uL (3.50-5.40) Hemoglobin 13.3 g/dL (12.0-15.5) Hematocrit 38.3 % (36.0-47.0) Mean Corpuscular Volume 86 fL (79-100) Mean Corpuscular Hemoglobin 30 pg (25-35) Mean Corpuscular Hemoglobin Concent 35 g/dL (31-37) Red Cell Distribution Width 13.4 % (11.5-14.5) Platelet Count 283 x10^3/uL (140-400) Neutrophils (%) (Auto) 59 % (31-73) Lymphocytes (%) (Auto) 32 % (24-48) Monocytes (%) (Auto) 7 % (0-9) Eosinophils (%) (Auto) 2 % (0-3) Basophils (%) (Auto) 1 % (0-3) Neutrophils # (Auto) 4.6 x10^3/uL (1.8-7.7) Lymphocytes # (Auto) 2.5 x10^3/uL (1.0-4.8) Monocytes # (Auto) 0.6 x10^3/uL (0.0-1.1) Eosinophils # (Auto) 0.1 x10^3/uL (0.0-0.7) Basophils # (Auto) 0.1 x10^3/uL (0.0-0.2) Sodium Level 138 mmol/L (136-145) Potassium Level 3.6 mmol/L (3.5-5.1) Chloride Level 99 mmol/L (98-107) Carbon Dioxide Level 30 mmol/L (21-32) Anion Gap 9 (6-14) Blood Urea Nitrogen 18 mg/dL (7-20) Creatinine 0.9 mg/dL (0.6-1.0) Estimated GFR (Cockcroft-Gault) 61.4 BUN/Creatinine Ratio 20 (6-20) Glucose Level 181 mg/dL (70-99) Calcium Level 9.1 mg/dL (8.5-10.1) Magnesium Level 2.1 mg/dL (1.8-2.4) Total Bilirubin 0.2 mg/dL (0.2-1.0) Aspartate Amino Transf (AST/SGOT) 25 U/L (15-37) Alanine Aminotransferase (ALT/SGPT) 25 U/L (14-59) Alkaline Phosphatase 152 U/L (46-116) Creatine Kinase 255 U/L (26-192) Troponin I High Sensitivity 67 ng/L (4-50) 60 ng/L (4-50) FA-Dgl-A-Type Natriuretic Peptide 229 pg/mL (0-124) Total Protein 7.6 g/dL (6.4-8.2) Albumin 3.6 g/dL (3.4-5.0) Albumin/Globulin Ratio 0.9 (1.0-1.7) Urine Collection Type Unknown Urine Color Yellow Urine Clarity Cloudy Urine pH 5.5 (<5.0-8.0) Urine Specific [facility] 1.015 (1.000-1.030) Urine Protein Negative mg/dL (NEG-TRACE) Urine Glucose (UA) Negative mg/dL (NEG) Urine Ketones (Stick) Negative mg/dL (NEG) Urine Blood Negative (NEG) Urine Nitrite Negative (NEG) Urine Bilirubin Negative (NEG) Urine Urobilinogen Dipstick 0.2 mg/dL (0.2 mg/dL) Urine Leukocyte Esterase Moderate (NEG) Urine RBC 1-2 /HPF (0-2) Urine WBC 5-10 /HPF (0-4) Urine Squamous Epithelial Cells Many /LPF Urine Transitional Epithelial Cells Few /LPF Urine Renal Epithelial Cells Few /LPF Urine Bacteria Few /HPF (0-FEW) Urine Mucus Slight /LPF Glucose (Fingerstick) 161 mg/dL (70-99) Test 02/05/21 17:46 02/05/21 20:17 Troponin I High Sensitivity 65 ng/L (4-50) Glucose (Fingerstick) 228 mg/dL (70-99) Laboratory Tests Test 02/05/21 11:40 02/05/21 12:45 02/05/21 14:45 02/05/21 16:09 White Blood Count 7.9 x10^3/uL (4.0-11.0) Red Blood Count 4.44 x10^6/uL (3.50-5.40) Hemoglobin 13.3 g/dL (12.0-15.5) Hematocrit 38.3 % (36.0-47.0) Mean Corpuscular Volume 86 fL (79-100) Mean Corpuscular Hemoglobin 30 pg (25-35) Mean Corpuscular Hemoglobin Concent 35 g/dL (31-37) Red Cell Distribution Width 13.4 % (11.5-14.5) Platelet Count 283 x10^3/uL (140-400) Neutrophils (%) (Auto) 59 % (31-73) Lymphocytes (%) (Auto) 32 % (24-48) Monocytes (%) (Auto) 7 % (0-9) Eosinophils (%) (Auto) 2 % (0-3) Basophils (%) (Auto) 1 % (0-3) Neutrophils # (Auto) 4.6 x10^3/uL (1.8-7.7) Lymphocytes # (Auto) 2.5 x10^3/uL (1.0-4.8) Monocytes # (Auto) 0.6 x10^3/uL (0.0-1.1) Eosinophils # (Auto) 0.1 x10^3/uL (0.0-0.7) Basophils # (Auto) 0.1 x10^3/uL (0.0-0.2) Sodium Level 138 mmol/L (136-145) Potassium Level 3.6 mmol/L (3.5-5.1) Chloride Level 99 mmol/L (98-107) Carbon Dioxide Level 30 mmol/L (21-32) Anion Gap 9 (6-14) Blood Urea Nitrogen 18 mg/dL (7-20) Creatinine 0.9 mg/dL (0.6-1.0) Estimated GFR (Cockcroft-Gault) 61.4 BUN/Creatinine Ratio 20 (6-20) Glucose Level 181 mg/dL (70-99) Calcium Level 9.1 mg/dL (8.5-10.1) Magnesium Level 2.1 mg/dL (1.8-2.4) Total Bilirubin 0.2 mg/dL (0.2-1.0) Aspartate Amino Transf (AST/SGOT) 25 U/L (15-37) Alanine Aminotransferase (ALT/SGPT) 25 U/L (14-59) Alkaline Phosphatase 152 U/L (46-116) Creatine Kinase 255 U/L (26-192) Troponin I High Sensitivity 67 ng/L (4-50) 60 ng/L (4-50) JN-Cww-A-Type Natriuretic Peptide 229 pg/mL (0-124) Total Protein 7.6 g/dL (6.4-8.2) Albumin 3.6 g/dL (3.4-5.0) Albumin/Globulin Ratio 0.9 (1.0-1.7) Urine Collection Type Unknown Urine Color Yellow Urine Clarity Cloudy Urine pH 5.5 (<5.0-8.0) Urine Specific [facility] 1.015 (1.000-1.030) Urine Protein Negative mg/dL (NEG-TRACE) Urine Glucose (UA) Negative mg/dL (NEG) Urine Ketones (Stick) Negative mg/dL (NEG) Urine Blood Negative (NEG) Urine Nitrite Negative (NEG) Urine Bilirubin Negative (NEG) Urine Urobilinogen Dipstick 0.2 mg/dL (0.2 mg/dL) Urine Leukocyte Esterase Moderate (NEG) Urine RBC 1-2 /HPF (0-2) Urine WBC 5-10 /HPF (0-4) Urine Squamous Epithelial Cells Many /LPF Urine Transitional Epithelial Cells Few /LPF Urine Renal Epithelial Cells Few /LPF Urine Bacteria Few /HPF (0-FEW) Urine Mucus Slight /LPF Glucose (Fingerstick) 161 mg/dL (70-99) Test 02/05/21 17:46 02/05/21 20:17 Troponin I High Sensitivity 65 ng/L (4-50) Glucose (Fingerstick) 228 mg/dL (70-99) Assessment/Plan Assessment/Plan Lower extremity pain secondary to dehydration versus electrolyte abnormalities versus CHF exacerbation troponinemia versus restless leg syndrome? Vitamin D deficiency? -Patient presenting with lower extremity pain. -Troponin in ER elevated. Continue to trend -Cardiology consult -correct electrolyte abnormalities -PT/OT -check vitamin D -resume home meds -dvt prophylaxis Justifications for Admission Other Justification ZOË WHITAKER MD Feb 05, 2021 21:14
--- NOTE | 2021-02-05 21:51 | NUR ---
Patient received pain medication and was sleeping. O2 saturation dropped to 85% on room air. Woke Patient up and told her her oxygen level dropped with sleeping post pain medication. Informed her of need for oxygen when sleeping. 2 Liters nasal cannula oxygen placed on Patient.Oxygen saturation increased to 93%.
[2021-02-05 23:02] VITALS: BP 134/63
--- NOTE | 2021-02-06 02:14 | EKG ---
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
[2021-02-06 02:55] VITALS: BP 135/61
[2021-02-06 07:00] VITALS: BP 173/84
[2021-02-06] MEDS: PANTOPRAZOLE 40 MG TABLET.DR. PO SCH (08:18)
[2021-02-06] MEDS: glipiZIDE 5 MG TABLET PO SCH ×2 (08:18→15:45)
[2021-02-06] MEDS: DICYCLOMINE HCL 10 MG CAPSULE PO SCH ×4 (08:18→22:15)
[2021-02-06] MEDS: GEMFIBROZIL 600 MG TABLET. PO SCH (08:19)
[2021-02-06] MEDS: VITAMIN B COMPLEX TABLET. PO SCH (08:19)
[2021-02-06] MEDS: LINAGLIPTIN 5 MG TABLET PO SCH (08:19)
[2021-02-06] MEDS: CHOLECALCIFEROL (VITAMIN D3) 1,000 UNIT TABLET PO SCH (08:19)
[2021-02-06] MEDS: DULoxetine HCL 30 MG CAPSULE.DR PO SCH (08:19)
[2021-02-06] MEDS: rOPINIRole 0.25 MG TABLET. PO SCH ×2 (08:19→22:15)
[2021-02-06] MEDS ORDERED: FURO-68 PO (10:03)
[2021-02-06 10:50] VITALS: BP 149/66
--- NOTE | 2021-02-06 10:50 | EKG ---
[facility] [address] [place] [address] Test Date: 2021-02-06 Test Time: 10:46:23 Pat Name: GIORGIO LOVE Department: Room: [facility] Gender: F Annual Giving Director: BASILIA : 1945 Requested By: MANJIT BATES Order Number: [id number] Reading MD: Manjit Bates Measurements Intervals [place] Rate: 80 P: 0 ME: 232 QRS: 110 QRSD: 140 T: -23 QT: 396 QTc: 460 Interpretive Statements V PACED Electronically Signed On 02-13-2021 11:35:56 REGISTERED NURSE OBSTETRICS by Manjit Bates
[2021-02-06] MEDS: HYDROcodone/APAP 5/325MG 1 TAB TABLET PO PRN ×2 (11:08→16:41)
--- NOTE | 2021-02-06 11:13 | NUR ---
SS following for discharge planning. SS reviewed pt chart and discussed with pt RN. Pt is from home with spouse and is currently requiring oxygen at two liters nasal canula. Pt does not have home oxygen. Cardiology consulted. Pt had home healthcare services at home through [facility], ; fax [phone]. SS will continue to follow for discharge planning.
--- NOTE | 2021-02-06 11:20 | PDOC2 ---
KENZIEART KING JAUN 02/06/21 1120: CARDIAC CONSULT DATE OF CONSULT Date of Consult DATE: 02/06/21 TIME: 11:18 REASON FOR CONSULT Reason for Consult: Elevated troponin REFERRING PHYSICIAN Referring Physician: Eveline Adams APRN SOURCE Source: Chart review, Patient HISTORY OF PRESENT ILLNESS HISTORY OF PRESENT ILLNESS This is a 75 yo female who presented secondary to cramping in her bilateral LE. Patient reports h/o intermittent cramps. Normally comes to the ED for "injection" and cramps resolved. This has also occurred in the setting of hypokalemia. Troponin noted to be mildly elevated, which prompted this consult. Patient has extensive degenerative spine disease and has had multiple back surgeries and spinal implant. Reports having significant fall 5 weeks ago and was treated at [facility]. Reports she has not been the same since. Reports soreness in her jaw. Does reports some shortness of breath with exertion, but no specific chest pain. No recent illness or fevers. Reports compliance with medications. PAST MEDICAL HISTORY Past Medical History Cardiovascular: CAD (mild single vessel LAD disease on cath 09/2013 of < 20%), HTN, Other (CHB/SSS with Biotronik PPM) Pulmonary: Other ([facility]) CENTRAL NERVOUS SYSTEM: Periperal neuropathy (and restless legs), Other (cerebral hemorrhage, SDH) GI: GERD, Irritable bowel disease Heme/Onc: Anemia NOS Psych: Anxiety, Depression Musculoskeletal: low back pain, Other (spinal stenosis), multiple falls Rheumatologic: Fibromyalgia Endocrine: Diabetes PAST SURGICAL HISTORY Past Surgical History Pacemaker (Biotronik), Cholecystectomy, Cataract Removal, Hysterectomy, Colectomy, Other (multiple back surgeries; carpal tunnel release; breast reduction; implant spinal cord stimulator) FAMILY HISTORY Family History: Adopted SOCIAL HISTORY Social History Smoke: No ALCOHOL: none Drugs: None CURRENT MEDICATIONS CURRENT MEDICATIONS Current Medications Medications (Trade) Dose Ordered Sig/Marly Route PRN Reason Start Time Stop Time Status Last Admin Dose Admin Fentanyl Citrate (Fentanyl 2ml Vial) 50 mcg 1X ONCE IVP 02/05/21 13:00 02/05/21 13:01 DC 02/05/21 13:15 Dicyclomine HCl (Bentyl) 10 mg QID PO 02/05/21 17:00 02/06/21 08:18 Gemfibrozil (Lopid) 600 mg DAILY PO 02/06/21 09:00 02/06/21 08:19 Trazodone HCl (Desyrel) 50 mg HS PO 02/05/21 21:00 02/05/21 21:05 Vitamin B Complex (Pramod B) 1 tab DAILY PO 02/06/21 09:00 02/06/21 08:19 Vitamin D (Vitamin D3) 1,000 unit DAILY PO 02/06/21 09:00 02/06/21 08:19 Duloxetine HCl (Cymbalta) 60 mg DAILY PO 02/06/21 09:00 02/06/21 08:19 Gabapentin (Neurontin) 600 mg HS PO 02/05/21 21:00 02/05/21 21:06 Glipizide (Glucotrol) 10 mg BIDBFRMEAL PO 02/05/21 16:30 02/06/21 08:18 Pantoprazole Sodium (Protonix) 40 mg DAILYAC PO 02/06/21 07:30 02/06/21 08:18 Ropinirole HCl (Requip) 0.5 mg BID PO 02/05/21 21:00 02/06/21 08:19 Linagliptin (Tradjenta) 5 mg DAILY PO 02/06/21 09:00 02/06/21 08:19 Morphine Sulfate (Morphine Sulfate) 2 mg 1X ONCE IVP 02/05/21 14:00 02/05/21 14:06 DC 02/05/21 14:05 Morphine Sulfate (Morphine Sulfate) 4 mg PRN Q2HR PRN IV PAIN 02/05/21 17:00 02/05/21 21:07 Amlodipine Besylate (Norvasc) 5 mg 1X ONCE PO 02/06/21 07:45 02/06/21 07:47 DC 02/06/21 08:18 Acetaminophen/ Hydrocodone Bitart (Lortab 5/325) 1 tab PRN Q4HRS PRN PO PAIN 02/06/21 11:00 02/06/21 11:08 ALLERGIES ALLERGIES: Coded Allergies: Penicillins (Verified Allergy, Intermediate, hives, 07/18/20) Sulfa (Sulfonamide Antibiotics) (Verified Allergy, Intermediate, 07/18/20) clavulanic acid (Verified Allergy, Intermediate, 07/18/20) I S O L A T I O N *CONTACT* (Verified Allergy, Unknown, 07/18/20) mrsa ROS Review of System 14 point ROS conducted with pertinent positives noted above in HPI PHYSICAL EXAM General: Alert, Oriented X3, Cooperative, No acute distress HEENT: Atraumatic Lungs: Clear to auscultation Heart: Regular rate Abdomen: Soft Extremities: Other (trace pedal edema ) Skin: No breakdown, No significant lesion Neuro: Normal speech Psych/Mental Status: Mental status NL, Mood NL MUSCULOSKELETAL: Osteoarthritic changes both hands VITALS/I&O VITALS/I&O: Vital Signs Date Time Temp Pulse Resp B/P (MAP) Pulse Ox O2 Delivery O2 Flow Rate FiO2 02/06/21 11:08 96 Nasal Cannula 2.0 02/06/21 10:50 99.2 82 18 149/66 (93) 99.2 I & O 02/05/21 02/05/21 02/06/21 15:00 23:00 07:00 Intake Total 500 ml 540 ml 200 ml Output Total 1 ml Balance 500 ml 539 ml 200 ml LABS Lab: Laboratory Tests Test 02/05/21 11:40 02/05/21 12:45 02/05/21 14:45 02/05/21 16:09 White Blood Count 7.9 x10^3/uL (4.0-11.0) Red Blood Count 4.44 x10^6/uL (3.50-5.40) Hemoglobin 13.3 g/dL (12.0-15.5) Hematocrit 38.3 % (36.0-47.0) Mean Corpuscular Volume 86 fL (79-100) Mean Corpuscular Hemoglobin 30 pg (25-35) Mean Corpuscular Hemoglobin Concent 35 g/dL (31-37) Red Cell Distribution Width 13.4 % (11.5-14.5) Platelet Count 283 x10^3/uL (140-400) Neutrophils (%) (Auto) 59 % (31-73) Lymphocytes (%) (Auto) 32 % (24-48) Monocytes (%) (Auto) 7 % (0-9) Eosinophils (%) (Auto) 2 % (0-3) Basophils (%) (Auto) 1 % (0-3) Neutrophils # (Auto) 4.6 x10^3/uL (1.8-7.7) Lymphocytes # (Auto) 2.5 x10^3/uL (1.0-4.8) Monocytes # (Auto) 0.6 x10^3/uL (0.0-1.1) Eosinophils # (Auto) 0.1 x10^3/uL (0.0-0.7) Basophils # (Auto) 0.1 x10^3/uL (0.0-0.2) Sodium Level 138 mmol/L (136-145) Potassium Level 3.6 mmol/L (3.5-5.1) Chloride Level 99 mmol/L (98-107) Carbon Dioxide Level 30 mmol/L (21-32) Anion Gap 9 (6-14) Blood Urea Nitrogen 18 mg/dL (7-20) Creatinine 0.9 mg/dL (0.6-1.0) Estimated GFR (Cockcroft-Gault) 61.4 BUN/Creatinine Ratio 20 (6-20) Glucose Level 181 mg/dL (70-99) H Calcium Level 9.1 mg/dL (8.5-10.1) Magnesium Level 2.1 mg/dL (1.8-2.4) Total Bilirubin 0.2 mg/dL (0.2-1.0) Aspartate Amino Transferase (AST) 25 U/L (15-37) Alanine Aminotransferase (ALT) 25 U/L (14-59) Alkaline Phosphatase 152 U/L (46-116) H Creatine Kinase 255 U/L (26-192) H Troponin I High Sensitivity 67 ng/L (4-50) H 60 ng/L (4-50) H UV-Ptd-R-Type Natriuretic Peptide 229 pg/mL (0-124) H Total Protein 7.6 g/dL (6.4-8.2) Albumin 3.6 g/dL (3.4-5.0) Albumin/Globulin Ratio 0.9 (1.0-1.7) L 25-Hydroxy Vitamin D Total 33.9 ng/mL (30-100) Urine Collection Type Unknown Urine Color Yellow Urine Clarity Cloudy Urine pH 5.5 (<5.0-8.0) Urine Specific [place] 1.015 (1.000-1.030) Urine Protein Negative mg/dL (NEG-TRACE) Urine Glucose (UA) Negative mg/dL (NEG) Urine Ketones (Stick) Negative mg/dL (NEG) Urine Blood Negative (NEG) Urine Nitrite Negative (NEG) Urine Bilirubin Negative (NEG) Urine Urobilinogen Dipstick 0.2 mg/dL (0.2 mg/dL) Urine Leukocyte Esterase Moderate (NEG) Urine RBC 1-2 /HPF (0-2) Urine WBC 5-10 /HPF (0-4) Urine Squamous Epithelial Cells Many /LPF Urine Transitional Epithelial Cells Few /LPF Urine Renal Epithelial Cells Few /LPF Urine Bacteria Few /HPF (0-FEW) Urine Mucus Slight /LPF Glucose (Fingerstick) 161 mg/dL (70-99) H Test 02/05/21 17:46 02/05/21 20:17 02/06/21 07:31 02/06/21 08:05 Troponin I High Sensitivity 65 ng/L (4-50) H 60 ng/L (4-50) H Glucose (Fingerstick) 228 mg/dL (70-99) H 119 mg/dL (70-99) H Laboratory Tests 02/05/21 11:40 Laboratory Tests 02/05/21 11:40 ECHOCARDIOGRAM ECHOCARDIOGRAM <Conclusion> The left ventricular systolic function is normal. The Ejection Fraction is 55-60%. Transmitral Doppler flow pattern is Grade I-abnormal relaxation pattern. Pacer lead noted RA/RV. Mild mitral regurgitation. Mild tricuspid regurgitation. There is moderate pulmonary hypertension. The PA pressure was estimated at 61 mmHg. There is no evidence of significant pericardial effusion. DATE: 06/29/20 [id number] HEART CATH HEART CATH Findings. Hemodynamics. LV pressure 142/6, 16. Aortic root pressure 140/62. Coronaries. Left main. The left main was a long vessel with no lesions. Left anterior descending. The LAD was a moderate size vessel with normal distribution. It had a mild mid 15% lesion. Left circumflex. The left circumflex was a moderate size vessel with nondominant distribution. It had no lesions. Right coronary artery. The right coronary was a moderate size vessel. It had dominant distribution. It had no lesions. Left ventriculogram. The left ventricle showed normal left ventricular systolic function with an ejection fraction of 60% or greater. <Conclusion> Minimal disease in the LAD with no lesions greater than 20%. Normal LV systolic function with an ejection fraction of 60% or greater. DATE: 05/23/18 1554 ASSESSMENT/PLAN ASSESSMENT/PLAN 1. LE cramping, pain. K low end 2. Chronic back pain, DDD, fibromyalgia, peripheral neuropathy 3. Trivial troponin elevation; highest high sensitivity trop 67. Suspect type II, demand ischemia. CP free 4. Hx of nonobstructive CAD: [facility] 06/03 with minimal disease in the LAD as noted above. 5. Acute on chronic diastolic CHF; Echo 07/06 with preserved LV systolic function 6. H/o CHB s/p PPM (Biotronik). Device check 12/06 with normal function. Stable lead impedances. No arrhythmias noted. presently 100% v-paced 7. Hypertension; controlled overall 8. Hyperlipidemia 9. Diabetes, II Recommendations Secondary prevention ASA Lipids Echocardiogram Resume Lasix therapy Replace K; keep > 4.0. Increase daily replacement to 20meq. Consider outpatient ischemic evaluation Supportive care GARRY JIMENEZ MD 02/06/21 1741: CARDIAC CONSULT ASSESSMENT/PLAN ASSESSMENT/PLAN Patient seen and examined I agree with our nurse practitioners assessment and plan. LE cramping, pain. K low end. Replace and monitor. Chronic back pain, DDD, fibromyalgia, peripheral neuropathy Trivial troponin elevation; highest high sensitivity trop 67. Suspect type II, demand ischemia. CP free. Continuing medical treatment. Hx of nonobstructive CAD: [facility] 06/03 with minimal disease in the LAD as noted above. Acute on chronic diastolic CHF; Echo 07/06 with preserved LV systolic function. Resume Lasix as above. Monitoring lab. H/o CHB s/p PPM (Biotronik). Device check 12/06 with normal function. Stable lead impedances. No arrhythmias noted. presently 100% v-paced Hypertension; controlled overall Hyperlipidemia Diabetes, II ART ESPINO APRN Feb 06, 2021 11:20 GARRY JIMENEZ MD Feb 06, 2021 17:41
[2021-02-06] MEDS ORDERED: POTASSIUM CHLORIDE 20 MEQ TABLET.ER. PO ONE (12:00)
--- NOTE | 2021-02-06 12:29 | PDOC ---
[employer] PROGRESS NOTE Date of Service DOS: DATE: 02/06/21 TIME: 12:28 Chief Complaint Chief Complaint Fall Leg pain Elevated troponin Elevated blood pressure Diabetes-Type II, Fibromyalgia, High Cholesterol, Hypertension, MRSA, Other neuropathy,RLS,subarachnoid hemorrhage,VERTIGO,EDEMA,low iron, back pain, Appendectomy, Cholecystectomy, Hysterectomy, Pacemaker, Oth History of Present Illness History of Present Illness 02/06/2021 Patient seen and examined Chart reviewed Discussed with RN Discussed with her Vitals/I&O Vitals/I&O: Vital Signs Date Time Temp Pulse Resp B/P (MAP) Pulse Ox O2 Delivery O2 Flow Rate FiO2 02/06/21 11:38 96 Nasal Cannula 2.0 02/06/21 10:50 99.2 82 18 149/66 (93) 99.2 I & O 02/05/21 02/05/21 02/06/21 15:00 23:00 07:00 Intake Total 500 ml 540 ml 200 ml Output Total 1 ml Balance 500 ml 539 ml 200 ml Physical Exam General: Oriented X3 Heart: Regular rate Lungs: Clear Abdomen: Normal bowel sounds Extremities: No clubbing Skin: No rashes Labs Labs: Laboratory Tests Test 02/05/21 12:45 02/05/21 14:45 02/05/21 16:09 02/05/21 17:46 Urine Collection Type Unknown Urine Color Yellow Urine Clarity Cloudy Urine pH 5.5 (<5.0-8.0) Urine Specific [place] 1.015 (1.000-1.030) Urine Protein Negative mg/dL (NEG-TRACE) Urine Glucose (UA) Negative mg/dL (NEG) Urine Ketones (Stick) Negative mg/dL (NEG) Urine Blood Negative (NEG) Urine Nitrite Negative (NEG) Urine Bilirubin Negative (NEG) Urine Urobilinogen Dipstick 0.2 mg/dL (0.2 mg/dL) Urine Leukocyte Esterase Moderate (NEG) Urine RBC 1-2 /HPF (0-2) Urine WBC 5-10 /HPF (0-4) Urine Squamous Epithelial Cells Many /LPF Urine Transitional Epithelial Cells Few /LPF Urine Renal Epithelial Cells Few /LPF Urine Bacteria Few /HPF (0-FEW) Urine Mucus Slight /LPF Troponin I High Sensitivity 60 ng/L (4-50) 65 ng/L (4-50) Glucose (Fingerstick) 161 mg/dL (70-99) Test 02/05/21 20:17 02/06/21 07:31 02/06/21 08:05 02/06/21 11:20 Glucose (Fingerstick) 228 mg/dL (70-99) 119 mg/dL (70-99) 104 mg/dL (70-99) Troponin I High Sensitivity 60 ng/L (4-50) Assessment and Plan Assessmemt and Plan Problems Medical Problems: (1) CHF (congestive heart failure) Status: Acute (2) Elevated troponin Status: Acute (3) Muscle cramps Status: Acute Fall Leg pain Elevated troponin Elevated blood pressure Diabetes-Type II, Fibromyalgia, High Cholesterol, Hypertension, MRSA, Other neuropathy,RLS,subarachnoid hemorrhage,VERTIGO,EDEMA,low iron, back pain, Appendectomy, Cholecystectomy, Hysterectomy, Pacemaker Plan Cardiac monitoring Serial enzymes Serial EKGs Echocardiogram Antihypertensives PT OT Cardiology following Home meds DVT prophylaxis Full code Appreciate subspecialist input Discharge disposition pending Comment Review of Relevant I have reviewed the following items lucy (where applicable) has been applied. Medications: Current Medications Medications (Trade) Dose Ordered Sig/Marly Route PRN Reason Start Time Stop Time Status Last Admin Dose Admin Fentanyl Citrate (Fentanyl 2ml Vial) 50 mcg 1X ONCE IVP 02/05/21 13:00 02/05/21 13:01 DC 02/05/21 13:15 Dicyclomine HCl (Bentyl) 10 mg QID PO 02/05/21 17:00 02/06/21 08:18 Gemfibrozil (Lopid) 600 mg DAILY PO 02/06/21 09:00 02/06/21 08:19 Trazodone HCl (Desyrel) 50 mg HS PO 02/05/21 21:00 02/05/21 21:05 Vitamin B Complex (Pramod B) 1 tab DAILY PO 02/06/21 09:00 02/06/21 08:19 Vitamin D (Vitamin D3) 1,000 unit DAILY PO 02/06/21 09:00 02/06/21 08:19 Duloxetine HCl (Cymbalta) 60 mg DAILY PO 02/06/21 09:00 02/06/21 08:19 Gabapentin (Neurontin) 600 mg HS PO 02/05/21 21:00 02/05/21 21:06 Glipizide (Glucotrol) 10 mg BIDBFRMEAL PO 02/05/21 16:30 02/06/21 08:18 Pantoprazole Sodium (Protonix) 40 mg DAILYAC PO 02/06/21 07:30 02/06/21 08:18 Ropinirole HCl (Requip) 0.5 mg BID PO 02/05/21 21:00 02/06/21 08:19 Linagliptin (Tradjenta) 5 mg DAILY PO 02/06/21 09:00 02/06/21 08:19 Morphine Sulfate (Morphine Sulfate) 2 mg 1X ONCE IVP 02/05/21 14:00 02/05/21 14:06 DC 02/05/21 14:05 Morphine Sulfate (Morphine Sulfate) 4 mg PRN Q2HR PRN IV PAIN 02/05/21 17:00 02/05/21 21:07 Amlodipine Besylate (Norvasc) 5 mg 1X ONCE PO 02/06/21 07:45 02/06/21 07:47 DC 02/06/21 08:18 Acetaminophen/ Hydrocodone Bitart (Lortab 5/325) 1 tab PRN Q4HRS PRN PO PAIN 02/06/21 11:00 02/06/21 11:08 Justifications for Admission Other Justification JIL DAVID III DO Feb 06, 2021 12:29
[2021-02-06 15:00] VITALS: BP 120/58
[2021-02-06] MEDS: IBUPROFEN 400 MG TABLET. PO PRN (15:45)
[2021-02-06 16:25] LABS: CHOLESTEROL/HDL RATIO 5.3
[2021-02-06 18:16] VITALS: BP 131/61
[2021-02-06 22:11] VITALS: BP 144/90
[2021-02-06] MEDS: GABAPENTIN 300 MG CAPSULE. PO SCH (22:15)
[2021-02-06] MEDS: traZODone 50 MG TABLET. PO SCH (22:15)
[2021-02-07] MEDS: HYDROcodone/APAP 5/325MG 1 TAB TABLET PO PRN ×2 (00:44→11:07)
[2021-02-07] MEDS: IBUPROFEN 400 MG TABLET. PO PRN (00:44)
[2021-02-07 02:16] VITALS: BP 146/68
[2021-02-07 07:00] VITALS: BP 184/88
[2021-02-07] MEDS ORDERED: ASPIRIN ENTERIC COATED 81 MG TABLET.DR. PO SCH (08:00)
[2021-02-07] MEDS ORDERED: POTASSIUM CHLORIDE 20 MEQ TABLET.ER. PO SCH (08:00)
[2021-02-07] MEDS: CHOLECALCIFEROL (VITAMIN D3) 1,000 UNIT TABLET PO SCH (08:17)
[2021-02-07] MEDS: PANTOPRAZOLE 40 MG TABLET.DR. PO SCH (08:17)
[2021-02-07] MEDS: DICYCLOMINE HCL 10 MG CAPSULE PO SCH ×2 (08:17→12:30)
[2021-02-07] MEDS: LINAGLIPTIN 5 MG TABLET PO SCH (08:17)
[2021-02-07] MEDS: DULoxetine HCL 30 MG CAPSULE.DR PO SCH (08:17)
[2021-02-07] MEDS: rOPINIRole 0.25 MG TABLET. PO SCH (08:17)
[2021-02-07] MEDS: GEMFIBROZIL 600 MG TABLET. PO SCH (08:17)
[2021-02-07] MEDS: VITAMIN B COMPLEX TABLET. PO SCH (08:18)
[2021-02-07] MEDS: glipiZIDE 5 MG TABLET PO SCH (08:18)
[2021-02-07] MEDS ORDERED: FUROSEMIDE 40 MG TABLET. PO SCH (09:00)
--- NOTE | 2021-02-07 09:37 | PDOC ---
CARDIO Progress Notes Date and Time Date of Service 02/07/21 Time of Evaluation 1040 Subjective Subjective: No Chest Pain, No shortness of breath Vitals Vitals Vital Signs Date Time Temp Pulse Resp B/P (MAP) Pulse Ox O2 Delivery O2 Flow Rate FiO2 02/07/21 08:00 Nasal Cannula 2.0 02/07/21 07:00 97.9 73 17 184/88 (120) 98 97.9 Weight Weight [ ] Input and Output Intake and Output Intake and Output 02/07/21 07:00 Intake Total 750 ml Balance 750 ml Intake Oral 750 ml # Voids 5 # Bowel Movements 1 Laboratory Labs Laboratory Tests Test 02/06/21 11:20 02/06/21 16:19 02/06/21 20:30 02/07/21 07:29 Glucose (Fingerstick) 104 mg/dL (70-99) 236 mg/dL (70-99) 150 mg/dL (70-99) 153 mg/dL (70-99) Microbiology Micro Microbiology 02/05/21 Urine Culture - Final, Complete Physical Exam HEENT: Neck Supple W Full Motion Chest: Symmetric LUNGS: Clear to Auscultation Heart: RRR Abdomen: Soft N/T Extremities: No Edema Neurology: alert, oriented, follow commands Assessment Assessment 1. LE cramping, pain. K low end. resolved 2. Chronic back pain, DDD, fibromyalgia, peripheral neuropathy 3. Trivial troponin elevation; highest high sensitivity trop 67. Suspect type II, demand ischemia. CP free. Echo with preserved LV systolic function. No WMA 4. Hx of nonobstructive CAD: [facility] 06/03 with minimal disease in the LAD as noted above. 5. Acute on chronic diastolic CHF; appears compensated 6. H/o CHB s/p PPM (Biotronik). Device check 12/06 with normal function. Stable lead impedances. No arrhythmias noted. presently 100% v-paced 7. Hypertension; controlled overall 8. Hyperlipidemia 9. Diabetes, II Recommendations Secondary prevention ASA Lasix therapy Consider outpatient ischemic evaluation Supportive care Follow up in our office with Dr. Jc as scheduled. Justicifation of Admission Dx: Justifications for Admission: Justification of Admission Dx: N/A ART ESPINO APRN Feb 07, 2021 09:37
[2021-02-07 10:28] LABS: CALCIUM 8.7 mg/dL (8.5-10.1); CREATININE 0.8 mg/dL (0.6-1.0); GFR 70.3; POTASSIUM 3.7 mmol/L (3.5-5.1)
[2021-02-07 11:00] VITALS: BP 174/101
--- NOTE | 2021-02-07 11:25 | PDOC ---
[employer] PROGRESS NOTE Date of Service DOS: DATE: 02/07/21 TIME: 11:24 Chief Complaint Chief Complaint Fall Leg pain Elevated troponin Elevated blood pressure Diabetes-Type II, Fibromyalgia, High Cholesterol, Hypertension, MRSA, Other neuropathy,RLS,subarachnoid hemorrhage,VERTIGO,EDEMA,low iron, back pain, Appendectomy, Cholecystectomy, Hysterectomy, Pacemaker, Oth History of Present Illness History of Present Illness 02/08/2020 Patient seen exam Discussed the Discussed with her Chart reviewed She described active echo Looks great. We will go ahead and discharge 02/06/2021 Patient seen and examined Chart reviewed Discussed with RN Discussed with her Vitals/I&O Vitals/I&O: Vital Signs Date Time Temp Pulse Resp B/P (MAP) Pulse Ox O2 Delivery O2 Flow Rate FiO2 02/07/21 08:00 Nasal Cannula 2.0 02/07/21 07:00 97.9 73 17 184/88 (120) 98 97.9 I & O 02/06/21 02/06/21 02/07/21 15:00 23:00 07:00 Intake Total 250 ml 300 ml 200 ml Balance 250 ml 300 ml 200 ml Physical Exam General: Alert, Oriented X3, Cooperative, No acute distress Heart: Regular rate Lungs: Clear Abdomen: Soft Extremities: Other (trace pedal edema ) Skin: No breakdown, No significant lesion Labs Labs: Laboratory Tests Test 02/06/21 16:19 02/06/21 20:30 02/07/21 07:29 02/07/21 09:55 Glucose (Fingerstick) 236 mg/dL (70-99) 150 mg/dL (70-99) 153 mg/dL (70-99) Sodium Level 140 mmol/L (136-145) Potassium Level 3.7 mmol/L (3.5-5.1) Chloride Level 102 mmol/L (98-107) Carbon Dioxide Level 31 mmol/L (21-32) Anion Gap 7 (6-14) Blood Urea Nitrogen 12 mg/dL (7-20) Creatinine 0.8 mg/dL (0.6-1.0) Estimated GFR (Cockcroft-Gault) 70.3 Glucose Level 212 mg/dL (70-99) Calcium Level 8.7 mg/dL (8.5-10.1) Magnesium Level 2.0 mg/dL (1.8-2.4) Assessment and Plan Assessmemt and Plan Problems Medical Problems: (1) CHF (congestive heart failure) Status: Acute (2) Elevated troponin Status: Acute (3) Muscle cramps Status: Acute Fall Leg pain Elevated troponin Elevated blood pressure Diabetes-Type II, Fibromyalgia, High Cholesterol, Hypertension, MRSA, Other neuropathy,RLS,subarachnoid hemorrhage,VERTIGO,EDEMA,low iron, back pain, Appendectomy, Cholecystectomy, Hysterectomy, Pacemaker Plan Probable discharge this afternoon for now continue the following; Cardiac monitoring Awaiting echocardiogram report Antihypertensives PT OT Cardiology following Home meds DVT prophylaxis Full code Appreciate subspecialist input Discharge disposition pending but probably home this after Comment Review of Relevant I have reviewed the following items lucy (where applicable) has been applied. Medications: Current Medications Medications (Trade) Dose Ordered Sig/Marly Route PRN Reason Start Time Stop Time Status Last Admin Dose Admin Potassium Chloride (Klor-Con) 40 meq 1X ONCE PO 02/06/21 12:00 02/06/21 12:01 DC 02/06/21 13:13 Ibuprofen (Motrin) 800 mg PRN Q6HRS PRN PO INFLAMMATION 02/06/21 13:30 02/07/21 00:44 Aspirin (Ecotrin) 81 mg DAILYWBKFT PO 02/07/21 08:00 02/07/21 08:17 Furosemide (Lasix) 40 mg DAILY PO 02/07/21 09:00 02/07/21 08:18 Potassium Chloride (Klor-Con) 20 meq DAILYWBKFT PO 02/07/21 08:00 02/07/21 08:18 Justifications for Admission Other Justification JIL DAVID III DO Feb 07, 2021 11:25
[2021-02-07] MEDS ORDERED: ASPI-886 PO (11:29)
[2021-02-07] MEDS ORDERED: HYDR-2761 PO (11:29)
[2021-02-07] MEDS ORDERED: POTA20TA4 PO (11:29)
[2021-02-07] MEDS ORDERED: AMLO10TA4 PO (11:29)
--- NOTE | 2021-02-07 12:05 | DS ---
ADMISSION DIAGNOSIS: Elevated troponin and heart failure. DISCHARGE DIAGNOSES: Resolving [id number] systolic and diastolic heart failure, resolving elevated troponin, suspect demand ischemia, chronic pain, hypertension, history of coronary artery disease, history of permanent pacemaker, hyperlipidemia, diabetes. CONSULTATIONS: Cardiology. PROCEDURE: None. HOSPITAL COURSE: The patient is a pleasant elderly female well known to our service. She presented with some lower extremity pain and we checked lower extremity Dopplers but they were negative; however, she was noted to be hypertensive and had slightly elevated troponins. She was admitted. We have consulted Cardiology. We diuresed her, did an echocardiogram, check serial enzymes, serial EKGs, and today, she looks great. I saw and examined her. Heart tones are normal. Lungs are clear. We plan to discharge. DISPOSITION: Home. ACTIVITY: As tolerated. DIET: Low sodium. DISCHARGE MEDICATIONS: Amlodipine 10 a day, aspirin 81 a day, hydrocodone 5 q.4 p.r.n., potassium 20 a day, Xanax 0.5 b.i.d., vitamins, dicyclomine 10 q.i.d., Cymbalta 60 a day, Lasix 40 a day, gabapentin 600 at bedtime, gemfibrozil 60 a day, glipizide 10 b.i.d., loperamide, omeprazole 20 a day, Requip 0.5 b.i.d., Januvia 100 daily, and trazodone 50 at bedtime. TOTAL TIME: [address]: Nila TID: [id number]
--- NOTE | 2021-02-07 12:09 | SNU/HH DC ---
DISCHARGE WITH HOME HEALTH DISCHARGE INFORMATION: Final Diagnosis: Problems Medical Problems: (1) CHF (congestive heart failure) Status: Acute (2) Elevated troponin Status: Acute (3) Muscle cramps Status: Acute Condition on Discharge: Stable CODE STATUS: Code Status: Full HOME HEALTH: Face to Face: I certify this patient is under my care and that I, or a nurse practitioner or physician's access services assistant working with me, had a face to face encounter that meets the physician face to face encounter requirements with this patient on []. Medical Complications: CHF Alf For: Assess Cardiopulm Status RN For Eval/Treatment: Yes Physical Therapy For: Evalulation/Treatment Speech Language Pathology For: Evaluation/Treatment Home Health Aide For: Self-care RELIABILITY ENGINEER For: Community Resources Pt Meets Homebound Status: Unsteady balance w/ amb, POST DISCHARGE ORDERS: Activity Instructions for Disc: Activity as tolerated Weight Bearing Status after Di: No restrictions Bathing Instructions: Shower-keep dressing dry, No Tub Bath until see DIET AFTER DISCHARGE: Cardiac Wound/Incision Care: No wound care needed CHECKS AFTER DISCHARGE: Checks after discharge: Check blood press - daily, Check blood sugar, ac/hs TREATMENT/EQUIPMENT ORDERS: Adaptive Equipment Issued: None Discharge Respiratory Equipmen: CPAP CERTIFICATION STATEMENT: Certification Statement: Certification Statement: Based on the above finding, I certify that this patient is confined to the home and needs intermittent long term care, physical therapy and/or speech therapy, or continues to need occupational therapy.~ This patient is under my care, and I have initiated the establishment of the plan of care.~ This patient will be followed by myself or a community physician who will periodically review the plan of care. Home Meds Active Scripts Amlodipine Besylate (NORVASC) 10 Mg Tablet, 10 MG PO DAILY for . for 30 Days, #30 TAB Prov:CASTLE,NIAL K III DO 02/07/21 Potassium Chloride (POTASSIUM CHLORIDE ) 20 Meq Tablet.er, 20 MEQ PO DAILYWBKFT for . for 30 Days, #30 TAB.SR Prov:CASTLE,NIAL K III DO 02/07/21 Hydrocodone Bit/Acetaminophen (HYDROCODONE-APAP 5-325 ) 1 Tab Tablet, 1 TAB PO PRN Q4HRS PRN for PAIN for 10 Days, #20 TAB Prov:CASTLE,NIAL K III DO 02/07/21 Aspirin (ASPIRIN EC) 81 Mg Tablet.dr, 81 MG PO DAILYWBKFT for . for 90 Days, #90 TAB.SR Prov:JOANN,NIAL K III DO 02/07/21 Reported Medications Furosemide (LASIX) 40 Mg Tablet, 1 TAB PO DAILY for CHF for 30 Days, #30 TAB 0 Refills 02/06/21 Cholecalciferol (Vitamin D3) (D3-50) 50,000 Unit Capsule, 10 MCG PO DAILY for SUPPLEMENT, CAP 05/16/20 B Complex with Vitamin C (B-Complex with C) 1 Each Tablet, 1 EACH PO DAILY for SUPPLEMENT, TAB 05/16/20 Dicyclomine Hcl (DICYCLOMINE HCL) 10 Mg Capsule, 10 MG PO QID for IBS, CAP 05/16/20 [Tonic Water] No Conflict Check, HS for LEG CRAMPS 05/16/20 Trazodone Hcl (TRAZODONE HCL) 50 Mg Tablet, 50 MG PO HS for INSOMNIA, TAB 05/16/20 Omeprazole (OMEPRAZOLE) 20 Mg Tablet.dr, 20 MG PO HS for GERD, TAB 05/16/20 Gemfibrozil (GEMFIBROZIL) 600 Mg Tablet, 600 MG PO DAILY for HLD, TAB 05/16/20 Duloxetine Hcl (CYMBALTA) 60 Mg Capsule.dr, 1 CAP PO DAILY for Medical management, #90 CAP 3 Refills 12/01/18 Sitagliptin Phosphate (JANUVIA) 100 Mg Tablet, 1 TAB PO DAILY for DM II, #30 TAB 5 Refills 12/01/18 Gabapentin (GABAPENTIN) 600 Mg Tablet, 600 MG PO HS for NEUROGENIC PAIN, TAB 10/17/18 Glipizide (GLIPIZIDE) 10 Mg Tablet, 10 MG PO BID for high blood sugar, TAB 08/04/18 Alprazolam (ALPRAZOLAM) 0.5 Mg Tablet, 1 TAB PO PRN BID PRN for ANXIETY, #60 TAB 06/21/18 Loperamide HCl (Imodium A-D) 2 Mg Capsule, 2 MG PO TWICE WEEKLY PRN for DIARRHEA, CAP 01/05/17 Ropinirole Hcl (REQUIP) 0.5 Mg Tablet, 1 TAB PO BID, #60 TAB 1 Refill 01/05/17 Hydrocodone/Apap 5-325 (NORCO 5-325 TABLET) 1 Each Tablet, 1 TAB PO PRN Q4HRS PRN for BREAKTHROUGH PAIN, #40 TAB Given dose at 1:45 pm May take again after 9:45 08/14/14 JIL DAVID III DO Feb 07, 2021 12:09
--- NOTE | 2021-02-07 12:13 | NUR ---
SS following up with discharge planning. SS reviewed pt chart and discussed with pt RN. Pt is currently on room air. PT/OT recommended home with home healthcare. Pt was current on services with [facility], ; fax [phone]. Discharge orders received for home with home healthcare. Discharge orders and clinical phoned and faxed to [facility]. Pt's RN notified.
--- NOTE | 2021-02-07 12:52 | CARD ---
MR#: [id number] Date of Study: 02/07/2021 Ordering Physician: ART ESPINO, Referring Physician: ART ESPINO, Tech: Esthela Garcia [facility] APPROVED REPORT EXAM: Two-dimensional and M-mode echocardiogram with Doppler and color Doppler. Other Information Quality : AverageHR: 73bpm Rhythm : NSR INDICATION Cardiac Disease: Chest Pain RISK FACTORS Hypertension Obesity 2D DIMENSIONS RVDd3.5 (2.9-3.5cm)Left Atrium(2D)4.2 (1.6-4.0cm) IVSd1.1 (0.7-1.1cm)Aortic Root(2D)3.1 (2.0-3.7cm) LVDd4.4 (3.9-5.9cm)LVOT Diameter2.2 (1.8-2.4cm) PWd1.1 (0.7-1.1cm)LVDs3.1 (2.5-4.0cm) FS (%) 29.6 %SV49.0 ml LVEF(%)56.9 (>50%) Aortic Valve AoV Peak Ayden.125.9cm/sAoV VTI29.8cm AO Peak GR.6.3mmHgLVOT Peak Ayden.124.9cm/s AO Mean GR.3mmHgAVA (VMAX)3.71cm2 Mitral Valve MV E Dtylhhtg45.7cm/sMV DECEL PJSZ833ih MV A Qxfaneei334.1cm/sE/A Ratio0.7 Pulmonary Valve PV Peak Fwnsvsla164.3cm/s Tricuspid Valve TR P. Yeyrjvlk675yr/sTR Peak Gr.28mmHg LEFT VENTRICLE The left ventricle is normal size. There is borderline to mild concentric left ventricular hypertroph y. The left ventricular systolic function is normal. Esitmated ejection fraction 60%. There is yanira l LV segmental wall motion. Transmitral Doppler flow pattern is Grade I-abnormal relaxation pattern. RIGHT VENTRICLE The right ventricle is normal size. There is normal right ventricular wall thickness. The right ventr icular systolic function is normal. ATRIA The left atrium size is normal. The right atrium size is normal. The interatrial septum is intact wit h no evidence for an atrial septal defect or patent foramen ovale as noted on 2-D or Doppler imaging. AORTIC VALVE The aortic valve is normal in structure and function. Doppler and Color Flow revealed no significant aortic regurgitation. There is no significant aortic valvular stenosis. MITRAL VALVE The mitral valve is thickened but opens well. There is no evidence of mitral valve prolapse. There is no mitral valve stenosis. Doppler and Color-flow revealed trace mitral regurgitation. TRICUSPID VALVE The tricuspid valve is normal in structure and function. Doppler and Color Flow revealed trace to mil d tricuspid regurgitation. Estimated PAP 32 mmHg. There is no tricuspid valve stenosis. PULMONIC VALVE The pulmonary valve is normal in structure and function. Doppler and Color Flow revealed trace pulmon ic valvular regurgitation. GREAT VESSELS The aortic root is normal in size. The ascending aorta is normal in size. The IVC is normal in size a nd collapses >50% with inspiration. PERICARDIAL EFFUSION There is no evidence of significant pericardial effusion. Critical Notification Critical Value: No <Conclusion> The left ventricular systolic function is normal. Esitmated ejection fraction 60%. There is normal LV segmental wall motion. Transmitral Doppler flow pattern is Grade I-abnormal relaxation pattern. Trace mitral regurgitation. Trace to mild tricuspid regurgitation. Estimated PAP 32 mmHg. There is no evidence of significant pericardial effusion. Signed by : Dimitris Wiggins, Electronically Approved : 02/07/2021 12:52:30
== END 2021-02-07 13:20 | disposition home or self-care (01) | DRG 291 ==
LOC: ER 08:39 → 6 SOUTH 12:45
PROVIDERS: ADMIT Student in an Organized Health Care Education/Training Program; ATTEND Student in an Organized Health Care Education/Training Program
DX: I11.0 Hypertensive heart disease with heart failure (principal); I50.43 Acute on chronic combined systolic (congestive) and diastolic (congestive) heart failure; I24.8 Other forms of acute ischemic heart disease; E11.40 Type 2 diabetes mellitus with diabetic neuropathy, unspecified; E78.00 Pure hypercholesterolemia, unspecified; E78.5 Hyperlipidemia, unspecified; E87.6 Hypokalemia; G25.81 Restless legs syndrome; G89.29 Other chronic pain; I25.10 Atherosclerotic heart disease of native coronary artery without angina pectoris; M79.7 Fibromyalgia; Z83.3 Family history of diabetes mellitus; Z90.49 Acquired absence of other specified parts of digestive tract; Z90.710 Acquired absence of both cervix and uterus; Z95.0 Presence of cardiac pacemaker; F32.A Depression, unspecified; F41.9 Anxiety disorder, unspecified; K21.9 Gastro-esophageal reflux disease without esophagitis
CPT/HCPCS: 36415; 71045; 80048; 80053; 80061; 81001; 82306; 82550; 82962; 83735; 83880; 84484; 85025; 87086; 93005; 93306; 93970; 96361; 96372; 96374; 96375; 96376; J2270; J2360; J3010; J7040; 97530-GP; 97535-GO; 99285-25; G0378

== ENCOUNTER 2021-03-18 10:19 | Emergency (ER) | payer MEDICARE ==
[~2021-03-18] VITALS: Ht 160 cm; Wt 81.0 kg
[~2021-03-18 10:19] MED LIST changes: +AMLO10TA4 PO; +POTA20TA4 PO
[2021-03-18 10:34] VITALS: BP 144/64
[2021-03-18] MEDS ORDERED: HYDROmorphone 2 MG/ML INJ. IM ONE ×2 (11:00→12:15)
--- NOTE | 2021-03-18 12:27 | PHYS DOC ---
Past Medical History Past Medical History: Diabetes-Type II, Fibromyalgia, High Cholesterol, H ypertension, MRSA, Other Additional Past Medical Histor: neuropathy,RLS,subarachnoid hemorrhage,VERTIGO,EDEMA,low iron, back pain, Past Surgical History: Appendectomy, Cholecystectomy, Hysterectomy, Pacemaker, Other Additional Past Surgical Histo: Multiple back surgeries, carpal tunnel, breast reduction, pain stimulator Smoking Status: Never Smoker Alcohol Use: None Drug Use: None General Adult EDM: Chief Complaint: LOWER EXT PAIN HPI: HPI: Patient is a 75 year old female with a history of diabetes type 2, hypertension, PVD, intermittent claudication of bilateral lower extremities, restless leg syndrome, over 10 back surgeries, fibromyalgia, who presents the ED today complaining of chronic 10 out of 10 bilateral lower extremity pain described as cramping, symptoms got worse in the last 1 week. Patient denies any injuries. Denies any numbness or tingling to bilateral lower extremities. She states she has had the symptoms since she started having back surgeries years ago. She states she normally comes to the ED and gets Dilaudid or morphine. She states she has seen her PCP last week and they did bilateral lower extremities venous Dopplers which were negative, they also did lab work. She states she is here specifically for pain management. Denies any fever. Denies any chest pain or shortness of breath. Review of Systems: Review of Systems: Constitutional: Denies fever or chills. [] GI: Denies abdominal pain, nausea, vomiting, bloody stools or diarrhea. [] : Denies dysuria. [] Musculoskeletal: Reports bilateral lower extremity pain Integument: Denies rash. [] Neurologic: Denies headache, focal weakness or sensory changes. [] Psychiatric: Denies depression or anxiety. [] Heart Score: C/O Chest Pain: N/A Risk Factors: Risk Factors: DM, Current or recent (<one month) smoker, HTN, HLP, family history of CAD, obesity. Risk Scores: Score 0 - 3: 2.5% MACE over next 6 weeks - Discharge Home Score 4 - 6: 20.3% MACE over next 6 weeks - Admit for Clinical Observation Score 7 - 10: 72.7% MACE over next 6 weeks - Early Invasive Strategies Current Medications: Current Medications Medications (Trade) Dose Ordered Sig/Marly Start Time Stop Time Status Last Admin Dose Admin Hydromorphone HCl (Dilaudid) 1 mg 1X ONCE 03/18/21 12:15 03/18/21 12:16 DC 03/18/21 12:19 1 MG Allergies: Allergies: Allergies Coded Allergies Type Severity Reaction Last Updated Verified Penicillins Allergy Intermediate hives 07/18/20 Yes Sulfa (Sulfonamide Antibiotics) Allergy Intermediate 07/18/20 Yes clavulanic acid Allergy Intermediate 07/18/20 Yes I S O L A T I O N *CONTACT* Allergy Unknown 07/18/20 Yes Physical Exam: PE: Constitutional: Well developed, well nourished, no acute distress, non-toxic appearance. [] Skin: Warm, dry, no erythema, no rash. [] Back: Old healed surgical incision noted on the lumbar spine. No tenderness, no CVA tenderness. [] Extremities: No tenderness, no cyanosis, no clubbing, ROM intact, no edema. [] Neurologic: Alert and oriented X 3, normal motor function, normal sensory function, no focal deficits noted. [] Psychologic: Affect normal, judgement normal, mood normal. [] Current Patient Data: Vital Signs: Vital Signs Date Time Temp Pulse Resp B/P (MAP) Pulse Ox O2 Delivery O2 Flow Rate FiO2 03/18/21 10:34 97.8 85 12 144/64 (90) Room Air 97.8 EKG: EKG: [] Radiology/Procedures: Radiology/Procedures: [] Course & Med Decision Making: Course & Med Decision Making Pertinent Labs and Imaging studies reviewed. (See chart for details) This is a 75-year-old female patient presenting to the ED today complaining of bilateral lower extremity pain that is chronic, she has had this pain for years. Reports having she has had over 10 back surgeries. Patient is in the ED requesting Dilaudid or morphine for her pain. She states typically this is what she gets. Denies any injuries. Denies any loss of bowel/bladder function. She states she has already been worked up with her PCP to rule out hypokalemia and had bilateral lower extremity venous Dopplers which were done last week which were negative. She was given Dilaudid 1 mg twice in the ED. I went to reevaluate patient. She was laying on her back, her feet up in the air and she was cycling her feet in the air, she is reporting tremendous improvement to her pain. She states she is exercising and feels better and would like to go home. She reported she will follow-up with her own PCP as soon as she can Fred Disclaimer: Fred Disclaimer: This electronic medical record was generated, in whole or in part, using a voice recognition dictation system. Departure Departure Impression: Primary Impression: Lower extremity pain Qualified Codes: M79.604 - Pain in right leg; M79.605 - Pain in left leg Disposition: 01 HOME / SELF CARE / HOMELESS Condition: STABLE Referrals: LO LEDESMA MD (PCP) follow up next week Patient Instructions: Leg Cramps Additional Instructions: Follow-up with your primary care doctor next week MANUEL ADAMES APRN Mar 18, 2021 12:27
== END 2021-03-18 12:35 | disposition home or self-care (01) ==
LOC: ER 10:19
DX: M79.604 Pain in right leg (principal); M79.605 Pain in left leg; G89.29 Other chronic pain; E78.00 Pure hypercholesterolemia, unspecified; I10 Essential (primary) hypertension; E11.40 Type 2 diabetes mellitus with diabetic neuropathy, unspecified; G25.81 Restless legs syndrome; Z86.14 Personal history of Methicillin resistant Staphylococcus aureus infection; Z90.89 Acquired absence of other organs; Z90.49 Acquired absence of other specified parts of digestive tract; Z90.710 Acquired absence of both cervix and uterus; Z95.0 Presence of cardiac pacemaker; Z88.0 Allergy status to penicillin; Z88.2 Allergy status to sulfonamides; Z91.041 Radiographic dye allergy status; Z88.8 Allergy status to other drugs, medicaments and biological substances
CPT/HCPCS: 96372; 99284; J1170

== ENCOUNTER → 2021-03-24 | Outpatient (CLI) | payer MEDICARE ==
[~2021-03-24] MED LIST changes: +MAGNESIUM SULFATE 2GM 50 ML IV ONE
[2021-03-24 14:25] VITALS: BP 136/68
== END | disposition home or self-care (01) ==
LOC: OPS 12:53
PROVIDERS: ATTEND Internal Medicine
DX: E83.42 Hypomagnesemia (principal); I11.0 Hypertensive heart disease with heart failure; I50.42 Chronic combined systolic (congestive) and diastolic (congestive) heart failure; E11.40 Type 2 diabetes mellitus with diabetic neuropathy, unspecified; I25.10 Atherosclerotic heart disease of native coronary artery without angina pectoris; E78.00 Pure hypercholesterolemia, unspecified; E78.5 Hyperlipidemia, unspecified; K21.9 Gastro-esophageal reflux disease without esophagitis; F41.9 Anxiety disorder, unspecified; F32.A Depression, unspecified; Z95.0 Presence of cardiac pacemaker; Z90.49 Acquired absence of other specified parts of digestive tract; Z90.710 Acquired absence of both cervix and uterus
CPT/HCPCS: 96365; 96366; J3475

== ENCOUNTER 2021-04-08 10:17 | Emergency (ER) | payer MEDICARE ==
[~2021-04-08] VITALS: Ht 160 cm; Wt 81.0 kg
[~2021-04-08 10:17] MED LIST changes: -MAGNESIUM SULFATE 2GM 50 ML IV ONE
[2021-04-08 10:30] VITALS: BP 152/68
--- NOTE | 2021-04-08 10:43 | PHYS DOC ---
Past Medical History Past Medical History: Diabetes-Type II, Fibromyalgia, High Cholesterol, H ypertension, MRSA, Other Additional Past Medical Histor: neuropathy,RLS,subarachnoid hemorrhage,VERTIGO,EDEMA,low iron, back pain, Past Surgical History: Appendectomy, Cholecystectomy, Hysterectomy, Pacemaker, Other Additional Past Surgical Histo: Multiple back surgeries, carpal tunnel, breast reduction, pain stimulator Smoking Status: Never Smoker Alcohol Use: None Drug Use: None General Adult EDM: Chief Complaint: PAIN CONTROL HPI: HPI: Patient is a 75-year-old female that presents today with leg pain. Patient states that she has had multiple back surgeries in the past and has chronic legs pain and restless leg syndrome, for which she is managed by Dr. Mark Garber from pain management and her primary care physician Dr. Babin. Patient states that over the last 24 hours she has had increased leg pain, she did see her primary care physician about 2 weeks ago and was ordered quinine sulfate for restless legs and leg pain. She has been unable to get that filled due to pharmacy shortage. She states that over the last 10 days that she has had difficulty getting that prescription filled and is unable to get that done. She has also has hydrocodone 5 mg at home that she uses on a chronic basis and she said that has not been helping with her pain. Patient states she also had a fall about 2 days ago and she states she falls at least 2-3 times a week. She states that she is also had home health in the past for strengthening and help with walking through physical therapy she states she just ended that a couple weeks ago. Patient does use a cane as an assistive device on a normal basis. Patient denies loss of bowel or bladder control or inability to start a stream or defecate. Patient denies numbness or tingling in her legs. Patient is here today just for a pain shot. She said she wants pain relief. Review of Systems: Review of Systems: Constitutional: Denies fever or chills. [] Eyes: Denies change in visual acuity. [] HENT: Denies nasal congestion or sore throat. [] Respiratory: Denies cough or shortness of breath. [] Cardiovascular: Denies chest pain or edema. [] GI: Denies abdominal pain, nausea, vomiting, bloody stools or diarrhea. [] : Denies dysuria. [] Musculoskeletal: Bilateral leg pain Integument: Denies rash. [] Neurologic: Denies headache, focal weakness or sensory changes. [] Endocrine: Denies polyuria or polydipsia. [] Lymphatic: Denies swollen glands. [] Psychiatric: Denies depression or anxiety. [] Heart Score: C/O Chest Pain: N/A Risk Factors: Risk Factors: DM, Current or recent (<one month) smoker, HTN, HLP, family history of CAD, obesity. Risk Scores: Score 0 - 3: 2.5% MACE over next 6 weeks - Discharge Home Score 4 - 6: 20.3% MACE over next 6 weeks - Admit for Clinical Observation Score 7 - 10: 72.7% MACE over next 6 weeks - Early Invasive Strategies Current Medications: Current Medications Medications (Trade) Dose Ordered Sig/Marly Route PRN Reason Start Time Stop Time Status Last Admin Dose Admin Hydromorphone HCl (Dilaudid) 1 mg 1X ONCE IM 04/08/21 10:45 04/08/21 10:47 DC 04/08/21 10:51 Allergies: Allergies: Allergies Coded Allergies Type Severity Reaction Last Updated Verified Penicillins Allergy Intermediate hives 03/24/21 Yes Sulfa (Sulfonamide Antibiotics) Allergy Intermediate 03/24/21 Yes clavulanic acid Allergy Intermediate 03/24/21 Yes I S O L A T I O N *CONTACT* Allergy Unknown 03/24/21 Yes Physical Exam: PE: Constitutional: Well developed, well nourished, no acute distress, non-toxic appearance. [] HENT: Normocephalic, atraumatic, bilateral external ears normal, oropharynx moist, no oral exudates, nose normal. [] Eyes: PERRLA, EOMI, conjunctiva normal, no discharge. [] Neck: Normal range of motion, no tenderness, supple, no stridor. [] Cardiovascular:Heart rate regular rhythm, no murmur [] Lungs & Thorax: Bilateral breath sounds clear to auscultation [] Abdomen: Bowel sounds normal, soft, no tenderness, no masses, no pulsatile masses. [] Skin: Warm, dry, no erythema, no rash. [] Back: No tenderness, no CVA tenderness. [] Extremities: Bilateral leg pain, patient moves and has good range of motion, she has a steady gait with use of her cane. She has no numbness or tingling and neurovascular is intact distal. Dorsalis pedis pulses 2+. Neurologic: Alert and oriented X 3, normal motor function, normal sensory function, no focal deficits noted. [] Psychologic: Affect normal, judgement normal, mood normal. [] Current Patient Data: Vital Signs: Vital Signs Date Time Temp Pulse Resp B/P (MAP) Pulse Ox O2 Delivery O2 Flow Rate FiO2 04/08/21 10:30 98.2 85 16 152/68 (96) 98 Room Air 98.2 EKG: EKG: [] Radiology/Procedures: Radiology/Procedures: [] Course & Med Decision Making: Course & Med Decision Making Pertinent Labs and Imaging studies reviewed. (See chart for details) After conferring with Dr. Dumas spoke to patient regarding chronic pain management in the emergency department. Did inform her that due to the chronic nature of her pain that in the emergency department we normally do not treat chronic pain because there is no way for us to have continual follow-up with the patient. Patient is informed that she will need to follow-up with her primary care physician on Saturday to discuss her pain management regimen. Patient will be given 1 mg of Dilaudid while here in the emergency department and that she will be discharged to follow-up with her primary care physician. Patient is informed that if she has loss of bowel or bladder control or the inability to defecate or void she will need to return to the emergency department. Gregon Disclaimer: Fred Disclaimer: This electronic medical record was generated, in whole or in part, using a voice recognition dictation system. Departure Departure Impression: Primary Impression: Chronic pain Qualified Codes: G89.29 - Other chronic pain Disposition: HOME / SELF CARE / HOMELESS Condition: STABLE Referrals: LO BABIN MD (PCP) Patient Instructions: Chronic Back Pain Additional Instructions: Continue your current medications at home which include hydrocodone. Follow-up with your primary care physician on Saturday Dr. Babin for further management of your chronic pain. VIJAYA ROLDAN CULTURE MANAGER Apr 08, 2021 10:43
[2021-04-08] MEDS ORDERED: HYDROmorphone 2 MG/ML INJ. IM ONE (10:45)
== END 2021-04-08 10:58 | disposition home or self-care (01) ==
LOC: ER 10:17
DX: G89.29 Other chronic pain (principal); M79.605 Pain in left leg; M79.604 Pain in right leg; M79.7 Fibromyalgia; E78.00 Pure hypercholesterolemia, unspecified; I10 Essential (primary) hypertension; E11.40 Type 2 diabetes mellitus with diabetic neuropathy, unspecified; Z95.0 Presence of cardiac pacemaker; Z88.0 Allergy status to penicillin; Z88.2 Allergy status to sulfonamides; Z88.1 Allergy status to other antibiotic agents; Z88.8 Allergy status to other drugs, medicaments and biological substances
CPT/HCPCS: 96372; 99284; J1170

== ENCOUNTER 2021-06-05 07:19 | Emergency (ER) | payer MEDICARE ==
[~2021-06-05] VITALS: Ht 162.6 cm; Wt 80.0 kg
[2021-06-05 07:35] VITALS: BP 142/66
[2021-06-05] MEDS ORDERED: HYDROmorphone 2 MG/ML INJ. IM ONE (08:00)
--- NOTE | 2021-06-05 08:01 | ED.ADGEN ---
Past Medical History Past Medical History: Diabetes-Type II, Fibromyalgia, High Cholesterol, H ypertension, MRSA, Other Additional Past Medical Histor: neuropathy,RLS,subarachnoid hemorrhage,VERTIGO,EDEMA,low iron, back pain, Past Surgical History: Appendectomy, Cholecystectomy, Hysterectomy, Pacemaker, Other Additional Past Surgical Histo: Multiple back surgeries, carpal tunnel, breast reduction, pain stimulator Smoking Status: Never Smoker Alcohol Use: None Drug Use: None General Adult EDM: Chief Complaint: LOWER EXT PAIN HPI: HPI: Patient is a 75 year old female coming in for pain control. Patient has a history of neuropathy and chronic lower extremity pain. Patient states she occasionally has flareups. Takes hydrocodone but has not managed the pain. Patient states she has not been able to sleep for the past couple days. Patient just saw her primary care provider 3 days ago and was worked up including electrolytes, is denying any further work-up today. Review of Systems: Review of Systems: All other systems within normal limits except for as noted in the HPI Current Medications: Current Medications Medications (Trade) Dose Ordered Sig/Marly Start Time Stop Time Status Last Admin Dose Admin Hydromorphone HCl (Dilaudid) 2 mg 1X ONCE 06/05/21 08:00 06/05/21 08:01 Allergies: Allergies: Allergies Coded Allergies Type Severity Reaction Last Updated Verified Penicillins Allergy Intermediate hives 03/24/21 Yes Sulfa (Sulfonamide Antibiotics) Allergy Intermediate 03/24/21 Yes clavulanic acid Allergy Intermediate 03/24/21 Yes I S O L A T I O N *CONTACT* Allergy Unknown 03/24/21 Yes Physical Exam: PE: Constitutional: Well developed, well nourished, no acute distress, non-toxic appearance. [] HENT: Normocephalic, atraumatic, bilateral external ears normal, nose normal. [] Eyes: PERRLA, conjunctiva normal, no discharge. [] Neck: No rigidity, supple, no stridor. [] Cardiovascular: Regular rate and rhythm, brisk cap refill. Bilateral strong DP pulse [] Lungs & Thorax: Non labored symmetric respirations, no tachypnea or respiratory distress [] Abdomen: Soft, nondistended. Skin: Warm, dry, no erythema, no rash. [] Back: Unremarkable Extremities: No deformities, range of motion grossly intact, no lower extremity edema [] Neurologic: Alert and oriented X 3, no focal deficits noted. [] Psychologic: Affect normal, judgement normal, mood normal. [] Current Patient Data: Vital Signs: Vital Signs Date Time Temp Pulse Resp B/P (MAP) Pulse Ox O2 Delivery O2 Flow Rate FiO2 06/05/21 07:35 98.6 86 16 142/66 (91) 100 98.6 EKG: EKG: [] Heart Score: C/O Chest Pain: No Risk Factors: Risk Factors: DM, Current or recent (<one month) smoker, HTN, HLP, family history of CAD, obesity. Risk Scores: Score 0 - 3: 2.5% MACE over next 6 weeks - Discharge Home Score 4 - 6: 20.3% MACE over next 6 weeks - Admit for Clinical Observation Score 7 - 10: 72.7% MACE over next 6 weeks - Early Invasive Strategies Radiology/Procedures: Radiology/Procedures: [] Course & Med Decision Making: Course & Med Decision Making Pertinent Labs and Imaging studies reviewed. (See chart for details) [] Dragon Disclaimer: Dragon Disclaimer: This electronic medical record was generated, in whole or in part, using a voice recognition dictation system. Departure Departure Impression: Primary Impression: Leg pain Disposition: HOME / SELF CARE / HOMELESS Condition: STABLE Referrals: LO LEDESMA MD (PCP) Patient Instructions: Pain, Neuropathic HARRY MARTINEZ MD Jun 05, 2021 08:01
== END 2021-06-05 09:19 | disposition home or self-care (01) ==
LOC: ER 07:19
DX: M79.604 Pain in right leg (principal); E11.9 Type 2 diabetes mellitus without complications; M79.605 Pain in left leg; G89.29 Other chronic pain; E78.00 Pure hypercholesterolemia, unspecified; I10 Essential (primary) hypertension; Z86.14 Personal history of Methicillin resistant Staphylococcus aureus infection; G25.81 Restless legs syndrome; Z95.0 Presence of cardiac pacemaker; Z90.89 Acquired absence of other organs; Z90.710 Acquired absence of both cervix and uterus; Z90.49 Acquired absence of other specified parts of digestive tract
CPT/HCPCS: 96372; 99283; J1170

== ENCOUNTER 2021-07-24 10:09 | Emergency (ER) | payer MEDICARE ==
[~2021-07-24 10:09] MED LIST changes: -CHOL4POW2 PO; +CHOL4POW6 PO; -OMEP20TA8 PO; +OMEP20TA91 PO
== END 2021-07-24 11:28 | disposition left against medical advice (07) ==
LOC: ER 10:09
DX: M79.605 Pain in left leg (principal); M79.604 Pain in right leg; Z53.21 Procedure and treatment not carried out due to patient leaving prior to being seen by health care provider

== ENCOUNTER 2021-07-29 10:03 | Emergency (ER) | payer MEDICARE ==
[~2021-07-29] VITALS: Ht 160 cm; Wt 88.0 kg
--- NOTE | 2021-07-29 10:47 | PHYS DOC ---
Past Medical History Past Medical History: Diabetes-Type II, Fibromyalgia, High Cholesterol, H ypertension, MRSA, Other Additional Past Medical Histor: neuropathy,RLS,subarachnoid hemorrhage,VERTIGO,EDEMA,low iron, back pain, Past Surgical History: Pacemaker Additional Past Surgical Histo: BACK SURGERY X 10 Smoking Status: Never Smoker Alcohol Use: None Drug Use: None General Adult EDM: Chief Complaint: LOWER EXT PAIN HPI: HPI: Patient is a 75-year-old female who presents today with bilateral leg pain. Patient states that she has chronic leg pain and is sees her primary care physician as well as Dr. Rhett Garber and pain management for her pain concerns, today she states that over the last 24 hours her home medication of hydrocodone has not been helping her pain and she presents here to the emergency department for a pain shot so that she can go home and sleep. Patient states that she saw her primary care physician approximately 2 weeks ago and saw Dr. Garber approximately 3 weeks ago and I asked if she has told them that she has been seen in the emergency department for pain and she says no I advised her to let them know that her current pain medication is not helping when she has increased pain and that maybe she needs something stronger for these times when her pain i s high. She verbalizes understanding and agreeable to talking with her pain management physician regarding her management of her pain. Review of Systems: Review of Systems: Constitutional: Denies fever or chills. [] Eyes: Denies change in visual acuity. [] HENT: Denies nasal congestion or sore throat. [] Respiratory: Denies cough or shortness of breath. [] Cardiovascular: Denies chest pain or edema. [] GI: Denies abdominal pain, nausea, vomiting, bloody stools or diarrhea. [] : Denies dysuria. [] Musculoskeletal: Bilateral leg pain Integument: Denies rash. [] Neurologic: Denies headache, focal weakness or sensory changes. [] Endocrine: Denies polyuria or polydipsia. [] Lymphatic: Denies swollen glands. [] Psychiatric: Denies depression or anxiety. [] Heart Score: C/O Chest Pain: No Risk Factors: Risk Factors: DM, Current or recent (<one month) smoker, HTN, HLP, family history of CAD, obesity. Risk Scores: Score 0 - 3: 2.5% MACE over next 6 weeks - Discharge Home Score 4 - 6: 20.3% MACE over next 6 weeks - Admit for Clinical Observation Score 7 - 10: 72.7% MACE over next 6 weeks - Early Invasive Strategies Allergies: Allergies: Allergies Coded Allergies Type Severity Reaction Last Updated Verified Penicillins Allergy Intermediate hives 03/24/21 Yes Sulfa (Sulfonamide Antibiotics) Allergy Intermediate 03/24/21 Yes clavulanic acid Allergy Intermediate 03/24/21 Yes I S O L A T I O N *CONTACT* Allergy Unknown 03/24/21 Yes Physical Exam: PE: Constitutional: Well developed, well nourished, no acute distress, non-toxic appearance. [] HENT: Normocephalic, atraumatic, bilateral external ears normal, oropharynx moist, no oral exudates, nose normal. [] Eyes: PERRLA, EOMI, conjunctiva normal, no discharge. [] Neck: Normal range of motion, no tenderness, supple, no stridor. [] Cardiovascular:Heart rate regular rhythm, no murmur [] Lungs & Thorax: Bilateral breath sounds clear to auscultation [] Abdomen: Bowel sounds normal, soft, no tenderness, no masses, no pulsatile masses. [] Skin: Warm, dry, no erythema, no rash. [] Back: No tenderness, no CVA tenderness. [] Extremities: Bilateral leg pain no tenderness with palpation, patient does ambulate with an assist device, she does have a steady gait, dorsalis pedis pulses are 2+ no edema cap refills less than 2 seconds sensory is intact Neurologic: Alert and oriented X 3, normal motor function, normal sensory function, no focal deficits noted. [] Psychologic: Affect normal, judgement normal, mood normal. [] Current Patient Data: Labs: Laboratory Tests Test 07/29/21 10:19 Urine Collection Type Unknown Urine Color (Auto) Yellow Urine Turbidity Clear Urine pH (Auto) 5.0 Urine Specific [place] 1.011 Urine Protein (Auto) Negative mg/dL Urine Glucose (Auto)(UA) Negative mg/dL Urine Ketones (Auto) Negative mg/dL Urine Blood (Auto) Negative Urine Nitrite Negative Urine Bilirubin (Auto) Negative Urine Urobilinogen (Auto) Normal mg/dL Urine Leukocyte Esterase (Auto) Negative Urine RBC 0 /HPF Urine WBC 0 /HPF Urine Squamous Epithelial Cells Few /LPF Urine Bacteria 0 /HPF Current Medications Medications (Trade) Dose Ordered Sig/Marly Route PRN Reason Start Time Stop Time Status Last Admin Dose Admin Hydromorphone HCl (Dilaudid) 1 mg 1X ONCE IM 07/29/21 11:00 07/29/21 11:01 DC 07/29/21 11:01 Vital Signs: Vital Signs Date Time Temp Pulse Resp B/P (MAP) Pulse Ox O2 Delivery O2 Flow Rate FiO2 07/29/21 10:21 98.0 61 20 104/52 (69) 98 Room Air 98.0 EKG: EKG: [] Radiology/Procedures: Radiology/Procedures: [] Course & Med Decision Making: Course & Med Decision Making Pertinent Labs and Imaging studies reviewed. (See chart for details) Patient states she does have a history of incontinence which has been ongoing for approximately 5 to 6 years, she did states she is having some pain in her lower abdomen I will check a urine while she is here I will also give her an injection of pain I did advise her to follow-up with her primary care physician and her pain management physician for further evaluation and management of her pain. 1145 I reassessed patient and she states her pain has improved I did tell her that her urine did not show any acute processes at this time. She will be sent home to follow-up with her primary care physician and her pain management academic program specialist on Saturday for further evaluation and management of her pain. Fred Disclaimer: Fred Disclaimer: This electronic medical record was generated, in whole or in part, using a voice recognition dictation system. Departure Departure Impression: Primary Impression: Chronic pain Qualified Codes: G89.29 - Other chronic pain Disposition: HOME / SELF CARE / HOMELESS Condition: STABLE Referrals: LO LEDESMA MD (PCP) RHETT GARBER MD Patient Instructions: Chronic Pain Additional Instructions: Continue your current pain medications as prescribed Follow-up with your primary care physician and your painting instructor next week for further evaluation and management of your pain. VIJAYA ROLDAN IRRIGATION SYSTEM OPERATOR July 29, 2021 10:46
[2021-07-29] MEDS ORDERED: HYDROmorphone 2 MG/ML INJ. IM ONE (11:00)
[2021-07-29 11:24] LABS: BACTERIA,URINE 0 /HPF (0-FEW); RBC,URINE 0 /HPF (0-2); WBC,URINE 0 /HPF (0-4)
[2021-07-29 11:56] VITALS: BP 155/74
== END 2021-07-29 11:57 | disposition home or self-care (01) ==
LOC: ER 10:03
DX: M79.604 Pain in right leg (principal); G89.29 Other chronic pain; I10 Essential (primary) hypertension; E78.00 Pure hypercholesterolemia, unspecified; Z86.14 Personal history of Methicillin resistant Staphylococcus aureus infection; E11.40 Type 2 diabetes mellitus with diabetic neuropathy, unspecified; G25.81 Restless legs syndrome; Z95.0 Presence of cardiac pacemaker; Z88.0 Allergy status to penicillin; Z88.2 Allergy status to sulfonamides; Z91.041 Radiographic dye allergy status; Z88.8 Allergy status to other drugs, medicaments and biological substances
CPT/HCPCS: 81001; 96372; 99283; J1170

== ENCOUNTER 2021-08-01 08:18 | Emergency (ER) | payer MEDICARE ==
[~2021-08-01] VITALS: Ht 162.6 cm; Wt 81.1 kg
[2021-08-01 10:11] VITALS: BP 116/56
--- NOTE | 2021-08-01 10:39 | PHYS DOC ---
Past Medical History Past Medical History: Anemia (iron deficient), Diabetes-Type II, Fibromyalgia, High Cholesterol, Hypertension, MRSA, Other Additional Past Medical Histor: neuropathy,RLS,subarachnoid hemorrhage,VERTIGO,EDEMA,back pain, Past Surgical History: Pacemaker Additional Past Surgical Histo: BACK SURGERY X 10 Smoking Status: Never Smoker Alcohol Use: None Drug Use: None General Adult EDM: Chief Complaint: LOWER EXT PAIN HPI: HPI: Patient is a 75 year old female with past medical history that includes jennyfer pheral neuropathy and chronic lower extremity pain who presents with worsening lower extremity pain. Patient was seen 3 days ago for the same complaints. Patient reports she has been unable to sleep secondary to her pain at night. She takes hydrocodone at home, which she reports does not help her pain. She requires multiple verbal stimuli to complete interview, appears drowsy. Patient does admit that yesterday, when she was standing up from the toilet, she fell forward and hit the right side of her face and now has a bruise. She and her both deny loss of consciousness. Patient denies headache, vision changes, neck pain. Review of Systems: Review of Systems: Constitutional: Denies fever, chills or generalized weakness Eyes: Denies change in visual acuity, visual field deficits or discharge HENT: Denies ear pain, nasal congestion or sore throat Respiratory: Denies cough or shortness of breath Cardiovascular: Denies chest pain, palpitations or edema GI: Denies abdominal pain, nausea, vomiting, bloody stools or diarrhea : Denies dysuria or hematuria Musculoskeletal: See HPI Integument: Denies rash or other skin lesion Neurologic: See HPI Heart Score: C/O Chest Pain: No Allergies: Allergies: Allergies Coded Allergies Type Severity Reaction Last Updated Verified Penicillins Allergy Intermediate hives 08/01/21 Yes Sulfa (Sulfonamide Antibiotics) Allergy Intermediate hives 08/01/21 Yes clavulanic acid Allergy Intermediate 03/24/21 Yes I S O L A T I O N *CONTACT* Allergy Unknown 03/24/21 Yes Physical Exam: PE: Constitutional: Well developed, well nourished, no acute distress, non-toxic appearance. HENT: Normocephalic, atraumatic, bilateral external ears normal, nose normal. Eyes: PERRL, EOMI, ecchymosis noted to inner right eye without periorbital swelling, conjunctiva normal, no discharge. Neck: Normal range of motion, no tenderness, no stridor. Cardiovascular: Heart regular rate and rhythm. No apparent murmurs, rubs or gallops. Lungs & Thorax: Equal thoracic expansion, no increased work of breathing. Skin: Warm, dry, no erythema, no rash. Extremities: Bilateral lower legs diffusely tender to palpation, no cyanosis, no clubbing, active and passive ROM intact, no edema, distal pulses 2+ and symmetrical. Neurologic: Alert and oriented x4, drowsy, normal motor function, normal sensory function, no focal deficits noted. Current Patient Data: Vital Signs: Vital Signs Date Time Temp Pulse Resp B/P (MAP) Pulse Ox O2 Delivery O2 Flow Rate FiO2 08/01/21 10:11 63 16 116/56 (76) 95 Room Air 08/01/21 09:41 61 16 109/52 (71) 95 Room Air 08/01/21 09:11 64 16 123/58 (79) 95 Room Air 08/01/21 08:40 98.4 66 18 130/59 (82) 97 Room Air 98.4 Radiology/Procedures: Radiology/Procedures: PROCEDURE: CT HEAD AND CERVICAL SPINE WO CT HEAD AND C-SPINE WO History: Fall from toilet. Comparison: CT head 01/19/2019. CT head and cervical spine 12/01/2018. Technique: Noncontrast CT of the head and cervical spine. Findings: CT HEAD: There is no evidence for intracranial mass or hemorrhage. There is no hydrocephalus or midline shift. No abnormal extra-axial fluid collections are present. No evidence of acute territorial infarction. Right posterior parietal encephalomalacia change. Prominence of the ventricles and sulci. The visualized paranasal sinuses and mastoid air cells are clear. The skull and scalp are within normal limits. CT CERVICAL SPINE: There is no evidence for fracture in the cervical spine. Reversal of the normal cervical lordosis with apex at C6-C7. Severe disc space narrowing with uncovertebral circumferential osteophytes C5- C6, C6-C7. Multilevel severe facet hypertrophic degenerative change. Multilevel moderate or greater foraminal stenoses. No destructive osseous lesions are seen. Unchanged punctate calcification in the left thyroid. Soft tissues and lung apices are otherwise unremarkable. Impression: 1. No acute intracranial findings. 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 2. No acute osseous abnormality in the cervical spine. Advanced multilevel degenerative changes. ------- Exposure: One or more of the following individualized dose reduction techniques were utilized for this examination: 1. Automated exposure control 2. Adjustment of the mA and/or kV according to patient size 3. Use of iterative reconstruction technique. Electronically signed by: Gray Dave MD (08/01/2021 11:03 AM) [id number] Course & Med Decision Making: Course & Med Decision Making Pertinent Labs and Imaging studies reviewed. (See chart for details) Patient is had multiple visits for similar lower extremity pain complaints. Since her visit the other day, she has not attempted to contact Dr. Hurd, her car painter, or her primary care doctor. Secondary to head trauma yesterday and drowsiness today, CT head and neck was also ordered. Patient states that the pain has kept her awake, so she has been very tired. She took hydrocodone today, which apparently has resolved her. No cough that she is able to sleep, she is very drowsy during her stay today. It is unclear whether her drowsiness is due to sleep deprivation secondary to pain or possible sequelae of head trauma. CT imaging was negative today. Patient was reassured. I counseled patient and her at bedside on resuming a higher dose of gabapentin at night for her peripheral neuropathy. Additionally, I provided Dr. Hurd phone number again, so that they might schedule an appointment this week. Patient counseled that chronic pain is more appropriately managed by either primary care or pain management. All other questions were answered. Return precautions were provided. Patient and her understand are agreeable to discharge plan. Fred Disclaimer: Fred Disclaimer: This electronic medical record was generated, in whole or in part, using a voice recognition dictation system. Departure Departure Impression: Primary Impression: Lower extremity pain Qualified Codes: M79.604 - Pain in right leg; M79.605 - Pain in left leg Additional Impression: Fall from standing Qualified Codes: W19.XXXA - Unspecified fall, initial encounter Disposition: HOME / SELF CARE / HOMELESS Condition: STABLE Referrals: LO LEDESMA MD (PCP) RHETT HURD MD Patient Instructions: Chronic Pain, Diabetic Neuropathy Additional Instructions: EMERGENCY DEPARTMENT GENERAL DISCHARGE INSTRUCTIONS Thank you for coming to [facility] Emergency Department (ED) today and trusting us with you care. We trust that you had a positive experience in our Emergency Department. If you wish to speak to the department management, you may call the director at . YOUR FOLLOW UP INSTRUCTIONS ARE FOLLOWS: 1. Follow up with your primary care doctor. If you do not have a primary doctor, please ask for a resource list of physicians or clinics that may be able to assist you with follow up care. 2. The emergency provider has interpreted your imaging studies, if any were ordered. The radiology senior it specialist also reviewed them. If there is a change in the findings, you will be notified in 48 hours when at all possible. 3. If a lab test or culture has been done, your results will be reviewed and you will be notified if you need a change in treatment. 4. Follow instructions verbalized to you and refer to the printouts if needed. ADDITIONAL INSTRUCTIONS AND INFORMATION: 1. Your care today has been supervised by a physician who is specially trained in emergency care. Many problems require more than one evaluation for a complete diagnosis and treatment. We recommend that you schedule your follow up appointment as recommended to ensure complete treatment of you illness or injury. If you are unable to obtain follow up care and continue to have a problem, or if your condition worsens, we recommend that you return to the ED. 2. We are not able to safely determine your condition over the phone nor are we able to give sound medical advice over the phone. For these safety reasons, if you call for medical advice we will ask you to come to the ED for further evaluation. 3. If you have any questions regarding these discharge instructions please call the ED at . SAFETY INFORMATION: In the interest of safety, wellness, and injury prevention; we encourage you to wear your seat belt, if you smoke; quite smoking, and we encourage family to use a protective helmet for bicycling and other sporting events that present an increased risk for head injury. IF YOUR SYMPTOMS WORSEN OR NEW SYMPTOMS DEVELOP, OR YOU HAVE CONCERNS ABOUT YOUR CONDITION; OR IF YOUR CONDITION WORSENS WHILE YOU ARE WAITING FOR YOUR FOLLOW UP APPOINTMENT; EITHER CONTACT YOUR PRIMARY CARE DOCTOR, THE PHYSICIAN WHOSE NAME AND NUMBER YOU WERE GIVEN, OR RETURN TO THE ED IMMEDIATELY. ROHIT KELLY August 01, 2021 10:39
--- NOTE | 2021-08-01 11:06 | RAD ---
CT HEAD AND C-SPINE WO History: Fall from toilet. Comparison: CT head 01/19/2019. CT head and cervical spine 12/01/2018. Technique: Noncontrast CT of the head and cervical spine. Findings: CT HEAD: There is no evidence for intracranial mass or hemorrhage. There is no hydrocephalus or midline shift. No abnormal extra-axial fluid collections are present. No evidence of acute territorial infarction. Right posterior parietal encephalomalacia change. Promin ence of the ventricles and sulci. The visualized paranasal sinuses and mastoid air cells are clear. The skull and scalp are within normal limits. CT CERVICAL SPINE: There is no evidence for fracture in the cervical spine. Reversal of the normal cervical lordosis with apex at C6-C7. Severe disc space narrowing with uncovertebral circumferential osteophytes C5-C6, C6-C7. Multilevel severe facet hypertrophic degenerative change. Multilevel moderate or greater foraminal st enoses. No destructive osseous lesions are seen. Unchanged punctate calcification in the left thyroid. Soft tissues and lung apices are otherwise unre markable. Impression: 1. No acute intracranial findings. 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 2. No acute osseous abnormality in the cervical spine. Advanced multilevel degenerative changes. ------- Exposure: One or more of the following individualized dose reduction techniques were utilized for thi s examination: 1. Automated exposure control 2. Adjustment of the mA and/or kV according to patient size 3. Use of iterative reconstruction technique. Electronically signed by: Gray Dave MD (08/01/2021 11:03 AM) [id number]
[2021-08-01] MEDS ORDERED: GABAPENTIN 300 MG CAPSULE. PO ONE (11:30)
== END 2021-08-01 11:31 | disposition home or self-care (01) ==
LOC: ER 08:18
DX: S00.11XA Contusion of right eyelid and periocular area, initial encounter (principal); M79.605 Pain in left leg; M79.604 Pain in right leg; G89.29 Other chronic pain; M79.7 Fibromyalgia; E78.00 Pure hypercholesterolemia, unspecified; E11.40 Type 2 diabetes mellitus with diabetic neuropathy, unspecified; Z86.2 Personal history of diseases of the blood and blood-forming organs and certain disorders involving the immune mechanism; Z95.0 Presence of cardiac pacemaker; Z88.0 Allergy status to penicillin; Z88.2 Allergy status to sulfonamides; Z88.1 Allergy status to other antibiotic agents; Z88.8 Allergy status to other drugs, medicaments and biological substances; W18.09XA Striking against other object with subsequent fall, initial encounter; Y93.89 Activity, other specified; Y92.89 Other specified places as the place of occurrence of the external cause; Y99.8 Other external cause status
CPT/HCPCS: 70450; 72125; 99284

== ENCOUNTER 2021-08-08 02:18 | Emergency (ER) | payer MEDICARE ==
[~2021-08-08] VITALS: Ht 160 cm; Wt 79.0 kg
[2021-08-08] MEDS ORDERED: HYDROmorphone 2 MG/ML INJ. IM ONE (03:30)
[2021-08-08 03:45] VITALS: BP 115/51
--- NOTE | 2021-08-08 03:46 | PHYS DOC ---
Past Medical History Past Medical History: Anemia, Diabetes-Type II, Fibromyalgia, High Cholesterol, Hypertension, MRSA, Other Additional Past Medical Histor: Restless leg, lumbar stenosis, low back pain Past Surgical History: Pacemaker Additional Past Surgical Histo: BACK SURGERY X 10 Smoking Status: Never Smoker Alcohol Use: Occasionally Drug Use: None General Adult EDM: Chief Complaint: LOWER EXT PAIN HPI: HPI: 75-year-old female, chronic back pain, DM with severe peripheral neuropathic pain, who presents again today with bilateral leg pain. Patient states she has been on [place] 10 for 25+ years, and has not seen her pain specialist Dr. Mark Garber about her worsening pain. Her at bedside states that he tried to call their office yesterday around 5pm but it was closed. This is now the patient's 6th ED visit within the last 2-3 weeks for the same complaint. Patient also states that her DM is also not well controlled and also has not made the effort to f/u with her PMD. Per previous notes, patient has been getting 1mg Dilaudid IM. Patient states nothing helps and she is asking for the pain shot so that she can go home and sleep. Review of Systems: Review of Systems: Constitutional: Denies fever or chills. [] Eyes: Denies change in visual acuity. [] HENT: Denies nasal congestion or sore throat. [] Respiratory: Denies cough or shortness of breath. [] Cardiovascular: Denies chest pain or edema. [] GI: Denies abdominal pain, nausea, vomiting, bloody stools or diarrhea. [] : Denies dysuria. [] Musculoskeletal: +BLE pain, Denies back pain or joint pain. [] Integument: Denies rash. [] Neurologic: Denies headache, focal weakness or sensory changes. [] Endocrine: Denies polyuria or polydipsia. [] Lymphatic: Denies swollen glands. [] Psychiatric: Denies depression or anxiety. [] Heart Score: C/O Chest Pain: No Risk Factors: Risk Factors: DM, Current or recent (<one month) smoker, HTN, HLP, family history of CAD, obesity. Risk Scores: Score 0 - 3: 2.5% MACE over next 6 weeks - Discharge Home Score 4 - 6: 20.3% MACE over next 6 weeks - Admit for Clinical Observation Score 7 - 10: 72.7% MACE over next 6 weeks - Early Invasive Strategies Current Medications: Current Medications Medications (Trade) Dose Ordered Sig/Marly Start Time Stop Time Status Last Admin Dose Admin Hydromorphone HCl (Dilaudid) 1 mg 1X ONCE 08/08/21 03:30 08/08/21 03:31 08/08/21 03:23 1 MG Allergies: Allergies: Allergies Coded Allergies Type Severity Reaction Last Updated Verified Penicillins Allergy Intermediate hives 08/08/21 Yes Sulfa (Sulfonamide Antibiotics) Allergy Intermediate hives 08/08/21 Yes clavulanic acid Allergy Intermediate 08/08/21 Yes I S O L A T I O N *CONTACT* Allergy Unknown 03/24/21 Yes Physical Exam: PE: Constitutional: elderly female, Well developed, well nourished, no acute distress, non-toxic appearance. [] HENT: Normocephalic, atraumatic, bilateral external ears normal, oropharynx moist, no oral exudates, nose normal. [] Eyes: PERRLA, EOMI, conjunctiva normal, no discharge. [] Neck: Normal range of motion, no tenderness, supple, no stridor. [] Cardiovascular:Heart rate regular rhythm, no murmur [] Lungs & Thorax: Bilateral breath sounds clear to auscultation [] Abdomen: Bowel sounds normal, soft, no tenderness, no masses, no pulsatile masses. [] Skin: Warm, dry, no erythema, no rash. [] Back: No tenderness, no CVA tenderness. [] Extremities: No tenderness, no cyanosis, no clubbing, ROM intact, no edema. [] Neurologic: Alert and oriented X 3, normal motor function, normal sensory function, no focal deficits noted. [] Psychologic: Affect normal, judgement normal, mood normal. [] Current Patient Data: Vital Signs: Vital Signs Date Time Temp Pulse Resp B/P (MAP) Pulse Ox O2 Delivery O2 Flow Rate FiO2 08/08/21 03:23 20 97 Room Air 08/08/21 02:30 98.6 89 135/69 (91) 98.6 EKG: EKG: [] Radiology/Procedures: Radiology/Procedures: [] Course & Med Decision Making: Course & Med Decision Making Pertinent Labs and Imaging studies reviewed. (See chart for details) Additional Social History: PMD from non-affiliated facility. Patient Lives at home. Family History: Non-pertinent to today's complaint. Nursing Notes Reviewed Previous Medical Records requested via [employer]: Reviewed by me. EMERGENCY DEPARTMENT COURSE/ MEDICAL DECISION MAKING: I examined the patient, evaluated and addressed patient's chief complaint. 75 yo F with chronic back pain and severe peripheral neuropathy, chronically on [place]'s + gabapentin for several years, now 6th ED visit within 2-3 weeks for same BLE pain complaint asking for "pain shot." Last several visits, patient was given Dilaudid IM. For some reason, patient still has not followed up with Dr. Garber her pain specialist or her PMD for better diabetic control. Patient became tearful and remorseful after I gave an extensive oliver talk about the dangers of narcotics and that this was inappropriate use of the ED. The patient was treated with Dilaudid IM and I warned her that if she returns again to the ED again for the same complaint and they still have not made the effort to see Dr. Garber & her PMD that she will not get any medication. Patient and her agree to call Dr. Garber first thing in the morning. The patient understands that todays Emergency Department evaluation does not represent a comprehensive medical workup, and it is impossible to diagnose all possible illnesses from a single Emergency Department visit. The patient verbalized understanding that it is absolutely necessary to have follow-up with regular primary care physician within 1-2 days for more detailed workup and continued exam. I explained the findings and plan to the patient, who expressed verbal understanding and agreed with plan for discharge and follow up . The patient was given after care instructions and welcomed to return to the ED for re-evaluation in 8-12 hours, especially for any new or worsening symptoms. Patient's blood pressure was elevated (>120/80) but appears stable without evidence of end organ damage, malignant hypertension, hypertensive emergency or urgency. The patient was counseled about the risks of hypertension and urged to pursue outpatient monitoring and therapy within a week with their primary care physician. The patient was stable at the time of discharge. DIAGNOSTIC IMPRESSION: 1. chronic peripheral neuropathic pain 2. Opioid addiction and dependence DISPOSITION: Disposition: Discharge Home. Condition: Improved Follow-Up: PMD, pain specialist Prescriptions: None Return to the Emergency Department for new or worsening symptoms. Dragon Disclaimer: Dragon Disclaimer: This electronic medical record was generated, in whole or in part, using a voice recognition dictation system. Departure Departure Impression: Primary Impression: DM (diabetes mellitus) Additional Impressions: Chronic peripheral neuropathic pain Opioid abuse Opioid dependence Disposition: HOME / SELF CARE / HOMELESS Condition: STABLE Patient Instructions: Pain, Neuropathic, Diabetes Meal Planning Guide Additional Instructions: Please follow up with your primary care provider and pain specialist as soon as possible. JESSI STANTON MD August 08, 2021 03:46
== END 2021-08-08 03:45 | disposition home or self-care (01) ==
LOC: ER 02:18
DX: E11.42 Type 2 diabetes mellitus with diabetic polyneuropathy (principal); G89.29 Other chronic pain; F11.10 Opioid abuse, uncomplicated; E78.00 Pure hypercholesterolemia, unspecified; I10 Essential (primary) hypertension; G25.81 Restless legs syndrome; Z86.14 Personal history of Methicillin resistant Staphylococcus aureus infection; Z95.0 Presence of cardiac pacemaker; Z98.890 Other specified postprocedural states; Z88.0 Allergy status to penicillin; Z88.2 Allergy status to sulfonamides; Z91.041 Radiographic dye allergy status; Z88.8 Allergy status to other drugs, medicaments and biological substances
CPT/HCPCS: 96372; 99283; J1170

== ENCOUNTER → 2021-08-10 | Outpatient (CLI) | payer MEDICARE ==
[2021-08-08 03:45] VITALS: BP 115/51
--- NOTE | 2021-08-11 11:03 | RAD ---
XR CHEST 2V History: Reason: SHORTNESS OF BREATH / Spl. Instructions: / History: Comparison: February 05, 2021 Findings: No consolidation or pleural effusion. Normal heart size. No pneumothorax. Spinal stimulator leads not ed. Postop changes lumbar spine. Left-sided pacemaker, unchanged. Elevation of the right hemidiaphrag m, unchanged. Impression: 1. No acute cardiopulmonary process. Electronically signed by: Ignacio Trimble DO (08/11/2021 11:01 AM) [id number]
== END ==
LOC: RAD 15:13
PROVIDERS: ATTEND Internal Medicine Critical Care Medicine
DX: R06.02 Shortness of breath (principal); Z95.0 Presence of cardiac pacemaker
CPT/HCPCS: 71046